=== PATIENT | female | born 1970 | race Caucasian/White ===

== ENCOUNTER → 2017-12-08 12:40 | Outpatient (REF) | payer OTHER, SELFPAY ==
[2017-12-08 14:11] LABS: Iron 64 ug/dL (50-175); Total Iron Binding Capacity 389 ug/dL (250-450); Transferrin Sat 16 % (15-50)
[2017-12-08 14:28] LABS: Ferritin 26 ng/mL (8-388)
[2017-12-08 14:49] LABS: Abs Immature Grans 0.03 k/cumm (0.0-0.09); Absolute Basophil Count 0.03 k/cumm (0.0-0.2); Absolute Eosinophil Count 0.04 k/cumm (0.0-0.7); Absolute Lymphocyte Count 1.48 k/cumm (1.2-3.4); Absolute Monocyte Count 0.62 k/cumm (0.11-0.7); Absolute Neutrophil Count 7.13 k/cumm (1.2-6.7); Basophils % 0.3; Eosinophils % 0.4; HCT 40.7 % (36.0-46.0); HGB 13.5 g/dL (12.0-15.5); Immature Grans % 0.3; Lymphocytes % 15.9; Mean Corp. HGB Concentration 33.2 g/dL (32.0-36.0); Mean Corpuscular Hemoglobin 30.3 pg (27.0-33.0); Mean Corpuscular Volume 91.5 fL (80-95); Mean Platelet Volume 10.5 fL (8.0-11.0); Monocytes % 6.6; Neutrophils % 76.5; Platelet Count 276 x1000/uL (130-400); RBC 4.45 m/cumm (4.00-5.20); RBC Distribution Width 14.9 % (11.7-14.6); Reticulocyte 1.6 % (0.5-2.4); White Blood Cell Count 9.33 k/cumm (4.4-10.8)
== END ==
LOC: NCHCN 12:40
PROVIDERS: Visit Provider Nurse Practitioner
DX: D64.9 Anemia, unspecified (principal)
CPT/HCPCS: 82728; 83540; 83550; 85025; 85045

== ENCOUNTER 2017-12-11 13:30 | Outpatient (RCR) | payer OTHER, SELFPAY ==
--- NOTE | 2017-11-28 08:30 | PTTR_ITS ---
DATE: 11/28/17 SUBJECTIVE: Iris states that her shoulder has been feeling pretty good. She was able to compete in her [employer] race last weekend and states that her shoulder didn't bother her at all. She has been good about doing her exercises and has also started a boxing class. Manual therapy: ([id number]). Patient demonstrates full AROM of the R shoulder. Her IR is comparable to the L side with both thumbs to T8. The patient denies pain. She received PROM of the R shoulder with impingement symptoms of 165 degrees of flexion and 160 degrees abduction. IR/ER are full. She received grade 2 AP and inferior GH joint mobilizations and cross friction massage to the greater tuberosity in sidelying. She received deep tissue mobilization techniques throughout the posterior cuff and friction massage to posterior capsule. Back in supine she tolerates full PROM without pain. Therapeutic procedures ([id number]). Patient was instructed in a progressed HEP consisting of 3 sets of 10 of the followin: Kneeling tricep kick backs with green theraband resistance. 2: Shoulder flexion at 90 degrees with 3-5# resistance 3: Overhead press with 3-5# resistance. The patient understands to stay within painfree ranges with this. I will plan to follow up with her in 2 weeks time for re-evaluation and progression. Direct treatment time: 30 mins Total treatment time: 30 mins SS/dl
--- NOTE | 2017-12-11 14:23 | PTTR_ITS ---
DATE: 12/11/17 SUBJECTIVE: Nina states that her shoulder had been feeling really good until yesterday. She did a barbell class yesterday and a dumbbell class today, and states that she struggled with each. She reports difficulty with overhead press with empty barbell (45#) and flies (20# dumbbells). Compliant with HEP: x Yes No OBJECTIVE: Manual therapy: ([id number]).Iris demonstrates full AROM, although with endrange pain into flexion and functional IR. She demonstrates full ER and IR, and does not demonstrate any compensatory scapular motions. She does demonstrate hypomobility of the right GH joint with both inferior and AP glides, and she received grade III joint mobs here. This was followed by lateral distraction techniques in cross body position, as well as CFM to the long head of the biceps tendon. Post-rx, she has improved comfort with functional IR and flexion. Therapeutic procedures ([id number]). * x HEP review: * x Provided skilled instruction in proper exercise performance: Patient demonstrated press ups and flies, both reproducing pain with her preferred weight. Dropped these to 15# resisted press up, which she completes without pain. and 15# resisted flies, with only minor end-range discomfort. She was instructed in towel stretch for IR and biceps stretching, both to be performed prior to resisted workouts. Direct treatment time: 25 minutes Total treatment time: 25 minutes A/P: Will have Nina continue her HEP, progressing her weight as she's able to tolerate. She'll contact me with any questions or concerns, and if I don't hear from her in 4 weeks, will consider formally discharged.
== END 2017-12-26 23:59 | disposition home or self-care (01) ==
LOC: PT 13:30
PROVIDERS: Visit Provider Nurse Practitioner
DX: M65.811 Other synovitis and tenosynovitis, right shoulder (principal)
CPT/HCPCS: 97110; 97140

== ENCOUNTER 2018-01-13 06:08 | Day surgery (SDC) | payer OTHER, SELFPAY ==
[2018-01-13 06:23] VITALS: BP 125/66; PULSE 56; RESP 16; TEMP 36.7; O2SAT 16
[2018-01-13] MEDS: Lactated Ringers 1,000 ML 30 ML IV (06:48)
[2018-01-13] MEDS: Bupivacaine 0.5% Pres-Free 30 ML VIAL (07:49)
--- NOTE | 2018-01-13 08:05 | ROE_ITS ---
Date of service: 01/13/18 Time of Service: 08:05 Operative Note DATE OF PROCEDURE: 01/13/18 PRE-OP DIAGNOSIS: 1. Rectal Pain 2. Constipation 3. Anal Fissure POST-OP DIAGNOSIS: same PROCEDURE: 1. Examination Under Anesthesia of Anus and Rectum 2. Lateral Sphincterotomy SURGEON: Quincy Mcdonald SECRET SERVICE AGENT: Lia Waters ANESTHESIA: MAC (Anesthestist: Davion Betancourt CRNA ASA II Mallampati 2) and local (Exparel 1.3 % mixed with 0.5% marcaine plain) ESTIMATED BLOOD LOSS: 1 COMPLICATIONS: None Patient was transported to: PACU Patient's condition: stable Indications: This is a 47-year-old woman, who has noticed over the last year worsening constipation associated with increasing discomfort. She was seen by her primary care provider recently, upon digital rectal exam it was felt to feel a mass in the rectoanal margin and was referred for evaluation. She denied any loss of weight, diaphoretic episodes, malaise or fatigue. She does say she has had increasing constipation. She has noticed difficulty having bowel movements and some discomfort occasionally with blood seen in the stool, but not often. It was recommended she undergo colonoscopy which she subsequently did. 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 It was further recommended that she have an Examination Under Anesthesia of the anus and rectum. The procedure was reviewed with her and the risks discussed. All her questions were answered to her satisfaction consent was obtained to proceed with examination under anesthesia with possible lateral sphincterotomy. Findings: Examination of the anus and rectum demonstrated a chronic anal fissure in the posterior midline with associated sentinel pile. Lateral sphincterotomy was subsequently performed. Procedure Description: The patient was brought to the preanesthesia staging area. Her identification was confirmed, and procedure reviewed. She was then brought to the operating room. She was positioned prone, all bony prominences were padded. Sedation was titrated for effect by the FLOWER STRIPPER. Monitoring for telemetry, end-tidal CO2, O2 saturation, blood pressure, were applied prior to induction of anesthesia. She had sequential compression devices placed also prior to anesthesia. An appropriate timeout was taken reviewing the patient's, identification, allergies medications, and procedure. The gluteal cleft was in the standard taping method. Perineum prepped with Betadine, and draped in the standard sterile fashion. I began by performing an digital rectal examination, in which I could feel tightened band of external sphincter muscle, measuring about 1 cm in width. I could also feel a lump in the posterior midline at about the level of the tightened band. I then dilated the anus using a bullet anoscope, inspecting the distal rectum and anus circumferentially. In doing this, I confirmed the presence of the posterior midline anal fissure with an associated sentinel pile that confirmed its chronicity. I then proceeded to treat this. I performed a lateral sphincterotomy in the following manner to treat the muscle picture. 90 degrees to the left of the posterior midline, I made a 2 cm radial incision, starting just above the anal verge and radiating out. I then used blunt dissection to dissect the palpable portion of the external sphincter muscle. Bluntly dissecting anterior and posterior to this muscle; I then used a right angle clamp to go under the tightened portion of the muscle and draw this up into the incision where it was visible. This segment was about a centimeter long and it was sharply divided using cautery. I obtained hemostasis with cautery. The wound was left open and a dry sterile dressing was applied. Prior to applying the dressing 1.3% Exparel mixed with half percent Marcaine plain was circumferentially injected around the anus. The patient was awakened in the operating room. She was brought to the day surgery recovery area in good condition. There were no complications during the case the patient tolerated very well.
[2018-01-13 08:15] VITALS: BP 148/89; PULSE 58; RESP 18; TEMP 36.5; O2SAT 100
--- NOTE | 2018-01-13 08:16 | W.PM.DSUDISC ---
Discharge Plan Disposition Patient Disposition: HOME Condition: Good Discharge Details Reason For Visit: ANAL FISSURE Attending Provider: Quincy Mcdonald Primary Care Provider: Meredith Rapp Home Meds and New Rx's Prescriptions: No Action cetirizine [Zyrtec] 10 MG tablet 10 mg PO DAILY PRNRF: 0 oxybutynin chloride 10 MG tablet extended release 24hr 10 mg PO DAILY RF: 0 methotrexate sodium 2.5 MG tablet 9 tab PO .WEEKLY RF: 0 lisinopril 10 MG tablet 10 mg PO DAILY RF: 0 folic acid 1 MG tablet 1 mg PO DAILY RF: 0 montelukast [Singulair] 10 MG tablet 10 mg PO DAILY RF: 0 fluticasone [Flonase Allergy Relief] 9.9 ML spray,suspension 9.9 ml NS DAILY RF: 0 naproxen 500 MG tablet 500 mg PO BID PRNRF: 0 adalimumab [Humira Pen Psoriasis-Uveitis] 40 MG/0.8 ML pen injector kit 40 mg SQ .QOWEEK RF: 0 multivitamin [Daily Multi-Vitamin] 1 EACH tablet 1 ea PO DAILY RF: 0 docusate sodium [Colace] 100 MG capsule 100 mg PO DAILY PRNRF: 0 Discharge Instructions Instructions: Sphincterotomy (DC) Additional Instructions: Dr. Quincy Mcdonald Post-Operative Discharge Instructions 1. Because there will be medication in your system for the next 24 hours, you may feel a little sleepy. Your coordination will be affected. Therefore: Do not drive or operate dangerous equipment for 24 hours. Do not drink alcohol beverages for 24 hours (not even beer). Plan to go home and rest for the day. Restrictions: Do not lift over 20lbs for 2 weeks. No strenuous bending or twisting for 2 weeks, if it hurts stop. No baths, you can shower. Let warm soapy water run over wound, then pat wound dry. Activity: The day of surgery spend most of the day resting in a comfortable bed or recliner. 2-3 times during the day get up and walk around the house. The day after surgery, or after your discharge, walk at least 3 times a day and spend increasing amounts of time walking and sitting up. If you are tired rest, but keep moving as able. Diet: Resume home diet as tolerated. Start with a light diet, your appetite will improve with time. Drink at least 4-6 glasses of water per day to keep hydrated. Wound Care: You may cover the wound with a dry sterile dressing to keep clothing from rubbing against the wound. Continue all your regular medications unless directed otherwise. Call the office or the Hospital Plan Consultant , If you have: Pain not controlled with pain medication. Nausea and vomiting. Temperature greater than 101 degrees Fahrenheit. Drainage from your wound that soaks through your dressing. *No more than 4000 milligrams of Tylenol in 24 hours. Narcotic pain medication can be constipating, if you have not had a bowel movement within 3 days use a laxative, I recommend Milk of Magnesia (MOM) 1oz. every 6 hrs until you have a bowel movement. I understand the above instructions and have no questions. Signature of Patient or Responsible Adult Escort Date/Time Name of Responsible Adult Escort Signature of Nurse Date/Time Revised 08/20/10 Referrals: Quincy Mcdonald DO [ [facility] STAFF PHYSICIAN] - 01/26/18 1:15 pm (Follow up after Lateral sphincterotomy for Anal Fissure) Activity:: see instructions Remove Dressings/Wound Care:: 48 hours Shower/Bathe:: 48 hours Diet:: resume regular diet DS: Diagnosis Discharge Diagnosis (1) Anal fissure: Start date: 01/13/18 Start time: 08:17 Status: Acute Asessment and Plan: EUA of anus and rectum with lateral sphincterotomy
[2018-01-13 08:20] VITALS: BP 151/85; PULSE 64; RESP 19; TEMP 36.4; O2SAT 100
--- NOTE | 2018-01-13 08:24 | PDOC.DSDIS_ITS ---
Discharge Plan Disposition Patient Disposition: HOME Condition: Good Discharge Details Reason For Visit: ANAL FISSURE Attending Provider: Quincy Mcdonald Primary Care Provider: Meredith Rapp Home Meds and New Rx's Prescriptions: No Action cetirizine [Zyrtec] 10 MG tablet 10 mg PO DAILY PRNRF: 0 oxybutynin chloride 10 MG tablet extended release 24hr 10 mg PO DAILY RF: 0 methotrexate sodium 2.5 MG tablet 9 tab PO .WEEKLY RF: 0 lisinopril 10 MG tablet 10 mg PO DAILY RF: 0 folic acid 1 MG tablet 1 mg PO DAILY RF: 0 montelukast [Singulair] 10 MG tablet 10 mg PO DAILY RF: 0 fluticasone [Flonase Allergy Relief] 9.9 ML spray,suspension 9.9 ml NS DAILY RF: 0 naproxen 500 MG tablet 500 mg PO BID PRNRF: 0 adalimumab [Humira Pen Psoriasis-Uveitis] 40 MG/0.8 ML pen injector kit 40 mg SQ .QOWEEK RF: 0 multivitamin [Daily Multi-Vitamin] 1 EACH tablet 1 ea PO DAILY RF: 0 docusate sodium [Colace] 100 MG capsule 100 mg PO DAILY PRNRF: 0 Discharge Instructions Instructions: Sphincterotomy (DC) Additional Instructions: Dr. Quincy Mcdonald Post-Operative Discharge Instructions 1. Because there will be medication in your system for the next 24 hours, you may feel a little sleepy. Your coordination will be affected. Therefore: * Do not drive or operate dangerous equipment for 24 hours. * Do not drink alcohol beverages for 24 hours (not even beer). * Plan to go home and rest for the day. Restrictions: * Do not lift over 20lbs for 2 weeks. * No strenuous bending or twisting for 2 weeks, if it hurts stop. * No baths, you can shower. Let warm soapy water run over wound, then pat wound dry. Activity: * The day of surgery spend most of the day resting in a comfortable bed or recliner. 2-3 times during the day get up and walk around the house. * The day after surgery, or after your discharge, walk at least 3 times a day and spend increasing amounts of time walking and sitting up. If you are tired rest, but keep moving as able. Diet: * Resume home diet as tolerated. * Start with a light diet, your appetite will improve with time. * Drink at least 4-6 glasses of water per day to keep hydrated. Wound Care: * You may cover the wound with a dry sterile dressing to keep clothing from rubbing against the wound. Continue all your regular medications unless directed otherwise. Call the office or the Hospital Groundskeeper Supervisor , If you have: * Pain not controlled with pain medication. * Nausea and vomiting. * Temperature greater than 101 degrees Fahrenheit. * Drainage from your wound that soaks through your dressing. *No more than 4000 milligrams of Tylenol in 24 hours. Narcotic pain medication can be constipating, if you have not had a bowel movement within 3 days use a laxative, I recommend Milk of Magnesia (MOM) 1oz. every 6 hrs until you have a bowel movement. I understand the above instructions and have no questions. _ Signature of Patient or Responsible Adult Escort Date/Time _ Name of Responsible Adult Escort _ Signature of Nurse Date/Time Revised 08/20/10 Referrals: Quincy Mcdonald DO [ [facility] STAFF PHYSICIAN] - 01/26/18 1:15 pm (Follow up after Lateral sphincterotomy for Anal Fissure) Activity:: see instructions Remove Dressings/Wound Care:: 48 hours Shower/Bathe:: 48 hours Diet:: resume regular diet DS: Diagnosis Discharge Diagnosis (1) Anal fissure: Start date: 01/13/18 Start time: 08:17 Status: Acute Asessment and Plan: EUA of anus and rectum with lateral sphincterotomy
[2018-01-13 08:25] VITALS: BP 142/107; PULSE 68; RESP 17; TEMP 36.4; O2SAT 100
[2018-01-13 09:04] VITALS: BP 139/95; PULSE 60; RESP 16; TEMP 36.4; O2SAT 95
[2018-01-13 10:05] VITALS: BP 117/77; PULSE 70; RESP 16; TEMP 37.1; O2SAT 99
== END 2018-01-13 12:44 | disposition home or self-care (01) ==
PROVIDERS: Visit Provider Surgery
PROC: (CPT 46200; principal; 2018-01-13 07:30)
PROC: (CPT 46080; 2018-01-13 07:30)
DX: K60.1 Chronic anal fissure (principal); K59.00 Constipation, unspecified; K62.89 Other specified diseases of anus and rectum; I10 Essential (primary) hypertension
CPT/HCPCS: 46200; J2250; J2405

== ENCOUNTER 2018-07-11 08:32 | Outpatient (CLI) | payer OTHER, SELFPAY ==
[2018-07-11 10:12] LABS: Abs Immature Grans 0.02 k/cumm (0.0-0.09); Absolute Basophil Count 0.03 k/cumm (0.0-0.2); Absolute Eosinophil Count 0.13 k/cumm (0.0-0.7); Absolute Lymphocyte Count 1.42 k/cumm (1.2-3.4); Absolute Monocyte Count 0.54 k/cumm (0.11-0.7); Absolute Neutrophil Count 4.55 k/cumm (1.2-6.7); Basophils % 0.4; Eosinophils % 1.9; HCT 38.6 % (36.0-46.0); HGB 13.4 g/dL (12.0-15.5); Immature Grans % 0.3; Lymphocytes % 21.2; Mean Corp. HGB Concentration 34.7 g/dL (32.0-36.0); Mean Corpuscular Hemoglobin 32.3 pg (27.0-33.0); Mean Platelet Volume 9.5 fL (8.0-11.0); Monocytes % 8.1; Neutrophils % 68.1; Platelet Count 267 x1000/uL (130-400); RBC 4.15 m/cumm (4.00-5.20); RBC Distribution Width 13.9 % (11.7-14.6); White Blood Cell Count 6.69 k/cumm (4.4-10.8)
[2018-07-11 11:19] LABS: ALT 19 U/L (12-78); AST 16 U/L (15-37); Albumin 3.7 g/dL (3.4-5.0); Alkaline Phosphatase 79 U/L (46-116); Anion Gap 8.5 mmol/L (3-11); BUN 13 mg/dL (7-18); Bilirubin, Total 0.5 mg/dL (0.2-1.0); CO2 27.5 mmol/L (21.0-32.0); CREATININE 1.06 mg/dL (0.55-1.02); Calcium 8.4 mg/dL (8.5-10.1); Chloride 104 mmol/L (98-107); Glucose 115 mg/dL (70-100); Potassium 4.2 mmol/L (3.5-5.1); Sodium 140 mmol/L (136-145); Total Protein 6.6 g/dL (6.4-8.2)
== END 2018-07-11 08:52 ==
PROVIDERS: PCP Nurse Practitioner Family; Visit Provider Internal Medicine Rheumatology
DX: L40.54 Psoriatic juvenile arthropathy (principal); Z79.899 Other long term (current) drug therapy
CPT/HCPCS: 80053; 85025

== ENCOUNTER 2018-11-28 09:48 | Outpatient (CLI) | payer BC, SELFPAY ==
[2018-11-28 10:22] LABS: Abs Immature Grans 0.01 k/cumm (0.0-0.09); Absolute Basophil Count 0.03 k/cumm (0.0-0.2); Absolute Eosinophil Count 0.13 k/cumm (0.0-0.7); Absolute Lymphocyte Count 1.73 k/cumm (1.2-3.4); Absolute Monocyte Count 0.51 k/cumm (0.11-0.7); Absolute Neutrophil Count 4.82 k/cumm (1.2-6.7); Basophils % 0.4; Eosinophils % 1.8; HCT 40.9 % (36.0-46.0); HGB 14.3 g/dL (12.0-15.5); Immature Grans % 0.1; Lymphocytes % 23.9; Mean Corpuscular Hemoglobin 32.6 pg (27.0-33.0); Mean Corpuscular Volume 93.2 fL (80-95); Mean Platelet Volume 9.6 fL (8.0-11.0); Monocytes % 7.1; Neutrophils % 66.7; Platelet Count 256 x1000/uL (130-400); RBC 4.39 m/cumm (4.00-5.20); RBC Distribution Width 12.3 % (11.7-14.6); White Blood Cell Count 7.23 k/cumm (4.4-10.8)
[2018-11-28 11:10] LABS: ALT 20 U/L (12-78); AST 20 U/L (15-37); Albumin 3.8 g/dL (3.4-5.0); Alkaline Phosphatase 71 U/L (46-116); Anion Gap 7.6 mmol/L (3-11); BUN 12 mg/dL (7-18); Bilirubin, Total 0.6 mg/dL (0.2-1.0); CO2 28.4 mmol/L (21.0-32.0); CREATININE 0.89 mg/dL (0.55-1.02); Calcium 8.3 mg/dL (8.5-10.1); Chloride 103 mmol/L (98-107); Glucose 83 mg/dL (70-100); Potassium 4.1 mmol/L (3.5-5.1); Sodium 139 mmol/L (136-145); Total Protein 6.9 g/dL (6.4-8.2)
== END 2018-11-28 10:08 ==
PROVIDERS: PCP Nurse Practitioner Family; Visit Provider Internal Medicine Rheumatology
DX: L40.54 Psoriatic juvenile arthropathy (principal); Z79.899 Other long term (current) drug therapy
CPT/HCPCS: 36415; 80053; 85025

== ENCOUNTER 2019-04-03 01:13 | Outpatient (CLI) | payer BC, SELFPAY ==
[2019-04-03 10:56] LABS: Abs Immature Grans 0.01 k/cumm (0.0-0.09); Absolute Basophil Count 0.04 k/cumm (0.0-0.2); Absolute Eosinophil Count 0.16 k/cumm (0.0-0.7); Absolute Lymphocyte Count 1.65 k/cumm (1.2-3.4); Absolute Monocyte Count 0.64 k/cumm (0.11-0.7); Absolute Neutrophil Count 3.69 k/cumm (1.2-6.7); Basophils % 0.6; Eosinophils % 2.6; HCT 40.9 % (36.0-46.0); HGB 14.3 g/dL (12.0-15.5); Immature Grans % 0.2; Lymphocytes % 26.7; Mean Corpuscular Hemoglobin 32.2 pg (27.0-33.0); Mean Corpuscular Volume 92.1 fL (80-95); Mean Platelet Volume 9.4 fL (8.0-11.0); Monocytes % 10.3; Neutrophils % 59.6; Platelet Count 265 x1000/uL (130-400); RBC 4.44 m/cumm (4.00-5.20); RBC Distribution Width 12.3 % (11.7-14.6); White Blood Cell Count 6.19 k/cumm (4.4-10.8)
[2019-04-03 11:58] LABS: ALT 24 U/L (14-59); AST 15 U/L (15-37); Albumin 3.9 g/dL (3.4-5.0); Alkaline Phosphatase 65 U/L (46-116); Anion Gap 9.4 mmol/L (3-11); BUN 14 mg/dL (7-18); Bilirubin, Total 0.7 mg/dL (0.2-1.0); CO2 29.6 mmol/L (21.0-32.0); Calcium 8.7 mg/dL (8.5-10.1); Chloride 104 mmol/L (98-107); Estimated GFR 58.69 (mL/min/1.73m2); Glucose 95 mg/dL (74-106); Potassium 4.2 mmol/L (3.5-5.1); Sodium 143 mmol/L (136-145); Total Protein 7.1 g/dL (6.4-8.2)
[2019-04-03 21:23] LABS: Calculated LDL 160 mg/dL; Cholesterol 241 mg/dL (<200); HDL Cholesterol 70 mg/dL (40-60); TSH (W/Ref FT4) 2.03 uIU/mL (0.36-3.74); Triglyceride 59 mg/dL (<150)
== END 2019-04-03 01:33 ==
PROVIDERS: PCP Nurse Practitioner Family; Referring Provider Nurse Practitioner Family; Visit Provider Internal Medicine Rheumatology
DX: L40.54 Psoriatic juvenile arthropathy (principal); Z79.899 Other long term (current) drug therapy; R53.83 Other fatigue; Z00.00 Encounter for general adult medical examination without abnormal findings; Z13.220 Encounter for screening for lipoid disorders
CPT/HCPCS: 36415; 80053; 80061; 84443; 85025

== ENCOUNTER 2019-05-03 01:11 | Outpatient (CLI) | payer BC, SELFPAY ==
--- NOTE | 2019-05-03 07:46 | DI.MAMMO_ITS ---
EXAM: MAMMO SCREENING CLINICAL HISTORY: SCREENING, Z12.39 TECHNIQUE: Mammograms were interpreted according to the usual protocol including computer analysis w [employer] CAD system, tomosynthesis and C-view imaging. COMPARISON: This is a baseline examination. FINDINGS: The breasts are composed of heterogeneously dense fibroglandular densities, Breast Density category C . No suspicious masses or suspicious microcalcifications are seen. Scattered benign calcifications are seen in both breasts. No skin thickening or abnormal axillary lymph nodes are seen. There has been no significant change from prior exams. IMPRESSION: BIRADS Category 2, negative mammogram with benign findings. Yearly screening mammography is recommen ded. BI-RADS Cat 2 - Benign Findings Breast Density - Category C - Heterogeneously dense BREAST DENSITY: The mammogram demonstrates the patient's breast tissue is dense. Dense breast tissue is very common and is not abnormal but dense breast tissue can make it harder to find cancer on a ma mmogram. Also, dense breast tissue may increase their breast cancer risk. This information about the result of the mammogram report was provided to the patient to raise their awareness. Use this report when you speak with the patient about their risks for breast cancer, which includes their family hist ory. At that time, you may recommend for more screening tests (Ultrasound or MRI) as they might be us eful based on their risk. A negative radiographic report should not delay biopsy if a dominant or clinically suspicious mass is present. Up to ten percent of cancers are not identified on mammography. A negative report may reinforce clinical impression. Adenosis and dense breasts may obscure an underlying neoplasm. False positive reports average 6 to 10%.
== END 2019-05-03 01:31 ==
PROVIDERS: PCP Nurse Practitioner Family; Visit Provider Nurse Practitioner Family
DX: Z12.31 Encounter for screening mammogram for malignant neoplasm of breast (principal)
CPT/HCPCS: 77063; 77067

== ENCOUNTER 2019-12-01 03:57 | Outpatient (CLI) | payer BC, SELFPAY ==
[2019-12-01 08:05] LABS: Abs Immature Grans 0.03 10^3/uL (0.0-0.06); Absolute Basophil Count 0.04 10^3/uL (0.0-0.2); Absolute Eosinophil Count 0.12 10^3/uL (0.0-0.7); Absolute Lymphocyte Count 1.75 10^3/uL (1.2-3.4); Absolute Monocyte Count 0.62 10^3/uL (0.1-0.8); Absolute Neutrophil Count 4.81 10^3/uL (1.2-6.7); Basophils % 0.5; Eosinophils % 1.6; HCT 42.9 % (36.0-46.0); HGB 14.7 g/dL (11.2-15.7); Immature Grans % 0.4; Lymphocytes % 23.7; MCH 32.3 pg (27.0-33.0); MCHC 34.3 % (32.0-36.0); MCV 94.3 fL (80-95); MPV 9.4 fL (8.0-11.0); Monocytes % 8.4; Neutrophils % 65.4; Nucleated RBC 0 %; Platelet Count 266 10^3/uL (130-400); RBC 4.55 10^6/uL (3.93-5.22); RDW 12.4 % (11.7-14.6); RDW-SD 42.6 fL; WBC 7.37 10^3/uL (4.4-10.8)
[2019-12-01 09:22] LABS: ALT 28 U/L (14-59); AST 23 U/L (15-37); Albumin 4.2 g/dL (3.4-5.0); Alkaline Phosphatase 59 U/L (46-116); Anion Gap 6.1 mmol/L (3-11); BUN 13 mg/dL (7-18); CO2 29.9 mmol/L (21.0-32.0); CREATININE 0.89 mg/dL (0.55-1.02); Calcium 9.2 mg/dL (8.5-10.1); Chloride 103 mmol/L (98-107); Glucose 99 mg/dL (74-106); Potassium 4.2 mmol/L (3.5-5.1); Sodium 139 mmol/L (136-145); Total Protein 7.3 g/dL (6.4-8.2)
== END 2019-12-01 04:17 ==
PROVIDERS: Nurse Practitioner Family; PCP Nurse Practitioner Family; Visit Provider Internal Medicine Rheumatology
DX: L40.50 Arthropathic psoriasis, unspecified (principal); Z79.899 Other long term (current) drug therapy
CPT/HCPCS: 36415; 80053; 85025

== ENCOUNTER 2020-04-05 09:57 | Outpatient (REF) | payer BC, SELFPAY ==
[2020-04-05 22:10] LABS: Abs Immature Grans 0.03 10^3/uL (0.0-0.06); Absolute Basophil Count 0.06 10^3/uL (0.0-0.2); Absolute Eosinophil Count 0.23 10^3/uL (0.0-0.7); Absolute Lymphocyte Count 1.65 10^3/uL (1.2-3.4); Absolute Monocyte Count 0.53 10^3/uL (0.1-0.8); Absolute Neutrophil Count 4.78 10^3/uL (1.2-6.7); Basophils % 0.8; Eosinophils % 3.2; HCT 39.3 % (36.0-46.0); HGB 13.6 g/dL (11.2-15.7); Immature Grans % 0.4; Lymphocytes % 22.7; MCH 32.2 pg (27.0-33.0); MCHC 34.6 % (32.0-36.0); MCV 92.9 fL (80-95); MPV 10.3 fL (8.0-11.0); Monocytes % 7.3; Neutrophils % 65.6; Nucleated RBC 0 %; Platelet Count 249 10^3/uL (130-400); RBC 4.23 10^6/uL (3.93-5.22); RDW 12.1 % (11.7-14.6); RDW-SD 40.7 fL; WBC 7.28 10^3/uL (4.4-10.8)
[2020-04-05 22:38] LABS: ALT 41 U/L (14-59); AST 33 U/L (15-37); Albumin 3.7 g/dL (3.4-5.0); Alkaline Phosphatase 57 U/L (46-116); Anion Gap 8.9 mmol/L (3-11); BUN 10 mg/dL (7-18); Bilirubin, Total 0.6 mg/dL (0.2-1.0); CO2 25.1 mmol/L (21.0-32.0); CREATININE 0.87 mg/dL (0.55-1.02); Calcium 8.2 mg/dL (8.5-10.1); Calculated LDL 103 mg/dL (<100); Chloride 104 mmol/L (98-107); Cholesterol 189 mg/dL (<200); Glucose 88 mg/dL (74-106); HDL Cholesterol 53 mg/dL (40-60); Potassium 3.8 mmol/L (3.5-5.1); Sodium 138 mmol/L (136-145); Total Protein 6.4 g/dL (6.4-8.2); Triglyceride 169 mg/dL (<150)
== END 2020-04-05 10:17 ==
LOC: NCHCN 09:57
PROVIDERS: PCP Nurse Practitioner Family; Visit Provider Nurse Practitioner Family
DX: L40.50 Arthropathic psoriasis, unspecified (principal); Z13.220 Encounter for screening for lipoid disorders
CPT/HCPCS: 80053; 80061; 85025

== ENCOUNTER 2020-08-10 03:07 | Outpatient (CLI) | payer BC, SELFPAY ==
[2020-08-10 07:51] LABS: Abs Immature Grans 0.02 10^3/uL (0.0-0.06); Absolute Basophil Count 0.05 10^3/uL (0.0-0.2); Absolute Lymphocyte Count 1.79 10^3/uL (1.2-3.4); Absolute Monocyte Count 0.53 10^3/uL (0.1-0.8); Absolute Neutrophil Count 3.89 10^3/uL (1.2-6.7); Basophils % 0.8; Eosinophils % 3.1; HCT 43.4 % (36.0-46.0); HGB 14.4 g/dL (11.2-15.7); Immature Grans % 0.3; Lymphocytes % 27.6; MCH 30.8 pg (27.0-33.0); MCHC 33.2 % (32.0-36.0); MCV 92.9 fL (80-95); MPV 9.8 fL (8.0-11.0); Monocytes % 8.2; Nucleated RBC 0 %; Platelet Count 337 10^3/uL (130-400); RBC 4.67 10^6/uL (3.93-5.22); RDW-SD 44.1 fL; WBC 6.48 10^3/uL (4.4-10.8)
[2020-08-10 08:47] LABS: ALT 36 U/L (14-59); AST 27 U/L (15-37); Albumin 4.1 g/dL (3.4-5.0); Alkaline Phosphatase 79 U/L (46-116); Anion Gap 10.7 mmol/L (3-11); BUN 13 mg/dL (7-18); Bilirubin, Total 0.7 mg/dL (0.2-1.0); CO2 27.3 mmol/L (21.0-32.0); CREATININE 1.1 mg/dL (0.55-1.02); Calcium 8.8 mg/dL (8.5-10.1); Chloride 103 mmol/L (98-107); Estimated GFR 52.16 (mL/min/1.73m2); Glucose 119 mg/dL (74-106); Sodium 141 mmol/L (136-145); Total Protein 7.6 g/dL (6.4-8.2)
== END 2020-08-10 03:08 | disposition home or self-care (01) ==
LOC: LBO 03:07
PROVIDERS: PCP Nurse Practitioner Family; Visit Provider Nurse Practitioner Family
DX: L40.50 Arthropathic psoriasis, unspecified (principal); Z79.899 Other long term (current) drug therapy
CPT/HCPCS: 36415; 80053; 85025

== ENCOUNTER 2020-12-19 04:58 | Outpatient (CLI) | payer BC, SELFPAY ==
[2020-12-19 07:23] LABS: Abs Immature Grans 0.01 10^3/uL (0.0-0.06); Absolute Basophil Count 0.03 10^3/uL (0.0-0.2); Absolute Eosinophil Count 0.15 10^3/uL (0.0-0.7); Absolute Lymphocyte Count 1.26 10^3/uL (1.2-3.4); Absolute Monocyte Count 0.57 10^3/uL (0.1-0.8); Absolute Neutrophil Count 3.36 10^3/uL (1.2-6.7); Basophils % 0.6; Eosinophils % 2.8; HCT 37.7 % (36.0-46.0); Immature Grans % 0.2; Lymphocytes % 23.4; MCH 29.1 pg (27.0-33.0); MCHC 31.8 % (32.0-36.0); MCV 91.3 fL (80-95); MPV 9.3 fL (8.0-11.0); Monocytes % 10.6; Neutrophils % 62.4; Nucleated RBC 0 %; Platelet Count 311 10^3/uL (130-400); RBC 4.13 10^6/uL (3.93-5.22); RDW-SD 46.5 fL; WBC 5.38 10^3/uL (4.4-10.8)
[2020-12-19 08:53] LABS: ALT 18 U/L (14-59); AST 17 U/L (15-37); Albumin 3.9 g/dL (3.4-5.0); Alkaline Phosphatase 65 U/L (46-116); Anion Gap 7.3 mmol/L (3-11); BUN 9 mg/dL (7-18); Bilirubin, Total 0.6 mg/dL (0.2-1.0); CO2 29.7 mmol/L (21.0-32.0); CREATININE 1.1 mg/dL (0.55-1.02); Calcium 8.9 mg/dL (8.5-10.1); Chloride 103 mmol/L (98-107); Estimated GFR 52.16 (mL/min/1.73m2); Glucose 96 mg/dL (74-106); Potassium 4.8 mmol/L (3.5-5.1); Sodium 140 mmol/L (136-145)
== END 2020-12-19 04:59 | disposition home or self-care (01) ==
PROVIDERS: PCP Nurse Practitioner Family; Visit Provider Nurse Practitioner Family
DX: L40.50 Arthropathic psoriasis, unspecified (principal); Z79.899 Other long term (current) drug therapy
CPT/HCPCS: 36415; 80053; 85025

== ENCOUNTER 2021-05-01 03:16 | Outpatient (CLI) | payer BC, SELFPAY | END 2021-05-01 03:17 | disposition home or self-care (01) | LOC: LBO 03:16 | PROVIDERS: PCP Nurse Practitioner Family; Visit Provider Internal Medicine Rheumatology ==

== ENCOUNTER 2021-05-08 02:01 | Outpatient (CLI) | payer BC, SELFPAY ==
[2021-05-08 08:10] LABS: Abs Immature Grans 0.03 10^3/uL (0.0-0.06); Absolute Basophil Count 0.02 10^3/uL (0.0-0.2); Absolute Eosinophil Count 0.09 10^3/uL (0.0-0.7); Absolute Lymphocyte Count 1.45 10^3/uL (1.2-3.4); Absolute Monocyte Count 0.63 10^3/uL (0.1-0.8); Absolute Neutrophil Count 5.14 10^3/uL (1.2-6.7); Basophils % 0.3; Eosinophils % 1.2; HCT 40.3 % (36.0-46.0); HGB 12.9 g/dL (11.2-15.7); Immature Grans % 0.4; Lymphocytes % 19.7; MCH 28.4 pg (27.0-33.0); MCV 88.8 fL (80-95); MPV 9.5 fL (8.0-11.0); Monocytes % 8.6; Neutrophils % 69.8; Nucleated RBC 0 %; Platelet Count 238 10^3/uL (130-400); RBC 4.54 10^6/uL (3.93-5.22); RDW-SD 54.6 fL; WBC 7.36 10^3/uL (4.4-10.8)
[2021-05-08 09:04] LABS: ALT 22 U/L (14-59); AST 18 U/L (15-37); Albumin 3.7 g/dL (3.4-5.0); Alkaline Phosphatase 91 U/L (46-116); BUN 18 mg/dL (7-18); Bilirubin, Total 0.4 mg/dL (0.2-1.0); CO2 29.1 mmol/L (21.0-32.0); Calcium 8.6 mg/dL (8.5-10.1); Estimated GFR 58.22 (mL/min/1.73m2); Glucose 72 mg/dL (74-106)
[2021-05-08 09:07] LABS: Anion Gap 7.9 mmol/L (3-11); Chloride 102 mmol/L (98-107); Potassium 4.2 mmol/L (3.5-5.1); Sodium 139 mmol/L (136-145)
== END 2021-05-08 02:02 | disposition home or self-care (01) ==
LOC: LBO 02:02
PROVIDERS: PCP Nurse Practitioner Family; Visit Provider Nurse Practitioner Family
DX: L40.50 Arthropathic psoriasis, unspecified (principal); Z79.899 Other long term (current) drug therapy
CPT/HCPCS: 36415; 80053; 85025

== ENCOUNTER 2021-05-17 01:10 | Outpatient (CLI) | payer BC, SELFPAY ==
--- NOTE | 2021-05-17 | DI.MAMMO_ITS ---
Exam(s) MAMMO SCREENING EXAM: MAMMO SCREENING CLINICAL HISTORY: SCREENING, Z12.31. TECHNIQUE: Bilateral full field digital CC and MLO mammographic images were obtained with 3D tomosyn thesis and utilizing computer aided detection (CAD). COMPARISON: Prior mammograms were reviewed, the most recent being April 2019. FINDINGS: There are no new spiculated masses nor malignant appearing microcalcification groups. Benign-appearing microcalcifications are again noted in both breast. There is no significant architectural distortion nor skin thickening-retraction. IMPRESSION: No radiographic evidence of malignancy. BI-RADS Category 1 - Negative Breast Density - Category C - Heterogeneously dense Breast density Category C or D implies that the patient has dense breast tissue. Dense breast tissue can make it harder to find cancer on a mammogram. Dense breast tissue is also associated with an incr eased risk of breast cancer. This information about the result of the mammogram report was provided to the patient to raise their awareness. Use this report when you speak with the patient about their risks for breast cancer, which includes their family history. At that time, you may recommend additional screening tests (Ultrasoun d or MRI) as these tests may add significant information. A negative radiographic report should not delay biopsy if a dominant or clinically suspicious mass is present. Up to ten percent of cancers are not identified on mammography. A negative report may reinforce clinical impression. Adenosis and dense breasts may obscure an underlying neoplasm. False positive reports average 6 to 10%. Patient will receive a letter notifying them of these results.
== END 2021-05-17 01:30 ==
PROVIDERS: PCP Nurse Practitioner Family; Visit Provider Nurse Practitioner Family
DX: Z12.31 Encounter for screening mammogram for malignant neoplasm of breast (principal); R92.8 Other abnormal and inconclusive findings on diagnostic imaging of breast
CPT/HCPCS: 77063; 77067

== ENCOUNTER 2022-02-08 01:44 | Outpatient (CLI) | payer BC, SELFPAY ==
--- OUTSIDE RECORDS SUMMARY | 2022-02-08 01:50 | XMS_ITS | Encounter Summary ---
:1970 Author Organization [facility] Address [address] [place] [address] Care Team Providers Name Role Phone Kayleigh Mallory ELECTRONICS RESEARCH ENGINEER Primary Care Provider Encounter Details Date Type Department Care Team Description 08/15/2021 Ambulatory Pharmacy [facility] Damaris Torrez [facility] Ambulatory [facility] - [facility] [address], [place] [phone] Social History Tobacco Use Types Packs/Day Years Used Date Never Smoker Smokeless Tobacco: Never Used Alcohol Use Standard Drinks/Week Comments Yes 0 (1 standard drink = 0.6 oz pure alcoho l) About 2 beers a month if that Sex Assigned at Date Recorded Female 06/29/2019 10:58 EST documented as of this encounter Functional Status Functional Status Response Date of Assessment Because of a physical, mental, or emotional condition, No 02/02/2018 does this person have difficulty doing errands alone such as visiting a doctor's office or shopping? Cognitive Status Response Date of Assessment Because of a physical, mental, or emotional condition, No 02/02/2018 does this person have serious difficulty concentrating, remembering, or making decisions? documented as of this encounter Plan of Treatment Upcoming Encounters Date Type Specialty Care Team Description 02/28/2022 Office Visit Rheumatology Harsh Malloy, ELBERT [address] [facility] ivan Ruiz, [address] [place], [place] [phone] (Wo rk) documented as of this encounter Visit Diagnoses Not on filedocumented in this encounter Care Teams Can Top Setter Relationship Specialty Start Date End Date Kayleigh Mallory FNP PCP - General 02/04/19 [address] [place], [place] [address] documented as of this encounter
--- OUTSIDE RECORDS SUMMARY | 2022-02-08 01:50 | XMS_ITS | Encounter Summary ---
:1970 Author Organization [facility] Address [address] [place] [address] Care Team Providers Name Role Phone Kayleigh Mallory WILFREDO Primary Care Provider Encounter Details Date Type Department Care Team Description 12/06/2021 Ambulatory Pharmacy [facility] Damaris Torrez [facility] Ambulatory Pharmacy - [place] [address], [place] [phone] Social History Tobacco Use Types Packs/Day Years [...] making decisions? documented as of this encounter Progress Notes Lois Li - 12/06/2021 1354 EDT [employer] Specialty Pharmacy Delivery Information Hours: Friday-Friday 8:30am - 5:00pm *Pharmacist available telecommunication systems designer 18/11 Delivery Service: [employer] Delivery Window: None Specified Date of Delivery: 12/12/21 Tracking # : [id number] Kamala stevens - 12/06/2021 1354 EDT Specialty Pharmacy Non-Outreach Documentation Medication: Humira Clinic: Rheum Reason for Encounter: Outreach Notes: PA required Follow up date: 12/07/21 or daily Follow up reason: Outreach documented in this encounter Plan of Treatment Upcoming Encounters Date Type Specialty Care Team Description 02/28/2022 Office Visit Rheumatology Harsh Malloy NP [address] [facility], [address] [place], [place] [phone] (Wo rk) documented as of this encounter Visit Diagnoses Not on filedocumented in this encounter Care Teams Water Proofer Relationship Specialty Start Date End Date Kayleigh Mallory FNP PCP - General 02/04/19 [address] [place] [address] documented as of this encounter
--- OUTSIDE RECORDS SUMMARY | 2022-02-08 01:50 | XMS_ITS | Encounter Summary ---
:1970 Author Organization [facility] Address [address] [place] [address] Care Team Providers Name Role Phone Kayleigh Mallory TALLOW REFINER Primary Care Provider Reason for Visit Reason Comments Other Encounter Details Date Type Department Care Team Description 08/18/2021 Refill [facility] Judson Malloy NP Other Rheumatology & Immunology - [address] [place] [address], [address], [address] [place], [place] [phone] [place] [phone] (Wo rk) Social History Tobacco Use Types Packs/Day Years [...] making decisions? documented as of this encounter Ordered Prescriptions Prescription Sig Dispensed Refills Start Date End Date methotrexate 2.5 mg TAKE 10 TABLETS BY 120 Tablet 0 08/21/19 22 08/28/2021 tablet MOUTH ONCE A WEEK documented in this encounter Plan of Treatment Upcoming Encounters Date Type Specialty Care Team Description 02/28/2022 Office Visit Rheumatology Harsh Malloy, WOOL PRESSER [address] [facility], [facility], [address] [place], [place] [phone] (Wo rk) documented as of this encounter Visit Diagnoses Not on filedocumented in this encounter Discontinued Medications Medication Sig Discontinue Reason Start Date End Date methotrexate 2.5 mg TAKE 10 TABLETS BY 03/01/2021 tablet MOUTH ONCE A WEEK documented as of this encounter Care Teams Conveyor Attendant Relationship Specialty Start Date End Date Kayleigh Mallory FNP PCP - General 02/04/19 [address] [place] [address] documented as of this encounter
--- OUTSIDE RECORDS SUMMARY | 2022-02-08 01:50 | XMS_ITS | Encounter Summary ---
:1970 Author Organization [facility] Address [address] [place] [address] Care Team Providers Name Role Phone Kayleigh Mallory WILFREDO Primary Care Provider Encounter Details Date Type Department Care Team Description 01/31/2022 Ambulatory Pharmacy [facility] Damaris Torrez [facility] Ambulatory Pharmacy - [facility] [address] [place], [place] [phone] Social History Tobacco Use Types Packs/Day Years [...] Office Visit Rheumatology Harsh Malloy, ELBERT 111 [facility], [address] [place], [place] [phone] (Wo rk) documented as of this encounter Visit Diagnoses Not on filedocumented in this encounter Care Teams Marketing Programs Specialist Relationship Specialty Start Date End Date Kayleigh Mallory FNP PCP - General 02/04/19 [address] [place], [place] [id number] documented as of this encounter
--- OUTSIDE RECORDS SUMMARY | 2022-02-08 01:50 | XMS_ITS | Encounter Summary ---
:1970 Author Organization [facility] Address [address] [place] [address] Care Team Providers Name Role Phone Aamir Malloryy WILFREDO Primary Care Provider Reason for Referral Laboratory Services (Routine/Next Available) - New Request Specialty Diagnoses / Procedures Referred By Contact Refer red To Contact Diagnoses Psoriatic arthritis (HCC) Long-term use of high-risk medication Harsh Malloy, ELBERT Procedures COMPLETE BLOOD COUNT AND DIFFERENTIAL [address] [phone] Referral ID Status Reason Start Date Expiration Date Visits V isits Requested Authorized [id number] New Request 05/08/2021 4 4 Laboratory Services (Routine/Next Available) - New Request Specialty Diagnoses / Procedures Referred By Contact Refer red To Contact Diagnoses Psoriatic arthritis (HCC) Long-term use of high-risk medication Harsh Malloy NP Procedures COMPREHENSIVE METABOLIC PANEL (CMP) [address] [phone] Referral ID Status Reason Start Date Expiration Date Visits V isits Requested Authorized [id number] New Request 05/08/2021 4 4 Encounter Details Date Type Department Care Team Description 05/08/2021 Orders Only [facility] Rafaela Penn tic arthritis ([facility]) ([facility]) (Primary Dx); Rheumatology & IMAN Atkinson Long-term use of high-risk medication Immunology - Main [place] mpus [address] [place] [address] Social History Tobacco Use Types Packs/Day Years [...] documented as of this encounter Progress Notes China Penn RN - 05/08/2021 1140 EST Pt arrived at lab In [facility] to do orders but they had . New orders faxed to [phone]. documented in this encounter Plan of Treatment Upcoming Encounters Date Type Specialty Care Team Description 02/28/2022 Office Visit Rheumatology Harsh Malloy, ELBERT 111 [facility], [facility], [address] [place], [place] [address] (Wo rk) Scheduled Orders Name Type Priority Associated Diagnoses Order S chedule COMPREHENSIVE METABOLIC Lab Routine Psoriatic arthrit is Every 3-4 months for 4 PANEL (CMP) ([facility]) (HCC) Occurrences starting Long-term use of 05/08/2021 until high-risk medication 023, 1 completed COMPLETE BLOOD COUNT AND Lab Routine Psoriatic arthri tis Every 3-4 months for 4 DIFFERENTIAL (HCC-CMS) (HCC) Occurrences starting Long-term use of 05/08/2021 until high-risk medication 023, 1 completed documented as of this encounter Results (ABNORMAL) COMPLETE BLOOD COUNT AND DIFFERENTIAL (08/28/2021 11:04 EDT) WBC 7.00 4.00 - 12.40 [facility] LABORATORY SERVICES RBC 4.48 3.86 - 5.04 [facility] LABORATORY SERVICES Hemoglobin 14.2 11.6 - 15.2 [facility] gm/dL LABORATORY SERVICES HCT 41.4 34.9 - 44.4 % [facility] LABORATORY SERVICES MCV 92 81 - 98 fl [facility] LABORATORY SERVICES MCH 31.7 26.7 - 33.3 pg [facility] LABORATORY SERVICES MCHC 34.3 32.1 - 35.9 [facility] gm/dL LABORATORY SERVICES RDW-CV 13.9 <14.7 % [facility] LABORATORY SERVICES RDW-SD 47.3 <50.4 fl [facility] LABORATORY SERVICES PLT 265 141 - 377 /[facility] LABORATORY SERVICES MPV 9.5 9.5 - 12.7 fl [facility] LABORATORY SERVICES Neutrophils 62.0 % [facility] LABORATORY SERVICES Lymphocytes 24.1 % [facility] LABORATORY SERVICES Monocytes 11.6 % [facility] LABORATORY SERVICES Eosinophils 1.3 % [facility] LABORATORY SERVICES Basophils 0.9 % [facility] LABORATORY SERVICES Immature Grans 0.1 % [facility] LABORATORY SERVICES Absolute Neutrophils 4.34 2.20 - 8.85 [facility] LABORATORY SERVICES Absolute Lymphocytes 1.69 1.09 - 3.30 [facility] LABORATORY SERVICES Absolute Monocytes 0.81 (H) 0.10 - 0.80 [facility] LABORATORY SERVICES Absolute Eosinophils 0.09 0.03 - 0.61 [facility] LABORATORY SERVICES Absolute Basophils 0.06 0.01 - 0.11 [facility] LABORATORY SERVICES Absolute Immature 0.01 0.00 - 0.06 [facility] LABORATORY SERVICES Type of Differential: Auto [facility] LABORATORY SERVICES Specimen Blood - Venous blood (substance) Performing Organization Address [facility] Phon e Number [facility] LABORATORY [address] [place] [address] SERVICES COMPREHENSIVE METABOLIC PANEL (CMP) (08/28/2021 11:04 EDT) Pathologist Sig nature Sodium 136 136 - 145 mmol/L [facility] LABORATORY SERVICES Potassium 4.1 3.5 - 5.0 mmol/L [facility] LABORATORY SERVICES Chloride 100 96 - 110 mmol/L [facility] LABORATORY SERVICES CO2 Total 28 22 - 32 mmol/L [facility] LABORATORY SERVICES Glucose 89 70 - 100 mg/dL [facility] LABORATORY SERVICES BUN 18 10 - 26 mg/dL [facility] LABORATORY SERVICES Creatinine 0.84 0.52 - 1.04 [facility] mg/dL LABORATORY SERVICES eGFR 83 >60 [facility] mL/min/1.73m2 LABORATORY SERVICES Total Protein 7.0 6.3 - 8.2 g/dL [facility] LABORATORY SERVICES Albumin 4.2 3.4 - 4.9 g/dL [facility] LABORATORY SERVICES Alkaline Phosphatase 65 38 - 126 U/L [facility] LABORATORY SERVICES AST 29 15 - 46 U/L [facility] LABORATORY SERVICES ALT 14 <35 U/L [facility] LABORATORY SERVICES Bilirubin, Total <0.5 <1.4 mg/dL [facility] LABORATORY SERVICES Calcium 8.9 8.5 - 10.5 mg/dL [facility] LABORATORY SERVICES Albumin/Globulin Ratio 1.5 1.0 - 2.5 [facility] LABORATORY SERVICES Anion Gap 8 5 - 14 [facility] LABORATORY SERVICES Specimen Blood - Venous blood (substance) Performing Organization Address City/[facility]/ZIP Code Phon e Number [facility] LABORATORY [address] [place] [address] SERVICES documented in this encounter Visit Diagnoses Diagnosis Psoriatic arthritis (HCC) - Primary Psoriatic arthropathy Long-term use of high-risk medication documented in this encounter Care Teams Mexican Food Maker Hand Relationship Specialty Start Date End Date Kayleigh Mallory FNP PCP - General 02/04/19 [address] [place], [place] [id number] documented as of this encounter
--- OUTSIDE RECORDS SUMMARY | 2022-02-08 01:50 | XMS_ITS | Encounter Summary ---
:1970 Author Organization [facility] Address [address] [place] [address] Care Team Providers Name Role Phone Kayleigh Mallory CRM MARKETING EXECUTIVE Primary Care Provider Encounter Details Date Type Department Care Team Description 12/06/2021 Hospital Encounter [facility] [address] [place] [address] Social History Tobacco Use Types Packs/Day Years [...] making decisions? documented as of this encounter Discharge Instructions Zo Pozo RN - 12/05/2021 What is EVUSHELD (tixagevimab co-packaged with cilgavimab)? EVUSHELD is an investigational medicine used in adults and adolescents (12 years of age and older who weigh at least 88 pounds [40 kg]) for preexposure prophylaxis for prevention of COVID-19 in persons who are: - not currently infected with SARS-CoV-2 and who have not had recent known close contact with someone who is infected with SARS-CoV-2 and - Who have moderate to severe immune compromise due to a medical condition or have received immunosuppressive medicines or treatments and may not mount an adequate immune response to COVID-19 vaccination or - For whom vaccination with any available COVID-19 vaccine, according to the approved or authorized schedule, is not recommended due to a history of severe adverse reaction (such as severe allergic reaction) to a COVID-19 vaccine(s) or COVID-19 vaccine ingredient(s). Please notify your health care provider or seek medical attention if you have any signs of an allergic reaction. These include: - Difficulty breathing, wheezing - Swelling of face, lips, tongue, or throat. - Chest tightness - Fever - Rash, Itching - Severe nausea or vomiting - Chest pain or pressure Also report any new adverse symptoms to your physician immediately. documented in this encounter Medications at Time of Discharge Medication Sig Dispensed Refills Start Date End Date acetaminophen (TYLENOL) Take 1,000 mg by 0 500 mg tablet mouth every 6 hours as needed. adalimumab (HUMIRA,CF, Inject 0.4 mL into 6 Kit 1 08/28 PEN) 40 mg/0.4 mL pen the skin every 14 days. Specialty. cetirizine (ZYRTEC) 10 mg Take 10 mg by mouth 0 tablet daily. DOCUSATE SODIUM (COLACE Take by mouth. 0 ORAL)Indications: Need for pneumococcal vaccination, Psoriatic arthropathy (HCC), Encounter for long-term (current) use of medications, Hammer toes of both feet, Psoriasis with arthropathy (HCC) fluocinonide (LIDEX) 0.05 Apply daily to rash 1 Tube 3 0 05/07/2017 % ointment if needed FLUTICASONE PROPIONATE Inhale as directed 0 (FLUTICASONE INHL) daily. folic acid (FOLVITE) 1 mg Take 1 Tablet by 90 Tablet 3 06/2021 tablet mouth daily. lisinopril (PRINIVIL, Take 10 mg by mouth 0 ZESTRIL) 10 mg tablet daily loratadine-pseudoephedrine Take 1 Tab by mouth 0 (CLARITIN-D 24 HOUR) daily as needed. 10-240 mg per tablet Reported on 04/17/2016 methotrexate 2.5 mg tablet Take 10 Tablets by 120 Tablet 0 0 08/28/2021 mouth once a week. montelukast (SINGULAIR) 10 Take 10 mg by mouth 0 mg tablet daily Multivitamins with Take 1 Tab by mouth 0 Minerals Tab daily. oxybutynin (DITROPAN) 5 mg Take 5 mg by mouth 2 0 tablet times daily. documented as of this encounter Discharge Disposition Disposition Code Departure Means Destination Home or Self Alf documented in this encounter Progress Notes Zo Everett RN - 12/06/2021 1000 EDT Nina Boothe arrived to [facility] for and Evusheld injection ordered by Dr Malloy to diagnosis code of L40.50, L40.9. Injection given in the right and left dorsal gluteal muscle Patient tolerated infusion well, no s/s of reaction. Patient educated to call doctor who ordered Evusheld if complications or any concerns any time. Reminded of over the counter medications (ie benadryl and tylenol) to use at home for side effects of sensitivity/ allergic reaction and to call clinic and/or 911 for difficulty breathing and/or chest pain. Patient discharged home. documented in this encounter Plan of Treatment Upcoming Encounters Date Type Specialty Care Team Description 02/28/2022 Office Visit Rheumatology Harsh Malloy NP 111 [facility], [address] [place], [place] [address] (Wo rk) documented as of this encounter Visit Diagnoses Not on filedocumented in this encounter Administered Medications Inactive Administered Medications - up to 3 most recent administrations Medication Order MAR Action Action Date Dose Rate Site tixagevimab 150 mg/1.5 ml-cilgavimab Given 12/06/2021 10:03 EDT 600 mg 150 mg/1.5 ml (EVUSHELD) EUA injections 600 mg 600 mg, intramuscular, NOW X1, 1 dose, On Roxanne 12/06/21 at 1000, Routine, Outpatient Infusion documented in this encounter Orders Medications Ordered That Might Not Have Count Last Ord ered Date First Ordered Date Been Administered diphenhydrAMINE (BENADRYL) injection 50 mg 1 12/06 EPINEPHrine (ADRENALIN) injection 0.3 mg 1 022 methylPREDNISolone sod suc(PF) 1 12/06/2021 (SOLU-MEDROL) injection 100 mg tixagevimab 150 mg/1.5 ml-cilgavimab 150 1 022 mg/1.5 ml (EVUSHELD) EUA injections 600 mg documented in this encounter Care Teams Furrier Shop Supervisor Relationship Specialty Start Date End Date Kayleigh Mallory FNP PCP - General 02/04/19 [address] [place] [address] documented as of this encounter
--- OUTSIDE RECORDS SUMMARY | 2022-02-08 01:50 | XMS_ITS | Encounter Summary ---
:1970 Author Organization [facility] Address [address] [place] [address] Care Team Providers Name Role Phone Kayleigh Mallory HYDROMETEOROLOGY TEACHER Primary Care Provider Encounter Details Date Type Department Care Team Description 01/11/2022 Ambulatory Pharmacy [facility] [address] [place] [address] Social History Tobacco Use Types Packs/Day Years [...] documented as of this encounter Progress Notes Migdalia Mejia - 01/11/2022 1526 EDT [facility] Specialty Pharmacy Delivery Information Hours: Friday-Friday 8:30am - 5:00pm *Pharmacist available national facilities manager 18/11 Delivery Service: [employer] Delivery Window: None Specified Date of Delivery: Fri (01/18) Tracking # : [id number] documented in this encounter Plan of Treatment Upcoming Encounters Date Type Specialty Care Team Description 02/28/2022 Office Visit Rheumatology Harsh Malloy, VENEER STOCK GRADER 111 [facility], [facility], [address] [place], [place] [address] (Wo rk) documented as of this encounter Visit Diagnoses Not on filedocumented in this encounter Care Teams Finance And Administration Manager Relationship Specialty Start Date End Date Kayleigh Mallory FNP PCP - General 02/04/19 [address] [place], [place] [address] documented as of this encounter
--- OUTSIDE RECORDS SUMMARY | 2022-02-08 01:50 | XMS_ITS | Encounter Summary ---
:[address] [facility] Address [address] [place] [address] Care Team Providers Name Role Phone Kayleigh Mallory TEACHER EMOTIONALLY IMPAIRED Primary Care Provider Encounter Details Date Type Department Care Team Description 12/20/2020 Ambulatory Pharmacy [facility] Eric Redmond RP H Ambulatory Pharmacy - [facility] [address] [place], [place] [phone] Social History Tobacco Use Types Packs/Day Years [...] Rheumatology Harsh Malloy, ELBERT 111 [facility], [address] [place], [place] [address] (Wo rk) documented as of this encounter Visit Diagnoses Not on filedocumented in this encounter Care Teams Bowling Alley Operator Relationship Specialty Start Date End Date Kayleigh Mallory FNP PCP - General 02/04/19 [address] [place], [place] [address] documented as of this encounter
--- OUTSIDE RECORDS SUMMARY | 2022-02-08 01:50 | XMS_ITS | Encounter Summary ---
:1970 Author Organization [facility] Address [address] [place] [address] Care Team Providers Name Role Phone Kayleigh Mallory BALANCING MACHINE SET UP WORKER Primary Care Provider Reason for Visit Reason Onset Date Comments Medications Refill 12/20/2020 Encounter Details Date Type Department Care Team Description 12/20/2020 Telephone [facility] Harsh Malloy Me dications Refill Rheumatology & CONSTRUCTION LABORER Immunology - [facility] mpus [phone] [place] [address] [place] [address] (Wo rk) Social History Tobacco Use [...] Sig Dispensed Refills Start Date End Date adalimumab (HUMIRA,CF, Inject 0.4 mL into 6 Pen 1 12/2003/01/2021 PEN) 40 mg/0.4 mL pen the skin every 14 days. Specialty. documented in this encounter Miscellaneous Notes Telephone Encounter - Rodrigue Saez - 12/20/2020 7529 EDT Medication Request Medication: humira Medication refill: yes Medication dose change: no Refill due: 12/20/20 Pharmacy: [facility] Renewal of Humira is required for continued use; order sent per refill protocol to [facility] for dispensing. Follow-up visit scheduled with Harsh Malloy on 03/01/21. Eric Redmond, Pharm.D., [facility] Pharmacist Clinician - Rheumatology 12/20/2020lectronically signed by Eric Redmond [facility] at 12/20/2020 15:32 EDT documented in this encounter Plan of Treatment Upcoming Encounters Date Type Specialty Care Team Description 02/28/2022 Office Visit Rheumatology Harsh Malloy, CONSTRUCTION LABORER 111 [facility], [address] [place] [address] (Wo rk) documented as of this encounter Visit Diagnoses Not on filedocumented in this encounter Discontinued Medications Medication Sig Discontinue Reason Start Date End Date adalimumab (HUMIRA,CF, Inject 0.4 mL into Reorder 05/18/2020 12/20/2020 PEN) 40 mg/0.4 mL pen the skin every 14 days. Specialty. documented as of this encounter Care Teams Engineer Fishing Vessel Relationship Specialty Start Date End Date Kayleigh Mallory FNP PCP - General 02/04/19 [address] [place] [address] documented as of this encounter
--- OUTSIDE RECORDS SUMMARY | 2022-02-08 01:50 | XMS_ITS | Encounter Summary ---
:1970 Author Organization [facility] Address [address] [place] [address] Care Team Providers Name Role Phone Kayleigh Mallory WILFREDO Primary Care Provider Encounter Details Date Type Department Care Team Description 10/05/2021 Ambulatory Pharmacy [facility] Damaris Torrez [facility] Ambulatory Pharmacy - [facility] [address] [place], [place] [phone] Social History Tobacco Use Types Packs/Day Years [...] Office Visit Rheumatology Harsh Malloy, ELBERT 111 [facility] ivan Ruiz, [address] [place], [place] [address] (Wo rk) documented as of this encounter Visit Diagnoses Not on filedocumented in this encounter Care Teams Avionics Engineer Relationship Specialty Start Date End Date Kayleigh Mallory FNP PCP - General 02/04/19 [address] [place], [place] [address] documented as of this encounter
--- OUTSIDE RECORDS SUMMARY | 2022-02-08 01:50 | XMS_ITS | Encounter Summary ---
:1970 Author Organization [facility] Address [address] [place] [address] Care Team Providers Name Role Phone Kayleigh Mallory WILFREDO Primary Care Provider Reason for Referral Consult (See Order Priority) - Authorized Specialty Diagnoses / Procedures Referred By Contact Refer red To Contact Pharmacy Diagnoses Psoriasis with arthropathy (HCC) Harsh Malloy, ELBERT Ambulatory Pharmacy [address] [place] [id number] [place] [address], [address] [place] [address] Referral ID Status Reason Start Expiration Visits Visits Date Date Requested Authorized [id number] Authorized Specialty 12/06/2021 1 1 Services Required Question Answer PA Type: Re-auth Medication to be Prior Authorized: Humira 40 mg pen vaughn bQ every 14 days Comments The purpose of this request is to inform precertification staff that the requested service needs to be reviewed for prior-a uthorization. Reason for Visit Reason Onset Date Comments Prior Auth, Medication 12/06/2021 Humira (re-auth) Encounter Details Date Type Department Care Team Description 12/06/2021 Telephone [facility] Harsh Malloy, Solomon ior Auth, Rheumatology & TANK TRUCK ENGINE MECHANIC Medication (Humira Immunology - [address] (re-auth )) [address] [place] [address] Sara, [place] [phone] (Wo rk) Social History Tobacco Use Types [...] making decisions? documented as of this encounter Miscellaneous Notes Telephone Encounter - Silke Jeong - 12/06/2021 1637 EDT Prior Authorization Approval Medication: Humira CF 40mg/0.4ml, inject every 14 days Insurance Name: [employer] Insurance Type: Commercial Approval Dates: 12/06/2021 to 12/06/2022 Authorization Number: [id number] Benefits Information: [facility] able to fill? : Yes Required Pharmacy: N/A Additional Info/Other Notes: Prior Authorization Submission Process - Routine Medication: Humira CF 40mg/0.4ml, inject every 14 days Insurance: [employer] Insurance Type: Commercial Date PA Request Received: 12/06/2021 PA Submission Date: 12/06/2021 [facility] [place]: [id number] Notes: Submitted by: Silke Phone: [phone] elephone Encounter - Kamala Hull - 12/06/2021 1358 EDT SPR[facility] Request for PA/Funding Drug Name: Humira Next Injection Date: Unknown--call out to PT RX Insurance: [facility] Qty Remaining: Unknown PA Required: Yes Funding Needed: No documented in this encounter Plan of Treatment Upcoming Encounters Date Type Specialty Care Team Description 02/28/2022 Office Visit Rheumatology Harsh Malloy, TANK TRUCK ENGINE MECHANIC [address] [facility] [facility], [facility], [address] [place], [place] [address] (Wo rk) Scheduled Referrals Name Type Priority Associated Order Schedule Diagnoses AMB CONS/FOLLOW UP Outpatient Routine/Next Psoriasis with Expecte d: SPECIALTY PHARMACY Referral Available arthropathy 2 MEDICATION PRIOR ([facility]) (HCC) (Approxi mate), AUTHORIZATION Expires: REQUEST 12/06/2022 documented as of this encounter Visit Diagnoses Diagnosis Psoriasis with arthropathy (HCC) - Prima ry Psoriatic arthropathy documented in this encounter Care Teams Agency Sales Representative Relationship Specialty Start Date End Date Kayleigh Mallory FNP PCP - General 02/04/19 [address] [place] [address] documented as of this encounter
--- OUTSIDE RECORDS SUMMARY | 2022-02-08 01:50 | XMS_ITS | Encounter Summary ---
:1970 Author Organization [facility] Address [address] [place] [address] Care Team Providers Name Role Phone Kayleigh Mallory DIAGRAM CLERK Primary Care Provider Encounter Details Date Type Department Care Team Description 02/26/2021 Ambulatory Pharmacy [facility] Eric Redmond RP H Ambulatory Pharmacy - [facility] [address] [place], [place] [phone] Social History Tobacco Use Types Packs/Day Years [...] Office Visit Rheumatology Harsh Malloy, ELBERT 111 [facility] venue [facility], Adair Ruiz, [address] [place], [place] [address] (Wo rk) documented as of this encounter Visit Diagnoses Not on filedocumented in this encounter Care Teams Range Manager Relationship Specialty Start Date End Date Kayleigh Mallory FNP PCP - General 02/04/19 [address] [place], [place] [address] documented as of this encounter
--- OUTSIDE RECORDS SUMMARY | 2022-02-08 01:50 | XMS_ITS | Encounter Summary ---
:1970 Author Organization [facility] Address [address] [place] [address] Care Team Providers Name Role Phone Kayleigh Mallory DIRECTOR OF PERSONNEL Primary Care Provider Encounter Details Date Type Department Care Team Description 05/08/2021 Abstract [facility] Judson Malloy NP Rheumatology & Immunology - [address] [place] [id number] [place] [phone] (Wo rk) Social History Tobacco Use [...] 02/28/2022 Office Visit Rheumatology Harsh Malloy NP [address] [place], [place] [address], [place] [phone] (Wo rk) documented as of this encounter Procedures Procedure Name Priority Date/Time Associated Diagnosis Comme nts COMPLETE BLOOD COUNT AND Routine 05/08/2021 Res ults for this DIFFERENTIAL procedure are i n the results section . COMPREHENSIVE METABOLIC Routine 05/08/2021 Resu lts for this PANEL (CMP) procedure are i n the results section . documented in this encounter Results COMPREHENSIVE METABOLIC PANEL (CMP) (05/08/2021) Pathologist Sig nature GFR, Calculated, 58.22 [facility]INT [facility] External Glucose, Serum, 72Comment: low [facility] External Albumin, External 3.7 [facility] Total Alkaline 91 [facility] Phosphatase, External ALT, External 22 [facility] AST, External 18 [facility] BUN, External 18 [facility] Calculated Calcium, [facility] External Calcium, External 8.6 [facility] Chloride, External 102 [facility] CO2, External 29.1 [facility] Creatinine, External 1.0 [facility] Fasting?, External [facility] Potassium, External 4.2 [facility] Sodium, External 139 [facility] Total Protein, 7.0 [facility] External Bilirubin, Total, 0.4 [facility] External Specimen Blood - Venous blood (substance) Performing Organization Address City/State/ZIP Code Phon e Number [facility] COMPLETE BLOOD COUNT AND DIFFERENTIAL (05/08/2021) Pathologist Sig nature WBC, External 7.36 [facility] RBC, External 4.54 [facility] Hemoglobin, External 12.9 [facility] HCT, External 40.3 [facility] MCV, External 88.8 [facility] MCH, External 28.4 [facility] MCHC, External 32.0 [facility] PLT, External 238 [facility] RDW-CV, External 17.0 [facility] Neutrophils, External 69.8 [facility] Lymphocytes, External 19.7 [facility] Monocytes, External 8.6 [facility] Eosinophils, External 1.2 [facility] Basophils, External 0.3 [facility] ABS Neutrophils, External 5.14 [facility] ABS Lymphs, External 1.45 [facility] ABS Monocytes, External 0.63 [facility]INT [facility] RE ABS Eosinophils, External 0.09 [facility] ABS Basophils, External 0.02 [facility] POINT [facility] RE Specimen Blood - Venous blood (substance) Performing Organization Address City/State/ZIP Code Phon e Number [facility] documented in this encounter Visit Diagnoses Not on filedocumented in this encounter Care Teams Phlebotomy Director Relationship Specialty Start Date End Date Kayleigh Mallory FNP PCP - General 02/04/19 [address] [place] [address] documented as of this encounter
--- OUTSIDE RECORDS SUMMARY | 2022-02-08 01:50 | XMS_ITS | Encounter Summary ---
:1970 Author Organization [facility] Address [address] [place] [address] Care Team Providers Name Role Phone Kayleihg Mallory LOGISTICS ASSOCIATE Primary Care Provider Encounter Details Date Type Department Care Team Description 03/23/2021 Ambulatory Pharmacy [facility] Eric Redmond RP H Ambulatory Pharmacy - [facility] [address] [place], [place] [phone] Social History Tobacco Use Types Packs/Day Years [...] Office Visit Rheumatology Harsh Malloy, ELBERT 111 [facility] venue [facility], Adair Ruiz, [address] [place], [place] [phone] (Wo rk) documented as of this encounter Visit Diagnoses Not on filedocumented in this encounter Care Teams Casing Runner Relationship Specialty Start Date End Date Kayleigh Mallory FNP PCP - General 02/04/19 [address] [place], [place] [address] documented as of this encounter
--- OUTSIDE RECORDS SUMMARY | 2022-02-08 01:50 | XMS_ITS | Encounter Summary ---
:1970 Author Organization [facility] Address [address] [place] [address] Care Team Providers Name Role Phone Kayleigh Mallory SCIENCE FACULTY MEMBER Primary Care Provider Encounter Details Date Type Department Care Team Description 06/21/2021 Ambulatory Pharmacy [facility] Eric Redmond RP H Ambulatory Pharmacy - [facility] [address] [place], [place] [phone] Social History Tobacco Use Types Packs/Day Years [...] Office Visit Rheumatology Harsh Malloy, ELBERT 111 [facility] venue [facility], [address], [address] [place], [place] [phone] (Wo rk) documented as of this encounter Visit Diagnoses Not on filedocumented in this encounter Care Teams Mail Delivery Supervisor Relationship Specialty Start Date End Date Kayleigh Mallory FNP PCP - General 02/04/19 [address] [place], [place] [address] documented as of this encounter
--- OUTSIDE RECORDS SUMMARY | 2022-02-08 01:50 | XMS_ITS | Encounter Summary ---
:1970 Author Organization [facility] Address [address] [place] [address] Care Team Providers Name Role Phone Kayleigh Mallory CHIEF PHARMACIST Primary Care Provider Reason for Visit Laboratory Services (Routine/Next Available) - New Request Specialty Diagnoses / Procedures Referred By Contact Refer red To Contact Diagnoses Psoriatic arthritis (HCC) Long-term use of high-risk medication Harsh Malloy, GREEN END MAN Procedures COMPREHENSIVE METABOLIC PANEL (CMP) [address] [facility], [address] [place] [phone] Referral ID Status Reason Start Date Expiration Date Visits V isits Requested Authorized [id number] New Request 05/08/2021 4 4 Encounter Details Date Type Department Care Team Description 08/28/2021 Phlebotomy Only [facility] 2 Senior Application Security Consultant, Acc Psoria tic arthritis ([facility]) (HCC); Phlebotomy Phlebotomy Long-term use of high-risk m edication [address] [place], [place] [phone] Social History Tobacco Use Types Packs/Day Years [...] Office Visit Rheumatology Harsh Malloy NP 111 [facility], [facility], [facility] 5 [place], [place] [phone] (Wo rk) documented as of this encounter Procedures Procedure Name Priority Date/Time Associated Comments Diagnosis COMPLETE BLOOD COUNT Routine 08/28/2021 11:04 Psoriatic arthri tis Results for this AND DIFFERENTIAL EDT ([facility] ([facility]) procedure are in Long-term use of the results high-risk section. medication COMPREHENSIVE Routine 08/28/2021 11:04 Psoriatic arthritis Res ults for this METABOLIC PANEL (CMP) EDT ([facility]) ([facility]) procedure are in Long-term use of the results high-risk section. medication documented in this encounter Results (ABNORMAL) COMPLETE BLOOD COUNT AND DIFFERENTIAL (08/28/2021 11:04 EDT) WBC 7.00 4.00 - 12.40 [facility] LABORATORY SERVICES RBC 4.48 3.86 - 5.04 [facility] M[facility] LABORATORY SERVICES Hemoglobin 14.2 11.6 - 15.2 [facility] gm/dL LABORATORY SERVICES HCT 41.4 34.9 - 44.4 % [facility] LABORATORY SERVICES MCV 92 81 - 98 fl [facility] LABORATORY SERVICES MCH 31.7 26.7 - 33.3 pg [facility] LABORATORY SERVICES MCHC 34.3 32.1 - 35.9 [facility] gm/dL LABORATORY SERVICES RDW-CV 13.9 <14.7 % [facility] LABORATORY SERVICES RDW-SD 47.3 <50.4 fl [facility] LABORATORY SERVICES PLT 265 141 - 377 K/[facility] LABORATORY SERVICES MPV 9.5 9.5 - 12.7 fl [facility] LABORATORY SERVICES Neutrophils 62.0 % [facility] LABORATORY SERVICES Lymphocytes 24.1 % [facility] LABORATORY SERVICES Monocytes 11.6 % [facility] LABORATORY SERVICES Eosinophils 1.3 % [facility] LABORATORY SERVICES Basophils 0.9 % [facility] LABORATORY SERVICES Immature Grans 0.1 % [facility] LABORATORY SERVICES Absolute Neutrophils 4.34 2.20 - 8.85 [facility] K[facility] LABORATORY SERVICES Absolute Lymphocytes 1.69 1.09 - 3.30 [facility] LABORATORY SERVICES Absolute Monocytes 0.81 (H) 0.10 - 0.80 [facility] LABORATORY SERVICES Absolute Eosinophils 0.09 0.03 - 0.61 [facility] LABORATORY SERVICES Absolute Basophils 0.06 0.01 - 0.11 [facility] LABORATORY SERVICES Absolute Immature 0.01 0.00 - 0.06 [facility] LABORATORY SERVICES Type of Differential: Auto [facility] LABORATORY SERVICES Specimen Blood - Venous blood (substance) Performing Organization Address City/State/ZIP Code Phon e Number [facility] LABORATORY [address] [place] [address] SERVICES COMPREHENSIVE METABOLIC PANEL (CMP) (08/28/2021 11:04 EDT) Pathologist Sig nature Sodium 136 136 - 145 mmol/L [facility] LABORATORY SERVICES Potassium 4.1 3.5 - 5.0 mmol/L [facility] LABORATORY SERVICES Chloride 100 96 - 110 mmol/L [facility] LABORATORY SERVICES CO2 Total 28 22 - 32 mmol/L [facility] LABORATORY SERVICES Glucose 89 70 - 100 mg/dL [facility] LABORATORY SERVICES BUN 18 10 - 26 mg/dL [facility] LABORATORY SERVICES Creatinine 0.84 0.52 - 1.04 [facility] mg/dL LABORATORY SERVICES eGFR 83 >60 [facility] mL/min/1.73m2 LABORATORY SERVICES Total Protein 7.0 6.3 - 8.2 g/dL [facility] LABORATORY SERVICES Albumin 4.2 3.4 - 4.9 g/dL [facility] LABORATORY SERVICES Alkaline Phosphatase 65 38 - 126 U/L [facility] LABORATORY SERVICES AST 29 15 - 46 U/L [facility] LABORATORY SERVICES ALT 14 <35 U/L [facility] LABORATORY SERVICES Bilirubin, Total <0.5 <1.4 mg/dL [facility] LABORATORY SERVICES Calcium 8.9 8.5 - 10.5 mg/dL [facility] LABORATORY SERVICES Albumin/Globulin Ratio 1.5 1.0 - 2.5 [facility] LABORATORY SERVICES Anion Gap 8 5 - 14 [facility] LABORATORY SERVICES Specimen Blood - Venous blood (substance) Performing Organization Address City/State/ZIP Code Phon e Number [facility] LABORATORY [address] [place] [address] SERVICES documented in this encounter Visit Diagnoses Diagnosis Psoriatic arthritis (HCC) Psoriatic arthropathy Long-term use of high-risk medication documented in this encounter Care Teams Supervisor Dyer Relationship Specialty Start Date End Date Kayleigh Mallory FNP PCP - General 02/04/19 [address] [place] [address] documented as of this encounter
--- OUTSIDE RECORDS SUMMARY | 2022-02-08 01:50 | XMS_ITS | Encounter Summary ---
:1970 Author Organization [facility] Address [address] [place] [address] Care Team Providers Name Role Phone Kayleigh Mallory RN CARDIOVASCULAR Primary Care Provider Encounter Details Date Type Department Care Team Description 05/21/2021 Ambulatory Pharmacy [facility] Eric Redmond RP H Ambulatory Pharmacy - [facility] [address] [place], [place] [phone] Social History Tobacco Use Types Packs/Day Years [...] Office Visit Rheumatology Harsh Malloy, ELBERT 111 [facility] venue [facility], [address], [address] [place], [place] [phone] (Wo rk) documented as of this encounter Visit Diagnoses Not on filedocumented in this encounter Care Teams Ball Points Inspector Relationship Specialty Start Date End Date Kayleigh Mallory FNP PCP - General 02/04/19 [address] [place], [place] [address] documented as of this encounter
--- OUTSIDE RECORDS SUMMARY | 2022-02-08 01:51 | XMS_ITS | Encounter Summary ---
:1970 Author Organization [facility] Address [address] [place] [address] Care Team Providers Name Role Phone Kayleigh Mallory GAS METER CHECKER Primary Care Provider Reason for Visit Reason Comments Other Encounter Details Date Type Department Care Team Description 10/23/2019 Refill [facility] Judson Malloy NP Other Rheumatology & Immunology - [address] [place] [address] [address] [place], [place] [phone] [place] [phone] (Wo rk) Social History Tobacco Use [...] Sig Dispensed Refills Start Date End Date folic acid (FOLVITE) 1 mg TAKE 1 TABLET BY 90 Tab 3 09/2708/24/2020 tablet MOUTH EVERY DAY documented in this encounter Plan of Treatment Upcoming Encounters Date Type Specialty Care Team Description 02/28/2022 Office Visit Rheumatology Harsh Malloy, CORRECTIONAL OFFICER LIEUTENANT 111 [facility], [facility], [address] [place], [place] [phone] (Wo rk) documented as of this encounter Visit Diagnoses Not on filedocumented in this encounter Discontinued Medications Medication Sig Discontinue Reason Start Date End Date folic acid (FOLVITE) 1 TAKE 1 TABLET BY 04/30/2019 0 10/23/2019 mg tablet MOUTH ONCE DAILY documented as of this encounter Care Teams Screener Operator Relationship Specialty Start Date End Date Kayleigh Mallory FNP PCP - General 02/04/19 [address] [place] [address] documented as of this encounter
--- OUTSIDE RECORDS SUMMARY | 2022-02-08 01:51 | XMS_ITS | Encounter Summary ---
:1970 Author Organization [facility] Address [address] [place] [address] Care Team Providers Name Role Phone Kayleigh Mallory WILFREDO Primary Care Provider Encounter Details Date Type Department Care Team Description 01/17/2020 Ambulatory Pharmacy [facility] Eric Redmond RP H Ambulatory Pharmacy - [facility] [address] [place], [place] [phone] Social History Tobacco Use Types Packs/Day Years [...] Office Visit Rheumatology Harsh Malloy, ELBERT 111 [facility], [address], [address] [place], [place] [phone] (Wo rk) documented as of this encounter Visit Diagnoses Not on filedocumented in this encounter Care Teams Manugrapher Relationship Specialty Start Date End Date Kayleigh Mallory FNP PCP - General 02/04/19 [address] [place], [place] [address] documented as of this encounter
--- OUTSIDE RECORDS SUMMARY | 2022-02-08 01:51 | XMS_ITS | Encounter Summary ---
:1970 Author Organization [facility] Address [address] [place] [address] Care Team Providers Name Role Phone Kayleigh Mallory RETIREMENT SALES CONSULTANT Primary Care Provider Encounter Details Date Type Department Care Team Description 10/26/2019 Orders Only [facility] Rafaela Penn tic arthritis ([facility]) (Primary Dx); Rheumatology & IMAN [place] Long-term use of high-risk medication Immunology - [facility] [place] [facility] [address] [place] [address] Social History Tobacco Use Types [...] as of this encounter Progress Notes China Penn, IMAN - 10/26/2019 1554 EDT New standing lab orders faxed to [facility]. documented in this encounter Plan of Treatment Upcoming Encounters Date Type Specialty Care Team Description 02/28/2022 Office Visit Rheumatology Harsh Malloy, RUG HOOKER HAND 111 [facility], [facility] 5 [place], [place] [phone] (Wo rk) documented as of this encounter Visit Diagnoses Diagnosis Psoriatic arthritis (HCC) - Primary Psoriatic arthropathy Long-term use of high-risk medication documented in this encounter Care Teams Elementary Science Teacher Relationship Specialty Start Date End Date Kayleigh Mallory FNP PCP - General 02/04/19 [address] [place], [place] [address] documented as of this encounter
--- OUTSIDE RECORDS SUMMARY | 2022-02-08 01:51 | XMS_ITS | Encounter Summary ---
:1970 Author Organization [facility] Address [address] [place] [address] Care Team Providers Name Role Phone Kayleigh Mallory WILFREDO Primary Care Provider Encounter Details Date Type Department Care Team Description 10/11/2019 Ambulatory Pharmacy [facility] Eric Redmond RP H Ambulatory Pharmacy - [facility] [address] [place], [place] [phone] Social History Tobacco Use Types Packs/Day Years [...] Office Visit Rheumatology Harsh Malloy, ELBERT 111 [facility], [facility] ivan Ruiz, Level [address] [place], [place] [phone] (Wo rk) documented as of this encounter Visit Diagnoses Not on filedocumented in this encounter Care Teams Senior Mobile Developer Relationship Specialty Start Date End Date Kayleigh Mallory FNP PCP - General 02/04/19 [address] [place], [place] [address] documented as of this encounter
--- OUTSIDE RECORDS SUMMARY | 2022-02-08 01:51 | XMS_ITS | Encounter Summary ---
:1970 Author Organization [facility] Address [address] [place] [address] Care Team Providers Name Role Phone Kayleigh Mallory CASE ASSISTANT Primary Care Provider Reason for Visit Reason Comments Other Encounter Details Date Type Department Care Team Description 04/30/2019 Refill [facility] Judson Malloy NP Other Rheumatology & Immunology - [address] [place] [address] [address] [place], [place] [phone] [place] [phone] (Wo rk) Social History Tobacco Use [...] mg TAKE 1 TABLET BY 90 Tab 1 06/201910/23/2019 tablet MOUTH ONCE DAILY documented in this encounter Miscellaneous Notes Telephone Encounter - Marisol Tejeda, IMAN - 04/30/2019 4597 EST Medication: folic acid 1 mg Last follow up:02/05/19 Next follow up:08/13/19 Last labs:04/03/19 [facility] [place] documented in this encounter Plan of Treatment Upcoming Encounters Date Type Specialty Care Team Description 02/28/2022 Office Visit Rheumatology Harsh Malloy NP 111 [facility], [facility], [address] [place], [place] [phone] (Wo rk) documented as of this encounter Visit Diagnoses Not on filedocumented in this encounter Discontinued Medications Medication Sig Discontinue Reason Start Date End Date folic acid (FOLVITE) 1 mg Take 1 Tab by mouth 11/13/19 19 04/30/2019 tablet daily. documented as of this encounter Care Teams Physician President Relationship Specialty Start Date End Date Kayleigh Mallory FNP PCP - General 02/04/19 [address] [place] [address] documented as of this encounter
--- OUTSIDE RECORDS SUMMARY | 2022-02-08 01:51 | XMS_ITS | Encounter Summary ---
:[address] [facility] Address [address] [place] [address] Care Team Providers Name Role Phone Kayleigh Mallory WILFREDO Primary Care Provider Encounter Details Date Type Department Care Team Description 12/20/2019 Ambulatory Pharmacy [facility] Eric Redmond RP H Ambulatory Pharmacy - [facility] [address] [place], [place] [phone] Social History Tobacco Use Types Packs/Day Years [...] Office Visit Rheumatology Harsh Malloy, ELBERT 111 [facility], [facility] ivan Ruiz, Level [address] [place], [place] [phone] (Wo rk) documented as of this encounter Visit Diagnoses Not on filedocumented in this encounter Care Teams Chemical Packager Relationship Specialty Start Date End Date Kayleigh Mallory FNP PCP - General 02/04/19 [address] [place], [place] [address] documented as of this encounter
--- OUTSIDE RECORDS SUMMARY | 2022-02-08 01:51 | XMS_ITS | Encounter Summary ---
:1970 Author Organization [facility] Address [address] [place] [address] Care Team Providers Name Role Phone Kayleigh Mallory DRUG CLERK Primary Care Provider Encounter Details Date Type Department Care Team Description 10/18/2020 Ambulatory Pharmacy [facility] Eric Redmond RP H Ambulatory Pharmacy - [facility] [address] [place], [place] [phone] Social History Tobacco Use Types Packs/Day Years [...] Office Visit Rheumatology Harsh Malloy, ELBERT 111 [facility] venue [facility], [address], [address] [place], [place] [phone] (Wo rk) documented as of this encounter Visit Diagnoses Not on filedocumented in this encounter Care Teams Games Dealer Relationship Specialty Start Date End Date Kayleigh Mallory FNP PCP - General 02/04/19 [address] [place], [place] [address] documented as of this encounter
--- OUTSIDE RECORDS SUMMARY | 2022-02-08 01:51 | XMS_ITS | Encounter Summary ---
:[address] [facility] Address [address] [place] [address] Care Team Providers Name Role Phone Unknown, Provider Primary Care Provider Reason for Visit Reason Onset Date Comments Medications Refill 10/20/2018 Encounter Details Date Type Department Care Team Description 10/20/[address] [facility] Harsh Malloy Me dications Refill Rheumatology & TECHNICAL SERVICE REPRESENTATIVE Immunology - [facility] [phone] [place] [address], [place] [phone] (Wo rk) Social History Tobacco [...] Dispensed Refills Start Date End Date adalimumab (NATANAELIRA,CF, Inject 40 mg into 3 Kit 1 201805/10/2019 PEN) 40 mg/0.4 mL pen the skin every 14 injector kit days. Specialty. adalimumab (HUMIRA PEN) 40 Inject 1 Pen into 6 Pen 1 10/22/2018 mg/0.8 mL pen kit the skin every 14 days. documented in this encounter Miscellaneous Notes Addendum Note - Eric Redmond RPH - 10/22/2018 1325 EDT Addended by: ERIC REDMOND on: 10/22/2018 13:25 Modules accepted: Orders elephone Encounter - Talisha Loja RN - 10/22/2018 0927 EDT From: Nina Boothe Sent: 10/20/2018 15:25 EDT Subject: Medication Renewal Request Nina Boothe would like a refill of the following medications: HUMIRA PEN 40 mg/0.8 mL pen kit [Harsh Malloy, LADIES' LOCKER ROOM ATTENDANT] Patient Comment: [facility] says that they are waiting for a refill authorization from my provider. I am not sure why as they were supposed to be processing an insurance coverage change....but they asked that I reach out to you. Preferred pharmacy: [facility] - [address] documented in this encounter Plan of Treatment Upcoming Encounters Date Type Specialty Care Team Description 02/28/2022 Office Visit Rheumatology Harsh Malloy, ELBERT 111 [facility], [facility], [address] [place], [place] [phone] (Wo rk) documented as of this encounter Visit Diagnoses Not on filedocumented in this encounter Discontinued Medications Medication Sig Discontinue Reason Start Date End Date HUMIRA PEN 40 mg/0.8 INJECT ONE PEN (40 MG) Reorder 06/29/2018 10/20/2018 mL pen kit SUBCUTANEOUSLY EVERY OTHER WEEK. REFRIGERATE. adalimumab (HUMIRA Inject 1 Pen into the Error 10/22/2018 10/22/2018 PEN) 40 mg/0.8 mL skin every 14 days. pen kit documented as of this encounter Care Teams Makeup Artist Relationship Specialty Start Date End Date Unknown, Provider, PCP - General 08/05/18 02/03/19 documented as of this encounter
--- OUTSIDE RECORDS SUMMARY | 2022-02-08 01:51 | XMS_ITS | Encounter Summary ---
:1970 Author Organization [facility] Address [address] [place] [address] Care Team Providers Name Role Phone Meredith Rapp MD Primary Care Provider Reason for Visit Reason Comments Other Encounter Details Date Type Department Care Team Description 06/25/2018 Refill [facility] Judson Malloy NP Other Rheumatology & Immunology - [address] [place] [address] 5 [place], [place] [address] [place] [phone] (Wo rk) Social History Tobacco Use Types [...] Sig Dispensed Refills Start Date End Date HUMIRA PEN 40 mg/0.8 INJECT ONE PEN (40 MG) 6 kit 1 07/201810/20/2018 mL pen kit SUBCUTANEOUSLY EVERY OTHER WEEK. REFRIGERATE. documented in this encounter Plan of Treatment Upcoming Encounters Date Type Specialty Care Team Description 02/28/2022 Office Visit Rheumatology Harsh Malloy, CATTLE DEALER 111 [facility], [facility], Level 5 [place], [place] [address] (Wo rk) documented as of this encounter Visit Diagnoses Not on filedocumented in this encounter Discontinued Medications Medication Sig Discontinue Reason Start Date End Date adalimumab (HUMIRA PEN) Inject 1 Pen into Reorder 12/25/2017 06/25/2018 40 mg/0.8 mL pen kit the skin every 14 days. documented as of this encounter Care Teams Monorail Car Operator Relationship Specialty Start Date End Date Meredith Rapp MD PCP - General 08/09/10 08/04/18 [address] [place] [address] documented as of this encounter
--- OUTSIDE RECORDS SUMMARY | 2022-02-08 01:51 | XMS_ITS | Encounter Summary ---
:1970 Author Organization [facility] Address [address] [place] [address] Care Team Providers Name Role Phone Kayleigh Mallory SYSTEMS PROTECTION TECHNICIAN Primary Care Provider Reason for Referral Medication Prior Authorization (Routine) - Closed Specialty Diagnoses / Procedures Referred By Contact Refer red To Contact Pharmacy Diagnoses Psoriatic arthritis ([facility]) Harsh Malloy, SAS ANALYST Ambulatory Pharmacy 111 [facility] [address] [place], [place] [phone] [place] [address], Level 5 [place] [address] Referral ID Status Reason Start Expiration Visits Visits Date Date Requested Authorized [id number] Closed Medication Prior 10/26/2020 1 1 Authorization Question Answer Medication to be Prior Authorized: Reauth Humira 40 mg / 0.4ml PEN subcutaneously every 14 days for psoriatic arthritis Comments The purpose of this consult request is t o inform the scheduling staff that a medication needs to be prior-authorized before it is prescribed and/or administered. Encounter Details Date Type Department Care Team Description 10/26/2020 Orders Only [facility] Rafaela Penn tic arthritis Rheumatology & IMAN At[place] ([facility]) (Pr imary Dx) Immunology - Main [place] mp[facility] [address] [place] [address] Social History Tobacco Use Types Packs/Day Years [...] Office Visit Rheumatology Harsh Malloy NP 111 [facility], [facility] 5 [place], [place] [address] (Wo rk) Scheduled Referrals Name Type Priority Associated Order Schedule Diagnoses AMB MEDICATION PRIOR Outpatient Referral Routine Psoriatic art hritis Ordered: AUTHORIZATION ([facility]) 10/26/2020 documented as of this encounter Visit Diagnoses Diagnosis Psoriatic arthritis (HCC) - Primary Psoriatic arthropathy documented in this encounter Care Teams Outside Sales Advertising Executive Relationship Specialty Start Date End Date Kayleigh Mallory FNP PCP - General 02/04/19 [address] [place] [address] documented as of this encounter
--- OUTSIDE RECORDS SUMMARY | 2022-02-08 01:51 | XMS_ITS | Encounter Summary ---
:1970 Author Organization [facility] Address [address] [place] [address] Care Team Providers Name Role Phone Meredith Rapp MD Primary Care Provider Encounter Details Date Type Department Care Team Description 12/02/2017 Results Only [facility] Jv Mcdonald DO [phone] [place] [address] [place], [place] [address] (Wo rk) Social History Tobacco Use Types [...] a physical, mental, or emotional condition, No 08/06/2017 does this person have difficulty doing errands alone such as visiting a doctor's office or shopping? Cognitive Status Response Date of Assessment Because of a physical, mental, or emotional condition, No 08/06/2017 does this person have serious difficulty concentrating, remembering, or making decisions? documented as of this encounter Plan of Treatment Upcoming Encounters Date Type Specialty Care Team Description 02/28/2022 Office Visit Rheumatology Harsh Malloy, ELBERT 111 [facility], [facility], Level 5 [place], [place] [address] (Wo rk) documented as of this encounter Procedures Procedure Name Priority Date/Time Associated Diagnosis Comme nts SURGICAL PATHOLOGY Routine 12/02/2017 16:51 Resul ts for this EDT procedure are i n the results section. documented in this encounter Results SURGICAL PATHOLOGY (12/02/2017 16:51 EDT) Pathology Report: SURGICAL PATHOLOGY REPORT [facility] Reports generated via electronic interface contain thomas ginal data; LABORATORY however they are lacking the format of the original re port. SERVICES Caution should be taken when reading/interpreting unfo rmatted reports. Name: ? REILLY HUI ? Accession #: ? [id number] ? : ? 1970 (Age: 47 ) ??F ? Collect Date: ? 12/02/2017 ? Location: ? [facility] ? Receive Date: ? 8 ? Provider: JV MCDONALD DO Copy to: MEREDITH RAPP MD ? Final Pathologic Diagnosis: RECTUM, MASS, BIOPSY: - ??Squamocolumnar anorectal mucosa with features of prolapse and hyperplastic/ regenerative change. - ??Findings are consistent with solitary rectal ulcer . - ??Deeper sections examined. Document reviewed and electronically signed by: JULIO ROJO MD Report ??Date: 12/05/2017 09:45 By the signature above, the attending physician certif ies that he/she has personally conducted a gross and/or microscopic examin ation of the described specimens and rendered or confirmed the above diagnosi s. Specimen(s) Received: Low rectal bxs Clinical History: Constipation, rectal mass Gross Description: ? Received in formalin labelled with proper patient identification (initials G, I) and low rectal biopsies are thre e pink-parnell tissues (0.3 x 0.2 x 0.1 cm to 0.4 x 0.2 x 0.2 cm). Entirely submitted in block 1. MICHAEL Low (ASCP) 12/03/2017 7:32 AM End of Report Specimen Performing Organization Address City/State/ZIP Code Phon e Number [facility] [address] [place] [address] SERVICES documented in this encounter Visit Diagnoses Not on filedocumented in this encounter Care Teams Gas Fitter Apprentice Relationship Specialty Start Date End Date Meredith Rapp MD PCP - General 08/09/10 08/04/18 [address] [place] [phone] documented as of this encounter
--- OUTSIDE RECORDS SUMMARY | 2022-02-08 01:51 | XMS_ITS | Encounter Summary ---
:1970 Author Organization [facility] Address [address] [place] [address] Care Team Providers Name Role Phone Unknown, Provider Primary Care Provider Encounter Details Date Type Department Care Team Description 11/25/2018 Ambulatory Pharmacy [facility] Eric Redmond RP H Ambulatory Pharmacy - [facility] [address] [place], [place] [phone] Social History Tobacco Use Types Packs/Day Years [...] Visit Rheumatology Harsh Malloy, ELBERT 111 [facility], Level [address] [place], [place] [address] (Wo rk) documented as of this encounter Visit Diagnoses Not on filedocumented in this encounter Care Teams Die Repairer Forging Relationship Specialty Start Date End Date Unknown, Provider, PCP - General 08/05/18 02/03/19 documented as of this encounter
--- OUTSIDE RECORDS SUMMARY | 2022-02-08 01:51 | XMS_ITS | Encounter Summary ---
:[address] [facility] Address [address] [place] [address] Care Team Providers Name Role Phone Kayleigh Mallory WILFREDO Primary Care Provider Encounter Details Date Type Department Care Team Description 04/14/2020 Ambulatory Pharmacy [facility] Eric Redmond RP H Ambulatory Pharmacy - [facility] [address] [place], [place] [phone] Social History Tobacco Use Types Packs/Day Years [...] Office Visit Rheumatology Harsh Malloy, ELBERT 111 [facility] ivan [facility], Level 5 [place], [place] [address] (Wo rk) documented as of this encounter Visit Diagnoses Not on filedocumented in this encounter Care Teams Water Treatment Plant Mechanic Relationship Specialty Start Date End Date Kayleigh Mallory FNP PCP - General 02/04/19 [address] [place], [place] [address] documented as of this encounter
--- OUTSIDE RECORDS SUMMARY | 2022-02-08 01:51 | XMS_ITS | Encounter Summary ---
:1970 Author Organization [facility] Address [address] [place] [address] Care Team Providers Name Role Phone Kayleigh Mallory WILFREDO Primary Care Provider Encounter Details Date Type Department Care Team Description 06/16/2019 Ambulatory Pharmacy [facility] Eric Redmond RP H Ambulatory Pharmacy - [facility] [address] [place], [place] [phone] Social History Tobacco Use Types Packs/Day Years [...] Office Visit Rheumatology Harsh Malloy, ELBERT 111 [facility], [facility] ivan Ruiz, Level [address] [place], [place] [address] (Wo rk) documented as of this encounter Visit Diagnoses Not on filedocumented in this encounter Care Teams Sugar Cane Planter Machine Operator Relationship Specialty Start Date End Date Kayleigh Mallory FNP PCP - General 02/04/19 [address] [place], [place] [address] documented as of this encounter
--- OUTSIDE RECORDS SUMMARY | 2022-02-08 01:51 | XMS_ITS | Encounter Summary ---
:1970 Author Organization [facility] Address [address] [place] [address] Care Team Providers Name Role Phone Kayleigh Mallory WILFREDO Primary Care Provider Reason for Visit Reason Onset Date Comments Medications Refill 12/11/2020 Encounter Details Date Type Department Care Team Description 12/11/2020 Refill [facility] Judson Malloy NP Medications Refill Rheumatology & Immunology [address], [address] [place], [place] [phone] [place] [address] [phone] (Wo rk) Social History Tobacco Use [...] TAKE 10 TABLETS BY 120 Tablet 0 08/19/20 21 03/01/2021 tablet MOUTH ONCE A WEEK * please get labs JOSIAH documented in this encounter Miscellaneous Notes Telephone Encounter - Talisha Loja RN - 12/14/2020 1031 EDT From: Nina Boothe To: Office of Harsh Malloy APRN Sent: 12/11/2020 16:46 EDT Subject: Medication Renewal Request Refills have been requested for the following medications: methotrexate 2.5 mg tablet [Harsh Malloy APRN] [id number] AT SEC [facility] documented in this encounter Plan of Treatment Upcoming Encounters Date Type Specialty Care Team Description 02/28/2022 Office Visit Rheumatology Harsh Malloy, FIELD ARTILLERY OFFICER 111 [facility], [facility], [facility] 5 [place], [place] [address] (Wo rk) documented as of this encounter Visit Diagnoses Not on filedocumented in this encounter Discontinued Medications Medication Sig Discontinue Reason Start Date End Date methotrexate 2.5 mg TAKE 10 TABLETS BY Reorder 06/19/2020 tablet MOUTH ONCE A WEEK documented as of this encounter Care Teams Intelligence Group Supervisor Relationship Specialty Start Date End Date Kayleigh Mallory FNP PCP - General 02/04/19 [address] [place] [address] documented as of this encounter
--- OUTSIDE RECORDS SUMMARY | 2022-02-08 01:51 | XMS_ITS | Encounter Summary ---
:1970 Author Organization [facility] Address [address] [place] [address] Care Team Providers Name Role Phone Kayleigh Mallory WILFREDO Primary Care Provider Encounter Details Date Type Department Care Team Description 03/29/2020 Ambulatory Pharmacy [facility] Johnathan Medina ie, Ambulatory Pharmacy - [facility] [address] [place] [address] Social History Tobacco Use Types [...] Office Visit Rheumatology Harsh Malloy, ELBERT 111 [facility], [facility] ivan Ruiz, Level [address] [place], [place] [phone] (Wo rk) documented as of this encounter Visit Diagnoses Not on filedocumented in this encounter Care Teams Airplane Patrol Pilot Relationship Specialty Start Date End Date Kayleigh Mallory FNP PCP - General 02/04/19 [address] [place], [place] [address] documented as of this encounter
--- OUTSIDE RECORDS SUMMARY | 2022-02-08 01:51 | XMS_ITS | Encounter Summary ---
:1970 Author Organization [facility] Address [address] [place] [address] Care Team Providers Name Role Phone Kayleigh Mallory STOCK PITCHER Primary Care Provider Encounter Details Date Type Department Care Team Description 06/19/2020 Ambulatory Pharmacy [facility] Eric Redmond RP H Ambulatory Pharmacy - [facility] [address] [place], [place] [phone] Social History Tobacco Use Types Packs/Day Years [...] Office Visit Rheumatology Harsh Malloy, ELBERT 111 [facility], Level [address] [place], [place] [phone] (Wo rk) documented as of this encounter Visit Diagnoses Not on filedocumented in this encounter Care Teams Pharmacy Service Associate Relationship Specialty Start Date End Date Kayleigh Mallory FNP PCP - General 02/04/19 [address] [place], [place] [address] documented as of this encounter
--- OUTSIDE RECORDS SUMMARY | 2022-02-08 01:51 | XMS_ITS | Encounter Summary ---
:1970 Author Organization [facility] Address [address] [place] [address] Care Team Providers Name Role Phone Kayleigh Mallory COLLECTION TELLER Primary Care Provider Encounter Details Date Type Department Care Team Description 11/15/2020 Ambulatory Pharmacy [facility] Eric Redmond RP H Ambulatory Pharmacy - [facility] [address] [place], [place] [phone] Social History Tobacco Use Types Packs/Day Years [...] Office Visit Rheumatology Harsh Malloy, ELBERT 111 [facility] venue [facility], Adair Ruiz, Level [address] [place], [place] [address] (Wo rk) documented as of this encounter Visit Diagnoses Not on filedocumented in this encounter Care Teams Local Owner Operator Truck Driver Relationship Specialty Start Date End Date Kayleigh Mallory FNP PCP - General 02/04/19 [address] [place], [place] [address] documented as of this encounter
--- OUTSIDE RECORDS SUMMARY | 2022-02-08 01:51 | XMS_ITS | Encounter Summary ---
:1970 Author Organization [facility] Address [address] [place] [address] Care Team Providers Name Role Phone Unknown, Provider Primary Care Provider Encounter Details Date Type Department Care Team Description 12/22/2018 Ambulatory Pharmacy [facility] Eric Redmond RP H Ambulatory Pharmacy - [facility] [address] [place], [place] [phone] Social History Tobacco Use Types Packs/Day Years [...] Rheumatology Harsh Malloy, ELBERT 111 [facility], Level [address] [place], [place] [phone] (Wo rk) documented as of this encounter Visit Diagnoses Not on filedocumented in this encounter Care Teams Workforce Manager Relationship Specialty Start Date End Date Unknown, Provider, PCP - General 08/05/18 02/03/19 documented as of this encounter
--- OUTSIDE RECORDS SUMMARY | 2022-02-08 01:51 | XMS_ITS | Encounter Summary ---
:1970 Author Organization [facility] Address [address] [place] [address] Care Team Providers Name Role Phone Kayleigh Mallory WILFREDO Primary Care Provider Encounter Details Date Type Department Care Team Description 02/14/2020 Ambulatory Pharmacy [facility] Eric Redmond RP H Ambulatory Pharmacy - [facility] [address] [place], [place] [phone] Social History Tobacco Use Types Packs/Day Years [...] Office Visit Rheumatology Harsh Malloy, ELBERT 111 [facility], [facility] ivan Ruiz, Level [address] [place], [place] [address] (Wo rk) documented as of this encounter Visit Diagnoses Not on filedocumented in this encounter Care Teams Air Liaison And Special Staff Relationship Specialty Start Date End Date Kayleigh Mallory FNP PCP - General 02/04/19 [address] [place], [place] [address] documented as of this encounter
--- OUTSIDE RECORDS SUMMARY | 2022-02-08 01:51 | XMS_ITS | Encounter Summary ---
:1970 Author Organization [facility] Address [address] [place] [address] Care Team Providers Name Role Phone Kayleigh Mallory WILFREDO Primary Care Provider Reason for Visit Reason Onset Date Comments Other Medications Refill 12/17/2020 Medications Refill 12/19/2020 Encounter Details Date Type Department Care Team Description 12/09/2020 Refill [facility] Harsh Malloy, Ot her; Medications Rheumatology & PARTS FABRICATOR Refill; Medications Immunology - Main Ca mpus 111 [facility] Refill 111 [place], [place] [phone] [place] [address], [place] [phone] (Wo rk) Social History Tobacco Use Types [...] documented as of this encounter Miscellaneous Notes Addendum Note - Kim Menjivar RN - 12/19/2020 1001 EDT Addended by: KIM MENJIVAR on: 12/19/2020 10:01 Modules accepted: Orders elephone Encounter - China Penn RN - 12/17/2020 2232 EDT From: Nina Boothe Sent: 12/14/2020 11:07 EDT To: Rheumatology Nurse Barber I am scheduled for Friday AM....that's the soonest that they can get me in. Last I spoke to Harsh,I was on a 3-4 month schedule so it would be just about 4 months now. If that has changed, please let me know and I will adjust my calendar. Thank you for your assistance. documented in this encounter Plan of Treatment Upcoming Encounters Date Type Specialty Care Team Description 02/28/2022 Office Visit Rheumatology Harsh Malloy, ELBERT 111 [facility], [facility], Level [address] [place], [place] [phone] (Wo rk) documented as of this encounter Visit Diagnoses Diagnosis Psoriatic arthritis (HCC) - Primary Psoriatic arthropathy Encounter for long-term (current) use of medications Encounter for long-term (current) use of other medications Long-term use of high-risk medication documented in this encounter Care Teams Field Contact Person Relationship Specialty Start Date End Date Kayleigh Mallory FNP PCP - General 02/04/19 [address] [place], [place] [address] documented as of this encounter
--- OUTSIDE RECORDS SUMMARY | 2022-02-08 01:51 | XMS_ITS | Encounter Summary ---
:[address] [facility] Address [address] [place] [address] Care Team Providers Name Role Phone Meredith Rapp MD Primary Care Provider Reason for Visit Reason Onset Date Comments Medication Questions 05/20/2017 Humira Encounter Details Date Type Department Care Team Description 05/20/2017 Telephone [facility] Harsh Malloy, dication Questions Rheumatology & ADVERTISING DISPLAY ROTATOR (Humira) Immunology - Main [address] [place] [address] [address] [place], [place] [phone] [place] [address], [facility] [place] [address] (Wo rk) Social History Tobacco [...] a physical, mental, or emotional condition, No 05/14/2017 does this person have difficulty doing errands alone such as visiting a doctor's office or shopping? Cognitive Status Response Date of Assessment Because of a physical, mental, or emotional condition, No 05/14/2017 does this person have serious difficulty concentrating, remembering, or making decisions? documented as of this encounter Miscellaneous Notes Telephone Encounter - Nasreen Rankin RN - 05/21/2017 0834 EST Clarified with Pharmacy, Humira 40 mg (1 Pen) every two weeks. elephone Encounter - Silke Toro V. - 05/20/2017 1559 EST Reason for Call: Medication Questions (Humira) Summary/Symptoms: RX is missing how many pens to inject for Humira. Please call to thelma Toro 05/20/2017 15:59 documented in this encounter Plan of Treatment Upcoming Encounters Date Type Specialty Care Team Description 02/28/2022 Office Visit Rheumatology Harsh Malloy, ADVERTISING DISPLAY ROTATOR 111 [facility], [facility], Level [address] [place], [place] [address] (Wo rk) documented as of this encounter Visit Diagnoses Not on filedocumented in this encounter Care Teams Street Railway Line Installer Relationship Specialty Start Date End Date Meredith Rapp MD PCP - General 08/09/10 08/04/18 [address] [place] [address] documented as of this encounter
--- OUTSIDE RECORDS SUMMARY | 2022-02-08 01:51 | XMS_ITS | Encounter Summary ---
:1970 Author Organization [facility] Address [address] [place] [address] Care Team Providers Name Role Phone Kayleigh Mallory SUPERVISOR BLASTING Primary Care Provider Reason for Visit Reason Comments Follow-up Encounter Details Date Type Department Care Team Description 08/12/2019 Telemedicine [facility] Harsh Malloy, Ps oriatic arthropathy ([facility]) (Primary Dx); Rheumatology & FINE GRADE BULLDOZER OPERATOR Encounter for long-term (current) use of medications Immunology - Main [address] [place] [address] [address] [place] [address] [place], [facility] [place] [address] (Wo rk) Social History Tobacco [...] making decisions? documented as of this encounter Patient Instructions Patient InstructionsMerHarsh milian APRN - 08/12/2019 13:00 EDT Please discuss FDA warning with PCP regarding singular Ok to skip 07/2019 labs d/t covid 19 and please try for September 2019 increase methotrexate to 10 tabs orally weekly, if having side effects, oral or nasal sores, GI upset, feeling unwell, Please call the clinic to increase folic acid. If still having 1-2 days of mild joint swelling after3 months on 10 tabs of methotrexate please call the office. F/u 6 months documented in this encounter Ordered Prescriptions Prescription Sig Dispensed Refills Start Date End Date methotrexate 2.5 mg tablet Take 10 Tabs by 120 Tab 1 07/2703/22/2020 mouth once a week. Labs every 3-4 months (last drawn 04/03/19) documented in this encounter Progress Notes Harsh Malloy APRN - 08/12/2019 1300 EDT Images from the original note were not included. Patient ID: Nina Boothe is a 49 y.o. y.o. female Subjective: Chief Complaint: No chief complaint on file. HPI: Here for follow up of psoriatic arthritis on enbrel and methotrexate. Last seen in clinic on 08/06/2017 and was MICHAEL lu for humira from enbrel. 02/02/2018 01/13/2018 Sphyncerotomy - - right hip started clicking intermittently after the procedure feels like its in the joint. Has just been cleared for activity. Flu vaccine 08/06/2018 Active URI x 2 weeks with cough, starting to get better- has been using theraflu, held 1 dose of humira since start of URI 02/05/2019 Did a spartan race last week Changes since last visit doing well The concept of ???Telemedicine?? has been described to the patient.? Patient has been informed of the anticipated benefits and possible risks.? Patient understands the information provided regarding telemedicine, has had the opportunity to ask questions about this information, and all questions have been answered to patient???s satisfaction. Patient consents for the use of telemedicine in his/her medical care and authorizes the transmission of any relevant medical information to providers and theirstaff involved in patient???s medical or mental health care. TELEMEDICINE VIDEO VISIT Today's visit was provided through telemedicine video conferencing: The location of the patient : Workplace The location of the provider: Office The following staff and their role did participate in today's encounter visit: Harsh Malloy, WEIGH MACHINE OPERATOR No psoriasis Intermittent joint flares - dependent on what she is doing, maybe 1 day per month with increased joint pain Denies??any other joint pains or swelling. ?? AM stiffness: ??2-3 Physical activity: ??not sedentary, getting 10,000 steps per day plus work outs before and after work including core exercises. REVIEW OF SYSTEMS: Yes No Yes No Fever X Joint pain x Weight gain or loss pounds (lbs) Duration of AM joint stiffness hours / min Eye pain or dryness X Numbness/tingling X Mouth or nose sores X Heart burn / Nausea X Chest pain X Diarrhea X Shortness of Breath X Blood in stool X Cough X Burning on urination X Skin rash X Hand/Foot color change in cold X Patient Active Problem List Diagnosis ??? Psoriasis with arthropathy (HCC-CMS) ??? Encounter for long-term (current) use of medications ??? Hypertensive disorder ??? Environmental allergies ??? Psoriasis ??? Psoriasis with arthropathy (HCC-CMS) Past Medical History: Diagnosis Date ??? Abnormal Pap smear in remote past ??? Allergy ??? Arthritis ??? Hypertension ??? Hyperthyroidism history of this, now resolved ??? Migraine ??? Psoriasis Past Surgical History: Procedure Laterality Date ??? KNEE ARTHROSCOPY bilateral knees ??? TUBAL LIGATION ??? TUBAL LIGATION Allergies Allergen Reactions ??? Asa [Aspirin] Hives Current Outpatient Medications: acetaminophen (TYLENOL) 500 mg tablet adalimumab (HUMIRA,CF, PEN) 40 mg/0.4 mL pen cetirizine (ZYRTEC) 10 mg tablet DOCUSATE SODIUM (COLACE ORAL) fluocinonide (LIDEX) 0.05 % ointment FLUTICASONE PROPIONATE (FLUTICASONE INHL) folic acid (FOLVITE) 1 mg tablet lisinopril (PRINIVIL, ZESTRIL) 10 mg tablet loratadine-pseudoephedrine (CLARITIN-D 24 HOUR) 10-240 mg per tablet methotrexate 2.5 mg tablet montelukast (SINGULAIR) 10 mg tablet Multivitamins with Minerals Tab oxybutynin (DITROPAN) 5 mg tablet No current facility-administered medications for this visit. ROS - SEE HPI I reviewed the 10 point ROS performed by the nurse which is as documented in Prism. Objective: There were no vitals taken for this visit. PHYSICAL EXAM: ?? Ax O x 3 No signs of respiratory distress No hand swelling Able to move from sitting to standing without difficulty LABS: 11/07/2017 CMP normal CBC normal except RBC 3.92 H/H 11.9/35.4 05/14/2017 CMP normal Cr. 0.89 CBC normal RAPID3 Summary Functional Status: Pain Tolerance: Global Estimate: Score: Interpretation: ASSESSMENT: 1. 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 States 1-2 days a month of mild joint swelling and increased joint pain either hands or knees. Will increase MTX To 10 tabs, continue humira. If not improved in 3 months would need to review medication management. Could add SSZ 2. No psoriasis 3. Patient is currently on biologic therapy. Patient should receive either the PPSV23 or PCV13 vaccine, if indicated based on the CDC recommendations, either at the rheumatology office or PCP office. Up to date on pneumonia, flu and shingrix 4.Ok to skip 07/2019 labs d/t covid 19 and please try for September 2019 5. New boxed warning on singular- recommend discussion with PCP Encounter Diagnoses Name Primary? Psoriatic arthropathy (HCC-CMS) Yes ??? Encounter for long-term (current) use of medications PLAN: Please discuss FDA warning with PCP regarding singular Ok to skip 07/2019 labs d/t covid 19 and please try for September 2019 increase methotrexate to 10 tabs orally weekly, if having side effects, oral or nasal sores, GI upset, feeling unwell, Please call the clinic to increase folic acid. If still having 1-2 days of mild joint swelling after3 months on 10 tabs of methotrexate please call the office. F/u 6 months 1. Psoriatic arthropathy (HCC-CMS) 2. Encounter for long-term (current) use of medications No orders of the defined types were placed in this encounter. Barriers to learning identified: No Patient verbalizes understanding and agrees with plan Yes I was directly supervised by: Dr. Gray . They were present in clinic and available for consult if needed. Harsh Malloy APRN 08/12/2019 8:27 I spent 30 minutes in [id number] via zoom with pt. documented in this encounter Plan of Treatment Upcoming Encounters Date Type Specialty Care Team Description 02/28/2022 Office Visit Rheumatology Harsh Malloy, FINE GRADE BULLDOZER OPERATOR [address] [facility], [facility], [address] [place], [place] [address] (Wo rk) documented as of this encounter Visit Diagnoses Diagnosis Psoriatic arthropathy (HCC) - Primary Psoriatic arthropathy Encounter for long-term (current) use of medications Encounter for long-term (current) use of other medications documented in this encounter Discontinued Medications Medication Sig Discontinue Reason Start Date End Date methotrexate 2.5 mg Take 9 Tabs by Reorder 04/26/20192019 tablet mouth once a week. Labs every 3-4 months (last drawn 04/03/19) documented as of this encounter Care Teams Motorcycle Assembler Relationship Specialty Start Date End Date Kayleigh Mallory FNP PCP - General 02/04/19 [address] [place], [place] [address] documented as of this encounter
--- OUTSIDE RECORDS SUMMARY | 2022-02-08 01:51 | XMS_ITS | Encounter Summary ---
:1970 Author Organization [facility] Address [address] [place] [address] Care Team Providers Name Role Phone Meredith Rapp MD Primary Care Provider Reason for Visit Reason Onset Date Comments Results 07/13/2018 Encounter Details Date Type Department Care Team Description 07/13/2018 Telephone [facility] Darrian Hernandez MD Results Rheumatology & Immunology - [address] [place] [address], [address], [address] [place], [place] [id number] [place] [phone] (Wo rk) Social History Tobacco Use [...] this encounter Miscellaneous Notes Telephone Encounter - Etelvina Hernandez MD, MD - 07/13/2018 0909 EDT New labs from July 11 normal except creat 1.06 (nl less than 1.02) and GFR 55.1. Left message to stay hydrated, recheck labs within a month to see if this is an erroneous or temporary result, and advised to make sure to avoid NSAIDs/aspirin. documented in this encounter Plan of Treatment Upcoming Encounters Date Type Specialty Care Team Description 02/28/2022 Office Visit Rheumatology Harsh Malloy, SOAPING DEPARTMENT SUPERVISOR [facility], [facility], [address] [place], [place] [address] (Wo rk) documented as of this encounter Visit Diagnoses Not on filedocumented in this encounter Care Teams Flume Ride Operator Relationship Specialty Start Date End Date Meredith Rapp MD PCP - General 08/09/10 08/04/18 [address] [place] [address] documented as of this encounter
--- OUTSIDE RECORDS SUMMARY | 2022-02-08 01:51 | XMS_ITS | Encounter Summary ---
:1970 Author Organization [facility] Address [address] [place] [address] Care Team Providers Name Role Phone Kayleigh Mallory WILFREDO Primary Care Provider Reason for Visit Reason Onset Date Comments Medications Refill 10/23/2020 Encounter Details Date Type Department Care Team Description 10/23/2020 Refill [facility] Judson Malloy NP Medications Refill Rheumatology & Immunology [address], [address] [place], [place] [address] [place] [address] [phone] (Wo rk) Social History Tobacco Use [...] Take 1 Tablet by 90 Tablet 3 09/2708/28/2021 tablet mouth daily. documented in this encounter Miscellaneous Notes Telephone Encounter - Kim Menjivar RN - 10/23/2020 1034 EDT Requested Prescriptions Pending Prescriptions Disp Refills ??? folic acid (FOLVITE) 1 mg tablet 90 Tablet 3 Sig: Take 1 Tablet by mouth daily. Pharmacy: [facility] Last Refill Date: 08/24/20 Last Visit Date: 08/24/20 Next Non-Acute Visit Date Scheduled with Care Team: 03/01/2021 KIM MENJIVAR RN 10/23/2020 10:34 documented in this encounter Plan of Treatment Upcoming Encounters Date Type Specialty Care Team Description 02/28/2022 Office Visit Rheumatology Harsh Malloy, GAS DISPATCHER [address] [facility], [address] [place], [place] [address] (Wo rk) documented as of this encounter Visit Diagnoses Not on filedocumented in this encounter Discontinued Medications Medication Sig Discontinue Reason Start Date End Date folic acid (FOLVITE) 1 mg Take 1 Tab by mouth Reorder 08/25/19 21 10/23/2020 tablet daily. documented as of this encounter Care Teams Flight Attendant Relationship Specialty Start Date End Date Kayleigh Mallory FNP PCP - General 02/04/19 [address] [place] [address] documented as of this encounter
--- OUTSIDE RECORDS SUMMARY | 2022-02-08 01:51 | XMS_ITS | Encounter Summary ---
:1970 Author Organization [facility] Address [address] [place] [address] Care Team Providers Name Role Phone Kayleigh Mallory GREEN LUMBER GRADER Primary Care Provider Encounter Details Date Type Department Care Team Description 05/15/2020 Ambulatory Pharmacy [facility] Eric Redmond RP H Ambulatory Pharmacy - [facility] [address] [place], [place] [id number] Social History Tobacco Use Types Packs/Day Years [...] Office Visit Rheumatology Harsh Malloy, ELBERT [address] [facility] venue [facility], [address], [address] [place], [place] [address] (Wo rk) documented as of this encounter Visit Diagnoses Not on filedocumented in this encounter Care Teams General Office Clerk Relationship Specialty Start Date End Date Kayleigh Mallory FNP PCP - General 02/04/19 [address] [place], [place] [phone] documented as of this encounter
--- OUTSIDE RECORDS SUMMARY | 2022-02-08 01:51 | XMS_ITS | Encounter Summary ---
:1970 Author Organization [facility] Address [address] [place] [address] Care Team Providers Name Role Phone Kayleigh Mallory DATA STEWARD Primary Care Provider Encounter Details Date Type Department Care Team Description 08/10/2020 Abstract [facility] Judson Malloy NP Rheumatology & Immunology - [address] [place] [id number] [place] [phone] (Wo rk) Social History Tobacco Use [...] 02/28/2022 Office Visit Rheumatology Harsh Malloy NP [address] [place], [place] [address], [place] [address] (Wo rk) documented as of this encounter Procedures Procedure Name Priority Date/Time Associated Comments Diagnosis COMPLETE BLOOD COUNT Routine 08/10/2020 7:32 Resu lts for this AND DIFFERENTIAL EDT procedure a re in the results section. COMPREHENSIVE Routine 08/10/2020 7:32 Results for this METABOLIC PANEL (CMP) EDT proced ure are in the results section. documented in this encounter Results COMPLETE BLOOD COUNT AND DIFFERENTIAL (08/10/2020 7:32 EDT) Pathologist Sig nature WBC, External 6.48 [facility] RBC, External 4.67 [facility] Hemoglobin, External 14.4 [facility] HCT, External 43.4 [facility] MCV, External 92.9 [facility] MCH, External 30.8 [facility] MCHC, External 33.2 [facility] PLT, External 337 [facility] RDW-CV, External 13.0 [facility] Neutrophils, External 60 [facility] Lymphocytes, External 27.6 [facility] Monocytes, External 8.2 [facility] Eosinophils, External 3.1 [facility] Basophils, External 0.8 [facility] ABS Neutrophils, 3.89 [facility] ABS Lymphs, External 1.79 [facility] ABS Monocytes, 0.53 [facility] ABS Eosinophils, 0.20 [facility] ABS Basophils, 0.05 [facility] Specimen Blood - Venous blood (substance) Performing Organization Address City/State/ZIP Code Phon e Number [facility] COMPREHENSIVE METABOLIC PANEL (CMP) (08/10/2020 7:32 EDT) GFR, Calculated, 52.16 [facility] Glucose, Serum, 119Comment: [facility] Albumin, External 4.1 [facility] Total Alkaline [facility] External ALT, External 36 [facility] AST, External 27 [facility] BUN, External 13 [facility] Calculated Calcium, [facility] Calcium, External 8.8 [facility] Chloride, External 103 [facility] CO2, External 27.3 [facility] Creatinine, External 1.1Comment: [facility] Fasting?, External [facility] Potassium, External 4.0 [facility] Sodium, External 141 [facility] Total Protein, 7.6 [facility] Bilirubin, Total, 0.7 [facility] Specimen Blood - Venous blood (substance) Performing Organization Address City/State/ZIP Code Phon e Number [facility] documented in this encounter Visit Diagnoses Not on filedocumented in this encounter Care Teams Disbursing Officer Relationship Specialty Start Date End Date Kayleigh Mallory FNP PCP - General 02/04/19 [address] [place], [place] [address] documented as of this encounter
--- OUTSIDE RECORDS SUMMARY | 2022-02-08 01:51 | XMS_ITS | Encounter Summary ---
:1970 Author Organization [facility] Address [address] [place] [address] Care Team Providers Name Role Phone Unknown, Provider Primary Care Provider Reason for Visit Reason Comments Joint Pain right knee has not taking me d due to a cold for 2 weeks Encounter Details Date Type Department Care Team Description 08/06/2018 Office Visit [facility] Harsh Malloy Ps oriasis with arthropathy ([facility]) (Primary Dx); Rheumatology & FIREBREAK CUTTER Encounter for long-term (current) use of medications; Immunology - [address] Viral up per respiratory tract infection [address] [place] [address] [address], [place] [address] (Wo rk) Social History Tobacco Use Types Packs/Day Years Used Date Never Smoker Smokeless Tobacco: Never Used Alcohol Use Standard Drinks/Week Comments Yes 0 (1 standard drink = 0.6 oz pure alcoho l) About 2 beers a month if that Sex Assigned at Date Recorded Female 06/29/2019 10:58 EST documented as of this encounter Last Filed Vital Signs Vital Sign Reading Time Taken Comments Blood Pressure 140/81 08/06/2018 1059 EDT Pulse 59 08/06/2018 1059 EDT Temperature - - Respiratory Rate - - Oxygen Saturation - - Inhaled Oxygen Concentration - - Weight 67.1 kg (148 lb) 08/06/2018 1059 EDT Height 164.5 cm (5' 4.76) 08/06/2018 1059 EDT Body Mass Index 24.81 08/06/2018 1059 EDT documented in this encounter Functional Status Functional Status Response [...] this encounter Patient Instructions Patient InstructionsMerHarsh milian Aprn, APRN - 08/06/2018 11:00 EDT 1. Please have PCP clinic see you next week as URI should continue to improve, you do have some finecrackles right lower lobe 2. Continue to hold humira until upper respiratory infection resolved, if need antibiotics can hold methotrexate if not improving 3. Continue labs every 3-4 months 4. Recommend shingix when well and when available 5. F/u 6 months Vaccine Information Statement: Shingrix Recombinant Zoster (Shingles) Vaccine, RZV: What you need to know Many Vaccine Information Statements are available in [place]ian and other languages. See www.immunize.org/vis Hojas de Informaci??n Sobre Vacunas est??n disponibles en Espa??ol y en muchos otros idiomas. Visitehttp://www.immunize.org/vis 1. Why get vaccinated? Shingles (also called herpes zoster, or just zoster) is a painful skin rash, often with blisters. Shingles is caused by the varicella zoster virus, the same virus that causes chickenpox. After you havechickenpox, the virus stays in your body and can cause shingles later in life. You can???t catch shingles from another person. However, a person who has never had chickenpox (or chickenpox vaccine) could get chickenpox from someone with shingles. A shingles rash usually appears on one side of the face or body and heals within 2 to 4 weeks. Its main symptom is pain, which can be severe. Other symptoms can include fever, headache, chills, and upset stomach. Very rarely, a shingles infection can lead to pneumonia, hearing problems, blindness, brain inflammation (encephalitis), or . For about 1 person in 5, severe pain can continue even long after the rash has cleared up. This long-lasting pain is called post-herpetic neuralgia (PHN). Shingles is far more common in people 50 years of age and older than in younger people, and the riskincreases with age. It is also more common in people whose immune system is weakened because of a disease such as cancer, or by drugs such as steroids or chemotherapy. At least 1 million people a year in the [place] get shingles. 2. Shingles vaccine (recombinant) Recombinant shingles vaccine was approved by FDA in 2017 for the prevention of shingles. In clinicaltrials, it was more than 90% effective in preventing shingles. It can also reduce the likelihood of PHN. Two doses, 2 to 6 months apart, are recommended for adults 50 and older. This vaccine is also recommended for people who have already gotten the live shingles vaccine (Zostavax). There is no live virus in this vaccine. 3. Some people should not get this vaccine Tell your vaccine provider if you: ??? Have any severe, life-threatening allergies. A person who has ever had a life-threatening allergic reaction after a dose of recombinant shingles vaccine, or has a severe allergy to any component ofthis vaccine, may be advised not to be vaccinated. Ask your health care provider if you want information about vaccine components. ??? Are or . There is not much information about use of recombinant shingles vaccine in or nursing women. Your healthcare provider might recommend delaying vaccination. ??? Are not feeling well. If you have a mild illness, such as a cold, you can probably get the vaccine today. If you are moderately or severely ill, you should probably wait until you recover. Your doctor can advise you. 4. Risks of a vaccine reaction With any medicine, including vaccines, there is a chance of reactions. After recombinant shingles vaccination, a person might experience: ??? Pain, redness, soreness, or swelling at the site of the injection ??? Headache, muscle aches, fever, shivering, fatigue In clinical trials, most people got a sore arm with mild or moderate pain after vaccination, and some also had redness and swelling where they got the shot. Some people felt tired, had muscle pain, a headache, shivering, fever, stomach pain, or nausea. About 1 out of 6 people who got recombinant zoster vaccine experienced side effects that prevented them from doing regular activities. Symptoms went away on their own in about 2 to 3 days. Side effects were more common in younger people. You should still get the second dose of recombinant zoster vaccine even if you had one of these reactions after the first dose. Other things that could happen after this vaccine: ??? People sometimes faint after medical procedures, including vaccination. Sitting or lying down for about 15 minutes can help prevent fainting and injuries caused by a fall. Tell your provider if youfeel dizzy or have vision changes or ringing in the ears. ??? Some people get shoulder pain that can be more severe and longer-lasting than routine soreness that can follow injections. This happens very rarely. ??? Any medication can cause a severe allergic reaction. Such reactions to a vaccine are estimated at about 1 in a million doses, and would happen within a few minutes to a few hours after the vaccination. As with any medicine, there is a very remote chance of a vaccine causing a serious injury or . The safety of vaccines is always being monitored. For more information, visit: www.cdc.gov/vaccinesafety/ 5. What if there is a serious problem? What should I look for? Look for anything that concerns you, such as signs of a severe allergic reaction, very high fever, or unusual behavior. Signs of a severe allergic reaction can include hives, swelling of the face and throat, difficulty breathing, a fast heartbeat, dizziness, and weakness. These would usually start a few minutes to a fewhours after the vaccination. What should I do? If you think it is a severe allergic reaction or other emergency that can???t wait, call or get to the nearest hospital. Otherwise, call your health care provider. Afterward, the reaction should be reported to the Vaccine Adverse Event Reporting System (VAERS). Your doctor should file this report, or you can do it yourself through the VAERS website at www.vaers.[facility].gov, or by calling . VAERS does not give medical advice. 6. How can I learn more? Ask your health care provider. He or she can give you the vaccine package insert or suggest other sources of information. ??? Call your local or state health department. ??? Contact the Centers for Disease Control and Prevention ([facility]): - Call (2-428-FUS-INFO) or - Visit [facility]???s website at www.cdc.gov/vaccines Vaccine Information Statement Recombinant Zoster Vaccine 06/09/2017 Department of Health and Human Services Centers for Disease Control and Prevention Office Use Only documented in this encounter Progress Notes Harsh Malloy Aprn, APRN - 08/06/2018 1100 EDT Images from the original note were not included. Patient ID: Nina Boothe is a 48 y.o. y.o. female Subjective: Chief Complaint: Joint Pain (right knee has not taking med due to a cold for 2 weeks) HPI: Here for follow up of psoriatic arthritis on enbrel and methotrexate. Last seen in clinic on 08/06/2017 and was MICHAEL lu for humira from enbrel. 02/02/2018 01/13/2018 Sphyncerotomy - - right hip started clicking intermittently after the procedure feels like its in the joint. Has just been cleared for activity. Flu vaccine Changes since last visit Active URI x 2 weeks with cough, starting to get better- has been using theraflu, held 1 dose of humira since start of URI Denies??any other joint pains or swelling. ?? AM stiffness: ??2-3 Physical activity: ??not sedentary, getting 10,000 steps per day plus work outs before and after work including core exercises. Patient Active Problem List Diagnosis ??? Psoriasis [...] Outpatient Medications: acetaminophen (TYLENOL) 500 mg tablet cetirizine (ZYRTEC) 10 mg tablet DOCUSATE SODIUM (COLACE ORAL) fluocinonide (LIDEX) 0.05 % ointment FLUTICASONE PROPIONATE (FLUTICASONE INHL) folic acid (FOLVITE) 1 mg tablet HUMIRA PEN 40 mg/0.8 mL pen kit lisinopril (PRINIVIL, ZESTRIL) 10 mg tablet loratadine-pseudoephedrine (CLARITIN-D 24 HOUR) 10-240 mg per tablet methotrexate 2.5 mg tablet montelukast (SINGULAIR) 10 mg tablet Multivitamins with Minerals Tab oxybutynin (DITROPAN) 5 mg tablet No current facility-administered medications for this visit. ROS - SEE HPI I reviewed the 10 point ROS performed by the nurse which is as documented in Prism. Objective: BP 140/81 Pulse 59 Ht 164.5 cm (64.76) Wt 67.1 kg (148 lb) BMI 24.81 kg/m?? PHYSICAL EXAM: ?? General: No acute distress. Alert, fully oriented, pleasant, conversant. HEENT: Conjunctivae/corneas clear. Pupils equal, Sclerae anicteric. Mucus membranes moist; oropharynx clear. Neck supple anterior lymphadenopathy , symmetrical, trachea midline Lungs: Clear to auscultation bilaterally. Heart: Regular rate and rhythm, S1, S2 present, no murmur Abdomen: Soft, non-tender, non-distended. Extremities: Extremities without cyanosis or edema. Skin: fine crackles RLL Musculoskeletal: Spine: No significant tenderness. Normal range of motion of the spine. Shoulder/Elbow: No significant tenderness, swelling, effusions, erythema or warmth is present. Appropriate range of motion present. Wrist/Hand: No significant tenderness, swelling, effusions, erythema or warmth is present. Appropriate range of motion present. Hips/Knee: right hip catch with flexion, abduction, adduction. No significant tenderness, or erythema or warmth is present. Appropriate range of motion present. Ankle/Foot: No significant tenderness, swelling, effusions, erythema or warmth is present. Appropriate range of motion present. ?? LABS: 11/07/2017 CMP normal CBC normal except RBC 3.92 H/H 11.9/35.4 05/14/2017 CMP normal Cr. 0.89 CBC normal RAPID3 Summary Functional Status: 0 Pain Tolerance: 1.5 Global Estimate: 2.5 Score: 4 Interpretation: Low ASSESSMENT: 1. 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 Right hip clicking started after 01/13/2018 Sphincterectomy. Clicks with flexion, abduction and adduction. Right hip doing well . Has URI x 2 weeks, thinks it is starting to improve has held humira for 1 dose. Fine crackles RLL- recommend be seen by PCP early next week. 2. No psoriasis 3. Patient is currently on biologic therapy. Patient should receive either the PPSV23 or PCV13 vaccine, if indicated based on the CDC recommendations, either at the rheumatology office or PCP office. Up to date on pneumonia 4. Continue labs every 3-4 months 5. Recommend shingrix when available Encounter Diagnoses Name Primary? Psoriasis with arthropathy ([facility]) Yes ??? Encounter for long-term (current) use of medications PLAN: 1. Please have PCP clinic see you next week as URI should continue to improve, you do have some finecrackles right lower lobe 2. Continue to hold humira until upper respiratory infection resolved, if need antibiotics can hold methotrexate if not improving 3. Continue labs every 3-4 months 4. Recommend shingix when well and when available 5. F/u 6 months 1. Psoriasis with arthropathy ([facility]) 2. Encounter for long-term (current) use of medications No orders of the defined types were placed in this encounter. Barriers to learning identified: No Patient verbalizes understanding and agrees with plan Yes I was directly supervised by: Dr. Hernandez . They were present in clinic and available for consult if needed. Harsh Malloy APRN 08/06/2018 17:33 Attestation statement: Supervising Physician Etelvina Hernandez MD China Gurrola - 08/06/2018 1100 EDT REVIEW OF SYSTEMS: Yes No Yes No Fever X Joint pain x Weight gain or loss pounds (lbs) Duration of AM joint stiffness varies Eye pain or dryness X Numbness/tingling X Mouth or nose sores X Heart burn / Nausea X Chest pain X Diarrhea X Shortness of Breath X Blood in stool X Cough x Burning on urination X Skin rash X Hand/Foot color change in cold X Are our immunization records accurate per patient report? (i.e. influenza, pneumococcal, shingles) Yes No If no, note change(s) below and update record yes documented in this encounter Plan of Treatment Upcoming Encounters Date Type Specialty Care Team Description 02/28/2022 Office Visit Rheumatology Harsh Malloy, ELBERT [address] [facility], [facility] [address] [place], [place] [phone] (Wo rk) documented as of this encounter Visit Diagnoses Diagnosis Psoriasis with arthropathy (HCC) - Prima ry Psoriatic arthropathy Encounter for long-term (current) use of medications Encounter for long-term (current) use of other medications Viral upper respiratory tract infection Acute upper respiratory infections of un specified site documented in this encounter Discontinued Medications Medication Sig Discontinue Reason Start Date End Date folic acid (FOLVITE) 1 TAKE 1 TABLET DAILY Duplicate Therapy 201808/06/2018 mg tablet documented as of this encounter Care Teams Ground Worker Relationship Specialty Start Date End Date Unknown, Provider, PCP - General 08/05/18 02/03/19 documented as of this encounter
--- OUTSIDE RECORDS SUMMARY | 2022-02-08 01:51 | XMS_ITS | Encounter Summary ---
:1970 Author Organization [facility] Address [address] [place] [address] Care Team Providers Name Role Phone Kayleigh Mallory PUBLISHING EDITOR Primary Care Provider Encounter Details Date Type Department Care Team Description 08/21/2020 Ambulatory Pharmacy [facility] Eric Redmond RP H Ambulatory Pharmacy - [facility] [address], [place] [id number] Social History Tobacco Use Types Packs/Day Years [...] Office Visit Rheumatology Harsh Malloy, ELBERT [address] [facility] venue [facility], [address], [address] [place], [place] [address] (Wo rk) documented as of this encounter Visit Diagnoses Not on filedocumented in this encounter Care Teams Harness Placer Relationship Specialty Start Date End Date Kayleigh Mallory FNP PCP - General 02/04/19 [address] [place], [place] [id number] documented as of this encounter
--- OUTSIDE RECORDS SUMMARY | 2022-02-08 01:51 | XMS_ITS | Encounter Summary ---
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 Encounter for long-term (current) use of medications Immunology - Main [address] [facility] [address] [place], [place] [id number] [place] [address], [place] [address] (Wo rk) Social History Tobacco [...] Sign Reading Time Taken Comments Blood Pressure 120/68 08/06/2017 1134 EDT Pulse 60 08/06/2017 1134 EDT Temperature - - Respiratory Rate - - Oxygen Saturation - - Inhaled Oxygen Concentration - - Weight - - Height - - Body Mass Index - - documented in this encounter Functional Status Functional [...] as of this encounter Patient Instructions Patient InstructionsHarsh Malloy NP - 08/06/2017 11:30 EDT 1. Continue current meds. 2. Given new external lab orders 3. Can use ice or topical hydrocortisone or benadryl for injection site reactions. 4. F/u 6 months documented in this encounter Progress Notes Harsh Malloy NP - 08/06/2017 1130 EDT Patient ID: Nina Boothe is a 47 y.o. y.o. female Subjective: Chief Complaint: Follow-up (has been doing well on the Humira ) HPI: Here for follow up of psoriatic arthritis on enebrel and methotrexate. Last seen in clinic on 05/14/2017 and was MICHAEL lu for humira from enbrel. Changes since last visit: Doing better since switching to Humira which was started 2017 - delayed due to insurance. Topical psoriasis doing well. Treated with topical steroids prn Denies injection site reactions, chest pain, SOB, fever, infection, oral or nasal sores, cough, changes to bowel or bladder, GI distress. Denies any other joint pains or swelling. AM stiffness: 2-3 Physical activity: not sedentary, getting 10,000 steps per day plus [...] Reactions ??? Asa [Aspirin] Hives Current Outpatient Prescriptions: acetaminophen (TYLENOL) 500 mg tablet adalimumab (HUMIRA PEN) 40 mg/0.8 mL pen kit cetirizine (ZYRTEC) 10 mg tablet DOCUSATE SODIUM [...] is as documented in Prism. Objective: BP 120/68 Pulse 60 PHYSICAL EXAM: General: No acute distress. Alert, fully oriented, pleasant, conversant. HEENT: Conjunctivae/corneas clear. Pupils equal, Sclerae anicteric. Mucus membranes moist; oropharynx clear. Neck supple, symmetrical, trachea midline Lungs: Clear to auscultation bilaterally. Heart: Regular rate and rhythm, S1, S2 present, no murmur Abdomen: Soft, non-tender, non-distended. Extremities: Extremities without cyanosis or edema. Skin: Clear Musculoskeletal: Spine: No significant tenderness. Normal range of motion of the spine. Shoulder/Elbow: No significant tenderness, swelling, effusions, erythema or warmth is present. Appropriate range of motion present. Wrist/Hand: Left 2nd PIP tenderness without bogginess. No significant tenderness, swelling, effusions, erythema or warmth is present. Appropriate range of motion present. Hips/Knee: No significant tenderness, or erythema or warmth is present. Appropriate range of motion present. Ankle/Foot: No significant tenderness, swelling, effusions, erythema or warmth is present. Appropriate range of motion present. LABS: 05/14/2017 CMP normal Cr. 0.89 CBC normal RAPID3 Summary Functional Status: 0.3 Pain Tolerance: 4 Global Estimate: 1 Score: 5.3 Interpretation: Low ASSESSMENT: 1. 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 No psoriasis. No infections. Joints have all improved on Humira. Continue MTX 9 tabs po weekly and folic acid 1mg po daily. 2. 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 Up to date on pneumonia vaccines Encounter Diagnoses Name Primary? Psoriasis with arthropathy ([facility]) Yes ??? Encounter for long-term (current) use of medications PLAN: 1. Continue current meds. 2. Given new external lab orders 3. Can use ice or topical hydrocortisone or benadryl for injection site reactions. 4. F/u 6 months 1. Psoriasis with arthropathy ([facility]) COMPREHENSIVE METABOLIC PANEL (CMP) HEMAGRAM AND DIFFERENTIAL 2. Encounter for long-term (current) use of medications COMPREHENSIVE METABOLIC PANEL (CMP) HEMAGRAM AND DIFFERENTIAL Orders Placed This Encounter Procedures ??? Comprehensive Metabolic Panel (CMP) Standing Status: Standing Number of Occurrences: 12 Standing Expiration Date: 08/06/2018 Scheduling Instructions: Blood Test and Fasting How long do I have to fast for before a blood test? - If a fasting blood test is ordered, you should not have anything to eat or drink (except water) for at least eight hours. This usually involves an overnight fast. - You should continue to take any prescription medications, unless your physician directed you not to take them. - Smoking and exercise may affect your results as well, so you should refrain from these activitiesas much as possible during this time. If you have any concerns about refraining from food for this period of time, talk to your physician. Order Specific Question: The lab recommends a fasting sample. Should phlebotomy collect the sample if the patient is NOT fasting? Answer: Yes ? ? Hemagram & Differential Standing Status: Standing Number of Occurrences: 12 Standing Expiration Date: 08/06/2018 Barriers to learning identified: No Patient verbalizes understanding and agrees with plan Yes I was directly supervised by: Dr. Gray. They were present in clinic and available for consult if needed. Harsh Malloy NP 08/06/2017 11:57 I was present in the clinic for consultation while the METHODS AND PROCEDURES ANALYST was seeing patients. Jl Gray MD. 08/06/2017 Marisol Quiñonez RN - 08/06/2017 1130 EDT REVIEW OF SYSTEMS: Yes No Yes [...] X Hand/Foot color change in cold X documented in this encounter Plan of Treatment Upcoming Encounters Date Type Specialty Care Team Description 02/28/2022 Office Visit Rheumatology Harsh Malloy, ELBERT [address] [facility] [address] [place], [place] [address] (Wo rk) documented as of this encounter Visit Diagnoses Diagnosis Psoriasis with arthropathy (HCC) - Prima ry Psoriatic arthropathy Encounter for long-term (current) use of medications Encounter for long-term (current) use of other medications documented in this encounter Discontinued Medications Medication Sig Discontinue Reason Start Date End Date betamethasone Apply topically 2 Patient Stopped 10/12/20122017 dipropionate 0.05 % times daily. Do not Taking lotion apply to face, armpit or groin. calcipotriene (DOVONEX) Apply topically Patient Stopped 10/12/2012 08/06/2017 0.005 % cream once to twice daily Taking to affected areas. clobetasol (TEMOVATE) Apply topically Patient Stopped 10/07/2011 08/06/2017 0.05 % external twice a day to Taking solution scalp. Do not apply to face, armpit or groin. clobetasol (TEMOVATE) Apply topically to Patient Stopped 10/12/2013 08/06/2017 0.05 % affected area at Taking ointmentIndications: bedtime Apply Dermatitis nightly to the rash on elbow. Do not apply to face, armpit or groin.. triamcinolone (KENALOG) Apply topically 2 Patient Stopped 08/06/2017 0.1 % creamIndications: times daily as Taking Psoriatic arthritis needed. ([facility]), Encounter for long-term (current) use of other medications Salicylic Acid 6-6 % Topically once Patient Stopped 10/07/2011 KtSG daily to affected Taking areas documented as of this encounter Care Teams Visiting Professor Relationship Specialty Start Date End Date Meredith Rapp MD PCP - General 08/09/10 08/04/18 [address] [place] [id number] documented as of this encounter
--- OUTSIDE RECORDS SUMMARY | 2022-02-08 01:51 | XMS_ITS | Encounter Summary ---
:1970 Author Organization [facility] Address [address] [place] [address] Care Team Providers Name Role Phone Meredith Rapp MD Primary Care Provider Reason for Referral PT/OT/ST (Routine) - New Request Specialty Diagnoses / Procedures Referred By Contact Refer red To Contact Diagnoses Right hip pain Harsh Malloy, GRIND OPERATOR [address] [facility] [address] [place] [address] Referral ID Status Reason Start Expiration Visits Visits Date Date Requested Authorized [id number] New Request Specialty 02/02/2018 1 1 Services Required Question Answer Reason for Request: right hip catching on flexi on and abduction, aduction Reason for Visit Reason Comments Joint Pain right hand right hip is a cl ipping sound Encounter Details Date Type Department Care Team Description 02/02/2018 Office Visit [facility] Harsh Malloy, Ps oriasis with arthropathy ([facility]) (Primary Dx); 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 Right hip pain; Immunology - [facility] [address] [place] Need for Streptococcus pneumoniae vaccination; [address] Encounter for long-term (current) use of medications [address] [place], [place] [phone] [place] [address] [place] [address] (Wo rk) Social History Tobacco [...] Sign Reading Time Taken Comments Blood Pressure 119/70 02/02/2018 1124 EDT Pulse 78 02/02/2018 1124 EDT Temperature - - Respiratory Rate - - Oxygen Saturation - - Inhaled Oxygen Concentration - - Weight 67.1 kg (148 lb) 02/02/2018 1124 EDT verbal Height 164.5 cm (5' 4.76) 02/02/2018 1124 EDT Body Mass Index 24.81 02/02/2018 1124 EDT documented in this encounter Functional Status [...] this encounter Patient Instructions Patient InstructionsHarsh Malloy APRN - 02/02/2018 11:30 EDT 1. Continue current meds. 2. Try a new mouse for right hand 3. For right hip can try hip flexor and abduction/adduction exercises and PT if not improved with time/stretches 4. Pneumonia 23 today and every 5 years until 65 5. Recommend shingrix at age 50 6. F/u 6 months Vaccine Information Statement: Shingrix Recombinant Zoster (Shingles) Vaccine, RZV: What you need to know Many Vaccine Information Statements are available in Chinese and other languages. See www.immunize.org/vis [place] de [...] it yourself through the VAERS website at www.vaers.[facility].gov, or by calling . path intelligence does not give medical advice. 6. How can I learn more? Ask your health care provider. He or she can give you the vaccine package insert or suggest other sources of information. ??? Call your local or state health department. ??? Contact the Centers for Disease Control and Prevention (CDC): - Call (8-381-GII-INFO) or - Visit [facility]???s website at www.cdc.gov/vaccines Vaccine Information Statement Recombinant Zoster Vaccine 06/09/2017 Department of Health and Human Services Centers for Disease Control and Prevention Office Use Only documented in this encounter Ordered Prescriptions Prescription Sig Dispensed Refills Start Date End Date methotrexate 2.5 mg tablet Take 9 Tabs by 108 Tab 3 02/0207/21/2018 mouth once a week. documented in this encounter Progress Notes Harsh Malloy APRN - 02/02/2018 1130 EDT Patient ID: iNna Boothe is a 47 y.o. y.o. female Subjective: Chief Complaint: Joint Pain (right hand right hip is a clipping sound) HPI: Here for follow up of psoriatic arthritis on enebrel and methotrexate. Last seen in clinic on 08/06/2017 and was MICHAEL lu for [facility]. Changes since last visit: 01/13/2018 Sphyncerotomy - - right hip started clicking intermittently after the procedure feels like its in the joint. Has just been cleared for activity. Flu vaccine Denies??any other joint pains or swelling. ?? [...] is as documented in Prism. Objective: BP 119/70 Pulse 78 Ht 164.5 cm (64.76) Wt 67.1 kg (148 lb) Comment: verbal BMI 24.81 kg/m2 PHYSICAL EXAM: ?? General: No acute distress. [...] RAPID3 Summary Functional Status: 0 Pain Tolerance: 2 Global Estimate: 2.5 Score: 4.5 Interpretation: Low ASSESSMENT: 1. Psoriasis with arthropathy- doing well except right hip and right hand. Right hip clicking started after 01/13/2018 Sphincterectomy. Clicks with flexion, abduction and adduction. Will try home exercises and PT if needed. Given referral to PT. Right hand pain- is her mouse wheel fingers- also some pain with pinching motion. No joint inflammation, will try a different mouse. 2. No psoriasis 3. Pneumonia 23 given today and every 5 years 4. Continue labs every 3-4 months Encounter Diagnoses Name Primary? Right hip pain ??? Need for Streptococcus pneumoniae vaccination ??? Psoriasis with arthropathy (HCC-CMS) Yes ??? Encounter for long-term (current) use of medications PLAN: 1. Continue current meds. 2. Try a new mouse for right hand 3. For right hip can try hip flexor and abduction/adduction exercises and PT if not improved with time/stretches 4. Pneumonia 23 today and every 5 years until 65 5. Recommend shingrix at age 48 6. F/u 6 months 1. Psoriasis with arthropathy (HCC-CMS) PNEUMOCOCCAL POLYSACCHARIDE (PPSV23) VACCINE (PNEUMOVAX-23) 23-VALENT =>2YO SQ/IM 2. Right hip pain AMB CONS/FOLLOW UP PHYSICAL THERAPY 3. Need for Streptococcus pneumoniae vaccination PNEUMOCOCCAL POLYSACCHARIDE (PPSV23) VACCINE (PNEUMOVAX-23) 23-VALENT =>2YO SQ/IM 4. Encounter for long-term (current) use of medications Orders Placed This Encounter Procedures ??? Pneumococcal polysaccharide (PPSV23) vaccine (PNEIUMOVAX-23) 23-valent greater than or equal to 2yo subcutaneous/IM Order Specific Question: Print Script? Answer: No ??? Amb Consult/Follow Up Physical Therapy Referral Priority: Routine Referral Type: PT/OT/ST Referral Reason: Specialty Services Required Number of Visits Requested: 1 Barriers to learning identified: No Patient verbalizes understanding and agrees with plan Yes I was directly supervised by: Dr. Acuña . They were present in clinic and available for consult if needed. Harsh Malloy, ILEANA 02/02/2018 12:15 Attestation statement: Supervising Physician Chuck Acuña MD China Gurrola - 02/02/2018 1130 EDT REVIEW OF SYSTEMS: Yes No [...] Office Visit Rheumatology Harsh Malloy NP [address] [facility], [facility], [address] [place] [address] (Wo rk) Scheduled Referrals Name Type Priority Associated Diagnoses Order S chedule AMB CONS/FOLLOW UP Outpatient Referral Routine Right hip pain Ordered: PHYSICAL THERAPY 02/02/2018 documented as of this encounter Visit Diagnoses Diagnosis Psoriasis with arthropathy (HCC) - Prima ry Psoriatic arthropathy Right hip pain Pain in joint, pelvic region and thigh Need for Streptococcus pneumoniae vaccin ation Need for prophylactic vaccination agains t streptococcus pneumoniae (pneumococcus) Encounter for long-term (current) use of medications Encounter for long-term (current) use of other medications documented in this encounter Discontinued Medications Medication Sig Discontinue Reason Start Date End Date methotrexate 2.5 mg tablet Take 9 Tabs by Reorder 05/07/2017 02/02/2018 mouth once a week. documented as of this encounter Orders Immunization/Injection Count Last Ordered Date First O rdered Date PNEUMOCOCCAL POLYSACCHARIDE (PPSV23) 1 02/02/2018 VACCINE (PNEUMOVAX-23) 23-VALENT =>2YO SQ/IM documented in this encounter Care Teams Pantry Cook Relationship Specialty Start Date End Date Meredith Rapp MD PCP - General 08/09/10 08/04/18 [address] [place] [address] documented as of this encounter
--- OUTSIDE RECORDS SUMMARY | 2022-02-08 01:51 | XMS_ITS | Encounter Summary ---
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 Encounter for long-term (current) use of medications; [facility] [address] Need for influenza vaccination [address] [place] [address] [address], [place] [phone] (Wo rk) Social History Tobacco Use Types [...] Sign Reading Time Taken Comments Blood Pressure 124/72 02/08/2020 0933 EDT Pulse 74 02/08/2020 0933 EDT Temperature - - Respiratory Rate 14 02/08/2020 0933 EDT Oxygen Saturation - - Inhaled Oxygen Concentration - - Weight 74.8 kg (165 lb) 02/08/2020 0933 EDT Height 162 cm (5' 3.78) 02/08/2020 0933 EDT Body Mass Index 28.52 02/08/2020 0933 EDT documented in this encounter Functional Status [...] Patient Instructions Patient InstructionsHarsh Malloy APRN - 02/08/2020 9:30 EDT 1. Continue current meds. 2 labs every 3-4 months 3. Flu vaccine 4. Recommend arch supports - danform or skiirack 5. F/u 6 months documented in this encounter Progress Notes Harsh Malloy APRN - 02/08/2020 0930 EDT Images from the original note were not included. Patient ID: Nina Boothe is a 49 y.o. y.o. female Subjective: Chief Complaint: Follow-up (6 months), Joint Pain (knees and hands), and Flu Vaccine HPI: Here for follow up of psoriatic [...] 02/05/2019 Did a spartan race last week 08/12/2019 doing well The concept of ???Telemedicine?? has [...] participate in today's encounter visit: Harsh Malloy, ILEANA No psoriasis Intermittent joint flares - dependent [...] X Hand/Foot color change in cold X Changes since last visit some increased pain to knees and right lateral hand sometimes- doing well today REVIEW OF SYSTEMS: Yes No Yes No [...] Reactions ??? Asa [Aspirin] Hives Current Outpatient Medications Medication ??? acetaminophen (TYLENOL) 500 mg tablet ??? adalimumab (HUMIRA,CF, PEN) 40 mg/0.4 mL pen ??? cetirizine (ZYRTEC) 10 mg tablet ??? DOCUSATE SODIUM (COLACE ORAL) ??? fluocinonide (LIDEX) 0.05 % ointment ??? FLUTICASONE PROPIONATE (FLUTICASONE INHL) ??? folic acid (FOLVITE) 1 mg tablet ??? lisinopril (PRINIVIL, ZESTRIL) 10 mg tablet ??? loratadine-pseudoephedrine (CLARITIN-D 24 HOUR) 10-240 mg per tablet ??? methotrexate 2.5 mg tablet ??? montelukast (SINGULAIR) 10 mg tablet ??? Multivitamins with Minerals Tab ??? oxybutynin (DITROPAN) 5 mg tablet No current facility-administered medications for this visit. ROS - SEE HPI I reviewed the 10 point ROS performed by the nurse which is as documented in Prism. Objective: BP 124/72 (BP Cuff Location: Left arm, BP Patient Position: Sitting, BP Cuff Sizes: Adult, large) Pulse 74 Resp 14 Ht 162 cm (63.78) Wt 74.8 kg (165 lb) LMP 02/08/2020 (Exact Date) BMI 28.52 kg/m?? PHYSICAL EXAM: ?? General: No acute distress. Alert, fully oriented, pleasant, conversant. HEENT: Conjunctivae/corneas clear. Pupils equal, Sclerae anicteric. Mucus membranes moist; oropharynx clear. Neck supple anterior lymphadenopathy , symmetrical, trachea midline Lungs: Clear to auscultation bilaterally. Heart: Regular rate and rhythm, S1, S2 present, no murmur Abdomen: Soft, non-tender, non-distended. Extremities: Extremities without cyanosis or edema. Skin: clear Musculoskeletal: Spine:??No significant tenderness. Normal range of motion of the spine. Shoulder/Elbow: No significant tenderness, swelling, effusions, erythema or warmth is present. Appropriate range of motion present. Wrist/Hand: No significant tenderness, swelling, effusions, erythema or warmth is present. Appropriate range of motion present. Hips/Knee: No significant tenderness, or erythema or warmth is present.?Appropriate range of motion present. Ankle/Foot:?? pes planus bilaterally, bony hypertrophy bilateral ankles, No significant tenderness, swelling, effusions, erythema or warmth is present. Appropriate range of motion present. ?? LABS: 11/07/2017 CMP normal CBC normal except RBC 3.92 H/H 11.9/35.4 05/14/2017 CMP normal Cr. 0.89 CBC normal RAPID3 Summary Functional Status: 0 Pain Tolerance: 3 Global Estimate: 0 - Very Well Score: 3 Interpretation: Near Remission ASSESSMENT: 1. 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 Doing well on MTX 10, no joint activity 2. No psoriasis 3. Patient is currently on biologic therapy. Patient should receive either the PPSV23 or PCV13 vaccine, if indicated based on the CDC recommendations, either at the rheumatology office or PCP office. Up to date on pneumonia, shingrix 4. Up to date on labs Labs every 3-4 months 5. Flu vaccine today 6 pes planus - recommend arch supports Encounter Diagnoses Name Primary? Psoriatic arthropathy (HCC-CMS) Yes ??? Encounter for long-term (current) use of medications PLAN: 1. Continue current meds. 2 labs every 3-4 months 3. Flu vaccine 4. Recommend arch supports - danform or skiirack 5. F/u 6 months 1. Psoriatic arthropathy (HCC-CMS) 2. Encounter for long-term (current) use of medications No orders of the defined types were placed in this encounter. Barriers to learning identified: No Patient verbalizes understanding and agrees with plan Yes I was directly supervised by: Dr. Gray . They were present in clinic and available for consult if needed. Harsh Malloy APRN 02/08/2020 9:44 documented in this encounter Plan of Treatment Upcoming Encounters Date Type Specialty Care Team Description 02/28/2022 Office Visit Rheumatology Harsh Malloy, ELBERT 111 [facility], [facility], [address] [place], [place] [address] (Wo rk) documented as of this encounter Visit Diagnoses Diagnosis Psoriatic arthropathy (HCC) - Primary Psoriatic arthropathy Encounter for long-term (current) use of medications Encounter for long-term (current) use of other medications Need for influenza vaccination Need for prophylactic vaccination and in oculation against influenza documented in this encounter Orders Immunization/Injection Count Last Ordered Date First O rdered Date INFLUENZA VACCINE QUAD PF 0.5 ML IM (6 1 0 MOS+) documented in this encounter Care Teams Over Short And Damage Clerk Relationship Specialty Start Date End Date Kayleigh Mallory FNP PCP - General 02/04/19 [address] [place] [address] documented as of this encounter
--- OUTSIDE RECORDS SUMMARY | 2022-02-08 01:51 | XMS_ITS | Encounter Summary ---
:1970 Author Organization [facility] Address [address] [place] [address] Care Team Providers Name Role Phone Kayleigh Mallory LAY OUT FORMER Primary Care Provider Reason for Visit Reason Comments Follow-up Encounter Details Date Type Department Care Team Description 08/24/2020 Office Visit [facility] Harsh Malloy Ps oriatic arthropathy ([facility]) (Primary Dx); Rheumatology & CUTTER GRIND TOOL TECHNICIAN Encounter for long-term (current) use of medications Immunology - Main [address] [place], [place] [phone] [place] [address], [place] [phone] (Wo rk) Social History Tobacco Use Types [...] Sign Reading Time Taken Comments Blood Pressure 130/78 08/24/2020 0948 EDT Pulse 86 08/24/2020 0948 EDT Temperature - - Respiratory Rate 18 08/24/2020 0948 EDT Oxygen Saturation - - Inhaled Oxygen Concentration - - Weight 77.1 kg (170 lb) 08/24/2020 0948 EDT Height 161.9 cm (5' 3.75) 08/24/2020 0948 EDT Body Mass Index 29.41 08/24/2020 0948 EDT documented in this encounter Functional Status [...] Patient Instructions Patient InstructionsHarsh Malloy APRN - 08/24/2020 10:00 EDT 1. Continue current meds. 2. Labs every 3-4 months 3. F.u 6 months documented in this encounter Ordered Prescriptions Prescription Sig Dispensed Refills Start Date End Date folic acid (FOLVITE) 1 mg Take 1 Tab by mouth 90 Tab 3 0 08/24/2020 10/23/2020 tablet daily. documented in this encounter Progress Notes Harsh Malloy APRN - 08/24/2020 1000 EDT Images from the original note were not included. Patient ID: Reilly Hui is a 50 y.o. y.o. female Subjective: Chief Complaint: Follow-up HPI: Here for follow up of psoriatic [...] did participate in today's encounter visit: Harsh Malloy APRN No psoriasis Intermittent joint flares - dependent [...] X Hand/Foot color change in cold X 02/08/2020 some increased pain to knees and right [...] in cold X Changes since last visit REVIEW OF SYSTEMS: Yes No Yes No [...] X Hand/Foot color change in cold X covid pfizer 06/28/20 States toes occasionally swell GI asked her to ask If we needed to check humira antibodies Will have hemorrhoids treatment- tie them off Has a rectocele - trying to avoid sx and needs to see ORACLE ETL DEVELOPER to check anterior pelvic tissue Patient Active Problem List Diagnosis ??? Psoriasis [...] is as documented in Prism. Objective: BP 130/78 Pulse 86 Resp 18 Ht 161.9 cm (63.75) Wt 77.1 kg (170 lb) BMI 29.41 kg/m?? PHYSICAL EXAM: ?? General: No acute [...] pes planus bilaterally, bony hypertrophy bilateral ankles, cock ups No significant tenderness, swelling, effusions, erythema or warmth is present. Appropriate range of motion present. ?? LABS: Results for REILLY HUI ( ) as of 08/23/2020 09:03 Ref. Range 12/02/2017 16:51 08/10/2020 07:32 Sodium, External Unknown 141 Potassium, External Unknown 4.0 Chloride, External Unknown 103 CO2, External Unknown 27.3 BUN, External Unknown 13 Creatinine, External Unknown 1.1 Glucose, Serum, External Unknown 119 Calcium, External Unknown 8.8 Total Protein, External Unknown 7.6 Albumin, External Unknown 4.1 AST, External Unknown 27 ALT, External Unknown 36 Bilirubin, Total, External Unknown 0.7 Alkaline Phosphatase, External Unknown 79 GFR, Calculated, External Unknown 52.16 WBC, External Unknown 6.48 RBC, External Unknown 4.67 Hemoglobin, External Unknown 14.4 HCT, External Unknown 43.4 MCH, External Unknown 30.8 MCV, External Unknown 92.9 MCHC, External Unknown 33.2 RDW-CV, External Unknown 13.0 PLT, External Unknown 337 ABS Neutrophils, External Unknown 3.89 Neutrophils, External Unknown 60 Lymphocytes, External Unknown 27.6 Eosinophils, External Unknown 3.1 Basophils, External Unknown 0.8 ABS Lymphs, External Unknown 1.79 ABS Monocytes, External Unknown 0.53 ABS Eosinophils, External Unknown 0.20 ABS Basophils, External Unknown 0.05 Monocytes, External Unknown 8.2 SURGICAL PATHOLOGY Unknown Rpt 11/07/2017 CMP normal CBC normal except RBC 3.92 H/H 11.9/35.4 05/14/2017 CMP normal Cr. 0.89 CBC normal RAPID3 Summary Functional Status: 0 Pain Tolerance: 5(right hand) Global Estimate: 1.5 Score: 6.5 Interpretation: Moderate ASSESSMENT: 1. 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 Doing well on MTX 25mg po weekly and humira, no jointactivity . States toes swell occasionally. No active on PE. 2. No psoriasis 3. Patient is currently on biologic therapy. Patient should receive either the PPSV23 or PCV13 vaccine, if indicated based on the CDC recommendations, either at the rheumatology office or PCP office. Up to date on pneumonia, shingrix 4. Up to date on labs Labs every 3-4 months 5. Completed covid vaccine - pfizer Pneumonia 13, pneumonia 23 and shingrix 6 pes planus - recommend arch supports Encounter Diagnoses Name Primary? Psoriatic arthropathy (HCC-CMS) Yes ??? Encounter for long-term (current) use of medications PLAN: 1. Continue current meds. 2. Labs every 3-4 months 3. F.u 6 months 1. Psoriatic arthropathy (HCC-CMS) 2. Encounter for long-term (current) use of medications No orders of the defined types were placed in this encounter. Barriers to learning identified: No Patient verbalizes understanding and agrees with plan Yes I was directly supervised by: Dr. Gray . They were present in clinic and available for consult if needed. Harsh Malloy APRN 08/24/2020 10:08 I spent a total of 30 minutes on the date of this encounter meeting with the patient and reviewing documentation/coordinating care as described in the above note. No procedures were performed at the time of the visit. documented in this encounter Plan of Treatment Upcoming Encounters Date Type Specialty Care Team Description 02/28/2022 Office Visit Rheumatology Harsh Malloy, ELBERT 111 [facility], [facility], [address] [place] [phone] (Wo rk) documented as of this encounter Visit Diagnoses Diagnosis Psoriatic arthropathy (HCC) - Primary Psoriatic arthropathy Encounter for long-term (current) use of medications Encounter for long-term (current) use of other medications documented in this encounter Discontinued Medications Medication Sig Discontinue Reason Start Date End Date folic acid (FOLVITE) 1 TAKE 1 TABLET BY Reorder 10/23/2019 0 08/24/2020 mg tablet MOUTH EVERY DAY documented as of this encounter Care Teams Shading Painter Relationship Specialty Start Date End Date Kayleigh Mallory FNP PCP - General 02/04/19 [address] [place], [place] [phone] documented as of this encounter
--- OUTSIDE RECORDS SUMMARY | 2022-02-08 01:51 | XMS_ITS | Encounter Summary ---
:1970 Author Organization [facility] Address [address] [place] [address] Care Team Providers Name Role Phone Kayleigh Mallory PANAMA HAT SMEARER Primary Care Provider Encounter Details Date Type Department Care Team Description 07/19/2020 Ambulatory Pharmacy [facility] Eric Redmond RP H Ambulatory Pharmacy - [facility] [address] [place], [place] [id number] Social History Tobacco Use Types Packs/Day Years [...] Visit Rheumatology Harsh Malloy, ELBERT 111 [facility] venue [facility], [address], [address] [place], [place] [phone] (Wo rk) documented as of this encounter Visit Diagnoses Not on filedocumented in this encounter Care Teams Fitness And Wellness Instructor Relationship Specialty Start Date End Date Kayleigh Mallory FNP PCP - General 02/04/19 [address] [place], [place] [address] documented as of this encounter
--- OUTSIDE RECORDS SUMMARY | 2022-02-08 01:51 | XMS_ITS | Encounter Summary ---
:1970 Author Organization [facility] Address [address] [place] [address] Care Team Providers Name Role Phone Unknown, Provider Primary Care Provider Encounter Details Date Type Department Care Team Description 10/22/2018 Ambulatory Pharmacy [facility] Eric Redmond RP H Ambulatory Pharmacy - [facility] [address] [place], [place] [id number] Social History Tobacco Use Types Packs/Day Years [...] Harsh Malloy, ELBERT 111 [facility] [address], [address] [place], [place] [phone] (Wo rk) documented as of this encounter Visit Diagnoses Not on filedocumented in this encounter Care Teams Chute Worker Relationship Specialty Start Date End Date Unknown, Provider, PCP - General 08/05/18 02/03/19 documented as of this encounter
--- OUTSIDE RECORDS SUMMARY | 2022-02-08 01:51 | XMS_ITS | Encounter Summary ---
:1970 Author Organization [facility] Address [address] [place] [address] Care Team Providers Name Role Phone Meredith Rapp MD Primary Care Provider Reason for Visit Reason Comments Other Encounter Details Date Type Department Care Team Description 06/17/2018 Refill [facility] Darrian Hernandez MD Other Rheumatology & Immunology - [address] [place] [address] [address] [place], [place] [phone] [place] [phone] (Wo rk) Social History Tobacco Use Types [...] acid (FOLVITE) 1 mg TAKE 1 TABLET DAILY 90 Tab 1 0 06/19/2018 08/06/2018 tablet documented in this encounter Plan of Treatment Upcoming Encounters Date Type Specialty Care Team Description 02/28/2022 Office Visit Rheumatology Harsh Malloy, WOOD HEEL BACK LINER 111 [facility], [facility], [address] [place], [place] [phone] (Wo rk) documented as of this encounter Visit Diagnoses Not on filedocumented in this encounter Care Teams Mushroom Grower Relationship Specialty Start Date End Date Meredith Rapp MD PCP - General 08/09/10 08/04/18 [address] [place] [address] documented as of this encounter
--- OUTSIDE RECORDS SUMMARY | 2022-02-08 01:51 | XMS_ITS | Encounter Summary ---
:1970 Author Organization [facility] Address [address] [place] [address] Care Team Providers Name Role Phone Kayleigh Mallory ESCROW ASSISTANT Primary Care Provider Reason for Visit Reason Onset Date Comments Medications Refill 05/10/2019 Encounter Details Date Type Department Care Team Description 05/10/[address] [facility] Judson Malloy NP Medications Refill Ambulatory Pharmacy - [address] [place] [address], [address] [place], [place] [id number] [place] [address] [phone] (Wo rk) Social History Tobacco Use [...] Dispensed Refills Start Date End Date adalimumab (ARTUROCF, Inject 0.4 mL into 6 Pen 1 05/1011/18/2019 PEN) 40 mg/0.4 mL pen the skin every 14 days. Specialty. documented in this encounter Miscellaneous Notes Telephone Encounter - Migdalia Quintanilla - 05/10/2019 1311 EST Refill Request Medication: Humira Refill due: Now Date of last fill: Pharmacy: [facility] Renewal of Humira (adalimumab) is required for continued use; order sent per refill protocol to [facility] for dispensing. Follow-up visit scheduled with Harsh Malloy NP on 08/13/19. Eric Redmond, Pharm.D., [facility] Pharmacist Clinician - Rheumatology 05/10/2019 documented in this encounter Plan of Treatment Upcoming Encounters Date Type Specialty Care Team Description 02/28/2022 Office Visit Rheumatology Harsh Mlaloy NP [address] [facility], [facility], [address] [place], [place] [address] (Wo rk) documented as of this encounter Visit Diagnoses Not on filedocumented in this encounter Discontinued Medications Medication Sig Discontinue Reason Start Date End Date adalimumab (HUMIRA,CF, Inject 40 mg into Reorder 10/22/2018 05/10/2019 PEN) 40 mg/0.4 mL pen the skin every 14 injector kit days. Specialty. documented as of this encounter Care Teams Production Controller Relationship Specialty Start Date End Date Kayleigh Mallory FNP PCP - General 02/04/19 [address] [place] [address] documented as of this encounter
--- OUTSIDE RECORDS SUMMARY | 2022-02-08 01:51 | XMS_ITS | Encounter Summary ---
:1970 Author Organization [facility] Address [address] [place] [address] Care Team Providers Name Role Phone Unknown, Provider Primary Care Provider Reason for Referral Medication Prior Authorization (Routine) - Closed Specialty Diagnoses / Procedures Referred By Contact Refer red To Contact Pharmacy Diagnoses Psoriatic arthropathy (HCC) Encounter for long-term (current) use of medications Hammer toes of both feet Harsh Malloy, CERTIFIED MASTER SAFECRACKER Ambulatory Pharmacy [address] [place] [address], [address] [place] [address] Referral ID Status Reason Start Expiration Visits Visits Date Date Requested Authorized [id number] Closed Medication Prior 10/16/2018 1 1 Authorization Question Answer Medication to be Prior Authorized: Reauthorize humira 40 mg/0.8 pen kit subcutaneously every 14 days for psoriatic arthropathy Comments The purpose of this consult request is t o inform the scheduling staff that a medication needs to be prior-authorized before it is prescribed and/or administered. Reason for Visit Reason Onset Date Comments Prior Auth, Medication 10/16/2018 Humira Encounter Details Date Type Department Care Team Description 10/16/2018 Telephone [facility] Harsh Malloy, Pr ior Auth, Rheumatology & CERTIFIED MASTER SAFECRACKER Medication (Humira) Immunology - Main [address] [place] [address] [place] [address], [place] [phone] (Wo rk) Social History Tobacco Use Types [...] this encounter Miscellaneous Notes Telephone Encounter - Eric Redmond, [facility] - 11/03/2018 1000 EDT Routine Tuberculosis Risk Assessment for Use of Biologic Medications This patient is using a biologic medication, Humira (adalimumab). Following the [employer] guidance, a risk assessment of tuberculosis (TB) exposure will be completed. Last negative TB: 06/2012 The following risk factors were discussed in alignment with CDC guidance and answers are outlined below: ??? Close contacts of persons known or suspected to have active TB ??? Visit to areas with a high prevalence of active TB ??? Residents and employees of congregate settings whose clients are at an increased risk for activeTB ??? 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 NO Have you traveled outside the [place] in the past 5 years, specifically to [place], [place], [place], or Eastern [place]*? NO Have you worked or lived in a correctional facility, long-term care facility, or homeless senior living inthe past 5 years? NO Are you a healthcare worker? NO A risk for tuberculosis was not identified and re-screening is not recommended at this time. Repeat TB risk assessment in 5 years (NOVEMBER/2023). *[place], [place], [place], [place], [place], [place], [place], [place], [place], Sloven[place], [place], [place], [place], [place], [place], [place], [place], [place], [place], [place], [place]. Erick JA, et al. Arthritis Care & Research. 2012. 64(5): 387-639. elephone Encounter - Jossy Fuchs - 10/20/2018 1551 EDT Prior Authorization Approval Medication: Humira 40mg/0.8mL pen Approval Dates: 09/21/2018 - 10/21/2019 Authorization Number: [id number] Pharmacy: [facility] (plan restriction) Notes: 10/22- Left msg to inform pt of approval & pharmacy restrictions. Prior Authorization Submission Process Medication: Humira 40mg/0.8mL pen Insurance: [facility] [place] (L4FA) Date PA Request Received: 10/16/2018 PA Submission Date: 10/21/2018 elephone Encounter - Marleny Rodriguez - 10/16/2018 1503 EDT Reason for Call: Prior Auth, Medication (Humira) Summary/Symptoms: [facility] calling to state a pt needs a PA done for Humira. They are requesting a call back with decision once received. Marleny Rodriguez 10/16/2018 15:04 documented in this encounter Plan of Treatment Upcoming Encounters Date Type Specialty Care Team Description 02/28/2022 Office Visit Rheumatology Harsh Malloy NP 111 [facility], [address] [place], [place] [address] (Wo rk) Scheduled Referrals Name Type Priority Associated Order Schedule Diagnoses AMB MEDICATION PRIOR Outpatient Referral Routine Psoriatic Ordered: AUTHORIZATION arthropathy 10/16/[address]) Encounter for long-term (current) use of medicatio ns Hammer toes of both feet documented as of this encounter Visit Diagnoses Diagnosis Psoriatic arthropathy (HCC) - Primary Psoriatic arthropathy Encounter for long-term (current) use of medications Encounter for long-term (current) use of other medications Hammer toes of both feet documented in this encounter Care Teams Process Server Relationship Specialty Start Date End Date Unknown, Provider, PCP - General 08/05/18 02/03/19 documented as of this encounter
--- OUTSIDE RECORDS SUMMARY | 2022-02-08 01:51 | XMS_ITS | Encounter Summary ---
:1970 Author Organization [facility] Address [address] [place] [address] Care Team Providers Name Role Phone Kayleigh Mallory WILFREDO Primary Care Provider Reason for Visit Reason Comments Other Encounter Details Date Type Department Care Team Description 10/09/2019 [facility] Judson Malloy NP Other Rheumatology & Immunology - [address] [place] [address] [address] [place], [place] [phone] [place] [phone] (Wo rk) Social History Tobacco Use [...] 02/28/2022 Office Visit Rheumatology Harsh Malloy NP [address] [place], [place] [address], [address] [place], [place] [phone] (Wo rk) documented as of this encounter Visit Diagnoses Not on filedocumented in this encounter Care Teams Obstetrics Gyn Relationship Specialty Start Date End Date Kayleigh Mallory FNP PCP - General 02/04/19 [address] [place] [address] documented as of this encounter
--- OUTSIDE RECORDS SUMMARY | 2022-02-08 01:51 | XMS_ITS | Encounter Summary ---
:1970 Author Organization [facility] Address [address] [place] [address] Care Team Providers Name Role Phone Meredith Rapp MD Primary Care Provider Reason for Visit Reason Comments Other Encounter Details Date Type Department Care Team Description 12/25/2017 Refill [facility] Judson Malloy NP Other Rheumatology & Immunology - [address] [place] [address] [address] [place], [place] [phone] [place] [phone] (Wo rk) Social History Tobacco Use Types [...] Dispensed Refills Start Date End Date adalimumab (HUMIRA PEN) 40 Inject 1 Pen into 6 Pen 1 06/25/2018 mg/0.8 mL pen kit the skin every 14 days. documented in this encounter Plan of Treatment Upcoming Encounters Date Type Specialty Care Team Description 02/28/2022 Office Visit Rheumatology Harsh Malloy, SOCIAL INSURANCE ADVISER 111 [facility], [facility], [address] [place], [place] [address] (Wo rk) documented as of this encounter Visit Diagnoses Not on filedocumented in this encounter Discontinued Medications Medication Sig Discontinue Reason Start Date End Date adalimumab (HUMIRA PEN) 40 Every two weeks. Reorder 05/14/2017 12/25/2017 mg/0.8 mL pen kit documented as of this encounter Care Teams Echocardiographer Relationship Specialty Start Date End Date Meredith Rapp MD PCP - General 08/09/10 08/04/18 [address] [place] [address] documented as of this encounter
--- OUTSIDE RECORDS SUMMARY | 2022-02-08 01:51 | XMS_ITS | Encounter Summary ---
:1970 Author Organization [facility] Address [address] [place] [address] Care Team Providers Name Role Phone Kayleigh Mallory WILFREDO Primary Care Provider Encounter Details Date Type Department Care Team Description 07/26/2019 Ambulatory Pharmacy [facility] Eric Redmond RP H Ambulatory Pharmacy - [facility] [address] [place], [place] [phone] Social History Tobacco Use Types Packs/Day Years [...] Office Visit Rheumatology Harsh Malloy, ELBERT 111 [facility], [facility] ivan Ruiz, [address] [place], [place] [phone] (Wo rk) documented as of this encounter Visit Diagnoses Not on filedocumented in this encounter Care Teams Band Head Saw Operator Relationship Specialty Start Date End Date Kayleigh Mallory FNP PCP - General 02/04/19 [address] [place], [place] [address] documented as of this encounter
--- OUTSIDE RECORDS SUMMARY | 2022-02-08 01:51 | XMS_ITS | Encounter Summary ---
:1970 Author Organization [facility] Address [address] [place] [address] Care Team Providers Name Role Phone Kayleigh Mallory FEDERAL AGENT Primary Care Provider Reason for Visit Reason Onset Date Comments Medications Refill 11/09/2019 Encounter Details Date Type Department Care Team Description 11/09/2019 Telephone [facility] Harsh Malloy Me dications Refill Rheumatology & LINE SUPPLY Immunology - [facility] [phone] [place] [address], [place] [address] (Wo rk) Social History Tobacco [...] Inject 0.4 mL into 6 Pen 1 11/1705/17/2020 PEN) 40 mg/0.4 mL pen the skin every 14 days. Specialty. documented in this encounter Miscellaneous Notes Telephone Encounter - Zoe Bautista - 11/09/2019 1344 EDT Medication Request Medication: Humira Refill due: November outreach Pharmacy: [facility] Renewal of Humira (adalimumab) is required for continued use; order sent per refill protocol to [facility] for dispensing. Follow-up visit scheduled with Harsh Malloy NP on 02/08/2020. Eric Redmond, Pharm.D., BCPS Pharmacist Clinician - Rheumatology 11/18/2019 documented in this encounter Plan of Treatment Upcoming Encounters Date Type Specialty Care Team Description 02/28/2022 Office Visit Rheumatology Harsh Malloy NP 111 [facility], [address] [place], [place] [phone] (Wo rk) documented as of this encounter Visit Diagnoses Not on filedocumented in this encounter Discontinued Medications Medication Sig Discontinue Reason Start Date End Date adalimumab (HUMIRA,CF, Inject 0.4 mL into Reorder 05/10/2019 11/18/2019 PEN) 40 mg/0.4 mL pen the skin every 14 days. Specialty. documented as of this encounter Care Teams Lead Pastor Relationship Specialty Start Date End Date Kayleigh Mallory FNP PCP - General 02/04/19 [address] [place] [address] documented as of this encounter
--- OUTSIDE RECORDS SUMMARY | 2022-02-08 01:51 | XMS_ITS | Encounter Summary ---
:1970 Author Organization [facility] Address [address] [place] [address] Care Team Providers Name Role Phone Unknown, Provider Primary Care Provider Encounter Details Date Type Department Care Team Description 01/26/2019 Ambulatory Pharmacy [facility] Eric Redmond RP H Ambulatory Pharmacy - [facility] [address] [place], [place] [phone] Social History Tobacco Use Types Packs/Day Years [...] Office Visit Rheumatology Harsh Malloy, ELBERT 111 [facility], [address] [place], [place] [address] (Wo rk) documented as of this encounter Visit Diagnoses Not on filedocumented in this encounter Care Teams Vendor Representatives Relationship Specialty Start Date End Date Unknown, Provider, PCP - General 08/05/18 02/03/19 documented as of this encounter
--- OUTSIDE RECORDS SUMMARY | 2022-02-08 01:51 | XMS_ITS | Encounter Summary ---
:1970 Author Organization [facility] Address [address] [place] [address] Care Team Providers Name Role Phone Kayleigh Mallory WILFREDO Primary Care Provider Encounter Details Date Type Department Care Team Description 02/22/2019 Ambulatory Pharmacy [facility] Eric Redmond RP H Ambulatory Pharmacy - [facility] [address] [place], [place] [phone] Social History Tobacco Use Types Packs/Day Years [...] Visit Rheumatology Harsh Malloy, ELBERT [address] [facility] ivan [facility], [address] [place], [place] [address] (Wo rk) documented as of this encounter Visit Diagnoses Not on filedocumented in this encounter Care Teams Aviation Tactical Readiness Officer Relationship Specialty Start Date End Date Kayleigh Mallory FNP PCP - General 02/04/19 [address] [place], [place] [address] documented as of this encounter
--- OUTSIDE RECORDS SUMMARY | 2022-02-08 01:51 | XMS_ITS | Encounter Summary ---
:1970 Author Organization [facility] Address [address] [place] [address] Care Team Providers Name Role Phone Meredith Rapp MD Primary Care Provider Encounter Details Date Type Department Care Team Description 12/02/2017 Hospital Encounter [facility]- Melissa Unknown, Provider, [facility] [address] [facility] [phone] [place] [address] (Work) [phone] Social History Tobacco Use Types Packs/Day Years [...] making decisions? documented as of this encounter Medications at Time of Discharge Medication Sig Dispensed Refills Start Date End Date acetaminophen (TYLENOL) Take 1,000 mg by 0 500 mg tablet mouth every 6 hours as needed. cetirizine (ZYRTEC) 10 mg Take 10 mg [...] Inhale as directed 0 (FLUTICASONE INHL) daily. lisinopril (PRINIVIL, Take 10 mg by mouth 0 ZESTRIL) 10 mg tablet daily loratadine-pseudoephedrin Take 1 Tab by mouth 0 e (CLARITIN-D 24 HOUR) daily as needed. 10-240 mg per tablet Reported on 04/17/2016 montelukast (SINGULAIR) Take 10 mg by mouth 0 10 mg tablet daily Multivitamins with Take 1 Tab by mouth 0 Minerals Tab daily. oxybutynin (DITROPAN) 5 Take 5 mg by mouth 2 0 mg tablet times daily. adalimumab (HUMIRA PEN) Every two weeks. 6 Pen 2 201712/25/2017 40 mg/0.8 mL pen kit folic acid (FOLVITE) 1 mg Take 1 Tab by mouth 90 Tab 1 0 05/07/2017 02/01/2018 tablet daily. methotrexate 2.5 mg Take 9 Tabs by mouth 108 Tab 3 201702/02/2018 tablet once a week. documented as of this encounter Discharge Disposition Disposition Code Departure Means Destination Home or Self Intermediate documented in this encounter Plan of Treatment Upcoming Encounters Date Type Specialty Care Team Description 02/28/2022 Office Visit Rheumatology Harsh Malloy, DIRECTOR OF MATERNITY SERVICES 111 [facility], [facility], [address] [place], [place] [address] (Wo rk) documented as of this encounter Visit Diagnoses Not on filedocumented in this encounter Care Teams Coil Strapper Relationship Specialty Start Date End Date Meredith Rapp MD PCP - General 08/09/10 08/04/18 [address] [place] [address] documented as of this encounter
--- OUTSIDE RECORDS SUMMARY | 2022-02-08 01:51 | XMS_ITS | Encounter Summary ---
:1970 Author Organization [facility] Address [address] [place] [address] Care Team Providers Name Role Phone Kayleigh Mallory WILFREDO Primary Care Provider Encounter Details Date Type Department Care Team Description 05/10/2019 Ambulatory Pharmacy [facility] Eric Redmond RP H Ambulatory Pharmacy - [facility] [address] [place], [place] [phone] Social History Tobacco Use Types Packs/Day Years [...] Office Visit Rheumatology Harsh Malloy, ELBERT 111 [facility] ivan [facility], [address] [place], [place] [address] (Wo rk) documented as of this encounter Visit Diagnoses Not on filedocumented in this encounter Care Teams Tram Operator Relationship Specialty Start Date End Date Kayleigh Mallory FNP PCP - General 02/04/19 [address] [place], [place] [address] documented as of this encounter
--- OUTSIDE RECORDS SUMMARY | 2022-02-08 01:52 | XMS_ITS | Encounter Summary ---
:1970 Author Organization [facility] Address [address] [place] [address] Care Team Providers Name Role Phone Meredith Rapp MD Primary Care Provider Reason for Visit Reason Comments Other Encounter Details Date Type Department Care Team Description 07/13/2013 Refill [facility] Darrian Hernandez MD Other Rheumatology & Immunology - [address] [place] [address] [place] [phone] (Wo rk) Social History Tobacco Use Types Packs/Day Years Used Date Never Smoker Smokeless Tobacco: Never Used Alcohol Use Standard Drinks/Week Comments No 0 (1 standard drink = 0.6 oz pure alcoho l) Sex Assigned at Date Recorded Female 06/29/2019 10:58 EST documented as of this encounter Ordered Prescriptions Prescription Sig Dispensed Refills Start Date End Date naproxen (NAPROSYN) 500 mg take 1 tablet by 180 Tab 1 01/05/2016 tablet mouth twice a day with food if needed for pain documented in this encounter Plan of Treatment Upcoming Encounters Date Type Specialty Care Team Description 02/28/2022 Office Visit Rheumatology Harsh Malloy NP [address] [phone] (Wo rk) documented as of this encounter Visit Diagnoses Not on filedocumented in this encounter Discontinued Medications Medication Sig Discontinue Reason Start Date End Date naproxen (NAPROSYN) 500 Take 1 Tab by mouth Reorder 02/19/2012 07/13/2013 mg tabletIndications: 2 times daily as Psoriatic arthritis needed for Pain. ([facility]), Encounter for Take with food long-term (current) use first of other medications documented as of this encounter Care Teams Final Block Press Operator Relationship Specialty Start Date End Date Meredith Rapp MD PCP - General 08/09/10 08/04/18 [address] [place] [address] documented as of this encounter
--- OUTSIDE RECORDS SUMMARY | 2022-02-08 01:52 | XMS_ITS | Encounter Summary ---
:1970 Author Organization [facility] Address [address] [place] [address] Care Team Providers Name Role Phone Meredith Rapp MD Primary Care Provider Encounter Details Date Type Department Care Team Description 02/09/2015 Documentation Visit [facility] Lilo Solis , Rheumatology & [facility] Immunology - Main [place] lubaus UMBERTO ROLAND [address] [place] [address] 1 [facility] [phone] [place] [address] Social History Tobacco Use Types Packs/Day Years [...] a physical, mental, or emotional condition, No 10/21/2014 does this person have difficulty doing errands alone such as visiting a doctor's office or shopping? Cognitive Status Response Date of Assessment Because of a physical, mental, or emotional condition, No 10/21/2014 does this person have serious difficulty concentrating, remembering, or making decisions? documented as of this encounter Progress Notes Lilo Solis [place] - 02/09/2015 1457 EDT Prior Authorization Approval for Rheumatology Medication: Enbrel SureClick 50mg/0.98mL Approved through: 02/09/2016 Authorization Number: [id number] Insurance: [employer]s ([place]) Pharmacy: [facility] Copay Assistance Program Information for Commercially Insured Patients only: Brand Generic Online (Encourage patients to enroll online) Phone Actemra Tocilizumab https://Game Trading technologies[employer] Inc./actemra_register 8-377-XAXYDGC ( ) Cimzia Certolizumab https://YEDInstitute/signup 1-982-776-CARE ( ) Enbrel Etanercept https://www.CatchSquare/support/financial-assistance/ 3-253-5OXRVXO ( ) Forteo Teriparatide http://www.Quest Resource Holding CorporationeoFinancial Transaction Services/wuglrw-pr-rwr-card.aspx Humira Adalimumab https://www.Zattoo.Lookinhotels/my-humira/sign-up 4HUMIRA ( ) Kineret Anakinra http://www.kineBroadcast.com.Lookinhotels/ *Kineret is only available through [facility] [phone] Orencia Abatacept https://www.Tuicool.Lookinhotels/orencia/# 1-077-TXBNLPA ( ) Otezla Apremilast http://www.otezla.Lookinhotels/pso/copay 1-642-9AGRRUT ( ) Remicade Infliximab http://www.remistart.Lookinhotels/ 7-869-XZMTYA-1 ( ) Rituxan Rituximab https://Game Trading technologies, Inc./rituxan_register 8-728-UM-COPAY ( ) Simponi Golimumab https://iTraff Technology/Coupon/SimponiPortal/ -MY SIMPONI ( ) Stelara Ustekinumab https://iTraff Technology/Coupon/HumbertoPortal/ 0-064-DWOXVIJ ( ) Xeljanz Tofacitinib http://www.xeljanz.Lookinhotels/co-pay-card 3-212-4-XELJANZ ( ) documented in this encounter Plan of Treatment Upcoming Encounters Date Type Specialty Care Team Description 02/28/2022 Office Visit Rheumatology Harsh Malloy NP 111 [facility], [facility], [address] [place], [place] [address] (Wo rk) documented as of this encounter Visit Diagnoses Not on filedocumented in this encounter Care Teams Linseed Cake Trimmer Relationship Specialty Start Date End Date Meredith Rapp MD PCP - General 08/09/10 08/04/18 [address] [place] [address] documented as of this encounter
--- OUTSIDE RECORDS SUMMARY | 2022-02-08 01:52 | XMS_ITS | Encounter Summary ---
:1970 Author Organization [facility] Address [address] [place] [address] Care Team Providers Name Role Phone Meredith Rapp MD Primary Care Provider Reason for Visit Reason Onset Date Comments Medications Refill 03/22/2015 Encounter Details Date Type Department Care Team Description 03/22/2015 Refill [facility] Nathen Penn Refill Rheumatology & Immunology - [facility] [address], [place] [id number] Social History Tobacco Use Types Packs/Day Years [...] Sig Dispensed Refills Start Date End Date Etanercept (ENBREL Inject 50 mg into 12 Pen 3 03/22/2015 02/19/2016 SURECLICK) 50 mg/mL (0.98 the skin once a mL) pen injector week documented in this encounter Plan of Treatment Upcoming Encounters Date Type Specialty Care Team Description 02/28/2022 Office Visit Rheumatology Harsh Malloy, BEAUTY SCHOOL INSTRUCTOR [address] [place] [address] [facility], [facility], Level [address] [place], [place] [address] (Wo rk) documented as of this encounter Visit Diagnoses Not on filedocumented in this encounter Discontinued Medications Medication Sig Discontinue Reason Start Date End Date Etanercept (ENBREL Inject 50 mg into Reorder 04/18/201402/27 SURECLICK) 50 mg/mL the skin once a (0.98 mL) pen injector week. documented as of this encounter Care Teams Production Sampler Relationship Specialty Start Date End Date Meredith Rapp MD PCP - General 08/09/10 08/04/18 [address] [place] [address] documented as of this encounter
--- OUTSIDE RECORDS SUMMARY | 2022-02-08 01:52 | XMS_ITS | Encounter Summary ---
:1970 Author Organization [facility] Address [address] [place] [address] Care Team Providers Name Role Phone Meredith Rapp MD Primary Care Provider Reason for Visit Reason Comments Joint Pain Off Enbrel x a weeks R/T josefina t surgery/infection. Hands are starting to hurt. Medication Management Wants to know if she can sta rt Enbrel. Has remained on methotrexate. Encounter Details Date Type Department Care Team Description 04/18/2014 Office Visit [facility] Etelvina Hernandez, Dawna iasis with arthropathy ([facility]) (Primary Dx); Rheumatology & MD Nail bed infection Immunology - [facility] [address] [facility] [facility] [address] [place], [place] [address] [place] [address], [place] [address] (Wo rk) Social History Tobacco [...] Sign Reading Time Taken Comments Blood Pressure 144/96 04/18/2014 1106 EST Pulse 76 04/18/2014 1106 EST Temperature - - Respiratory Rate 16 04/18/2014 1106 EST Oxygen Saturation - - Inhaled Oxygen Concentration - - Weight 65.3 kg (144 lb) 04/18/2014 1106 EST Height 166.4 cm (5' 5.5) 04/18/2014 1106 EST Body Mass Index 23.6 04/18/2014 1106 EST documented in this encounter Discharge Diagnoses Diagnosis 696.0 PSORIATIC ARTHROPATHY[ICD-9-CM] 681.9 CELLULITIS OF DIGIT NOS[ICD-9-CM] documented in this encounter Patient Instructions Patient InstructionsEtelvina Hernandez MD - 04/18/2014 11:33 EST Hold Enbrel until next week - restart if/when toes are better and off antibiotics Use naproxen up to twice a day as needed for pain (food first) Continue methotrexate and regular labs at least every 3 months documented in this encounter Ordered Prescriptions Prescription Sig Dispensed Refills Start Date End Date Etanercept (ENBREL Inject 50 mg into 12 Pen 3 04/18/2014 03/22/2015 SURECLICK) 50 mg/mL (0.98 the skin once a mL) pen injector week. methotrexate 2.5 mg tablet Take 5 Tabs by 60 Tab 3 04/1804/18/2015 mouth once a week. documented in this encounter Progress Notes Etelvina Hernandez MD - 04/18/2014 1125 EST Division of Rheumatology and Clinical Immunology Chief Complaint Patient presents with ??? Joint Pain Off Enbrel x a weeks R/T foot surgery/infection. Hands are starting to hurt. ??? Medication Management Wants to know if she can start Enbrel. Has remained on methotrexate. HPI: Patient here for followup of psoriatic arthritis. The patient tried weaning methotrexate from 5-4 tabs weekly but did have a flare up so went back to past with improvement. Overall she has been doing well until she had to skip Enbrel last week because of a toe infection and has noticed increased hand soreness. She would like to get the Enbrel restarted as soon as possible. The patient had chronic ingrown toenails of the great toes and had a procedure to burn the roots. Unfortunately she did develop a post procedure infection and was placed on Keflex last week. She saysher toe in traction is resolving but she has one more week of antibiotics to go before this is completed. She has not had any other infections. Current Outpatient Prescriptions Medication Sig Dispense Refill ??? acetaminophen (TYLENOL) 500 mg tablet Take 1,000 mg by mouth every 6 hours as needed. ??? betamethasone dipropionate 0.05 % lotion Apply topically 2 times daily. Do not apply to face, armpit or groin. 1 Bottle 3 ??? calcipotriene (DOVONEX) 0.005 % cream Apply topically once to twice daily to affected areas. 60 g 11 ??? cephALEXin (KEFLEX) 500 mg capsule Take 500 mg by mouth 4 times daily. ??? cetirizine (ZYRTEC) 10 mg tablet Take 10 mg by mouth daily. ??? clobetasol (TEMOVATE) 0.05 % external solution Apply topically twice a day to scalp. Do not apply to face, armpit or groin. 50 mL 1 ??? clobetasol (TEMOVATE) 0.05 % ointment Apply topically to affected area at bedtime Apply nightly to the rash on elbow. Do not apply to face, armpit or groin.. 30 g 2 ??? Etanercept (ENBREL SURECLICK) 50 mg/mL (0.98 mL) Pen Injector Inject 50 mg into the skin once a week. 12 Pen 3 ??? FLUTICASONE PROPIONATE (FLUTICASONE INHL) Inhale as directed daily. ??? folic acid (FOLVITE) 1 mg tablet take 1 tablet by mouth once daily 90 Tab 3 ??? loratadine-pseudoephedrine (CLARITIN-D 24 HOUR) 10-240 mg per tablet Take 1 Tab by mouth daily as needed. NOT CURRENTLY TAKING ??? methotrexate 2.5 mg tablet Take 5 Tabs by mouth once a week. 60 Tab 1 ??? Multivitamins with Minerals Tab Take 1 Tab by mouth daily. ??? naproxen (NAPROSYN) 500 mg tablet take 1 tablet by mouth twice a day with food if needed for pain 180 Tab 1 ??? Salicylic Acid 6-6 % KtSG Topically once daily to affected areas 1 Bottle 11 ??? triamcinolone (KENALOG) 0.1 % cream Apply topically 2 times daily as needed. No current facility-administered medications for this visit. Allergies include: Asa Past Medical History Diagnosis Date ??? Allergy ??? Psoriasis ??? Migraine ??? Abnormal Pap smear in remote past ??? Hyperthyroidism history of this, now resolved ??? Hypertension ??? Arthritis Past Surgical History Procedure Laterality Date ??? Tubal ligation ??? Tubal ligation ??? Knee arthroscopy bilateral knees Family History Problem Relation Age of Onset ??? Heart Disease Father ??? Arthritis Sister psoriatic arthritis on TNF alpha inhibitor ??? Arthritis Paternal Grandmother ??? Cancer Paternal Grandmother ??? Psoriasis Sister ??? Psoriasis Mother History Social History ??? Marital Status: Spouse Name: N/A Number of Children: N/A ??? Years of Education: N/A Occupational History ??? Not on file. Social History Main Topics ??? Smoking status: Never Smoker ??? Smokeless tobacco: Never Used ??? Alcohol Use: Yes Comment: About 2 beers a month if that ??? Drug Use: No ??? Sexual Activity: Not on file Other Topics Concern ??? Not on file Social History Narrative ??? No narrative on file REVIEW OF SYSTEMS: Yes No Yes No Fever x Joint pain X hands Fatigue x Muscle pain x Night sweats x Morning stiffness x Weight change x If yes, duration Gain or loss? Numbness/tingling x Eye discomfort x Headaches x Mouth/Nose sores x Muscle weakness x Chest pain x Burning on urination x Palpitations x Dark/bloody urine x Shortness of breath x Frequent urination x Cough x Trouble sleeping x Nausea/vomiting x Change in mood x Stomach pains/cramps x Nervous or anxious x Blood in stools x Sad or depressed x Diarrhea x Skin rash/changes x Constipation x Sun induced rash x Itching x Hand/Foot color change w/cold x Hair Loss x PHYSICAL EXAMINATION: BP 144/96 Pulse 76 Resp 16 Ht 166.4 cm (65.5) Wt 65.318 kg (144 lb) BMI 23.59 kg/m2 04/11/2014 MSK: Very mild swelling and tenderness bilateral index and middle PIPs. No synovitis noted over the remainder of the upper or lower extremities. Ext: Mild swelling, erythema, and tenderness at the beds of both great toenails. No discharge. LABS from outside hospital in December 2013: CMP negative except GFR 59.96 (nl >60), WBC 8.5, Hgb 14.6, HCT 41.3, platelets 221. Diagnosis / Assessment: Psoriatic arthritis, very mild activity since skipping Enbrel last week because of toenail bed infection. Toenail bed infection that is resolving but I still think it is not improved enough to restart Enbrel at this time. Recommendations/Evaluation: Wait 1 more week to restart Enbrel, as I suspect that once she is off Keflex the infection will haveresolved. Patient Instructions Hold Enbrel until next week - restart if/when toes are better and off antibiotics Use naproxen up to twice a day as needed for pain (food first) Continue methotrexate and regular labs at least every 3 months followup in 6 months with MICHAEL Mays and 6 months after that with me Barriers to learning identified: No Patient verbalizes understanding and agrees with plan Yes Etelvina Hernandez MD 04/18/2014 11:25 documented in this encounter Plan of Treatment Upcoming Encounters Date Type Specialty Care Team Description 02/28/2022 Office Visit Rheumatology Harsh Malloy, ELBERT [address] [facility], [facility], [address] [place], [place] [address] (Wo rk) documented as of this encounter Visit Diagnoses Diagnosis Psoriasis with arthropathy (HCC) - Prima ry Psoriatic arthropathy Nail bed infection Cellulitis and abscess of unspecified di git documented in this encounter Discontinued Medications Medication Sig Discontinue Reason Start Date End Date atenolol (TENORMIN) 50 Take 50 mg by Discontinued by another 04/18/2014 mg tabletIndications: mouth daily. clinician Psoriatic arthritis (HCC), Encounter for long-term (current) use of other medications methotrexate 2.5 mg Take 5 Tabs by Reorder 01/10/20142013 tablet mouth once a week. Etanercept (ENBREL Inject 50 mg into Reorder 06/18/201303/29 SURECLICK) 50 mg/mL the skin once a (0.98 mL) Pen Injector week. documented as of this encounter Historical Medications This list may reflect changes made after this encounter. Medication Sig Dispensed Refills Start Date End Date cephALEXin (KEFLEX) 500 Take 500 mg by mouth 0 10/21/2014 mg capsule 4 times daily. added in this encounter Care Teams Corporate Training Manager Relationship Specialty Start Date End Date Meredith Rapp MD PCP - General 08/09/10 08/04/18 [address] [place] [address] documented as of this encounter
--- OUTSIDE RECORDS SUMMARY | 2022-02-08 01:52 | XMS_ITS | Encounter Summary ---
:1970 Author Organization [facility] Address [address] [place] [address] Care Team Providers Name Role Phone Meredith Rapp MD Primary Care Provider Encounter Details Date Type Department Care Team Description 05/14/2017 Phlebotomy Only [facility] Casework Supervisor, Need for pneumococcal vaccination; - [facility] Outpatient Psoriatic arthropathy ([facility]) ([facility]); [address] [facility] Encounter for long-term (cur rent) use of medications; [place], [place] Hammer toes o f both feet; [id number] Psoriasis with arthropathy ( [facility]) ([facility]) [phone] Social History Tobacco Use Types Packs/Day Years [...] documented as of this encounter Progress Notes Harsh Malloy NP - 05/15/2017 0808 EST Cr. Back to normal CMP normal CBC normal documented in this encounter Plan of Treatment Upcoming Encounters Date Type Specialty Care Team Description 02/28/2022 Office Visit Rheumatology Harsh Malloy, ELBERT [address] [place] [facility], [facility], [address] [place], [place] [address] (Wo rk) documented as of this encounter Procedures Procedure Name Priority Date/Time Associated Diagnosis Comme nts COMPLETE BLOOD COUNT Routine 05/14/2017 11:56 Need for Res ults for this AND DIFFERENTIAL EST pneumococcal procedure a re in vaccination the results Psoriatic section. arthropathy ([facility] ([facility]) Encounter for long-term (current) use of medicatio ns Hammer toes of both feet Psoriasis with arthropathy ([facility]) ([facility]) COMPREHENSIVE Routine 05/14/2017 11:56 Need for Results fo r this METABOLIC PANEL (CMP) EST pneumococcal proced ure are in vaccination the results Psoriatic section. arthropathy ([facility]) ([facility]) Encounter for long-term (current) use of medicatio ns Hammer toes of both feet Psoriasis with arthropathy ([facility]) ([facility]) documented in this encounter Results COMPREHENSIVE METABOLIC PANEL (CMP) (05/14/2017 11:56 EST) Potassium 4.2 3.5 - 5.0 [facility] Sodium 141 136 - 145 [facility] Chloride 103 96 - 110 [facility] CO2 26 22 - 32 mEq/L [facility] Total Alkaline 61 38 - 126 U/L [facility] MEDICAL Phosphatase [facility] Bilirubin, Total 0.6 <1.4 mg/dl [facility] AST 26 15 - 46 U/L [facility] ALT 36 <53 U/L [facility] Albumin 4.5 3.4 - 4.9 [facility] g/dl [facility] Total Protein 7.6 6.3 - 8.2 [facility] g/dl [facility] Creatinine 0.89 0.52 - 1.04 [facility] mg/dl [facility] GFR, Calculated 77 >60 [facility] Comment: ml/min/1.73m2 [facility] eGFR calculated using CKD-EPI equation for SERVICES non Americans. Multiply eGFR by 1.16 for Americans. BUN 18 10 - 26 mg/dl [facility] Calcium 9.5 8.5 - 10.5 [facility] mg/dl [facility] Calculated Calcium 9.1 8.5 - 10.5 [facility] mg/dl [facility] Glucose, Serum 86 70 - 100 [facility] mg/dl [facility] Fasting? No [facility] Specimen Blood specimen (specimen) - Blood Performing Organization Address City/State/ZIP Code Phon e Number [facility] [address] [place] [address] SERVICES HEMAGRAM AND DIFFERENTIAL (05/14/2017 11:56 EST) Pathologist Sig nature WBC 7.79 4.0 - 12.4 [facility] LABORATORY SERVICES RBC 4.67 3.86 - 5.[address] [facility] LABORATORY SERVICES Hemoglobin 14.5 11.6 - 15.[address] [facility] gm/dl LABORATORY SERVICES HCT 41.7 34.9 - 44.4 % [facility] SERVICES MCV 89 81 - [address] [facility] SERVICES MCH 31.0 26.7 - 33.[address] [facility] SERVICES MCHC 34.8 32.1 - 35.[address] [facility] gm/dl LABORATORY SERVICES RDW-CV 14.5 <14.7 % [facility] SERVICES RDW-SD 46.6 <50.[address] [facility] SERVICES PLT 302 141 - 377 [facility] LABORATORY SERVICES MPV 9.7 9.5 - 12.[address] [facility] SERVICES Neutrophils 60.5 % [facility] SERVICES Lymphocytes 28.4 % [facility] Monocytes 8.6 % [facility] Eosinophils 1.4 % [facility] Basophils 0.6 % [facility] SERVICES Immature Grans 0.5 % [facility] SERVICES ABS Neutrophils 4.71 2.20 - 8.85 [facility] LABORATORY SERVICES ABS Lymphs 2.21 1.09 - 3.30 [facility] LABORATORY SERVICES ABS Monocytes 0.67 0.1 - 0.8 K/cmm [facility] LABOR[facility]ORY SERVICES ABS Eosinophils 0.11 0.03 - 0.[address] [facility] K/cm LABORATORY SERVICES ABS Basophils 0.05 0.01 - 0.[address] [facility] K/[facility] LABORATORY SERVICES ABS Immature Grans 0.04 0 - 0.06 /[facility] LABORATORY SERVICES Type of Diff: Automated [facility] SERVICES Specimen Blood specimen (specimen) - Blood Performing Organization Address City/State/ZIP Code Phon e Number [facility] [address] [place] [address] SERVICES documented in this encounter Visit Diagnoses Diagnosis Need for pneumococcal vaccination Need for prophylactic vaccination agains t streptococcus pneumoniae (pneumococcus) Psoriatic arthropathy (HCC) Psoriatic arthropathy Encounter for long-term (current) use of medications Encounter for long-term (current) use of other medications Hammer toes of both feet Psoriasis with arthropathy (HCC) Psoriatic arthropathy documented in this encounter Care Teams Engineer Specialist Relationship Specialty Start Date End Date Meredith Rapp MD PCP - General 08/09/10 08/04/18 [address] [place] [address] documented as of this encounter
--- OUTSIDE RECORDS SUMMARY | 2022-02-08 01:52 | XMS_ITS | Encounter Summary ---
:1970 Author Organization [facility] Address [address] [place] [address] Care Team Providers Name Role Phone Meredith aRpp MD Primary Care Provider Reason for Visit Reason Comments Other Encounter Details Date Type Department Care Team Description 04/04/2017 Refill [facility] Darrian Hernandez MD Other Rheumatology & Immunology - [address] [place] [address] [address] [place], [place] [phone] [place] [phone] (Wo rk) Social History Tobacco Use Types [...] a physical, mental, or emotional condition, No 11/12/2016 does this person have difficulty doing errands alone such as visiting a doctor's office or shopping? Cognitive Status Response Date of Assessment Because of a physical, mental, or emotional condition, No 11/12/2016 does this person have serious difficulty concentrating, remembering, or making decisions? documented as of this encounter Ordered Prescriptions Prescription Sig Dispensed Refills Start Date End Date folic acid (FOLVITE) 1 mg TAKE 1 TABLET DAILY 90 Tab 3 1 06/06/2016 05/06/2017 tablet documented in this encounter Plan of Treatment Upcoming Encounters Date Type Specialty Care Team Description 02/28/2022 Office Visit Rheumatology Harsh Malloy, ASSISTANT PROFESSOR OF PSYCHOLOGY [address] [facility], [facility], [address] [place], [place] [phone] (Wo rk) documented as of this encounter Visit Diagnoses Not on filedocumented in this encounter Discontinued Medications Medication Sig Discontinue Reason Start Date End Date folic acid (FOLVITE) 1 TAKE 1 TABLET DAILY Reorder 07/08/2016 04/04/2017 mg tablet documented as of this encounter Care Teams Retail District Manager Relationship Specialty Start Date End Date Meredith Rapp MD PCP - General 08/09/10 08/04/18 [address] [place] [address] documented as of this encounter
--- OUTSIDE RECORDS SUMMARY | 2022-02-08 01:52 | XMS_ITS | Encounter Summary ---
:1970 Author Organization [facility] Address [address] [place] [address] Care Team Providers Name Role Phone Meredith Rapp MD Primary Care Provider Reason for Visit Reason Onset Date Comments Prior Auth, Medication 01/31/2015 Encounter Details Date Type Department Care Team Description 01/31/2015 Telephone [facility] Darrian Hernandez MD Prior Auth, Rheumatology & [address] [place] [address] Medication [address], [address] [place], [place] [address] [place] [address] [phone] (Wo rk) Social History Tobacco Use [...] this encounter Miscellaneous Notes Telephone Encounter - China Penn RN - 01/31/2015 1617 EDT Left message for pt R/T prior auth and need to contact [facility] and update them prior to their re-authorizing Enbrel. elephone Encounter - Juani Meek - 01/31/2015 1226 EDT Rep from [facility] called today: Enbrel 50 MG will not be re- authorized until patient contacts them to update her information. documented in this encounter Plan of Treatment Upcoming Encounters Date Type Specialty Care Team Description 02/28/2022 Office Visit Rheumatology Harsh Malloy, ELBERT [address] [facility], [facility], [address] [place] [address] (Wo rk) documented as of this encounter Visit Diagnoses Not on filedocumented in this encounter Care Teams Electric Truck Driver Relationship Specialty Start Date End Date Meredith aRpp MD PCP - General 08/09/10 08/04/18 [address] [place] [address] documented as of this encounter
--- OUTSIDE RECORDS SUMMARY | 2022-02-08 01:52 | XMS_ITS | Encounter Summary ---
:1970 Author Organization [facility] Address [address] [place] [address] Care Team Providers Name Role Phone Meredith Rapp MD Primary Care Provider Reason for Visit Reason Comments Other Encounter Details Date Type Department Care Team Description 10/18/2016 Refill [facility] Darrian Hernandez MD Other Rheumatology & Immunology - [address] [place] [address] [address] [place], [place] [phone] [place] [phone] (Wo rk) Social History Tobacco Use Types [...] a physical, mental, or emotional condition, No 04/17/2016 does this person have difficulty doing errands alone such as visiting a doctor's office or shopping? Cognitive Status Response Date of Assessment Because of a physical, mental, or emotional condition, No 04/17/2016 does this person have serious difficulty concentrating, remembering, or making decisions? documented as of this encounter Ordered Prescriptions Prescription Sig Dispensed Refills Start Date End Date methotrexate 2.5 mg TAKE 7 TABLETS ONCE 91 Tab 1 017 11/12/2016 tablet A WEEK documented in this encounter Plan of Treatment Upcoming Encounters Date Type Specialty Care Team Description 02/28/2022 Office Visit Rheumatology Harsh Malloy, INFORMATION TECHNOLOGY SECURITY ANALYST [address] [place] [address] [facility], [facility], Level [address] [place], [place] [phone] (Wo rk) documented as of this encounter Visit Diagnoses Not on filedocumented in this encounter Discontinued Medications Medication Sig Discontinue Reason Start Date End Date methotrexate 2.5 mg tablet Take 7 Tabs by Reorder 04/17/2016 10/18/2016 mouth once a week. documented as of this encounter Care Teams Compliance Professional Relationship Specialty Start Date End Date Meredith Rapp MD PCP - General 08/09/10 08/04/18 [address] [place] [address] documented as of this encounter
--- OUTSIDE RECORDS SUMMARY | 2022-02-08 01:52 | XMS_ITS | Encounter Summary ---
:[address] [facility] Address [address] [place] [address] Care Team Providers Name Role Phone Meredith Rapp MD Primary Care Provider Reason for Visit Reason Comments Joint Pain minimal; stiffness in right hand Encounter Details Date Type Department Care Team Description 10/12/2012 Office Visit [facility] [place] [facility] Crispin Phillips Psor iasis with Rheumatology & MD arthropathy Immunology - [address] ([facility] ) (Primary [address]) [address] [place] [address] [address], [place] [address] (Wo rk) Social History Tobacco Use Types Packs/Day Years Used Date Never Smoker Smokeless Tobacco: Never Used Alcohol Use Standard Drinks/Week Comments No 0 (1 standard drink = 0.6 oz pure alcoho l) Sex Assigned at Date Recorded Female 06/29/2019 10:58 EST documented as of this encounter Last Filed Vital Signs Vital Sign Reading Time Taken Comments Blood Pressure 134/80 10/12/2012 1041 EDT Pulse 60 10/12/2012 1041 EDT Temperature - - Respiratory Rate - - Oxygen Saturation - - Inhaled Oxygen Concentration - - Weight 65.8 kg (145 lb) 10/12/2012 1041 EDT Height 165.7 cm (5' 5.25) 10/12/2012 1041 EDT Body Mass Index 23.94 10/12/2012 1041 EDT documented in this encounter Patient Instructions Patient InstructionsCrispin Phillips MD - 10/12/2012 10:59 EDT Continue same medications Get labs every 2-3 months documented in this encounter Progress Notes Crispin Phillips MD - 10/12/2012 1049 EDT Images from the original note were not included. Division of Rheumatology and Clinical Immunology Chief Complaint Patient presents with ??? Joint Pain minimal; stiffness in right hand HPI: Patient here for followup of psoriatic arthritis. We were limited with regard to maximizing methotrexate due to elevated liver enzymes. She was started on Enbrel at last visit. This helped quite abit. She is feeling much better. With the exception of her scalp her psoriasis rash is also improved. She has only minimal right hand stiffness. She denies any injection site reactions or infections onthe Enbrel. Current Outpatient Prescriptions Medication Sig Dispense Refill ??? methotrexate 2.5 mg tablet Take by mouth once a week. 6 Tabs once weekly ??? folic acid (FOLVITE) 1 mg tablet take 1 tablet by mouth once daily 90 Tab 3 ??? Etanercept (ENBREL SURECLICK) 50 mg/mL (0.98 mL) PnIj Inject 50 mg into the skin once a week. 12Pen 1 ??? loratadine-pseudoephedrine (CLARITIN-D 24 HOUR) 10-240 mg per tablet Take 1 Tab by mouth daily as needed. ??? Multivitamins with Minerals Tab Take 1 Tab by mouth daily. ??? naproxen (NAPROSYN) 500 mg tablet Take 1 Tab by mouth 2 times daily as needed for Pain. Take with food first 60 Tab 11 ??? clobetasol (TEMOVATE) 0.05 % external solution Apply topically twice a day to scalp. Do not apply to face, armpit or groin. 50 mL 1 ??? Salicylic Acid 6-6 % KtSG Topically once daily to affected areas 1 Bottle 11 ??? acetaminophen (TYLENOL) 500 mg tablet Take 1,000 mg by mouth every 6 hours as needed. ??? atenolol (TENORMIN) 50 mg tablet Take 50 mg by mouth daily. ??? triamcinolone (KENALOG) 0.1 % cream Apply topically 2 times daily as needed. Allergies include: Asa Past Medical History Diagnosis Date ??? Allergy ??? Psoriasis ??? Migraine ??? Abnormal Pap smear in remote past ??? Hyperthyroidism history of this, now resolved ??? Hypertension ??? Arthritis Past Surgical History Procedure Date ??? Tubal ligation ??? Tubal ligation [...] Smokeless tobacco: Never Used ??? Alcohol Use: No ??? Drug Use: No ??? Sexually Active: Not on file Other Topics Concern ??? Not on file Social History Narrative ??? No narrative on file REVIEW OF SYSTEMS: Yes No Yes No Fever x Joint pain x Fatigue x Muscle pain x Night sweats x Morning stiffness x Weight change x If yes, duration Mins. only Gain or loss? Loss~30 Numbness/tingling x Eye discomfort x Headaches x [...] x Hair Loss x PHYSICAL EXAMINATION: BP 134/80 Pulse 60 Ht 165.7 cm (65.25) Wt 65.772 kg (145 lb) BMI 23.94 kg/m2 Skin: Slight scaling right occiput. No rash on elbows. LABS From outside hospital October 01, 2012 showed normal CBC and normal comprehensive metabolic panel. No visits with results within 3 Month(s) from this visit. Latest known visit with results is: Phlebotomy Only on 07/08/2012 Component Date Value ??? Potassium 07/08/2012 4.4 ??? Sodium 07/08/2012 141 ??? Chloride 07/08/2012 102 ??? CO2 07/08/2012 26 ??? Total Alkaline Phosphata* 07/08/2012 63 ??? Bilirubin, Total 07/08/2012 0.9 ??? AST 07/08/2012 35 ??? ALT 07/08/2012 51 ??? Albumin 07/08/2012 4.4 ??? Total Protein 07/08/2012 6.9 ??? Creatinine 07/08/2012 0.77 ? ? GFR, Calculated 07/08/2012 >60 ??? BUN 07/08/2012 12 ??? Calcium 07/08/2012 9.3 ??? Calculated Calcium 07/08/2012 9.3 ??? Glucose, Serum 07/08/2012 84 ??? Fasting? 07/08/2012 Unknown ??? Hep B Core Ab 07/08/2012 Negative ??? Hepatitis B Surface Ab 07/08/2012 Negative ? ? HBs Antibody, Quant 07/08/2012 <5.0 ??? Hepatitis B Surface Ag 07/08/2012 Negative ??? Hepatitis C Ab 07/08/2012 Negative ??? Sed. Rate Westergren 07/08/2012 4 ??? WBC 07/08/2012 6.97 ??? RBC 07/08/2012 4.57 ??? Hemoglobin 07/08/2012 15.2 ??? HCT 07/08/2012 43.9 ??? MCV 07/08/2012 96 ??? MCH 07/08/2012 33.3 ??? MCHC 07/08/2012 34.7 ??? PLT 07/08/2012 249 ??? RDW-CV 07/08/2012 13.7 ??? Neutrophils 07/08/2012 66.9 ??? Lymphocytes 07/08/2012 21.7 ??? Monocytes 07/08/2012 8.8 ??? Eosinophils 07/08/2012 1.7 ??? Basophils 07/08/2012 0.9 ??? ABS Neutrophils 07/08/2012 4.67 ??? ABS Lymphs 07/08/2012 1.51 ??? ABS Monocytes 07/08/2012 0.61 ??? ABS Eosinophils 07/08/2012 0.12 ??? ABS Basophils 07/08/2012 0.06 ??? Type of Diff: 07/08/2012 Automated Diagnosis / Assessment: Psoriatic arthritis, much improved on Enbrel. She still however has 3 active joints and I am a little reluctant to reduce methotrexate because of that. Recommendations/Evaluation: Continue same therapy and regular labs every 2-3 months for now. If foot arthritis subsides consider weaning methotrexate to 5 tablets weekly. Followup in 3 months with MICHAEL Pinedo, and 3 months after that with me. Barriers to learning identified: No Patient verbalizes understanding and agrees with plan Yes . CRISPIN PHILLIPS MD 10/12/2012 10:52 documented in this encounter Plan of Treatment Upcoming Encounters Date Type Specialty Care Team Description 02/28/2022 Office Visit Rheumatology Harsh Malloy, CHIEF OF SAFETY AND PROTECTION [address] [facility], [facility], [address] [place], [place] [address] (Wo rk) documented as of this encounter Visit Diagnoses Diagnosis Psoriasis with arthropathy (HCC) - Prima ry Psoriatic arthropathy documented in this encounter Discontinued Medications Medication Sig Discontinue Reason Start Date End Date methotrexate 2.5 mg tablet Take 9 Tabs by Dose adjustment 2 10/12/2012 mouth once a week. documented as of this encounter Historical Medications This list may reflect changes made after this encounter. Medication Sig Dispensed Refills Start Date End Date methotrexate 2.5 mg tablet Take by mouth once 0 01/12/2013 a week. 6 Tabs once weekly added in this encounter Care Teams Skoog Machine Operator Relationship Specialty Start Date End Date Meredith Rapp MD PCP - General 08/09/10 08/04/18 [address] [place] [address] documented as of this encounter
--- OUTSIDE RECORDS SUMMARY | 2022-02-08 01:52 | XMS_ITS | Encounter Summary ---
:[address] [facility] Address [address] [place] [address] Care Team Providers Name Role Phone Meredith Rapp MD Primary Care Provider Reason for Visit Reason Comments Other Encounter Details Date Type Department Care Team Description 01/07/2014 Refill [facility] Gary Degroot, PA-C Other Rheumatology & Immunology - [address] [facility] [address] [place], [place] [address] [facility] [id number] [place] [address] [phone] Social History Tobacco Use Types Packs/Day Years Used Date Never Smoker Smokeless Tobacco: Never Used Alcohol Use Standard Drinks/Week Comments No 0 (1 standard drink = 0.6 oz pure alcoho l) Sex Assigned at Date Recorded Female 06/29/2019 10:58 EST documented as of this encounter Miscellaneous Notes Telephone Encounter - Sylvie Wynn RN - 01/10/2014 1252 EDT Pt called back to inform us she had labs completed this morning. Called [facility]; Galen will fax labs as soon as they result to [phone] signed by Sylvie Wynn RN at 01/10/2014 12:55 EDTTelephone Encounter - Sylvie Wynn RN - 01/10/2014 0932 EDT Pt has labs done at [facility]; last labs 09/16/13. Standing external orders available until 01/12/14. documented in this encounter Plan of Treatment Upcoming Encounters Date Type Specialty Care Team Description 02/28/2022 Office Visit Rheumatology Harsh Malloy, FINANCIAL PLANNING ADVISER [address] [facility], [facility], [address] [place] [address] (Wo rk) documented as of this encounter Visit Diagnoses Not on filedocumented in this encounter Care Teams Research Intern Relationship Specialty Start Date End Date Meredith Rapp MD PCP - General 08/09/10 08/04/18 [address] [place] [address] documented as of this encounter
--- OUTSIDE RECORDS SUMMARY | 2022-02-08 01:52 | XMS_ITS | Encounter Summary ---
:1970 Author Organization [facility] Address [address] [place] [address] Care Team Providers Name Role Phone Meredith Rapp MD Primary Care Provider Encounter Details Date Type Department Care Team Description 07/08/2012 Phlebotomy Only [facility] Quality Assurance Monitor, Neftali atic arthritis [facility] - [facility] Outpatient Psoriatic arthropathy ([facility]); [address] [facility] Encounter for long-term (cur rent) use of other medications; [place], [place] Elevated live r enzymes; [id number] Other psoriasis [phone] Social History Tobacco Use Types Packs/Day Years Used Date Never Smoker Smokeless Tobacco: Never Used Alcohol Use Standard Drinks/Week Comments No 0 (1 standard drink = 0.6 oz pure alcoho l) Sex Assigned at Date Recorded Female 06/29/2019 10:58 EST documented as of this encounter Plan of Treatment Upcoming Encounters Date Type Specialty Care Team Description 02/28/2022 Office Visit Rheumatology Harsh Malloy, INSTRUMENTATION ENGINEERING TECHNICIAN 111 [facility], [facility], [address] [place], [place] [address] (Wo rk) documented as of this encounter Procedures Procedure Name Priority Date/Time Associated Comments Diagnosis HEPATITIS C AB W Routine 07/08/2012 10:18 Encounter for Result s for this REFLEX TO HCV RNA BY EDT long-term (current) procedure are in PCR use of other the results medications section. Psoriatic arthritis ([facility] Other psoriasis HEPATITIS B CORE Routine 07/08/2012 10:18 Psoriatic arthritis Results for this ANTIBODY (TOTAL) EDT ([facility]) procedure are in Other psoriasis the results Encounter for section. long-term (current) use of other medications DIFFERENTIAL Routine 07/08/2012 10:18 Results for this EDT procedure are i n the results section. HEPATITIS B SURFACE Routine 07/08/2012 10:18 Psoriatic arthrit is Results for this ANTIBODY EDT ([facility]) procedure are in Other psoriasis the results Encounter for section. long-term (current) use of other medications HEPATITIS B SURFACE Routine 07/08/2012 10:18 Psoriatic arthrit is Results for this ANTIGEN EDT ([facility]) procedure are in Other psoriasis the results Encounter for section. long-term (current) use of other medications SED RATE Routine 07/08/2012 10:18 Psoriatic arthritis Resu lts for this EDT ([facility]) procedure are in Other psoriasis the results section. COMPLETE BLOOD COUNT Routine 07/08/2012 10:18 Res ults for this EDT procedure are i n the results section. COMPLETE BLOOD COUNT Routine 07/08/2012 10:18 Psoriatic arthri tis AND DIFFERENTIAL EDT ([facility]) COMPREHENSIVE Routine 07/08/2012 10:18 Psoriatic arthritis Res ults for this METABOLIC PANEL (CMP) EDT ([facility]) proced ure are in the results section. documented in this encounter Results DIFFERENTIAL (07/08/2012 10:18 EDT) Pathologist Sig nature Neutrophils 66.9 45.5 - 79.7 % [facility] Lymphocytes 21.7 15.0 - 46.8 % [facility] Monocytes 8.8 1.8 - 12.0 % [facility] Eosinophils 1.7 0.6 - 6.9 % [facility] Basophils 0.9 0.2 - 1.4 % [facility] ABS Neutrophils 4.67 2.20 - 8.85 K/cmm [facility] ABS Lymphs 1.51 1.09 - 3.30 K/cmm [facility] ABS Monocytes 0.61 0.1 - 0.8 K/cmm [facility] ABS Eosinophils 0.12 0.03 - 0.61 K/cmm [facility] ABS Basophils 0.06 0.01 - 0.11 K/cmm [facility] Type of Diff: Automated [facility] Specimen Performing Organization Address City/[facility]/ZIP Code Phon e Number [facility] [address] [place] [address] SERVICES [facility] [address] [place] [address] HEMAGRAM (07/08/2012 10:18 EDT) Pathologist Sig nature WBC 6.97 4.0 - 12.4 K/cmm [facility] RBC 4.57 3.86 - 5.04 M/cmm [facility] Hemoglobin 15.2 11.6 - 15.2 gm/dl [facility] HCT 43.9 34.9 - 44.4 % [facility] MCV 96 81 - 98 fl [facility] MCH 33.3 26.7 - 33.3 pg [facility] MCHC 34.7 32.1 - 35.9 gm/dl [facility] PLT 249 141 - 320 K/cmm [facility] RDW-CV 13.7 11.7 - 14.6 % [facility] Specimen Performing Organization Address [facility]/ZIP Code Phon e Number [facility] [address] [place] [address] SERVICES [facility] [address] [place] [address] SED. RATE:GARRYERGREN (07/08/2012 10:18 EDT) Pathologist Sig nature Sed. Rate Westergren 4 0 - 20 mm/hr [facility] Specimen Blood specimen (specimen) Performing Organization Address City/[facility]/ZIP Code Phon e Number [facility] [address] [place] [address] SERVICES [facility] [address] [place] [address] HEPATITIS C ANTIBODY (07/08/2012 10:18 EDT) Pathologist Sig nature Hepatitis C Ab NegativeComment: [facility] Reference Range: Negative Specimen Blood specimen (specimen) Performing Organization Address City/[facility]/ZIP Code Phon e Number [facility] [address] [place] [address] SERVICES [facility] [address] [place] [address] HEPATITIS B SURFACE ANTIGEN (07/08/2012 10:18 EDT) Hepatitis B Surface NegativeComment: [facility] Ag Reference Range: Negative Specimen Blood specimen (specimen) Performing Organization Address [facility] Phon e Number [facility] [address] [place] [address] SERVICES [facility] [address] [place] [address] HEPATITIS B SURFACE ANTIBODY (07/08/2012 10:18 EDT) Hepatitis B Surface Negative [facility] Ab Comment: Reference Range: Unvaccinated: ??Negative Vaccinated: ??Positive HBs Antibody, Quant <5.0 mIU/mL [facility] Comment: Patient is presumed to not be immune to infection with HBV. Reference Range: Positive: >=12.0 mIU/mL Indeterminate: >=5.0 to <12.0 mIU/mL Negative: <5.0 mIU/mL Specimen Blood specimen (specimen) Performing Organization Address [facility] Phon e Number [facility] [address] [place] [phone] SERVICES [facility] [address] [place] [phone] HEPATITIS B CORE ANTIBODY (07/08/2012 10:18 EDT) Hep B Core Ab Negative [facility] Comment: Reference Range: ??Negative Interpretation depends on clinical setting. Specimen Blood specimen (specimen) Performing Organization Address [facility] Phon e Number [facility] [address] [place] [address] SERVICES [facility] [address] [place], [place] [phone] COMPREHENSIVE METABOLIC PANEL (CMP) (07/08/2012 10:18 EDT) Pathologist [facility] Potassium 4.4 3.5 - 5.0 mEq/L [facility] Sodium 141 136 - 145 mEq/L [facility] Chloride 102 96 - 110 mEq/L [facility] CO2 26 24 - 32 mEq/L [facility] Total Alkaline 63 38 - 126 U/L [facility] Phosphatase Bilirubin, Total 0.9 0.2 - 1.3 mg/dl [facility] AST 35 15 - 46 U/L [facility] ALT 51 9 - 52 U/L [facility] Albumin 4.4 3.4 - 4.9 g/dl [facility] Total Protein 6.9 6.5 - 8.3 g/dl [facility] Creatinine 0.77 0.52 - 1.04 [facility] mg/dl GFR, Calculated >60 >60 [facility] ml/min/1.73m2 BUN 12 10 - 26 mg/dl [facility] Calcium 9.3 8.5 - 10.5 [facility] mg/dl Calculated Calcium 9.3 8.5 - 10.5 [facility] mg/dl Glucose, Serum 84 70 - 100 mg/dl [facility] Fasting? Unknown [facility] Specimen Blood specimen (specimen) Performing Organization Address City/State/ZIP Code Phon e Number [facility] [address] [place] [address] SERVICES [facility] [address] [place] [address] documented in this encounter Visit Diagnoses Diagnosis Psoriatic arthritis (HCC) Psoriatic arthropathy Psoriatic arthropathy (HCC) Psoriatic arthropathy Encounter for long-term (current) use of other medications Elevated liver enzymes Other nonspecific abnormal serum enzyme levels Other psoriasis documented in this encounter Orders Lab Orders Without Results Count Last Ordered Date Fir st Ordered Date COMPREHENSIVE METABOLIC PANEL (CMP) 1 07/08/2012 HEMAGRAM AND DIFFERENTIAL 1 07/08/2012 documented in this encounter Care Teams Leather Whitener Relationship Specialty Start Date End Date Meredith Rapp MD PCP - General 08/09/10 08/04/18 [address] [place] [address] documented as of this encounter
--- OUTSIDE RECORDS SUMMARY | 2022-02-08 01:52 | XMS_ITS | Encounter Summary ---
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[facility]) (Primary Dx); Rheumatology & M, GUNJAN Encounter for long-term (current) use of other medications Immunology - Main [address] REHANA PHILIP [facility] [address] [place], [place] [id number] Social History Tobacco Use Types Packs/Day Years Used Date Never Smoker Smokeless Tobacco: Never Used Alcohol Use Standard Drinks/Week Comments No 0 (1 standard drink = 0.6 oz pure alcoho l) Sex Assigned at Date Recorded Female 06/29/2019 10:58 EST documented as of this encounter Last Filed Vital Signs Vital Sign Reading Time Taken Comments Blood Pressure 132/80 01/12/2013 0941 EDT Pulse 58 01/12/2013 0941 EDT Temperature - - Respiratory Rate - - Oxygen Saturation - - Inhaled Oxygen Concentration - - Weight - - Height - - Body Mass Index - - documented in this encounter Patient Instructions Patient InstructionsStTabatha hendrickson PA - 01/12/2013 10:05 EDT Decrease Methotrexate to 5 tabs once weekly. Please give us a call if symptoms flare. Continue all other medications. Remember to have your labs checked every 2-3 months. Due again at the end of February. Follow up with Dr. Hernandez in 3 months (as previously scheduled). documented in this encounter Ordered Prescriptions Prescription Sig Dispensed Refills Start Date End Date methotrexate 2.5 mg tablet Take 5 Tabs by 20 Tab 5 01/1204/14/2013 mouth once a week. documented in this encounter Progress Notes Tabatha Pinedo PA - 01/12/2013 0943 EDT Images from the original note were not included. Division of Rheumatology and Clinical Immunology Chief Complaint Patient presents with ??? Follow-up has been doing well since last visit HPI: 42 year old female here for follow up of psoriatic arthritis. Generally followed by Dr. Hernandez or myself. Last seen in clinic ~3 months ago. Continues to do well on Enbrel (started earlier this year) and Methotrexate. No joint flares since last visit. Even her psoriasis is almost gone at this point. Has very little on her scalp - almost can't even tell it's there. Affected joints: Denies current joint pain or swelling. No significant AM stiffness. Pretty much everything is great. It's nice to be able to move again. 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 cetirizine (ZYRTEC) 10 mg tablet Take 10 mg by mouth daily. ??? FLUTICASONE PROPIONATE (FLUTICASONE INHL) Inhale as directed daily. ??? methotrexate 2.5 mg tablet Take by mouth once a week. 6 Tabs once weekly Tolerates ok without reported side effects. Denies oral ulcers or GI upset. ??? betamethasone dipropionate 0.05 % lotion Apply topically 2 times daily. Do not apply to face, armpit or groin. 1 Bottle 3 ??? calcipotriene (DOVONEX) 0.005 % cream Apply topically once to twice daily to affected areas. 60 g 11 ??? folic acid (FOLVITE) 1 mg tablet take 1 tablet by mouth once daily 90 Tab 3 ??? Etanercept (ENBREL SURECLICK) 50 mg/mL (0.98 mL) PnIj Inject 50 mg into the skin once a week. Tolerating ok without reported side effects. No recent infections. 12 Pen 1 ??? loratadine-pseudoephedrine (CLARITIN-D 24 HOUR) 10-240 mg per tablet Take 1 Tab by mouth daily as needed. ??? Multivitamins with Minerals Tab Take 1 Tab by mouth daily. ??? naproxen (NAPROSYN) 500 mg tablet Take 1 Tab by mouth 2 times daily as needed for Pain. Take with food first As needed. Rarely at this point. Sometimes after increased activity. 60 Tab 11 ??? clobetasol (TEMOVATE) 0.05 % external solution Apply topically twice a day to scalp. Do not apply to face, armpit or groin. 50 mL 1 ??? Salicylic Acid 6-6 % KtSG Topically once daily to affected areas 1 Bottle 11 ??? acetaminophen (TYLENOL) 500 mg tablet Take 1,000 mg by mouth every 6 hours as needed. Not very often at all. ??? atenolol (TENORMIN) 50 mg tablet Take [...] Mother History Social History ??? 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 Smoking status: Never Smoker ??? Smokeless tobacco: Never Used ??? Alcohol Use: No ??? Drug Use: No REVIEW OF SYSTEMS: Yes No Yes No [...] w/cold x Hair Loss x PHYSICAL EXAMINATION: Constitutional: Pleasant, well developed, well nourished female in no acute distress. BP 132/80 Pulse 58 HEENT: PERRL, EOM's intact, conjuctiva clear, no occular inflammation. Oropharynx clear, throat normal without erythema or exudate, no oral ulcers. No lymphadenopathy. RESPIRATORY: Clear to auscultation bilaterally; no adventitious sounds. CARDIOVASCULAR: Regular rate and rhythm, normal S1S2, no murmurs/gallops/rubs. No pedal edema. SKIN: Psoriasis limited to scalp - very minimal. NEUROLOGIC: Mental status normal. Gait normal without assistive device. Moves on/off exam table independently. Muscle strength intact and symmetric throughout. MUSCULOSKELETAL: A complete msk exam including bilateral upper and lower extremities was done and was normal except for abnormal findings shown on homonculus. LABS: Obtained externally 12/17/12 - CBC with diff and CMP normal Imaging: None recent Diagnosis / Assessment: Psoriatic arthritis. Improved on Enbrel. Plan to slowly taper Methotrexate to lowest effective dose. Psoriasis. Also improved on Enbrel. Continue same. Encounter for custodial use of medication. Labs up to date. CBC, creatinine, LFTs normal. Recommendations/Evaluation: 1. Decrease Methotrexate to 12.5 mg once weekly. Asked Iris to give us a call if symptoms flare. 2. Continue all other medications including Enbrel 50 mg SC once weekly. 3. Labs (CBCD/CMP) every 2-3 months to monitor for toxicity. Due again at the end of February. 4. Follow up with Dr. Hernandez in 3 months (as previously scheduled). Barriers to learning identified: No Patient verbalizes understanding and agrees with plan: Yes I was directly supervised by Dr. Child who was in the suite and immediately available for the entire time the service was provided. MICHAEL Sahni 01/12/2013 10:25 Attestation statement: Supervising Physician AMBROCIO CHILD MD 01/13/2013 18:24 documented in this encounter Plan of Treatment Upcoming Encounters Date Type Specialty Care Team Description 02/28/2022 Office Visit Rheumatology Harsh Malloy, SWATCH CLERK [address] [facility], [facility], [address] [place], [place] [address] (Wo rk) documented as of this encounter Visit Diagnoses Diagnosis Psoriasis with arthropathy (HCC) - Prima ry Psoriatic arthropathy Encounter for long-term (current) use of other medications documented in this encounter Discontinued Medications Medication Sig Discontinue Reason Start Date End Date methotrexate 2.5 mg Take by mouth once Reorder tablet a week. 6 Tabs once weekly documented as of this encounter Historical Medications This list may reflect changes made after this encounter. Medication Sig Dispensed Refills Start Date End Date FLUTICASONE PROPIONATE Inhale as directed 0 (FLUTICASONE INHL) daily. cetirizine (ZYRTEC) 10 mg Take 10 mg by mouth 0 tablet daily. added in this encounter Care Teams Senior Mobile Developer Relationship Specialty Start Date End Date Meredith Rapp MD PCP - General 08/09/10 08/04/18 [address] [place] [address] documented as of this encounter
--- OUTSIDE RECORDS SUMMARY | 2022-02-08 01:52 | XMS_ITS | Encounter Summary ---
:1970 Author Organization [facility] Address [address] [place] [address] Care Team Providers Name Role Phone Meredith Rapp MD Primary Care Provider Reason for Visit Reason Comments Skin Exam Skin Check Encounter Details Date Type Department Care Team Description 10/12/2012 Office Visit [facility] Derek Fernando Psoriasis (Primary Dermatology - [facility] MD Car Dx) [address] [place] [address] [place] [address] Social History Tobacco Use Types Packs/Day Years Used Date Never Smoker Smokeless Tobacco: Never Used Alcohol Use Standard Drinks/Week Comments No 0 (1 standard drink = 0.6 oz pure alcoho l) Sex Assigned at Date Recorded Female 06/29/2019 10:58 EST documented as of this encounter Patient Instructions Patient InstructionsKeira Manuel MD - 10/12/2012 14:18 EDT For your scalp - Apply the betamethasone lotion daily during the weekdays - Apply the dovonex cream once to twice daily during the weekends (can switch this routine if the plaques improvement - steroid on the weekend, dovonex during the weekdays) documented in this encounter Ordered Prescriptions Prescription Sig Dispensed Refills Start Date End Date calcipotriene (DOVONEX) Apply topically once 60 g 11 08/06/2017 0.005 % cream to twice daily to affected areas. betamethasone Apply topically 2 1 Bottle 3 10/12/201207/27 dipropionate 0.05 % times daily. Do not lotion apply to face, armpit or groin. documented in this encounter Progress Notes Franci Hull - 10/12/2012 1354 EDT Review of Systems Constitutional: Negative for fever, fatigue and unexpected weight change. HENT: Negative for mouth sores. Eyes: Negative for pain. Respiratory: Negative for cough and shortness of breath. Cardiovascular: Negative for chest pain and palpitations. Gastrointestinal: Negative for nausea, vomiting, abdominal pain, diarrhea, constipation and blood instool. Genitourinary: Negative for dysuria, frequency and hematuria. Musculoskeletal: Positive for joint swelling, arthralgias and muscle stiffness in the morning. Negative for myalgias. Skin: Positive for rash. Neurological: Negative for numbness and headaches. Endo/Heme/Allergies: Does not bruise/bleed easily. Psychiatric/Behavioral: Negative for disturbed wake/sleep cycle. The patient is not nervous/anxious. Franci Hull 10/12/2012 13:55 Derek Fernando MD Keira Javier MD - 10/12/2012 1351 EDT Dermatology Outpatient Visit Note SUBJECTIVE Chief Complaint Patient presents with ??? Skin Exam Skin Check Problem List 1. Psoriasis, plaque type with psoriatic arthritis - on Enbrel, methotrexate 15 mg per week (6 tablets), clobetasol solution History of Present Illness: Nina Boothe is a 42 y.o. female with psoriasis and psoriatic arthritis who presents to clinic today for yearly exam. Last seen in clinic 09/2011, at which time the patient was recommended to continue on methotrexate, as well as starting clobetasol solution for stubborn psoriatic plaques over the scalp. Since then her methotrexate has been decreased to 6 tablets weekly (down from 9), and she has started on Enbrel in the last three months. On this combination she reports that the cutaneouscomponent of her psoriasis has been mostly resolved, with the exception of her scalp. She has stopped using the clobetasol solution many months ago, because it did not seem to be helping. She does endorse frequently picking or scrubbing the scale of the plaques on her head, but denies scratching or other trauma to the scalp. She had intralesional triamcinolone injection injections for her scalp at her last visit, but did not see much improvement. Her joint pain is also well controlled on Enbrel. Shehas no other concerns today. Review of Systems: Pertinent positives as noted above in progress notes section and all others are negative. Pt's past medical, family, and social history have been reviewed as above. Meds: Pt has a current medication list which includes the following prescription(s): methotrexate, folic acid, etanercept, loratadine- pseudoephedrine, multivitamins with minerals, naproxen, clobetasol,salicylic acid, acetaminophen, atenolol, and triamcinolone. OBJECTIVE VS: There were no vitals taken for this visit. Physical Exam: This is a pleasant, alert and oriented, well-nourished, well-groomed female in no acute distress. She has Henry type III skin. Cutaneous examination was done of the scalp, eyelids, nose, cheeks, forehead, external ears, lips and chin, neck, back, chest, abdomen, and extremities. Along the inferior occipital scalp there are a few minimally scaly, well-demarcated pink plaques. There were no lesions worrisome for malignancy on this exam. The remainder of the exam of other sites examinedis normal. Labs: CBC: Lab Results Component Value Date WBC 6.97 07/08/2012 RBC 4.57 07/08/2012 HGB 15.2 07/08/2012 HCT 43.9 07/08/2012 MCV 96 07/08/2012 MCH 33.3 07/08/2012 MCHC 34.7 07/08/2012 PLT 249 07/08/2012 NEUTROABS 4.67 07/08/2012 SEDRATE 4 07/08/2012 BMP: Lab Results Component Value Date NA 141 07/08/2012 K 4.4 07/08/2012 CL 102 07/08/2012 CO2 26 07/08/2012 BUN 12 07/08/2012 CREATININE 0.77 07/08/2012 CALCIUM 9.3 07/08/2012 LABALBU 4.4 07/08/2012 LFT: Lab Results Component Value Date TBIL 0.9 07/08/2012 ALKPHOS 63 07/08/2012 AST 35 07/08/2012 ALT 51 07/08/2012 ASSESSMENT 1. Plaque-type psoriasis with psoriatic arthritis - 1% BSA involvement (scalp) on Enbrel and methotrexate 15 mg weekly PLAN 1. Patient education given on the above assessments. 2. Agree with treatment of psoriasis and arthritis on methotrexate and Enbrel, which are managed by her Bonus Clerk Dr. Hernandez. 3. For scalp psoriasis, discussed treatment options including topical steroids, intralesional triamcinolone injection, calcipotriene, derma-smoothe, or increased dose of methotrexate (may not be an option given history of elevated LFTs on higher doses in past). Will start with betamethasone lotion applied daily during the week (60 mL bottle with 3 refills given) and then Dovonex cream applied daily during the weekends (60 g container with 11 refills given). Can alternate this routine if plaques improve. 4. Return to clinic in 1 year, sooner as needed. Keira Manuel MD 10/12/2012 13:51 Attestation Statement: I saw and examined the patient with the resident/fellow. I agree with the findings and plan of care documented in the resident's/fellow's note. DEREK FERNANDO MD Dermatology [facility] documented in this encounter Miscellaneous Notes Scanned Note-Null - LARRIMAN HELPER, SCAN 2 - 10/16/2012 1717 EDT documented in this encounter Plan of Treatment Upcoming Encounters Date Type Specialty Care Team Description 02/28/2022 Office Visit Rheumatology Harsh Malloy, ELBERT [address] [facility], [facility], [address] [place] [phone] (Wo rk) documented as of this encounter Visit Diagnoses Diagnosis Psoriasis - Primary Other psoriasis documented in this encounter Care Teams Engraver Apprentice Decorative Relationship Specialty Start Date End Date Meredith Rapp MD PCP - General 08/09/10 08/04/18 [address] [place] [address] documented as of this encounter
--- OUTSIDE RECORDS SUMMARY | 2022-02-08 01:52 | XMS_ITS | Encounter Summary ---
:[address] [facility] Address [address] [place] [address] Care Team Providers Name Role Phone Meredith Rapp MD Primary Care Provider Reason for Visit Reason Onset Date Comments Medications Refill 04/02/2016 Encounter Details Date Type Department Care Team Description 04/02/2016 Refill [facility] Darrian Hernandez MD Medications Refill Rheumatology & Immunology [address], [address] [place], [place] [id number] [place] [address] [phone] (Wo rk) Social History Tobacco Use [...] a physical, mental, or emotional condition, No 11/06/2015 does this person have difficulty doing errands alone such as visiting a doctor's office or shopping? Cognitive Status Response Date of Assessment Because of a physical, mental, or emotional condition, No 11/06/2015 does this person have serious difficulty concentrating, remembering, or making decisions? documented as of this encounter Ordered Prescriptions Prescription Sig Dispensed Refills Start Date End Date naproxen (NAPROSYN) 500 Take 1 Tab by mouth 2 180 Tab 3 1 06/04/2015 05/14/2017 mg tablet times daily with breakfast and dinner. fluocinonide (LIDEX) Apply daily to rash 1 Tube 3 201505/06/2017 0.05 % ointment if needed documented in this encounter Miscellaneous Notes Telephone Encounter - Etelvina Hernandez MD - 04/03/2016 1429 EST Both Rx signed elephone Encounter - Maria Esther Aguilar RN - 04/02/2016 0828 EST From: Nina Boothe To: Etelvina Hernandez MD Sent: 04/02/2016 4:57 EST Subject: Medication Renewal Request Original authorizing provider: MD Nina Turner would like a refill of the following medications: naproxen (NAPROSYN) 500 mg tablet [Etelvina Hernandez MD] Preferred pharmacy: [facility] - [address] Comment: The rash is back on my elbows. None of my current prescriptions are working, but I found a tube of an older prescription that has been working. Floucinonide The tube is about empty....can this be re-prescribed? documented in this encounter Plan of Treatment Upcoming Encounters Date Type Specialty Care Team Description 02/28/2022 Office Visit Rheumatology Harsh Malloy NP [address] [facility], [facility], [address] [place], [place] [address] (Wo rk) documented as of this encounter Visit Diagnoses Not on filedocumented in this encounter Discontinued Medications Medication Sig Discontinue Reason Start Date End Date naproxen (NAPROSYN) 500 Take 1 Tab by mouth 2 Reorder 01/05/20 16 04/03/2016 mg tablet times daily with breakfast and dinner. documented as of this encounter Care Teams Apricot Washer Relationship Specialty Start Date End Date Meredith Rapp MD PCP - General 08/09/10 08/04/18 [address] [place] [address] documented as of this encounter
--- OUTSIDE RECORDS SUMMARY | 2022-02-08 01:52 | XMS_ITS | Encounter Summary ---
:1970 Author Organization [facility] Address [address] [place] [address] Care Team Providers Name Role Phone Meredith Rapp MD Primary Care Provider Encounter Details Date Type Department Care Team Description 07/12/2015 Orders Only [facility] Marisol Tejeda RN Rheumatology & Immunology - [address] [phone] Social History Tobacco Use Types Packs/Day Years [...] a physical, mental, or emotional condition, No 04/18/2015 does this person have difficulty doing errands alone such as visiting a doctor's office or shopping? Cognitive Status Response Date of Assessment Because of a physical, mental, or emotional condition, No 04/18/2015 does this person have serious difficulty concentrating, remembering, or making decisions? documented as of this encounter Ordered Prescriptions Prescription Sig Dispensed Refills Start Date End Date folic acid (FOLVITE) 1 mg Take 1 Tab by mouth 90 Tab 3 0 07/12/2015 07/08/2016 tablet daily. documented in this encounter Plan of Treatment Upcoming Encounters Date Type Specialty Care Team Description 02/28/2022 Office Visit Rheumatology Harsh Malloy, ELBERT [address] [facility], [address] [place], [place] [address] (Wo rk) documented as of this encounter Visit Diagnoses Not on filedocumented in this encounter Discontinued Medications Medication Sig Discontinue Reason Start Date End Date folic acid (FOLVITE) 1 mg Take 1 Tab by mouth Reorder 10/22/19 15 07/12/2015 tablet daily documented as of this encounter Care Teams [employer] Staff Officer Relationship Specialty Start Date End Date Meredith Rapp MD PCP - General 08/09/10 08/04/18 [address] [place] [address] documented as of this encounter
--- OUTSIDE RECORDS SUMMARY | 2022-02-08 01:52 | XMS_ITS | Encounter Summary ---
:1970 Author Organization [facility] Address [address] [place] [address] Care Team Providers Name Role Phone Meredith Rapp MD Primary Care Provider Reason for Visit Reason Comments Medication Management doing well Encounter Details Date Type Department Care Team Description 10/21/2014 Office Visit [facility] Tabatha Degroot sis with arthropathy ([facility]) (Primary Dx); Rheumatology & M, PA-C Encounter for long-term (current) use of other medications Immunology - Main [address] [facility] [address] [place], [place] [id number] Social History Tobacco Use Types Packs/Day Years [...] Sign Reading Time Taken Comments Blood Pressure 158/83 10/21/2014 1348 EDT Pulse 61 10/21/2014 1348 EDT Temperature - - Respiratory Rate 18 10/21/2014 1348 EDT Oxygen Saturation - - Inhaled Oxygen Concentration - - Weight 66.2 kg (146 lb) 10/21/2014 1348 EDT Height 166.4 cm (5' 5.5) 10/21/2014 1348 EDT Body Mass Index 23.93 10/21/2014 1348 EDT documented in this encounter Functional Status [...] decisions? documented as of this encounter Discharge Diagnoses Diagnosis 696.0 PSORIATIC ARTHROPATHY[ICD-9-CM] V58.69 [facility] USE MEDICATN[ ICD-9-CM] documented in this encounter Patient Instructions Patient InstructionsTabatha Degroot PA - 10/21/2014 14:22 EDT No changes today. Continue your same medications including Enbrel and Methotrexate. Remember to have your labs checked every 3-4 months to monitor your medications. Due again in November. Follow up with Dr. Hernandez in 6 months, sooner if needed. documented in this encounter Ordered Prescriptions Prescription Sig Dispensed Refills Start Date End Date folic acid (FOLVITE) 1 mg Take 1 Tab by mouth 90 Tab 3 0 10/21/2014 07/12/2015 tablet daily documented in this encounter Progress Notes Tabatha Degroot PA - 10/21/2014 1408 EDT Images from the original note were not included. Division of Rheumatology and Clinical Immunology Chief Complaint Patient presents with ??? Medication Management doing well HPI: Ms. Nina Boothe is a 44 y.o. female here for follow up of psoriatic arthritis. Changes since last visit: No medication changes. Remains on Enbrel and Methotrexate. Doing well. No major flares. Affected joints: Denies current joint or swelling. No significant AM stiffness. No active psoriasis (no flares in over a year). Physical activity: Classes at the gym 8 x per week (twice daily 3 days per week), also walks every day at lunch Functional Limitations: None identified Current Outpatient Prescriptions [...] to affected areas. 60 g 11 ??? cetirizine (ZYRTEC) 10 mg tablet Take [...] Etanercept (ENBREL SURECLICK) 50 mg/mL (0.98 mL) pen injector Inject 50 mg into the skin once a week. Tolerates ok without reported side effects. No recent infections. 12 Pen 3 ??? FLUTICASONE PROPIONATE (FLUTICASONE INHL) Inhale as directed daily. ??? folic acid (FOLVITE) 1 mg tablet take 1 tablet by mouth once daily 90 Tab 3 ??? loratadine-pseudoephedrine (CLARITIN-D 24 HOUR) 10-240 mg per tablet Take 1 Tab by mouth daily as needed. ??? methotrexate 2.5 mg tablet Take 5 Tabs by mouth once a week. Tolerates ok without reported side effects. 60 Tab 3 ??? montelukast (SINGULAIR) 10 mg tablet Take 10 mg by mouth daily ??? Multivitamins with Minerals Tab Take 1 Tab by mouth daily. ??? naproxen (NAPROSYN) 500 mg tablet take 1 tablet by mouth twice a day with food if needed for pain As needed. Infrequent. 180 Tab 1 ??? Salicylic Acid 6-6 [...] ??? Psoriasis Sister ??? Psoriasis Mother History Substance Use Topics ??? Smoking status: Never Smoker ??? Smokeless tobacco: Never Used ??? Alcohol Use: Yes Comment: About 2 beers a month if that REVIEW OF SYSTEMS: As documented by Nurses/MAs during this visit and reviewed by me (TAB). PHYSICAL EXAMINATION: Constitutional: Pleasant, well developed, well nourished female in no acute distress. BP 158/83 Pulse 61 Resp 18 Ht 166.4 cm (65.5) Wt 66.225 kg (146 lb) BMI 23.92 kg/m2 HEENT: PERRL, EOM's intact, no occular inflammation. Oropharynx clear, throat normal without erythema or exudate, no oral ulcers. No lymphadenopathy. RESPIRATORY: Clear to auscultation bilaterally; no adventitious sounds. CARDIOVASCULAR: Regular rate and rhythm, normal S1S2, no murmurs/gallops/rubs. SKIN: No rashes or active psoriatic lesions identified. NEUROLOGIC: Mental status normal. Gait normal without assistive device. Moves on/off exam table independently. Muscle strength not formally assessed but moving all extremities against gravity. MUSCULOSKELETAL: A complete msk exam including bilateral upper and lower extremities was done and was normal except for abnormal findings shown on homonculus. RAPID3 Score: As documented by Nurses/MAs during this visit and reviewed by me (TAB). LABS: Obtained externally 08/25/14 - CBC with diff: Essentially normal CMP: Mild hypocalcemia (8.1), otherwise normal Imaging: None recent Impression/Plan: Psoriatic arthritis. Doing well on Enbrel and Methotrexate (previous taper attempt unsuccessful). Continue same. Psoriasis. Good control on current regimen. Encounter for mcc use of medication. Labs up to date. CBC with diff unremarkable. Renal and hepatic function normal. Patient Instructions No changes today. Continue your same medications including Enbrel and Methotrexate. Remember to have your labs checked every 3-4 months to monitor your medications. Due again in November. Follow up with Dr. Hernandez in 6 months, sooner if needed. Barriers to learning identified: No Patient verbalizes understanding and agrees with plan: Yes I was supervised by Dr. Flores who was in the suite and immediately available for the entire time the service was provided. MICHAEL Riggs 10/21/2014 14:09 I was available in the office suite at the time of the visit for consultation if needed. Stuart Flores MD 10/21/2014 China Gurrola - 10/21/2014 1352 EDT REVIEW OF SYSTEMS: Yes No Yes No Fever X Joint pain X Weight gain or loss pounds (lbs) Duration of AM joint stiffness hours / min Eye pain or dryness X Numbness/tingling X Mouth or nose sores X Heart burn / Nausea X Chest pain X Diarrhea X Shortness of Breath X Blood in stool X Cough X Burning on urination X Skin rash X Hand/Foot color change in cold X RAPID3 SCORE Over the last week were you able to: a. Dress yourself including tying shoelaces / doing buttons? 0 0 = Without ANY difficulty 1 = With SOME difficulty 2 = With MUCH difficulty 3 = UNABLE to do Conversion scale: 1=0.3 2=0.7 3=1.0 4=1.3 5=1.7 6=2.0 7=2.3 8=2.7 9=3.0 10=3.3 11=3.7 12=4.0 13=4.3 14=4.7 15=5.0 16=5.3 17=5.7 18=6.0 19=6.3 20=6.7 21=7.0 22=7.3 23=7.7 24=8.0 25=8.3 26=8.7 27=9.0 28=9.3 29=9.7 30=10 b. Get in and out of bed? 0 c. Lift a full cup or glass to your mouth? 0 d. Walk outdoors on flat ground? 0 e. Wash and dry your entire body? 0 f. Bend down to chicken picker clothing from the floor? 0 g. Turn regular faucets on and off? 0 h. Get in and out of a car, bus, train or airplane? 0 i. Walk two miles or three kilometers, if you wish? 0 j. Participate in recreational activities/sports, if you wish? 0 TOTAL = 0 FUNCTION (FN) (Use conversion scale) = 0 (Use conversion scale above) Get a good night???s sleep? 0 0 = Without ANY difficulty (0.0) 1 = With SOME difficulty (1.1) 2 = With MUCH difficulty (2.2) 3 = UNABLE to do (3.3) Deal with feelings of anxiety or being nervous? 0 Deal with feelings of depression or feeling blue? 0 PAIN (PN) = 0 0-10 PATIENT GLOBAL (PTGE) = 0 0-10 RAPID3 SCORE (FN + PN + PTGE) = 0 0-30 documented in this encounter Plan of Treatment Upcoming Encounters Date Type Specialty Care Team Description 02/28/2022 Office Visit Rheumatology Harsh Malloy NP 111 [facility], [facility], [address] [place], [place] [address] (Wo rk) documented as of this encounter Visit Diagnoses Diagnosis Psoriasis with arthropathy (HCC) - Prima ry Psoriatic arthropathy Encounter for long-term (current) use of other medications documented in this encounter Discontinued Medications Medication Sig Discontinue Reason Start Date End Date cephALEXin (KEFLEX) 500 Take 500 mg by mouth Therapy completed 10/21/2014 mg capsule 4 times daily. folic acid (FOLVITE) 1 take 1 tablet by Reorder 10/25/2013 0 10/21/2014 mg tablet mouth once daily documented as of this encounter Historical Medications This list may reflect changes made after this encounter. Medication Sig Dispensed Refills Start Date End Date montelukast (SINGULAIR) 10 Take 10 mg by mouth 0 mg tablet daily added in this encounter Care Teams Strike Planning Applications Relationship Specialty Start Date End Date Meredith Rapp MD PCP - General 08/09/10 08/04/18 [address] [place] [address] documented as of this encounter
--- OUTSIDE RECORDS SUMMARY | 2022-02-08 01:52 | XMS_ITS | Encounter Summary ---
:1970 Author Organization [facility] Address [address] [place] [address] Care Team Providers Name Role Phone Meredith Rapp MD Primary Care Provider Reason for Visit Reason Comments Other Encounter Details Date Type Department Care Team Description 07/13/2013 Refill [facility] Gary Degroot, PAAltafC Other Rheumatology & Immunology - [address] 111 [facility] [id number] [place] [id number] [phone] Social History Tobacco Use Types Packs/Day Years Used Date Never Smoker Smokeless Tobacco: Never Used Alcohol Use Standard Drinks/Week Comments No 0 (1 standard drink = 0.6 oz pure alcoho l) Sex Assigned at Date Recorded Female 06/29/2019 10:58 EST documented as of this encounter Ordered Prescriptions Prescription Sig Dispensed Refills Start Date End Date methotrexate 2.5 mg take 5 tablets by 20 Tab 1 4 09/16/2013 tablet mouth every week documented in this encounter Plan of Treatment Upcoming Encounters Date Type Specialty Care Team Description 02/28/2022 Office Visit Rheumatology Harsh Malloy, ELBERT [address] [place] [facility], [facility], [address] [place], [place] [address] (Wo rk) documented as of this encounter Visit Diagnoses Not on filedocumented in this encounter Care Teams Clerk Rating Relationship Specialty Start Date End Date Meredith Rapp MD PCP - General 08/09/10 08/04/18 [address] [place] [phone] documented as of this encounter
--- OUTSIDE RECORDS SUMMARY | 2022-02-08 01:52 | XMS_ITS | Encounter Summary ---
:1970 Author Organization [facility] Address [address] [place] [address] Care Team Providers Name Role Phone Meredith Rapp MD Primary Care Provider Reason for Visit Reason Onset Date Comments Medications Refill 02/19/2016 Encounter Details Date Type Department Care Team Description 02/19/2016 Refill [facility] Libertad Shelley RN edications Refill Rheumatology & Immunology - [address] [phone] Social History Tobacco Use Types Packs/Day Years [...] Inject 50 mg into 12 Pen 3 02/19/2016 02/23/2016 SURECLICK) 50 mg/mL (0.98 the skin once a mL) pen injector week. documented in this encounter Plan of Treatment Upcoming Encounters Date Type Specialty Care Team Description 02/28/2022 Office Visit Rheumatology Harsh Malloy, SHIRT BANDER [address] [place] A [facility], [facility], [address] [place], [place] [address] (Wo rk) documented as of this encounter Visit Diagnoses Not on filedocumented in this encounter Discontinued Medications Medication Sig Discontinue Reason Start Date End Date Etanercept (ENBREL Inject 50 mg into Reorder 03/22/201501/27 SURECLICK) 50 mg/mL the skin once a week (0.98 mL) pen injector documented as of this encounter Care Teams Pi/Senior Research Associate Relationship Specialty Start Date End Date Meredith Rapp MD PCP - General 08/09/10 08/04/18 [address] [place] [address] documented as of this encounter
--- OUTSIDE RECORDS SUMMARY | 2022-02-08 01:52 | XMS_ITS | Encounter Summary ---
:1970 Author Organization [facility] Address [address] [place] [address] Care Team Providers Name Role Phone Meredith Rapp MD Primary Care Provider Reason for Visit Reason Onset Date Comments Prior Auth, Medication 02/20/2016 Encounter Details Date Type Department Care Team Description 02/20/2016 Telephone [facility] Tabatha Degroot Pri or Auth, Medication Rheumatology & PA-C Immunology - Main [place] [address] [facility] [phone] [place] [address], [place] [address] Social History Tobacco Use Types Packs/Day Years [...] this encounter Miscellaneous Notes Telephone Encounter - Jossy Fuchs - 02/20/2016 1510 EDT Prior Authorization Approval Medication: Enbrel 50mg/mL (0.98mL) SureClick pen Approved: 02/21/2016 - 02/20/2017 Authorization Number: [id number] Pharmacy: [facility] ([place]) Prior Authorization Submission Process Medication: Enbrel 50mg/mL (0.98mL) SureClick pen Insurance: [place] Date PA Request Received: 02/19/2016 PA Submission Date: 02/21/2016 Submitted by: Jossy Álvarez documented in this encounter Plan of Treatment Upcoming Encounters Date Type Specialty Care Team Description 02/28/2022 Office Visit Rheumatology Harsh Malloy, VOLUNTEER MANAGER 111 [facility], [address] [place], [place] [address] (Wo rk) documented as of this encounter Visit Diagnoses Not on filedocumented in this encounter Care Teams Corporate Real Estate Specialist Relationship Specialty Start Date End Date Meredith Rapp MD PCP - General 08/09/10 08/04/18 [address] [place] [phone] documented as of this encounter
--- OUTSIDE RECORDS SUMMARY | 2022-02-08 01:52 | XMS_ITS | Encounter Summary ---
:1970 Author Organization [facility] Address [address] [place] [address] Care Team Providers Name Role Phone Meredith Rapp MD Primary Care Provider Reason for Visit Reason Onset Date Comments Medications Refill 09/06/2016 Encounter Details Date Type Department Care Team Description 09/06/2016 Refill [facility] Darrian Hernandez MD Medications Refill Rheumatology & Immunology [address], [address] [place], [place] [phone] [place] [address] [phone] (Wo rk) Social History Tobacco Use [...] (ENBREL Inject 50 mg into 12 Pen 1 09/09/2016 02/12/2017 SURECLICK) 50 mg/mL (0.98 the skin once a mL) pen injector week. documented in this encounter Miscellaneous Notes Telephone Encounter - Talisha Loja RN - 09/09/2016 0818 EDT From: Nina Boothe To: Etelvina Hernandez MD Sent: 09/06/2016 16:26 EDT Subject: Medication Renewal Request Original authorizing provider: MD Nina Turner would like a refill of the following medications: Etanercept (ENBREL SURECLICK) 50 mg/mL (0.98 mL) pen injector [Etelvina Hernandez MD] Preferred pharmacy: [facility] - [address] Comment: [facility] let me know that they have been trying to contact the office with a question about my prescription but they have been unable to reach anyone. They are now requiring a brand new prescriptionand will not refill without one. At this time, I have used my last shot and am due again on Friday. documented in this encounter Plan of Treatment Upcoming Encounters Date Type Specialty Care Team Description 02/28/2022 Office Visit Rheumatology Harsh Malloy, COMBINATION SAW OPERATOR 111 [facility], [address] [place], [place] [address] (Wo rk) documented as of this encounter Visit Diagnoses Not on filedocumented in this encounter Discontinued Medications Medication Sig Discontinue Reason Start Date End Date Etanercept (ENBREL Inject 50 mg into Reorder 08/08/201608/26 SURECLICK) 50 mg/mL the skin once a (0.98 mL) pen injector week. documented as of this encounter Care Teams Middle School English Teacher Relationship Specialty Start Date End Date Meredith Rapp MD PCP - General 08/09/10 08/04/18 [address] [place] [address] documented as of this encounter
--- OUTSIDE RECORDS SUMMARY | 2022-02-08 01:52 | XMS_ITS | Encounter Summary ---
:1970 Author Organization [facility] Address [address] [place] [address] Care Team Providers Name Role Phone Meredith Rapp MD Primary Care Provider Reason for Visit Reason Comments Follow-up routine follow-up, doing wel l since last visit Encounter Details Date Type Department Care Team Description 11/06/2015 Office Visit [facility] Tabatha Degroot sis with arthropathy ([facility]) (Primary Dx); Rheumatology & M, PAAltafC Encounter for long-term (current) use of medications Immunology - Main [address] [facility] [address] [place], [place] [phone] Social History Tobacco Use Types Packs/Day Years [...] Sign Reading Time Taken Comments Blood Pressure 120/78 11/06/2015 1020 EDT Pulse 62 11/06/2015 1020 EDT Temperature - - Respiratory Rate - - Oxygen Saturation - - Inhaled Oxygen Concentration - - Weight 68 kg (150 lb) 11/06/2015 1020 EDT Height - - Body Mass Index 24.58 10/21/2014 1348 EDT documented in this encounter [...] as of this encounter Discharge Diagnoses Diagnosis L40.50 Arthropathic psoriasis, 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[ICD-10-CM] Z79.899 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 Continue your same medications including Enbrel and Methotrexate. Remember to have your labs checked every 3-4 months to monitor your medications.?? Due again by the end of this month. Follow up with Dr. Hernandez in 6 months, sooner if needed. documented in this encounter Ordered Prescriptions Prescription Sig Dispensed Refills Start Date End Date methotrexate 2.5 mg tablet Take 6 Tabs by 78 Tab 1 11/0503/26/2016 mouth once a week. documented in this encounter Progress Notes Tabatha Degroot PA - 11/06/2015 1106 EDT Images from the original note were not included. Division of Rheumatology and Clinical Immunology Chief Complaint Patient presents with ??? Follow-up routine follow-up, doing well since last visit HPI: Ms. Nina Boothe is a 45 y.o. female here for follow up of psoriatic arthritis. Changes since last visit: Increased Methotrexate from 5 to 6 tabs weekly. Helped. Remains on Enbrel once weekly. Affected joints: Still has a little bit of discomfort in right hand which is mouse hand but minimal. Not every day. Maybe a few times a week. Enough to notice but doesn't limit function. No significant AM stiffness. Psoriasis well controlled. No active lesions. Goes to gym twice per day most days Physical activity: Bootcamp 4 times per week, TRX, spinning once per week, hike on weekends, walks at lunch every day Functional Limitations: None identified Current Outpatient Prescriptions [...] 50 mg into the skin once a week Tolerates ok without reported side effects. No recent infections. 12 Pen 3 ??? FLUTICASONE PROPIONATE (FLUTICASONE INHL) Inhale as directed daily. ??? folic acid (FOLVITE) 1 mg tablet Take 1 Tab by mouth daily. 90 Tab 3 ??? lisinopril (PRINIVIL, ZESTRIL) 10 mg tablet Take 10 mg by mouth daily ??? loratadine-pseudoephedrine (CLARITIN-D 24 HOUR) 10-240 mg per tablet Take 1 Tab by mouth daily as needed. ??? methotrexate 2.5 mg tablet Take 6 Tabs by mouth once a week. Toleraets ok without reported side effects. 78 Tab 1 ??? montelukast (SINGULAIR) 10 mg tablet Take [...] times daily as needed. Allergies include: Asa [aspirin] Past Medical History Diagnosis Date ??? Abnormal Pap smear in remote past ??? Allergy ??? Arthritis ??? Hypertension ??? Hyperthyroidism history of this, now resolved ??? Migraine ??? Psoriasis Past Surgical History Procedure Laterality Date ??? Tubal ligation ??? Tubal ligation ??? Knee arthroscopy bilateral knees Family History Problem Relation Age of Onset ??? Heart Disease Father ??? Arthritis Sister psoriatic arthritis on TNF alpha inhibitor ??? Arthritis Paternal Grandmother ??? Cancer Paternal Grandmother ??? Psoriasis Sister ??? Psoriasis Mother Social History Substance Use Topics ??? Smoking status: Never Smoker ??? Smokeless tobacco: Never Used ??? Alcohol use Yes Comment: About 2 beers a month if that REVIEW OF SYSTEMS: As documented by Nurses/MAs during this visit and reviewed by me (TAB). PHYSICAL EXAMINATION: Constitutional: Pleasant, well developed, well nourished female in no acute distress. Visit Vitals ??? BP 120/78 ??? Pulse 62 ??? Wt 68 kg (150 lb) ??? BMI 24.58 kg/m2 HEENT: No occular inflammation. No oral ulcers. No lymphadenopathy. RESPIRATORY: Clear to auscultation bilaterally; no adventitious sounds. CARDIOVASCULAR: Regular rate and rhythm, normal S1S2, no murmurs/gallops/rubs. SKIN: No rashes. NEUROLOGIC: Mental status normal. Gait normal without assistive device. Moves on/off exam table independently. Muscle strength not formally assessed but moving all extremities against gravity. MUSCULOSKELETAL: A complete msk exam including bilateral upper and lower extremities was done and was normal except for abnormal findings shown on homonculus. RAPID3 Score: As documented by Nurses/MAs during this visit and reviewed by me (TAB). LABS: Reviewed external lab results Imaging: None recent/pertinent Impression/Plan: 1. Psoriasis with arthropathy Doing well on current regimen. - Hemagram & Differential; Standing - Comprehensive Metabolic Panel (CMP); Standing 2. Encounter for long-term (current) use of medications Due for labs. - Hemagram & Differential; Standing - Comprehensive Metabolic Panel (CMP); Standing Patient Instructions No changes today.?? Continue your same medications including Enbrel and Methotrexate. Remember to have your labs checked every 3-4 months to monitor your medications.?? Due again by the end of this month. Follow up with Dr. Hernandez in 6 months, sooner if needed. Barriers to learning identified: No Patient verbalizes understanding and agrees with plan: Yes I was supervised by Dr. Sutherland who was in the suite and immediately available for the entire time theservice was provided. MICHAEL Riggs 11/06/2015 11:06 Attestation statement: Supervising Physician Nat Sutherland MD Marisol Quiñonez RN - 11/06/2015 1023 EDT REVIEW OF SYSTEMS: Yes No Yes [...] Rheumatology Harsh Malloy, ELBERT 111 [facility], [address] [place], [place] [phone] (Wo rk) documented as of this encounter Visit Diagnoses Diagnosis Psoriasis with arthropathy (HCC) - Prima ry Psoriatic arthropathy Encounter for long-term (current) use of medications Encounter for long-term (current) use of other medications documented in this encounter Discontinued Medications Medication Sig Discontinue Reason Start Date End Date methotrexate 2.5 mg tablet Take 6 Tabs by Reorder 07/24/2015 11/06/2015 mouth once a week. documented as of this encounter Care Teams Heel Coverer Machine Operator Relationship Specialty Start Date End Date Meredith Rapp MD PCP - General 08/09/10 08/04/18 [address] [place] [phone] documented as of this encounter
--- OUTSIDE RECORDS SUMMARY | 2022-02-08 01:52 | XMS_ITS | Encounter Summary ---
:1970 Author Organization [facility] Address [address] [place] [address] Care Team Providers Name Role Phone Meredith Rapp MD Primary Care Provider Reason for Visit Reason Comments Psoriasis doing very well Rash Left elbow Encounter Details Date Type Department Care Team Description 10/12/2013 Office Visit [facility] Leta Hugo Psoriasis (Primary Dx); Dermatology - [facility] MD Car Dermatitis [address] [place], [place] [id number] [place] [address], [place] [address] Social History Tobacco Use Types Packs/Day Years Used Date Never Smoker Smokeless Tobacco: Never Used Alcohol Use Standard Drinks/Week Comments No 0 (1 standard drink = 0.6 oz pure alcoho l) Sex Assigned at Date Recorded Female 06/29/2019 10:58 EST documented as of this encounter Discharge Diagnoses Diagnosis 692.9 DERMATITIS NOS[ICD-9-CM] 696.1 OTHER PSORIASIS[ICD-9-CM] documented in this encounter Patient Instructions Patient [place] - 10/12/2013 9:50 EDT SUN PROTECTION AND SUN SCREENS Most of a person's lifetime sun exposure occurs before the age of 18!! Skin cancer can be prevented! Protect yourself and your child from the sun! Avoiding the sun is the best protection! IF YOUR CHILD IS GETTING A SUNTAN DESPITE USING SUNSCREEN, THEY ARE STILL GETTING TOO MUCH SUN! YOU WILL NEED TO USE COVER-UP CLOTHING AND KEEP THEM OUT OF THE SUN! Repeated and prolonged exposure to sunlight greatly increases your risk of all types of skin cancer.In addition, chronic sun exposure is the major cause of wrinkles, spotty, and unhealthy appearing skin. It???s important to have a healthy and active lifestyle and we encourage you to continue this. However, some common sense guidelines will help to keep your skin and eyes safe. ?? Avoid the hot mid-day sun. Try to schedule your outdoor activities for director consumer affairs or early evening. ?? Make clothing a regular part of protection. Keep your shirt on - wear long sleeves and a wide brimmed hat. ?? Be especially careful when on the water, snow or sand as sunlight is reflected upwards from thesesurfaces. ?? Don???t forget your eyes and lips! Wear sunglasses- Sun exposure increases your risk for cataracts. Wear lip balm with an SPF. ?? Make sure your children practice good sun protection. Early sun damage increases their risk of developing skin cancer. ?? Wear a sunscreen. We recommend using a sunscreen with both UVA and UVB protection and a SPF of atleast 30. If you sunburn more easily or are in more intense sun, you will need a higher SPF. A ???waterproof?? sunscreen is usually good for about 2 hours, even if you???re swimming. A sunscreen should be reapplied every 2 hours and after swimming. Remember to put sunscreen on your ears and lips. There are many lip balms available with sunscreen. For more information about sun protection, skin cancer, and all skin topics, visit: www.skincancer.org and www.aad.org Sunscreens: Sunlight is made up of different wavelengths, some of which we can see as the various colors of therainbow, or ???visible?? light. UVA and UVB are invisible wavelengths, which penetrate into the skin and in excess amounts, cause injury. When the injury is severe, skin cells and become inflamed and we see sunburn. UVB causes sunburn more quickly than UVA and most sunscreens are targeted towardsthis wavelength. Tanning while wearing sunscreen may mean that primarily UVA light is reaching the skin. This is the same UVA light that is used in tanning beds and is responsible for causing wrinkles,brown spots and possibly melanoma. For this reason, we recommend that you don???t use tanning beds and that you use sunscreen with both UVA and UVB protection. Most sunscreen ingredients are good at blocking UVB light. The only ingredients that also do a goodjob blocking UVA light are listed below. Make sure your sunscreen contains one of these ingredients.CAUTION: in some people Parasol may cause staining of white clothing. ?? Parasol (avobenzone) ?? Zinc Oxide ?? Titanium Oxide Some recommended brands: ?? Blue Lizard ?? Coppertone ?? Neutrogena ?? Bull Frog Good ???everyday?? moisturizer for the face: ?? Tizo daily moisturizer with SPF ?? Elta daily moisturizer with SPF ?? Oil of Olay Complete Sun Protection ?? Cetaphil daily facial moisturizer ?? Neutrogena daily facial moisturizer Recommended resources for sun protective clothing and hats: ?? www.Medical Depot ?? Www.ComAbility.Domain Media ?? For sensitive skin, look for sunscreens that contain: Zinc Oxide & Titanium Oxide. These are often labeled baby or sensitive. Use clobetasol ointment at night to the rash on the elbows and Lidex (fluocinonide) during the day. documented in this encounter Ordered Prescriptions Prescription Sig Dispensed Refills Start Date End Date clobetasol (TEMOVATE) Apply topically to 30 g 2 201308/06/2017 0.05 % affected area at ointmentIndications: bedtime Apply nightly Dermatitis to the rash on elbow. Do not apply to face, armpit or groin.. documented in this encounter Progress Notes Franci Hull - 10/12/2013 1004 EDT Review of Systems Constitutional: Negative for fever, fatigue and unexpected weight change. HENT: Negative for mouth sores. Eyes: Negative for pain. Respiratory: Negative for cough and shortness of breath. Cardiovascular: Negative for chest pain and palpitations. Gastrointestinal: Negative for nausea, vomiting, abdominal pain, diarrhea, constipation and blood instool. Genitourinary: Negative for dysuria, frequency and hematuria. Musculoskeletal: Negative for myalgias, joint swelling, arthralgias and muscle stiffness in the morning. Skin: Positive for rash. Neurological: Negative for numbness and headaches. Endo/Heme/Allergies: Does not bruise/bleed easily. Psychiatric/Behavioral: Negative for sleep disturbance. The patient is not nervous/anxious. Franci Hull 10/12/2013 10:04 [place] - 10/12/2013 0949 EDT Dermatology Outpatient Visit Note Chief Complaint Patient presents with ??? Psoriasis doing very well ??? Rash Left elbow Dermatologic History: 1. Psoriasis, plaque type with psoriatic arthritis - on Enbrel, methotrexate 12.5 mg per week Last Dermatology office visit: September 2012 SUBJECTIVE Ms. Boothe is a 43 y.o. female who presents for follow up for psoriasis treatment. She iscurrently on MTX 12.5 mg weekly and Enbrel weekly and at her last visit, for her scalp, betamethasone solution and Dovonex. Rheumatology is managing the systemic medications. She notes that she has no p soriasis including on her scalp. She does have a new rash on the elbows (mainly left) over the last 6 months which comes and goes, lasting a few days each episode. It is extremely itchy. She has tried OTC hydrocortisone and Lidex on it for a few days each, which don't seem to help. She has no new medications, although her Enbrel was started about 1 year ago. For full Medical, Surgical, Family, and Social histories, please see the History section of this encounter in the electronic chart which I have personally reviewed. For Review of Systems, Medications and Allergies, please see those sections of this encounter in theelectronic chart which I have also reviewed. She has a current medication list which includes the following prescription(s): acetaminophen, atenolol, betamethasone dipropionate, calcipotriene, cetirizine, clobetasol, clobetasol, etanercept, fluticasone propionate, folic acid, loratadine-pseudoephedrine, methotrexate, methotrexate, multivitamins with minerals, naproxen, salicylic acid, and triamcinolone. She is allergic to asa. OBJECTIVE VS: There were no vitals taken for this visit. Ms. Boothe is well developed, well-nourished and in no acute distress female sitting on the examination table with a normal affect. She is alert and oriented to person, place and time. She has Henry type III skin. Cutaneous head, neck and arms examined including the hair, scalp, face, eyelids, lips, neck, upper extremities, hands, digits and nails. was performed.The examination was normal withthe addition of the following comments: There were no lesions suspicious for malignancy. -On the left proximal dorsal forearm there are 1-2 dozen ~2 mm papules in a haphazard arrangement, some coalescing into cobblestoned plaques -There are two similar papules on the right elbow ASSESSMENT 1. Dermatitis, unclear etiology on the forearm/elbows. DDx includes interstitial granulomatous dermatitis/palisading neutrophilic granulomatous dermatitis or another type of drug-related eruption (?Enbrel), granuloma annulare, less likely eczematous, lichenoid or dermatitis herpetiformis PLAN 1. Discussed biopsying or treating with more potent topical steroids today. Patient would like to try topical treatment before biopsy. Prescribed clobetasol ointment to use at night and instructed to use Lidex during the day, about twice daily total application of topical steroids. She will call if itdoes not resolve for a possible biopsy. -She is seeing rheumatology today, who will manage her MTX and Enbrel. She may be due for a PPD soon; we have no result in our system regarding this. -Follow up in 1 year She will f/u as planned or in the interim should problems arise. Med Orders Placed This Visit and Additions to the Medication List Medications ??? clobetasol (TEMOVATE) 0.05 % ointment Sig: Apply topically to affected area at bedtime Apply nightly to the rash on elbow. Do not apply to face, armpit or groin.. Dispense: 30 g Refill: 2 aRncho Mayberry MD 10/12/2013 12:50 Attestation Statement: I saw and examined the patient with the resident/fellow. I agree with the findings and plan of care documented in the resident's/fellow's note. Leta Hugo MD Dermatology [facility] documented in this encounter Plan of Treatment Upcoming Encounters Date Type Specialty Care Team Description 02/28/2022 Office Visit Rheumatology Harsh Malloy, ACID RETORT OPERATOR [address] [facility], [facility], [address] [place], [place] [address] (Wo rk) documented as of this encounter Visit Diagnoses Diagnosis Psoriasis - Primary Other psoriasis Dermatitis Contact dermatitis and other eczema, due to unspecified cause documented in this encounter Care Teams Continuous Churn Buttermaker Relationship Specialty Start Date End Date Meredith Rapp MD PCP - General 08/09/10 08/04/18 [address] [place] [address] documented as of this encounter
--- OUTSIDE RECORDS SUMMARY | 2022-02-08 01:52 | XMS_ITS | Encounter Summary ---
:1970 Author Organization [facility] Address [address] [place] [address] Care Team Providers Name Role Phone Meredith Rapp MD Primary Care Provider Reason for Visit Reason Comments Joint Pain hands, more so right hand an d right knee Encounter Details Date Type Department Care Team Description 04/17/2016 Office Visit [facility] Etelvina Hernandez Psor iasis with Rheumatology & MD arthropathy Immunology - [address] ([facility] ) (Primary [address] Dx) [address] [place] [address] [address], [place] [address] (Wo rk) Social History Tobacco [...] Sign Reading Time Taken Comments Blood Pressure 129/73 04/17/2016 1046 EST Pulse 68 04/17/2016 1046 EST Temperature - - Respiratory Rate 18 04/17/2016 1046 EST Oxygen Saturation - - Inhaled Oxygen Concentration - - Weight 68.9 kg (152 lb) 04/17/2016 1046 EST Height 166.4 cm (5' 5.5) 04/17/2016 1046 EST Body Mass Index 24.91 04/17/2016 1046 EST documented in this encounter Functional Status Functional [...] Diagnoses Diagnosis L40.50 Arthropathic psoriasis, 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 After 8 tabs a week, if no improvement, consider changing Enbrel to a different TNF alpha inhibitor for example Humira Continue labs every 3-4 months documented in this encounter Ordered Prescriptions Prescription Sig Dispensed Refills Start Date End Date methotrexate 2.5 mg tablet Take 7 Tabs by 90 Tab 1 04/1710/18/2016 mouth once a week. documented in this encounter Progress Notes Etelvina Hernandez MD - 04/17/2016 1100 EST Division of Rheumatology and Clinical Immunology Chief Complaint Patient presents with ??? Joint Pain hands, more so right hand and right knee HPI: Here for follow up of psoriatic arthritis. The past 2 months the patient has been having increasing hand pain and occasionally some knee pain. She has been using naproxen but it is not sufficiently controlling her symptoms. She denies any infections and is status post flu vaccine. Current Outpatient Prescriptions Medication Sig Dispense Refill [...] armpit or groin.. 30 g 2 ??? ENBREL SURECLICK 50 mg/mL (0.98 mL) pen injector INJECT 50 MG UNDER THE SKIN ONCE A WEEK 11.76 mL 1 ??? fluocinonide (LIDEX) 0.05 % ointment Apply daily to rash if needed 1 Tube 3 ??? FLUTICASONE PROPIONATE (FLUTICASONE INHL) Inhale as directed daily. ??? folic acid (FOLVITE) 1 mg tablet Take 1 Tab by mouth daily. 90 Tab 3 ??? lisinopril (PRINIVIL, ZESTRIL) 10 mg tablet Take 10 mg by mouth daily ??? loratadine-pseudoephedrine (CLARITIN-D 24 HOUR) 10-240 mg per tablet Take 1 Tab by mouth daily as needed. Reported on 04/17/2016 ??? methotrexate 2.5 mg tablet Take 6 Tabs by mouth once a week. 78 Tab 1 ??? montelukast (SINGULAIR) 10 mg tablet Take 10 mg by mouth daily ??? Multivitamins with Minerals Tab Take 1 Tab by mouth daily. ??? naproxen (NAPROSYN) 500 mg tablet Take 1 Tab by mouth 2 times daily with breakfast and dinner. 180 Tab 3 ??? oxybutynin (DITROPAN) 5 mg tablet Take 5 mg by mouth 2 times daily. ??? Salicylic Acid 6-6 % KtSG Topically once daily to affected areas 1 Bottle 11 ??? triamcinolone (KENALOG) 0.1 % cream Apply topically 2 times daily as needed. No current facility-administered medications for this visit. Allergies include: Asa [aspirin] Past Medical History [...] Psoriasis Sister ??? Psoriasis Mother Social History Social History ??? Marital status: Spouse name: N/A ??? Number of children: N/A ??? Years of education: N/A Occupational History ??? Not on file. Social History Main Topics ??? Smoking status: Never Smoker ??? Smokeless tobacco: Never Used ??? Alcohol use Yes Comment: About 2 beers a month if that ??? Drug use: No ??? Sexual activity: Not on file Other Topics Concern ??? Not on file Social History Narrative REVIEW OF SYSTEMS: As documented by Nurses/MA???s during this visit and reviewed by me PHYSICAL EXAMINATION: Visit Vitals ??? BP 129/73 (BP Cuff Location: Left arm, Patient Position: Sitting) ??? Pulse 68 ??? Resp 18 ??? Ht 166.4 cm (65.5) ??? Wt 68.9 kg (152 lb) ??? BMI 24.91 kg/m2 Head and neck: no cervical nodes Chest: clear MSK: Warmth and swelling and tenderness inferior patellar bursa right knee. The knee itself has no effusion. Left knee normal. Right wrist tender without swelling. Right second and third MCPs tender without swelling. Right second and third finger PIPs mildly swollen. The rest of the upper and lower extremity joint exam showed no synovitis. LABS from April 16, 2016 outside hospital: WBC 7.44, Hgb 15, HCT 42.9, platelets 267, CMP normal with AST 21 and ALT 21. Diagnosis / Assessment: 1. Psoriasis with arthropathy This is flaring up. I think we could try increasing her methotrexate for better control but ultimately if that is not helpful need to consider changing Enbrel 20 alternate TNF alpha inhibitor, for example Humira. Patient declines a course of prednisone at this time. Recommendations/Evaluation: Patient Instructions Increase methotrexate to 7 tabs a week; after 8 weeks if you are not better, call and we can increase to 8 tabs a week. After 8 tabs a week, if no improvement, consider changing Enbrel to a different TNF alpha inhibitor for example Humira Continue labs every 3-4 months Return in about 6 months (around 10/16/2016). Barriers to learning identified: No Patient verbalizes understanding and agrees with plan Yes Etelvina Hernandez MD 04/17/2016 11:05 China Atkins - 04/17/2016 1100 EST REVIEW OF SYSTEMS: Yes No Yes No [...] X Burning on urination X Skin rash x Hand/Foot color change in cold X documented in this encounter Plan of Treatment Upcoming Encounters Date Type Specialty Care Team Description 02/28/2022 Office Visit Rheumatology Harsh Malloy, ELBERT [address] [facility], [address] [place] [address] (Wo rk) documented as of this encounter Visit Diagnoses Diagnosis Psoriasis with arthropathy (HCC) - Prima ry Psoriatic arthropathy documented in this encounter Discontinued Medications Medication Sig Discontinue Reason Start Date End Date methotrexate 2.5 mg tablet Take 6 Tabs by Reorder 03/26/2016 04/17/2016 mouth once a week. documented as of this encounter Historical Medications This list may reflect changes made after this encounter. Medication Sig Dispensed Refills Start Date End Date oxybutynin (DITROPAN) 5 mg Take 5 mg by mouth 2 0 tablet times daily. added in this encounter Care Teams Label Stitcher Relationship Specialty Start Date End Date Meredith Rapp MD PCP - General 08/09/10 08/04/18 [address] [place] [address] documented as of this encounter
--- OUTSIDE RECORDS SUMMARY | 2022-02-08 01:52 | XMS_ITS | Encounter Summary ---
:1970 Author Organization [facility] Address [address] [place] [address] Care Team Providers Name Role Phone Meredith Rapp MD Primary Care Provider Reason for Visit Reason Onset Date Comments Medications Refill 07/14/2015 Encounter Details Date Type Department Care Team Description 07/14/2015 Refill [facility] Marisol Tejeda RN M edications Refill Rheumatology & Immunology - [facility] [address] [place] [address] Social History Tobacco Use Types [...] Take 6 Tabs by 78 Tab 1 07/2311/06/2015 mouth once a week. documented in this encounter Plan of Treatment Upcoming Encounters Date Type Specialty Care Team Description 02/28/2022 Office Visit Rheumatology Harsh Malloy, CALENDER LET OFF OPERATOR [address] [facility], [facility] [address] [place], [place] [address] (Wo rk) documented as of this encounter Visit Diagnoses Not on filedocumented in this encounter Discontinued Medications Medication Sig Discontinue Reason Start Date End Date methotrexate 2.5 mg tablet Take 6 Tabs by Reorder 04/18/2015 07/14/2015 mouth once a week documented as of this encounter Care Teams Hogshead Cooper Relationship Specialty Start Date End Date Meredith Rapp MD PCP - General 08/09/10 08/04/18 [address] [place] [address] documented as of this encounter
--- OUTSIDE RECORDS SUMMARY | 2022-02-08 01:52 | XMS_ITS | Encounter Summary ---
:1970 Author Organization [facility] Address [address] [place] [address] Care Team Providers Name Role Phone Meredith Rapp MD Primary Care Provider Reason for Visit Reason Onset Date Comments Medications Refill 01/07/2014 Encounter Details Date Type Department Care Team Description 01/07/2014 Refill [facility] Darrian Hernandez MD Medications Refill Rheumatology & Immunology [address], [facility] [address] [place], [place] [address] [place] [address] [phone] [address] (Wo rk) Social History Tobacco Use [...] tablet Take 5 Tabs by 60 Tab 1 01/1004/18/2014 mouth once a week. documented in this encounter Miscellaneous Notes Telephone Encounter - Talisha Loja RN - 01/10/2014 0847 EDT From: Nina Krissy Gasparsarah To: Etelvina Hernandez MD Sent: 01/07/2014 18:20 EDT Subject: Medication Renewal Request Original authorizing provider: MD Nina Turner would like a refill of the following medications: methotrexate 2.5 mg tablet [Etevlina Hernandez MD] Preferred pharmacy: [address] Comment: documented in this encounter Plan of Treatment Upcoming Encounters Date Type Specialty Care Team Description 02/28/2022 Office Visit Rheumatology Harsh Malloy, DIMENSIONAL INTEGRATION ENGINEER [address] [facility], [facility], [address] [place], [place] [address] (Wo rk) documented as of this encounter Visit Diagnoses Not on filedocumented in this encounter Discontinued Medications Medication Sig Discontinue Reason Start Date End Date methotrexate 2.5 mg Take 4 Tabs by Reorder 04/14/20132013 tablet mouth once a week. methotrexate 2.5 mg take 5 tablets by Dose adjustment 09/17/2013 01/12/2014 tablet mouth every week. documented as of this encounter Care Teams Surfboard Designer Relationship Specialty Start Date End Date Meredith Rapp MD PCP - General 08/09/10 08/04/18 [address] [place] [address] documented as of this encounter
--- OUTSIDE RECORDS SUMMARY | 2022-02-08 01:52 | XMS_ITS | Encounter Summary ---
:[address] [facility] Address [address] [place] [address] Care Team Providers Name Role Phone Meredith Rapp MD Primary Care Provider Unknown, Provider Primary Care Provider Kayleigh Mallory Primary Care Provider Encounter Details Date Type Department Care Team Description 05/15/2017 Telephone [facility] Judson Malloy NP Rheumatology & Immunology - [address] [facility], [address], [address] [phone] (Wo rk) Social History Tobacco Use Types [...] this encounter Miscellaneous Notes Telephone Encounter - Harsh Malloy NP - 05/15/2017 0809 EST Informed Iris that her Cr is back to normal. She had no other questions or concerns. Previous mild increased Cr. Likely dehydrated on day of labs. documented in this encounter Plan of Treatment Upcoming Encounters Date Type Specialty Care Team Description 02/28/2022 Office Visit Rheumatology Harsh Malloy NP [address] [facility], [facility], [address] [place] [address] (Wo rk) documented as of this encounter Visit Diagnoses Not on filedocumented in this encounter Care Teams Environmental Services Assistant Relationship Specialty Start Date End Date Meredith Rapp MD PCP - General 08/09/10 08/04/18 [address] [place] [phone] Unknown, Provider, PCP - General 08/05/18 02/03/19 Kayleigh Mallory FNP PCP - General 02/04/19 [address] [place] [address] documented as of this encounter
--- OUTSIDE RECORDS SUMMARY | 2022-02-08 01:52 | XMS_ITS | Encounter Summary ---
:1970 Author Organization [facility] Address [address] [place] [address] Care Team Providers Name Role Phone Meredtih Rapp MD Primary Care Provider Reason for Visit Reason Onset Date Comments Medications Refill 01/25/2013 Encounter Details Date Type Department Care Team Description 01/25/2013 Refill [facility] Darrian Hernandez MD Medications Refill Rheumatology & Immunology [address], [address] [place], [place] [address] [place] [address] [phone] (Wo rk) Social History Tobacco Use [...] Inject 50 mg into 12 Pen 1 01/25/2013 06/18/2013 SURECLICK) 50 mg/mL (0.98 the skin once a mL) Pen Injector week. documented in this encounter Miscellaneous Notes Telephone Encounter - Katelin Loo - 01/25/2013 0879 EDT Medication(s) Requested: enbrel Pharmacy: [facility] Last Refill Date: 07.16.12 Last Visit Date: 01.12.13 Next Visit Date: 04/14/2013 Is patient out of medication?rosanna Loo 01/25/2013 14:28 documented in this encounter Plan of Treatment Upcoming Encounters Date Type Specialty Care Team Description 02/28/2022 Office Visit Rheumatology Harsh Malloy, ELBERT 111 [facility], [facility], Level 5 [place], [place] [address] (Wo rk) documented as of this encounter Visit Diagnoses Not on filedocumented in this encounter Discontinued Medications Medication Sig Discontinue Reason Start Date End Date Etanercept (ENBREL Inject 50 mg into Reorder 07/16/201212/29 SURECLICK) 50 mg/mL the skin once a (0.98 mL) PnIj week. documented as of this encounter Care Teams Amusement Park Ride Mechanic Relationship Specialty Start Date End Date Meredith Rapp MD PCP - General 08/09/10 08/04/18 [address] [place] [address] documented as of this encounter
--- OUTSIDE RECORDS SUMMARY | 2022-02-08 01:52 | XMS_ITS | Encounter Summary ---
:1970 Author Organization [facility] Address [address] [place] [address] Care Team Providers Name Role Phone Meredith Rapp MD Primary Care Provider Reason for Visit Reason Comments Other Encounter Details Date Type Department Care Team Description 02/12/2017 Refill [facility] Darrian Hernandez MD Other Rheumatology & Immunology - [address] [place] [address] [address] 5 [place], [place] [address] [place] [phone] (Wo rk) Social History Tobacco Use Types [...] Sig Dispensed Refills Start Date End Date ENBREL SURECLICK 50 mg/mL INJECT 50 MG UNDER 11.76 mL 1 05/29/2017 (0.98 mL) pen injector THE SKIN ONCE A WEEK documented in this encounter Plan of Treatment Upcoming Encounters Date Type Specialty Care Team Description 02/28/2022 Office Visit Rheumatology Harsh Malloy, ELBERT 111 [facility], [facility], Level 5 [place], [place] [address] (Wo rk) documented as of this encounter Visit Diagnoses Not on filedocumented in this encounter Discontinued Medications Medication Sig Discontinue Reason Start Date End Date Etanercept (ENBREL Inject 50 mg into Reorder 09/09/201601/26 SURECLICK) 50 mg/mL the skin once a (0.98 mL) pen injector week. documented as of this encounter Care Teams Sewer Inspector Relationship Specialty Start Date End Date Meredith Rapp MD PCP - General 08/09/10 08/04/18 [address] [place] [address] documented as of this encounter
--- OUTSIDE RECORDS SUMMARY | 2022-02-08 01:52 | XMS_ITS | Encounter Summary ---
:1970 Author Organization [facility] Address [address] [place] [address] Care Team Providers Name Role Phone Meredith Rapp MD Primary Care Provider Reason for Visit Reason Onset Date Comments Prior Auth, Medication 07/13/2012 Enbrel Prior Auth, Medication 07/13/2012 status Encounter Details Date Type Department Care Team Description 07/13/2012 Telephone [facility] [place], Prior Auth, Medication Rheumatology & Immunology IMAN Atkinsno (E nbrel); Prior Auth, - Main [place] Medication (status) [address] [place] [address] Social History Tobacco Use Types [...] Inject 50 mg into 12 Pen 1 07/16/2012 01/25/2013 SURECLICK) 50 mg/mL (0.98 the skin once a mL) PnIj week. documented in this encounter Miscellaneous Notes Telephone Encounter - April Awan RN - 07/16/2012 1004 EDT Spoke with patient. Advised patient of Tabatha Pinedo's response. Patient verbalized understanding. Discussed insurance coverage and the patient is all set. She wants the script sent to [facility]. This has been done. She prefers to have the Sureclick pen. She will call [facility] and be sure that she has an account set up. Also, once patient receives that med she will refrigerate it and call us to get set up for a teaching. Patient verbalized understanding of all the above. elephone Encounter - Leora Gibbons - 07/16/2012 0821 EDT Please call patient with the statu of her Enbrel. Thanks elephone Encounter - Tabatha Pinedo PA - 07/15/2012 1519 EDT Next time Iris calls, please let her know that all of her labs (including CBC, CMP, sed rate and hepatitis screening) were normal/negative. Her PPD was also negative. Once we figure out insurance coverage, ok to start Enbrel. elephone Encounter - April Awan RN - 07/15/2012 0839 EDT Spoke with patient. Patient states that a woman in her office has the same exact insurance and her Enbrel was covered in full. I advised patient that she should call her insurance and discuss this withthem. Advised her to call back with an update. elephone Encounter - Deanna Ash RN - 07/14/2012 1414 EDT Left message for pt to return call. Enbrel has been approved from today until 01/13/15. Please inform pt she has 50% co-pay which is expensive (see encounter note below). Pt has commercialinsurance filed with registration. Co-pay assistance through [employer] caps off at approx $4000, this may only help for about 3-4 months supply. Pt may apply for assistance through [employer] (a state program that covers Rx drugs for a low monthly premium, based on income eligibility). Pt may request assistance with application by calling [facility] Health Assistance Program [phone]. elephone Encounter - Ysabel Mario - 07/14/2012 1009 EDT Enbrel 50 mg PFS has been approved 07.14.12 through 01.13.2015. Auth # [id number]. However, patient has a50% co-pay which is about $1175.00 for 30 day supply. elephone Encounter - China Penn RN - 07/13/2012 1639 EDT PPD was read as negative at PCP office. Await prior auth on Enbrel. documented in this encounter Plan of Treatment Upcoming Encounters Date Type Specialty Care Team Description 02/28/2022 Office Visit Rheumatology Harsh Malloy, SURVEILLANCE DIRECTOR 111 [facility], [facility], [address] 5 [place], [place] [address] (Wo rk) documented as of this encounter Visit Diagnoses Not on filedocumented in this encounter Care Teams Automobile Painter Relationship Specialty Start Date End Date Meredith Rapp MD PCP - General 08/09/10 08/04/18 [address] [place] [address] documented as of this encounter
--- OUTSIDE RECORDS SUMMARY | 2022-02-08 01:52 | XMS_ITS | Encounter Summary ---
:1970 Author Organization [facility] Address [address] [place] [address] Care Team Providers Name Role Phone Meredith Rapp MD Primary Care Provider Reason for Referral Medication Prior Authorization (Routine) - Closed Specialty Diagnoses / Procedures Referred By Contact Refer red To Contact Diagnoses Psoriatic arthropathy (HCC) Etelvina Hernandez MD 111 [facility] [address] [place] [address] Referral ID Status Reason Start Expiration Visits Visits Date Date Requested Authorized [id number] Closed Medication Prior 05/13/2017 1 1 Authorization Question Answer Medication to be Prior Authorized: Enbrel 50 mg pen on ce weekly Comments The purpose of this consult request is t o inform the scheduling staff that a medication needs to be prior-authorized before it is prescribed and/or administered. Encounter Details Date Type Department Care Team Description 05/13/2017 Orders Only [facility] Nasreen Rankin Psori atic arthropathy Rheumatology & RN ([facility]) ([facility]) Immunology - Main [place] (Primary Dx) [address] [place] [address] Social History Tobacco Use Types [...] Office Visit Rheumatology Harsh Malloy NP 111 [facility], [facility], Level 5 [place], [place] [address] (Wo rk) Scheduled Referrals Name Type Priority Associated Order Schedule Diagnoses AMB MEDICATION PRIOR Outpatient Referral Routine Psoriatic Ordered: AUTHORIZATION arthropathy 05/13/2017 (CMS-HCC) ([facility]) documented as of this encounter Visit Diagnoses Diagnosis Psoriatic arthropathy (HCC) - Primary Psoriatic arthropathy documented in this encounter Care Teams Health Plan Advisor Relationship Specialty Start Date End Date Meredith Rapp MD PCP - General 08/09/10 08/04/18 [address] [place] [address] documented as of this encounter
--- OUTSIDE RECORDS SUMMARY | 2022-02-08 01:52 | XMS_ITS | Encounter Summary ---
:1970 Author Organization [facility] Address [address] [place] [address] Care Team Providers Name Role Phone Meredith Rapp MD Primary Care Provider Reason for Visit Reason Comments Medication Management doing well Encounter Details Date Type Department Care Team Description 10/12/2013 Office Visit [facility] Tabatha Degroot Psoria sis with arthropathy ([facility]) (Primary Dx); Rheumatology & M, PA-C Rash and other nonspecific skin eruption ; Immunology - Main [address] [place] for long-term (current) use of other medications [place] [address] [place] [address] [phone] Social History Tobacco Use Types Packs/Day Years Used Date Never Smoker Smokeless Tobacco: Never Used Alcohol Use Standard Drinks/Week Comments No 0 (1 standard drink = 0.6 oz pure alcoho l) Sex Assigned at Date Recorded Female 06/29/2019 10:58 EST documented as of this encounter Last Filed Vital Signs Vital Sign Reading Time Taken Comments Blood Pressure 115/80 10/12/2013 1052 EDT Pulse 68 10/12/2013 1052 EDT Temperature - - Respiratory Rate 18 10/12/2013 1052 EDT Oxygen Saturation - - Inhaled Oxygen Concentration - - Weight 61.7 kg (136 lb) 10/12/2013 1052 EDT Height - - Body Mass Index 22.63 04/14/2013 1026 EST documented in this encounter Discharge Diagnoses Diagnosis 696.0 PSORIATIC ARTHROPATHY[ICD-9-CM] V58.69 AFTERCARE PENITENTIARY USE MEDICATN[ ICD-9-CM] documented in this encounter Patient Instructions Patient InstructionsStTabatha hendrickson PA - 10/12/2013 11:07 EDT No changes today. Continue your current medications. Remember to have your labs checked every 2-3 months while on Methotrexate. Due again by the end of November. Follow up in 6 months, sooner as needed. documented in this encounter Progress Notes Tabatha Pinedo PA - 10/12/2013 1054 EDT Images from the original note were not included. Division of Rheumatology and Clinical Immunology Chief Complaint Patient presents with ??? Medication Management doing well HPI: 43 year old female here for follow up of psoriatic arthritis. Generally followed by Dr. Hernandez or myself. Last seen in clinic ~6 months ago. Continues to do well on Enbrel and Methotrexate. Tried tapering Methotrexate from 12.5 to 10 mg weekly after last visit but within a few weeks developed severe knee pain. Went back up to 12.5 mg weeklywith resolution of symptoms. Joints have been ok since. No further flares. Affected joints: Denies current joint pain or swelling. No significant AM stiffness. Psoriasis also well controlled on current regimen. Iris has a new rash on her left elbow but not related to psoriasis. She doesn't know what it is from? She saw dermatology about it earlier today - they gave her topical steroids. 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 acetaminophen (TYLENOL) 500 mg tablet Take 1,000 mg by mouth every 6 hours as needed. ??? atenolol (TENORMIN) 50 mg tablet Take 50 mg by mouth daily. ??? betamethasone dipropionate 0.05 % lotion Apply [...] not apply to face, armpit or groin. 30 g 2 ??? Etanercept (ENBREL SURECLICK) 50 mg/mL (0.98 mL) Pen Injector Inject 50 mg into the skin once a week. Tolerates ok without reported side effects. No recent infections. 12 Pen 3 ??? FLUTICASONE PROPIONATE (FLUTICASONE INHL) Inhale as directed daily. ??? folic acid (FOLVITE) 1 mg tablet Take 1 tablet by mouth once daily 90 Tab 3 ??? loratadine-pseudoephedrine (CLARITIN-D 24 HOUR) 10-240 mg per tablet Take 1 Tab by mouth daily as needed. ??? methotrexate 2.5 mg tablet Take 5 tablets by mouth every week. Tolerates ok without reported side effects. 20 Tab 3 ??? Multivitamins with Minerals Tab Take 1 Tab by mouth daily. ??? naproxen (NAPROSYN) 500 mg tablet Take 1 tablet by mouth twice a day with food if needed for pain. Not very often. Sometimes takes prophylactically before strenuous activity (such as hiking). 180 Tab1 ??? Salicylic Acid 6-6 % KtSG Topically [...] History ??? Marital Status: Occupational History ??? See above Social History Main Topics ??? Smoking status: [...] nourished female in no acute distress. BP 115/80 Pulse 68 Resp 18 Wt 61.689 kg (136 lb) BMI 22.63 kg/m2 HEENT: PERRL, EOM's intact, no occular inflammation. Oropharynx clear, throat normal without erythema or exudate, no oral ulcers. No lymphadenopathy. RESPIRATORY: Clear to auscultation bilaterally; no adventitious sounds. CARDIOVASCULAR: Regular rate and rhythm, normal S1S2, no murmurs/gallops/rubs. No pedal edema. SKIN: She has a papular rash on the dorsal surface of her left proximal forearm. No psoriatic plaques appreciated. NEUROLOGIC: Mental status normal. Gait normal without assistive device. Moves on/off exam table independently. Muscle strength not formally assessed but moving all extremities against gravity. MUSCULOSKELETAL: A complete msk exam including bilateral upper and lower extremities was done and was normal except for abnormal findings shown on homonculus. LABS: Obtained externally 09/16/13 - CBC with diff: Essentially normal CMP: Very mild renal insufficiency (creatinine 1.1, GFR 53.71) but stable, otherwise normal Imaging: None recent Diagnosis / Assessment: Psoriatic arthritis. Doing well on Enbrel and Methotrexate. Recent attempt to taper Methotrexate unsuccessful (resulted in increased joint pain). No changes today. Psoriasis. Seems to be well controlled on current regimen. She has a new rash on her left forearm but I agree that it does not look psoriatic in nature. Dermatology is addressing. Encounter for extermination inspector use of medication. Labs up to date. CBC ok. Very mild renal insufficiency but this has remained stable. Liver function normal. Recommendations/Evaluation: 1. Continue current medications including Enbrel 50 mg SC and Methotrexate 12.5 mg PO once weekly. 2. Labs (CBCD/CMP) every 2-3 months to monitor for toxicity. Due again at the end of November. 3. Follow up with Dr. Hernandez in 6 months. Barriers to learning identified: No Patient verbalizes understanding and agrees with plan: Yes I was supervised by Dr. Reyes who was in the suite and immediately available for the entire time the service was provided. MICHAEL Deras 10/12/2013 11:00 I was present and available during this encounter. Merrill Reyes MD 10/13/2013 16:29 documented in this encounter Plan of Treatment Upcoming Encounters Date Type Specialty Care Team Description 02/28/2022 Office Visit Rheumatology Harsh Malloy, SENIOR TECHNICAL SUPPORT ENGINEER 111 [facility], [facility], Level [address] [place], [place] [address] (Wo rk) documented as of this encounter Visit Diagnoses Diagnosis Psoriasis with arthropathy (HCC) - Prima ry Psoriatic arthropathy Rash and other nonspecific skin eruption Encounter for long-term (current) use of other medications documented in this encounter Care Teams Pecan Grower Relationship Specialty Start Date End Date Meredith Rapp MD PCP - General 08/09/10 08/04/18 [address] [place] [address] documented as of this encounter
--- OUTSIDE RECORDS SUMMARY | 2022-02-08 01:52 | XMS_ITS | Encounter Summary ---
:1970 Author Organization [facility] Address [address] [place] [address] Care Team Providers Name Role Phone Meredith Rapp MD Primary Care Provider Reason for Visit Reason Onset Date Comments Update 07/01/2016 Encounter Details Date Type Department Care Team Description 07/01/2016 Telephone [facility] Darrian Hernandez MD Update Rheumatology & Immunology - [address] [place] [address] [address] [place], [place] [address] [place] [phone] (Wo rk) Social History Tobacco Use [...] Telephone Encounter - Etelvina Hernandez MD - 07/01/2016 1422 EST Spoke with PCP - they did labs and CXR last week that were normal, patient was afebrile. I left message for patient that if she was better ok to use Enbrel, if not feeling better she should hold Enbreluntil infection resolved. elephone Encounter - Cheryl Escobedo - 07/01/2016 1052 EST PCP calling about patient. Patient was seen last week for cold sx. Had labs drawn. This is just an FYI, no call back necessary. documented in this encounter Plan of Treatment Upcoming Encounters Date Type Specialty Care Team Description 02/28/2022 Office Visit Rheumatology Harsh Malloy, TEST TECH 111 [facility], [facility], [address] [place], [place] [address] (Wo rk) documented as of this encounter Visit Diagnoses Not on filedocumented in this encounter Care Teams Nail Specialist Relationship Specialty Start Date End Date Meredith Rapp MD PCP - General 08/09/10 08/04/18 [address] [place] [address] documented as of this encounter
--- OUTSIDE RECORDS SUMMARY | 2022-02-08 01:52 | XMS_ITS | Encounter Summary ---
:1970 Author Organization [facility] Address [address] [place] [address] Care Team Providers Name Role Phone Meredith Rapp MD Primary Care Provider Reason for Visit Reason Comments Other Encounter Details Date Type Department Care Team Description 02/23/2016 Refill [facility] Gary Degroot, PAAltafC Other Rheumatology & Immunology - [address] [address] [phone] Social History Tobacco Use Types Packs/Day Years [...] INJECT 50 MG UNDER 11.76 mL 1 08/08/2016 (0.98 mL) pen injector THE SKIN ONCE A WEEK documented in this encounter Miscellaneous Notes Telephone Encounter - Maria Esther Aguilar RN - 02/23/2016 1110 EDT Sent to [facility] in error. New rx sent to [facility]. documented in this encounter Plan of Treatment Upcoming Encounters Date Type Specialty Care Team Description 02/28/2022 Office Visit Rheumatology Harsh Malloy, CYBER DEFENSE INCIDENT RESPONDER 111 [facility], [facility], Level [address] [place], [place] [address] (Wo rk) documented as of this encounter Visit Diagnoses Not on filedocumented in this encounter Discontinued Medications Medication Sig Discontinue Reason Start Date End Date Etanercept (ENBREL Inject 50 mg into 02/19/201601/27 SURECLICK) 50 mg/mL the skin once a (0.98 mL) pen injector week. documented as of this encounter Care Teams Machine Builder Relationship Specialty Start Date End Date Meredith Rapp MD PCP - General 08/09/10 08/04/18 [address] [place] [address] documented as of this encounter
--- OUTSIDE RECORDS SUMMARY | 2022-02-08 01:52 | XMS_ITS | Encounter Summary ---
:1970 Author Organization [facility] Address [address] [place] [address] Care Team Providers Name Role Phone Meredith Rapp MD Primary Care Provider Reason for Visit Reason Onset Date Comments Results 05/06/2017 Encounter Details Date Type Department Care Team Description 05/06/2017 Telephone [facility] Darrian Hernandez MD Results Rheumatology & Immunology - [address] [place] [address], [address], [address] [place], [place] [address] [place] [phone] (Wo rk) Social History Tobacco Use [...] Telephone Encounter - Etelvina Hernandez MD - 05/07/2017 1532 EST New labs show slightly abnormal creatinine 1.09 with GFR 53 - recommend rechecking when she comes to clinic next week. Message left on her answering machine. Could be from naproxen (if she is taking this). The rest of her labs were normal: WBC 8.08, Hgb 13.5, MCV 90.7, plt 299, AST 29, ALT 55 (nl <59) documented in this encounter Plan of Treatment Upcoming Encounters Date Type Specialty Care Team Description 02/28/2022 Office Visit Rheumatology Harsh Malloy, RAILROAD DESIGN CONSULTANT 111 [facility], [facility], [address] [place], [place] [address] (Wo rk) documented as of this encounter Visit Diagnoses Not on filedocumented in this encounter Care Teams Rubber Press Tender Relationship Specialty Start Date End Date Meredith Rapp MD PCP - General 08/09/10 08/04/18 [address] [place] [address] documented as of this encounter
--- OUTSIDE RECORDS SUMMARY | 2022-02-08 01:52 | XMS_ITS | Encounter Summary ---
:1970 Author Organization [facility] Address [address] [place] [address] Care Team Providers Name Role Phone Meredith Rapp MD Primary Care Provider Reason for Visit Reason Comments Other Encounter Details Date Type Department Care Team Description 10/07/2012 Refill [facility] Dorene Bustos PA Other Rheumatology & Immunology - [address] [facility] [address] [place] [address] [place], [place] [address] [phone] Social History Tobacco Use Types Packs/Day Years Used Date Never Smoker Smokeless Tobacco: Never Used Alcohol Use Standard Drinks/Week Comments No 0 (1 standard drink = 0.6 oz pure alcoho l) Sex Assigned at Date Recorded Female 06/29/2019 10:58 EST documented as of this encounter Ordered Prescriptions Prescription Sig Dispensed Refills Start Date End Date folic acid (FOLVITE) 1 mg take 1 tablet by 90 Tab 3 09/2610/25/2013 tablet mouth once daily documented in this encounter Plan of Treatment Upcoming Encounters Date Type Specialty Care Team Description 02/28/2022 Office Visit Rheumatology Harsh Malloy, ELBERT 111 [facility], [facility], Level [address] [place], [place] [address] (Wo rk) documented as of this encounter Visit Diagnoses Not on filedocumented in this encounter Discontinued Medications Medication Sig Discontinue Reason Start Date End Date folic acid (FOLVITE) 1 mg Take 1 Tab by mouth Reorder 10/07/19 12 10/07/2012 tablet daily. documented as of this encounter Care Teams Preventive Medicine Specialist Relationship Specialty Start Date End Date Meredith Rapp MD PCP - General 08/09/10 08/04/18 [address] [place] [address] documented as of this encounter
--- OUTSIDE RECORDS SUMMARY | 2022-02-08 01:52 | XMS_ITS | Encounter Summary ---
:1970 Author Organization [facility] Address [address] [place] [address] Care Team Providers Name Role Phone Meredith Rapp MD Primary Care Provider Reason for Visit Reason Onset Date Comments Medications Refill 06/18/2013 Encounter Details Date Type Department Care Team Description 06/18/2013 Telephone [facility] Nathen Penn Refill Rheumatology & Immunology - [place] [place] [address] [place] [address] Social History Tobacco Use Types Packs/Day [...] Inject 50 mg into 12 Pen 3 06/18/2013 04/18/2014 SURECLICK) 50 mg/mL (0.98 the skin once a mL) Pen Injector week. documented in this encounter Miscellaneous Notes Telephone Encounter - China Penn RN - 06/18/2013 1524 EST Faxed over prescription to [facility] for refill on Enbrel. FUR with PA in September. documented in this encounter Plan of Treatment Upcoming Encounters Date Type Specialty Care Team Description 02/28/2022 Office Visit Rheumatology Harsh Malloy, INCINERATOR PLANT SUPERVISOR [address] [facility], [facility], [address] [place], [place] [address] (Wo rk) documented as of this encounter Visit Diagnoses Not on filedocumented in this encounter Discontinued Medications Medication Sig Discontinue Reason Start Date End Date Etanercept (ENBREL Inject 50 mg into Reorder 01/25/201305/30 SURECLICK) 50 mg/mL the skin once a (0.98 mL) Pen Injector week. documented as of this encounter Care Teams Sports Doctor Relationship Specialty Start Date End Date Meredith Rapp MD PCP - General 08/09/10 08/04/18 [address] [place] [address] documented as of this encounter
--- OUTSIDE RECORDS SUMMARY | 2022-02-08 01:52 | XMS_ITS | Encounter Summary ---
:1970 Author Organization [facility] Address [address] [place] [address] Care Team Providers Name Role Phone Meredith Rapp MD Primary Care Provider Reason for Referral Medication Prior Authorization (Routine) - Closed Specialty Diagnoses / Procedures Referred By Contact Refer red To Contact Diagnoses Psoriasis with arthropathy (HCC) Nat Sutherland MD [address] [place] [address] Referral ID Status Reason Start Expiration Visits Visits Date Date Requested Authorized Closed Medication Prior 1 1 Authorization 6 Question Answer Medication to be Prior Authorized: ??Etanercept (ENBRE L SURECLICK) 50 mg/mL (0.98 mL) pen injector, Inject 50 mg i nto the skin once a week. Comments The purpose of this consult request is t o inform the scheduling staff that a medication needs to be prior-authorized before it is prescribed and/or administered. Encounter Details Date Type Department Care Team Description 02/19/[address] [facility] Karsten, Rocco with Rheumatology & MIAN Maurer arthropathy ( [facility]) Immunology - Main [place] (Primary Dx) [address] [place] [address] Social History Tobacco Use Types [...] Office Visit Rheumatology Harsh Malloy NP [address] [facility], [facility], [address] [place], [place] [address] (Wo rk) Scheduled Referrals Name Type Priority Associated Order Schedule Diagnoses AMB MEDICATION PRIOR Outpatient Referral Routine Psoriasis wit h Ordered: AUTHORIZATION arthropathy 02/19/2016 ([facility]) documented as of this encounter Visit Diagnoses Diagnosis Psoriasis with arthropathy (HCC) - Prima ry Psoriatic arthropathy documented in this encounter Care Teams Clinic Nurse Relationship Specialty Start Date End Date Meredith Rapp MD PCP - General 08/09/10 08/04/18 [address] [place] [address] documented as of this encounter
--- OUTSIDE RECORDS SUMMARY | 2022-02-08 01:52 | XMS_ITS | Encounter Summary ---
:1970 Author Organization [facility] Address [address] [place] [address] Care Team Providers Name Role Phone Meredith Rapp MD Primary Care Provider Reason for Visit Reason Onset Date Comments Medications Refill 01/05/2016 Encounter Details Date Type Department Care Team Description 01/05/2016 Refill [facility] Darrian Hernandez MD Medications Refill Rheumatology & Immunology [address], [address] [place], [place] [id number] [place] [address] [phone] (Wo rk) Social History Tobacco Use [...] 1 Tab by mouth 2 180 Tab 1 0 01/05/2016 04/03/2016 mg tablet times daily with breakfast and dinner. documented in this encounter Miscellaneous Notes Telephone Encounter - Talisha Loja RN - 01/05/2016 0753 EDT From: Nina Boothe To: Etelvina Hernandez MD Sent: 01/05/2016 5:18 EDT Subject: Medication Renewal Request Original authorizing provider: MD Nina Turner would like a refill of the following medications: naproxen (NAPROSYN) 500 mg tablet [Etelvina Hernandez MD] Preferred pharmacy: [facility] - [address] Comment: Please send to [facility] mail pharmacy. Thank you! documented in this encounter Plan of Treatment Upcoming Encounters Date Type Specialty Care Team Description 02/28/2022 Office Visit Rheumatology Harsh Malloy, SPECIALTY PLANT SUPERVISOR [address] [facility], [facility], [address] [place], [place] [address] (Wo rk) documented as of this encounter Visit Diagnoses Not on filedocumented in this encounter Discontinued Medications Medication Sig Discontinue Reason Start Date End Date naproxen (NAPROSYN) 500 take 1 tablet by Reorder 07/13/2013 01/05/2016 mg tablet mouth twice a day with food if needed for pain documented as of this encounter Care Teams Correctional Counselor Relationship Specialty Start Date End Date Meredith Rapp MD PCP - General 08/09/10 08/04/18 [address] [place] [address] documented as of this encounter
--- OUTSIDE RECORDS SUMMARY | 2022-02-08 01:52 | XMS_ITS | Encounter Summary ---
:1970 Author Organization [facility] Address [address] [place] [address] Care Team Providers Name Role Phone Meredith Rapp MD Primary Care Provider Reason for Referral Medication Prior Authorization (Routine) - Authorized Specialty Diagnoses / Procedures Referred By Contact Refer red To Contact Diagnoses Need for pneumococcal vaccination Psoriatic arthropathy (HCC) Encounter for long-term (current) use of medications Hammer toes of both feet Psoriasis with arthropathy (HCC) Harsh Malloy NP [address] [facility], [address] [place] [address] Referral ID Status Reason Start Expiration Visits Visits Date Date Requested Authorized [id number] Authorized Medication Prior 1 1 Authorization 8 Question Answer Medication to be Prior Authorized: Humira- failing enb rel Comments The purpose of this consult request is t o inform the scheduling staff that a medication needs to be prior-authorized before it is prescribed and/or administered. 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 Need for pneumococcal vaccination; Immunology - Main 111 [facility] r for long-term (current) use of medications; [address] Hammer toes of both feet; [address] [facility], [facility] Psoriasis with arthropathy ( [facility]) ([facility]) [place] [address] [facility], [place] [address] (Wo rk) Social History Tobacco [...] Reading Time Taken Comments Blood Pressure 119/70 05/14/2017 1056 EST Pulse 78 05/14/2017 1056 EST Temperature - - Respiratory Rate - - Oxygen Saturation - - Inhaled Oxygen Concentration - - Weight 67.1 kg (148 lb) 05/14/2017 1056 EST Height 164.5 cm (5' 4.76) 05/14/2017 1056 EST Body Mass Index 24.81 05/14/2017 1056 EST documented in this encounter Functional Status [...] Diagnoses Diagnosis L40.50 Arthropathic psoriasis, 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[ICD-10-CM] Z23 Encounter for immunization-Z23[ICD-1 0-CM] documented in this encounter Patient Instructions Patient InstructionsHarsh Malloy NP - 05/14/2017 11:00 EST 1. We will prior authorization for Humira which may take up to two weeks, if you don't hear from theclinic please call. Continue Enbrel until you received the Humira. 2. Pneumonia 13 given today. Previous pneumonia 23 which you have had 2 vaccine of. 3. Please get labs today 4. F/U 3 months documented in this encounter Ordered Prescriptions Prescription Sig Dispensed Refills Start Date End Date adalimumab (HUMIRA PEN) 40 Every two weeks. 6 Pen 2 12/25/2017 mg/0.8 mL pen kit documented in this encounter Discharge Disposition Disposition Code Departure Means Destination Auto Discharge documented in this encounter Progress Notes China Haro - 05/14/2017 1100 EST REVIEW OF SYSTEMS: Yes No Yes No Fever X Joint pain x Weight gain or loss pounds (lbs) Duration of AM joint stiffness All day Eye pain or dryness X Numbness/tingling X Mouth or nose sores X Heart burn / Nausea X Chest pain X Diarrhea X Shortness of Breath X Blood in stool X Cough X Burning on urination X Skin rash x Hand/Foot color change in cold X Harsh Haynes NP - 05/14/2017 1100 EST Patient ID: Nina Boothe is a 46 y.o. y.o. female Subjective: Chief Complaint: Joint Pain (knees, elbows, hands) and Back Pain (lower back) HPI: Here for follow up of psoriatic arthritis on enebrel and methotrexate. Last seen in clinic by Dr. Hernandez on 11/12/2016. MTX was increased to 8 tabs po weekly at last visit and recommended to switch to Humira if worsening. Changes since last visit: Nina received voice mail regarding increased Cr. and will recheck labs today. She is not using any NSAIDs. Increased discomfort to joint for past 2 month which is affecting her activities especially her knees and hands, elbows and new onset Low back pain x 2-3 months- has not tried any tylenol for it, does not corrilate with exercising, denies any neuropathy or radiculopathy. Psoriasis- mostly doing well, using topical intermittnetly with relief. Denies injection site reactions, chest pain, SOB, fever, infection, oral or nasal sores, cough, changes to bowel or bladder, GI distress. Denies any other joint pains or swelling. AM stiffness: 2-3 Physical activity: not sedentary, getting 10,000 steps per day plus work outs before and after work including core exercises. Patient Active Problem List Diagnosis ??? Psoriasis with arthropathy ([facility]) ??? Encounter for long-term (current) use of medications ??? Hypertensive disorder ??? Environmental allergies ??? Psoriasis ??? Psoriasis with arthropathy ([facility]) Past Medical History: Diagnosis Date ??? Abnormal Pap smear in remote past ??? Allergy ??? Arthritis ??? Hypertension ??? Hyperthyroidism history of this, now resolved ??? Migraine ??? Psoriasis Past Surgical History: Procedure Laterality Date ??? KNEE ARTHROSCOPY bilateral knees ??? TUBAL LIGATION ??? TUBAL LIGATION Allergies Allergen Reactions ??? Asa [Aspirin] Hives Current Outpatient Prescriptions: acetaminophen (TYLENOL) 500 mg tablet betamethasone dipropionate 0.05 % lotion calcipotriene (DOVONEX) 0.005 % cream cetirizine (ZYRTEC) 10 mg tablet clobetasol (TEMOVATE) 0.05 % external solution clobetasol (TEMOVATE) 0.05 % ointment DOCUSATE SODIUM (COLACE ORAL) ENBREL SURECLICK 50 mg/mL (0.98 mL) pen injector fluocinonide (LIDEX) 0.05 % ointment FLUTICASONE PROPIONATE (FLUTICASONE INHL) folic acid (FOLVITE) 1 mg tablet lisinopril (PRINIVIL, ZESTRIL) 10 mg tablet loratadine-pseudoephedrine (CLARITIN-D 24 HOUR) 10-240 mg per tablet methotrexate 2.5 mg tablet montelukast (SINGULAIR) 10 mg tablet Multivitamins with Minerals Tab naproxen (NAPROSYN) 500 mg tablet oxybutynin (DITROPAN) 5 mg tablet Salicylic Acid 6-6 % KtSG triamcinolone (KENALOG) 0.1 % cream No current facility-administered medications for this visit. ROS - SEE HPI REVIEW OF SYSTEMS: Yes No Yes No [...] X Hand/Foot color change in cold X I reviewed the 10 point ROS performed by the nurse which is as documented in Prism. Objective: BP 119/70 Pulse 78 Ht 164.5 cm (64.76) Wt 67.1 kg (148 lb) BMI 24.81 kg/m2 PHYSICAL EXAM: General: No acute distress. Alert, fully oriented, pleasant, conversant. HEENT: Conjunctivae/corneas clear. Pupils equal, Sclerae anicteric. Mucus membranes moist; oropharynx clear. Neck supple, symmetrical, trachea midline Lungs: Clear to auscultation bilaterally. Heart: Regular rate and rhythm, S1, S2 present, no murmur Abdomen: Soft, non-tender, non-distended. Extremities: Extremities without cyanosis or edema. Skin: Mild erythremic smooth patch to left lateral forearm- healing psoriasis patch Musculoskeletal: Spine: Right sided low back pain with extension only. No significant tenderness to palaption. Normal range of motion of the spine. Shoulder/Elbow: No significant tenderness, swelling, effusions, erythema or warmth is present. Appropriate range of motion present. Wrist/Hand: Mild hyperextention of 2-3 DIPs. Tenderness to left 5th PIP. Bony hypertrophy to bilateral 3rd PIP's. No significant tenderness, swelling, effusions, erythema or warmth is present. Appropriate range of motion present. Hips/Knee: Bilateral crepitous to knee, left knee with discomfort on full flexion. No significant tenderness, or erythema or warmth is present. Appropriate range of motion present. Ankle/Foot: No significant tenderness, swelling, effusions, erythema or warmth is present. Appropriate range of motion present. LABS: 05/06/2017: CMP normal except: Cr 1.09 GFR 53 WBC 8.08, Hgb 13.5, MCV 90.7, plt 299, AST 29, ALT 55 (nl <59) RAPID3 Summary Functional Status: 1 Pain Tolerance: 8 Global Estimate: 5 Score: 14 Interpretation: High ASSESSMENT: 1. Psoriatic arthritis- reporting having joint pain to elbows, knees hand and now low back which didnot improve with increase of MTX from 7 to 8 tabs 11/12/2016. No synovitis to hands or feet. No tenderness on palpation of low back. Low back pain to right side only with extension. Denies any infections or injection site reactions. Will try switching to Humira. PA for Humira and RX placed today. Iris decline nursing visit today for Humira and does not think she will have any trouble with it. She willcall if necessary. Plan: continue Enbrel until she receives Humira. Patient is currently on biologic therapy. Patient should receive either the PPSV23 or PCV13 vaccine,if indicated based on the CDC recommendations, either at the rheumatology office or PCP office. 2. Psoriasis- mild erythremic healing patch to left lateral forearm treating with clobetasol topically with resolution 3. Abnormal lab-Creatinine Mildly elevated at 1.09 with GFR 53 on 05/06/2017 labs. Will recheck today. She is not using any NSAIDS. She is also on lisinopril and oxybutynin. 4. Need for pneumonia vaccine - pneumonia 13 given today. Patient is currently on biologic therapy. Patient should receive either the PPSV23 or PCV13 vaccine, if indicated based on the CDC recommendations, either at the rheumatology office or PCP office. 5. 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 Need for pneumococcal vaccination Yes PLAN: 1. We will prior authorization for Humira which may take up to two weeks, if you don't hear from theclinic please call. Continue Enbrel until you received the Humira. 2. Pneumonia 13 given today. Previous pneumonia 23 which you have had 2 vaccine of. 3. Please get labs today 4. F/U 3 months 1. Need for pneumococcal vaccination PNEUMOCOCCAL CONJ VACC PCV13 IM No orders of the defined types were placed in this encounter. Barriers to learning identified: No Patient verbalizes understanding and agrees with plan Yes I was directly supervised by: Dr. Acuña. They were present in clinic and available for consult if needed. Harsh Malloy NP 05/14/2017 11:03 Attestation statement: Supervising Physician Chuck Acuña MD documented in this encounter Plan of Treatment Upcoming Encounters Date Type Specialty Care Team Description 02/28/2022 Office Visit Rheumatology Harsh Malloy, ELB[place] 111 [facility], [facility], [address] [place], [place] [address] (Wo rk) Scheduled Referrals Name Type Priority Associated Diagnoses Order S chedule AMB MEDICATION PRIOR Outpatient Routine Need for Ordered : AUTHORIZATION Referral pneumococcal 05/14/2017 vaccination Psoriatic arthropathy ([facility]) ([facility]) Encounter for long-term (current) use of medicatio ns Hammer toes of both feet Psoriasis with arthropathy ([facility]) ([facility]) documented as of this encounter Results COMPREHENSIVE METABOLIC PANEL (CMP) (05/14/2017 11:56 EST) Potassium 4.2 3.5 - 5.0 [facility] mEq/L [facility] Sodium 141 136 - 145 [facility] mEq/L [facility] Chloride 103 96 - 110 [facility] mEq/L [facility] CO2 26 22 - 32 mEq/L [facility] Total Alkaline 61 38 - 126 U/L [facility] Phosphatase [facility] Bilirubin, Total 0.6 <1.4 mg/dl [facility] AST 26 15 - 46 U/L [facility] ALT 36 <53 U/L [facility] Albumin 4.5 3.4 - 4.9 [facility] g/dl [facility] Total Protein 7.6 6.3 - 8.2 [facility] g/dl [facility] Creatinine 0.89 0.52 - 1.04 [facility] mg/dl [facility] GFR, Calculated 77 >60 [facility] Comment: ml/min/1.73m2 [facility] eGFR calculated using CKD-EPI equation for SERVICES non Americans. Multiply eGFR by 1.16 for Americans. BUN 18 10 - 26 mg/dl [facility] Calcium 9.5 8.5 - 10.5 [facility] mg/dl [facility] Calculated Calcium 9.1 8.5 - 10.5 [facility] mg/dl [facility] Glucose, Serum 86 70 - 100 [facility] mg/dl [facility] Fasting? No [facility] Specimen Blood specimen (specimen) - Blood Performing Organization Address City/State/ZIP Code Phon e Number [facility] [address] [place] [address] SERVICES HEMAGRAM AND DIFFERENTIAL (05/14/2017 11:56 EST) Pathologist Sig nature WBC 7.79 4.0 - 12.4 [facility] RBC 4.67 3.86 - 5.04 [facility] Hemoglobin 14.5 11.6 - 15.2 [facility] gm/dl LAB[facility] HCT 41.7 34.9 - 44.4 % [facility] MCV 89 81 - 98 fl [facility] MCH 31.0 26.7 - 33.3 pg [facility] MCHC 34.8 32.1 - 35.9 [facility] gm/dl LABORATORY SERVICES RDW-CV 14.5 <14.7 % [facility] RDW-SD 46.6 <50.4 fl [facility] PLT 302 141 - 377 K/[facility] LABORATORY SERVICES MPV 9.7 9.5 - 12.7 fl [facility] Neutrophils 60.5 % [facility] Lymphocytes 28.4 % [facility] Monocytes 8.6 % [facility] Eosinophils 1.4 % [facility] Basophils 0.6 % [facility] Immature Grans 0.5 % [facility] ABS Neutrophils 4.71 2.20 - 8.85 [facility] SERVICES ABS Lymphs 2.21 1.09 - 3.30 [facility]ORATORY SERVICES ABS Monocytes 0.67 0.1 - 0.8 /[facility] LABORATORY SERVICES ABS Eosinophils 0.11 0.03 - 0.61 [facility]ORATORY SERVICES ABS Basophils 0.05 0.01 - 0.11 [facility]OR[facility]ORY SERVICES ABS Immature Grans 0.04 0 - 0.06 /[facility]OR[facility]ORY SERVICES Type of Diff: Automated [facility] Specimen Blood specimen (specimen) - Blood Performing Organization Address City/State/ZIP Code Phon e Number [facility] [address] [place] [address] SERVICES documented in this encounter Visit Diagnoses Diagnosis Psoriatic arthropathy (HCC) - Primary Psoriatic arthropathy Need for pneumococcal vaccination Need for prophylactic vaccination agains t streptococcus pneumoniae (pneumococcus) Encounter for long-term (current) use of medications Encounter for long-term (current) use of other medications Hammer toes of both feet Psoriasis with arthropathy (HCC) Psoriatic arthropathy documented in this encounter Discontinued Medications Medication Sig Discontinue Reason Start Date End Date naproxen (NAPROSYN) 500 Take 1 Tab by mouth 2 Side effects 04/03/20 16 05/14/2017 mg tablet times daily with breakfast and dinner. documented as of this encounter Historical Medications This list may reflect changes made after this encounter. Medication Sig Dispensed Refills Start Date End Date DOCUSATE SODIUM (COLACE Take by mouth. 0 ORAL)Indications: Need for pneumococcal vaccination, Psoriatic arthropathy (HCC), Encounter for long-term (current) use of medications, Hammer toes of both feet, Psoriasis with arthropathy (HCC) added in this encounter Orders Immunization/Injection Count Last Ordered Date First O rdered Date PNEUMOCOCCAL CONJ VACC PCV13 IM 1 05/14/2017 documented in this encounter Care Teams Dehydrogenation Supervisor Relationship Specialty Start Date End Date Meredith Rapp MD PCP - General 08/09/10 08/04/18 [address] [place] [address] documented as of this encounter
--- OUTSIDE RECORDS SUMMARY | 2022-02-08 01:52 | XMS_ITS | Encounter Summary ---
:1970 Author Organization [facility] Address [address] [place] [address] Care Team Providers Name Role Phone Meredith Rapp MD Primary Care Provider Reason for Referral Other Type (Routine/Next Available) - Closed Specialty Diagnoses / Procedures Referred By Contact Refer red To Contact Diagnoses Psoriatic arthritis (HCC) Other psoriasis Tabatha Degroot PA-C [address] [place] [address] Referral ID Status Reason Start Date Expiration Date Visits Requ ested Visits Authorized [id number] Closed Other 07/08/2012 1 1 Question Answer Medication to be Prior Authorized: Enbrel 50 mg SC onc e weekly Comments The purpose of this consult request is t o inform the scheduling staff that a medication needs to be prior-authorized before it is prescribed and/or administered. Reason for Visit Reason Comments Joint Pain all over Encounter Details Date Type Department Care Team Description 07/08/2012 Office Visit [facility] Tabatha Degroot Psoria tic arthritis ([facility]) (Primary Dx); Rheumatology & MGUNJAN Other psoriasis; Immunology - Main [address] Loweer for long-term (current) use of other medications [employer] [address] [place] [address] [place] [address] Social History Tobacco Use Types Packs/Day Years Used Date Never Smoker Smokeless Tobacco: Never Used Alcohol Use Standard Drinks/Week Comments No 0 (1 standard drink = 0.6 oz pure alcoho l) Sex Assigned at Date Recorded Female 06/29/2019 10:58 EST documented as of this encounter Last Filed Vital Signs Vital Sign Reading Time Taken Comments Blood Pressure 130/71 07/08/2012 0851 EDT Pulse 51 07/08/2012 0851 EDT Temperature - - Respiratory Rate 18 07/08/2012 0851 EDT Oxygen Saturation - - Inhaled Oxygen Concentration - - Weight 76.7 kg (169 lb) 07/08/2012 0851 EDT Height 165.4 cm (5' 5.1) 07/08/2012 0851 EDT Body Mass Index 28.04 07/08/2012 0851 EDT documented in this encounter Patient Instructions Patient InstructionsStTabatha hendrickson PA - 07/08/2012 9:59 EDT We have requested prior authorization for Enbrel. This is an injection you will give yourself once weekly. It may take up to 2 weeks to receive approval. In the meantime, please go to the lab to have your blood drawn. Also have a PPD (tuberculin skin test) placed and read through your primary care office. Continue your current medications. As long as the above tests are normal, we will contact you once we receive approval for Enbrel. We will give you a prescription and schedule an appointment for you to come back in so that we can teach you how to administer it. Please give us a call if you have any questions throughout this process. Follow up with Dr. Hernandez as previously scheduled. documented in this encounter Progress Notes UNION STEWARD, MERISSA 2 - 07/14/2012 0843 EDT TSTabatha bruno PA - 07/08/2012 0853 EDT Images from the original note were not included. Division of Rheumatology and Clinical Immunology Chief Complaint Patient presents with ??? Joint Pain all over HPI: 41 year old female with a history of psoriatic arthritis here for an urgent visit for increasing joint pain. Generally followed by Dr. Hernandez. Last seen in clinic ~4 1/2 months ago. Arthralgias and psoriasis previously well controlled on Methotrexate 22.5 mg weekly. However, labs obtained in mid-May revealed elevated LFTs (2-3 x the upper limit of normal). Methotrexate was subsequently held for 1 week and LFTs normalized. Restarted Methotrexate 15 mg weekly at the end of May. Now having a lot of joint pain on the lower dose. Affected joints: Neck - Ok (pretty much the only area that is ok) Shoulders - Right shoulder sore, feels it more when exercising Elbows - Right elbow swollen and tender Wrists/hands/fingers - Stiff, fingers a little swollen, not as bad as they've been before, right hand is worse, is right-handed, uses her hands a lot at work - on a computer all day Lower back - New complaint, sore, has never bothered her before Hips - Right hip sore, hurts when exercising Knees - Both knees painful Ankles/feet/toes - Toes definitely swell, feet sore AM stiffness: Lasts all morning Psoriasis also recently worsening, as pointed out by her hairdresser. Currently limited to scalp. Itchy. Sometimes breaks out on elbows and abdomen as well but not recently. Has Clobetasol solution forscalp but doesn't use it much as she doesn't think it helps. 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 loratadine-pseudoephedrine (CLARITIN-D 24 HOUR) 10-240 mg per tablet Take 1 Tab by mouth daily as needed. ??? Multivitamins with Minerals Tab Take 1 Tab by mouth daily. ??? naproxen (NAPROSYN) 500 mg tablet Take 1 Tab by mouth 2 times daily as needed for Pain. Take with food first Takes twice daily. Tolerates ok, denies GI upset. 60 Tab 11 ??? methotrexate 2.5 mg tablet Take 9 Tabs by mouth once a week. Currently takes 6 tabs weekly. Tolerates ok without reported side effects. Denies oral ulcers or GI upset. No recent infections. 36 Tab 11 ??? folic acid (FOLVITE) 1 mg tablet Take 1 Tab by mouth daily. 90 Tab 3 ??? clobetasol (TEMOVATE) 0.05 % external solution Apply topically twice a day to scalp. Do not apply to face, armpit or groin. 50 mL 1 ??? Salicylic Acid 6-6 % KtSG Topically once daily to affected areas 1 Bottle 11 ??? acetaminophen (TYLENOL) 500 mg tablet Take 1,000 mg by mouth every 6 hours as needed. Only takes if Naproxen not working, on average a couple of times per week. ??? atenolol (TENORMIN) 50 mg tablet Take [...] Mother History Social History ??? Marital Status: Social History Main Topics ??? Smoking status: Never Smoker ??? Smokeless tobacco: Never Used ??? Alcohol Use: No ??? Drug Use: No REVIEW OF SYSTEMS: Yes No Yes No Fever x Joint pain x Fatigue x Muscle pain x Night sweats x Morning stiffness x Weight change x If yes, duration All morning Gain or loss? Loss Numbness/tingling x Eye discomfort x Headaches x [...] well nourished female in no acute distress. Appears younger than stated age. BP 130/71 Pulse 51 Resp 18 Ht 165.4 cm (65.1) Wt 76.658 kg (169 lb) BMI 28.04 kg/m2 HEENT: PERRL, EOM's intact, conjuctiva clear, no occular inflammation. Oropharynx clear, throat normal without erythema or exudate, no oral ulcers. No lymphadenopathy. RESPIRATORY: Clear to auscultation bilaterally; no adventitious sounds. CARDIOVASCULAR: Regular rate and rhythm, normal S1S2, no murmurs/gallops/rubs. No pedal edema. SKIN: Large psoriatic plaques with silvery scale starting behind ears and extending towards occiput. NEUROLOGIC: Mental status normal. Gait normal without assistive device. Moves on/off exam table independently. Muscle strength 5/5 throughout. MUSCULOSKELETAL: A complete msk exam including bilateral upper and lower extremities was done and was normal except for abnormal findings shown on homonculus. LABS: Obtained externally 06/18/12 - AST 17, ALT 32 Obtained externally 06/10/12 - CMP: Creatinine slightly elevated (1.1), BUN normal (9), electrolytes normal, AST elevated (110), ALT elevated (146) CBC: Normal Diagnosis / Assessment: Psoriatic arthritis. Flaring on lower dose of Methotrexate. Unfortunately we don't have much room toadjust Methotrexate due to recent elevation in liver enzymes. All ready on an NSAID. Next logical step is to start a TNF-alpha inhibitor. Patient is all ready familiar with Enbrel as her sister is on it (for psoriatic arthritis as well) - is ready to proceed with the same for herself. Will need PPD and hepatitis screening first. Psoriasis. Also flaring on lower dose of Methotrexate. Should benefit from starting TNF-alpha inhibitor as discussed above. Continue topical corticosteroids as needed. Encounter for long-term use of medication. Will recheck labs today now that she is back on Methotrexate. Plan to follow closely. Recommendations/Evaluation: 1. Prior authorization for Enbrel (50 mg SC once weekly) requested. Dosing guidelines and common side effects reviewed. Written handout issued. 2. Continue current medications including Methotrexate 15 mg weekly for now. May be able to titrate to a lower dose once on Enbrel. 3. Labs (CBC/CMP/ESR/hepatitis screening) today. Repeat CBC and CMP every 2 months to monitor for toxicity. 4. PPD ordered - at patient's preference, will be placed and read through primary care office. 5. As long as labs and PPD are negative, will have nursing contact Iris to set up an appointment formedication training once prior authorization for Enbrel approved. 6. Follow up with Dr. Hernandez as previously scheduled (next appointment in September), sooner as needed. Barriers to learning identified: No Patient verbalizes understanding and agrees with plan: Yes I was directly supervised by Dr. Rollins who was in the suite and immediately available for the entiretime the service was provided. MICHAEL Sahni 07/08/2012 9:27 Electronically signed by Katelin Rollins MD documented in this encounter Plan of Treatment Upcoming Encounters Date Type Specialty Care Team Description 02/28/2022 Office Visit Rheumatology aHrsh Malloy NP [address] [facility], [address] [place], [place] [address] (Wo rk) Scheduled Orders Name Type Priority Associated Diagnoses Order S chedule HEMAGRAM AND DIFFERENTIAL Lab Routine Psoriatic arthr itis Expected: 07/08/2012 ([facility]) (Approximate), Other psoriasis Expires: 07/08/2013 Encounter for long-term (current) use of other medications COMPREHENSIVE METABOLIC Lab Routine Psoriatic arthrit is Expected: 07/08/2012 PANEL (CMP) ([facility]) (Approximate), Other psoriasis Expires: 07/08/2013 Encounter for long-term (current) use of other medications Scheduled Referrals Name Type Priority Associated Order Schedule Diagnoses AMB MEDICATION PRIOR Outpatient Referral Routine Psoriatic art hritis Ordered: AUTHORIZATION ([facility]) 07/08/2012 Other psoriasis documented as of this encounter Results SED. RATE:KENAN (07/08/2012 10:18 EDT) Pathologist Sig nature Sed. Rate Kenan 4 0 - 20 mm/hr [facility] Specimen Blood specimen (specimen) Performing Organization Address [facility]/ZIP Code Phon e Number [facility] [address] [place] [address] SERVICES [facility] [address] [place] [address] HEPATITIS C ANTIBODY (07/08/2012 10:18 EDT) Pathologist Sig nature Hepatitis C Ab NegativeComment: [facility] Reference Range: Negative Specimen Blood specimen (specimen) Performing Organization Address [facility] Phon e Number [facility] [address] [place] [address] SERVICES [facility] [address] [place] [address] HEPATITIS B SURFACE ANTIGEN (07/08/2012 10:18 EDT) Hepatitis B Surface NegativeComment: [facility] Ag Reference Range: Negative Specimen Blood specimen (specimen) Performing Organization Address [facility] Phon e Number [facility] [address] [place] [address] SERVICES [facility] [address] [place] [address] HEPATITIS B SURFACE ANTIBODY (07/08/2012 10:18 EDT) Hepatitis B Surface Negative [facility] Comment: Reference Range: Unvaccinated: ??Negative Vaccinated: ??Positive HBs Antibody, Quant <5.0 mIU/mL [facility] Comment: Patient is presumed to not be immune to infection with HBV. Reference Range: Positive: >=12.0 mIU/mL Indeterminate: >=5.0 to <12.0 mIU/mL Negative: <5.0 mIU/mL Specimen Blood specimen (specimen) Performing Organization Address [facility] Phon e Number [facility] [address] [place] [address] SERVICES [facility] [address] [place] [address] HEPATITIS B CORE ANTIBODY (07/08/2012 10:18 EDT) Hep B Core Ab Negative [facility] Comment: Reference Range: ??Negative Interpretation depends on clinical setting. Specimen Blood specimen (specimen) Performing Organization Address [facility] Phon e Number [facility] [address] [place] [address] SERVICES [facility] [address] [place] [address] documented in this encounter Visit Diagnoses Diagnosis Psoriatic arthritis (HCC) - Primary Psoriatic arthropathy Other psoriasis Encounter for long-term (current) use of other medications documented in this encounter Care Teams Front Office Spec Relationship Specialty Start Date End Date Meredith Rapp MD PCP - General 08/09/10 08/04/18 [address] [place] [phone] documented as of this encounter
--- OUTSIDE RECORDS SUMMARY | 2022-02-08 01:52 | XMS_ITS | Encounter Summary ---
:1970 Author Organization [facility] Address [address] [place] [address] Care Team Providers Name Role Phone Meredith Rapp MD Primary Care Provider Encounter Details Date Type Department Care Team Description 12/04/2012 Results Only [facility] Meredith Rapp MD Laboratory Services - [facility] [id number] [facility] [address] [place] [address] [phone] Social History Tobacco Use Types Packs/Day Years Used Date Never Smoker Smokeless Tobacco: Never Used Alcohol Use Standard Drinks/Week Comments No 0 (1 standard drink = 0.6 oz pure alcoho l) Sex Assigned at Date Recorded Female 06/29/2019 10:58 EST documented as of this encounter Plan of Treatment Upcoming Encounters Date Type Specialty Care Team Description 02/28/2022 Office Visit Rheumatology Harsh Malloy, RN BUILDING [address] [facility], [address] [place], [place] [address] (Wo rk) documented as of this encounter Procedures Procedure Name Priority Date/Time Associated Diagnosis Comme nts PAP TEST- RESULT Routine 12/04/2012 0:00 EDT Resu lts for this ONLY procedure are i n the results section. documented in this encounter Results PAP TEST- RESULT ONLY (12/04/2012 0:00 EDT) Pathology Report: CYTOPATHOLOGY REPORT [facility] Reports generated via electronic interface contain thomas ginal data; however they are lacking the format of the original re port. Caution should be taken when reading/interpreting unfo rmatted reports. Name: ? REILLY HUI ? Accession #: ? [id number] ? : ? 1970 (Age: 42) ??F ?Collect Da te: ? 12/04/2012 ? Location: ? [facility] ? Receive Date: ? 013 ? Provider: MEREDITH RAPP MD Copy to: ? Final Report SPECIMEN ADEQUACY ? Satisfactory for Evaluation - transformation zone component present GENERAL CATEGORIZATION ? Negative for Intraepithelial Lesion or Malignan cy INTERPRETATION ? Reactive cellular bryant nges associated with inflammation present (includes repair). Last Menstrual Period: 11/13/12 Specimen/Source: ??Pap Test, Endocervix, ThinPrep Imag ing System with manual evaluation Document reviewed and electronically signed by: ? GRACIELA CARCAMO MD [facility] ? Report ??Date: 12/15/2012 17:48 HPV with Pap Test ? Date Ordered: ? 12/15/2012 ? Status: ?? Signed Out ?Date Complete: ? 12/17/2012 ? By: ??S ystem Interface ? Date Reported: ? 12/17/2012 ? Interpretation RESULT: Negative for HPV. No E6 or E7 mRNA is detected from HPV types 16,18,31,3 3,35, 39,45,51,52,56,58,59,66, and 68 by acetylene cylinder packing mixer media bacilio amplification. Comments Document reviewed and electronically signed by: ? System Interface ? Report date: 12/17/2012 By the signature above, the attending physician certif ies that he/she has personally conducted a gross and/or microscopic examin ation of the described specimens and rendered or confirmed the above diagnosi s. End of Report Specimen Performing Organization Address City/State/ZIP Code Phon e Number [facility] [address] [place] [address] SERVICES [facility] [address] [place] [address] documented in this encounter Visit Diagnoses Not on filedocumented in this encounter Care Teams Duct Cleaner Relationship Specialty Start Date End Date Meredith Rapp MD PCP - General 08/09/10 08/04/18 [address] [place] [address] documented as of this encounter
--- OUTSIDE RECORDS SUMMARY | 2022-02-08 01:52 | XMS_ITS | Encounter Summary ---
:1970 Author Organization [facility] Address [address] [place] [address] Care Team Providers Name Role Phone Meredith Rapp MD Primary Care Provider Reason for Visit Reason Onset Date Comments Labs Only 01/20/2014 standing order [facility] [id number] Encounter Details Date Type Department Care Team Description 01/20/2014 Orders Only [facility] Darrian Hernandez MD Psoriasis with Rheumatology & [address] [place] [address] arthropathy Immunology [facility] ([facility] (Primary [facility], [facility]) [id number] [place] [phone] (Wo rk) Social History Tobacco Use Types [...] Office Visit Rheumatology Harsh Malloy NP [address] [phone] (Wo rk) documented as of this encounter Visit Diagnoses Diagnosis Psoriasis with arthropathy (HCC) - Prima ry Psoriatic arthropathy documented in this encounter Care Teams Media Production Operator Relationship Specialty Start Date End Date Meredith Rapp MD PCP - General 08/09/10 08/04/18 [address] [place] [phone] documented as of this encounter
--- OUTSIDE RECORDS SUMMARY | 2022-02-08 01:52 | XMS_ITS | Encounter Summary ---
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); Rheumatology & [address] [place] [address] Encounter f or long-term (current) use of medications Immunology - [address] [place], [place] [phone] [place] [phone] (Wo rk) Social History Tobacco Use Types [...] documented as of this encounter Progress Notes Jacki Watt - 11/25/2016 0954 EDT Standing orders [facility] [id number] signed by Jacki Watt at 11/25/2016 10:14 EDTdocumented in this encounter Plan of Treatment Upcoming Encounters Date Type Specialty Care Team Description 02/28/2022 Office Visit Rheumatology Harsh Malloy NP [address] [facility], [address] [place], [place] [phone] (Wo rk) documented as of this encounter Visit Diagnoses Diagnosis Juvenile psoriatic arthritis (HCC-CMS) ( HCC) - Primary Psoriatic arthropathy Encounter for long-term (current) use of medications Encounter for long-term (current) use of other medications documented in this encounter Care Teams Sports Media Relationship Specialty Start Date End Date Meredith Rapp MD PCP - General 08/09/10 08/04/18 [address] [place] [address] documented as of this encounter
--- OUTSIDE RECORDS SUMMARY | 2022-02-08 01:52 | XMS_ITS | Encounter Summary ---
:1970 Author Organization [facility] Address [address] [place] [address] Care Team Providers Name Role Phone Meredith Rapp MD Primary Care Provider Reason for Visit Reason Comments Hand Pain has been off Enbrel x two we eks due to cold virus Encounter Details Date Type Department Care Team Description 04/18/2015 Office Visit [facility] Etelvina Hernandez S, Rhin itis medicamentosa (Primary Dx); Rheumatology & Psoriasis with arthropathy ([facility]) Immunology - Main [address] [place], [place] [id number] [place] [address], [place] [phone] (Wo rk) Social History Tobacco Use Types [...] Sign Reading Time Taken Comments Blood Pressure 130/84 04/18/2015 1003 EST Pulse 62 04/18/2015 1003 EST Temperature 36.9 ??C (98.4 ??F) 04/18/2015 1003 EST Respiratory Rate - - Oxygen Saturation - - Inhaled Oxygen Concentration - - Weight 68.9 kg (152 lb) 04/18/2015 1003 EST Height - - Body Mass Index 24.91 10/21/2014 1348 EDT documented in this encounter [...] as of this encounter Discharge Diagnoses Diagnosis J31.0 Chronic rhinitis-J31.0[ICD-10-CM] T48.5X1A Poisoning by other anti-common- cold drugs, accidental (unintentional), initial encounter-T48.5X1A[ICD-10-CM] L40.50 Arthropathic psoriasis, 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[ICD-10-CM] documented in this encounter Patient Instructions Patient InstructionsEtelvina Hernandez MD - 04/18/2015 10:44 EST Stop Afrin and all other decongestants Use nasal saline rinses, steam, Vicks or Mentholatum, keep hydrated in order to relieve congestion Increase methotrexate to 6 tabs a week Ok to restart Enbrel now Continue labs every 3-4 months documented in this encounter Ordered Prescriptions Prescription Sig Dispensed Refills Start Date End Date methotrexate 2.5 mg tablet Take 6 Tabs by 72 Tab 3 04/1807/14/2015 mouth once a week documented in this encounter Progress Notes Etelvina Hernandez MD - 04/18/2015 1013 EST Division of Rheumatology and Clinical Immunology Chief Complaint Patient presents with ??? Hand Pain has been off Enbrel x two weeks due to cold virus HPI: Patient here for follow-up of psoriatic arthritis. In the last few months, she has noted some mild increased hand pain, especially with using pen or a mouse. There may be slight swelling. The restof her joints are okay. She has been off her Enbrel for the past 2 weeks because of an upper respiratory infection. She began with fever and sore throat which lasted 2 days, but is now gone. She does not feel any sinus pressure and says it does not feel like when she has had sinusitis in the past. Shejust has congestion in her nose with clear secretions. Some fatigue and aches and pains. Nonproductive cough. No ear pain. Coworkers have had a similar respiratory infection. She has been using Afrin na huber spray fairly regularly for the past couple of weeks. This does contain a decongestant (oxymetazoline). Current Outpatient Prescriptions Medication Sig Dispense Refill ??? acetaminophen (TYLENOL) 500 mg tablet Take 1,000 mg by mouth every 6 hours as needed. ??? betamethasone dipropionate 0.05 % lotion Apply topically 2 times daily. Do not apply to face, armpit or groin.NOT TAKING 1 Bottle 3 ??? calcipotriene (DOVONEX) 0.005 % cream Apply topically once to twice daily to affected areas.NOT TAKING 60 g 11 ??? cetirizine (ZYRTEC) 10 mg tablet Take 10 mg by mouth daily. ??? clobetasol (TEMOVATE) 0.05 % external solution Apply topically twice a day to scalp. Do not apply to face, armpit or groin.NOT TAKING 50 mL 1 ??? clobetasol (TEMOVATE) 0.05 % ointment Apply topically to affected area at bedtime Apply nightly to the rash on elbow. Do not apply to face, armpit or groin..NOT TAKING 30 g 2 ??? Etanercept (ENBREL SURECLICK) 50 mg/mL (0.98 mL) pen injector Inject 50 mg into the skin once a week NOT TAKING 12 Pen 3 ??? FLUTICASONE PROPIONATE (FLUTICASONE INHL) Inhale as directed daily. ??? folic acid (FOLVITE) 1 mg tablet Take 1 Tab by mouth daily 90 Tab 3 ??? lisinopril (PRINIVIL, ZESTRIL) 10 mg tablet Take 10 mg by mouth daily ??? loratadine-pseudoephedrine (CLARITIN-D 24 HOUR) 10-240 mg per tablet Take 1 Tab by mouth daily as needed. NOT TAKING ??? methotrexate 2.5 mg tablet Take 5 Tabs by mouth once a week. 60 Tab 3 ??? montelukast (SINGULAIR) 10 mg tablet Take 10 mg by mouth daily ??? Multivitamins with Minerals Tab Take 1 Tab by mouth daily. ??? naproxen (NAPROSYN) 500 mg tablet take 1 tablet by mouth twice a day with food if needed for pain 180 Tab 1 ??? Salicylic Acid 6-6 % KtSG Topically once daily to affected areas NOT TAKING 1 Bottle 11 ??? triamcinolone (KENALOG) 0.1 % cream Apply topically 2 times daily as needed.NOT TAKING No current facility-administered medications for this visit. [...] No narrative on file REVIEW OF SYSTEMS: As documented by Nurses/MA???s during this visit and reviewed by me PHYSICAL EXAMINATION: BP 130/84 mmHg Pulse 62 Temp(Src) 36.9 ??C (98.4 ??F) Wt 68.947 kg (152 lb) Head and neck: Nasal mucosa appears red. There is no sinus tenderness. No exudate in the throat. No cervical nodes. Chest: Clear MSK: Tenderness over some of the hand joints although no obvious swelling. LABS from outside hospital January 2015: CMP normal, CBC normal. Diagnosis / Assessment: 1. Psoriasis with arthropathy She has some mild increased hand pain in the last few months. I think she would benefit from a slightly higher dose of methotrexate. 2. Rhinitis medicamentosa I think the use of the nasal spray decongestant has led to chronic nasal congestion. I do not think she has an active infection. Recommendations/Evaluation: Patient Instructions Stop Afrin and all other decongestants Use nasal saline rinses, steam, Vicks or Mentholatum, keep hydrated in order to relieve congestion Increase methotrexate to 6 tabs a week Ok to restart Enbrel now Continue labs every 3-4 months Follow up in 6 months with MICHAEL Mays and 6 months after with me Barriers to learning identified: No Patient verbalizes understanding and agrees with plan Yes Etelvina Hernandez MD 04/18/2015 10:41 Marisol Mcgraw RN - 04/18/2015 1006 EST REVIEW OF SYSTEMS: Yes No Yes No Fever X Joint pain x Weight gain or loss pounds (lbs) Duration of AM joint stiffness hours / min Eye pain or dryness x Numbness/tingling X Mouth or nose sores X [...] entire body? 0 f. Bend down to lease picker clothing from the floor? 0 g. [...] or feeling blue? 0 PAIN (PN) = 3 0-10 PATIENT GLOBAL (PTGE) = 3 0-10 RAPID3 SCORE (FN + PN + PTGE) = 6 0-30 HS: > 12 MS: 6.1 - 12 LS: 3.1 - 6 NR: ? 3 documented in this encounter Plan of Treatment Upcoming Encounters Date Type Specialty Care Team Description 02/28/2022 Office Visit Rheumatology Harsh Malloy NP [address] [facility] [place], [place] [address] (Wo rk) documented as of this encounter Visit Diagnoses Diagnosis Rhinitis medicamentosa - Primary Chronic rhinitis Psoriasis with arthropathy (HCC) Psoriatic arthropathy documented in this encounter Discontinued Medications Medication Sig Discontinue Reason Start Date End Date methotrexate 2.5 mg tablet Take 5 Tabs by Reorder 04/18/2014 04/18/2015 mouth once a week. documented as of this encounter Historical Medications This list may reflect changes made after this encounter. Medication Sig Dispensed Refills Start Date End Date lisinopril (PRINIVIL, Take 10 mg by mouth 0 ZESTRIL) 10 mg tablet daily added in this encounter Care Teams Medical Observer Relationship Specialty Start Date End Date Meredith Rapp MD PCP - General 08/09/10 08/04/18 [address] [place] [phone] documented as of this encounter
--- OUTSIDE RECORDS SUMMARY | 2022-02-08 01:52 | XMS_ITS | Encounter Summary ---
:1970 Author Organization [facility] Address [address] [place] [address] Care Team Providers Name Role Phone Meredith Rapp MD Primary Care Provider Reason for Visit Reason Comments Other Encounter Details Date Type Department Care Team Description 10/25/2013 Refill [facility] Gary Degroot, PAAltafC Other Rheumatology & Immunology - 55 F AYSURI PHILIP [address] [facility] [id number] [place] [id number] [phone] Social History Tobacco Use Types Packs/Day Years [...] take 1 tablet by 90 Tab 3 09/2810/21/2014 tablet mouth once daily documented in this encounter Plan of Treatment Upcoming Encounters Date Type Specialty Care Team Description 02/28/2022 Office Visit Rheumatology Harsh Malloy, ELBERT [address] [facility], [address] [place], [place] [address] (Wo rk) documented as of this encounter Visit Diagnoses Not on filedocumented in this encounter Discontinued Medications Medication Sig Discontinue Reason Start Date End Date folic acid (FOLVITE) 1 take 1 tablet by Reorder 10/07/2012 0 10/25/2013 mg tablet mouth once daily documented as of this encounter Care Teams Histology Tech Relationship Specialty Start Date End Date Meredith Rapp MD PCP - General 08/09/10 08/04/18 [address] [place] [address] documented as of this encounter
--- OUTSIDE RECORDS SUMMARY | 2022-02-08 01:53 | XMS_ITS | Encounter Summary ---
:1970 Author Organization [facility] Address [address] [place] [address] Care Team Providers Name Role Phone Meredith Rapp MD Primary Care Provider Reason for Visit Reason Comments Medications Refill pending Labs Only standing orders pended Follow-up psoriatic arthritis/ Encounter Details Date Type Department Care Team Description 10/07/2011 Office Visit [facility] Cecilia Bustos [place] ([facility] (Primary Dx); Rheumatology & D, PA Encounter for long-term (current) use of other medications Immunology - Main [address] [facility] [address] [place] [phone] Social History Tobacco Use Types Packs/Day Years Used Date Never Smoker Smokeless Tobacco: Never Used Alcohol Use Standard Drinks/Week Comments No 0 (1 standard drink = 0.6 oz pure alcoho l) Sex Assigned at Date Recorded Female 06/29/2019 10:58 EST documented as of this encounter Last Filed Vital Signs Vital Sign Reading Time Taken Comments Blood Pressure 100/66 10/07/2011 1404 EDT Pulse 68 10/07/2011 1404 EDT Temperature - - Respiratory Rate 14 10/07/2011 1404 EDT Oxygen Saturation - - Inhaled Oxygen Concentration - - Weight 78.9 kg (174 lb) 10/07/2011 1404 EDT Height - - Body Mass Index 28.08 07/30/2011 1455 EDT documented in this encounter Ordered Prescriptions Prescription Sig Dispensed Refills Start Date End Date folic acid (FOLVITE) 1 mg Take 1 Tab by mouth 90 Tab 3 0 10/07/2011 10/07/2012 tablet daily. methotrexate 2.5 mg tablet Take 9 Tabs by 108 Tab 3 10/0610/09/2011 mouth once a week. documented in this encounter Progress Notes Cecilia Bustos PA - 10/07/2011 1410 EDT Division of Rheumatology and Clinical Immunology Chief Complaint Patient presents with ??? Medications Refill pending ??? Labs Only standing orders pended ??? Follow-up psoriatic arthritis/ HPI: Ms. Nina Boothe is a 41 y.o. year old patient with psoriatic arthritis here for follow up. She is tolerating her higher dose methotrexate and is remembering to split dose her weekly mtx by using her Blackberry Alarm. Her joints feel much better on the 22.5 mg weekly, however her psoriasis isnot improving. She has tried many over the counter shampoos including T-gel and Head and Shoulders. She did not fill her Dovonex prescriptions because her co-pays exceeded $600. She is scheduled for a Dermatology appointment today. She has been more active lately and feels that even on days she over-exerts she is not nearly as sore or stiff as she used to be prior to methotrexate. She used to feel stiff and sore for days after a day of hard exercise, now she feels pain in the evening but recovers inthe morning. Outpatient Prescriptions Prior to Visit Medication Sig Dispense Refill ??? acetaminophen (TYLENOL) 500 mg tablet Take 1,000 mg by mouth every 6 hours as needed. ??? methotrexate 2.5 mg tablet Take 9 Tabs by mouth once a week. 108 Tab 3 ??? Calcipotriene 0.005 % Soln Apply to scalp daily. 1 Bottle 1 ??? calcipotriene (DOVONOX) 0.005 % cream Apply to rash on elbows and abdomen daily 1 Tube 1 ??? folic acid (FOLVITE) 1 mg tablet Take 1 Tab by mouth daily. 90 Tab 3 ??? atenolol (TENORMIN) 50 mg tablet Take 50 mg by mouth daily. ??? diphenhydrAMINE (BENADRYL) 25 mg capsule Take 25 mg by mouth every 4 hours as needed. ??? triamcinolone (KENALOG) 0.1 % cream Apply topically 2 times daily. ??? naproxen (NAPROSYN) 500 mg tablet Take 500 mg by mouth as needed. Allergies include: Asa REVIEW OF SYSTEMS: Yes No Yes No [...] w/cold x Hair Loss x PHYSICAL EXAMINATION: VITALS: BP 100/66 Pulse 68 Resp 14 Wt 78.926 kg (174 lb) LMP 09/24/2011 HEENT: NCAT, no evidence of uveitis Neck: Supple, with no thyroid enlargement. Full painless ROM. Heart: RR no murmurs Lungs: Clear to ascultation bilaterally Shoulders:Full ROM without pain Elbows:Full ROM without pain or swelling Wrists:Full ROM without pain or swelling Hands: Right MCP #2 synovitis. Complete fists with strong symmetric concrete hopper operator strength Hips: Full ROM without pain or swelling Knees:Full ROM without pain or swelling Ankles: Full ROM without pain or swelling Feet: R #3, #4 mtp tenderness without swelling Neuro: Gait is normal. Upper and lower extremity strength are symmetric and equal. Skin: psoriasis scalp and faint elbows Labs 07/2011 WBC 6.70 RBC 4.57 Hg 13.5 Hct 39.8 Plt 327 Alb 4.3 Creat 0.75 AST 23 ALT 28 Assessment: Psoriatic arthritis: Improving with methotrexate 22.5 mg split dosed weekly and naprosyn. Still mildactivity in her right hand and right foot. Would expect continued improvement from methotrexate dosechange less than 2 months ago, however, if no improvement at follow up she may need an additional agent. Briefly discussed anti-tnf agents and their side effects which could include increased risk of severe or life threatening infection, demyelinating neurologic disease, cytopenia, elevated liver enzymes, increased risk of cancer especially skin cancer. She expresses that she would like to try to avoid these biologics if possible. Psoriasis: Scalp involvement with mild peripheral joint psoriasis. Moderate improvement with methotrexate monotherapy. Suspect mtx will not be enough to control her psoriasis. She may need topicals or even anti-tnf therapy. Will defer to dermatology Encounter for long-term medication management: While on methotrexate we will continue to monitor labs every 2-3 months for liver toxicity. Michelle labs, as above, show no abnormalities. Recommendation: 1. Continue methotrexate 22.5 mg weekly with labs every 2-3 months 2. Naproxen as needed for pain 3. Monitor symptoms 4. Follow up in 2-[address] Hernandez No barriers to learning identified Patient verbalizes understanding and agrees with plan. MICHAEL Carr 10/07/2011 14:11 I was directly supervised by Dr. Gray and she was in the suite and immediately available for the entire time the service was provided. I was present in the clinic for consultation while the PA was seeing patients. Jl Gray MD. 10/08/2011 Jacki Shahid - 10/07/2011 7505 EDT Subjective: Patient ID: Nina Boothe is an 41 y.o. female. No chief complaint on file. HPI Patient Active Problem List Diagnoses ??? Psoriatic arthritis ??? Encounter for long-term (current) use of other medications ??? HTN (hypertension) ??? Environmental allergies Past Medical History Diagnosis Date ??? Allergy ??? Psoriasis ??? Migraine ??? Abnormal Pap smear in remote past ??? Hyperthyroidism history of this, now resolved ??? Hypertension Past Surgical History Procedure Date ??? Tubal [...] tobacco: Never Used ??? Alcohol Use: No Current Outpatient Prescriptions on File Prior to Visit Medication Sig Dispense Refill ??? acetaminophen (TYLENOL) 500 mg tablet Take 1,000 mg by mouth every 6 hours as needed. ??? methotrexate 2.5 mg tablet Take 9 Tabs by mouth once a week. 108 Tab 3 ??? folic acid (FOLVITE) 1 mg tablet Take 1 Tab by mouth daily. 90 Tab 3 ??? atenolol (TENORMIN) 50 mg tablet Take 50 mg by mouth daily. ??? diphenhydrAMINE (BENADRYL) 25 mg capsule Take 25 mg by mouth every 4 hours as needed. ??? triamcinolone (KENALOG) 0.1 % cream Apply topically 2 times daily. ??? naproxen (NAPROSYN) 500 mg tablet Take 500 mg by mouth as needed. Allergies Allergen Reactions ??? Asa (Aspirin) Review of Systems Constitutional: Negative for fever, weight loss and diaphoresis. HENT: Oral ulcers- no Eyes: Negative for pain. Dry eyes- no Respiratory: Negative for cough and shortness of breath. Cardiovascular: Negative for chest pain and palpitations. Fingers or toes turn white, blue in cold- no Gastrointestinal: Negative for heartburn, nausea, abdominal pain, diarrhea, constipation and blood in stool. Genitourinary: Negative for dysuria, frequency and hematuria. Musculoskeletal: Negative for myalgias and joint pain. Am stiffness- no Skin: Negative for itching and rash. sun sensitive rash- no Psoriasis- no Neurological: Negative for tingling, focal weakness and headaches. Psychiatric/Behavioral: Negative for depression. The patient is not nervous/anxious and does not have insomnia. All other systems reviewed and are negative. - See HPI Objective: BP 100/66 Pulse 68 Resp 14 Wt 78.926 kg (174 lb) LMP 09/24/2011 Physical Exam Assessment: Plan: Iris was seen today for no specified reason. Diagnoses and associated orders for this visit: Psoriatic arthritis Encounter for long-term (current) use of other medications Jacki Watt documented in this encounter Plan of Treatment Upcoming Encounters Date Type Specialty Care Team Description 02/28/2022 Office Visit Rheumatology Harsh Malloy, GEOTECHNICIAN [address] [facility], [address] [place], [place] [phone] (Wo rk) documented as of this encounter Visit Diagnoses Diagnosis Psoriatic arthritis (HCC) - Primary Psoriatic arthropathy Encounter for long-term (current) use of other medications documented in this encounter Discontinued Medications Medication Sig Discontinue Reason Start Date End Date calcipotriene (DOVONOX) Apply to rash on Insurance does not 012 10/07/2011 0.005 % cream elbows and abdomen cover daily Calcipotriene 0.005 % Apply to scalp Insurance does not 07/30/2011 10/07/2011 Soln daily. cover methotrexate 2.5 mg Take 9 Tabs by Reorder 07/30/20112011 tablet mouth once a week. folic acid (FOLVITE) 1 Take 1 Tab by Reorder 12/28/201009/26 mg tablet mouth daily. documented as of this encounter Care Teams Strength And Conditioning Coach Relationship Specialty Start Date End Date Meredith Rapp MD PCP - General 08/09/10 08/04/18 [address] [place] [address] documented as of this encounter
--- OUTSIDE RECORDS SUMMARY | 2022-02-08 01:53 | XMS_ITS | Encounter Summary ---
:1970 Author Organization [facility] Address [address] [place] [address] Care Team Providers Name Role Phone Meredith Rapp MD Primary Care Provider Encounter Details Date Type Department Care Team Description 10/24/2010 Phlebotomy Only [facility] Robotic Machine Operator, Neftali milleric arthritis ([facility]); - [facility] Encounter for long-term (cur rent) use of other medications [address] [place], [place] [address] Social History Tobacco Use Types Packs/Day Years Used Date Never Smoker Alcohol Use Standard Drinks/Week Comments No 0 (1 standard drink = 0.6 oz pure alcoho l) Sex Assigned at Date Recorded Female 06/29/2019 10:58 EST documented as of this encounter Plan of Treatment Upcoming Encounters Date Type Specialty Care Team Description 02/28/2022 Office Visit Rheumatology Harsh Malloy, GUEST RELATIONS AGENT 111 [facility], [facility], [address] [place], [place] [address] (Wo rk) documented as of this encounter Procedures Procedure Name Priority Date/Time Associated Comments Diagnosis CCP ANTIBODIES Routine 10/24/2010 14:20 Psoriatic arthritis Re sults for this EDT ([facility]) procedure are in Encounter for the results long-term (current) section. use of other medications SED RATE Routine 10/24/2010 14:20 Psoriatic arthritis Resu lts for this EDT ([facility]) procedure are in Encounter for the results long-term (current) section. use of other medications COMPLETE BLOOD COUNT Routine 10/24/2010 14:20 Psoriatic arthri tis Results for this AND DIFFERENTIAL EDT ([facility]) procedure are in Encounter for the results long-term (current) section. use of other medications COMPREHENSIVE Routine 10/24/2010 14:20 Psoriatic arthritis Res ults for this METABOLIC PANEL (CMP) EDT ([facility]) procedure are in Encounter for the results long-term (current) section. use of other medications documented in this encounter Results CCP ANTIBODIES (10/24/2010 14:20 EDT) Pathologist Sig nature CCP Antibodies 0.42 <5.01 U/ml [facility] Specimen Performing Organization Address City/[facility] Phon e Number [facility] [address] [place] [address] SERVICES [facility] [address] [place] [address] SED. RATE:KENAN (10/24/2010 14:20 EDT) Pathologist Sig [facility] Sed. Rate Anibalergren 14 0 - 20 mm/hr [facility] Specimen Blood specimen (specimen) Performing Organization Address [facility] Phon e Number [facility] [address] [place] [address] SERVICES [facility] [address] [place] [address] HEMAGRAM AND DIFFERENTIAL (10/24/2010 14:20 EDT) Pathologist Sig nature WBC 9.02 4.0 - 12.4 K/cmm [facility] RBC 4.87 3.86 - 5.04 M/cmm [facility] Hemoglobin 14.7 11.6 - 15.2 gm/dl [facility] HCT 43.2 34.9 - 44.4 % [facility] MCV 89 81 - 98 fl [facility] MCH 30.2 26.7 - 33.3 pg [facility] MCHC 34.1 32.1 - 35.9 gm/dl [facility] PLT 317 141 - 320 K/cmm [facility] RDW-CV 13.6 11.7 - 14.6 % [facility] Neutrophils 69.1 45.5 - 79.7 % [facility] Lymphocytes 19.9 15.0 - 46.8 % [facility] Monocytes 8.0 1.8 - 12.0 % [facility] Eosinophils 2.0 0.6 - 6.9 % [facility] Basophils 1.0 0.2 - 1.4 % [facility] ABS Neutrophils 6.23 2.20 - 8.85 K/cmm [facility] ABS Lymphs 1.79 1.09 - 3.30 K/cmm [facility] ABS Monocytes 0.72 0.1 - 0.8 K/cmm [facility] ABS Eosinophils 0.18 0.03 - 0.61 K/cmm [facility] ABS Basophils 0.09 0.01 - 0.11 K/cmm [facility] Type of Diff: Automated [facility] Specimen Blood specimen (specimen) Performing Organization Address City/State/ZIP Code Phon e Number [facility] [address] [place] [address] SERVICES [facility] [address] [place] [address] COMPREHENSIVE METABOLIC PANEL (CMP) (10/24/2010 14:20 EDT) Pathologist [facility] nature Potassium 4.0 3.5 - 5.0 mEq/L [facility] Sodium 143 136 - 145 mEq/L [facility] Chloride 104 96 - 110 mEq/L [facility] CO2 28 24 - 32 mEq/L [facility] Total Alkaline 96 38 - 126 U/L [facility] Phosphatase Bilirubin, Total 0.7 0.2 - 1.3 mg/dl [facility] AST 18 15 - 46 U/L [facility] ALT 14 9 - 52 U/L [facility] Albumin 4.5 3.4 - 4.9 g/dl [facility] Total Protein 7.7 6.5 - 8.3 g/dl [facility] Creatinine 0.80 0.7 - 1.5 mg/dl [facility] GFR, Calculated >60 ml/min/1.73m2 [facility] BUN 16 10 - 26 mg/dl [facility] Calcium 9.2 8.5 - 10.5 mg/dl [facility] Calculated Calcium 9.1 8.5 - 10.5 mg/dl [facility] Glucose, Serum 99 70 - 100 mg/dl [facility] Fasting? No [facility] Specimen Blood specimen (specimen) Performing Organization Address City/State/ZIP Code Phon e Number [facility] [address] [place] [address] SERVICES [facility] [address] [place] [address] documented in this encounter Visit Diagnoses Diagnosis Psoriatic arthritis (HCC) Psoriatic arthropathy Encounter for long-term (current) use of other medications documented in this encounter Care Teams Big Data Hadoop Developer Relationship Specialty Start Date End Date Meredith Rapp MD PCP - General 08/09/10 08/04/18 [address] [place] [address] documented as of this encounter
--- OUTSIDE RECORDS SUMMARY | 2022-02-08 01:53 | XMS_ITS | Encounter Summary ---
:1970 Author Organization [facility] Address [address] [place] [address] Care Team Providers Name Role Phone Meredith Rapp MD Primary Care Provider Reason for Visit Reason Comments New Patient Visit Psoriasis Encounter Details Date Type Department Care Team Description 10/07/2011 Office Visit [facility] Derek Fernando Psoriatic arthritis ([facility]); Dermatology - Edwin Yoon MD Psoriasis [address] 111 [facility] [address] [place], [place] [id number] [place] [address], [place] [address] Social History Tobacco Use Types Packs/Day Years Used Date Never Smoker Smokeless Tobacco: Never Used Alcohol Use Standard Drinks/Week Comments No 0 (1 standard drink = 0.6 oz pure alcoho l) Sex Assigned at Date Recorded Female 06/29/2019 10:58 EST documented as of this encounter Last Filed Vital Signs Vital Sign Reading Time Taken Comments Blood Pressure 130/90 10/07/2011 1456 EDT Pulse 60 10/07/2011 1456 EDT Temperature 36.7 ??C (98.1 ??F) 10/07/2011 1456 EDT Respiratory Rate - - Oxygen Saturation - - Inhaled Oxygen Concentration - - Weight - - Height - - Body Mass Index - - documented in this encounter Patient Instructions Patient InstructionsClarissa Glass MD - 10/07/2011 15:38 EDT Use the shampoo daily to every few days. Use the clobetasol solution nightly. documented in this encounter Ordered Prescriptions Prescription Sig Dispensed Refills Start Date End Date Salicylic Acid 6-6 % Topically once daily 1 Bottle 11 10/0608/06/2017 KtSG to affected areas clobetasol (TEMOVATE) Apply topically twice 50 mL 1 02/201208/06/2017 0.05 % external solution a day to scalp. Do not apply to face, armpit or groin. documented in this encounter Progress Notes Clarissa Glass MD - 10/07/2011 6575 EDT Dermatology Outpatient Visit Note Problem List: 1. Psoriasis and psoriatic arthritis SUBJECTIVE Chief Complaint Patient presents with ??? New Patient Visit Psoriasis Ms. Boothe is a 41 y.o. female who presents for new evaluation and treatment for the above stated complaint. Last Dermatology office visit: n/a History of Present Illness: This is a 41 yo woman who comes in to establish care. She comes in with concerns about her psoriasis. She notes that she has actually had it for several years now, along with psoriatic arthritis, and for this she is on 9 tablets of Methotrexate weekly, along with folic acid. She notes that this has worked considerably well for her joints, and has actually kept her skin in good control as well. She isfollowed by Rheumatology for this, and she does not drink alcohol. However, in the last year she hasbecome increasingly troubled by a stubborn plaque on the posterior scalp. She has tried mostly yarb-yot-iykaaih medications for this which have not helped. She recalls having used the steroid shampoo in the past which she did not enjoy. She thinks that this degree of psoriasis is tolerable, but she wonders whether anything can be done to albert her symptoms of itch and scale. Her sister is on Enbrel and she has questions about that. For full Medical, Surgical, Family, and Social histories, please see the History section of this encounter in the electronic chart which I have personally reviewed. For Review of Systems, Medications and Allergies, please see those sections of this encounter in theelectronic chart which I have also reviewed. OBJECTIVE VS: BP 130/90 Pulse 60 Temp 36.7 ??C (98.1 ??F) LMP 09/24/2011 Physical Exam: On physical examination, Ms. Boothe is a female who presents well-groomed, well-nourished and appears stated age and is in no apparent distress. She is alert and interactive. She has a fair skin phenotype. Cutaneous examination of the head (including scalp and face), neck, back, chest, abdomen, upper extremities, lower extremities, hands and feet was performed.The examination was normal with the addition of the following comments: On the occiput there is a broad 10 cm thin red plaque with white micaceous scale. She has a similar, albeit much smaller plaque on each elbow, each about 2 cm. ASSESSMENT 1. Plaque type psoriasis, limited 2% BSA PLAN 1. The above impression was discussed at length with the patient. 2. We explained the different options available at this point to treat psoriasis. Therapy can be relatively straightforward and limited to topicals, with a steroid (as she has been doing) and the use of calcipotriene, or we can pursue more aggressive options. The options discussed were light therapy (he is not ideal for this given distance), vs treatment with agents such as acitretin. We explained that this is not for use in women or women who may become , and is not ideal for psoriatic arthritis. Methotrexate is immunomodulatory with risks being severe anemia and liver disease, but this is often in select patient populations or with limited circumstances. is contraindicated on this drug. Finally, we discussed the biologic drugs and their immunomodulatory properties with risks being severe infection, illness or even lymphoma. Given the limited nature of her skin disease, would suggest continuing with the Methotrexate and treating the scalp topically. 3. For the scalp, will use clobetasol scalp solution, 50 mL bottle with one refill. Will try to reduce scale also with Keralyt salicylic acid shampoo. Dispense one bottle with 11 refills. She has triedtopical salicylic acid products in the past. The patient is comfortable with this plan and will ezekiel nue Methotrexate at this point. However, to calm down the inflammation immediately and get the process started, will start with intralesional kenalog to plaque on scalp. 4. Return in about 1 year (around 10/06/2012) for psoriasis . Intralesional Kenalog After verbal consent, 0.5 cc 2.5 mg/ml of intralesional triamcinolone injection was injected into a total of 1 lesion(s). Risks and benefits were discussed including atrophy, and dyspigmentation are a small possibility. Pt acknowledged these risks. Patient tolerated this well and there were no immediate complications. CLARISSA GLASS MD 10/07/2011 15:35 Attestation Statement: I saw and examined the patient with the resident/fellow. I agree with the findings and plan of care documented in the resident's/fellow's note. I was present for the entire procedure. DEREK FERNANDO MD Dermatology [facility] Franci stevens - 10/07/2011 1459 EDT A complete 12 point review of systems was obtained and reviewed. All systems are negative except for: Rash, itching Franci Hull MA 14:57 10/07/2011 documented in this encounter Plan of Treatment Upcoming Encounters Date Type Specialty Care Team Description 02/28/2022 Office Visit Rheumatology Harsh Malloy, SHIPPING WEIGHER 111 [facility], [address] [place], [place] [address] (Wo rk) documented as of this encounter Visit Diagnoses Diagnosis Psoriatic arthritis (HCC) Psoriatic arthropathy Psoriasis Other psoriasis documented in this encounter Care Teams Flux Plant Operator Relationship Specialty Start Date End Date Meredith Rapp MD PCP - General 08/09/10 08/04/18 [address] [place] [address] documented as of this encounter
--- OUTSIDE RECORDS SUMMARY | 2022-02-08 01:53 | XMS_ITS | Encounter Summary ---
:1970 Author Organization [facility] Address [address] [place] [address] Care Team Providers Name Role Phone Meredith Rapp MD Primary Care Provider Reason for Referral (Routine/Next Available) - Closed Specialty Diagnoses / Procedures Referred By Contact Refer red To Contact Diagnoses Elevated liver enzymes Etelvina Hernandez MD Procedures AST [address] [phone] Referral ID Status Reason Start Date Expiration Date Visits Requ ested Visits Authorized [id number] Closed 06/10/2012 1 1 (Routine/Next Available) - Closed Specialty Diagnoses / Procedures Referred By Contact Refer red To Contact Diagnoses Elevated liver enzymes Etelvina Hernandez MD Procedures ALT [address] [phone] Referral ID Status Reason Start Date Expiration Date Visits Requ ested Visits Authorized [id number] Closed 06/10/2012 1 1 Reason for Visit Reason Onset Date Comments Results 06/10/2012 Encounter Details Date Type Department Care Team Description 06/10/2012 Telephone [facility] Darrian Hernandez MD Results Rheumatology & Immunology - [address] [facility], [address] [place] [address] [place] [phone] (Wo rk) Social History Tobacco Use Types Packs/Day Years Used Date Never Smoker Smokeless Tobacco: Never Used Alcohol Use Standard Drinks/Week Comments No 0 (1 standard drink = 0.6 oz pure alcoho l) Sex Assigned at Date Recorded Female 06/29/2019 10:58 EST documented as of this encounter Miscellaneous Notes Telephone Encounter - Etelvina Hernandez MD - 06/10/2012 1712 EST Labs done today show AST 110 and ALT 146. Recommended holding methotrexate and rechecking labs in a week. Then depending on result decide whether to restart methotrexate. Message left on phone machine. documented in this encounter Plan of Treatment Upcoming Encounters Date Type Specialty Care Team Description 02/28/2022 Office Visit Rheumatology Harsh Malloy, ELBERT 111 [facility], [facility], [facility] 5 [place], [place] [address] (Wo rk) documented as of this encounter Visit Diagnoses Diagnosis Elevated liver enzymes - Primary Other nonspecific abnormal serum enzyme levels documented in this encounter Orders Lab Orders Without Results Count Last Ordered Date st Ordered Date ALT 1 06/10/2012 AST 1 06/10/2012 documented in this encounter Care Teams Ribbon Hanking Machine Operator Relationship Specialty Start Date End Date Meredith Rapp MD PCP - General 08/09/10 08/04/18 [address] [place] [address] documented as of this encounter
--- OUTSIDE RECORDS SUMMARY | 2022-02-08 01:53 | XMS_ITS | Encounter Summary ---
:1970 Author Organization [facility] Address [address] [place] [address] Care Team Providers Name Role Phone Unknown, Provider Primary Care Provider Encounter Details Date Type Department Care Team Description 05/24/1999 Results Only [facility] - Kendal Cerna MD conversion [address] [place], [place] [phone] Social History Tobacco Use Types Packs/Day Years Used Date Never Assessed Sex Assigned at Date Recorded Female 06/29/2019 10:58 EST documented as of this encounter Plan of Treatment Upcoming Encounters Date Type Specialty Care Team Description 02/28/2022 Office Visit Rheumatology Harsh Malloy, INSTRUCTIONAL CONSULTANT 111 [facility], [facility], [address] [place], [place] [address] (Wo rk) documented as of this encounter Procedures Procedure Name Priority Date/Time Associated Diagnosis Comme nts CYTOPATHOLOGY Routine 05/24/1999 7:29 EST Results for this procedure are i n the results section . documented in this encounter Results CYTOPATHOLOGY (05/24/1999 7:29 EST) Pathology Report: CYTOPATHOLOGY REPORT [facility] Reports generated via electronic interface contain thomas ginal data; however they are lacking the format of the original re port. Caution should be taken when reading/interpreting unfo rmatted reports. Name: ? REILLY HUI ? Accession #: ? [id number] : ? 1970 (Age: 28) ??F ?Collect Date: ? 04/29 Location: ?Receive Date: ? 05/24/1999 Provider: ?KENDAL WU MD Copy to: ?KENDAL WU MD ? Specimen/Source: ?Pap Smear (One Slide) Last Menstrual Period: ? GYNECOLOGIC ??CYTOPATHOLOG Y ??REPORT Name: REILLY HUI ? [facility] : 1970 ?? 28Y F ?Client ID: [id number] SS#: [id number] ? Ac cession #: [email or web address] Clinician: KENDAL WU MD ?? Location: [facility] ??Copy to: ?? Specimen: ?Pap Smear (One Slide) ? Source: Cervix/Endocervix ?Collected: 05/22/99 ? Received: 05/24/1999 ?LMP: 05/07/99 ? Hormone Therapy: Yes ? : No ? Radiation Therapy: No ?? Post : No ?Chemotherapy: No ?IUD: No ? Prev Abnormal Pap: No ?? Clinical Hx: Norplant. Spotting. ?(Blank rosenberg indicate information not provided on requisition) SPECIMEN ADEQUACY: ? Satisfactory For Evaluation ?? GENERAL CATEGORIZATION: ? WITHIN NORMAL LIMITS ? Reviewed And Electronically Signed By: ? HAYDEE Khanna(ASCP) ? Report Date : ?? 05/24/1999 Strikingly Archived Tests - Final Diagnosis Text Field: Clinical History : ;Norplant. Spotting. ? Document reviewed and electronically signed by: ? Conversion ? Report Date: ??05/24/1999 00:00 End of Report Specimen Performing Organization Address City/State/ZIP Code Phon e Number [facility] [address] [place] [address] SERVICES [facility] [address] [place] [address] documented in this encounter Visit Diagnoses Not on filedocumented in this encounter Care Teams Cad Designer Drafter Relationship Specialty Start Date End Date Unknown, Provider, PCP - General 08/08/09 08/08/10 documented as of this encounter
--- OUTSIDE RECORDS SUMMARY | 2022-02-08 01:53 | XMS_ITS | Encounter Summary ---
:1970 Author Organization [facility] Address [address] [place] [address] Care Team Providers Name Role Phone Unknown, Provider Primary Care Provider Encounter Details Date Type Department Care Team Description 06/15/2004 Results Only [facility] - Emily Salcido, ELBERT [address] [place] [address] [place] [address] [phone] Social History Tobacco Use Types Packs/Day Years Used Date Never Assessed Sex Assigned at Date Recorded Female 06/29/2019 10:58 EST documented as of this encounter Plan of Treatment Upcoming Encounters Date Type Specialty Care Team Description 02/28/2022 Office Visit Rheumatology Harsh Malloy NP 111 [facility], [facility], [address] [place], [place] [address] (Wo rk) documented as of this encounter Procedures Procedure Name Priority Date/Time Associated Diagnosis Comme nts CYTOPATHOLOGY Routine 06/15/2004 0:00 EST Results for this procedure are i n the results section . documented in this encounter Results CYTOPATHOLOGY (06/15/2004 0:00 EST) Pathology Report: CYTOPATHOLOGY REPORT [facility] Reports generated via electronic interface contain thomas ginal data; however they are lacking the format of the original re port. Caution should be taken when reading/interpreting unfo rmatted reports. Name: ? REILLY HUI ? Accession #: ? [id number] : ? 1970 (Age: 33) ??F ?Collect Date: ? 05/29 Location: ? [facility] ? Receive Date : ? 06/19/2004 Provider: ?EMILY CURRY GRADUATE NURSE Copy to: ? Specimen/Source: ?ThinPrep Pap Test, Cervix/ Endocervix Last Menstrual Period: ? 05/30/04 Hormonal/Contraceptive Status: ? Tubal ligation Other: ? HPVA - HPV testing requested if ASC-US on the current ThinPrep Pap test. ? SPECIMEN ADEQUACY ? Satisfactory for Evaluation - transformation zone component present GENERAL CATEGORIZATION ? Negative for Intraepithelial Lesion or Malignan cy ? Document reviewed and electronically signed by: ? HAYDEE Grande(ASCP) ? Report Date: ??06/21/2004 11:37 End of Report Specimen Performing Organization Address City/State/ZIP Code Phon e Number [facility] [address] [place] [address] SERVICES [facility] [address] [place] [address] documented in this encounter Visit Diagnoses Not on filedocumented in this encounter Care Teams Otolaryngology Nurse Relationship Specialty Start Date End Date Unknown, Provider, PCP - General 08/08/09 08/08/10 documented as of this encounter
--- OUTSIDE RECORDS SUMMARY | 2022-02-08 01:53 | XMS_ITS | Encounter Summary ---
:1970 Author Organization [facility] Address [address] [place] [address] Care Team Providers Name Role Phone Unavailable Primary Care Provider Unavailable Encounter Details Date Type Department Care Team Description 08/01/2009 Results Only [facility] Meredith Patel MD [facility] [address] [place] [phone] (Wo rk) Social History Tobacco Use Types Packs/Day Years Used Date Never Assessed Sex Assigned at Date Recorded Female 06/29/2019 10:58 EST documented as of this encounter Plan of Treatment Upcoming Encounters Date Type Specialty Care Team Description 02/28/2022 Office Visit Rheumatology Harsh Malloy, RECREATIONAL SPECIALIST 111 [facility], [facility], [address] [place] [address] (Wo rk) documented as of this encounter Procedures Procedure Name Priority Date/Time Associated Diagnosis Comme nts CYTOPATHOLOGY Routine 08/01/2009 0:00 EDT Results for this procedure are i n the results section . documented in this encounter Results CYTOPATHOLOGY (08/01/2009 0:00 EDT) Pathology Report: CYTOPATHOLOGY REPORT ? [facility] Reports generated via electr onic interface contain original data; ? however they are lacking the format of the original report. ? Caution should be taken when reading/interpreting unformatted reports. ? Name: ? REILLY HUI ? Accession #: ? [id number] ? : ? 1970 (Age: 38) ??F ?Collect Date: ? 08/01/2009 ? Location: ? [facility] ? Receive Date: ? 08/02/2009 ? Provider: ?MEREDITH FIN E MD ? Copy to: ? Specimen/Source: ? Pap Test, Endocervix, ThinPrep Imaging System with ? manual evaluation ? Last Menstrual Period: ? 03.15.10 ? Other: ? HPVA - HPV testing requested if ASC-US on the current ThinPrep Pap test. ? SPECIMEN ADEQUACY ? Satisfactory for Eval uation ? - transformation zone compon ent present ? GENERAL CATEGORIZATION ? Negative for Intraepi thelial Lesion or Malignancy ? Document reviewed and electr onically signed by: ? Ngoc Colemanlogg, CT(ASCP) ? Report Date: ??04/13/ 2010 10:17 ? End of Report ? Specimen Performing Organization Address City/State/ZIP Code Phon e Number [facility] [address] [place] [address] SERVICES [facility] [address] [place] [address] documented in this encounter Visit Diagnoses Not on filedocumented in this encounter
--- OUTSIDE RECORDS SUMMARY | 2022-02-08 01:53 | XMS_ITS | Encounter Summary ---
:1970 Author Organization [facility] Address [address] [place] [address] Care Team Providers Name Role Phone Meredith Rapp MD Primary Care Provider Reason for Visit Reason Onset Date Comments Medications Refill 10/09/2011 Encounter Details Date Type Department Care Team Description 10/09/2011 Refill [facility] Talisha Loja RN Me dications Refill Rheumatology & Immunology - [address] [address] Social History Tobacco Use Types Packs/Day [...] 2.5 mg tablet Take 9 Tabs by 36 Tab 5 10/0802/19/2012 mouth once a week. documented in this encounter Plan of Treatment Upcoming Encounters Date Type Specialty Care Team Description 02/28/2022 Office Visit Rheumatology Harsh Malloy NP [address] [facility], [address], [address] [place], [place] [address] (Wo rk) documented as of this encounter Visit Diagnoses Not on filedocumented in this encounter Discontinued Medications Medication Sig Discontinue Reason Start Date End Date methotrexate 2.5 mg tablet Take 9 Tabs by Reorder 10/07/2011 10/09/2011 mouth once a week. documented as of this encounter Care Teams Collection Systems Consultant Relationship Specialty Start Date End Date Meredith Rapp MD PCP - General 08/09/10 08/04/18 [address] [place] [address] documented as of this encounter
--- OUTSIDE RECORDS SUMMARY | 2022-02-08 01:53 | XMS_ITS | Encounter Summary ---
:1970 Author Organization [facility] Address [address] [place] [address] Care Team Providers Name Role Phone Meredith Rapp MD Primary Care Provider Reason for Visit Reason Onset Date Comments Results 06/22/2012 Encounter Details Date Type Department Care Team Description 06/22/2012 Telephone [facility] Darrian Hernandez MD Results Rheumatology & Immunology - [address] [place] [address], [address], [address] [place], [place] [id number] [place] [phone] (Wo rk) Social History Tobacco Use Types Packs/Day Years Used Date Never Smoker Smokeless Tobacco: Never Used Alcohol Use Standard Drinks/Week Comments No 0 (1 standard drink = 0.6 oz pure alcoho l) Sex Assigned at Date Recorded Female 06/29/2019 10:58 EST documented as of this encounter Miscellaneous Notes Telephone Encounter - Etelvina Hernandez MD - 06/22/2012 1450 EST Repeat LFTs now normal. Would restart methotrexate at 15 mg weekly, recheck labs as previous every 2months. Message left on home machine. documented in this encounter Plan of Treatment Upcoming Encounters Date Type Specialty Care Team Description 02/28/2022 [facility] WELDER OXYHYDROGEN [address] [facility], [facility], [address] [place], [place] [address] (Wo rk) documented as of this encounter Visit Diagnoses Not on filedocumented in this encounter Care Teams Keyboard Action Assembler Relationship Specialty Start Date End Date Meredith Rapp MD PCP - General 08/09/10 08/04/18 [address] [place] [phone] documented as of this encounter
--- OUTSIDE RECORDS SUMMARY | 2022-02-08 01:53 | XMS_ITS | Encounter Summary ---
:[address] [facility] Address [address] [place] [address] Care Team Providers Name Role Phone Meredith Rapp MD Primary Care Provider Reason for Visit Reason Comments Joint Pain feet, elbows, hands, knees f ills with fluid Encounter Details Date Type Department Care Team Description 10/24/2010 Office Visit [facility] Etelvina Hernandez, Dawna iatic arthritis ([facility]); Rheumatology & MD Encounter for long-term (current) use of other medications Immunology - Main [address] [place], [place] [address] [place], [place] [address], [place] [address] (Wo rk) Social History Tobacco Use Types Packs/Day Years Used Date Never Smoker Alcohol Use Standard Drinks/Week Comments No 0 (1 standard drink = 0.6 oz pure alcoho l) Sex Assigned at Date Recorded Female 06/29/2019 10:58 EST documented as of this encounter Last Filed Vital Signs Vital Sign Reading Time Taken Comments Blood Pressure 132/76 10/24/2010 1248 EDT Pulse 68 10/24/2010 1248 EDT Temperature - - Respiratory Rate 14 10/24/2010 1248 EDT Oxygen Saturation - - Inhaled Oxygen Concentration - - Weight 77.6 kg (171 lb) 10/24/2010 1248 EDT Height 165.7 cm (5' 5.25) 10/24/2010 1248 EDT Body Mass Index 28.24 10/24/2010 1248 EDT documented in this encounter Patient Instructions Patient InstructionsEtelvina Hernandez MD - 10/24/2010 13:52 EDT Start folic acid one tab a day Start methotrexate 3 pills the first week, then 5 pills a week (all on same day) Get labs and chest x-ray on 2nd and 3rd floor respectively today Get standing order labs in 3 weeks after starting methotrexate, then every 2 months documented in this encounter Ordered Prescriptions Prescription Sig Dispensed Refills Start Date End Date folic acid (FOLVITE) 1 mg Take 1 Tab by mouth 90 Tab 3 0 10/24/2010 12/28/2010 tablet daily. methotrexate 2.5 mg tablet Take 5 Tabs by 60 Tab 3 10/2412/28/2010 mouth once a week. documented in this encounter Progress Notes Etelvina Hernandez MD - 10/24/2010 1433 EDT Images from the original note were not included. This office note has been dictated. documented in this encounter Consult Notes Etelvina Hernandez MD - 10/26/2010 0757 EDT DIVISION OF RHEUMATOLOGY CONSULTATION - 10/24/2010 CHIEF COMPLAINT: This is a 40-year-old lady who is seen in consultation at the request of Dr Rapp with chief complaint of joint pain and swelling. 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 She had aspirations and injections of her knees with improvement and eventually went on to bilateral knee arthroscopies with some improvement. Over the years, the knees have been swollen but not painful. She was nottreated with any other special medications for arthritis at that time. In the last 2 years she has developed pain and swelling in her hands, predominantly the right more than left hand; bilateral toe and foot swelling with sausage toes; mild bilateral elbow swelling. Her whole feet hurt. She has no pain in her shoulders, hips or back. In the morning, pain is much worseand it is hard for her to walk. She has morning stiffness lasting 3 hours. The patient does have a history of psoriasis for many years since her early teens, treated only withtopical medications. She has rash on her elbows, scalp, ears abdomen and inguinal area. She has been taking Tylenol as needed and Naprosyn as needed with some improvement, but it tends to wear off quickly. MEDICATIONS: Tylenol as needed. Atenolol 50 mg daily. Benadryl 25 mg as needed. Naproxen 500 mg twice a day. Triamcinolone 0.1% cream twice a day as needed. ALLERGIES: ASPIRIN causes hives. 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 She lives with her and son, aged 18. Son is going to be leaving soon to join the [employer]. She does not smoke and rarely drinks alcohol. PAST MEDICAL HISTORY: Psoriasis, migraine headaches, 4, para 3, ab 1, abnormal Pap remote past, hyperthyroidism but which now does not require any treatment (she is now off treatment), hypertension, bilateral knee arthroscopies and tubal ligation. FAMILY HISTORY: Sister with psoriasis and arthritis that is severe, requiring injections of TNF alpha inhibitor. Mother had psoriasis but when the patient was 4 years old. No family history of lupus or RA. REVIEW OF SYSTEMS: A 12-point review of systems is done and negative with the following exceptions: Hypertension, psoriasis, and the musculoskeletal symptoms as mentioned above. OBJECTIVE: No acute distress. Blood pressure 132/76, pulse 68, respiration 14. Weight 171 pounds, height 65-1/4 inches. Pain rating scale 3/10, no acute distress. Head and neck: Pupils equal and reactive, extraocular movements intact, sclerae clear, conjunctivae pink, mucous membranes moist, no oral ul cers, no cervical nodes. Lungs are clear. Heart sounds regular, no rubs. Abdomen: Soft, nontender, no organomegaly or masses. Skin: She has psoriatic patches on the elbows, scalp and umbilical areas. Her spine and SI joints are nontender. She has full range of motion in all directions of C-spine. Shoulders are normal with good range of motion, no swelling, tenderness, or warmth. There is tenderness left elbow and mild swelling and tenderness right elbow. There is a marked swelling at the right fourth PIP with tenderness and to a lesser degree swelling with tenderness right fourth and fifth MCPs andright fifth PIP. Range of motion at the fingers of the right hand is reduced. Otherwise, the fingersand wrists were normal. The hips ranged well without pain. The right knee had painful range of motion with mild swelling and warmth. Left knee unremarkable. Both ankles were swollen. There was no Achilles tenderness. She had swelling and tenderness over all of the MTPs except for the great toes bilaterally and sausage toes left second and fourth and right second, as well as some tenderness without obvious swelling right third and fourth toe IP joints. DIAGNOSTIC DATA: Per the note from her primary care doctor, the patient had negative PARKER and rheumatoid factor. An x-ray of her hands done in July was read out as normal. Also in July, she had a TSH of 7.68 and a free T4 of 1.12. Her white count was 9.45, hemoglobin 14.6 and platelets 299,000. IMPRESSION: I think this patient has psoriatic arthritis. I do not think she has juvenile idiopathicarthritis, but she may well have had juvenile psoriatic arthritis. PLAN: Check a CCP to complete her workup, also a sed rate and a baseline CBC and comprehensive metabolic panel as well as a baseline chest x-ray today. Will start methotrexate initially 7.5 mg the first week, then 12.5 mg a week after that. Will also start folic acid 1 mg a day. Possible side effects of methotrexate were reviewed including allergic rash, GI upset, stomatitis, bone marrow suppression,liver toxicity and pulmonary toxicity. The need to avoid excessive alcohol and to avoid sulfa antibiotics was reviewed. It is also teratogenic, but the patient has had a tubal ligation. The patient understands and is willing to try the medicine and knows it takes 8 weeks or more to take effect. A standing order for CBC, LFTs and creatinine to be done in 3 weeks, then on an [id number] basis was given to the patient to do at home. I will let her know if there are any problems on her tests. Pamphlets on psoriatic arthritis, biological drugs, sulfasalazine and methotrexate were given to thepatient to read. I went over the diagnosis of psoriatic arthritis and explained what it was to the patient and answered her questions. In addition, I went over various options for therapy including sulf asalazine, methotrexate, and biological drugs. She elected to try the methotrexate as it would help her rash as well as her joints. I also reviewed the possibility of surveillance liver biopsies with the patient. I told her it was somewhat controversial, and that after she has been on methotrexate fora time we can discuss it again, although we may ultimately choose not to order those. She will follow up with me in 2 months. Medication reconciliation performed. No barriers to learning. The patient verbalized understanding and agrees with the plan. Electronically Signed by Etelvina Hernandez MD 10/26/2010 07:57 Etelvina Hernandez MD - Etelvina Hernandez MD - [facility] Job ID: SM Doc ID: [id number] Ext Doc ID: [id number] cc: Meredith Rapp MD documented in this encounter Plan of Treatment Upcoming Encounters Date Type Specialty Care Team Description 02/28/2022 Office Visit Rheumatology Harsh Malloy, ELBERT [address], [facility], [address] [place], [place] [address] (Wo rk) documented as of this encounter Procedures Procedure Name Priority Date/Time Associated Diagnosis Comme nts CHEST PA AND Routine 10/24/2010 14:10 Encounter for Results fo r this LATERAL EDT long-term (current) procedur e are in use of other the results medications section. Psoriatic arthritis ([facility]) documented in this encounter Results CCP ANTIBODIES (10/24/2010 14:20 EDT) Pathologist Sig nature CCP Antibodies 0.42 <5.01 U/ml [facility] Specimen Performing Organization Address City/State/ZIP Code Phon e Number [facility] [address] [place] [address] SERVICES [facility] [address] [place] [address] SED. RATE:WESTERGREN (10/24/2010 14:20 EDT) Pathologist Sig nature Sed. Rate Westergren 14 0 - 20 mm/hr [facility] Specimen Blood specimen (specimen) Performing Organization Address City/[facility] [address]/RUST Code Phon e Number [facility] [address] [place] [address] SERVICES [facility] [address] [place] [address] HEMAGRAM AND DIFFERENTIAL (10/24/2010 14:20 EDT) Pathologist [...] City/State/ZIP Code Phon e Number [facility] [address] [place] [phone] SERVICES [facility] [address] [place] [address] COMPREHENSIVE METABOLIC PANEL (CMP) (10/24/2010 14:20 EDT) Pathologist Sig nature Potassium 4.0 3.5 - 5.0 mEq/L [...] Glucose, Serum 99 70 - 100 mg/dl [facility] Fasting? No [facility] Specimen Blood specimen (specimen) Performing Organization Address City/State/ZIP Code Phon e Number [facility] [address] [place] [address] SERVICES [facility] [address] [place] [address] CHEST PA AND LATERAL (10/24/2010 14:10 EDT) Anatomical Region Laterality Modality Other Specimen Narrative [facility] - 10/24/2010 16:50 EDT CHEST PA AND LAT ?? Oct 24, 2010 02:10:00 PM History: ??V58.69-ENCOUNTER FOR LONG-TER M (CURRENT) USE OF OTHER MEDICATIONS-I9 696.0-PSORIATIC ARTHRITIS -I9 baseline starting methotrexate Comparisons: none Findings: Two views of the chest were performed. ? ?Dual-energy technique with reconstructions in normal, soft tissue a nd bone windows was used. The lungs are clear and there is no evid ence of pleural disease. The cardiac silhouette and pulmonary vascula rity are normal. The skeleton is unremarkable for age. Impression: Normal chest I have personally reviewed the images an d the above interpretation and agree with the findings. Procedure Note Yair Fitch MD - 10/24/2010 CHEST PA AND LAT Oct 24, 2010 02:10:00 P M History: V58.69-ENCOUNTER FOR LONG-TERM (CURRENT) USE OF OTHER MEDICATIONS-I9 696.0-PSORIATIC ARTHRITIS -I9 baseline starting methotrexate Comparisons: none Findings: Two views of the chest were performed. D ual-energy technique with reconstructions in normal, soft tissue a nd bone windows was used. The lungs are clear and there is no evid ence of pleural disease. The cardiac silhouette and pulmonary vascula rity are normal. The skeleton is unremarkable for age. Impression: Normal chest I have personally reviewed the images an d the above interpretation and agree with the findings. Performing Organization Address City/State/ZIP Code Phon e Number [facility]/[place] [facility] documented in this encounter Visit Diagnoses Diagnosis Psoriatic arthritis (HCC) Psoriatic arthropathy Encounter for long-term (current) use of other medications documented in this encounter Discontinued Medications Medication Sig Discontinue Reason Start Date End Date Naproxen Sodium (NAPRELAN Take 500 mg by Error 10/24/2010 10/24/2010 CR) 500 mg TM24 mouth 2 times daily. documented as of this encounter Historical Medications This list may reflect changes made after this encounter. Medication Sig Dispensed Refills Start Date End Date naproxen (NAPROSYN) 500 mg Take 500 mg by 0 12/2802/19/2012 tabletIndications: mouth as needed. Psoriatic arthritis (HCC), Encounter for long-term (current) use of other medications triamcinolone (KENALOG) Apply topically 2 0 08/06/2017 0.1 % creamIndications: times daily as Psoriatic arthritis (HCC), needed. Encounter for long-term (current) use of other medications diphenhydrAMINE (BENADRYL) Take 25 mg by mouth 0 10/24/2010 02/19/2012 25 mg capsuleIndications: every 4 hours as Psoriatic arthritis (HCC), needed. Encounter for long-term (current) use of other medications acetaminophen (TYLENOL) Take 1,000 mg by 0 07/30/2011 500 mg tabletIndications: mouth every 6 Psoriatic arthritis (HCC), hours. Encounter for long-term (current) use of other medications Naproxen Sodium (NAPRELAN Take 500 mg by 0 201010/24/2010 CR) 500 mg TM24 mouth 2 times daily. atenolol (TENORMIN) 50 mg Take 50 mg by mouth 0 04/18/2014 tabletIndications: daily. Psoriatic arthritis (HCC), Encounter for long-term (current) use of other medications added in this encounter Care Teams Resident Care Associate Relationship Specialty Start Date End Date Meredith Rapp MD PCP - General 08/09/10 08/04/18 [address] [place] [address] documented as of this encounter
--- OUTSIDE RECORDS SUMMARY | 2022-02-08 01:53 | XMS_ITS | Encounter Summary ---
:1970 Author Organization Health system Address [address] [place] [address] Care Team Providers Name Role Phone Meredith Rapp MD Primary Care Provider Reason for Visit Reason Onset Date Comments Labs Only 06/17/2012 Encounter Details Date Type Department Care Team Description 06/17/2012 Telephone [facility] Darrian Hernandez MD Labs Only Rheumatology & Immunology - [address] [place] [address], [address] [address] (Wo rk) Social History Tobacco Use Types Packs/Day Years Used Date Never Smoker Smokeless Tobacco: Never Used Alcohol Use Standard Drinks/Week Comments No 0 (1 standard drink = 0.6 oz pure alcoho l) Sex Assigned at Date Recorded Female 06/29/2019 10:58 EST documented as of this encounter Miscellaneous Notes Telephone Encounter - China Penn RN - 06/17/2012 1305 EST New orders faxed to [facility] at [phone]. Message left for pt. Instructed her to dolabs one week after stopping her methotrexate as ordered by Dr. Hernandez. elephone Encounter - Jacki Watt - 06/17/2012 1303 EST Sent pt a copy of labs and faxed copy to [facility] elephone Encounter - Gabriela Tsai - 06/17/2012 1244 EST Pt calling in follow up to 06/10 call as her understanding was that dr. Hernandez was re-ordering these labs for re-drawn in 1 wk, but hasn't received this, [facility]s contact pt on her cell# documented in this encounter Plan of Treatment Upcoming Encounters Date Type Specialty Care Team Description 02/28/2022 Office Visit Rheumatology Harsh Malloy, RUG DRYING MACHINE OPERATOR [address] [facility], [facility], [address] [place], [place] [address] (Wo rk) documented as of this encounter Visit Diagnoses Not on filedocumented in this encounter Care Teams Speech Coach Relationship Specialty Start Date End Date Meredith Rapp MD PCP - General 08/09/10 08/04/18 [address] [place] [address] documented as of this encounter
--- OUTSIDE RECORDS SUMMARY | 2022-02-08 01:53 | XMS_ITS | Encounter Summary ---
:1970 Author Organization [facility] Address [address] [place] [address] Care Team Providers Name Role Phone Meredith Rapp MD Primary Care Provider Reason for Visit Reason Onset Date Comments Medication Management 10/07/2011 BEBETO FROM [facility] CALLED AND HAD A QUESTION ABOUT A THE PRESCRIPTION JENNIFER ICYLIC ACID PRESCRIBED. PLEASE C ALL. Encounter Details Date Type Department Care Team Description 10/07/2011 Telephone [facility] Cat Dodson, [facility] cation Management Dermatology - Edwin RODRIGUEZ (BEBETO FROM [address] CALLED AND HAD A [address] [facility], [place] [address] [place] [address] PRESCRIPTION SALICYLIC [phone] ACID (Work) PRESCRIBED. PLEASE CALL.) Social History Tobacco Use Types Packs/Day Years Used Date Never Smoker Smokeless Tobacco: Never Used Alcohol Use Standard Drinks/Week Comments No 0 (1 standard drink = 0.6 oz pure alcoho l) Sex Assigned at Date Recorded Female 06/29/2019 10:58 EST documented as of this encounter Miscellaneous Notes Telephone Encounter - Verónica Rincon - 10/08/2011 1047 EDT Salicylic Acid comes as 6% lotion or 6% cream. Please advise. documented in this encounter Plan of Treatment Upcoming Encounters Date Type Specialty Care Team Description 02/28/2022 Office Visit Rheumatology Harsh Malloy, PASSPORT SUPPORT MANAGER [address] [facility], [facility], [address] [place] [address] (Wo rk) documented as of this encounter Visit Diagnoses Not on filedocumented in this encounter Care Teams Ferry Operator Relationship Specialty Start Date End Date Meredith Rapp MD PCP - General 08/09/10 08/04/18 [address] [place] [address] documented as of this encounter
--- OUTSIDE RECORDS SUMMARY | 2022-02-08 01:53 | XMS_ITS | Encounter Summary ---
:1970 Author Organization [facility] Address [address] [place] [address] Care Team Providers Name Role Phone Meredith Rapp MD Primary Care Provider Reason for Visit Reason Comments Follow-up Psoriatic Arthritis, Doing w ell, very minor hand pain Encounter Details Date Type Department Care Team Description 03/29/2011 Office Visit [facility] Cecilia Bustos arthritis ([facility]); Rheumatology & D, PA Encounter for long-term (current) use of other medications Immunology - Main [address] [facility] [place], [facility] [address] [place] [phone] Social History Tobacco Use Types Packs/Day Years Used Date Never Smoker Smokeless Tobacco: Never Used Alcohol Use Standard Drinks/Week Comments No 0 (1 standard drink = 0.6 oz pure alcoho l) Sex Assigned at Date Recorded Female 06/29/2019 10:58 EST documented as of this encounter Last Filed Vital Signs Vital Sign Reading Time Taken Comments Blood Pressure 128/72 03/29/2011 0946 EST Pulse 76 03/29/2011 0946 EST Temperature - - Respiratory Rate - - Oxygen Saturation - - Inhaled Oxygen Concentration - - Weight 77.6 kg (171 lb) 03/29/2011 0946 EST Height 165.7 cm (5' 5.25) 03/29/2011 0946 EST Body Mass Index 28.24 03/29/2011 0946 EST documented in this encounter Patient Instructions Patient InstructionsMcGill, Cecilia, PA - 03/29/2011 10:21 EST 1. Increase methotrexate to #8 pills weekly (20 mg--can try split dosing ie #4 pills AM and #4 pills PM) 2. Continue folic acid 1 mg daily 3. Use tylenol or aleve or ibuprofen as needed for breakthrough pain 4. Continue labs as needed every 2-3 months 5. Call in one month with status 6. Follow up in [address] Phillips or sooner as needed with Tonia Bustos PA-C documented in this encounter Ordered Prescriptions Prescription Sig Dispensed Refills Start Date End Date methotrexate 2.5 mg tablet Take 8 Tabs by 96 Tab 3 03/2907/30/2011 mouth once a week. documented in this encounter Progress Notes Cecilia Bustos PA - 03/29/2011 0944 EST Division of Rheumatology and Clinical Immunology Chief Complaint Patient presents with ??? Follow-up Psoriatic Arthritis, Doing well, very minor hand pain HPI: This is a pleasant 40 y.o. year old female with psoriatic arthritis who was last seen in December. Her recent increase to methotrexate 17.5 mg weekly has been helpful. She denies any mouth sores,cough, shortness of breath or chest pain. She and her whole family are getting over a upper respiratory infection. Her lingering symptom is a non-productive cough. She notes that her biggest improvement on methotrexate has been in morning stiffness and day-to-day hand/foot pain. She gauges this by herability to shop longer without pain. Her right hand does have breakthrough pain with increased keyboard/mouse work activity, however it does not make her stop or miss work. Her psoriasis however has not improved it continues to be most bothersome and embarrassing on her scalp-especially right parietal/posterior auricular, as well as elbows. Morning stiffness is 0 minutes. Daily exercise is: walk Last appointment was: 12/2010 Outpatient Prescriptions Prior to Visit Medication Sig Dispense Refill ??? methotrexate 2.5 mg tablet Take 7 Tabs by mouth once a week. 84 Tab 3 ??? folic acid (FOLVITE) 1 mg tablet Take 1 Tab by mouth daily. 90 Tab 3 ??? atenolol (TENORMIN) 50 mg tablet Take 50 mg by mouth daily. ??? acetaminophen (TYLENOL) 500 mg tablet Take 1,000 mg by mouth every 6 hours. ??? diphenhydrAMINE (BENADRYL) 25 mg capsule Take 25 mg by mouth every 4 hours as needed. ??? triamcinolone (KENALOG) 0.1 % cream Apply topically 2 times daily. ??? naproxen (NAPROSYN) 500 mg tablet Take 500 mg by mouth as needed. Allergies include: Asa REVIEW OF SYSTEMS: Yes No Yes No Fever x Joint pain x hands Fatigue x Muscle pain x Night [...] depressed x Diarrhea x Skin rash/changes x scalp Constipation x Sun induced rash x Itching x Hand/Foot color change w/cold x Hair Loss x PHYSICAL EXAMINATION: BP 128/72 Pulse 76 Ht 165.7 cm (65.25) Wt 77.565 kg (171 lb) BMI 28.24 kg/m2 LMP 03/06/2011 GENERAL: Pleasant, well nourished patient, in no acute distress. Alert and oriented to person, placeand time. HEENT: NCAT, erythematous o/p erythematous dry cough- no swelling/exudates/or abscess. NECK: Supple, no thyroid enlargement--no cervical nodes HEART: Regular rate and rhythm, no murmurs. LUNGS: Clear to auscultation bilaterally MUSCULOSKELETAL: Neck: full ROM without pain Shoulders: No swelling, crepitus, or pain with full ROM Elbows: Full extension, no swelling, no nodules Wrists: No synovitis, no pain. Hands: Tender swollen R 2nd mcp and 4th PIP Complete fists with strong symmetric telephone ad taker strength. Knees: No effusion, no crepitus, no pain Ankles: No swelling or tenderness Feet: Right foot MTP #1,#2 tenderness NEURO: Gait is normal. Strength and sensation symmetric and intact throughout. LYMPH: no node enlargement SKIN: Psoriasis bilateral elbows,R>L parietal scalp/R ear --R neck PSYCH: Appropriate to situation LABS- 02/2011 RBC 4.54 WBC 8.11 Hg 13.9 Hct 39.4 PLT 351 AST 12 ALT 28 Creatinine 1.0 Albumin 4.1 Imaging: Diagnosis / Assessment: Psoriatic Arthritis-continued improvement with methotrexate with a joint count of 4 today. Her righthand and foot seem to be her areas of breakthrough pain. Her day to day joint pain is much better with almost no morning stiffness. Will continue to monitor and re-evaluate in 4 months. Psoriasis-moderate control with methotrexate. Suspect she will benefit with increasing methotrexate to 20 mg weekly-higher if needed. Discussed the possibility of not being able to control the psoriasis with methotrexate alone, however we do still have room to increase. Suggested that she try to maximixe the mtx by split dosing, decreased caffeine. (She is a non-smoker/non drinker.) For now she is interested in split dosing, increasing mtx to 20 mg weekly, but declines dermatology referral. Encounter for long-term medication management- While on methotrexate we will need to continue to monitor labs every 2-3 months for liver toxicity. February labs, as above, shown no abnormalities. Recommendations/Evaluation: 1. Increase methotrexate to #8 pills weekly (20 mg--can try split dosing ie #4 pills AM and #4 pills PM) 2. Continue folic acid 1 mg daily 3. Use tylenol or aleve or ibuprofen as needed for breakthrough pain 4. Continue labs as needed every 2-3 months 5. Call in one month with status 6. Follow up in [address] Phillips or sooner as needed with Tonia Bustos PA-C Barriers to learning identified: no Patient verbalizes understanding and agrees with plan: yes My supervising physician was Dr. Phillips who was immediately available for consult in the Rheumatology Suite. MICHAEL Carr 03/29/2011 10:08 Attestation statement: Supervising Physician CRISPIN PHILLIPS MD documented in this encounter Plan of Treatment Upcoming Encounters Date Type Specialty Care Team Description 02/28/2022 Office Visit Rheumatology Harsh Malloy, SURGICAL CORSETIER [address] [facility], [address], [address] [place], [place] [phone] (Wo rk) documented as of this encounter Visit Diagnoses Diagnosis Psoriatic arthritis (HCC) Psoriatic arthropathy Encounter for long-term (current) use of other medications documented in this encounter Discontinued Medications Medication Sig Discontinue Reason Start Date End Date methotrexate 2.5 mg tablet Take 7 Tabs by Reorder 12/28/2010 03/29/2011 mouth once a week. documented as of this encounter Care Teams Director Of Religious Activities Relationship Specialty Start Date End Date Meredith Rapp MD PCP - General 08/09/10 08/04/18 [address] [place] [phone] documented as of this encounter
--- OUTSIDE RECORDS SUMMARY | 2022-02-08 01:53 | XMS_ITS | Encounter Summary ---
:1970 Author Organization [facility] Address [address] [place] [address] Care Team Providers Name Role Phone Meredith Rapp MD Primary Care Provider Reason for Visit Reason Onset Date Comments Results 10/30/2010 Encounter Details Date Type Department Care Team Description 10/30/2010 Telephone [facility] Darrian Hernandez MD Results Rheumatology & Immunology - [address] [place] [address], [address] [address] [place] [phone] (Wo rk) Social History Tobacco Use Types Packs/Day Years Used Date Never Smoker Alcohol Use Standard Drinks/Week Comments No 0 (1 standard drink = 0.6 oz pure alcoho l) Sex Assigned at Date Recorded Female 06/29/2019 10:58 EST documented as of this encounter Miscellaneous Notes Telephone Encounter - Etelvina Hernandez MD - 10/30/2010 5828 EDT Recent labs and CXR are normal. Message left on patient's home machine. documented in this encounter Plan of Treatment Upcoming Encounters Date Type Specialty Care Team Description 02/28/2022 Office Visit Rheumatology Harsh Malloy, ELBERT [address] [phone] (Wo rk) documented as of this encounter Visit Diagnoses Not on filedocumented in this encounter Care Teams Switch Cleaner Relationship Specialty Start Date End Date Meredith Rapp MD PCP - General 08/09/10 08/04/18 [address] [place] [address] documented as of this encounter
--- OUTSIDE RECORDS SUMMARY | 2022-02-08 01:53 | XMS_ITS | Encounter Summary ---
:1970 Author Organization [facility] Address [address] [place] [address] Care Team Providers Name Role Phone Unknown, Provider Primary Care Provider Encounter Details Date Type Department Care Team Description 03/17/2003 Results Only [facility] - Emily Salcido, ELB[place] [address] [place] [address] [place] [address] [phone] Social History Tobacco Use Types Packs/Day Years Used Date Never Assessed Sex Assigned at Date Recorded Female 06/29/2019 10:58 EST documented as of this encounter Plan of Treatment Upcoming Encounters Date Type Specialty Care Team Description 02/28/2022 Office Visit Rheumatology Harsh Malloy NP [address] [facility], [facility], [address] [place] [phone] (Wo rk) documented as of this encounter Procedures Procedure Name Priority Date/Time Associated Diagnosis Comme nts CYTOPATHOLOGY Routine 03/17/2003 0:00 EST Results for this procedure are i n the results section . documented in this encounter Results CYTOPATHOLOGY (03/17/2003 0:00 EST) Pathology Report: CYTOPATHOLOGY REPORT [facility] Reports generated via electronic interface contain thomas ginal data; however they are lacking the format of the original re port. Caution should be taken when reading/interpreting unfo rmatted reports. Name: ? REILLY HUI ? Accession #: ? [id number] : ? 1970 (Age: 32) ??F ?Collect Date: ? 02/27 Location: ? [facility] ? Receive Date : ? 03/21/2003 Provider: ?EMILY CURRY SALES DEVELOPER Copy to: ? Specimen/Source: ?ThinPrep Pap Test, Cervix/ Endocervix Last Menstrual Period: ? 03/10/03 Other: ? HPVA - HPV testing requested if ASC-US on the current ThinPrep Pap test. ? SPECIMEN ADEQUACY ? Satisfactory for Evaluation - transformation zone component present - scant squamous epithelial component GENERAL CATEGORIZATION ? Negative for Intraepithelial Lesion or Malignan cy ? Document reviewed and electronically signed by: ? SAMUEL Pepe(ASCP) ? Report Date: ??03/25/2003 12:45 End of Report Specimen Performing Organization Address City/State/ZIP Code Phon e Number [facility] [address] [place] [address] SERVICES [facility] [address] [place] [address] documented in this encounter Visit Diagnoses Not on filedocumented in this encounter Care Teams Quarry Supervisor Relationship Specialty Start Date End Date Unknown, Provider, PCP - General 08/08/09 08/08/10 documented as of this encounter
--- OUTSIDE RECORDS SUMMARY | 2022-02-08 01:53 | XMS_ITS | Encounter Summary ---
:1970 Author Organization [facility] Address [address] [place] [address] Care Team Providers Name Role Phone Meredith Rapp MD Primary Care Provider Reason for Visit Reason Comments Joint Pain elbow, fingers,feet Encounter Details Date Type Department Care Team Description 12/28/2010 Office Visit [facility] Crispin Phillips Psor iatic arthritis ([facility]); Rheumatology & MD Encounter for long-term (current) use of other medications Immunology - Main [address] [facility] [address] [place] [address] [place], [place] [phone] (Wo rk) Social History Tobacco Use Types Packs/Day Years Used Date Never Smoker Alcohol Use Standard Drinks/Week Comments No 0 (1 standard drink = 0.6 oz pure alcoho l) Sex Assigned at Date Recorded Female 06/29/2019 10:58 EST documented as of this encounter Last Filed Vital Signs Vital Sign Reading Time Taken Comments Blood Pressure 122/78 12/28/2010 1047 EDT Pulse 68 12/28/2010 1047 EDT Temperature - - Respiratory Rate 14 12/28/2010 1047 EDT Oxygen Saturation - - Inhaled Oxygen Concentration - - Weight 80.7 kg (178 lb) 12/28/2010 1047 EDT Height 165.7 cm (5' 5.25) 12/28/2010 1047 EDT Body Mass Index 29.39 12/28/2010 1047 EDT documented in this encounter Patient Instructions Patient InstructionsCecilia Bustos PA - 12/28/2010 11:29 EDT 1. Increase methotrexate to #7 pills by mouth on 2. Continue folic acid daily 3. Labs every 2-3 months CBC with diff and DMARD profile 4. Follow-up in 3 months or prior as needed documented in this encounter Ordered Prescriptions Prescription Sig Dispensed Refills Start Date End Date folic acid (FOLVITE) 1 mg Take 1 Tab by mouth 90 Tab 3 0 12/28/2010 10/07/2011 tablet daily. methotrexate 2.5 mg tablet Take 7 Tabs by 84 Tab 3 12/2803/29/2011 mouth once a week. documented in this encounter Progress Notes Cecilia Bustos PA - 12/28/2010 1119 EDT Division of Rheumatology and Clinical Immunology Chief Complaint Patient presents with ??? Joint Pain elbow, fingers,feet HPI: This is a pleasant 40 year old female with psoriatic arthritis. Since being started on the methotrexate 12.5 mg weekly in September, she is feeling better, but not great. Morning stiffness is down to 1hour in the morning. One flare since September occuring today in her right 2nd PIP. She's had no problemswith methotrexate--no mouth sores, no rash, no fatigue or shortness of breath. Current outpatient prescriptions Medication Sig Dispense Refill ??? atenolol (TENORMIN) 50 mg tablet Take [...] Take 500 mg by mouth as needed. ??? methotrexate 2.5 mg tablet Take 5 Tabs by mouth once a week. 60 Tab 3 ??? folic acid (FOLVITE) 1 mg tablet Take 1 Tab by mouth daily. 90 Tab 3 Allergies include: Asa Past Medical History Diagnosis [...] Smoking status: Never Smoker ??? Smokeless tobacco: Not on file ??? Alcohol Use: No ??? Drug Use: ??? Sexually Active: Other Topics Concern ??? Not on file Social History Narrative ??? No narrative on file REVIEW OF SYSTEMS: Yes No Yes No Fever x Joint pain x Fatigue x Muscle pain x Night sweats x Morning stiffness x Weight change x If yes, duration 1 hr Gain or loss? Numbness/tingling x Eye discomfort [...] x Hair Loss x PHYSICAL EXAMINATION: BP 122/78 Pulse 68 Resp 14 Ht 165.7 cm (65.25) Wt 80.74 kg (178 lb) BMI 29.39 kg/m2 GENERAL: Pleasant, well nourished patient, in no acute distress. Alert and oriented to person, placeand time. HEENT: NCAT, PERRLA, NECK: Supple, no thyroid enlargement HEART: Regular rate and rhythm, no murmurs. LUNGS: Clear to auscultation ABDOMEN: Soft, non-tender, + bs x 4 MUSCULOSKELETAL: Bilateral elbow tenderness Swollen and tender R wrist, R MCPs #2-#4, PIPs #2-#5, R MTPs #2,#3 & L MTPs #2,#3, #4 Decreased contact center analyst strength (R>L) with incomplete fist Right hand-R #2 finger cannot touch palm Right knee red, tender Joint count = 16 No evidence of enthesitis NEURO: Strength and sensation symmetric and intact throughout. Reflexes 2+ throughout. LYMPH: no node enlargement SKIN: Psoriasis with significant scalp, bilateral ear and elbow involvement PSYCH: Appropriate to situation LABS Phlebotomy Only on 10/24/2010 Component Date Value ??? Potassium 10/24/2010 4.0 ??? Sodium 10/24/2010 143 ??? Chloride 10/24/2010 104 ??? CO2 10/24/2010 28 ??? Total Alkaline Phosphata* 10/24/2010 96 ??? Bilirubin, Total 10/24/2010 0.7 ??? AST 10/24/2010 18 ??? ALT 10/24/2010 14 ??? Albumin 10/24/2010 4.5 ??? Total Protein 10/24/2010 7.7 ??? Creatinine 10/24/2010 0.80 ? ? GFR, Calculated 10/24/2010 >60 ??? BUN 10/24/2010 16 ??? Calcium 10/24/2010 9.2 ??? Calculated Calcium 10/24/2010 9.1 ??? Glucose, Serum 10/24/2010 99 ??? Fasting? 10/24/2010 No ??? WBC 10/24/2010 9.02 ??? RBC 10/24/2010 4.87 ??? Hemoglobin 10/24/2010 14.7 ??? HCT 10/24/2010 43.2 ??? MCV 10/24/2010 89 ??? MCH 10/24/2010 30.2 ??? MCHC 10/24/2010 34.1 ??? PLT 10/24/2010 317 ??? RDW-CV 10/24/2010 13.6 ??? Neutrophils 10/24/2010 69.1 ??? Lymphocytes 10/24/2010 19.9 ??? Monocytes 10/24/2010 8.0 ??? Eosinophils 10/24/2010 2.0 ??? Basophils 10/24/2010 1.0 ??? ABS Neutrophils 10/24/2010 6.23 ??? ABS Lymphs 10/24/2010 1.79 ??? ABS Monocytes 10/24/2010 0.72 ??? ABS Eosinophils 10/24/2010 0.18 ??? ABS Basophils 10/24/2010 0.09 ??? Type of Diff: 10/24/2010 Automated ??? Sed. Rate Westergren 10/24/2010 14 ??? CCP Antibodies 10/24/2010 0.42 Imaging: A normal baseline chest x-ray was obtained 09/2010 prior to initiating methotrexate therapy Diagnosis / Assessment: 1. Psoriatic Arthritis-moderate control with methotrexate 12.5mg weekly x 2 months. Joint count is 16 today with active psoriasis. Although still early in her course of methotrexate therapy, the patient would clearly benefit from maximizing her methotrexate dosage. We expect to see increasing joint imp rovement as well as psoriatic clearing over the next few months. If the psoriasis does not improve, we will need a dermatology consult for input on topical prescriptions. Recommendations/Evaluation: 1. Increase methotrexate to #7 pills by mouth on 2. Continue folic acid 2 g daily 3. Labs every 2-3 months CBC with diff and DMARD profile 4. Follow-up in 3 months or prior as needed Barriers to learning identified: No Patient verbalizes understanding and agrees with plan Yes I spent a total of 25 minutes in face to face time with this patient and 15 minutes of that time wasspent in counseling and coordination of care as described in the progress note. MICHAEL Carr 12/28/2010 11:01 This patient was seen by the PA her supervising physician, Dr. Phillips. Attestation statement: I saw and examined the patient with the PA. I agree with the findings and plan of care documented in the PA's note. CRISPIN PHILLIPS MD documented in this encounter Plan of Treatment Upcoming Encounters Date Type Specialty Care Team Description 02/28/2022 Office Visit Rheumatology Harsh Malloy, ELB[place] [address] [facility], [facility], [address] [place], [place] [phone] (Wo rk) documented as of this encounter Visit Diagnoses Diagnosis Psoriatic arthritis (HCC) Psoriatic arthropathy Encounter for long-term (current) use of other medications documented in this encounter Discontinued Medications Medication Sig Discontinue Reason Start Date End Date methotrexate 2.5 mg tablet Take 5 Tabs by 10/24/2010 12/28/2010 mouth once a week. folic acid (FOLVITE) 1 mg Take 1 Tab by Reorder 10/24/2010 0 12/28/2010 tablet mouth daily. documented as of this encounter Care Teams Wax Ball Molder Relationship Specialty Start Date End Date Meredith Rapp MD PCP - General 08/09/10 08/04/18 [address] [place] [address] documented as of this encounter
--- OUTSIDE RECORDS SUMMARY | 2022-02-08 01:53 | XMS_ITS | Encounter Summary ---
:1970 Author Organization [facility] Address [address] [place] [address] Care Team Providers Name Role Phone Meredith Rapp MD Primary Care Provider Encounter Details Date Type Department Care Team Description 07/30/[address] [facility] Outlet Manager, Neftali milleric arthritis [place] - [facility] Encounter for long-term (cur rent) use of other medications [address], [place] [address] Social History Tobacco Use Types Packs/Day Years Used Date Never Smoker Smokeless Tobacco: Never Used Alcohol Use Standard Drinks/Week Comments No 0 (1 standard drink = 0.6 oz pure alcoho l) Sex Assigned at Date Recorded Female 06/29/2019 10:58 EST documented as of this encounter Plan of Treatment Upcoming Encounters Date Type Specialty Care Team Description 02/28/2022 Office Visit Rheumatology Harsh Malloy, MANAGER EXCHANGE [address] [facility], [facility] ivan Ruiz, [address] [place], [place] [address] (Wo rk) documented as of this encounter Procedures Procedure Name Priority Date/Time Associated Diagnosis Comme nts COMPLETE BLOOD COUNT Routine 07/30/2011 16:29 Psoriatic arthri tis Results for this AND DIFFERENTIAL EDT ([facility] procedure are in Encounter for the results long-term (current) section. use of other medications ALT Routine 07/30/2011 16:29 Psoriatic arthritis Resu lts for this EDT ([facility] procedure are in Encounter for the results long-term (current) section. use of other medications AST Routine 07/30/2011 16:29 Psoriatic arthritis Resu lts for this EDT ([facility] procedure are in Encounter for the results long-term (current) section. use of other medications ALKALINE PHOSPHATASE Routine 07/30/2011 16:29 Psoriatic arthri tis Results for this EDT ([facility] procedure are in Encounter for the results long-term (current) section. use of other medications CREATININE Routine 07/30/2011 16:29 Psoriatic arthritis Resu lts for this EDT ([facility] procedure are in Encounter for the results long-term (current) section. use of other medications ALBUMIN Routine 07/30/2011 16:29 Psoriatic arthritis Resu lts for this EDT ([facility] procedure are in Encounter for the results long-term (current) section. use of other medications documented in this encounter Results (ABNORMAL) HEMAGRAM AND DIFFERENTIAL (07/30/2011 16:29 EDT) Pathologist Sig nature WBC 6.70 4.0 - 12.4 K/cmm [facility] RBC 4.57 3.86 - 5.04 M/cmm [facility] Hemoglobin 13.5 11.6 - 15.2 gm/dl [facility] HCT 39.8 34.9 - 44.4 % [facility] MCV 87 81 - 98 fl [facility] MCH 29.6 26.7 - 33.3 pg [facility] MCHC 34.0 32.1 - 35.9 gm/dl [facility] PLT 327 (H) 141 - 320 K/cmm [facility] RDW-CV 16.1 (H) 11.7 - 14.6 % [facility] Neutrophils 64.5 45.5 - 79.7 % [facility] Lymphocytes 22.2 15.0 - 46.8 % [facility] Monocytes 10.6 1.8 - 12.0 % [facility] Eosinophils 2.2 0.6 - 6.9 % [facility] Basophils 0.5 0.2 - 1.4 % [facility] ABS Neutrophils 4.32 2.20 - 8.85 K/cmm [facility] ABS Lymphs 1.49 1.09 - 3.30 K/cmm [facility] ABS Monocytes 0.71 0.1 - 0.8 K/cmm [facility] ABS Eosinophils 0.15 0.03 - 0.61 K/cmm [facility] ABS Basophils 0.03 0.01 - 0.11 K/cmm [facility] Type of Diff: Automated [facility] Specimen Blood specimen (specimen) Performing Organization Address [facility]/ZIP Code Phon e Number [facility] [address] [place] [address] SERVICES [facility] [address] [place] [address] CREATININE (07/30/2011 16:29 EDT) Pathologist Sig nature Creatinine 0.75 0.52 - 1.04 mg/dl [facility] GFR, Calculated >60 >60 ml/min/1.73m2 [facility] Specimen Blood specimen (specimen) Performing Organization Address [facility]/ZIP [facility] Phon e Number [facility] [address] [place] [address] SERVICES [facility] [address] [place] [address] AST (07/30/2011 16:29 EDT) Pathologist Sig nature AST 23 15 - 46 U/L [facility] Specimen Blood specimen (specimen) Performing Organization Address [facility] Phon e Number [facility] [address] [place] [address] SERVICES [facility] [address] [place] [address] ALT (07/30/2011 16:29 EDT) Pathologist Sig nature ALT 28 9 - 52 U/L [facility] Specimen Blood specimen (specimen) Performing Organization Address City/[facility]/ZIP [facility] Phon e Number [facility] [address] [place] [address] SERVICES [facility] [address] [place] [address] ALKALINE PHOSPHATASE (07/30/2011 16:29 EDT) Pathologist Sig nature Total Alkaline 78 38 - 126 U/L [facility] Phosphatase Specimen Blood specimen (specimen) Performing Organization Address [facility]/ZIP [facility] Phon e Number [facility] [address] [place] [address] SERVICES [facility] [address] [place] [address] ALBUMIN (07/30/2011 16:29 EDT) Pathologist Sig nature Albumin 4.3 3.4 - 4.9 g/dl [facility] Specimen Blood specimen (specimen) Performing Organization Address City/State/ZIP Code Phon e Number [facility] [address] [place] [address] SERVICES [facility] [address] [place] [address] documented in this encounter Visit Diagnoses Diagnosis Psoriatic arthritis (HCC) Psoriatic arthropathy Encounter for long-term (current) use of other medications documented in this encounter Care Teams Finishing Supervisor Relationship Specialty Start Date End Date Meredith Rapp MD PCP - General 08/09/10 08/04/18 [address] [place] [address] documented as of this encounter
[2022-02-08 08:19] LABS: Abs Immature Grans 0.02 10^3/uL (0.0-0.06); Absolute Basophil Count 0.04 10^3/uL (0.0-0.2); Absolute Eosinophil Count 0.18 10^3/uL (0.0-0.7); Absolute Lymphocyte Count 1.71 10^3/uL (1.2-3.4); Absolute Monocyte Count 0.55 10^3/uL (0.1-0.8); Absolute Neutrophil Count 3.28 10^3/uL (1.2-6.7); Basophils % 0.7; Eosinophils % 3.1; HCT 39.7 % (36.0-46.0); HGB 13.4 g/dL (11.2-15.7); Immature Grans % 0.3; Lymphocytes % 29.6; MCHC 33.8 % (32.0-36.0); MCV 95 fL (80-95); MPV 9.7 fL (8.0-11.0); Monocytes % 9.5; Neutrophils % 56.8; Platelet Count 215 10^3/uL (130-400); RBC 4.19 10^6/uL (3.93-5.22); RDW-SD 44.9 fL; WBC 5.78 10^3/uL (4.4-10.8)
[2022-02-08 08:41] LABS: ALT 22 U/L (14-59); AST 23 U/L (15-37); Albumin 3.7 g/dL (3.4-5.0); Alkaline Phosphatase 83 U/L (46-116); Anion Gap 3.4 mmol/L (3-11); BUN 18 mg/dL (7-18); Bilirubin, Total 0.3 mg/dL (0.2-1.0); CO2 31.6 mmol/L (21.0-32.0); Calcium 8.6 mg/dL (8.5-10.1); Chloride 104 mmol/L (98-107); Estimated GFR 67.36 (mL/min/1.73m2); Glucose 116 mg/dL (74-106); Potassium 4.8 mmol/L (3.5-5.1); Sodium 139 mmol/L (136-145); Total Protein 7.1 g/dL (6.4-8.2)
== END 2022-02-08 01:45 | disposition home or self-care (01) ==
LOC: LBO 01:45
PROVIDERS: PCP Nurse Practitioner Family; Visit Provider Nurse Practitioner Family
DX: L40.50 Arthropathic psoriasis, unspecified (principal); Z79.899 Other long term (current) drug therapy
CPT/HCPCS: 36415; 80053; 85025

== ENCOUNTER 2022-03-16 12:42 | Outpatient (REF) | payer BC, SELFPAY ==
[2022-03-18 13:01] LABS: COVID-19 RT-PCR UVMMC Result Negative (Negative)
== END 2022-03-16 12:43 | disposition home or self-care (01) ==
LOC: NCHCN 12:42
PROVIDERS: PCP Nurse Practitioner Family; Visit Provider Physician Assistant Medical
DX: U07.1 COVID-19 (principal)
CPT/HCPCS: U0003

== ENCOUNTER 2022-06-17 02:52 | Outpatient (CLI) | payer BC, SELFPAY ==
[2022-06-17 14:16] LABS: Abs Immature Grans 0.04 10^3/uL (0.0-0.06); Absolute Basophil Count 0.05 10^3/uL (0.0-0.2); Absolute Eosinophil Count 0.15 10^3/uL (0.0-0.7); Absolute Lymphocyte Count 2.72 10^3/uL (1.2-3.4); Absolute Monocyte Count 0.62 10^3/uL (0.1-0.8); Basophils % 0.6; Eosinophils % 1.8; HCT 42.6 % (36.0-46.0); HGB 14.6 g/dL (11.2-15.7); Immature Grans % 0.5; Lymphocytes % 32.5; MCH 31.7 pg (27.0-33.0); MCHC 34.3 % (32.0-36.0); MCV 93 fL (80-95); MPV 9.4 fL (8.0-11.0); Monocytes % 7.4; Neutrophils % 57.2; Platelet Count 256 10^3/uL (130-400); RDW 13.2 % (11.7-14.6); RDW-SD 44.5 fL; WBC 8.38 10^3/uL (4.4-10.8)
[2022-06-17 14:53] LABS: ALT 22 U/L (14-59); AST 24 U/L (15-37); Alkaline Phosphatase 83 U/L (46-116); BUN 7 mg/dL (7-18); Bilirubin, Total 0.5 mg/dL (0.2-1.0); Calcium 8.9 mg/dL (8.5-10.1); Chloride 106 mmol/L (98-107); Estimated GFR 67.36 (mL/min/1.73m2); Glucose 85 mg/dL (74-106); Potassium 3.6 mmol/L (3.5-5.1); Sodium 144 mmol/L (136-145); Total Protein 7.5 g/dL (6.4-8.2)
== END 2022-06-17 02:53 | disposition home or self-care (01) ==
PROVIDERS: PCP Nurse Practitioner Family; Visit Provider Nurse Practitioner Family
DX: L40.50 Arthropathic psoriasis, unspecified (principal); Z79.899 Other long term (current) drug therapy
CPT/HCPCS: 36415; 80053; 85025

== ENCOUNTER 2022-10-16 02:49 | Outpatient (CLI) | payer BC, SELFPAY ==
[2022-10-16 07:18] LABS: Abs Immature Grans 0.01 10^3/uL (0.0-0.06); Absolute Basophil Count 0.05 10^3/uL (0.0-0.2); Absolute Eosinophil Count 0.13 10^3/uL (0.0-0.7); Absolute Lymphocyte Count 1.87 10^3/uL (1.2-3.4); Absolute Monocyte Count 0.37 10^3/uL (0.1-0.8); Absolute Neutrophil Count 2.64 10^3/uL (1.2-6.7); Eosinophils % 2.6; HCT 40.3 % (36.0-46.0); HGB 13.9 g/dL (11.2-15.7); Immature Grans % 0.2; Lymphocytes % 36.9; MCH 32.3 pg (27.0-33.0); MCHC 34.5 % (32.0-36.0); MCV 94 fL (80-95); MPV 9.2 fL (8.0-11.0); Monocytes % 7.3; Platelet Count 254 10^3/uL (130-400); RBC 4.31 10^6/uL (3.93-5.22); RDW 13.1 % (11.7-14.6); RDW-SD 44.5 fL; WBC 5.07 10^3/uL (4.4-10.8)
[2022-10-16 08:20] LABS: ALT 22 U/L (14-59); AST 25 U/L (15-37); Albumin 3.9 g/dL (3.4-5.0); Alkaline Phosphatase 77 U/L (46-116); Anion Gap 7.4 mmol/L (3-11); BUN 13 mg/dL (7-18); Bilirubin, Total 0.8 mg/dL (0.2-1.0); CO2 30.6 mmol/L (21.0-32.0); Calcium 9.1 mg/dL (8.5-10.1); Chloride 101 mmol/L (98-107); Estimated GFR 66.95 (mL/min/1.73m2); Glucose 130 mg/dL (74-106); Potassium 3.7 mmol/L (3.5-5.1); Sodium 139 mmol/L (136-145); Total Protein 7.6 g/dL (6.4-8.2)
== END 2022-10-16 02:50 | disposition home or self-care (01) ==
PROVIDERS: PCP Nurse Practitioner Family; Visit Provider Nurse Practitioner Family
DX: L40.50 Arthropathic psoriasis, unspecified (principal); Z79.899 Other long term (current) drug therapy
CPT/HCPCS: 36415; 80053; 85025

== ENCOUNTER 2022-11-13 14:50 | Outpatient (REF) | payer BC, SELFPAY ==
--- NOTE | 2022-11-13 09:15 | PAPFT_PTH ---
PATIENT: Nina Boothe [facility] U[id number] AGE/SX: 52/F ROOM: RE11/13/[address]: Kayleigh Mallory : 1970 BED: DIS: 11/13/2022 SPEC #: [id number] RECD: 11/13/22 15:13 STATUS: FATOUMATA RELesa #: [id number] MJ: 11/13/22 09:[address]: Kayleigh Mallory DEPT: [facility] Cytology RECD BY: Linda Stanton Tissues: 1 - CX/ENDOCX FOR PAP SMEARS Procedures: PAP THIN PREP/UVM Screening HPV DNA PROBE Comments: [id number]
== END 2022-11-13 14:51 | disposition home or self-care (01) ==
LOC: NCHCN 14:50
PROVIDERS: PCP Nurse Practitioner Family; Visit Provider Nurse Practitioner Family
DX: Z00.00 Encounter for general adult medical examination without abnormal findings (principal); Z12.4 Encounter for screening for malignant neoplasm of cervix; Z11.51 Encounter for screening for human papillomavirus (HPV)
CPT/HCPCS: 88142; 87624

== ENCOUNTER 2022-11-21 03:34 | Outpatient (CLI) | payer BC, SELFPAY ==
--- NOTE | 2022-11-21 | DI.MAMMO_ITS ---
Exam(s) MAMMO SCREENING EXAM: MAMMO SCREENING CLINICAL HISTORY: SCREENING, Z12.39. TECHNIQUE: Bilateral full field digital CC and MLO mammographic images were obtained with 3D tomosyn thesis and utilizing computer aided detection (CAD). COMPARISON: Prior mammograms were reviewed. FINDINGS: No new significant findings in the right breast. Left breast there is an area of asymmetric density seen on CC view measuring approximately 10 x 11 mm and located approximately 7 cm in from the nipple. More evident than on previous studies. Compress ion view recommended There are no malignant-appearing microcalcification groups in this region or elsewhere in either [address]. Scattered benign-appearing microcalcifications are again noted bilaterally. Additional small be nign-appearing nodule posteriorly in left breast is unchanged and probably a benign lymph node. There is no significant architectural distortion nor skin thickening-retraction. IMPRESSION: 1. No radiographic evidence of malignancy in right breast. 2. Asymmetric density-possible nodule in the left breast. Spot compression CC view and breast ultras ound recommended. BI-RADS Category 0 - Assessment Incomplete: Need additional imaging evaluation Breast Density - Category B - Scattered areas of fibroglandular density Breast density Category C or D implies that the patient has dense breast tissue. Dense breast tissue can make it harder to find cancer on a mammogram. Dense breast tissue is also associated with an incr eased risk of breast cancer. This information about the result of the mammogram report was provided to the patient to raise their awareness. Use this report when you speak with the patient about their risks for breast cancer, which includes their family history. At that time, you may recommend additional screening tests (Ultrasoun d or MRI) as these tests may add significant information. A negative radiographic report should not delay biopsy if a dominant or clinically suspicious mass is present. Up to ten percent of cancers are not identified on mammography. A negative report may reinforce clinical impression. Adenosis and dense breasts may obscure an underlying neoplasm. False positive reports average 6 to 10%. Patient will receive a letter notifying them of these results.
== END 2022-11-21 03:54 ==
LOC: DI 03:34
PROVIDERS: PCP Nurse Practitioner Family; Visit Provider Nurse Practitioner Family
DX: Z12.31 Encounter for screening mammogram for malignant neoplasm of breast (principal)
CPT/HCPCS: 77063; 77067

== ENCOUNTER 2022-11-26 01:54 | Outpatient (CLI) | payer BC, SELFPAY ==
--- NOTE | 2022-11-26 | DI.MAMMO_ITS ---
Exam(s) MG MAMMO SCREEN CALL BACK UNI US BREAST LT LIMITED EXAM: MG MAMMO SCREEN CALL BACK UNI CLINICAL HISTORY: F/U MAMMO, ASYMMETRIC DENSITY POSSIBLE NODULE LT BREAST. TECHNIQUE: Craniocaudal and mediolateral oblique spot compression digital Mammography views of the left breast with Tomosynthesis and left breast ultrasound. COMPARISON: MG MG MAMMO SCREENING from 05/03/2019 MG MG MAMMO SCREENING from 05/17/2021 MG MG MAMMO SCREENING from 11/21/2022 FINDINGS: Mammography/Tomosynthesis: Cc and MLO spot compression views show no persistent mass. There is dense tissue in the superior por tion of the breast. Left breast US: Echotexture: Normal appearance of the glandular tissue. Shadowing: No suspicious foci. Cyst: None. Solid lesions: None seen. Ductal dilation: None. IMPRESSION: 1. No evidence of malignancy is noted. 2. The findings were discussed with the patient on the date of the examination. BI-RADS Category 3 - 6 month - Probably Benign Finding: Recommend follow-up mammography in 6 months Breast Density - Category B - Scattered areas of fibroglandular density A negative radiographic report should not delay biopsy if a dominant or clinically suspicious mass is present. Up to ten percent of cancers are not identified on mammography. A negative report may reinforce clinical impression. Adenosis and dense breasts may obscure an underlying neoplasm. False positive reports average 6 to 10%. Patient will receive a letter notifying them of these results.
== END 2022-11-26 02:14 ==
LOC: DI 01:56
PROVIDERS: PCP Nurse Practitioner Family; Visit Provider Nurse Practitioner Family
DX: Z12.31 Encounter for screening mammogram for malignant neoplasm of breast (principal); R92.8 Other abnormal and inconclusive findings on diagnostic imaging of breast
CPT/HCPCS: 76642; 77063; 77067

== ENCOUNTER 2023-02-11 09:21 | Outpatient (REF) | payer BC, SELFPAY ==
[2023-02-11 16:04] LABS: HCT 42.1 % (36.0-46.0); HGB 14.6 g/dL (11.2-15.7); MCH 32.7 pg (27.0-33.0); MCHC 34.7 % (32.0-36.0); MCV 94 fL (80-95); MPV 10.4 fL (8.0-11.0); Platelet Count 260 10^3/uL (130-400); RBC 4.47 10^6/uL (3.93-5.22); RDW 12.4 % (11.7-14.6); RDW-SD 42.8 fL; WBC 5.78 10^3/uL (4.4-10.8)
[2023-02-11 16:27] LABS: ALT 20 U/L (14-59); AST 17 U/L (15-37); Alkaline Phosphatase 80 U/L (46-116); Anion Gap 7.1 mmol/L (3-11); BUN 15 mg/dL (7-18); Bilirubin, Total 0.5 mg/dL (0.2-1.0); CO2 28.9 mmol/L (21.0-32.0); CREATININE 0.8 mg/dL (0.55-1.02); Calcium 9.4 mg/dL (8.5-10.1); Calculated LDL 122 mg/dL (<100); Chloride 105 mmol/L (98-107); Cholesterol 198 mg/dL (<200); Glucose 94 mg/dL (74-106); HDL Cholesterol 64 mg/dL (40-60); Potassium 4.8 mmol/L (3.5-5.1); Sodium 141 mmol/L (136-145); Total Protein 7.3 g/dL (6.4-8.2); Triglyceride 62 mg/dL (<150)
== END 2023-02-11 09:22 | disposition home or self-care (01) ==
LOC: NCHCN 09:21
PROVIDERS: PCP Nurse Practitioner Family; Visit Provider Nurse Practitioner Family
DX: I10 Essential (primary) hypertension (principal); Z79.899 Other long term (current) drug therapy
CPT/HCPCS: 80053; 80061; 85027

== ENCOUNTER 2023-05-20 10:29 | Outpatient (REF) | payer BC, SELFPAY ==
--- OUTSIDE RECORDS SUMMARY | 2023-05-20 10:31 | XMS_ITS | Continuity of Care Document ---
Author Name Unknown Organization [facility] Address [address] [place] [address] Care Team Providers Care Clay Grinder Name Role Phone MAYKEL RODRÍGUEZ Primary Care Physician [phone] Encounter [facility] NBR [id number] Date(s): 10/21/22 - 10/21/22 [facility] [address] [place], [place] [address] Encounter Diagnosis Chronic vulvitis(Discharge Diagnosis) - 10/21/22 Menopausal symptom(Discharge Diagnosis) - 10/21/22 Overactive bladder(Discharge Diagnosis) - 10/21/22 Discharge Disposition: Home or Self Care Attending Physician: Xander Alvarez MD Allergies, Adverse Reactions, Alerts Substance Reaction Severity Status aspirin itchy throat Hives Moderate Active Assessment and Plan Future Appointments Functional Status 10/21/22 Living Environment Home Environment No qualifying data available Other exposure to Infectious Disease Non e Immunizations Given and Recorded Vaccine Date Status Refusal Reason SARS-CoV-2 (COVID-19) mRNA BNT-162b2 vax 01/30/21 Recorded SARS-CoV-2 (COVID-19) mRNA BNT-162b2 vax 06/28/20 Recorded SARS-CoV-2 (COVID-19) mRNA BNT-162b2 vax 06/07/20 Recorded Medications cetirizine 10 mg oral tablet 10 mg = 1 tab, Oral, Daily, # 90 tab, 0 Refill(s) Start Date: 10/18/22 Status: Ordered estradiol 0.1 mg/g vaginal cream 1 g, VAG, Mon/Fri/Fri, # 42.5 g, 4 Refill(s), Pharmacy: [facility] ([facility] ) Start Date: 10/21/22 Stop Date: 01/14/24 Status: Ordered fluticasone 50 mcg/inh nasal spray 1 sprays, Nasal, every morning, 0 Refill(s) Start Date: 10/18/22 Status: Ordered folic acid 1 mg oral tablet 90 EA, TAKE 1 TABLET BY MOUTH DAILY, 0 Refill(s) Start Date: 10/18/22 Status: Ordered halobetasol 0.05% topical ointment 15 g, APPLY TOPICALLY TO THE AFFECTED AREA EVERY DAY, 0 Refill(s) Start Date: 10/18/22 Status: Ordered Humira Pen 40 mg/0.4 mL subcutaneous kit 40 mg = 0.4 mL, Subcutaneous, every 2 wk, # 2 EA, 0 Refill(s) Start Date: 10/18/22 Status: Ordered lisinopril 10 mg oral tablet 10 mg = 1 tab, Oral, Daily, # 90 tab, 0 Refill(s) Start Date: 10/18/22 Status: Ordered methotrexate 2.5 mg oral tablet 40 EA, TAKE 10 TABLETS BY MOUTH ONCE A WEEK, 0 Refill(s) Start Date: 10/18/22 Status: Ordered multivitamin adult, oral tablet 1 tab, Oral, Daily, # 90 tab, 0 Refill(s) Start Date: 10/18/22 Status: Ordered oxybutynin 5 mg oral tablet 5 mg = 1 tab, Oral, Daily, 0 Refill(s) Start Date: 10/18/22 Stop Date: 11/17/22 Status: Ordered Problem List Condition Confirmation Course Effective Dates Status Health St atus Informant Chronic vulvitis Confirmed Active Exercise-induced asthma Confirmed Active History of anal fissures Confirmed Active Hypertension Confirmed Active Psoriasis Confirmed Active Psoriatic arthritis Confirmed Active Procedures Procedure Date Related Diagnosis Body Site Status Anterior and posterior repair 06/07/21 Completed Colonoscopy 03/25/21 Completed Anal sphincterotomy 2019 Compl eted Arthroscopic knee procedure Completed Bilateral tubal ligation Completed Vital Signs Most recent to oldest [Reference Range]: 1 Blood Pressure [90-140/60-90 mmHg] 132/8 0mmHg (10/21/22 7:54 AM) Weight 70.3 kg (10/21/22 7:54 AM) Weight Measured (lbs) 154.985 lb (10/21/22 7:54 AM) [place] Body Weight Calculated 57 kg (10/21/22 7:54 AM) Height 165.10 cm (10/21/22 7:54 AM) Height/Length Measured (inches) 65 inch (10/21/22 7:54 AM) BSA Measured 1.8 m2 (10/21/22 7:54 AM) Body Mass Index 25.79 kg/m2 (10/21/22 7:54 AM) Social History Social History Type Response Tobacco Never tobacco user T obacco Use:. Sex Female Physician Outpatient Note * Xander Alvarez MD: PERFORM Event Display: Office Clinic Note Physician Authored Date: [id number] REILLY HUI :1970 Age:52 years Sex:Female Visit Date:10/21/2022 Primary Care Physician: MAYKEL RODRÍGUEZ Chief Complaint LODGE OFFICER established: Follow-up vulvitis History of Present Illness The patient presents in distant follow-up well-known to me.?? She is status post anterior and posterior repairs of the vagina in May 2021.?? At the same time she was noted to have chronic vulvitis.?? She has been treating it with halobetasol.?? More recently she using the medication on a weekly basis.?? She has never had an abnormal Pap smear and thinks her last was done in 2019.?? The couple use tubal ligation for contraception.?? She just did a tough motor and had??incontinence with the event.?? 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 ?? She states that she has??noted??some flares with her??vulvitis.?? She leaks enough urine now that she??needs to wear a larger pad. ??Occasionally the pad gets??saturated with urine??which seems toset off the vulvitis symptoms.?? Minimal cough/strain related incontinence but she does leak when she is running.?? She uses oxybutynin to help with overactive bladder symptoms. Physical Exam Vitals & Measurements BP:??132/80?? HT:??165.10??cm?? WT:??70.3??kg?? BMI:??25.79?? BSA:??1.8?? LODGE OFFICER:??A focused exam on the vulva notes??evidence of??lichen simplex chronicus??with??skin color changes involving the periclitoral, labia minora, and perineal body mucosa.?? Again she has??melanosis??globally on the vulva but no worrisome lesions.?? The tissues are atrophic.?? The prolapse??repairis holding nicely. ??The tissues in the vagina are atrophic as well. Clinic Assessment/Plan 1.??Chronic vulvitis??N76.3 In regards to the vulvitis, I recommended she use her halobetasol twice daily for couple weeks and then??titrate the dosing strategy to??2 nights per week again.?? If the symptoms are not improving Iasked that she call. 2.??Menopausal symptom??N95.1 3.??Overactive bladder??N32.81 The dramatic??escalation of her??overactive bladder symptoms??deserves some attention. ??I recommended??using a medication to estrogenized??the vagina and bladder neck.?? We will get back together in6 months to see how this plan is working for her as well as to follow-up??the??apparent??allergic vulvitis??she is suffering from.?? This was a 40-minute appointment with the majority of this time spent reviewing her??history of??vulvitis but also??the plans to help treat her overactive bladder symptoms. Additional Actions: ORDERED - estradiol topical, 1 g, VAG, Mon/Wed/Fri, # 42.5 g, 4 Refill(s), Pharmacy: [facility] ([facility] ) Problem List/Past Medical History Ongoing Chronic vulvitis Exercise-induced asthma History of anal fissures Hypertension Psoriasis Psoriatic arthritis Historical Procedure/Surgical History ???Anterior and posterior repair (06/08/2021)???Colonoscopy (03/26/2021)???Anal sphincterotomy (2019)???Arthroscopic knee procedure???Bilateral tubal ligation Medications What How Much When Instructions New estradiol topical (estradiol 0.1 mg/ g vaginal cream) 1 Gram Vaginal (in the vagina) Mon/Wed/Fri Duration: 90 Days Refills: 4 Pickup at [facility] ([facility] ) Unchanged adalimumab (Humira Pen 40 mg/ 0.4 mL subcutaneous kit) 0.4 Milliliters Subcutaneous (under the skin) Every other week Contact prescribing physician if questions or concerns ?? Unchanged cetirizine (cetirizine 10 mg oral tablet) 1 tab Oral (given by mouth) Every day Contact prescribing physician if questions or concerns ?? Unchanged fluticasone nasal (fluticasone 50 mcg/ inh nasal spray) 1 Sprays Nasal (into the nose) Every morning Contact prescribing physician if questions or concerns ?? Unchanged folic acid (folic acid 1 mg oral tablet) 90 EA, TAKE 1 TABLET BY MOUTH DAILY Contact prescribing physician if questions or concerns ?? Unchanged halobetasol topical (halobetasol 0.05% topical ointment) 15 g, APPLY TOPICALLY TO THE AFFECTED AREA EVERY DAY Contact prescribing physician if questions or concerns ?? Unchanged lisinopril (lisinopril 10 mg oral tablet) 1 tab Oral (given by mouth) Every day Contact prescribing physician if questions or concerns ?? Unchanged methotrexate (methotrexate 2.5 mg oral tablet) 40 EA, TAKE 10 TABLETS BY MOUTH ONCE A WEEK Contact prescribing physician if questions or concerns ?? Unchanged multivitamin (multivitamin adult, oral tablet) 1 tab Oral (given by mouth) Every day Contact prescribing physician if questions or concerns ?? Unchanged oxybutynin (oxybutynin 5 mg oral tablet) 1 tab Oral (given by mouth) Every day Duration: 30 Days Contact prescribing physician if questions or concerns ?? Pharmacy Information [facility] ([facility] ): [address] [place] [phone] Allergies aspirin??(itchy throat, Hives) Social History Alcohol Current, Wine, 1-2 times per week Electronic Cigarette/Vaping Electronic Cigarette Use: Never. Employment/School Employed, Work/School description: [employer]. Highest education level: Some college. Home/Environment Lives with Children, Spouse. Living situation: Home/Independent. Sexual Sexually active: Yes. Substance Use Never Tobacco Never tobacco user Tobacco Use:. Family History Cancer: Grandmother (P). Diabetes mellitus: Brother. Heart attack: Father. Hypertension: Father and Sister. Family Member(s): ?? BROTHER, at age: Unknown. Cause of : Family Member(s): ?? MOTHER, at age: 22 Years. Cause of : Immunizations Vaccine Date Status SARS-CoV-2 (COVID-19) mRNA BNT-162b2 vax 01/30/2021 Recorded SARS-CoV-2 (COVID-19) mRNA BNT-162b2 vax 06/28/2020 Recorded SARS-CoV-2 (COVID-19) mRNA BNT-162b2 vax 06/07/2020 Recorded Electronically Signed on 10/21/22 09:52 AM Xander Alvarez MD Patient Care team information Care Team Personnel Name: MAYKEL RODRÍGUEZ Position: No Access Member Role: Primary Care Physician Address: Address: [place] [address]- Care Team Related Persons Name: RODY HUI JR Address: Home [address] Name: SYLVESTER GARG
[2023-05-20 14:21] LABS: Abs Immature Grans 0.03 10^3/uL (0.0-0.06); Absolute Basophil Count 0.08 10^3/uL (0.0-0.2); Absolute Eosinophil Count 0.25 10^3/uL (0.0-0.7); Absolute Lymphocyte Count 1.64 10^3/uL (1.2-3.4); Absolute Monocyte Count 0.66 10^3/uL (0.1-0.8); Eosinophils % 3.1; HCT 44.7 % (36.0-46.0); HGB 15.8 g/dL (11.2-15.7); Immature Grans % 0.4; Lymphocytes % 20.3; MCH 32.9 pg (27.0-33.0); MCHC 35.3 % (32.0-36.0); MCV 93 fL (80-95); MPV 9.6 fL (8.0-11.0); Monocytes % 8.2; Platelet Count 290 10^3/uL (130-400); RDW 12.8 % (11.7-14.6); RDW-SD 43.7 fL; WBC 8.06 10^3/uL (4.4-10.8)
[2023-05-20 15:00] LABS: ALT 34 U/L (14-59); AST 32 U/L (15-37); Alkaline Phosphatase 74 U/L (46-116); Anion Gap 6.8 mmol/L (3-11); BUN 12 mg/dL (7-18); Bilirubin, Total 0.7 mg/dL (0.2-1.0); CO2 29.2 mmol/L (21.0-32.0); CREATININE 1.1 mg/dL (0.55-1.02); Chloride 102 mmol/L (98-107); Estimated GFR 59.71 (mL/min/1.73m2); Glucose 105 mg/dL (74-106); Potassium 3.9 mmol/L (3.5-5.1); Sodium 138 mmol/L (136-145); Total Protein 7.9 g/dL (6.4-8.2)
== END 2023-05-20 10:30 | disposition home or self-care (01) ==
LOC: NCHCN 10:29
PROVIDERS: PCP Nurse Practitioner Family; Visit Provider Nurse Practitioner Family
DX: L40.50 Arthropathic psoriasis, unspecified (principal)
CPT/HCPCS: 80053; 85025

== ENCOUNTER → 2023-06-03 02:35 | Outpatient (CLI) | payer BC, SELFPAY ==
--- OUTSIDE RECORDS SUMMARY | 2023-06-03 02:37 | XMS_ITS | Continuity of Care Document ---
Author Name Unknown Organization [facility] Amb[facility] Address [address] [place] [address] Care Team Providers Care Structural Architect Name Role Phone MAYKEL RODRÍGUEZ Primary Care Physician Encounter [facility] NBR [id number] Date(s): 05/26/23 - 05/26/23 [facility] [address] [place], [place] [address] Encounter Diagnosis Chronic vulvitis(Discharge Diagnosis) - 04/24/23 Discharge Disposition: Home or Self Care Attending Physician: Xander Alvarez MD Allergies, Adverse Reactions, Alerts Substance Reaction Severity Status aspirin itchy throat Hives Moderate Active Assessment and Plan Future Appointments Immunizations Given and Recorded Vaccine Date Status [...] g, 4 Refill(s), [facility] Start Date: 10/21/22 Stop [...] Refill(s) Start Date: 10/18/22 Status: Ordered oxybutynin 15 mg/24 hr oral tablet, extended release 15 mg = 1 tab, Oral, Daily, # 90 tab, 0 Refill(s) Start Date: 05/26/23 Status: Ordered oxybutynin 5 mg oral tablet [...] [Reference Range]: 1 Blood Pressure [90-140/60-90 mmHg] 136/8 2mmHg (05/26/23 3:13 PM) Mean Arterial Pressure, Cuff [70-110 mmH g] 100 mmHg (05/26/23 3:13 PM) Weight 74.0 kg (05/26/23 3:13 PM) Weight Measured (lbs) 163.142 lb (05/26/23 3:13 PM) Weight Dosing 74.000 kg (05/26/23 3:13 PM) [place] Body Weight Calculated 55.85 kg (05/26/23 3:13 PM) Height 163.83 cm (05/26/23 3:13 PM) Height/Length Measured (inches) 64.5 inc h (05/26/23 3:13 PM) BSA Measured 1.84 m2 (05/26/23 3:13 PM) Body Mass Index 27.57 kg/m2 (05/26/23 3:13 PM) Social History Social History Type Response Tobacco Never tobacco user T obacco Use:. Sex Female Patient Care team information Care Team Personnel Name: MAYKEL RODRÍGUEZ Position: No Access Member Role: Primary Care Physician Address: Address: [place] [address]- Care Team Related Persons Name: RODY HUI JR Address: Home [address] Name: SYLVESTER GARG
--- NOTE | 2023-06-03 10:17 | DI.MAMMO_ITS ---
Exam(s) MG MAMMO DIAGNOSTIC UNI EXAM: MAMMO DIAGNOSTIC UNI CLINICAL HISTORY: 6 MO F/U TO ABN MAMMO LT, R92.8 TECHNIQUE: Left cc and MLO mammogram images were performed according to the usual protocol [facility] computer analysis with CAD system, tomosynthesis and C-view imaging. COMPARISON: 2019 through 21 November 2022 FINDINGS: The breast is composed of scattered fibroglandular densities, Breast Density category B. No suspicious masses or suspicious microcalcifications are seen. No skin thickening or abnormal axillary lymph nodes are seen. IMPRESSION: BI-RADS Category 1, Negative mammogram Yearly screening mammography is recommended, due in 6 months. Breast Density - Category B, scattered fibroglandular densities. A negative radiographic report should not delay biopsy if a dominant or clinically suspicious mass is present. Up to ten percent of cancers are not identified on mammography. A negative report may reinforce clinical impression. Adenosis and dense breasts may obscure an underlying neoplasm. False positive reports average 6 to 10%. Patient will receive a letter notifying them of these results.
== END ==
PROVIDERS: PCP Nurse Practitioner Family; Visit Provider Nurse Practitioner Family
DX: Z12.31 Encounter for screening mammogram for malignant neoplasm of breast (principal); R92.0 Mammographic microcalcification found on diagnostic imaging of breast
CPT/HCPCS: 77061; 77065; G0279

== ENCOUNTER 2023-08-20 15:26 | Outpatient (REF) | payer BC, SELFPAY ==
[2023-08-20 20:57] LABS: HCT 45.2 % (36.0-46.0); HGB 15.5 g/dL (11.2-15.7); MCH 32.9 pg (27.0-33.0); MCHC 34.3 % (32.0-36.0); MCV 96 fL (80-95); Platelet Count 259 10^3/uL (130-400); RBC 4.71 10^6/uL (3.93-5.22); RDW 11.9 % (11.7-14.6); WBC 6.94 10^3/uL (4.4-10.8)
[2023-08-20 21:17] LABS: ALT 38 U/L (14-59); AST 31 U/L (15-37); Albumin 4.3 g/dL (3.4-5.0); Alkaline Phosphatase 97 U/L (46-116); Anion Gap 9.3 mmol/L (3-11); BUN 22 mg/dL (7-18); Bilirubin, Total 0.9 mg/dL (0.2-1.0); CO2 29.7 mmol/L (21.0-32.0); CREATININE 0.9 mg/dL (0.55-1.02); Calcium 9.1 mg/dL (8.5-10.1); Chloride 102 mmol/L (98-107); Glucose 95 mg/dL (74-106); Potassium 4.3 mmol/L (3.5-5.1); Sodium 141 mmol/L (136-145); Total Protein 7.6 g/dL (6.4-8.2)
== END 2023-08-20 15:27 | disposition home or self-care (01) ==
LOC: NCHCN 15:26
PROVIDERS: PCP Nurse Practitioner Family; Visit Provider Nurse Practitioner Family
DX: I10 Essential (primary) hypertension (principal)
CPT/HCPCS: 80053; 85027

== ENCOUNTER 2023-11-13 16:57 | Outpatient (REF) | payer BC, SELFPAY ==
--- OUTSIDE RECORDS SUMMARY | 2023-11-13 17:00 | XMS_ITS | Encounter Summary ---
Author Organization [facility] Address [address] [place] [address] Care Team Providers Care Airport Operations Manager Name Role Phone Kayleigh Mallory WILFREDO Primary Care Provider Encounter Details Date Type Department Care Team (Latest Contact Info) Description 09/15/2023 Specialty Pharmacy [facility] [address] [place] [address] [phone] Matthew Kapadia [facility] Refill Coordination Outreach for Rheumatology Social History Tobacco Use Types Packs/Day Years Used Date Smoking Tobacco: Never Passive Smoke Exposure: Never Smokeless Tobacco: Never Alcohol Use Standard Drinks/Week Comments Yes 0 (1 standard drink = 0.6 oz pur e alcohol) About 2 beers a month if that Interpersonal Safety Answer Date Record ed Physically Hurt Never 11/28/2019 Verbally Threaten Not on file 11/28/2019 Sex and Gender Information Value Date Recorded Sex Assigned at Female 06/29/2019 10:58 EST Gender Identity Female 06/29/2019 10:58 EST Sexual Orientation Straight 06/29/2019 10 :58 EST documented as of this encounter Functional Status Functional Status Response Date of Assess ment Because of a physical, menta l, or emotional condition, does this person have difficulty doing errands alone such as visiting a doctor's office or shopping? No 02/02/2018 Cognitive Status Response Date of Assessm ent Because of a physical, menta l, or emotional condition, does this person have serious difficulty concentrating, remembering, or making decisions? No 02/02/2018 documented as of this encounter Plan of Treatment Upcoming Encounters Date Type Department Care Team (Late st Contact Info) Description 11/24/2023 10:00 EDT Telemedicine [facility] Rheumatology & Immunology - [facility] [address] [place], [place] [address] Harsh Malloy, ELBERT 111 [facility], [address] [place] [phone] documented as of this encounter Visit Diagnoses Not on filedocumented in this encounter Care Teams Airport Operations Manager Relationship Specialty Start Date End Date Kayleigh Mallory FNP 26 [facility] [address] [place] [phone] PCP - General 02/04/19 documented as of this encounter
--- OUTSIDE RECORDS SUMMARY | 2023-11-13 17:00 | XMS_ITS | Encounter Summary ---
Author Organization [facility] Address [address] [place] [address] Care Team Providers Care Advertising Rep Name Role Phone Kayleigh Mallory WILFREDO Primary Care Provider [phone] Encounter Details Date Type Department Care Team (Latest Contact Info) Description 10/14/2023 Specialty Pharmacy [facility] [address] [place] [address] [phone] Matthew Kapadia [facility] Refill Coordination Outreach for Rheumatology Social History [...] Contact Info) Description 11/24/2023 10:00 EDT Telemedicine [facility] Rheumatology & Immunology - [facility] [address] [place], [place] [address] Harsh Malloy, ELBERT 111 [facility], [address] [place] [phone] documented as of this encounter Visit Diagnoses Not on filedocumented in this encounter Care Teams Advertising Rep Relationship Specialty Start Date End Date Kayleigh Mallory FNP 26 [facility] [address] [place] [phone] PCP - General 02/04/19 documented as of this encounter
--- OUTSIDE RECORDS SUMMARY | 2023-11-13 17:00 | XMS_ITS | Encounter Summary ---
Author Organization [facility] Address [address] [place] [address] Care Team Providers Care Program Medical Director Name Role Phone Kayleigh Mallory WILFREDO Primary Care Provider [phone] Encounter Details Date Type Department Care Team (Latest Contact Info) Description 08/18/2023 Specialty Pharmacy [facility] [address] [place] [address] [phone] Matthew [address] [facility] Refill Coordination Outreach for Rheumatology Social [...] No 02/02/2018 documented as of this encounter Progress Notes * Joanne Lilly - 08/18/2023 1028 EDT Specialty Pharmacy Documentation Medication: Humira Clinic: Rheum Reason for Encounter: outreach Notes: Refill requested Follow up date: 08/18 Follow up reason: outreach documented in this encounter Plan of Treatment Upcoming Encounters Date Type Department Care Team (Late st Contact Info) Description 11/24/2023 10:00 EDT Telemedicine [facility] Rheumatology & Immunology - [facility] [address] [place], [place] [address] Harsh Malloy, WARD SERVICE SUPERVISOR 111 [facility], [address] [place] [phone] documented as of this encounter Visit Diagnoses Not on filedocumented in this encounter Care Teams Program Medical Director Relationship Specialty Start Date End Date Kayleigh Mallory FNP 26 [facility] [address] [place] [address] PCP - General 02/04/19 documented as of this encounter
--- OUTSIDE RECORDS SUMMARY | 2023-11-13 17:00 | XMS_ITS | Encounter Summary ---
Author Organization [facility] Address [address] [place] [address] Care Team Providers Care Steamer Gum Candy Name Role Phone Kayleigh Mallory WILFREDO Primary Care Provider [phone] Encounter Details Date Type Department Care Team (Latest Contact Info) Description 04/29/2023 Specialty Pharmacy [facility] [address] [place], [place] [phone] Matthew Kapadia [facility] Refill Coordination Outreach for Rheumatology Social History Tobacco Use Types Packs/Day Years Used Date Smoking Tobacco: Never Smokeless Tobacco: Never Alcohol Use Standard [...] Contact Info) Description 11/24/2023 10:00 EDT Telemedicine [facility] Rheumatology & Immunology - [address] [address]56[address] Harsh Malloy, RAILROAD WORKER 111 [facility], [address] [place] [phone] documented as of this encounter Visit Diagnoses Not on filedocumented in this encounter Care Teams Steamer Gum Candy Relationship Specialty Start Date End Date Kayleigh Mallory FNP 26 [facility] [address] [place] [address] PCP - General 02/04/19 documented as of this encounter
--- OUTSIDE RECORDS SUMMARY | 2023-11-13 17:00 | XMS_ITS | Encounter Summary ---
Author Organization [facility] Address [address] [place] [address] Care Team Providers Care Cardiology Teacher Name Role Phone Kayleigh Mallory WILFREDO Primary Care Provider [phone] Encounter Details Date Type Department Care Team (Latest Contact Info) Description 07/17/2023 Specialty Pharmacy [facility] [address] [place] [phone] Dexter Byers [facility] Refill Coordination Outreach for Rheumatology Social History [...] Contact Info) Description 11/24/2023 10:00 EDT Telemedicine [facility] Rheumatology & Immunology - [facility] [address] [place], [place] [address] Harsh Malloy, ELBERT 111 [facility], [address] [place] [phone] documented as of this encounter Visit Diagnoses Not on filedocumented in this encounter Care Teams Cardiology Teacher Relationship Specialty Start Date End Date Kayleigh Mallory FNP 26 [facility] [address] [place] [phone] PCP - General 02/04/19 documented as of this encounter
--- OUTSIDE RECORDS SUMMARY | 2023-11-13 17:00 | XMS_ITS | Encounter Summary ---
Author Organization [facility] Address [address] [place] [address] Care Team Providers Care Online Retailer Name Role Phone Kayleigh Mallory WILFREDO Primary Care Provider [phone] Reason for Visit * Reason Onset Date Comments Medications Refill 08/18/2023 Encounter Details Date Type Department Care Team (Late st Contact Info) Description 08/18/2023 Telephone [facility] Rheumatology & Immunology - [facility] [address] [place], [place] [phone] Harsh Malloy, RETAIL STOCKER 111 [facility] [address] [place] [address] Medications Refill Social History Tobacco Use Types Packs/Day Years [...] No 02/02/2018 documented as of this encounter Ordered Prescriptions Prescription Sig Dispensed Refills Start Date End Da te adalimumab (HUMIRA,CF, PEN) 40 mg/0.4 mL penIndications:Psoriatic arthropathy ([facility]) Inject 0.4 mL into the skin every 14 days. Specialty. 6 Kit 1 08/18/2023 documented in this encounter Progress Notes * Dexter Byers [facility] - 08/18/2023 1327 EDT Specialty Medication Refill Request Requested Medication: Humira 40 mg/0.4 ml pen into the skin every 14 days Indication: PsA A chart review of last visit, labs, and medication list has been reviewed and it has been identified this therapy should be continued. New refills have been sent in to [facility] per protocol. Dexter Byers PharmD (he/him) Ambulatory Pharmacist Clinician Rheumatology 08/18/2023 documented in this encounter Miscellaneous Notes * Telephone Encounter - Lilly Rubio - 08/18/2023 1028 EDT Medication Refill Request Medication: Humira Patient needs medication by: 08/24 Scheduled outreach date: 08/14 Pharmacy: [facility] ([facility]) [address] Next appt: 11/24/2023 documented in this encounter Plan of Treatment Upcoming Encounters Date Type Department Care Team (Late st Contact Info) Description 11/24/2023 10:00 EDT Telemedicine [facility] Rheumatology & Immunology - [address] [address] Harsh Malloy, RETAIL STOCKER 111 [facility], [address] [place] [phone] documented as of this encounter Visit Diagnoses Diagnosis Psoriatic arthropathy ([facility]) Psoriatic arthropathy documented in this encounter Discontinued Medications Medication Sig Discontinue Reason Start Date End Da te adalimumab (HUMIRA,CF, PEN) 40 mg/0.4 mL penIndications:Psoriatic arthropathy ([facility]) Inject 0.4 mL into the skin every 14 days. Specialty. Reorder 02/24/2023 08/18/2023 documented as of this encounter Care Teams Online Retailer Relationship Specialty Start Date End Date Kayleigh Mallory FNP [address] [place] [phone] PCP - General 02/04/19 documented as of this encounter
--- OUTSIDE RECORDS SUMMARY | 2023-11-13 17:00 | XMS_ITS | Continuity of Care Document ---
Author Organization [facility] Address [address] [place] [address] Care Team Providers Care Senior Health Physics Technician Name Role Phone MAYKEL RODRÍGUEZ Primary Care Physician [phone] [facility] NBR [id number] Date(s): 09/15/23 - 09/15/23 [facility] [address] [place] [address]- Discharge Disposition: Home Allergies, Adverse Reactions, Alerts Substance Reaction Severity [...] 0.1 mg/g vaginal cream 1 g, VAG, Fri/Fri/Fri, # 42.5 g, 4 Refill(s), Pharmacy: [facility] ([facility] ) Start Date: 10/21/22 Stop [...] 0 Refill(s) Start Date: 10/18/22 Status: Ordered mirabegron 50 mg oral tablet, extended release 50 mg = 1 tab, Oral, Daily, do not crush or chew, # 90 tab, 4 Refill(s), Pharmacy: [facility], 163.83, cm, 05/26/23 15:13:00 EST, Height, 74, kg, 05/26/23 15:21:00 EST, Weight Dosing Start Date: 09/15/23 Stop Date: 12/08/24 Status: Ordered multivitamin adult, oral tablet 1 [...] anal fissures Confirmed Active Hypertension Confirmed Active Mixed incontinence Confirmed Active Psoriasis Confirmed Active Psoriatic arthritis Confirmed Active Procedures Procedure Date Related Diagnosis Body Site Status Anterior and posterior repair 06/07/21 Completed Colonoscopy 03/25/21 Completed Anal sphincterotomy 2019 Compl eted Arthroscopic knee procedure Completed Bilateral tubal ligation Completed Social History Social History Type Response Tobacco Never tobacco user T obacco Use:. Sex Female Patient Care team information Care Team Personnel Name: MAYKEL RODRÍGUEZ Position: No Access Member Role: Primary Care Physician Address: Address: [address] [address]- Care Team Related Persons Name: RODY HUI JR Address: Home [address] [place], [place] [address] Name: SYLVESTER GARG
--- OUTSIDE RECORDS SUMMARY | 2023-11-13 17:00 | XMS_ITS | Encounter Summary ---
Author Organization [facility] Address [address] [place] [address] Care Team Providers Care Drill Press Set Up Operator Radial Name Role Phone Kayleigh Mallory WILFREDO Primary Care Provider [phone] Reason for Visit * Reason Comments Medications Refill Encounter Details Date Type Department Care Team (Late st Contact Info) Description 05/26/2023 Refill [facility] Rheumatology & Immunology - [facility] [address] [place], [place] [address] Harsh Malloy, SOFTWARE CONFIGURATION SPECIALIST 111 [facility], [address] [place] [address] Medications Refill Social History Tobacco [...] Dispensed Refills Start Date End Da te methotrexate 2.5 mg tablet Take 10 Tablets by mouth once a week. Get labs every 3-4 months. 130 Tablet 1 05/27/2023 documented in this encounter Miscellaneous Notes * Telephone Encounter - Nicole Montero RN - 05/27/2023 1713 EST MTX refill was [facility] to [facility] on 03/21/23 for 12 weeks and 1 RF. Spoke with [facility]. They dispensed 130 tabs, rather than 120 tabs to maximize member benefit. They said this is for 90 days, but it it is actually 91 days. The pharmacist said that after they verify the prescription as written, it get processed exactly how it was prescribed, then the system automatically adjusts the quantity according to what insurance will allow, and it does this by taking from the refill, leaving the refill at a partial quantity. Sending new MTX script for 13 weeks and 1 RF. Labs 05/20/23: Creatinine 1.1, up from 0.8 AST 32, up from 17 ALT 34, up from 20 documented in this encounter Plan of Treatment Upcoming Encounters Date Type Department Care Team (Late st Contact Info) Description 11/24/2023 10:00 EDT Telemedicine [facility] Rheumatology & Immunology - [facility] [address] [place], [place] [address] Harsh Malloy NP 111 [facility], [address] [place] [address] documented as of this encounter Visit Diagnoses Not on filedocumented in this encounter Discontinued Medications Medication Sig Discontinue Reason Start Date End Da te methotrexate 2.5 mg tablet TAKE 10 TABLETS BY MOUTH WEEKLY LABS ARE NEEDED EVERY 3 MONTHS 03/21/2023 05/27/2023 documented as of this encounter Care Teams Drill Press Set Up Operator Radial Relationship Specialty Start Date End Date Kayleigh Mallory FNP 26 [facility] [address] [place] [phone] PCP - General 02/04/19 documented as of this encounter
--- OUTSIDE RECORDS SUMMARY | 2023-11-13 17:00 | XMS_ITS | Encounter Summary ---
Author Organization [facility] Address [address] [place] [address] Care Team Providers Care Field Coil Winder Name Role Phone Kayleigh Mallory WILFREDO Primary Care Provider [phone] Reason for Visit * Reason Comments Medications Refill Encounter Details Date Type Department Care Team (Late st Contact Info) Description 05/25/2023 Refill [facility] Rheumatology & Immunology - [address] [phone] Price Flores MD [address] [place] [address], [address] [place] [address] Medications Refill Social History Tobacco [...] Dispensed Refills Start Date End Da te folic acid (FOLVITE) 1 mg tablet TAKE 1 TABLET BY MOUTH DAILY 90 Tablet 3 05/26/2023 documented in this encounter Plan of Treatment Upcoming Encounters Date Type Department Care Team (Late st Contact Info) Description 11/24/2023 10:00 EDT Telemedicine [facility] Rheumatology & Immunology - [address] [address] Harsh Malloy, AIR ANALYSIS ENGINEERING TECHNICIAN 111 [facility], [address] [place] [address] documented as of this encounter Visit Diagnoses Not on filedocumented in this encounter Discontinued Medications Medication Sig Discontinue Reason Start Date End Da te folic acid (FOLVITE) 1 mg tablet TAKE 1 TABLET BY MOUTH DAILY 09/09/2022 05/26/2023 documented as of this encounter Care Teams Field Coil Winder Relationship Specialty Start Date End Date Kayleigh Mallory FNP 26 [facility] [address] [place] [address] PCP - General 02/04/19 documented as of this encounter
--- OUTSIDE RECORDS SUMMARY | 2023-11-13 17:00 | XMS_ITS | Encounter Summary ---
Author Organization [facility] Address [address] [place] [address] Care Team Providers Care Resistor Testing Machine Operator Name Role Phone Kayleigh Mallory WILFREDO Primary Care Provider [phone] Encounter Details Date Type Department Care Team (Latest Contact Info) Description 11/11/2023 Specialty Pharmacy [facility] [address] [place] [phone] Matthew Kapadia [facility] Refill Coordination Outreach for Rheumatology [...] Contact Info) Description 11/24/2023 10:00 EDT Telemedicine [facility] Rheumatology & Immunology - [facility] [address] [place], [place] [address] Harsh Malloy, ELBERT 111 [facility], [address] [place] [phone] documented as of this encounter Visit Diagnoses Not on filedocumented in this encounter Care Teams Resistor Testing Machine Operator Relationship Specialty Start Date End Date Kayleigh Mallory FNP 26 [facility] [address] [place] [phone] PCP - General 02/04/19 documented as of this encounter
--- OUTSIDE RECORDS SUMMARY | 2023-11-13 17:00 | XMS_ITS | Encounter Summary ---
Author Organization [facility] Address [address] [place] [address] Care Team Providers Care Hr Generalist Name Role Phone Kayleigh Mallory WILFREDO Primary Care Provider [phone] Encounter Details Date Type Department Care Team (Latest Contact Info) Description 05/23/2023 Specialty Pharmacy [facility] [address] [place] [phone] Matthew Kapadia [facility] Refill Coordination Outreach for Rheumatology, Clinical Follow-up (2x annually) for Rheumatology Social History Tobacco Use Types [...] Contact Info) Description 11/24/2023 10:00 EDT Telemedicine [facility] Rheumatology & Immunology - [address] [address] Harsh Malloy, R&D ENGINEER 111 [facility], [address] [place] [phone] documented as of this encounter Visit Diagnoses Not on filedocumented in this encounter Care Teams Hr Generalist Relationship Specialty Start Date End Date Kayleigh Mallory FNP 26 [facility] [address] [place] [address] PCP - General 02/04/19 documented as of this encounter
--- OUTSIDE RECORDS SUMMARY | 2023-11-13 17:00 | XMS_ITS | Referral Summary ---
Author Organization Health system Address [address] [place] [address] Care Team Providers Care Nursing Care Attendant Name Role Phone Kayleigh Mallory WILFREDO Primary Care Provider [phone] Encounters Date Type Department Care Team Description 11/11/2023 Specialty Pharmacy [facility] [address] [place] [address] [phone] Matthew Kapadia [facility] Refill Coordination Outreach for Rheumatology 10/14/2023 Specialty Pharmacy [facility] [address] [place] [address] [phone] Matthew Kapadia [facility] Refill Coordination Outreach for Rheumatology 09/15/2023 Specialty Pharmacy [facility] [address] [place] [address] [phone] Matthew Kapadia [facility] Refill Coordination Outreach for Rheumatology 08/18/2023 Telephone [facility] Rheumatology & Immunology - [facility] [address] [place], [place] [address] Harsh Malloy NP Medications Refill 08/18/2023 Specialty Pharmacy [facility] [address] [place] [address] [phone] Matthew Kapadia [facility] Refill Coordination Outreach for Rheumatology from Last 3 Months Allergies Active Allergy Reactions Criticality Noted Date Comments Aspirin Hives 10/24/2010 Medications Medication Sig Dispensed Refills Start Date End Date Status acetaminophen (TYLENOL) 500 mg tablet Take 2 Tablets by mouth every 6 hours as needed. Active loratadine-pseudoep hedrine (CLARITIN-D 24-HOUR) 10-240 mg per tablet Take 1 Tablet by mouth daily as needed. Reported on 04/17/2016 Active Multivitamins with Minerals Tab Take 1 Tablet by mouth daily. Active cetirizine (ZYRTEC) 10 mg tablet Take 1 Tablet by mouth daily. Active FLUTICASONE PROPIONATE (FLUTICASONE INHL) Inhale as directed daily. Active montelukast (SINGULAIR) 10 mg tablet Take 1 Tablet by mouth daily. Active lisinopril (PRINIVIL, ZESTRIL) 10 mg tablet Take 1 Tablet by mouth daily. Active oxybutynin (DITROPAN) 5 mg tablet Take 1 Tablet by mouth daily. Active fluocinonide (LIDEX) 0.05 % ointment Apply daily to rash if needed 1 Tube 3 05/07/2017 Active Additional Information Patient not taking.Reported on 03/11/2023 DOCUSATE SODIUM (COLACE ORAL)Indications:Ne ed for pneumococcal vaccination,Psoriat ic arthropathy ([facility]),Encounter for long-term (current) use of medications,Hammer toes of both feet,Psoriasis with arthropathy ([facility]) Take by mouth. Active psyllium husk, with sugar, (METAMUCIL, WITH SUGAR,) 3.4 gram packetIndications:c onstipation Take 2 Packets by mouth daily. Active estradioL (ESTRACE) 0.01 % (0.1 mg/gram) vaginal cream Place 1 g vaginally three times a week. Mon, Wed, Fri 01/02/2023 Active halobetasol (ULTRAVATE) 0.05 % ointment Apply topically daily. As needed for vaginal skin irritation per OBGYN 04/23/2022 Active folic acid (FOLVITE) 1 mg tablet TAKE 1 TABLET BY MOUTH DAILY 90 Tablet 3 05/26/2023 Active methotrexate 2.5 mg tablet Take 10 Tablets by mouth once a week. Get labs every 3-4 months. 130 Tablet 1 05/27/2023 Active adalimumab (HUMIRA,CF, PEN) 40 mg/0.4 mL penIndications:Psor iatic arthropathy ([facility]) Inject 0.4 mL into the skin every 14 days. Specialty. 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 5 ml IM (6 mos+) 02/08/2020,02/05/2019 PPD Skin Test Placement 07/08/2012 Pneumococcal Conjugate Vacci ne 13-Valent (PCV13) (PREVNAR-13) 0.5 mL IM (6 wks+) 05/14/2017 Pneumococcal Conjugate Vacci ne 20-Valent (PCV20) (PREVNAR-20) 0.5 mL IM (6 wks+) 02/28/2022 Pneumococcal Polysaccharide (PPSV23) Vaccine (PNEUMOVAX-23) =>2YO SQ/IM 02/02/2018 Shingrix (Zoster Vaccine, Recombinant) IM 06/01/2019,02/11/2019 Td 11/13/2022 Social History Tobacco Use Types Packs/Day Years [...] Sexual Orientation Straight 06/29/2019 10 :58 EST Last Filed Vital Signs Vital Sign Reading Time Taken Comments Blood Pressure 144/86 05/22/2023 1354 EST Pulse 72 05/22/2023 1354 EST Temperature 36.6 ??C (97.9 ??F) 05/22/2023 1354 EST Respiratory Rate 16 03/01/2021 1000 EDT Oxygen Saturation - - Inhaled Oxygen Concentration - - Weight 74.4 kg (164 lb) 05/22/2023 1354 EST Height 164 cm (5' 4.57) 05/22/2023 1354 EST Body Mass Index 27.66 05/22/2023 1354 EST Functional Status Functional Status Response Date of [...] concentrating, remembering, or making decisions? No 02/02/2018 Plan of Treatment Upcoming Encounters Date Type Department Care Team (Late st Contact Info) Description 11/24/2023 10:00 EDT Telemedicine [facility] Rheumatology & Immunology - [address] [phone] Harsh Malloy NP [address] [place] [address], [address] [place] [address] Procedures Procedure Name Priority Date/Time Associated Diagnosis Comments HEPATITIS C AB W REFLEX TO HCV RNA BY PCR Routine 02/28/2022 11:36 EDT Psoriasis with arthropathy (HCC-CMS) Long-term use of high-risk medication from Last 3 Months or Most Recently Relevant to Health Maintenance Results * HEPATITIS C AB W REFLEX TO HCV RNA BY PCR (02/28/2022 11:36 EDT) Hep C Antibody Negative Negative 02/28/2022 16:05 EDT [facility] Blood VENOUS BLOOD / Unknown Venipuncture / Unknown 02/28/2022 11:36 EDT 02/28/2022 12:17 EDT Harsh Malloy NP CHEMISTRY & BLOOD G ORDERABLES [facility] [address] [place] [address] from Last 3 Months or Most Recently Relevant to Health Maintenance Care Teams Nursing Care Attendant Relationship Specialty Start Date End Date Kayleigh Mallory FNP [address] [phone] [facility] - General 02/04/19
--- OUTSIDE RECORDS SUMMARY | 2023-11-13 17:00 | XMS_ITS | Encounter Summary ---
Author Organization [facility] Address [address] [place] [address] Care Team Providers Care Competency Evaluated Nurse Aide Name Role Phone Kayleigh Mallory WILFREDO Primary Care Provider [phone] Reason for Referral * Laboratory Services (Routine/Next Available) - New Request Specialty Diagnoses / Procedures Referred By Twyla love Referred To Contact Diagnoses Psoriatic arthropathy ([facility]) Encounter for long-term (current) use of medications Procedures COMPREHENSIVE METABOLIC PANEL (CMP) Harsh Malloy NP [address] [address] Referral ID Status Reason Start Date Expiration Date V isits Requested Visits Authorized [id number] New Request 05/22/2023 1 1 * Laboratory Services (Routine/Next Available) - New Request Specialty Diagnoses / Procedures Referred By Twyla love Referred To Contact Diagnoses Psoriatic arthropathy ([facility]) Encounter for long-term (current) use of medications Procedures COMPLETE BLOOD COUNT AND DIFFERENTIAL Harsh Malloy NP [address] [address] Referral ID Status Reason Start Date Expiration Date V isits Requested Visits Authorized [id number] New Request 05/22/2023 1 1 Reason for Visit * Reason Comments Follow-up Encounter Details Date Type Department Care Team (Late st Contact Info) Description 05/22/2023 14:00 EST Office Visit [facility] Rheumatology & Immunology - [address] [phone] Harsh Malloy, STRIPPER CUTTER MACHINE [address] [facility], [address] [place] [address] Psoriatic arthropathy (HCC-CMS) (Primary Dx); Encounter for long-term (current) use of medications Social History Tobacco Use Types Packs/Day Years [...] :58 EST documented as of this encounter Last Filed Vital Signs Vital Sign Reading Time Taken Comments Blood Pressure 144/86 05/22/2023 1354 EST Pulse 72 05/22/2023 1354 EST Temperature 36.6 ??C (97.9 ??F) 05/22/2023 1354 EST Respiratory Rate - - Oxygen Saturation - - Inhaled Oxygen Concentration - - Weight 74.4 kg (164 lb) 05/22/2023 1354 EST Height 164 cm (5' 4.57) 05/22/2023 1354 EST Body Mass Index 27.66 05/22/2023 1354 EST documented in this encounter Functional Status [...] No 02/02/2018 documented as of this encounter Patient Instructions * Patient Instructions* Harsh Malloy NP - 05/22/2023 14:00 EST Continue current meds. Labs every 3-4 months Check with pharmacy if you have monovariant covid - if you need one, hold methotrexate 1 week afterand restart documented in this encounter Progress Notes * Harsh Malloy NP - 05/22/2023 1400 EST Images from the original note were not included. Patient ID: Nina Boothe is a 52 y.o. y.o. female Subjective: Chief Complaint: Follow-up HPI: Here for follow up of psoriatic arthritis on humira and methotrexate. 01/13/2018 Sphyncerotomy No specialty comments available. REVIEW OF SYSTEMS: Yes No Yes No Fever X Joint pain X Weight gain or loss pounds (lbs) Duration of AM joint stiffness hours / min Eye pain or dryness X Numbness/tingling X Mouth or nose sores X Heart burn / Nausea X Chest pain X Diarrhea X Shortness of Breath X Blood in stool X Cough X X Burning on urination X Skin rash X Hand/Foot color change in cold X Cough since - saw PCP who did not hear any issues with her lungs, said it is improvingand if not resolved in next 2 weeks. 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[facility]) History of COVID-19 Allergies Allergen Reactions Asa [Aspirin] Hives Current Outpatient Medications Medication acetaminophen (TYLENOL) 500 mg tablet adalimumab (HUMIRA,CF, PEN) 40 mg/0.4 mL pen cetirizine (ZYRTEC) 10 mg tablet DOCUSATE SODIUM (COLACE ORAL) estradioL (ESTRACE) 0.01 % (0.1 mg/gram) vaginal cream fluocinonide (LIDEX) 0.05 % ointment FLUTICASONE PROPIONATE (FLUTICASONE INHL) folic acid (FOLVITE) 1 mg tablet halobetasol (ULTRAVATE) 0.05 % ointment lisinopril (PRINIVIL, ZESTRIL) 10 mg tablet loratadine-pseudoephedrine (CLARITIN-D 24-HOUR) 10-240 mg per tablet methotrexate 2.5 mg tablet montelukast (SINGULAIR) 10 mg tablet Multivitamins with Minerals Tab oxybutynin (DITROPAN) 5 mg tablet psyllium husk, with sugar, (METAMUCIL, WITH SUGAR,) 3.4 gram packet No current facility-administered medications for this visit. Objective: BP (!) 144/86 (BP Cuff Location: Right arm, BP Patient Position: Sitting, BP Cuff Sizes: Adult, regular) Pulse 72 Temp 36.6 ??C (97.9 ??F) Ht 164 cm (64.57) Wt 74.4 kg (164 lb) BMI 27.66 kg/m?? PHYSICAL EXAM: General: No acute distress. Alert, fully oriented, pleasant, conversant. HEENT: Conjunctivae/corneas clear. Pupils equal, Sclerae anicteric. Mucus membranes moist; oropharynx clear. Neck supple anterior lymphadenopathy , symmetrical, trachea midline Lungs: Clear to auscultation bilaterally. Heart: Regular rate and rhythm, S1, S2 present, no murmur Abdomen: Soft, non-tender, non-distended. Extremities: Extremities without cyanosis or edema. Skin: clear Musculoskeletal: Spine: No significant tenderness. Normal range of motion of the spine. Shoulder/Elbow: No significant tenderness, swelling, effusions, erythema or warmth is present. Appropriate range of motion present. Wrist/Hand: No significant tenderness, swelling, effusions, erythema or warmth is present. Appropriate range of motion present. Hips/Knee: No significant tenderness, or erythema or warmth is present. Appropriate range of motionpresent. Ankle/Foot: pes planus bilaterally, bony hypertrophy bilateral anklDrsions, erythema or warmth is present. Appropriate range of motion present. LABS: Lab Results Component Value Date WBC 7.00 08/28/2021 HGB 14.2 08/28/2021 HCT 41.4 08/28/2021 MCV 92 08/28/2021 PLT 265 08/28/2021 Lab Results Component Value Date BUN 18 08/28/2021 CREATININE 0.84 08/28/2021 AST 29 08/28/2021 ALT 14 08/28/2021 Lab Results Component Value Date SEDRATE 4 07/08/2012 No results found for: RF, PARKER, DSDNA, SM, C3, C4, FACILITY MAINTENANCE MECHANIC No components found for: UPROT U/A: No results found for: CLARITYU, LABSPEC, PHUR, GLUCOSEU, BILIRUBINUR, KETONES, BLOODU, PROTEINUA Lipid Profile: No results found for: CHOL, TRIG, HDL, LDLBASE, CHOLHDL RAPID3 Summary Functional Status: 0 Pain Tolerance: 1 Global Estimate: 1 Score: 2 Interpretation: Near Remission ASSESSMENT/PLAN: Encounter Diagnoses Name Primary? Psoriatic arthropathy ([facility]) Yes Encounter for long-term (current) use of medications 1. 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 Doing well on MTX 25mg po weekly and humira, no joint activity . 2. No psoriasis 3. Up to date on pneumonia, shingrix 4. Up to date on labs Labs every 3-4 months 5. Completed covid vaccine - pfizer 1-4 Pneumonia 13, pneumonia 23 and shingrix 6 pes planus - recommend arch supports Patient Instructions Continue current meds. Labs every 3-4 months Check with pharmacy if you have monovariant covid - if you need one, hold methotrexate 1 week afterand restart No follow-ups on file. Patient verbalizes understanding and agrees with plan Yes I was directly supervised by: Dr. Gray. They were present in clinic and available for consult if needed. I spent a total of 30 minutes on the date of this encounter meeting with the patient and reviewing documentation/coordinating care as described in the above note. No procedures were performed at the time of the visit. Harsh Malloy NP 05/22/2023 documented in this encounter Plan of Treatment Upcoming Encounters Date Type Department Care Team (Late st Contact Info) Description 11/24/2023 10:00 EDT Telemedicine [facility] Rheumatology & Immunology - [address] [address] Harsh Malloy NP [address] [place] [address], [address] [place] [address] Scheduled Orders Name Type Priority Associated Diagnoses Orde r Schedule COMPLETE BLOOD COUNT AND DIFFERENTIAL Lab Routine Psoriatic arthropathy ([facility]) Encounter for long-term (current) use of medications Every 12-Weeks for 4 Occurrences starting 05/22/2023 until 05/21/2024 COMPREHENSIVE METABOLIC PANEL (CMP) Lab Routine Psoriatic arthropathy ([facility]) Encounter for long-term (current) use of medications Every 12-Weeks for 4 Occurrences starting 05/22/2023 until 05/21/2024 documented as of this encounter Visit Diagnoses Diagnosis Psoriatic arthropathy ([facility] Primary Psoriatic arthropathy Encounter for long-term (current) use of medications Encounter for long-term (current) use of other medications documented in this encounter Care Teams Competency Evaluated Nurse Aide Relationship Specialty Start Date End Date Kayleigh Mallory FNP [address] [facility] [address] [place] [phone] PCP - General 02/04/19 documented as of this encounter
--- OUTSIDE RECORDS SUMMARY | 2023-11-13 17:00 | XMS_ITS | Encounter Summary ---
Author Organization [facility] Address [address] [place] [address] Care Team Providers Care Cage Unloader Name Role Phone Kayleigh Mallory WILFREDO Primary Care Provider [phone] Encounter Details Date Type Department Care Team (Latest Contact Info) Description 06/20/2023 Specialty Pharmacy [facility] [address] [place] [phone] Matthew Kapadia [facility] Refill Coordination Outreach for Rheumatology Social History [...] Contact Info) Description 11/24/2023 10:00 EDT Telemedicine [facility] Rheumatology & Immunology - [facility] [address] [place], [place] [phone] Harsh Malloy, ELBERT 111 [facility], [address] [place] [phone] documented as of this encounter Visit Diagnoses Not on filedocumented in this encounter Care Teams Cage Unloader Relationship Specialty Start Date End Date Kayleigh Mallory FNP [address] [facility] [address] [place] [phone] PCP - General 02/04/19 documented as of this encounter
--- OUTSIDE RECORDS SUMMARY | 2023-11-13 17:00 | XMS_ITS | Clinical Summary ---
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 Active psyllium husk, with [...] PEN) 40 mg/0.4 mL penIndications:Psor iatic arthropathy ([facility]) Inject 0.4 mL into the skin every 14 days. Specialty. 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) 10/24/2010 Encounters Date Type Department Care Team Description 11/11/2023 Specialty Pharmacy [facility] [address] [place] [address] Matthew Kapdaia RPH Refill Coordination Outreach for Rheumatology 10/14/2023 Specialty Pharmacy [facility] [address] [place] [address] Matthew Kapadia RPH Refill Coordination Outreach for Rheumatology 09/15/2023 Specialty Pharmacy [facility] [address] [place] [address] Matthew Kapadia RPH Refill Coordination Outreach for Rheumatology 08/18/[address] [facility] Rheumatology & Immunology - [address] [phone] Harsh Malloy NP Medications Refill 08/18/2023 Specialty Pharmacy [facility] [address] [place], [place] [phone] Matthew Kapadia, [facility] Refill Coordination Outreach for Rheumatology from Last 3 Months Immunizations Name Administration Dates Next Due Covid-19 mRNA Vaccine (PFIZE R COVID-19) PF 0.3 ml IM (12 yrs+) 02/11/2022,08/25/2021,01/30/2021,0306/2020,06/07/2020 07/27/2020 Covid-19 mRNA-LNP Bivalent V accine (Pathbrite BIVALENT VACCINE) PF 0.3 mL IM (12 [...] (Zoster Vaccine, Recombinant) IM 06/01/2019,02/11/2019 Td 11/13/2022 Surgical History Surgery Date Site/Laterality Comments TUBAL LIGATION TUBAL LIGATION KNEE ARTHROSCOPY bilateral knees Medical History Medical History Date Comments Allergy Psoriasis Migraine Abnormal Pap smear in remote pas t Hyperthyroidism history of this, now resolved Hypertension Arthritis Family History Medical History Relation Comments Heart Disease Father Psoriasis Mother Arthritis Paternal Grandmother Cancer Paternal Grandmother Arthritis Sister 1 psoriatic arthri tis on TNF alpha inhibitor Psoriasis Sister 2 Relation Status Comments Brother Alive Father Alive Maternal Aunt Alive Maternal Grandfather Maternal Grandmother Alive Maternal Uncle Mother Paternal Aunt Alive Paternal Grandfather Paternal Grandmother Paternal Uncle Sister 1 Alive Sister 2 Social History Tobacco Use Types Packs/Day Years [...] Sexual Orientation Straight 06/29/2019 10 :58 EST Obstetrics History Last Filed Vital Signs Vital Sign Reading [...] Body Mass Index 27.66 05/22/2023 1354 EST Plan of Treatment Upcoming Encounters Date Type Department Care Team (Late st Contact Info) Description 11/24/2023 10:[address] [facility] Rheumatology & Immunology - [address] [address] Harsh Malloy NP [address] [place] [address], [address] [place] [phone] Health Maintenance Due Date Last Done Comments Hepatitis B Vaccine (1 of 3 - 19+ 3-dose series) 08/04/1987 COVID-19 Vaccine (2022-2 4 season) 2022 10/11/2022, 02/11/2022, 08/25/2021, Additional history exists Hepatitis C Screen Completed 02/28/2022, 07/08/2012 Procedures Procedure Name Priority Date/Time Associated Diagnosis [...] C Antibody Negative Negative 02/28/2022 16:05 EDT [facility] Blood VENOUS BLOOD / Unknown Venipuncture / Unknown 02/28/2022 11:36 EDT 02/28/2022 12:17 EDT Harsh Malloy NP CHEMISTRY & BLOOD G ORDERABLES [facility] [address] [place] [phone] from Last 3 Months or Most Recently Relevant to Health Maintenance Care Teams Commercial Airplane Pilot Relationship Specialty Start Date End Date Kayleigh Mallory FNP [address] [facility] [address] [place] [phone] PCP - General 02/04/19
--- OUTSIDE RECORDS SUMMARY | 2023-11-13 17:01 | XMS_ITS | Encounter Summary ---
Author Organization [facility] Address [address] [place] [address] Care Team Providers Care Desk Attendant Name Role Phone Kayleigh Mallory WILFREDO Primary Care Provider [phone] Reason for Visit * Reason Onset Date Comments Prior Auth, Medication 02/03/2023 humira Encounter Details Date Type Department Care Team (Late st Contact Info) Description 02/03/2023 Telephone [facility] Rheumatology & Immunology - [address] [phone] Harsh Malloy, ELBERT [address] [facility], [address] [place] [address] Prior Auth, Medication (humira) Social History Tobacco Use Types Packs/Day Years [...] No 02/02/2018 Cognitive Status Response Date of Assess ent Because of a physical, menta l, or emotional condition, does this person have serious difficulty concentrating, remembering, or making decisions? No 02/02/2018 documented as of this encounter Miscellaneous Notes * Telephone Encounter - Kelsi Garrido - 02/03/2023 1608 EDT Prior Authorization Approval Medication: Humira 40mg/0.4ml q14d Insurance Name:[employer] Insurance Type: Commercial Approval Dates: 02/03/2023 - 02/04/2024 Authorization Number: [id number] Required Pharmacy: [facility] able to fill?: YES Additional Info/Other Notes: approval letter uploaded to scans Prior Authorization Submission Process - Routine Re-Auth Medication: Humira 40mg/0.4ml q14d Insurance: [employer] Insurance Type: Commercial Date PA Request Received: 02/03/2023 PA Submission Date: 02/03/2023 CMM: [id number] Notes: re-auth Submitted by: costa Phone: [phone] documented in this encounter Plan of Treatment Upcoming Encounters Date Type Department Care Team (Late st Contact Info) Description 11/24/2023 10:00 EDT Telemedicine [facility] Rheumatology & Immunology - [address] [phone] Harsh Malloy, BRAIDER OPERATOR [address] [facility], [address] [place] [phone] documented as of this encounter Visit Diagnoses Not on filedocumented in this encounter Care Teams Desk Attendant Relationship Specialty Start Date End Date Kayleigh Mallory FNP [address] [place] [address] [address] [place] [phone] PCP - General 02/04/19 documented as of this encounter
--- OUTSIDE RECORDS SUMMARY | 2023-11-13 17:01 | XMS_ITS | Encounter Summary ---
Author Organization [facility] Address [address] [place] [address] Care Team Providers Care Hematologist Name Role Phone Kayleigh Mallory WILFREDO Primary Care Provider [phone] Reason for Visit * Reason Comments Medications Refill Encounter Details Date Type Department Care Team (Late st Contact Info) Description 09/07/2022 Refill [facility] Rheumatology & Immunology - [facility] [address] [place], [place] [id number] Harsh Malloy, CARD PLACER [address] [facility], [address] [place] [address] Medications Refill Social History Tobacco [...] TABLET BY MOUTH DAILY 90 Tablet 3 09/09/2022 05/26/2023 documented in this encounter Plan of Treatment Upcoming Encounters Date Type Department Care Team (Late st Contact Info) Description 11/24/2023 10:00 EDT Telemedicine [facility] Rheumatology & Immunology - [address] [id number] Harsh Malloy, CARD PLACER [address] [facility], [address] [place] [phone] documented as of this encounter Visit Diagnoses Not on filedocumented in this encounter Discontinued Medications Medication Sig Discontinue Reason Start Date End Da te folic acid (FOLVITE) 1 mg tablet Take 1 Tablet by mouth daily. 06/14/2022 09/09/2022 documented as of this encounter Care Teams Hematologist Relationship Specialty Start Date End Date Kayleigh Mallory FNP [address] [facility] [address] [place] [address] PCP - General 02/04/19 documented as of this encounter
--- OUTSIDE RECORDS SUMMARY | 2023-11-13 17:01 | XMS_ITS | Encounter Summary ---
Author Organization [facility] Address [address] [place] [address] Care Team Providers Care Product Marketing Specialist Name Role Phone Kayleigh Mallory WILFREDO Primary Care Provider [phone] Reason for Visit * Reason Comments Medications Refill Encounter Details Date Type Department Care Team (Late st Contact Info) Description 08/22/2022 Refill [facility] Rheumatology & Immunology - [facility] [address] [place], [place] [address] Harsh Malloy, SIFTER AND MILLER 111 [facility], [address] [place] [address] Medications Refill Social History Tobacco [...] WEEKLY LABS ARE NEEDED EVERY 3 MONTHS 120 Tablet 1 08/22/2022 11/04/2022 documented in this encounter Plan of Treatment Upcoming Encounters Date Type Department Care Team (Late st Contact Info) Description 11/24/2023 10:00 EDT Telemedicine [facility] Rheumatology & Immunology - [address] [id number] Harsh Malloy, ELBERT [address] [facility], [address] [place] [phone] documented as of this encounter Visit Diagnoses Not on filedocumented in this encounter Discontinued Medications Medication Sig Discontinue Reason Start Date End Da te methotrexate 2.5 mg tablet Take 10 Tablets by mouth once a week. Labs are needed every 3 months 06/20/2022 08/22/2022 documented as of this encounter Care Teams Product Marketing Specialist Relationship Specialty Start Date End Date Kayleigh Mallory FNP [address] [place] [address] [address] [place] [address] PCP - General 02/04/19 documented as of this encounter
--- OUTSIDE RECORDS SUMMARY | 2023-11-13 17:01 | XMS_ITS | Encounter Summary ---
Author Organization [facility] Address [address] [place] [address] Care Team Providers Care Mathematics Academic Chair Name Role Phone Kayleigh Mallory WILFREDO Primary Care Provider [phone] Encounter Details Date Type Department Care Team (Late st Contact Info) Description 01/11/2022 Specialty Pharmacy [facility] Ambulatory [facility] - [facility] [address] [place], [place] [address] Yamile Plaza RPH Social History Tobacco Use Types Packs/Day Years [...] as of this encounter Progress Notes * Migdalia Mejia - 01/11/2022 1526 EDT [facility] Specialty Pharmacy Delivery Information Hours: Friday-Friday 8:30am - 5:00pm *Pharmacist available non profit financial controller 18/11 Delivery Service: FedEx Delivery Window: None Specified Date of Delivery: Fri (01/18) Tracking # : [id number] documented in this encounter Plan of Treatment Upcoming Encounters Date Type Department Care Team (Late st Contact Info) Description 11/24/2023 10:00 EDT Telemedicine [facility] Rheumatology & Immunology - [address] [id number] Harsh Malloy NP 111 [facility], [address] [place] [phone] documented as of this encounter Visit Diagnoses Not on filedocumented in this encounter Care Teams Mathematics Academic Chair Relationship Specialty Start Date End Date Kayleigh Mallory FNP [address] [facility] [address] [place] [phone] PCP - General 02/04/19 documented as of this encounter
--- OUTSIDE RECORDS SUMMARY | 2023-11-13 17:01 | XMS_ITS | Encounter Summary ---
Author Organization [facility] Address [address] [place] [address] Care Team Providers Care Landscape Architect And Planner Name Role Phone Kayleigh Mallory WILFREDO Primary Care Provider [phone] Encounter Details Date Type Department Care Team ([facility] Contact Info) Description 05/21/2021 Specialty Pharmacy [facility] Ambulatory Pharmacy - [facility] [address] [place] [address] Eric Redmond RPH Social History Tobacco Use Types Packs/Day [...] Encounters Date Type Department Care Team (Late Contact Info) Description 11/24/2023 10:00 EDT Telemedicine [facility] Rheumatology & Immunology - [address] [phone] Harsh Malloy, CONSTRUCTION ADMINISTRATOR 111 [facility], [address] [place] [phone] documented as of this encounter Visit Diagnoses Not on filedocumented in this encounter Care Teams Landscape Architect And Planner Relationship Specialty Start Date End Date Kayleigh Mallory FNP [address] [facility] [address] [place] [phone] PCP - General 02/04/19 documented as of this encounter
--- OUTSIDE RECORDS SUMMARY | 2023-11-13 17:01 | XMS_ITS | Encounter Summary ---
Author Organization [facility] Address [address] [place] [address] Care Team Providers Care Non Destructive Evaluation Specialist Name Role Phone Kayleigh Mallory Primary Care Provider Encounter Details Date Type Department Care Team (Latest Contact Info) Description 11/14/2022 Lab Requisition [facility] Pathology & Laboratory Medicine - [facility] [address] [place] [address] Kayleigh Mallory FNP [address] [place] [address] Encounter for gynecological examination (general) (routine) without abnormal findings; Encounter for screening for malignant neoplasm of cervix; Encounter for general adult medical examination without abnormal findings Social History Tobacco Use Types Packs/Day Years [...] [facility] - [facility] [address] [place] [address] Harsh Malloy NP [address] [facility], [address] [place] [address] documented as of this encounter Procedures Procedure Name Priority Date/Time Associated Diagnosis Comments PAP TEST Today 11/13/2022 9:15 EDT Encounter for gynecological examination (general) (routine) without abnormal findings Encounter for screening for malignant neoplasm of cervix Encounter for general adult medical examination without abnormal findings HPV DNA DETECTION WITH GENOTYPING, PCR Today 11/13/2022 9:15 EDT Encounter for gynecological examination (general) (routine) without abnormal findings Encounter for screening for malignant neoplasm of cervix Encounter for general adult medical examination without abnormal findings documented in this encounter Results * HUMAN PAPILLOMAVIRUS (HPV) DETECTION-HIGH RISK TYPES (11/13/2022 9:15 EDT) HPV other High Risk types, PCR Negative Negative 11/22/2022 14:12 EDT [facility] Comment:No E6 or E7 mRNA is detected from HPV types 16,18,31,33,35,39,45,51,52,56,58,59,66, and 68 by printing plate setter mediated amplification. Papanicolaou smear specimen (specimen) CERVIX UTERI STRUCTURE / Unknown 11/13/2022 9:15 EDT 11/21/2022 9:43 EDT Kayleigh GARCIAP MICROBIOLOGY - GENER AL ORDERABLES [facility] [address] [place] [address] * PAP TEST (11/13/2022 9:15 EDT) Specimens A. Cervix and/or Endocervix , ThinPrep Imaging System with Manual Evaluation 11/22/2022 14:12 EDT [facility] Specimen Adequacy Satisfactory for Evaluation - transformation zone component present 11/22/2022 14:12 EDT [facility] General Categorization Negative for intraepithelial lesion or malignancy 11/22/2022 14:12 EDT [facility] Attestation . 11/22/2022 14:12 T [facility] at 1412 Clinical History SEE BELOW 11/23/19 14:12 EDT [facility] HPV The result for the Human Papillomavirus (HPV) Detection-High Risk Types is Negative. No E6 or E7 mRNA is detected from HPV types 16,18,31,33,35,39 ,45,51,52,56,58,5 9,66, and 68 by printing plate setter mediated amplification.Cinthya ting was performed on specimen [id number] and was resulted on 11/22/2022 1412 EDT by ALF, LAB INSTRUMENT RESULTS IN 11/22/2022 14:12 EDT [facility] Performing Lab [facility] 11/22/2022 14:12 EDT [facility] Scanned Images 11/22/2022 14:12 EDT [facility] Papanicolaou smear specimen (specimen) CERVIX UTERI STRUCTURE / Unknown 11/13/2022 9:15 EDT 11/14/2022 14:55 EDT Kayleigh VILLALOBOS PATHOLOGY ORDERABLES [facility] [address] [place] [address] documented in this encounter Visit Diagnoses Diagnosis Encounter for gynecological examination (general) (routine) without abnormal findings Encounter for screening for malignant neoplasm of cervix Screening for malignant neoplasm of the cervix Encounter for general adult medical examination without abnormal findings Unspecified general medical examination documented in this encounter Care Teams Non Destructive Evaluation Specialist Relationship Specialty Start Date End Date Kayleigh Mallory FNP [address] [facility] [address] [place] [phone] PCP - General 02/04/19 documented as of this encounter
--- OUTSIDE RECORDS SUMMARY | 2023-11-13 17:01 | XMS_ITS | Encounter Summary ---
Author Organization [facility] Address [address] [place] [address] Care Team Providers Care Mainframe Architect Name Role Phone Kayleigh Mallory WILFREDO Primary Care Provider [phone] Encounter Details Date Type Department Care Team (Late st Contact Info) Description 12/06/2021 Specialty Pharmacy [facility] Ambulatory Pharmacy - [facility] [address] [place], [place] [address] Damaris Torrez RPH Social History Tobacco Use Types Packs/Day [...] as of this encounter Progress Notes * Kamala Hull - 12/06/2021 1354 EDT Specialty Pharmacy Non-Outreach Documentation Medication: Humira Clinic: Rheum Reason for Encounter: Outreach Notes: PA required Follow up date: 12/07/21 or daily Follow up reason: Outreach * Lois Li - 12/06/2021 1354 EDT [facility] Specialty Pharmacy Delivery Information Hours: Friday-Friday 8:30am - 5:00pm *Pharmacist available administrative operations coordinator 18/11 Delivery Service: [employer] Delivery Window: None Specified Date of Delivery: 12/12/21 Tracking # : [id number] documented in this encounter Plan of Treatment Upcoming Encounters Date Type Department Care Team (Late st Contact Info) Description 11/24/2023 10:00 EDT Telemedicine [facility] Rheumatology & Immunology - [facility] [address] [place] [address] Harsh Malloy NP 111 [facility], [address] [place] [phone] documented as of this encounter Visit Diagnoses Not on filedocumented in this encounter Care Teams Mainframe Architect Relationship Specialty Start Date End Date Kayleigh Mallory FNP [address] [place] [address] [address] [place] [address] PCP - General 02/04/19 documented as of this encounter
--- OUTSIDE RECORDS SUMMARY | 2023-11-13 17:01 | XMS_ITS | Encounter Summary ---
Author Organization [facility] Address [address] [place] [address] Care Team Providers Care At Home Independent Call Center Agent Name Role Phone Kayleigh Mallory WILFREDO Primary Care Provider [phone] Reason for Visit * Reason Comments Other Encounter Details Date Type Department Care Team (Late st Contact Info) Description 08/18/2021 [facility] Rheumatology & Immunology - [facility] [address] [place], [place] [phone] Harsh Malloy, COMPLIANCE ASSOCIATE [address] [facility], [address] [place] [address] Other Social History Tobacco Use Types Packs/Day Years [...] mg tablet TAKE 10 TABLETS BY MOUTH ONCE A WEEK 120 Tablet 08/20/2021 08/28/2021 documented in this encounter Plan of Treatment Upcoming Encounters Date Type Department Care Team (Late st Contact Info) Description 11/24/2023 10:00 EDT Telemedicine [facility] Rheumatology & Immunology - [address] [phone] Harsh Malloy, COMPLIANCE ASSOCIATE [address] [facility], [address] [place] [phone] documented as of this encounter Visit Diagnoses Not on filedocumented in this encounter Discontinued Medications Medication Sig Discontinue Reason Start Date End Da te methotrexate 2.5 mg tablet TAKE 10 TABLETS BY MOUTH ONCE A WEEK 03/01/2021 08/20/2021 documented as of this encounter Care Teams At Home Independent Call Center Agent Relationship Specialty Start Date End Date Kayleigh Mallory FNP [address] [facility] [address] [place] [address] PCP - General 02/04/19 documented as of this encounter
--- OUTSIDE RECORDS SUMMARY | 2023-11-13 17:01 | XMS_ITS | Encounter Summary ---
Author Organization [facility] Address [address] [place] [address] Care Team Providers Care Dynamite Packing Machine Feeder Name Role Phone Kayleigh Mallory WILFREDO Primary Care Provider [phone] Reason for Referral * Consult (See Order Priority) - Authorized Specialty Diagnoses / Procedures Referred By Twyla love Referred To Contact Pharmacy Diagnoses Psoriasis with arthropathy ([facility]-CMS) Long-term use of high-risk medication Harsh Malloy NP [address] [place] [phone] [facility] [address] [place] [id number] Referral ID Status Reason Start Date Expiration Date Visits Requested Visits Authorized [id number] Authorized Specialty Services Required 02/28/2022 1 1 Question Answer PA Type: Re-auth Medication to be Prior Authorized: humira 40 mg sc every 14 days Comments The purpose of this request is to inform precertification staff that the requested service needs to be reviewed for prior-authorization. * Episode Based Medications (See Order Priority) - Closed Specialty Diagnoses / Procedures Referred By Twyla love Referred To Contact Infusion Therapy Diagnoses Psoriasis with arthropathy (HCC-CMS) Long-term use of high-risk medication Harsh Malloy NP [address] [place] [address] [address] [facility] [address] [place] [address] Referral ID Status Reason Start Date Expiration Date V isits Requested Visits Authorized [id number] Closed Specialty Services Required 02/28/2022 02/28/2023 2 2 Question Answer Is this appt for transfusion, medication, test or injection? Injection Injection Dose eveusheld 600mg IM What is the injection frequency? every 6 months Are labs to be obtained during the appt? N/A Does this have a lab dependency? This patient is not lab dependent Are preliminary tests complete (like MRI)? N/A Have orders been place for this appt? (i.e.: Blood Transfusion Order Set, Therapy Plan, Lab Orders, Supportive Plan, Etc) Yes Reason for Visit * Reason Comments Follow-up 6 mo f/u, PSA Encounter Details Date Type Department Care Team (Late st Contact Info) Description 02/28/2022 10:30 EDT Office Visit [facility] Rheumatology & Immunology - [address] [address] Harsh Malloy, ELBERT [address] [address] Psoriasis with arthropathy (HCC-CMS) (Primary Dx); Long-term use of high-risk medication; Need for pneumococcal vaccination Social History Tobacco Use Types Packs/Day Years [...] Reading Time Taken Comments Blood Pressure 120/78 02/28/2022 1020 EDT Pulse 72 02/28/2022 1020 EDT Temperature - - Respiratory Rate - - Oxygen Saturation - - Inhaled Oxygen Concentration - - Weight 67.1 kg (148 lb) 02/28/2022 1020 EDT Height 165.1 cm (5' 5) 02/28/2022 1020 EDT Body Mass Index 24.63 02/28/2022 1020 EDT documented in this encounter Functional Status [...] * Patient Instructions* Harsh Malloy NP - 02/28/2022 10:30 EDT 1. Continue current meds. 2. Please get updated TB, hep B/C These are repeated every 10 yrs 3. Evusheld is prophylaxis against covid 19 after vaccination. It is still under EAU. It is two injections into the glutes. Possible side effects include: OSEGUERA, cough, injection site reaction, allergic reaction, fatigue, bruising at injection site. Recommend this at least 14 days after last covid vaccine if possible. 4. evusheld orders placed for 05/2022 Recommend pneumonia 20 hold methotrexate 1 week after vaccine then restart 5. F/u 6 months in person documented in this encounter Ordered Prescriptions Prescription Sig Dispensed Refills Start Date End Da te adalimumab (HUMIRA,CF, PEN) 40 mg/0.4 mL pen Inject 0.4 mL into the skin every 14 days. Specialty. 6 Kit 1 02/28/2022 09/13/2022 documented in this encounter Progress Notes * Harsh Malloy NP - 02/28/2022 1030 EDT Images from the original note were not included. Patient ID: Nina Boothe is a 51 y.o. y.o. female Subjective: Chief Complaint: Follow-up (6 mo f/u, PSA) HPI: Here for follow up of psoriatic arthritis on humira and methotrexate. 01/13/2018 Sphyncerotomy Last seen 08/28/21 by myself doing well. Changes since last visit REVIEW OF SYSTEMS: Yes No Yes No Fever X Joint pain Weight gain or loss pounds (lbs) Duration of AM joint stiffness none hours / min Eye pain or dryness X Numbness/tingling X Mouth or nose sores X Heart burn / Nausea X Chest pain X Diarrhea X Shortness of Breath X Blood in stool X Cough X Burning on urination X Skin rash X Hand/Foot color change in cold X evusheld 12/06/21 Patient Active Problem List Diagnosis ??? Psoriasis with arthropathy (HCC) ??? Encounter for long-term (current) use of medications ??? Hypertensive disorder ??? Environmental allergies ??? Psoriasis ??? Psoriasis with arthropathy (HCC) ??? History of COVID-19 Past Medical History: Diagnosis Date ??? Abnormal [...] is as documented in Prism. Objective: BP 120/78 (BP Cuff Location: Left arm, BP Patient Position: Sitting, BP Cuff Sizes: Adult, regular) Pulse 72 Ht 165.1 cm (65) Wt 67.1 kg (148 lb) BMI 24.63 kg/m?? PHYSICAL EXAM: ?? General: No acute [...] present. Appropriate range of motion present. Wrist/Hand: mild right 5th MCP tenderness No significant tenderness, swelling, effusions, erythema or warmth is present. Appropriate range of motion present. Hips/Knee: No significant tenderness, or erythema or warmth is present.?Appropriate range of motion present. Ankle/Foot:?? pes planus bilaterally, bony hypertrophy bilateral ankles, cock ups No significant tenderness, swelling, effusions, erythema or warmth is present. Appropriate range of motion present. ?? LABS: [id number] Summary Functional Status: 0 Pain Tolerance: 2.5 Global Estimate: 1.5 Score: 4 Interpretation: Low ASSESSMENT: 1. 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 Doing well on MTX 25mg po weekly and humira, no joint activity . 2. No psoriasis 3. Patient is currently [...] 6 pes planus - recommend arch supports Pfizer 1-4 evusheld 12/06/21 [id number] and therapy plan placed Encounter Diagnoses Name Primary? Psoriasis with arthropathy (HCC) Yes ??? Long-term use of high-risk medication PLAN: 1. Continue current meds. 2. Labs every 3-4 months Per CDC guidelines recommend covid #4, 3 months after #3 Hold humira and methotrexate 1-2 weeks , after each vaccine, then restart. Optional 5th covid vaccine per CDC, 4 months after #4 3. Will submit you for evusheld lottery, recommend this 3 months after your last covid vaccine 4. F/u 6 months in person 1. Psoriasis with arthropathy (HCC) 2. Long-term use of high-risk medication No orders of the defined types were placed in this encounter. Barriers to learning identified: No Patient verbalizes understanding and agrees with plan Yes I was directly supervised by: Dr. Farrell . They were present in clinic and available for consult ifneeded. Harsh Malloy NP 02/28/2022 10:27 I spent a total of 30 minutes on the date of this encounter meeting with the patient and reviewing documentation/coordinating care as described in the above note. No procedures were performed at the time of the visit. documented in this encounter Plan of Treatment Upcoming Encounters Date Type Department Care Team (Late st Contact Info) Description 11/24/2023 10:00 EDT Telemedicine [facility] Rheumatology & Immunology - [address] [address] Harsh Malloy NP [address] [place] [address], [address] [place] [phone] Scheduled Referrals Name Type Priority Associated Diagnoses Order Schedule AMB CONS/FOLLOW UP [facility] Outpatient Referral Routine/Next Available Psoriasis with arthropathy (HCC-CMS) (HCC) (HCC-CMS) Long-term use of high-risk medication Expected: 06/08/2022 (Approximate), Expires: 02/28/2023 AMB CONS/FOLLOW UP SPECIALTY PHARMACY MEDICATION PRIOR AUTHORIZATION REQUEST Outpatient Referral Routine/Next Available Psoriasis with arthropathy (HCC-CMS) (HCC) (HCC-CMS) Long-term use of high-risk medication Expected: 03/07/2022 (Approximate), Expires: 02/28/2023 documented as of this encounter Procedures Procedure Name Priority Date/Time Associated Diagnosis Comments HEPATITIS C AB W REFLEX TO HCV RNA BY PCR Routine 02/28/2022 11:36 EDT Psoriasis with arthropathy (HCC-CMS) Long-term use of high-risk medication HEPATITIS B CORE ANTIBODY (TOTAL) Routine 02/28/2022 11:36 EDT Psoriasis with arthropathy (HCC-CMS) Long-term use of high-risk medication HEPATITIS B SURFACE ANTIBODY Routine 02/28/2022 11:36 EDT Psoriasis with arthropathy (HCC-CMS) Long-term use of high-risk medication HEPATITIS B SURFACE ANTIGEN Routine 02/28/2022 11:36 EDT Psoriasis with arthropathy (HCC-CMS) Long-term use of high-risk medication QUANTIFERON MITOGEN (PERFORMABLE) Routine 02/28/2022 11:35 EDT Psoriasis with arthropathy (HCC-CMS) Long-term use of high-risk medication QUANTIFERON TB2 (PERFORMABLE) Routine 02/28/2022 11:35 EDT Psoriasis with arthropathy (HCC-CMS) Long-term use of high-risk medication QUANTIFERON TB1 (PERFORMABLE) Routine 02/28/2022 11:35 EDT Psoriasis with arthropathy (HCC-CMS) Long-term use of high-risk medication QUANTIFERON NIL (PERFORMABLE) Routine 02/28/2022 11:35 EDT Psoriasis with arthropathy (HCC-CMS) Long-term use of high-risk medication QUANTIFERON INTERPRETATION (PERFORMABLE) Today 02/28/2022 11:35 EDT Psoriasis with arthropathy (HCC-CMS) Long-term use of high-risk medication QUANTIFERON TB GOLD PLUS Routine 02/28/2022 11:35 EDT Psoriasis with arthropathy (HCC-CMS) Long-term use of high-risk medication documented in this encounter Results * HEPATITIS C AB W REFLEX TO HCV RNA BY PCR (02/28/2022 11:36 EDT) Hep C Antibody Negative Negative 02/28/2022 16:05 EDT [facility] Blood VENOUS BLOOD / Unknown Venipuncture / Unknown 02/28/2022 11:36 EDT 02/28/2022 12:17 EDT Harsh Malloy BLUEPRINT PROCESSOR CHEMISTRY & BLOOD G ORDERABLES Performing Organization Address [facility] Co de Phone Number [facility] [address] [place] [address] * HEPATITIS B SURFACE ANTIGEN (02/28/2022 11:36 EDT) Hep B Surface Ag Negative Negative 02/28/2022 15:38 EDT [facility] Blood VENOUS BLOOD / Unknown Venipuncture / Unknown 02/28/2022 11:36 EDT 02/28/2022 12:17 EDT Harsh Malloy BLUEPRINT PROCESSOR CHEMISTRY & BLOOD G ORDERABLES Performing Organization Address [facility] Co de Phone Number [facility] [address] [place] [address] * HEPATITIS B SURFACE ANTIBODY (02/28/2022 11:36 EDT) Hep B Surface Ab, Quantitative <3.1 See Note mIU/mL 03/01/2022 8:42 EDT [facility] Comment: Reference Range for Hep B Surface Ab, Quant: Positive: >= 10.0 mIU/mL Negative: ??< 10.0 mIU/mL Patient is presumed to not be immune to infection with Hepatitis B Virus. Hep B Surface Ab, Qualitative Negative See Note 03/01/2022 8:42 EDT [facility] Comment: Reference Range for Hep B Surface Ab, Qual: Unvaccinated: ??Negative Vaccinated: ??Positive Blood VENOUS BLOOD / Unknown Venipuncture / Unknown 02/28/2022 11:36 EDT 02/28/2022 12:17 EDT Harsh Johnsonjody BLUEPRINT PROCESSOR CHEMISTRY & BLOOD G ORDERABLES Performing Organization Address [facility] de Phone Number [facility] [address] [place] [address] * HEPATITIS B CORE ANTIBODY (TOTAL) (02/28/2022 11:36 EDT) Hepatitis B Core Ab, Total Negative Negative 02/28/2022 16:08 EDT [facility] Blood VENOUS BLOOD / Unknown Venipuncture / Unknown 02/28/2022 11:36 EDT 02/28/2022 12:17 EDT Harsh Nancy Mellissa BLUEPRINT PROCESSOR CHEMISTRY & BLOOD G ORDERABLES Performing Organization Address [facility] de Phone Number [facility] [address] [place] [address] * QUANTIFERON INTERPRETATION (PERFORMABLE) (02/28/2022 11:35 EDT) Pathologist [facility] Quantiferon Interpretation Negative Negative 03/01/2022 13:27 EDT [facility] Comment:No interferon-gamma response to M. tuberculosis antigens was detected. ??Infection with M. tuberculosis is unlikely. A single negative result does not exclude infection with M. tuberculosis. ??In patients at high risk for M. tuberculosis infection, a second test should be considered. TB1 Ag minus Nil 0.00 IU/ml 03/01/20 13:27 EDT [facility] TB2 Ag minus Nil 0.00 IU/mL 03/01/20 13:27 EDT [facility] Blood VENOUS BLOOD / Unknown Venipuncture / Unknown 02/28/2022 11:35 EDT 03/01/2022 13:16 EDT Narrative [facility] - 03/01/2022 13:27 EDT Results were obtained with the [employer] QuantiFERON-TB Gold Plus CLIA. New platform in use 01/03/2021 Harsh Malloy BLUEPRINT PROCESSOR IMMUNOLOGY AND SERO LOGY ORDERABLES Performing Organization Address [facility] Co de Phone Number [facility] [address] [place] [address] * QUANTIFERON MITOGEN (PERFORMABLE) (02/28/2022 11:35 EDT) Blood VENOUS BLOOD / Unknown Venipuncture / Unknown 02/28/2022 11:35 EDT 02/28/2022 11:51 EDT Harsh Malloy BLUEPRINT PROCESSOR IMMUNOLOGY AND SERO LOGY ORDERABLES Performing Organization Address [facility] Co de Phone Number [facility] [address] [place] [address] * QUANTIFERON TB2 (PERFORMABLE) (02/28/2022 11:35 EDT) Blood VENOUS BLOOD / Unknown Venipuncture / Unknown 02/28/2022 11:35 EDT 02/28/2022 11:51 EDT Harsh Malloy BLUEPRINT PROCESSOR IMMUNOLOGY AND SERO LOGY ORDERABLES Performing Organization Address [facility] Co de Phone Number [facility] [address] [place] [address] * QUANTIFERON TB1 (PERFORMABLE) (02/28/2022 11:35 EDT) Blood VENOUS BLOOD / Unknown Venipuncture / Unknown 02/28/2022 11:35 EDT 02/28/2022 11:51 EDT Harsh Malloy BLUEPRINT PROCESSOR IMMUNOLOGY AND SERO LOGY ORDERABLES Performing Organization Address [facility] Co de Phone Number [facility] [address] [place] [address] * QUANTIFERON NIL (PERFORMABLE) (02/28/2022 11:35 EDT) Blood VENOUS BLOOD / Unknown Venipuncture / Unknown 02/28/2022 11:35 EDT 03/01/2022 11:35 EDT Harsh Malloy NP IMMUNOLOGY AND SERO LOGY ORDERABLES [facility] [address] [place] [address] documented in this encounter Visit Diagnoses Diagnosis Psoriasis with arthropathy (HCC-CMS)- Primary Psoriatic arthropathy Long-term use of high-risk medication Need for pneumococcal vaccination Need for prophylactic vaccination against streptococcus pneumoniae (pneumococcus) documented in this encounter Discontinued Medications Medication Sig Discontinue Reason Start Date End Da te adalimumab (HUMIRA,CF, PEN) 40 mg/0.4 mL pen Inject 0.4 mL into the skin every 14 days. Specialty. Reorder 08/28/2021 02/28/2022 documented as of this encounter Orders Immunization/Injection Count Last Ordered Date First Ordered Date PNEUMOCOCCAL CONJUGATE VACCI NE 20-VALENT (PCV20) (PREVNAR-20) IM (18 YRS+) 1 02/28/2022 documented in this encounter Care Teams Dynamite Packing Machine Feeder Relationship Specialty Start Date End Date Kayleigh Mallory FNP [address] [place] [address] [address] [place] [phone] PCP - General 02/04/19 documented as of this encounter
--- OUTSIDE RECORDS SUMMARY | 2023-11-13 17:01 | XMS_ITS | Encounter Summary ---
Author Organization [facility] Address [address] [place] [address] Care Team Providers Care Atomic Fuel Assembler Name Role Phone Kayleigh Mallory WILFREDO Primary Care Provider [phone] Encounter Details Date Type Department Care Team ([facility] Contact Info) Description 09/16/2022 Specialty Pharmacy [facility] Ambulatory [facility] - [facility] [address] [place], [place] [address] Damaris Torrez RPH Social History Tobacco Use [...] Upcoming Encounters Date Type Department Care Team ([facility] Contact Info) Description 11/24/2023 10:00 EDT Telemedicine [facility] Rheumatology & Immunology - [address] [phone] Harsh Malloy, PERSONAL CAREGIVER [address] [facility], [address] [place] [phone] documented as of this encounter Visit Diagnoses Not on filedocumented in this encounter Care Teams Atomic Fuel Assembler Relationship Specialty Start Date End Date Kayleigh Mallory FNP [address] [facility] [address] [place] [phone] PCP - General 02/04/19 documented as of this encounter
--- OUTSIDE RECORDS SUMMARY | 2023-11-13 17:01 | XMS_ITS | Encounter Summary ---
Author Organization [facility] Address [address] [place] [address] Care Team Providers Care Broke Handler Name Role Phone Kayleigh Mallory WILFREDO Primary Care Provider [phone] Encounter Details Date Type Department Care Team (Late st Contact Info) Description 03/08/2022 Specialty Pharmacy [facility] - [facility] [address] [place], [place] [phone] Damaris Torrez RPH Social History Tobacco Use [...] as of this encounter Progress Notes * Mirtha Holbrook - 03/08/2022 1032 EST [facility] Specialty Pharmacy Delivery Information Hours: Friday-Friday 8:30am - 5:00pm *Pharmacist available cardiology clinical consultant 18/11 Delivery Service: [employer] Delivery Window: None Specified Date of Delivery: 03/19/22 Tracking # : [id number] documented in this encounter Plan of Treatment Upcoming Encounters Date Type Department Care Team (Late st Contact Info) Description 11/24/2023 10:00 EDT Telemedicine [facility] Rheumatology & Immunology - [address] [phone] Harsh Malloy, ELBERT [address] [facility], [address] [place] [address] documented as of this encounter Visit Diagnoses Not on filedocumented in this encounter Care Teams Broke Handler Relationship Specialty Start Date End Date Kayleigh Mallory FNP [address] [facility] [address] [place] [phone] PCP - General 02/04/19 documented as of this encounter
--- OUTSIDE RECORDS SUMMARY | 2023-11-13 17:01 | XMS_ITS | Encounter Summary ---
Author Organization [facility] Address [address] [place] [address] Care Team Providers Care Ticket Collector Name Role Phone Kayleigh Mallory WILFREDO Primary Care Provider [phone] Reason for Visit * Reason Comments Medications Refill Encounter Details Date Type Department Care Team (Late st Contact Info) Description 05/20/2022 Refill [facility] Rheumatology & Immunology - [facility] [address] [place], [place] [address] Harsh Malloy, PIZZA CHEF 111 [facility], [address] [place] [address] Medications Refill Social History Tobacco [...] Description 11/24/2023 10:00 EDT Telemedicine [facility] Rheumatology & Immunology - [address] [phone] Harsh Malloy PIZZA CHEF [address] [facility], [address] [place] [phone] documented as of this encounter Visit Diagnoses Not on filedocumented in this encounter Care Teams Ticket Collector Relationship Specialty Start Date End Date Kayleigh Mallory FNP [address] [facility] [address] [place] [phone] PCP - General 02/04/19 documented as of this encounter
--- OUTSIDE RECORDS SUMMARY | 2023-11-13 17:01 | XMS_ITS | Encounter Summary ---
Author Organization [facility] Address [address] [place] [address] Care Team Providers Care Photoradio Operator Name Role Phone Kayleigh Mallory WILFREDO Primary Care Provider [phone] Reason for Visit * Laboratory Services (Routine/Next Available) - Order Cancelled Specialty Diagnoses / Procedures Referred By Twyla love Referred To Contact Diagnoses Psoriatic arthritis ([facility]) Long-term use of high-risk medication Procedures COMPREHENSIVE METABOLIC PANEL (CMP) Harsh Malloy, ELBERT 111 [facility], [address] [place] [address] Referral ID Status Reason Start Date Expiration Date V isits Requested Visits Authorized [id number] Order Cancelled 05/08/2021 4 4 Encounter Details Date Type Department Care Team (Late st Contact Info) Description 08/28/2021 11:00 EDT Phlebotomy Only [facility] ED Center 2 Phlebotomy [address] [place], [place] [address] Surgery Scheduler, Acc Phlebotomy Psoriatic arthritis (HCC-CMS) (HCC) ([facility]); Long-term use of high-risk medication Social History Tobacco Use Types Packs/Day Years [...] Contact Info) Description 11/24/2023 10:00 EDT Telemedicine [facility] Rheumatology & Immunology - [address] [address] Harsh Malloy NP [address] [place] [address], [address] 5 [place] [phone] documented as of this encounter Procedures Procedure Name Priority Date/Time Associated Diagnosis Comments COMPLETE BLOOD COUNT AND DIFFERENTIAL Routine 08/28/2021 11:04 EDT Psoriatic arthritis ([facility]) ([facility]) ([facility]) Long-term use of high-risk medication COMPREHENSIVE METABOLIC PANEL (CMP) Routine 08/28/2021 11:04 EDT Psoriatic arthritis ([facility]) ([facility]) ([facility]) Long-term use of high-risk medication documented in this encounter Results * (ABNORMAL) COMPLETE BLOOD COUNT AND DIFFERENTIAL (08/28/2021 11:04 EDT) WBC 7.00 4.00 - 12.40 K/cmm 08/28/2021 11:[address] [facility] RBC 4.48 3.86 - 5.04 M/cmm 08/28/2021 11:[address] [facility] Hemoglobin 14.2 11.6 - 15.2 gm/dL 08/28/2021 11:19 [facility] HCT 41.4 34.9 - 44.4 % 08/28/2021 11:19 [facility] MCV 92 81 - 98 fl 08/28/2021 11:19 [facility] MCH 31.7 26.7 - 33.3 pg 08/28/2021 11:19 [facility] MCHC 34.3 32.1 - 35.9 gm/dL 08/28/2021 11:19 [facility] RDW-CV 13.9 <14.7 % 08/28/2021 11:19 [facility] RDW-SD 47.3 <50.4 fl 08/28/2021 11:19 [facility] PLT 265 141 - 377 K/cmm 08/28/2021 11:19 [facility] MPV 9.5 9.5 - 12.7 fl 08/28/2021 11:19 [facility] % Neutrophils 62.0 % 08/28/2021 11:19 [facility] % Lymphocytes 24.1 % 08/28/2021 11:19 [facility] % Monocytes 11.6 % 08/28/2021 11:19 [facility] % Eosinophils 1.3 % 08/28/2021 11:19 [facility] % Basophils 0.9 % 08/28/2021 11:19 [facility] % Immature Grans 0.1 % 08/29/19 11:19 [facility] Absolute Neutrophils 4.34 2.20 - 8.85 K/cmm 08/28/2021 11:19 [facility] Absolute Lymphocytes 1.69 1.09 - 3.30 K/cmm 08/28/2021 11:19 [facility] Absolute Monocytes 0.81(H) 0.10 - 0.80 K/cmm 08/28/2021 11:19 [facility] Absolute Eosinophils 0.09 0.03 - 0.61 /[facility] 08/28/2021 11:[address] [facility] ABS Basophils 0.06 0.01 - 0.11 [facility] 08/28/2021 11:19 [facility] Absolute Immature Grans 0.01 0.00 - 0.06 [facility] 08/28/2021 11:19 [facility] Type of Differential: Auto 08/28/2021 11:19 [facility] Blood VENOUS BLOOD / Unknown Venipuncture / Unknown 08/28/2021 11:04 EDT 08/28/2021 11:08 EDT Harsh Malloy MEASUREMENT ADVISOR PACKAGES & DNA PROB E ORDERABLES [facility] [address] [place] [address] * COMPREHENSIVE METABOLIC PANEL (CMP) (08/28/2021 11:04 EDT) Sodium 136 136 - 145 mmol/L 08/28/2021 11:54 [facility] Potassium 4.1 3.5 - 5.0 mmol/L 08/28/2021 11:54 [facility] Chloride 100 96 - 110 mmol/L 08/28/2021 11:54 [facility] CO2 Total 28 22 - 32 mmol/L 08/28/2021 11:54 [facility] Glucose 89 70 - 100 mg/dL 08/28/2021 11:54 [facility] BUN 18 10 - 26 mg/dL 08/28/2021 11:54 [facility] Creatinine 0.84 0.52 - 1.04 mg/dL 08/28/2021 11:54 [facility] eGFR 83 >60 mL/min/1.7 3m2 08/28/2021 11:54 [facility] Total Protein 7.0 6.3 - 8.2 g/dL 08/28/2021 11:54 [facility] Albumin 4.2 3.4 - 4.9 g/dL 08/28/2021 11:[address] [facility] Alkaline Phosphatase 65 38 - 126 U/L 08/28/2021 11:[address] [facility] AST 29 15 - 46 U/L 08/28/2021 11:[address] [facility] ALT 14 <35 U/L 08/28/2021 11:54 [facility] Bilirubin, Total <0.5 <1.4 mg/dL 08/29/19 11:[address] [facility] Calcium 8.9 8.5 - 10.5 mg/dL 08/28/2021 11:54 [facility] Albumin/Globulin Ratio 1.5 1.0 - 2.5 08/28/2021 11:54 [facility] Anion Gap 8 5 - 14 08/28/2021 11:[address] [facility] Blood VENOUS BLOOD / Unknown Venipuncture / Unknown 08/28/2021 11:04 EDT 08/28/2021 11:22 EDT Harsh Malloy NP CHEMISTRY & BLOOD G ORDERABLES Performing Organization Address City/State/[facility] Co de Phone Number [facility] [address] [place] [address] documented in this encounter Visit Diagnoses Diagnosis Psoriatic arthritis ([facility]) Psoriatic arthropathy Long-term use of high-risk medication documented in this encounter Care Teams Photoradio Operator Relationship Specialty Start Date End Date Kayleigh Mallory FNP [address] [place] [address] [address] [place] [address] PCP - General 02/04/19 documented as of this encounter
--- OUTSIDE RECORDS SUMMARY | 2023-11-13 17:01 | XMS_ITS | Encounter Summary ---
Author Organization [facility] Address [address] [place] [address] Care Team Providers Care Caustic Purification Operator Name Role Phone Kayleigh Mallory WILFREDO Primary Care Provider [phone] Encounter Details Date Type Department Care Team ([facility] Contact Info) Description 06/21/2021 Specialty Pharmacy [facility] Ambulatory Pharmacy - [facility] [address] [place] [address] Eric Redmond RPH Social History Tobacco Use [...] Contact Info) Description 11/24/2023 10:00 EDT Telemedicine [facility] Rheumatology & Immunology - [address] [phone] Harsh Malloy, CLOD PULLER 111 [facility], [address] [place] [phone] documented as of this encounter Visit Diagnoses Not on filedocumented in this encounter Care Teams Caustic Purification Operator Relationship Specialty Start Date End Date Kayleigh Mallory FNP 26 [facility] [address] [place] [phone] PCP - General 02/04/19 documented as of this encounter
--- OUTSIDE RECORDS SUMMARY | 2023-11-13 17:01 | XMS_ITS | Encounter Summary ---
Author Organization [facility] Address [address] [place] [address] Care Team Providers Care Surgical Aide Name Role Phone Kayleigh Mallory WILFREDO Primary Care Provider [phone] Encounter Details Date Type Department Care Team (Latest Contact Info) Description 02/24/2023 Specialty Pharmacy [facility] Ambulatory Pharmacy - [facility] [address] [place], [place] [address] Yamile Plaza RPH Clinical Follow-up (2x annually) for Rheumatology, Refill Coordination Outreach (1 time occurrence) for Rheumatology Social History Tobacco Use Types [...] as of this encounter Progress Notes * Xnader Betancur - 02/24/2023 1407 EDT Specialty Pharmacy Documentation Medication: Humira Clinic: [facility] Rheum Reason for Encounter: Outreach Notes: Refill requested. Follow up date: 02/24/2023 Follow up reason: Outreach * Galo Elias RPH - 02/24/2023 1407 EDT Joint pain slightly worse in cold, but not inflammatory No changes to skin, still clear. Have not had to use topical steroids - last used >2 years. Is using halobetasol ointment around vaginal area per OBGYN for irritation/rash attributed to panty liners. Med and allergy list updated. No other changes to medications. Galo Elias PharmD (he/him) Ambulatory Pharmacist Clinician Rheumatology 03/11/2023 documented in this encounter Miscellaneous Notes * Addendum Note - Galo Elias RPH - 02/24/2023 140 EDTAddended by: GALO ELIAS on: 03/11/2023 13:50 Modules accepted: Orders documented in this encounter Plan of Treatment Upcoming Encounters Date Type Department Care Team (Late st Contact Info) Description 11/24/2023 10:00 EDT Telemedicine [facility] Rheumatology & Immunology - [address] [phone] Harsh Malloy NP 111 [facility], [address] [place] [address] documented as of this encounter Visit Diagnoses Not on filedocumented in this encounter Historical Medications * This list may reflect changes made after this encounter. Medication Sig Dispensed Refills Start Date End Date halobetasol (ULTRAVATE) 0.05 % ointment Apply topically daily. As needed for vaginal skin irritation per OBGYN 04/23/2022 estradioL (ESTRACE) 0.01 % (0.1 mg/gram) vaginal cream Place 1 g vaginally three times a week. Mon, Wed, Fri 01/02/2023 psyllium husk, with sugar, (METAMUCIL, WITH SUGAR,) 3.4 gram packetIndications:alma deliai pation Take 2 Packets by mouth daily. added in this encounter Care Teams Surgical Aide Relationship Specialty Start Date End Date Kayleigh Mallory FNP [address] [place] [phone] PCP - General 02/04/19 documented as of this encounter
--- OUTSIDE RECORDS SUMMARY | 2023-11-13 17:01 | XMS_ITS | Encounter Summary ---
Author Organization [facility] Address [address] [place] [address] Care Team Providers Care Clean Rice Grader And Reel Tender Name Role Phone Kayleigh Mallory WILFREDO Primary Care Provider [phone] Encounter Details Date Type Department Care Team ([facility] Contact Info) Description 07/02/2022 Specialty Pharmacy [facility] Ambulatory Pharmacy - [facility] [address] [place], [place] [address] Damaris Torrez RPH Social History Tobacco Use [...] Upcoming Encounters Date Type Department Care Team ([facility] Contact Info) Description 11/24/2023 10:00 EDT Telemedicine [facility] Rheumatology & Immunology - [address] [address] Harsh Malloy, MEDIA RELATIONS ASSOCIATE 111 [facility], [address] [place] [phone] documented as of this encounter Visit Diagnoses Not on filedocumented in this encounter Care Teams Clean Rice Grader And Reel Tender Relationship Specialty Start Date End Date Kayleigh Mallory FNP 26 [facility] [address] [place] [phone] PCP - General 02/04/19 documented as of this encounter
--- OUTSIDE RECORDS SUMMARY | 2023-11-13 17:01 | XMS_ITS | Encounter Summary ---
Author Organization [facility] Address [address] [place] [address] Care Team Providers Care Stone Unloader Name Role Phone Kayleigh Mallory WILFREDO Primary Care Provider [phone] Encounter Details Date Type Department Care Team (Late st Contact Info) Description 11/27/2022 Orders [address] [facility] [address] [place] [address] Augustina Rivera, RN [address] [place] [address] Social History Tobacco Use Types Packs/Day Years [...] [facility] Rheumatology & Immunology - [facility] [address] [place], [place] [address] Harsh Malloy, MANAGER PACKAGE 111 [facility], [address] [place] [phone] documented as of this encounter Visit Diagnoses Not on filedocumented in this encounter Care Teams Stone Unloader Relationship Specialty Start Date End Date Kayleigh Mallory FNP 26 [facility] [address] [place] [phone] PCP - General 02/04/19 documented as of this encounter
--- OUTSIDE RECORDS SUMMARY | 2023-11-13 17:01 | XMS_ITS | Encounter Summary ---
Author Organization [facility] Address [address] [place] [address] Care Team Providers Care Facing Slitter Name Role Phone Kayleigh Mallory WILFREDO Primary Care Provider [phone] Encounter Details Date Type Department Care Team (Late st Contact Info) Description 10/14/2022 Specialty Pharmacy [facility] Amb[facility] - [facility] [address] [place], [place] [address] Yamile Plaza RPH Social History Tobacco Use [...] Contact Info) Description 11/24/2023 10:00 EDT Telemedicine [facility] Rheumatology & Immunology - [address] [phone] Harsh Malloy, LEAD SUSTAINABILITY SPECIALIST 111 [facility], [address] [place] [phone] documented as of this encounter Visit Diagnoses Not on filedocumented in this encounter Care Teams Facing Slitter Relationship Specialty Start Date End Date Kayleigh Mallory FNP 26 [facility] [address] [place] [phone] PCP - General 02/04/19 documented as of this encounter
--- OUTSIDE RECORDS SUMMARY | 2023-11-13 17:01 | XMS_ITS | Encounter Summary ---
Author Organization [facility] Address [address] [place] [address] Care Team Providers Care Prepress Manager Name Role Phone Kayleigh Mallory WILFREDO Primary Care Provider [phone] Encounter Details Date Type Department Care Team (Late st Contact Info) Description 04/15/2022 Specialty Pharmacy [facility] Ambulatory Pharmacy - [facility] [address] [place], [place] [address] Damaris Torrez RPH Social History Tobacco Use [...] encounter Progress Notes * Migdalia Mejia - 04/15/2022 0940 EST [facility] Specialty Pharmacy Delivery Information Hours: Friday-Friday 8:30am - 5:00pm *Pharmacist available library information technician 18/11 Delivery Service: [employer]Ex Delivery Window: None Specified Date of Delivery: Fri (04/24) Tracking # : [id number] documented in this encounter Plan of Treatment Upcoming Encounters Date Type Department Care Team (Late st Contact Info) Description 11/24/2023 10:00 EDT Telemedicine [facility] Rheumatology & Immunology - [address] [address] Harsh Malloy, ELBERT 111 [facility], [address] [place] [address] documented as of this encounter Visit Diagnoses Not on filedocumented in this encounter Care Teams Prepress Manager Relationship Specialty Start Date End Date Kayleigh Mallory FNP 26 [facility] [address] [place] [phone] PCP - General 02/04/19 documented as of this encounter
--- OUTSIDE RECORDS SUMMARY | 2023-11-13 17:01 | XMS_ITS | Encounter Summary ---
Author Organization [facility] Address [address] [place] [address] Care Team Providers Care Archivist Military History Name Role Phone Kayleigh Mallory WILFREDO Primary Care Provider [phone] Encounter Details Date Type Department Care Team ([facility] Contact Info) Description 05/20/2022 Specialty Pharmacy [facility] Ambulatory Pharmacy - [facility] [address] [place], [place] [address] Damaris Torrez RPH Social History Tobacco Use [...] Upcoming Encounters Date Type Department Care Team ([facility] Contact Info) Description 11/24/2023 10:00 EDT Telemedicine [facility] Rheumatology & Immunology - [address] [address] Harsh Malloy, MAINFRAME SYSTEMS ADMINISTRATOR 111 [facility], [address] [place] [phone] documented as of this encounter Visit Diagnoses Not on filedocumented in this encounter Care Teams Archivist Military History Relationship Specialty Start Date End Date Kayleigh Mallory FNP 26 [facility] [address] [place] [phone] PCP - General 02/04/19 documented as of this encounter
--- OUTSIDE RECORDS SUMMARY | 2023-11-13 17:01 | XMS_ITS | Encounter Summary ---
Author Organization [facility] Address [address] [place] [address] Care Team Providers Care Hand I Blocker Name Role Phone Kayleigh Mallory WILFREDO Primary Care Provider [phone] Encounter Details Date Type Department Care Team ([facility] Contact Info) Description 11/02/2021 Specialty Pharmacy [facility] - [facility] [address] [place] [address] Damaris Torrez RPH Social History Tobacco Use [...] EDT Telemedicine [facility] Rheumatology & Immunology - [address] [phone] Harsh Malloy, UNDERWRITING DIRECTOR 111 [facility], [address] [place] [phone] documented as of this encounter Visit Diagnoses Not on filedocumented in this encounter Care Teams Hand I Blocker Relationship Specialty Start Date End Date Kayleigh Mallory FNP 26 [facility] [address] [place] [phone] PCP - General 02/04/19 documented as of this encounter
--- OUTSIDE RECORDS SUMMARY | 2023-11-13 17:01 | XMS_ITS | Encounter Summary ---
Author Organization [facility] Address [address] [place] [address] Care Team Providers Care Etl Informatica Architect Name Role Phone Kayleigh Mallory WILFREDO Primary Care Provider [phone] Encounter Details Date Type Department Care Team ([facility] Contact Info) Description 08/15/2021 Specialty Pharmacy [facility] Ambulatory Pharmacy - [facility] [address] [place] [address] Damaris Torrez RPH Social History Tobacco Use [...] Description 11/24/2023 10:00 EDT Telemedicine [facility] Rheumatology & Immunology - [address] [phone] Harsh Malloy, GLASSWARE SELECTOR 111 [facility], [address] [place] [phone] documented as of this encounter Visit Diagnoses Not on filedocumented in this encounter Care Teams Etl Informatica Architect Relationship Specialty Start Date End Date Kayleigh Mallory FNP 26 [facility] [address] [place] [phone] PCP - General 02/04/19 documented as of this encounter
--- OUTSIDE RECORDS SUMMARY | 2023-11-13 17:01 | XMS_ITS | Encounter Summary ---
Author Organization [facility] Address [address] [place] [address] Care Team Providers Care Sand Wheeler Name Role Phone Kayleigh Mallory WILFREDO Primary Care Provider [phone] Reason for Visit * Reason Comments Medications Refill Encounter Details Date Type Department Care Team (Late st Contact Info) Description 11/03/2022 Refill [facility] Rheumatology & Immunology - [facility] [address] [place], [place] [address] Harsh Malloy, RAIL SIGNAL MECHANIC 111 [facility], [address] [place] [address] Medications Refill Social History Tobacco [...] NEEDED EVERY 3 MONTHS 120 Tablet 1 11/04/2022 03/21/2023 documented in this encounter Plan of Treatment Upcoming Encounters Date Type Department Care Team (Late st Contact Info) Description 11/24/2023 10:00 EDT Telemedicine [facility] Rheumatology & Immunology - [address] [phone] Harsh Malloy NP 111 [facility], [address] [place] [phone] documented as of this encounter Visit Diagnoses Not on filedocumented in this encounter Discontinued Medications Medication Sig Discontinue Reason Start Date End Da te methotrexate 2.5 mg tablet TAKE 10 TABLETS BY MOUTH WEEKLY LABS ARE NEEDED EVERY 3 MONTHS 08/22/2022 11/04/2022 documented as of this encounter Care Teams Sand Wheeler Relationship Specialty Start Date End Date Kayleigh Mallory FNP [address] [place] [address] [address] [place] [address] PCP - General 02/04/19 documented as of this encounter
--- OUTSIDE RECORDS SUMMARY | 2023-11-13 17:01 | XMS_ITS | Encounter Summary ---
Author Organization [facility] Address [address] [place] [address] Care Team Providers Care Plant Floor Automation Manager Name Role Phone Kayleigh Mallory WILFREDO Primary Care Provider Encounter Details Date Type Department Care Team (Late st Contact Info) Description 01/31/2022 Specialty Pharmacy [facility] Amb[facility] Pharmacy - [facility] [address] [place], [place] [address] Damaris Torrez RPH Social History Tobacco Use [...] encounter Progress Notes * Mirtha Holbrook - 01/31/2022 112 EDT Specialty Pharmacy Documentation Medication: Humira Clinic: Rheum Reason for Encounter: Outreach Notes: Refill Payable on or after 02/03/22 Follow up date: 02/03 Follow up reason: Outreach * Iram Gates - 01/31/2022 112 EDT [facility] Specialty Pharmacy Delivery Information Hours: Friday-Friday 8:30am - 5:00pm *Pharmacist available invisible braces orthodontist 18/11 Delivery Service: [employer]Ex Delivery Window: None Specified Date of Delivery: 02/13/22 Tracking # : [id number] documented in this encounter Plan of Treatment Upcoming Encounters Date Type Department Care Team (Late st Contact Info) Description 11/24/2023 10:00 EDT Telemedicine [facility] Rheumatology & Immunology - [address] [address] Harsh Malloy, ELBERT 111 [facility], [address] [place] [phone] documented as of this encounter Visit Diagnoses Not on filedocumented in this encounter Care Teams Plant Floor Automation Manager Relationship Specialty Start Date End Date Kayleigh Mallory FNP 26 [facility] [address] [place] [address] PCP - General 02/04/19 documented as of this encounter
--- OUTSIDE RECORDS SUMMARY | 2023-11-13 17:01 | XMS_ITS | Encounter Summary ---
Author Organization [facility] Address [address] [place] [address] Care Team Providers Care It Business Process Architect Name Role Phone Kayleigh Mallory WILFREDO Primary Care Provider [phone] Encounter Details Date Type Department Care Team (Late st Contact Info) Description 07/22/[address] [facility] - [facility] [address] [place], [place] [address] Damaris Torrez RPH Social History Tobacco Use [...] as of this encounter Progress Notes * Gurpreet Espitia - 07/22/2022 1350 EDT Specialty Pharmacy Documentation Medication: Humira Clinic: [facility] Reason for Encounter: Refill Notes: RTS until 07/25 Follow up date: 07/25 Follow up reason: Refill documented in this encounter Plan of Treatment Upcoming Encounters Date Type Department Care Team (Late st Contact Info) Description 11/24/2023 10:[address] [facility] Rheumatology & Immunology - [facility] [address] [place], [place] [address] Harsh Malloy NP 111 [facility], [address] [place] [phone] documented as of this encounter Visit Diagnoses Not on filedocumented in this encounter Care Teams It Business Process Architect Relationship Specialty Start Date End Date Kayleigh Mallory FNP [address] [place] [address] [address] [place] [address] PCP - General 02/04/19 documented as of this encounter
--- OUTSIDE RECORDS SUMMARY | 2023-11-13 17:01 | XMS_ITS | Encounter Summary ---
Author Organization [facility] Address [address] [place] [address] Care Team Providers Care Telephoto Installer Name Role Phone Kayleigh Mallory WILFREDO Primary Care Provider [phone] Encounter Details Date Type Department Care Team (Late st Contact Info) Description 03/17/2022 Lab Requisition [facility] Pathology & Laboratory Medicine - [address] [address] Outr Resulting Lab, Provider Social History Tobacco Use Types Packs/Day Years [...] [facility] Rheumatology & Immunology - [facility] [address] [place], [place] [address] Harsh Malloy NP 111 [facility], [facility], [address] [place] [address] documented as of this encounter Procedures Procedure Name Priority Date/Time Associated Diagnosis Comments ZZCOVID-19 TEST [facility] PCR Today 03/16/2022 12:15 EST COVID-19 TESTING Routine 03/16/2022 12:1 5 EST documented in this encounter Results * COVID-19 TEST [facility] PCR (03/16/2022 12:15 EST) Swab 03/16/2022 12:1 5 EST 03/17/2022 17:28 EST Provider Outr Resulting Lab MICROBIOLOGY - GENERAL ORDERABLES [facility] [address] [place] [address] * COVID-19 TESTING (03/16/2022 12:15 EST) COVID-19 rt-PCR Result Negative Negative 03/18/2022 12:57 EST [facility] Comment: This test has not been FDA cleared or approved. This test has been authorized by FDA under an EUA for use by authorized laboratories. This test has been authorized only for detection of nucleic acid from 2019-nCoV, not for any other viruses or pathogens. This test is only authorized for the duration of the declaration that circumstances exist justifying the authorization of emergency use of in vitro diagnostic tests for detection and/or diagnosis of 2019-nCoV under section 564(b)(1) of Act, 21 U.S.C ?? 360bbb-3(b) (1), unless the authorization is terminated or revoked sooner. Negative results do not preclude 2019-nCoV infection and should not be used as the sole basis for treatment or other patient management decisions. Negative results must be combined with clinical observations, patient history, and epidemiological information. Performed on the [employer] [place] Fusion instrument Performing Lab [place] [facility] 03/18/2022 12:57 EST [facility] Swab 03/16/2022 12:1 5 EST 03/17/2022 17:28 EST Provider Outr Resulting Lab MICROBIOLOGY - GENERAL ORDERABLES [facility] [address] [place] [address] documented in this encounter Visit Diagnoses Not on filedocumented in this encounter Care Teams Telephoto Installer Relationship Specialty Start Date End Date Kayleigh Mallory FNP [address] [place] [phone] PCP - General 02/04/19 documented as of this encounter
--- OUTSIDE RECORDS SUMMARY | 2023-11-13 17:01 | XMS_ITS | Encounter Summary ---
Author Organization [facility] Address [address] [place] [address] Care Team Providers Care Poultry Picking Machine Tender Name Role Phone Kayleigh Mallory WILFREDO Primary Care Provider [phone] Reason for Visit * Reason Onset Date Comments COVID-19 05/21/2021 Encounter Details Date Type Department Care Team (Late st Contact Info) Description 05/21/2021 Telephone [facility] Rheumatology & Immunology - [facility] [address] [place], [place] [phone] Harsh Malloy, MICROFILMING DOCUMENT PREPARER 111 [facility], [address] [place] [address] COVID-19 Social History Tobacco Use Types Packs/Day Years [...] encounter Miscellaneous Notes * Telephone Encounter - Damaris Torrez RPH - 05/22/2021 1521 EST Called to return Iris' call, had to leave a voicemail. Left voicemail stating that following up An Mellissa TEJEDA was able to touch base with her, so all set but if she needed anything else tocall the specialty pharmacy. 05/22/21 * Telephone Encounter - Harsh Malloy APRN - 05/22/2021 1426 EST Spoke to pt, covid positive Apr 30, 2021, Now mostly resolved but still has an intermittent cough worse in the afternoon. Pt is back on humira. Reviewed CDC recommendation for 4th covid vaccine 5months after #3 Hold humira 1-2 weeks, then restart. There maybe new recommendations by the time she is due. She will f/u with specialty pharmacy. * Telephone Encounter - Damaris Torrez RPH - 05/21/2021 1247 EST Patient reported to [facility], today 05/21/21, that she contracted Covid and held 1 dose of Humira. Left voicemail for Iris, requesting call back at specialty pharmacy line. Calling to obtain more information regarding Covid positivity. Damaris Torrez, PharmD Ambulatory Pharmacist - Specialty Pharmacy [phone] 05/21/2021 Adden//: 2nd phonecall attempt, had to leave voicemail. 05/21/21 documented in this encounter Plan of Treatment Upcoming Encounters Date Type Department Care Team (Late st Contact Info) Description 11/24/2023 10:00 EDT Telemedicine [facility] Rheumatology & Immunology - [facility] [address] [place] [address] Harsh Malloy, MICROFILMING DOCUMENT PREPARER 111 [facility], [address] [place] [phone] documented as of this encounter Visit Diagnoses Not on filedocumented in this encounter Care Teams Poultry Picking Machine Tender Relationship Specialty Start Date End Date Kayleigh Mallory FNP 26 [facility] [address] [place] [phone] PCP - General 02/04/19 documented as of this encounter
--- OUTSIDE RECORDS SUMMARY | 2023-11-13 17:01 | XMS_ITS | Encounter Summary ---
Author Organization [facility] Address [address] [place] [address] Care Team Providers Care Director Of Accreditation Name Role Phone Kayleigh Mallory WILFREDO Primary Care Provider [phone] Reason for Visit * Reason Onset Date Comments Medications Refill 02/24/2023 Encounter Details Date Type Department Care Team (Late st Contact Info) Description 02/24/2023 Telephone [facility] Rheumatology & Immunology - [facility] [address] [place], [place] [phone] Harsh Malloy, FRANCHISE FIELD CONSULTANT 111 [facility], [facility] [address] [place] [address] Medications Refill Social History Tobacco [...] every 14 days. Specialty. 6 Kit 1 02/24/2023 08/18/2023 documented in this encounter Miscellaneous Notes * Telephone Encounter - Xander Betancur - 02/24/2023 1415 EDT Medication Refill Request Medication: Moira Patient needs medication by: 02/24/2023 Scheduled outreach date: 02/24/2023 Pharmacy: [facility] [address] Next appt: 03/03/2023 documented in this encounter Plan of Treatment Upcoming Encounters Date Type Department Care Team (Late st Contact Info) Description 11/24/2023 10:00 EDT Telemedicine [facility] Rheumatology & Immunology - [address] [address] Harsh Malloy NP 111 [facility], [address] [place] [phone] documented as of this encounter Visit Diagnoses Diagnosis Psoriatic arthropathy (HCC-CMS)- Primary Psoriatic arthropathy documented in this encounter Discontinued Medications Medication Sig Discontinue Reason Start Date End Da te adalimumab (HUMIRA,CF, PEN) 40 mg/0.4 mL pen Inject 0.4 mL into the skin every 14 days. Specialty. Reorder 09/13/2022 02/24/2023 documented as of this encounter Care Teams Director Of Accreditation Relationship Specialty Start Date End Date Kayleigh Mallory FNP [address] [place] [address] [address] [place] [phone] PCP - General 02/04/19 documented as of this encounter
--- OUTSIDE RECORDS SUMMARY | 2023-11-13 17:01 | XMS_ITS | Encounter Summary ---
Author Organization [facility] Address [address] [place] [address] Care Team Providers Care Milk House Worker Name Role Phone Kayleigh Mallory WILFREDO Primary Care Provider [phone] Reason for Visit * Reason Onset Date Comments COVID-19 03/11/2022 Encounter Details Date Type Department Care Team (Late st Contact Info) Description 03/11/2022 Telephone [facility] Rheumatology & Immunology - [facility] [address] [place], [place] [phone] Harsh Malloy, MANAGER HUMAN RESOURCES 111 [facility], [address] [place] [address] COVID-19 Social History Tobacco Use [...] encounter Miscellaneous Notes * Telephone Encounter - China Penn RN - 03/11/2022 1645 EST Spoke with pt R/T MD and pharmacist response. Her cough first started on 03/02/22, ten days ago. Not a candidate for Paxlovid. She will lay low for a couple more days and then [facility] ret[facility] her. She agreed to go to ER if symptoms worsen or if develops fever or SOB. * Telephone Encounter - Price Flores MD - 03/11/2022 1548 EST Tried calling patient x4 times to clarify exactly how many days she has had the symptoms and if shehas other symptoms like shortness or breath, low pulse oximetry etc. I couldn't reach patient on phone. If symptoms have been exactly the same and if the duration of symptoms has been >5 days, then I wouldn't prescribe paxlovid, however if the duration is 5 or less days, she may qualify. If she has symptoms appearing to be severe COVID like significant shortness of breath, low oxygen saturation then she should go to ER and wouldn't qualify for Paxlovid. Price Flores MD * Telephone Encounter - China Penn RN - 03/11/2022 1217 EST Pt has had a nasty cough x about one week. She tested for COVID three times last week as she was going away but her tests were always negative. Home today with persistent productive cough. Had a COVID test at PCP office and it was positive. PCP advised pt call us to discuss Paxlovid.She was wondering if it's too late based on when her symptoms started. Fully vaccinated and got Evusheld in mid November. Please advise. If you want her to start Paxlovid, she would like to get at [facility] in [facility], I advised pt to hold her Humira and her methotrexate temporarily pending two weeks with no symptoms. * Telephone Encounter - Ingrid Lozada - 03/11/2022 1127 EST Patient tested positive today for covid at doctors office. Patient is wondering if she should take Plaxovid. Please advise documented in this encounter Plan of Treatment Upcoming Encounters Date Type Department Care Team (Late st Contact Info) Description 11/24/2023 10:00 EDT Telemedicine [facility] Rheumatology & Immunology - [facility] [address] [place], [place] [address] Harsh Malloy NP 111 [facility], [address] [place] [phone] documented as of this encounter Visit Diagnoses Not on filedocumented in this encounter Care Teams Milk House Worker Relationship Specialty Start Date End Date Kayleigh Mallory FNP [address] [place] [address] [address] [place] [phone] PCP - General 02/04/19 documented as of this encounter
--- OUTSIDE RECORDS SUMMARY | 2023-11-13 17:01 | XMS_ITS | Encounter Summary ---
Author Organization [facility] Address [address] [place] [address] Care Team Providers Care Rf Microwave Engineer Name Role Phone Kayleigh Mallory WILFREDO Primary Care Provider [phone] Encounter Details Date Type Department Care Team (Late st Contact Info) Description 01/31/2023 Specialty Pharmacy [facility] Ambulatory Pharmacy - [facility] [address] [place], [place] [address] Yamile Plaza RPH Social History Tobacco Use [...] as of this encounter Progress Notes * Kim Huang 01/31/2023 1328 EDT Chris RTS until 02/01, pushing outreach documented in this encounter Plan of Treatment Upcoming Encounters Date Type Department Care Team (Late st Contact Info) Description 11/24/2023 10:00 EDT Telemedicine [facility] Rheumatology & Immunology - [facility] [address] [place], [place] [address] Harsh Malloy, ELBERT 111 [facility], [address] [place] [address] documented as of this encounter Visit Diagnoses Not on filedocumented in this encounter Care Teams Rf Microwave Engineer Relationship Specialty Start Date End Date Kayleigh Mallory FNP 26 [facility] [address] [place] [phone] PCP - General 02/04/19 documented as of this encounter
--- OUTSIDE RECORDS SUMMARY | 2023-11-13 17:01 | XMS_ITS | Encounter Summary ---
Author Organization [facility] Address [address] [place] [address] Care Team Providers Care Bench Mover Name Role Phone Kayleigh Mallory WILFREDO Primary Care Provider [phone] Encounter Details Date Type Department Care Team (Late st Contact Info) Description 02/26/2022 Telephone [facility] Rheumatology & Immunology - [facility] [address] [place], [place] [phone] Harsh Malloy, ELBERT 111 [facility], [address] [place] [address] Social History Tobacco Use Types Packs/Day Years [...] Contact Info) Description 11/24/2023 10:00 EDT Telemedicine [facility] Rheumatology & Immunology - [address] [address] Harsh Malloy, RADIOLOGIC TECHNOLOGIST MAMMOGRAM 111 [facility], [address] [place] [phone] documented as of this encounter Visit Diagnoses Not on filedocumented in this encounter Care Teams Bench Mover Relationship Specialty Start Date End Date Kayleigh Mallory FNP 26 [facility] [address] [place] [phone] PCP - General 02/04/19 documented as of this encounter
--- OUTSIDE RECORDS SUMMARY | 2023-11-13 17:01 | XMS_ITS | Encounter Summary ---
Author Organization [facility] Address [address] [place] [address] Care Team Providers Care Mobile Ui Designer Name Role Phone Kayleigh Mallory WILFREDO Primary Care Provider [phone] Reason for Referral * Consult (See Order Priority) - Authorized Specialty Diagnoses / Procedures Referred By Twyla love Referred To Contact Pharmacy Diagnoses Psoriasis with arthropathy (HCC-CMS) Harsh Malloy, ELBERT 111 [facility], [address] [place] [address] [facility] [address] [place] [address] Referral ID Status Reason Start Date Expiration Date Visits Requested Visits Authorized [id number] Authorized Specialty Services Required 12/06/2021 1 1 Question Answer PA Type: Re-auth Medication to be Prior Authorized: Humira 40 mg pen subQ every 14 days Comments The purpose of this request is to inform precertification staff that the requested service needs to be reviewed for prior-authorization. Reason for Visit * Reason Onset Date Comments Prior Auth, Medication 12/06/2021 Humira (r e-auth) Encounter Details Date Type Department Care Team ([facility] Contact Info) Description 12/06/2021 Telephone [facility] Rheumatology & Immunology - [facility] [address] [place] [address] Harsh Malloy NP 111 [facility], [address] [place] [phone] Prior Auth, Medication (Humira (re-auth)) Social History Tobacco Use Types Packs/Day Years [...] encounter Miscellaneous Notes * Telephone Encounter - Silke Jeong - 12/06/2021 1637 EDT Prior Authorization Approval Medication: Humira CF 40mg/0.4ml, inject every 14 days Insurance Name: [employer] Insurance Type: Commercial Approval Dates: 12/06/2021 to 12/06/2022 Authorization Number: [id number] Benefits Information: [facility] able to fill? : Yes Required Pharmacy: N/A Additional Info/Other Notes: Prior Authorization Submission Process - Routine Medication: Humira CF 40mg/0.4ml, inject every 14 days Insurance: [employer] Insurance Type: Commercial Date PA Request Received: 12/06/2021 PA Submission Date: 12/06/2021 CMM Trammell: [id number] Notes: Submitted by: Silke Phone: [phone] * Telephone Encounter - Kamala Hull - 12/06/2021 2139 EDT SPRX Request for PA/Funding Drug Name: Humira Next Injection Date: Unknown--call out to PT RX Insurance: [facility] Qty Remaining: Unknown PA Required: Yes Funding Needed: No documented in this encounter Plan of Treatment Upcoming Encounters Date Type Department Care Team (Late st Contact Info) Description 11/24/2023 10:00 EDT Telemedicine [facility] Rheumatology & Immunology - [address] [address] Harsh Malloy NP 111 [facility], [address] [place] [phone] Scheduled Referrals Name Type Priority Associated Diagnoses Order Schedule AMB CONS/FOLLOW UP SPECIALTY PHARMACY MEDICATION PRIOR AUTHORIZATION REQUEST Outpatient Referral Routine/Next Available Psoriasis with arthropathy (HCC-CMS) (HCC) (HCC-CMS) Expected: 12/13/2021 (Approximate), Expires: 12/06/2022 documented as of this encounter Visit Diagnoses Diagnosis Psoriasis with arthropathy (HCC-CMS)- Primary Psoriatic arthropathy documented in this encounter Care Teams Mobile Ui Designer Relationship Specialty Start Date End Date Kayleigh Mallory FNP [address] [place] [address] [address] [place] [phone] PCP - General 02/04/19 documented as of this encounter
--- OUTSIDE RECORDS SUMMARY | 2023-11-13 17:01 | XMS_ITS | Encounter Summary ---
Author Organization [facility] Address [address] [place] [address] Care Team Providers Care County Supervisor Name Role Phone Kayleigh Mallory WILFREDO Primary Care Provider [phone] Encounter Details Date Type Department Care Team (Late st Contact Info) Description 11/07/2022 Specialty Pharmacy [facility] Ambulatory Pharmacy - [facility] [address] [place], [place] [address] Damaris Torrez RPH Social History Tobacco Use [...] this encounter Progress Notes * Kim Huang - 11/07/2022 1155 EDT RTS until 11/09 documented in this encounter Plan of Treatment Upcoming Encounters Date Type Department Care Team (Late st Contact Info) Description 11/24/2023 10:00 EDT Telemedicine [facility] Rheumatology & Immunology - [facility] [address] [place], [place] [address] Harsh Malloy, SIGN SHOP SUPERVISOR 111 [facility], [address] [place] [phone] documented as of this encounter Visit Diagnoses Not on filedocumented in this encounter Care Teams County Supervisor Relationship Specialty Start Date End Date Kayleigh Mallory FNP 26 [facility] [address] [place] [phone] PCP - General 02/04/19 documented as of this encounter
--- OUTSIDE RECORDS SUMMARY | 2023-11-13 17:01 | XMS_ITS | Encounter Summary ---
Author Organization [facility] Address [address] [place] [address] Care Team Providers Care Pilot Plant Operator Name Role Phone Kayleigh Mallory WILFREDO Primary Care Provider [phone] Reason for Visit * Reason Comments Follow-up Encounter Details Date Type Department Care Team (Late st Contact Info) Description 08/28/2022 15:00 EDT Office Visit [facility] Rheumatology & Immunology - [address] [phone] Harsh Malloy, ELECTRICAL ENGINEERING INTERN [address] [facility], [facility] [address] [place] [address] Psoriatic arthropathy ([facility]) (Primary Dx); Encounter for long-term (current) use of medications Social History Tobacco Use Types Packs/Day Years Used Date Smoking Tobacco: Never Smokeless Tobacco: Never Tobacco Cessation:Counseling Given: Not Answered Alcohol Use Standard Drinks/Week Comments Yes 0 [...] Sign Reading Time Taken Comments Blood Pressure 108/74 08/28/2022 1443 EDT Pulse - - Temperature - - Respiratory Rate - - Oxygen Saturation - - Inhaled Oxygen Concentration - - Weight 68.5 kg (151 lb) 08/28/2022 1443 EDT Height 167.6 cm (5' 6) 08/28/2022 1443 EDT Body Mass Index 24.37 08/28/2022 1443 EDT documented in this encounter Functional Status [...] * Patient Instructions* Harsh Malloy NP - 08/28/2022 15:00 EDT 1 Continue current meds. 2. Labs every 3-4 months 3. Recommend covid bivariant #2 2 months after #1, hold methotrexate 1-2 weeks after then restart Then again fall and with flu vaccine 4. F/ u 6 months in person Can try plantar pads Aetrex documented in this encounter Progress Notes * Harsh Malloy NP - 08/28/2022 1500 EDT Images from the original note were [...] ??? Psoriasis ??? Psoriasis with arthropathy (HCC-CMS) ??? History of COVID-19 Past Medical History: [...] ZESTRIL) 10 mg tablet ??? loratadine-pseudoephedrine (CLARITIN-D 24-HOUR) 10-240 mg per tablet ??? methotrexate 2.5 mg tablet ??? montelukast (SINGULAIR) 10 mg tablet ??? Multivitamins with Minerals Tab ??? oxybutynin (DITROPAN) 5 mg tablet No current facility-administered medications for this visit. ROS - SEE HPI I reviewed the 10 point ROS performed by the nurse which is as documented in Prism. Objective: BP 108/74 (BP Cuff Location: Right arm, BP Patient Position: Sitting, BP Cuff Sizes: Adult, regular) Ht 167.6 cm (66) Wt 68.5 kg (151 lb) BMI 24.37 kg/m?? PHYSICAL EXAM: ?? General: No acute [...] Appropriate range of motion present. ?? LABS: RAPI 3 Summary Functional S tatus: Pain Tolerance: Global Estimate: Score: Interpretation: ASSESSMENT: 1. 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 Doing well on MTX 25mg po weekly and humira, no joint activity . Some MTP tenderness maybe from wearing sandals, she will try plantar pads 2. No psoriasis 3. Up to date on pneumonia, shingrix 4. Up to date on labs Labs every 3-4 months 5. Completed covid vaccine - pfizer 1-4 Pneumonia 13, pneumonia 23 and shingrix 6 pes planus - recommend arch supports No diagnosis found. PLAN: 1 Continue current meds. 2. Labs every 3-4 months 3. Recommend covid bivariant #2 2 months after #1, hold methotrexate 1-2 weeks after then restart Then again fall and with flu vaccine 4. F/ u 6 months in person Can try plantar pads Aetrex No diagnosis found. No orders of the defined types were placed in this encounter. Barriers to learning identified: No Patient verbalizes understanding and agrees with plan Yes I was directly supervised by: Dr. Gray. They were present in clinic and available for consult if needed. Harsh Malloy NP 08/28/2022 15:15 I spent a total of 30 minutes on the date of this encounter meeting with the patient and reviewing documentation/coordinating care as described in the above note.No procedures were performed at the time of the visit. documented in this encounter Plan of Treatment Upcoming Encounters Date Type Department Care Team (Late st Contact Info) Description 11/24/2023 10:00 EDT Telemedicine [facility] Rheumatology & Immunology - [facility] [address] [place] [address] Harsh Malloy NP [address] [facility], [address] [place] [phone] documented as of this encounter Visit Diagnoses Diagnosis Psoriatic arthropathy ([facility])- Primary Psoriatic arthropathy Encounter for long-term (current) use of medications Encounter for long-term (current) use of other medications documented in this encounter Care Teams Pilot Plant Operator Relationship Specialty Start Date End Date Kayleigh Mallory FNP [address] [facility] [address] [place] [phone] PCP - General 02/04/19 documented as of this encounter
--- OUTSIDE RECORDS SUMMARY | 2023-11-13 17:01 | XMS_ITS | Encounter Summary ---
Author Organization [facility] Address [address] [place] [address] Care Team Providers Care Mobile Architect Name Role Phone Kayleigh Mallory WILFREDO Primary Care Provider [phone] Reason for Visit * Reason Comments Medications Refill Encounter Details Date Type Department Care Team (Late st Contact Info) Description 05/20/2022 Refill [facility] Rheumatology & Immunology - [facility] [address] [place], [place] [phone] Harsh Malloy, PHARMACEUTICAL ASSISTANT 111 [facility], [address] [place] [address] Medications Refill Social History Tobacco [...] mouth once a week. Labs are needed lorena 40 Tablet 05/20/2022 06/20/2022 documented in this encounter Plan of Treatment Upcoming Encounters Date Type Department Care Team (Late st Contact Info) Description 11/24/2023 10:00 EDT Telemedicine [facility] Rheumatology & Immunology - [address] [phone] Harsh Malloy NP 111 [facility], [address] [place] [phone] documented as of this encounter Visit Diagnoses Diagnosis Psoriatic arthropathy ([facility])- Primary Psoriatic arthropathy Encounter for long-term (current) use of medications Encounter for long-term (current) use of other medications documented in this encounter Discontinued Medications Medication Sig Discontinue Reason Start Date End Da te methotrexate 2.5 mg tablet Take 10 Tablets by mouth once a week. 02/18/2022 05/20/2022 documented as of this encounter Care Teams Mobile Architect Relationship Specialty Start Date End Date Kayleigh Mallory FNP [address] [facility] [address] [place] [phone] PCP - General 02/04/19 documented as of this encounter
--- OUTSIDE RECORDS SUMMARY | 2023-11-13 17:01 | XMS_ITS | Encounter Summary ---
Author Organization [facility] Address [address] [place] [address] Care Team Providers Care Fur Blower Name Role Phone Kayleigh Mallory WILFREDO Primary Care Provider [phone] Reason for Visit * Reason Comments Medications Refill Encounter Details Date Type Department Care Team (Late st Contact Info) Description 02/19/2022 Refill [facility] Rheumatology & Immunology - [facility] [address] [place], [place] [phone] Harsh Malloy, SANITATION TRUCK CLEANER 111 [facility], [address] [place] [address] Medications Refill Social History Tobacco [...] Contact Info) Description 11/24/2023 10:00 EDT Telemedicine [facility] Rheumatology & Immunology - [address] [address] Harsh Malloy SANITATION TRUCK CLEANER 111 [facility], [address] [place] [phone] documented as of this encounter Visit Diagnoses Not on filedocumented in this encounter Care Teams Fur Blower Relationship Specialty Start Date End Date Kayleigh Mallory FNP 26 [facility] [address] [place] [phone] PCP - General 02/04/19 documented as of this encounter
--- OUTSIDE RECORDS SUMMARY | 2023-11-13 17:01 | XMS_ITS | Encounter Summary ---
Author Organization [facility] Address [address] [place] [address] Care Team Providers Care Steam Table Attendant Name Role Phone Kayleigh Mallory WILFREDO Primary Care Provider [phone] Reason for Visit * Reason Onset Date Comments Prior Auth, Medication 03/01/2022 Humira CF 40mg/0.4ml, inject every 14 days Encounter Details Date Type Department Care Team (Late st Contact Info) Description 03/01/2022 Telephone [facility] Rheumatology & Immunology - [address] [address] Harsh Malloy, JOB ANALYST 111 [facility], [address] [place] [address] Prior Auth, Medication (Humira CF 40mg/0.4ml, inject every 14 days) Social History Tobacco Use Types Packs/Day Years [...] * Telephone Encounter - Kelsi Garrido - 03/01/2022 1302 EDT Prior Authorization Approval Medication: Humira CF 40mg/0.4ml, inject every 14 days Insurance Name:[employer] Insurance Type: Commercial Approval Dates: 03/01/2022 Authorization Number: [id number] Benefits Information: [facility] able to fill? : Yes Required Pharmacy: [facility] Additional Info/Other Notes: Prior Authorization Submission Process - Routine Medication: Humira CF 40mg/0.4ml, inject every 14 days Insurance: [employer] Insurance Type: Commercial Date PA Request Received: 03/01/2022 PA Submission Date: 03/01/2022 CM Trammell: [id number] Notes none Submitted by: susan Phone: [phone] documented in this encounter Plan of Treatment Upcoming Encounters Date Type Department Care Team (Late st Contact Info) Description 11/24/2023 10:00 EDT Telemedicine [facility] Rheumatology & Immunology - [facility] [address] [place], [place] [address] Harsh Malloy NP 111 [facility], [address] [place] [phone] documented as of this encounter Visit Diagnoses Not on filedocumented in this encounter Care Teams Steam Table Attendant Relationship Specialty Start Date End Date Kayleigh Mallory FNP [address] [place] [phone] PCP - General 02/04/19 documented as of this encounter
--- OUTSIDE RECORDS SUMMARY | 2023-11-13 17:01 | XMS_ITS | Encounter Summary ---
Author Organization [facility] Address [address] [place] [address] Care Team Providers Care Executive Chairman Of The Board Name Role Phone Kayleigh Mallory WILFREDO Primary Care Provider [phone] Encounter Details Date Type Department Care Team ([facility] Contact Info) Description 03/12/2022 Specialty Pharmacy [facility] - [facility] [address] [place] [address] Damaris Torrez RPH Social History Tobacco Use [...] Upcoming Encounters Date Type Department Care Team ([facility] Contact Info) Description 11/24/2023 10:00 EDT Telemedicine [facility] Rheumatology & Immunology - [address] [address] Harsh Malloy, CARTON MACHINE OPERATOR 111 [facility], [address] [place] [phone] documented as of this encounter Visit Diagnoses Not on filedocumented in this encounter Care Teams Executive Chairman Of The Board Relationship Specialty Start Date End Date Kayleigh Mallory FNP 26 [facility] [address] [place] [phone] PCP - General 02/04/19 documented as of this encounter
--- OUTSIDE RECORDS SUMMARY | 2023-11-13 17:01 | XMS_ITS | Encounter Summary ---
Author Organization [facility] Address [address] [place] [address] Care Team Providers Care Statistics Tutor Name Role Phone Kayleigh Mallory WILFREDO Primary Care Provider [phone] Reason for Visit * Reason Comments Joint Pain pt has nothing new t o report Follow-up 6 months Encounter Details Date Type Department Care Team (Late st Contact Info) Description 08/28/2021 10:00 EDT Office Visit [facility] Rheumatology & Immunology - [facility] [address] [place], [place] [phone] Harsh Malloy, SENIOR BUSINESS INTELLIGENCE ANALYST 111 [facility], [address] [place] [address] Psoriatic arthritis (HCC-CMS) (HCC) (HCC-CMS) (Primary Dx); Long-term use of high-risk medication; Encounter for long-term (current) use of medications [...] Sign Reading Time Taken Comments Blood Pressure 110/72 08/28/2021 1020 EDT Pulse 68 08/28/2021 1020 EDT Temperature - - Respiratory Rate - - Oxygen Saturation - - Inhaled Oxygen Concentration - - Weight 67.6 kg (149 lb) 08/28/2021 1020 EDT Height 165.1 cm (5' 5) 08/28/2021 1020 EDT Body Mass Index 24.79 08/28/2021 1020 EDT documented in this encounter Functional [...] * Patient Instructions* Harsh Malloy NP - 08/28/2021 10:00 EDT 1. Continue current meds. 2. Labs every 3-4 months Per CDC guidelines recommend covid #4, 3 months after #3 Hold humira and methotrexate 1-2 weeks , after each vaccine, then restart. Optional 5th covid vaccine per CDC, 4 months after #4 3. Will submit you for QR Artist lottery, recommend this 3 months after your last covid vaccine 4. F/u 6 months in person documented in this encounter Ordered Prescriptions Prescription Sig Dispensed Refills Start Date End Da te methotrexate 2.5 mg tablet Take 10 Tablets by mouth once a week. 120 Tablet 08/28/2021 02/18/2022 folic acid (FOLVITE) 1 mg tablet Take 1 Tablet by mouth daily. 90 Tablet 3 08/28/2021 06/12/2022 adalimumab (HUMIRA,CF, PEN) 40 mg/0.4 mL pen Inject 0.4 mL into the skin every 14 days. Specialty. 6 Kit 1 08/28/2021 02/28/2022 documented in this encounter Progress Notes * Harsh Malloy NP - 08/28/2021 1000 EDT Patient ID: Reilly Hui is a 51 y.o. y.o. female Subjective: Chief Complaint: Joint Pain (pt has nothing new to report ) and Follow-up (6 months ) HPI: Here for follow up of psoriatic arthritis on humira and methotrexate. 01/13/2018 Sphyncerotomy Changes since last visit REVIEW OF SYSTEMS: [...] X Hand/Foot color change in cold X Poptent #1, -4 Holding MTX and humira post covid vaccine Had 2020 flu 01/18/21 Trying to loose wt eating better, working out at home and walking at lunch States toes have been swelling Patient Active Problem List Diagnosis ??? Psoriasis with arthropathy (HCC-CMS) ([facility]) ??? Encounter for long-term (current) use of medications ??? Hypertensive disorder ??? Environmental allergies ??? Psoriasis ??? Psoriasis with arthropathy (HCC-CMS) ([facility]) ??? History of COVID-19 Past Medical History: [...] which is as documented in Prism. Objective: Ht 165.1 cm (65) Wt 67.6 kg (149 lb) BMI 24.79 kg/m?? PHYSICAL EXAM: ?? General: No acute [...] for REILLY HUI ( ) as of 08/27/2021 10:46 Ref. Range 05/08/2021 00:00 Sodium, External Unknown 139 Potassium, External Unknown 4.2 Chloride, External Unknown 102 CO2, External Unknown 29.1 BUN, External Unknown 18 Creatinine, External Unknown 1.0 GFR, Calculated, External Unknown 58.22 Glucose, Serum, External Unknown 72 Total Protein, External Unknown 7.0 Albumin, External Unknown 3.7 ALT, External Unknown 22 AST, External Unknown 18 Bilirubin, Total, External Unknown 0.4 Alkaline Phosphatase, External Unknown 91 Calcium, External Unknown 8.6 WBC, External Unknown 7.36 RBC, External Unknown 4.54 Hemoglobin, External Unknown 12.9 HCT, External Unknown 40.3 MCH, External Unknown 28.4 MCV, External Unknown 88.8 MCHC, External Unknown 32.0 RDW-CV, External Unknown 17.0 PLT, External Unknown 238 ABS Neutrophils, External Unknown 5.14 Neutrophils, External Unknown 69.8 Lymphocytes, External Unknown 19.7 Eosinophils, External Unknown 1.2 Basophils, External Unknown 0.3 ABS Lymphs, External Unknown 1.45 ABS Monocytes, External Unknown 0.63 ABS Eosinophils, External Unknown 0.09 ABS Basophils, External Unknown 0.02 Monocytes, External Unknown 8.6 RAPID3 Summary Functional Status: Pain Tolerance: Global [...] planus - recommend arch supports Pfizer 1-4 Pt holding MTX and humira for 1-2 weeks post covid vaccine ( do this after each vaccine) Optional 5th covid vaccine per CDC, 4 months after #4 Pt placed in QR Artist lottery, reviewed EAU, Recommend 3 months after her 4th covid dose if possible Reviewed possible SE, injection site reaction, pain at injection site, bruising, OSEGUERA,fatigue, cough Encounter Diagnoses Name Primary? Psoriatic arthritis (HCC-CMS) (HCC) Yes ??? Long-term use of high-risk medication ??? Encounter for long-term (current) use of medications PLAN: 1. Continue current meds. 2. Labs every 3-4 months Per CDC guidelines recommend covid #4, 3 months after #3 Hold humira and methotrexate 1-2 weeks , after each vaccine, then restart. Optional 5th covid vaccine per CDC, 4 months after #4 3. Will submit you for QR Artist lottery, recommend this 3 months after your last covid vaccine 4. F/u 6 months in person 1. Psoriatic arthritis ([facility]) ([facility]) 2. Long-term use of high-risk medication 3. Encounter for long-term (current) use of medications No orders of the defined types were placed in this encounter. Barriers to learning identified: No Patient verbalizes understanding and agrees with plan Yes I was directly supervised by: Dr. Gray . They were present in clinic and available for consult if needed. Harsh Malloy NP 08/28/2021 10:21 I spent a total of 30 minutes on the date of this encounter meeting with the patient and reviewing documentation/coordinating care as described in the above note.No procedures were performed at the time of the visit. documented in this encounter Plan of Treatment Upcoming Encounters Date Type Department Care Team (Late st Contact Info) Description 11/24/2023 10:00 EDT Telemedicine [facility] Rheumatology & Immunology - [address] [phone] Harsh Malloy NP [address] [place] [address], [address] [place] [phone] documented as of this encounter Visit Diagnoses Diagnosis Psoriatic arthritis ([facility])- Primary Psoriatic arthropathy Long-term use of high-risk medication Encounter for long-term (current) use of medications Encounter for long-term (current) use of other medications documented in this encounter Discontinued Medications Medication Sig Discontinue Reason Start Date End Da te folic acid (FOLVITE) 1 mg tablet Take 1 Tablet by mouth daily. Reorder 10/23/2020 08/28/2021 adalimumab (HUMIRA,CF, PEN) 40 mg/0.4 mL pen Inject 0.4 mL into the skin every 14 days. Specialty. Reorder 03/01/2021 08/28/2021 methotrexate 2.5 mg tablet TAKE 10 TABLETS BY MOUTH ONCE A WEEK Reorder 08/20/2021 08/28/2021 documented as of this encounter Care Teams Statistics Tutor Relationship Specialty Start Date End Date Kayleigh Mallory FNP 26 [facility] [address] [place] [phone] PCP - General 02/04/19 documented as of this encounter
--- OUTSIDE RECORDS SUMMARY | 2023-11-13 17:01 | XMS_ITS | Encounter Summary ---
Author Organization [facility] Address [address] [place] [address] Care Team Providers Care Lacquer Machine Feeder Name Role Phone Kayleigh Mallory WILFREDO Primary Care Provider [phone] Encounter Details Date Type Department Care Team (Latest Contact Info) Description 12/06/2021 7:11 EDT - 12/06/2021 23:59 EDT Hospital Encounter [facility] [address] [place] [address] Discharge Disposition: Home or Self Care Social History Tobacco Use Types Packs/Day Years [...] No 02/02/2018 documented as of this encounter Discharge Instructions * Discharge Instructions* Zo Everett RN - 12/05/2021 17:04 EDT What is EVUSHELD (tixagevimab co-packaged with cilgavimab)? [...] Refills Start Date End Date acetaminophen (TYLENOL) 500 mg tablet Take 2 Tablets by mouth every 6 hours as needed. cetirizine (ZYRTEC) 10 mg tablet Take 1 Tablet by mouth daily. DOCUSATE SODIUM (COLACE ORAL)Indications:Need for pneumococcal vaccination,Psoriatic arthropathy (HCC-CMS),Encounter for long-term (current) use of medications,Hammer toes of both feet,Psoriasis with arthropathy (HCC-CMS) Take by mouth. fluocinonide (LIDEX) 0.05 % ointment Apply daily to rash if needed 1 Tube 3 05/07/2017 FLUTICASONE PROPIONATE (FLUTICASONE INHL) Inhale as directed daily. lisinopril (PRINIVIL, ZESTRIL) 10 mg tablet Take 1 Tablet by mouth daily. loratadine-pseudoephedr ine (CLARITIN-D 24-HOUR) 10-240 mg per tablet Take 1 Tablet by mouth daily as needed. Reported on 04/17/2016 montelukast (SINGULAIR) 10 mg tablet Take 1 Tablet by mouth daily. Multivitamins with Minerals Tab Take 1 Tablet by mouth daily. oxybutynin (DITROPAN) 5 mg tablet Take 1 Tablet by mouth daily. adalimumab (HUMIRA,CF, PEN) 40 mg/0.4 mL pen Inject 0.4 mL into the skin every 14 days. Specialty. 6 Kit 1 08/28/2021 02/28/2022 folic acid (FOLVITE) 1 mg tablet Take 1 Tablet by mouth daily. 90 Tablet 3 08/28/2021 06/12/2022 methotrexate 2.5 mg tablet Take 10 Tablets by mouth once a week. 120 Tablet 08/28/2021 02/18/2022 documented as of this encounter Discharge Disposition Disposition Code Departure Means Destination Home or Self Intermediate documented in this encounter Progress Notes * Zo Everett, IMAN - 12/06/2021 1000 EDT Nina Boothe arrived to [facility] for and Evusheld injection [...] Contact Info) Description 11/24/2023 10:00 EDT Telemedicine [facility] Rheumatology & Immunology - [address] [address] Harsh Malloy NP 111 [facility], [address] [place] [phone] documented as of this encounter Visit Diagnoses Not on filedocumented in this encounter Administered Medications Inactive Administered Medications - up to 3 most recent administrations Medication Order MAR Action Action Date Dose Rate Site tixagevimab 150 mg/1.5 ml-cilgavimab 150 mg/1.5 ml (EVUSHELD) EUA injections 600 mg 600 mg, intramuscular, NOW X1, 1 dose, On Roxanne 12/06/21 at 1000, Routine, Outpatient Infusion Given 12/06/2021 10:03 EDT 600 mg documented in this encounter Orders Medications Ordered That Josh ht Not Have Been Administered Count Last Ordered Date First Ordered Date diphenhydrAMINE (BENADRYL) injection 50 mg 1 12/06/2021 EPINEPHrine (ADRENALIN) injection 0.3 mg 1 12/06/2021 methylPREDNISolone sod suc(P F) (SOLU-MEDROL) injection 100 mg 1 12/06/2021 tixagevimab 150 mg/1.5 ml-ci lgavimab 150 mg/1.5 ml (EVUSHELD) EUA injections 600 mg 1 12/06/2021 documented in this encounter Care Teams Lacquer Machine Feeder Relationship Specialty Start Date End Date Kayleigh Mallory FNP [address] [facility] [address] [place] [phone] PCP - General 02/04/19 documented as of this encounter
--- OUTSIDE RECORDS SUMMARY | 2023-11-13 17:01 | XMS_ITS | Encounter Summary ---
Author Organization [facility] Address [address] [place] [address] Care Team Providers Care Metal Ceiling Builder Name Role Phone Kayleigh Mallory WILFREDO Primary Care Provider [phone] Encounter Details Date Type Department Care Team ([facility] Contact Info) Description 08/19/2022 Specialty Pharmacy [facility] Amb[facility] - [facility] [address] [place], [place] [phone] Damaris Torrez RPH Social History Tobacco Use [...] Contact Info) Description 11/24/2023 10:00 EDT Telemedicine [facility] Rheumatology & Immunology - [address] [phone] Harsh Malloy, HAIRSPRING VIBRATOR 111 [facility], [address] [place] [phone] documented as of this encounter Visit Diagnoses Not on filedocumented in this encounter Care Teams Metal Ceiling Builder Relationship Specialty Start Date End Date Kayleigh Mallory FNP 26 [facility] [address] [place] [phone] PCP - General 02/04/19 documented as of this encounter
--- OUTSIDE RECORDS SUMMARY | 2023-11-13 17:01 | XMS_ITS | Encounter Summary ---
Author Organization [facility] Address [address] [place] [address] Care Team Providers Care Cloth Bale Header Name Role Phone Kayleigh Mallory WILFREDO Primary Care Provider [phone] Reason for Visit * Reason Comments Medications Refill Encounter Details Date Type Department Care Team (Late st Contact Info) Description 03/21/2023 Refill [facility] Rheumatology & Immunology - [facility] [address] [place], [place] [phone] Harsh Malloy, FISHING WORKER 111 [facility], [address] [place] [address] Medications Refill Social History Tobacco [...] NEEDED EVERY 3 MONTHS 120 Tablet 1 03/21/2023 05/27/2023 documented in this encounter Plan of Treatment Upcoming Encounters Date Type Department Care Team (Late st Contact Info) Description 11/24/2023 10:00 EDT Telemedicine [facility] Rheumatology & Immunology - [address] [phone] Harsh Malloy NP 111 [facility], [address] [place] [phone] documented as of this encounter Visit Diagnoses Not on filedocumented in this encounter Discontinued Medications Medication Sig Discontinue Reason Start Date End Da te methotrexate 2.5 mg tablet TAKE 10 TABLETS BY MOUTH WEEKLY LABS ARE NEEDED EVERY 3 MONTHS 11/04/2022 03/21/2023 documented as of this encounter Care Teams Cloth Bale Header Relationship Specialty Start Date End Date Kayleigh Mallory FNP [address] [place] [address] [address] [place] [address] PCP - General 02/04/19 documented as of this encounter
--- OUTSIDE RECORDS SUMMARY | 2023-11-13 17:01 | XMS_ITS | Encounter Summary ---
Author Organization [facility] Address [address] [place] [address] Care Team Providers Care Inspector Tester Sorter Name Role Phone Kayleigh Mallory WILFREDO Primary Care Provider [phone] Reason for Visit * Reason Onset Date Comments Medications Refill 06/12/2022 Encounter Details Date Type Department Care Team (Late st Contact Info) Description 06/12/2022 Refill [facility] Rheumatology & Immunology - [address] [phone] China Penn RN Medications Refill Social History Tobacco Use Types [...] Tablet by mouth daily. 90 Tablet 3 06/14/2022 09/09/2022 documented in this encounter Miscellaneous Notes * Telephone Encounter - China Penn, RN - 06/12/2022 1012 EST Left message for pt to call back. Some confusion as to where she wants her methotrexate and folic acid refilled. Overdue for labs. Another nurse recently sent over a month's worth of MTX to [facility] in [place] where she has filled before. [facility] sent a request for a refill on MTX and folic acid. documented in this encounter Plan of Treatment Upcoming Encounters Date Type Department Care Team (Late st Contact Info) Description 11/24/2023 10:00 EDT Telemedicine [facility] Rheumatology & Immunology - [address] [address] Harsh Malloy, ELBERT 111 [facility], [address] [place] [phone] documented as of this encounter Visit Diagnoses Not on filedocumented in this encounter Discontinued Medications Medication Sig Discontinue Reason Start Date End Da te folic acid (FOLVITE) 1 mg tablet Take 1 Tablet by mouth daily. Reorder 08/28/2021 06/12/2022 documented as of this encounter Care Teams Inspector Tester Sorter Relationship Specialty Start Date End Date Kayleigh Mallory FNP 26 [facility] [address] [place] [address] PCP - General 02/04/19 documented as of this encounter
--- OUTSIDE RECORDS SUMMARY | 2023-11-13 17:01 | XMS_ITS | Encounter Summary ---
Author Organization [facility] Address [address] [place] [address] Care Team Providers Care Men'S Locker Room Attendant Name Role Phone Kayleigh Mallory WILFREDO Primary Care Provider [phone] Encounter Details Date Type Department Care Team ([facility] Contact Info) Description 10/05/2021 Specialty Pharmacy [facility] [address] [place], [place] [address] Damaris Torrez RPH Social History Tobacco Use [...] Upcoming Encounters Date Type Department Care Team ([facility] Contact Info) Description 11/24/2023 10:00 EDT Telemedicine [facility] Rheumatology & Immunology - [address] [address] Harsh Malloy, SKIFF OPERATOR 111 [facility], [address] [place] [phone] documented as of this encounter Visit Diagnoses Not on filedocumented in this encounter Care Teams Men'S Locker Room Attendant Relationship Specialty Start Date End Date Kayleigh Mallory FNP 26 [facility] [address] [place] [phone] PCP - General 02/04/19 documented as of this encounter
--- OUTSIDE RECORDS SUMMARY | 2023-11-13 17:01 | XMS_ITS | Encounter Summary ---
Author Organization [facility] Address [address] [place] [address] Care Team Providers Care Game Artist Name Role Phone Kayleigh Mallory WILFREDO Primary Care Provider [phone] Reason for Visit * Reason Onset Date Comments Medications Refill 09/13/2022 Humira needs refills Encounter Details Date Type Department Care Team (Late st Contact Info) Description 09/13/2022 Telephone [facility] Rheumatology & Immunology - [facility] [address] [place], [place] [phone] Harsh Malloy, ELBERT 111 [facility], [address] [place] [address] Medications Refill (Humira needs refills) Social History Tobacco Use Types Packs/Day Years [...] every 14 days. Specialty. 6 Kit 1 09/13/2022 02/24/2023 documented in this encounter Miscellaneous Notes * Telephone Encounter - Kim Huang - 09/13/2022 1158 EDT Medication Request Medication: Humira pen 40 mg subcutaneous every 14 days Medication refill: yes Medication dose change: no Refill due: now Date of last fill: 08/19 Pharmacy: [facility] Next appt: 03/03/2023 Renewal of Humira is required for continued use; order sent per refill protocol to [facility] for dispensing. Follow-up visit scheduled with Harsh Malloy on 03/03/23. Yamile Plaza, StevenD, BCPS Pharmacist Ambulatory Clinician - Rheumatology documented in this encounter Plan of Treatment Upcoming Encounters Date Type Department Care Team (Late st Contact Info) Description 11/24/2023 10:00 EDT Telemedicine [facility] Rheumatology & Immunology - [address] [phone] Harsh Malloy NP 111 [facility], [address] [place] [address] documented as of this encounter Visit Diagnoses Not on filedocumented in this encounter Discontinued Medications Medication Sig Discontinue Reason Start Date End Da te adalimumab (HUMIRA,CF, PEN) 40 mg/0.4 mL pen Inject 0.4 mL into the skin every 14 days. Specialty. Reorder 02/28/2022 09/13/2022 documented as of this encounter Care Teams Game Artist Relationship Specialty Start Date End Date Kayleigh Mallory FNP 26 [facility] [address] [place] [phone] PCP - General 02/04/19 documented as of this encounter
--- OUTSIDE RECORDS SUMMARY | 2023-11-13 17:01 | XMS_ITS | Encounter Summary ---
Author Organization [facility] Address [address] [place] [address] Care Team Providers Care Agriscience Instructor Name Role Phone Kayleigh Mallory WILFREDO Primary Care Provider [phone] Encounter Details Date Type Department Care Team (Late st Contact Info) Description 12/09/2022 Specialty Pharmacy [facility] - [facility] [address] [place], [place] [phone] Yamile Plaza RPH Social History Tobacco Use [...] Contact Info) Description 11/24/2023 10:00 EDT Telemedicine [facility] Rheumatology & Immunology - [address] [phone] Harsh Malloy, LOBSTERMAN 111 [facility], [address] [place] [phone] documented as of this encounter Visit Diagnoses Not on filedocumented in this encounter Care Teams Agriscience Instructor Relationship Specialty Start Date End Date Kayleigh Mallory FNP 26 [facility] [address] [place] [phone] PCP - General 02/04/19 documented as of this encounter
--- OUTSIDE RECORDS SUMMARY | 2023-11-13 17:01 | XMS_ITS | Encounter Summary ---
Author Organization [facility] Address [address] [place] [address] Care Team Providers Care Flex O Writer Operator Name Role Phone Kayleigh Mallory WILFREDO Primary Care Provider [phone] Encounter Details Date Type Department Care Team (Late st Contact Info) Description 01/06/2023 Specialty Pharmacy [facility] - [facility] [address] [place], [place] [address] Yamile Plaza RPH Social History Tobacco Use [...] Info) Description 11/24/2023 10:00 EDT Telemedicine [facility] Rheumatology & Immunology - [address] [address] Harsh Malloy, LOG ROLLER 111 [facility], [address] [place] [phone] documented as of this encounter Visit Diagnoses Not on filedocumented in this encounter Care Teams Flex O Writer Operator Relationship Specialty Start Date End Date Kayleigh Mallory FNP 26 [facility] [address] [place] [phone] PCP - General 02/04/19 documented as of this encounter
--- OUTSIDE RECORDS SUMMARY | 2023-11-13 17:01 | XMS_ITS | Encounter Summary ---
Author Organization [facility] Address [address] [place] [address] Care Team Providers Care Claims Adjuster Crop Name Role Phone Kayleigh Mallory WILFREDO Primary Care Provider Encounter Details Date Type Department Care Team (Latest Contact Info) Description 04/01/2023 Specialty Pharmacy [facility] [address] [place], [place] [address] Matthew Kapadia [facility] Refill Coordination Outreach for Rheumatology Social [...] as of this encounter Progress Notes * Lois Li - 04/01/2023 1133 EST 04/01/2023 Medication Name:Humira RTS until: 04/02/23 Initials:BL documented in this encounter Plan of Treatment Upcoming Encounters Date Type Department Care Team (Late st Contact Info) Description 11/24/2023 10:00 EDT Telemedicine [facility] Rheumatology [facility] - [facility] [address] [place], [place] [address] Harsh Malloy NP 111 [facility], [address] [place] [phone] documented as of this encounter Visit Diagnoses Not on filedocumented in this encounter Care Teams Claims Adjuster Crop Relationship Specialty Start Date End Date Kayleigh Mallory FNP [address] [place] [address] [address] [place] [phone] PCP - General 02/04/19 documented as of this encounter
--- OUTSIDE RECORDS SUMMARY | 2023-11-13 17:02 | XMS_ITS | Encounter Summary ---
Author Organization [facility] Address [address] [place] [address] Care Team Providers Care Environmental Designer Name Role Phone Kayleigh Mallory WILFREDO Primary Care Provider Reason for Visit * Reason Comments Follow-up 6 month Joint Pain Toes - Sore,Consiten tly bothersome. Right hand issues - increasing Encounter Details Date Type Department Care Team (Late st Contact Info) Description 03/01/2021 10:00 EDT Office Visit [facility] Rheumatology & Immunology - [address] [phone] Harsh Malloy, ELBERT 111 [facility], [address] [place] [address] Psoriatic arthritis (HCC-CMS) (HCC) (HCC-CMS) (Primary Dx); Encounter for long-term (current) [...] Sign Reading Time Taken Comments Blood Pressure 139/73 03/01/2021 1000 EDT Pulse 91 03/01/2021 1000 EDT Temperature - - Respiratory Rate 16 03/01/2021 1000 EDT Oxygen Saturation - - Inhaled Oxygen Concentration - - Weight 67.1 kg (148 lb) 03/01/2021 1000 EDT Height 161.3 cm (5' 3.5) 03/01/2021 1000 EDT Body Mass Index 25.81 03/01/2021 1000 EDT documented in this encounter Functional Status [...] Patient Instructions * Patient Instructions* Harsh Malloy APRN - 03/01/2021 10:00 EDT 1. Continue current meds. 2. Labs every 3-4 months 3. Try padding out or stretching your shoes 4. F/u 6 months in person documented in this encounter Ordered Prescriptions Prescription Sig Dispensed Refills Start Date End Da te methotrexate 2.5 mg tablet TAKE 10 TABLETS BY MOUTH ONCE A WEEK 120 Tablet 1 03/01/2021 08/20/2021 adalimumab (HUMIRA,CF, PEN) 40 mg/0.4 mL pen Inject 0.4 mL into the skin every 14 days. Specialty. 6 Kit 1 03/01/2021 08/28/2021 documented in this encounter Progress Notes * Harsh Malloy APRN - 03/01/2021 1000 EDT Patient ID: Reilly Hui is a 50 y.o. y.o. female Subjective: Chief Complaint: Follow-up (6 month) and Joint Pain (Toes - Sore,Consitently bothersome. Right handissues - increasing ) HPI: Here for follow up of psoriatic arthritis on humira and methotrexate. 01/13/2018 Sphyncerotomy Changes since last visit REVIEW OF SYSTEMS: Yes No Yes No Fever X Joint pain x Weight gain or loss pounds (lbs) Duration of AM joint stiffness Few min hours / min Eye pain or dryness X Numbness/tingling X Mouth or nose sores X Heart burn / Nausea X Chest pain X Diarrhea X Shortness of Breath X Blood in stool X Cough X Burning on urination X Skin rash X Hand/Foot color change in cold X Pfizer #1, #2, #3 Had 2020 flu 01/18/21 Trying to loose wt eating better, working out at home and walking at lunch States toes have been swelling q1 Patient Active Problem List Diagnosis ??? Psoriasis with arthropathy (HCC-CMS) ([facility]) ??? Encounter for long-term (current) use of medications ??? Hypertensive disorder ??? Environmental allergies ??? Psoriasis ??? Psoriasis with arthropathy (HCC-CMS) ([facility]) Past Medical History: Diagnosis Date ??? Abnormal [...] is as documented in Prism. Objective: BP 139/73 (BP Cuff Location: Left arm, BP Patient Position: Sitting, BP Cuff Sizes: Adult, regular) Pulse 91 Resp 16 Ht 161.3 cm (63.5) Wt 67.1 kg (148 lb) BMI 25.81 kg/m?? PHYSICAL EXAM: ?? General: No acute [...] for REILLY HUI ( ) as of 02/28/2021 09:22 Ref. Range 12/19/2020 07:09 Sodium, External Unknown 140 Potassium, External Unknown 4.8 Chloride, External Unknown 103 CO2, External Unknown 29.7 BUN, External Unknown 9 Creatinine, External Latest Ref Range: 0.55 - 1.02 mg/dL 1.1 (A) Glucose, Serum, External Unknown 96 Calcium, External Unknown 8.9 Total Protein, External Unknown 7.0 Albumin, External Unknown 3.9 AST, External Unknown 17 ALT, External Unknown 18 Bilirubin, Total, External Unknown 0.6 Alkaline Phosphatase, External Unknown 65 GFR, Calculated, External Unknown 52.16 WBC, External Unknown 5.38 RBC, External Unknown 4.13 Hemoglobin, External Unknown 12.0 HCT, External Unknown 37.7 MCH, External Unknown 29.1 MCV, External Unknown 91.3 MCHC, External Latest Ref Range: 32.0 - 36.0 % 31.8 (A) RDW-CV, External Unknown 14.0 PLT, External Unknown 311 ABS Neutrophils, External Unknown 3.36 Neutrophils, External Unknown 62.4 Lymphocytes, External Unknown 23.4 Eosinophils, External Unknown 2.8 Basophils, External Unknown 0.6 ABS Lymphs, External Unknown 1.36 ABS Monocytes, External Unknown 0.57 ABS Eosinophils, External Unknown 0.15 ABS Basophils, External Unknown 0.03 Monocytes, External Unknown 10.6 RAPID3 Summary Functional Status: 0 Pain Tolerance: 7 Global Estimate: 6 Score: 13 Interpretation: High ASSESSMENT: 1. 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 Doing well on MTX 25mg po weekly and humira, no joint activity . States toes swell occasionally. No active on PE. Does have cock ups bilateral feet discussed this is not joint swelling and could pad out her shoes. 2. No psoriasis 3. Patient is currently on biologic therapy. Patient should receive either the PPSV23 or PCV13 vaccine, if indicated based on the CDC recommendations, either at the rheumatology office or PCP office. Up to date on pneumonia, shingrix 4. Up to date on labs Labs every 3-4 months 5. Completed covid vaccine - Synesis 1-3 Pneumonia 13, pneumonia 23 and shingrix 6 pes planus - recommend arch supports Encounter Diagnoses Name Primary? Psoriatic arthritis ([facility]) ([facility]) Yes ??? Encounter for long-term (current) use of medications PLAN: 1. Continue current meds. 2. Labs every 3-4 months 3. Try padding out or stretching your shoes 4. F/u 6 months in person 1. Psoriatic arthritis ([facility]) ([facility]) 2. Encounter for long-term (current) use of medications No orders of the defined types were placed in this encounter. Barriers to learning identified: No Patient verbalizes understanding and agrees with plan Yes I was directly supervised by: Dr. Gray . They were present in clinic and available for consult if needed. Harsh Malloy, SUPERVISOR RIVETING 03/01/2021 10:07 I spent a total of 30 minutes on the date of this encountermeeting with the patient and reviewing documentation/coordinating care as described in the above note. No procedures were performed at the time of the visit. documented in this encounter Plan of Treatment Upcoming Encounters Date Type Department Care Team (Late st Contact Info) Description 11/24/2023 10:00 EDT Telemedicine [facility] Rheumatology & Immunology - [facility] [address] [place], [place] [phone] Harsh Malloy, REVIVAL CLERK 111 [facility], [address] [place] [phone] documented as of this encounter Visit Diagnoses Diagnosis Psoriatic arthritis ([facility])- Primary Psoriatic arthropathy Encounter for long-term (current) use of medications Encounter for long-term (current) use of other medications documented in this encounter Discontinued Medications Medication Sig Discontinue Reason Start Date End Da te methotrexate 2.5 mg tablet TAKE 10 TABLETS BY MOUTH ONCE A WEEK * please get labs JOSIAH Reorder 12/14/2020 03/01/2021 adalimumab (HUMIRA,CF, PEN) 40 mg/0.4 mL pen Inject 0.4 mL into the skin every 14 days. Specialty. Reorder 12/20/2020 03/01/2021 documented as of this encounter Care Teams Environmental Designer Relationship Specialty Start Date End Date Kayleigh Mallory FNP [address] [place] [address] [address] [place] [phone] PCP - General 02/04/19 documented as of this encounter
--- OUTSIDE RECORDS SUMMARY | 2023-11-13 17:02 | XMS_ITS | Encounter Summary ---
Author Organization [facility] Address [address] [place] [address] Care Team Providers Care Soap Press Feeder Name Role Phone Kayleigh Mallory WILFREDO Primary Care Provider Encounter Details Date Type Department Care Team (Late st Contact Info) Description 09/13/2019 Specialty Pharmacy [facility] [address] [address] Eric Redmond [place] Social History Tobacco Use Types Packs/Day Years Used Date Smoking Tobacco: Never Smokeless Tobacco: Never Alcohol Use Standard Drinks/Week Comments Yes 0 (1 standard drink = 0.6 oz pur e alcohol) About 2 beers a month if that Sex and Gender Information Value Date Recorded [...] Contact Info) Description 11/24/2023 10:00 EDT Telemedicine [facility] Rheumatology & Immunology - [facility] [address] [place] [address] Harsh Malloy, FUNCTIONAL DIRECTOR 111 [facility], [address] [place] [address] documented as of this encounter Visit Diagnoses Not on filedocumented in this encounter Care Teams Soap Press Feeder Relationship Specialty Start Date End Date Kayleigh Mallory FNP [address] [place] [address] [address] [place] [phone] PCP - General 02/04/19 documented as of this encounter
--- OUTSIDE RECORDS SUMMARY | 2023-11-13 17:02 | XMS_ITS | Encounter Summary ---
Author Organization [facility] Address [address] [place] [address] Care Team Providers Care Sponge Press Operator Name Role Phone Kayleigh Mallory WILFREDO Primary Care Provider Reason for Visit * Reason Onset Date Comments Medications Refill 03/27/2020 Encounter Details Date Type Department Care Team (Late st Contact Info) Description 03/27/2020 Refill [facility] Rheumatology & Immunology - [address] [phone] Harsh Malloy, AD TAKER 111 [facility] [address] [place] [address] Medications Refill Social History Tobacco [...] te methotrexate 2.5 mg tablet Take 10 Tabs by mouth once a week. 40 Tab 1 03/31/2020 06/19/2020 documented in this encounter Miscellaneous Notes * Telephone Encounter - Talisha Loja RN - 03/29/2020 1321 ESTFrom: Nina Boothe To: Office of Harsh Malloy APRN Sent: 03/27/2020 6:19 EST Subject: Medication Renewal Request Refills have been requested for the following medications: methotrexate 2.5 mg tablet [Harsh Malloy APRN] Preferred pharmacy: [id number] [address] [facility] documented in this encounter Plan of Treatment Upcoming Encounters Date Type Department Care Team (Late st Contact Info) Description 11/24/2023 10:00 EDT Telemedicine [facility] Rheumatology & Immunology - [address] [address] Harsh Malloy NP 111 [facility], [address] [place] [address] documented as of this encounter Visit Diagnoses Not on filedocumented in this encounter Discontinued Medications Medication Sig Discontinue Reason Start Date End Da te methotrexate 2.5 mg tablet TAKE 10 TABLETS BY MOUTH ONCE A WEEK WITH LABS EVERY 3 TO 4 MONTHS Reorder 03/22/2020 03/27/2020 documented as of this encounter Care Teams Sponge Press Operator Relationship Specialty Start Date End Date Kayleigh Mallory FNP 26 [facility] [address] [place] [phone] PCP - General 02/04/19 documented as of this encounter
--- OUTSIDE RECORDS SUMMARY | 2023-11-13 17:02 | XMS_ITS | Encounter Summary ---
Author Organization [facility] Address [address] [place] [address] Care Team Providers Care Flux Plant Operator Name Role Phone Kayleigh Mallory WILFREDO Primary Care Provider [phone] Encounter Details Date Type Department Care Team (Late st Contact Info) Description 02/14/2020 Specialty Pharmacy [facility] - [facility] [address] [place] [address] Eric Redmond RPH Social History Tobacco Use [...] Contact Info) Description 11/24/2023 10:00 EDT Telemedicine [facility] Rheumatology & Immunology - [address] [phone] Harsh Malloy, INDUCTION HEAT TREATER 111 [facility], [address] [place] [phone] documented as of this encounter Visit Diagnoses Not on filedocumented in this encounter Care Teams Flux Plant Operator Relationship Specialty Start Date End Date Kayleigh Mallory FNP 26 [facility] [address] [place] [phone] PCP - General 02/04/19 documented as of this encounter
--- OUTSIDE RECORDS SUMMARY | 2023-11-13 17:02 | XMS_ITS | Encounter Summary ---
Author Organization [facility] Address [address] [place] [address] Care Team Providers Care Installation Technician Name Role Phone Kayleigh Mallory WILFREDO Primary Care Provider [phone] Reason for Visit * Reason Comments Other Encounter Details Date Type Department Care Team (Late st Contact Info) Description 10/23/2019 [facility] Rheumatology & Immunology - [facility] [address] [place], [place] [phone] Harsh Malloy, ELBERT 111 [facility], [address] 5 [place] [address] Other Social History Tobacco Use [...] mg tablet TAKE 1 TABLET BY MOUTH EVERY DAY 90 Tab 3 10/23/2019 08/24/2020 documented in this encounter Plan of Treatment Upcoming Encounters Date Type Department Care Team (Late st Contact Info) Description 11/24/2023 10:00 EDT Telemedicine [facility] Rheumatology & Immunology - [address] [phone] Harsh Malloy NP 111 [facility], [address] [place] [phone] documented as of this encounter Visit Diagnoses Not on filedocumented in this encounter Discontinued Medications Medication Sig Discontinue Reason Start Date End Da te folic acid (FOLVITE) 1 mg tablet TAKE 1 TABLET BY MOUTH ONCE DAILY 04/30/2019 10/23/2019 documented as of this encounter Care Teams Installation Technician Relationship Specialty Start Date End Date Kayleigh Mallory FNP 26 [facility] [address] [place] [address] PCP - General 02/04/19 documented as of this encounter
--- OUTSIDE RECORDS SUMMARY | 2023-11-13 17:02 | XMS_ITS | Encounter Summary ---
Author Organization [facility] Address [address] [place] [address] Care Team Providers Care Operations Label Clerk Name Role Phone Kayleigh Mallory WILFREDO Primary Care Provider [phone] Reason for Referral * Medication Prior Authorization (Routine) - Authorized Specialty Diagnoses / Procedures Referred By Twyla love Referred To Contact Pharmacy Diagnoses Psoriatic arthropathy ([facility]) Harsh Malloy, ELECTRICAL PLUMBING SUPERVISOR 111 [facility], [address] [place] [address] [facility] [address] [place] [id number] Referral ID Status Reason Start Date Expiration Date Visits Requested Visits Authorized [id number] Authorized Medication Prior Authorization 0 1 1 Question Answer Medication to be Prior Authorized: Chris tate Comments The purpose of this consult request is to inform the scheduling staff that a medication needs to be prior-authorized before it is prescribed and/or administered. Needs medication for dose on 11/14 Reason for Visit * Reason Onset Date Comments Prior Auth, Medication 11/08/2019 Chris willams Encounter Details Date Type Department Care Team ([facility] Contact Info) Description 11/08/2019 Telephone [facility] Rheumatology & Immunology - [facility] [address] [place], [place] [address] Harsh Malloy NP [address] [place] [address] Prior Auth, Medication (Humira reauth) Social History Tobacco Use Types Packs/Day Years [...] encounter Miscellaneous Notes * Telephone Encounter - Ann Marie Reza - 11/09/2019 0907 EDT Prior Authorization Approval Medication: Humira CF pen q14d renewal Approved: through 11/08/20 Authorization Number: [id number] Benefits Information or Other Notes: Pharmacy: [facility] Prior Authorization Submission Process Medication: Humira CF pen q14d renewal Insurance: JAMES Date PA Request Received: 11/08/19 PA Submission Date: 11/09/19 Submitted by: Ann Marie Phone: [phone] documented in this encounter Plan of Treatment Upcoming Encounters Date Type Department Care Team (Late st Contact Info) Description 11/24/2023 10:00 EDT Telemedicine [facility] Rheumatology & Immunology - [address] [address] Harsh Malloy NP [address] [place] [phone] Scheduled Referrals Name Type Priority Associated Diagnoses Order Schedule AMB MEDICATION PRIOR AUTHORIZATION Outpatient Referral Routine Psoriatic arthropathy ([facility]) Ordered: 11/08/2019 documented as of this encounter Visit Diagnoses Diagnosis Psoriatic arthropathy ([facility])- Primary Psoriatic arthropathy documented in this encounter Care Teams Operations Label Clerk Relationship Specialty Start Date End Date Kayleigh Mallory FNP [address] [place] [address] [address] [place] [address] PCP - General 02/04/19 documented as of this encounter
--- OUTSIDE RECORDS SUMMARY | 2023-11-13 17:02 | XMS_ITS | Encounter Summary ---
Author Organization [facility] Address [address] [place] [address] Care Team Providers Care Theatre Professor Name Role Phone Kayleigh Mallory WILFREDO Primary Care Provider [phone] Encounter Details Date Type Department Care Team (Late st Contact Info) Description 02/22/2019 Specialty Pharmacy [facility] [address] [address] Eric Redmond RPH Social History Tobacco Use [...] Contact Info) Description 11/24/2023 10:00 EDT Telemedicine [facility] Rheumatology & Immunology - [facility] [address] [place] [address] Harsh Malloy, POWER PLANT OPERATIONS MANAGER 111 [facility], [address] [place] [address] documented as of this encounter Visit Diagnoses Not on filedocumented in this encounter Care Teams Theatre Professor Relationship Specialty Start Date End Date Kayleigh Mallory FNP [address] [place] [address] [address] [place] [phone] PCP - General 02/04/19 documented as of this encounter
--- OUTSIDE RECORDS SUMMARY | 2023-11-13 17:02 | XMS_ITS | Encounter Summary ---
Author Organization [facility] Address [address] [place] [address] Care Team Providers Care Hvac/R Instructor Name Role Phone Kayleigh Mallory WILFREDO Primary Care Provider [phone] Encounter Details Date Type Department Care Team (Late st Contact Info) Description 04/05/2019 Specialty Pharmacy [facility] [address] [address] Eric Redmond [place] Social History Tobacco Use [...] Contact Info) Description 11/24/2023 10:00 EDT Telemedicine [facility] Rheumatology & Immunology - [facility] [address] [place] [address] Harsh Malloy, GARMENT SUPERVISOR 111 [facility], [address] [place] [address] documented as of this encounter Visit Diagnoses Not on filedocumented in this encounter Care Teams Hvac/R Instructor Relationship Specialty Start Date End Date Kayleigh Mallory FNP [address] [place] [address] [address] [place] [phone] PCP - General 02/04/19 documented as of this encounter
--- OUTSIDE RECORDS SUMMARY | 2023-11-13 17:02 | XMS_ITS | Encounter Summary ---
Author Organization [facility] Address [address] [place] [address] Care Team Providers Care Tank Furnace Operator Name Role Phone Kayleigh Mallory WILFREDO Primary Care Provider [phone] Reason for Visit * Reason Comments Follow-up Encounter Details Date Type Department Care Team (Late st Contact Info) Description 08/12/2019 13:00 EDT Telemedicine [facility] Rheumatology & Immunology - [address] [phone] Harsh Malloy, BANKRUPTCY ASSISTANT [address] [place] [address], [address] [place] [address] Psoriatic arthropathy (HCC-CMS) (Primary Dx); [...] * Patient Instructions* Harsh Malloy APRN - 08/12/2019 13:00 EDT Please discuss FDA warning with PCP regarding singular Ok to skip 07/2019 labs d/t covid 19 and please try for September 2019 increase methotrexate to 10 tabs orally weekly, if having side effects, oral or nasal sores, GI upset, feeling unwell, Please call the clinic to increase folic acid. If still having 1-2 days of mild joint swelling after 3 months on 10 tabs of methotrexate please call the office. F/u 6 months documented in this encounter Ordered Prescriptions Prescription Sig Dispensed Refills Start Date End Da te methotrexate 2.5 mg tablet Take 10 Tabs by mouth once a week. Labs every 3-4 months (last drawn 04/03/19) 120 Tab 1 08/12/2019 03/22/2020 documented in this encounter Progress Notes * Harsh Malloy APRN - 08/12/2019 1300 EDT [...] possible risks.? Patient understands the information provided regardingtelemedicine, has had the opportunity to ask questions about this information, and all questions have been answered to patient???s satisfaction. Patient consents for the use of telemedicine in his/her medical care and authorizes the transmission of any relevant medical information to providers and their staff involved in patient???s medical or mental health care. TELEMEDICINE VIDEO VISIT Today's visit was provided through telemedicine video conferencing: The location of the patient : Workplace The location of the provider: Office The following staff and their role did participate in today's encounter visit: Hasrh Malloy, ILEANA No psoriasis Intermittent joint flares [...] having 1-2 days of mild joint swelling after 3 months on 10 tabs of methotrexate please call the office. F/u 6 months 1. Psoriatic arthropathy ([facility]) 2. Encounter for long-term (current) use of medications No orders of the defined types were placed in this encounter. Barriers to learning identified: No Patient verbalizes understanding and agrees with plan Yes I was directly supervised by: Dr. Gray . They were present in clinic and available for consult if needed. Harsh Malloy APRN 08/12/2019 8:27 I spent 30 minutes in [id number] via zoom with pt. documented in this encounter Plan of Treatment Upcoming Encounters Date Type Department Care Team (Late st Contact Info) Description 11/24/2023 10:00 EDT Telemedicine [facility] Rheumatology & Immunology - [address] [phone] Harsh Malloy, BANKRUPTCY ASSISTANT 111 [facility], [address] [place] [phone] documented as of this encounter Visit Diagnoses Diagnosis Psoriatic arthropathy ([facility])- Primary Psoriatic arthropathy Encounter for long-term (current) use of medications Encounter for long-term (current) use of other medications documented in this encounter Discontinued Medications Medication Sig Discontinue Reason Start Date End Da te methotrexate 2.5 mg tablet Take 9 Tabs by mouth once a week. Labs every 3-4 months (last drawn 04/03/19) Reorder 04/26/2019 08/12/2019 documented as of this encounter Care Teams Tank Furnace Operator Relationship Specialty Start Date End Date Kayleigh Mallory FNP 26 [facility] [address] [place] [address] PCP - General 02/04/19 documented as of this encounter
--- OUTSIDE RECORDS SUMMARY | 2023-11-13 17:02 | XMS_ITS | Encounter Summary ---
Author Organization [facility] Address [address] [place] [address] Care Team Providers Care Cold Work Operator Name Role Phone Kayleigh Mallory WILFREDO Primary Care Provider [phone] Reason for Visit * Reason Onset Date Comments Medications Refill 12/20/2020 Encounter Details Date Type Department Care Team (Late st Contact Info) Description 12/20/2020 Telephone [facility] Rheumatology & Immunology - [facility] [place] [facility] [address] [place], [place] [phone] Harsh Malloy, PARKING ENFORCEMENT TECHNICIAN 111 [facility] 5 [place] [address] Medications Refill Social History Tobacco [...] the skin every 14 days. Specialty. 6 Pen 1 12/20/2020 03/01/2021 documented in this encounter Miscellaneous Notes * Telephone Encounter - Rodrigue Saez - 12/20/2020 9785 EDT Medication Request Medication: humira Medication refill: yes Medication dose change: no Refill due: 12/20/20 Pharmacy: [facility] Renewal of Humira is required for continued use; order sent per refill protocol to [facility] for dispensing. Follow-up visit scheduled with Harsh Malloy on 03/01/21. Eric Redmond, Pharm.D., [facility] Pharmacist Clinician - Rheumatology 12/20/2020 documented in this encounter Plan of Treatment Upcoming Encounters Date Type Department Care Team (Late st Contact Info) Description 11/24/2023 10:00 EDT Telemedicine [facility] Rheumatology & Immunology - [address] [address] Harsh Malloy, PARKING ENFORCEMENT TECHNICIAN 111 [facility], [address] [place] [address] documented as of this encounter Visit Diagnoses Not on filedocumented in this encounter Discontinued Medications Medication Sig Discontinue Reason Start Date End Da te adalimumab (HUMIRA,CF, PEN) 40 mg/0.4 mL pen Inject 0.4 mL into the skin every 14 days. Specialty. Reorder 05/18/2020 12/20/2020 documented as of this encounter Care Teams Cold Work Operator Relationship Specialty Start Date End Date Kayleigh Mallory FNP [address] [place] [address] [address] [place] [address] PCP - General 02/04/19 documented as of this encounter
--- OUTSIDE RECORDS SUMMARY | 2023-11-13 17:02 | XMS_ITS | Encounter Summary ---
Author Organization [facility] Address [address] [place] [address] Care Team Providers Care Shoe Repair Supervisor Name Role Phone Kayleigh Mallory WILFREDO Primary Care Provider [phone] Encounter Details Date Type Department Care Team (Late st Contact Info) Description 12/19/2020 Orders Only [facility] Rheumatology & Immunology - [facility] [address] [place], [place] [phone] Harsh Malloy, ELBERT 111 [facility], [address] [place] [address] Social History Tobacco Use Types [...] Description 11/24/2023 10:00 EDT Telemedicine [facility] Rheumatology & Immunology - [address] [phone] Harsh Malloy NP 111 [facility], [address] [place] [address] documented as of this encounter Procedures Procedure Name Priority Date/Time Associated Diagnosis Comments COMPLETE BLOOD COUNT AND DIFFERENTIAL Routine 12/19/2020 7:09 EDT COMPREHENSIVE METABOLIC PANEL (CMP) Routine 12/19/2020 7:09 EDT documented in this encounter Results * (ABNORMAL) COMPLETE BLOOD COUNT AND DIFFERENTIAL (12/19/2020 7:09 EDT) WBC, External 5.38 [facility] RBC, External 4.13 [facility] Hemoglobin, External 12.0 [facility] HCT, External 37.7 [facility] MCV, External 91.3 [facility] MCH, External 29.1 [facility] MCHC, External 31.8(A) 32.0 - 36.0 % [facility] Comment:Low PLT, External 311 [facility] RDW-CV, External 14.0 [facility] Neutrophils, External 62.4 [facility] Lymphocytes, External 23.4 [facility] Monocytes, External 10.6 [facility] Eosinophils, External 2.8 [facility] Basophils, External 0.6 [facility] ABS Neutrophils, External 3.36 [facility] ABS Lymphs, External 1.36 [facility] ABS Monocytes, External 0.57 [facility] ABS Eosinophils, External 0.15 [facility] ABS Basophils, External 0.03 [facility] Blood VENOUS BLOOD / Unknown 12/19/2020 7:09 EDT Harsh Malloy DUMPING MACHINE OPERATOR PACKAGES & DNA PROB E ORDERABLES Performing Organization Address City/[facility]/ZIP Co de Phone Number [facility] * (ABNORMAL) COMPREHENSIVE METABOLIC PANEL (CMP) (12/19/2020 7:09 EDT) GFR, Calculated, External 52.16 [facility] Glucose, Serum, External 96 [facility] Albumin, External 3.9 [facility] Total Alkaline Phosphatase, External 65 [facility] ALT, External 18 [facility] AST, External 17 [facility] BUN, External 9 [facility] Calculated Calcium, External [facility] Calcium, External 8.9 [facility] Chloride, External 103 [facility] CO2, External 29.7 [facility] Creatinine, External 1.1(A) 0.55 - 1.02 mg/dL [facility] Comment:High Fasting?, External [facility] Potassium, External 4.8 [facility] Sodium, External 140 [facility] Total Protein, External 7.0 [facility] Bilirubin, Total, External 0.6 [facility] Blood VENOUS BLOOD / Unknown 12/19/2020 7:09 EDT Harsh Malloy DUMPING MACHINE OPERATOR CHEMISTRY & BLOOD G ORDERABLES Performing Organization Address City/[facility]/ZIP Co de Phone Number [facility] documented in this encounter Visit Diagnoses Not on filedocumented in this encounter Care Teams Shoe Repair Supervisor Relationship Specialty Start Date End Date Kayleigh Mallory FNP [address] [place] [address] [place] [phone] PCP - General 02/04/19 documented as of this encounter
--- OUTSIDE RECORDS SUMMARY | 2023-11-13 17:02 | XMS_ITS | Encounter Summary ---
Author Organization [facility] Address [address] [place] [address] Care Team Providers Care Turner Splitter Machine Operator Name Role Phone Kayleigh Mallory WILFREDO Primary Care Provider [phone] Reason for Visit * Reason Onset Date Comments Medications Refill 10/23/2020 Encounter Details Date Type Department Care Team (Late st Contact Info) Description 10/23/2020 Refill [facility] Rheumatology & Immunology - [facility] [address] [place] [address] Harsh Malloy, CEMETERY WORKER 111 [facility], [address] [place] [address] Medications Refill Social History Tobacco [...] Tablet by mouth daily. 90 Tablet 3 10/23/2020 08/28/2021 documented in this encounter Miscellaneous Notes * Telephone Encounter - Kim Menjivar - 10/23/2020 1034 EDT Requested Prescriptions Pending Prescriptions Disp Refills ??? folic acid (FOLVITE) 1 mg tablet 90 Tablet 3 Sig: Take 1 Tablet by mouth daily. Pharmacy: [facility] Last Refill Date: 08/24/20 Last Visit Date: 08/24/20 Next Non-Acute Visit Date Scheduled with Care Team: 03/01/2021 KIM MENJIVAR RN 10/23/2020 10:34 documented in this encounter Plan of Treatment Upcoming Encounters Date Type Department Care Team (Late st Contact Info) Description 11/24/2023 10:00 EDT Telemedicine [facility] Rheumatology & Immunology - [facility] [address] [place], [place] [address] Harsh Malloy NP 111 [facility], [address] [place] [address] documented as of this encounter Visit Diagnoses Not on filedocumented in this encounter Discontinued Medications Medication Sig Discontinue Reason Start Date End Da te folic acid (FOLVITE) 1 mg tablet Take 1 Tab by mouth daily. Reorder 08/24/2020 10/23/2020 documented as of this encounter Care Teams Turner Splitter Machine Operator Relationship Specialty Start Date End Date Kayleigh Mallory FNP [address] [place] [address] [address] [place] [phone] PCP - General 02/04/19 documented as of this encounter
--- OUTSIDE RECORDS SUMMARY | 2023-11-13 17:02 | XMS_ITS | Encounter Summary ---
Author Organization [facility] Address [address] [place] [address] Care Team Providers Care Hemmer Lockstitch Name Role Phone Kayleigh Mallory WILFREDO Primary Care Provider [phone] Encounter Details Date Type Department Care Team ([facility] Contact Info) Description 05/15/2020 Specialty Pharmacy [facility] - [facility] [address] [place] [address] Eric Redmond RPH Social History Tobacco Use [...] Description 11/24/2023 10:00 EDT Telemedicine [facility] Rheumatology & Immunology - [address] [address] Harsh Malloy, FIELD ASSEMBLY SUPERVISOR 111 [facility], [address] [place] [phone] documented as of this encounter Visit Diagnoses Not on filedocumented in this encounter Care Teams Hemmer Lockstitch Relationship Specialty Start Date End Date Kayleigh Mallory FNP 26 [facility] [address] [place] [phone] PCP - General 02/04/19 documented as of this encounter
--- OUTSIDE RECORDS SUMMARY | 2023-11-13 17:02 | XMS_ITS | Encounter Summary ---
Author Organization [facility] Address [address] [place] [address] Care Team Providers Care Sack Keeper Name Role Phone Kayleigh Mallory WILFREDO Primary Care Provider [phone] Encounter Details Date Type Department Care Team ([facility] Contact Info) Description 07/19/2020 Specialty Pharmacy [facility] Ambulatory Pharmacy - [facility] [address] [place] [address] Eric Redmond RPH Social History Tobacco Use [...] Info) Description 11/24/2023 10:00 EDT Telemedicine [facility] Rheumatology & Immunology - [address] [address] Harsh Malloy, INSULATION BATTING MACHINE OPERATOR 111 [facility], [address] [place] [phone] documented as of this encounter Visit Diagnoses Not on filedocumented in this encounter Care Teams Sack Keeper Relationship Specialty Start Date End Date Kayleigh Mallory FNP 26 [facility] [address] [place] [phone] PCP - General 02/04/19 documented as of this encounter
--- OUTSIDE RECORDS SUMMARY | 2023-11-13 17:02 | XMS_ITS | Encounter Summary ---
Author Organization [facility] Address [address] [place] [address] Care Team Providers Care Foreign Correspondent Name Role Phone Kayleigh Mallory WILFREDO Primary Care Provider [phone] Encounter Details Date Type Department Care Team (Late st Contact Info) Description 12/20/[address] [facility] - [facility] [address] [place] [address] Eric Redmond RPH Social History Tobacco Use [...] [facility]ology - [address] [phone] Harsh Malloy, METER TECHNICIAN 111 [facility], [address] [place] [address] documented as of this encounter Visit Diagnoses Not on filedocumented in this encounter Care Teams Foreign Correspondent Relationship Specialty Start Date End Date Kayleigh Mallory FNP 26 [facility] [address] [place] [phone] PCP - General 02/04/19 documented as of this encounter
--- OUTSIDE RECORDS SUMMARY | 2023-11-13 17:02 | XMS_ITS | Encounter Summary ---
Author Organization [facility] Address [address] [place] [address] Care Team Providers Care Public Health Registrar Name Role Phone Kayleigh Mallory WILFREDO Primary Care Provider [phone] Encounter Details Date Type Department Care Team (Late st Contact Info) Description 01/17/2020 Specialty Pharmacy [facility] Ambulatory Pharmacy - [facility] [place] [facility] [address] [place] [address] Eric Redmond RPH Social History Tobacco Use [...] Contact Info) Description 11/24/2023 10:00 EDT Telemedicine [facility] Rheumatology & Immunology - [address] [address] Harsh Malloy, FACULTY DEAN 111 [facility], [address] [place] [address] documented as of this encounter Visit Diagnoses Not on filedocumented in this encounter Care Teams Public Health Registrar Relationship Specialty Start Date End Date Kayleigh Mallory FNP 26 [facility] [address] [place] [phone] PCP - General 02/04/19 documented as of this encounter
--- OUTSIDE RECORDS SUMMARY | 2023-11-13 17:02 | XMS_ITS | Encounter Summary ---
Author Organization [facility] Address [address] [place] [address] Care Team Providers Care Production Broacher Name Role Phone Kayleigh Mallory WILFREDO Primary Care Provider [phone] Reason for Visit * Reason Comments Follow-up Encounter Details Date Type Department Care Team (Late st Contact Info) Description 08/24/2020 10:00 EDT Office Visit [facility] Rheumatology & Immunology - [address] [phone] Harsh Malloy, ELBERT [address] [place] [address], [facility] 5 [place] [address] Psoriatic arthropathy ([facility]) (Primary Dx); Encounter for long-term (current) use [...] * Patient Instructions* Harsh Malloy APRN - 08/24/2020 10:00 EDT 1. Continue current meds. 2. Labs every 3-4 months 3. F.u 6 months documented in this encounter Ordered Prescriptions Prescription Sig Dispensed Refills Start Date End Da te folic acid (FOLVITE) 1 mg tablet Take 1 Tab by mouth daily. 90 Tab 3 08/24/2020 10/23/2020 documented in this encounter Progress Notes * Harsh Malloy APRN - 08/24/2020 1000 EDT [...] participate in today's encounter visit: Harsh Malloy, BURLAP SPREADER No psoriasis Intermittent joint flares - dependent [...] to avoid sx and needs to see PROJECT ANALYST to check anterior pelvic tissue Patient Active [...] [facility] Rheumatology & Immunology - [place] [address] [place] [address] Harsh Malloy, COMPUTER ARCHITECT 111 [facility], [address] [place] [address] documented as of this encounter Visit Diagnoses Diagnosis Psoriatic arthropathy ([facility])- Primary Psoriatic arthropathy Encounter for long-term (current) use of medications Encounter for long-term (current) use of other medications documented in this encounter Discontinued Medications Medication Sig Discontinue Reason Start Date End Da te folic acid (FOLVITE) 1 mg tablet TAKE 1 TABLET BY MOUTH EVERY DAY Reorder 10/23/2019 08/24/2020 documented as of this encounter Care Teams Production Broacher Relationship Specialty Start Date End Date Kayleigh Mallory FNP 26 [facility] [address] [place] [address] PCP - General 02/04/19 documented as of this encounter
--- OUTSIDE RECORDS SUMMARY | 2023-11-13 17:02 | XMS_ITS | Encounter Summary ---
Author Organization [facility] Address [address] [place] [address] Care Team Providers Care Electrical Unit Rebuilder Name Role Phone Kayleigh Mallory WILFREDO Primary Care Provider [phone] Reason for Visit * Reason Comments Other Encounter Details Date Type Department Care Team (Late st Contact Info) Description 06/13/2020 [facility] Rheumatology & Immunology - [facility] [address] [place], [place] [phone] Harsh Malloy, SHOE SEWING MACHINE OPERATOR AND TENDER 111 [facility], [address] [place] [address] Other Social History Tobacco Use [...] TABLETS BY MOUTH ONCE A WEEK 120 Tab 1 06/19/2020 12/11/2020 documented in this encounter Miscellaneous Notes * Telephone Encounter - China Penn RN - 06/19/2020 1010 EST Received lab results from 04/05/21 from [facility]. Pt isn't due again for another month or so. Refilled her methotrexate. * Telephone Encounter - China Penn RN - 06/17/2020 1841 EST E mailed pt requesting that she do labs. documented in this encounter Plan of Treatment Upcoming Encounters Date Type Department Care Team (Late st Contact Info) Description 11/24/2023 10:00 EDT Telemedicine [facility] Rheumatology & Immunology - [address] [address] Harsh Malloy, ELBERT 111 [facility], [address] [place] [address] documented as of this encounter Visit Diagnoses Not on filedocumented in this encounter Discontinued Medications Medication Sig Discontinue Reason Start Date End Da te methotrexate 2.5 mg tablet Take 10 Tabs by mouth once a week. 03/31/2020 06/19/2020 documented as of this encounter Care Teams Electrical Unit Rebuilder Relationship Specialty Start Date End Date Kayleigh Mallory FNP [address] [place] [address] [address] [place] [phone] PCP - General 02/04/19 documented as of this encounter
--- OUTSIDE RECORDS SUMMARY | 2023-11-13 17:02 | XMS_ITS | Encounter Summary ---
Author Organization [facility] Address [address] [place] [address] Care Team Providers Care Computer Systems Hardware Analyst Name Role Phone Kayleigh Mallory WILFREDO Primary Care Provider [phone] Encounter Details Date Type Department Care Team (Late st Contact Info) Description 10/26/2019 Orders Only [facility] Rheumatology & Immunology - [facility] [address] [place] [address] China Penn RN Psoriatic arthritis ([facility]) (Primary Dx); Long-term use of high-risk medication Social History [...] as of this encounter Progress Notes * China Penn, RN - 10/26/2019 1554 EDT New standing lab orders faxed to [facility]. documented in this encounter Plan of Treatment Upcoming Encounters Date Type Department Care Team (Late st Contact Info) Description 11/24/2023 10:00 EDT Telemedicine [facility] Rheumatology & Immunology - [facility] [address] [place], [place] [address] Harsh Malloy NP 111 [facility], [address] [place] [phone] documented as of this encounter Visit Diagnoses Diagnosis Psoriatic arthritis ([facility])- Primary Psoriatic arthropathy Long-term use of high-risk medication documented in this encounter Care Teams Computer Systems Hardware Analyst Relationship Specialty Start Date End Date Kayleigh Mallory FNP 26 [facility] 185 [place] [address] PCP - General 02/04/19 documented as of this encounter
--- OUTSIDE RECORDS SUMMARY | 2023-11-13 17:02 | XMS_ITS | Encounter Summary ---
Author Organization [facility] Address [address] [place] [address] Care Team Providers Care Ballet Company Member Name Role Phone Kayleigh Mallory WILFREDO Primary Care Provider [phone] Encounter Details Date Type Department Care Team ([facility] Contact Info) Description 08/21/2020 Specialty Pharmacy [facility] - [facility] [address] [place] [address] Eric Redmond RPH Social History Tobacco Use [...] Contact Info) Description 11/24/2023 10:00 EDT Telemedicine [facility] Rheumatology & Immunology - [address] [address] Harsh Malloy, ROVING CAN TENDER 111 [facility], [address] [place] [phone] documented as of this encounter Visit Diagnoses Not on filedocumented in this encounter Care Teams Ballet Company Member Relationship Specialty Start Date End Date Kayleigh Mallory FNP 26 [facility] [address] [place] [phone] PCP - General 02/04/19 documented as of this encounter
--- OUTSIDE RECORDS SUMMARY | 2023-11-13 17:02 | XMS_ITS | Encounter Summary ---
Author Organization [facility] Address [address] [place] [address] Care Team Providers Care Handicraft Or Hobby Shop Manager Name Role Phone Kayleigh Mallory WILFREDO Primary Care Provider [phone] Encounter Details Date Type Department Care Team (Late st Contact Info) Description 11/08/2019 Specialty Pharmacy [facility] [address] [address] Eric Redmond [place] Social History Tobacco Use [...] Info) Description 11/24/2023 10:00 EDT Telemedicine [facility] Rheumatology & Immunology - [facility] [address] [place] [address] Harsh Malloy, DIAL SCREW ASSEMBLER 111 [facility], [address] [place] [address] documented as of this encounter Visit Diagnoses Not on filedocumented in this encounter Care Teams Handicraft Or Hobby Shop Manager Relationship Specialty Start Date End Date Kayleigh Mallory FNP [address] [place] [address] [address] [place] [phone] PCP - General 02/04/19 documented as of this encounter
--- OUTSIDE RECORDS SUMMARY | 2023-11-13 17:02 | XMS_ITS | Encounter Summary ---
Author Organization [facility] Address [address] [place] [address] Care Team Providers Care Motor Equipment Commanding Officer Name Role Phone Kayleigh Mallory WILFREDO Primary Care Provider [phone] Reason for Visit * Reason Comments Other Encounter Details Date Type Department Care Team (Late st Contact Info) Description 10/09/2019 [facility] Rheumatology & Immunology - [facility] [place] [facility] [address] [place], [place] [phone] Harsh Malloy, ELBERT 111 [facility], [address] [place] [address] Other Social History Tobacco Use [...] 10:00 EDT Telemedicine [facility] Rheumatology & Immunology - [facility] [place] [facility] [address] [place], [place] [address] Harsh Malloy, DEAN OF WOMEN 111 [facility], [address] [place] [phone] documented as of this encounter Visit Diagnoses Not on filedocumented in this encounter Care Teams Motor Equipment Commanding Officer Relationship Specialty Start Date End Date Kayleigh Mallory FNP 26 [facility] [address] [place] [address] PCP - General 02/04/19 documented as of this encounter
--- OUTSIDE RECORDS SUMMARY | 2023-11-13 17:02 | XMS_ITS | Encounter Summary ---
Author Organization [facility] Address [address] [place] [address] Care Team Providers Care Mechanical Engineering Lecturer Name Role Phone Kayleigh Mallory WILFREDO Primary Care Provider [phone] Encounter Details Date Type Department Care Team ([facility] Contact Info) Description 09/26/2020 Specialty Pharmacy [facility] Ambulatory Pharmacy - [facility] [address] [place] [address] Eric Redmond RPH Social History Tobacco Use [...] Contact Info) Description 11/24/2023 10:00 EDT Telemedicine [facility] Rheumatology & Immunology - [address] [phone] Harsh Malloy, EDUCATIONAL INSTITUTION PRESIDENT 111 [facility], [address] [place] [address] documented as of this encounter Visit Diagnoses Not on filedocumented in this encounter Care Teams Mechanical Engineering Lecturer Relationship Specialty Start Date End Date Kayleigh Mallory FNP 26 [facility] [address] [place] [phone] PCP - General 02/04/19 documented as of this encounter
--- OUTSIDE RECORDS SUMMARY | 2023-11-13 17:02 | XMS_ITS | Encounter Summary ---
Author Organization [facility] Address [address] [place] [address] Care Team Providers Care Construction Helper Name Role Phone Kayleigh Mallory WILFREDO Primary Care Provider [phone] Encounter Details Date Type Department Care Team (Late st Contact Info) Description 05/08/2021 [facility] Rheumatology & Immunology - [facility] [address] [place], [place] [phone] Harsh Malloy, ELBERT 111 [facility], [address] [place] [address] Social History Tobacco Use Types [...] Description 11/24/2023 10:00 EDT Telemedicine [facility] Rheumatology & Immunology - [address] [phone] Harsh Malloy NP 111 [facility], [address] [place] [address] documented as of this encounter Procedures Procedure Name Priority Date/Time Associated Diagnosis Comments COMPLETE BLOOD COUNT AND DIFFERENTIAL Routine 05/08/2021 COMPREHENSIVE METABOLIC PANEL (CMP) Routine 05/08/2021 documented in this encounter Results * COMPREHENSIVE METABOLIC PANEL (CMP) (05/08/2021) GFR, Calculated, External 58.22 [facility] POINT [facility] C[facility] Glucose, Serum, External 72 [facility]INT [facility] Comment:low Albumin, External 3.7 [facility]INT [facility] Total Alkaline Phosphatase, External 91 [facility] ALT, External 22 [facility] AST, External 18 [facility] BUN, External 18 [facility] Calculated Calcium, External [facility]INT [facility] Calcium, External 8.6 [facility] Chloride, External 102 [facility] CO2, External 29.1 [facility] Creatinine, External 1.0 [facility]INT [facility] Fasting?, External [facility] Potassium, External 4.2 [facility]INT [facility] Sodium, External 139 [facility]INT [facility] Total Protein, External 7.0 [facility]INT [facility] Bilirubin, Total, External 0.4 [facility]INT [facility] Blood VENOUS BLOOD / Unknown 05/08/2021 Harsh Malloy NP CHEMISTRY & BLOOD G ORDERABLES [facility] * COMPLETE BLOOD COUNT AND DIFFERENTIAL (05/08/2021) WBC, External 7.36 [facility] POINT OF CARE [...] ABS Monocytes, External 0.63 [facility] POINT [facility] CARE ABS Eosinophils, External 0.09 [facility] POINT OF CARE ABS Basophils, External 0.02 [facility] POINT OF CARE Blood VENOUS BLOOD / Unknown 05/08/2021 Harsh Malloy MINISTER PACKAGES & DNA PROB E ORDERABLES [facility] POINT OF CARE documented in this encounter Visit Diagnoses Not on filedocumented in this encounter Care Teams Construction Helper Relationship Specialty Start Date End Date Kayleigh Mallory FNP [address] [place] [address] [address] [place] [address] PCP - General 02/04/19 documented as of this encounter
--- OUTSIDE RECORDS SUMMARY | 2023-11-13 17:02 | XMS_ITS | Encounter Summary ---
Author Organization [facility] Address [address] [place] [address] Care Team Providers Care Lining Ironer Name Role Phone Kayleigh Mallory WILFREDO Primary Care Provider [phone] Encounter Details Date Type Department Care Team (Late st Contact Info) Description 04/14/2020 Specialty Pharmacy [facility] Ambulatory Pharmacy - [facility] [address] [place] [address] Eric Redmond RPH Social History Tobacco Use [...] Contact Info) Description 11/24/2023 10:00 EDT Telemedicine [facility] Rheumatology & Immunology - [address] [phone] Harsh Malloy, APPRAISER AUDITOR 111 [facility], [address] [place] [address] documented as of this encounter Visit Diagnoses Not on filedocumented in this encounter Care Teams Lining Ironer Relationship Specialty Start Date End Date Kayleigh Mallory FNP 26 [facility] [address] [place] [address] PCP - General 02/04/19 documented as of this encounter
--- OUTSIDE RECORDS SUMMARY | 2023-11-13 17:02 | XMS_ITS | Encounter Summary ---
Author Organization [facility] Address [address] [place] [address] Care Team Providers Care Preschool Aide Name Role Phone Kayleigh Mallory WILFREDO Primary Care Provider [phone] Reason for Visit * Reason Comments Follow-up 6 months Joint Pain knees and hands Flu Vaccine Encounter Details Date Type Department Care Team (Late st Contact Info) Description 02/08/2020 9:30 EDT Office Visit [facility] Rheumatology & Immunology - [address] [phone] Harsh Malloy, ELBERT 111 [facility], [address] [place] [address] Psoriatic arthropathy ([facility]) (Primary Dx); Encounter for long-term (current) use of medications; Need for influenza vaccination Social History Tobacco Use Types Packs/Day [...] Reading Time Taken Comments Blood Pressure 124/72 02/08/2020932 EDT Pulse 74 02/08/2020932 EDT Temperature - - Respiratory Rate 14 02/08/2020932 EDT Oxygen Saturation - - Inhaled Oxygen Concentration - - Weight 74.8 kg (165 lb) 02/08/2020932 EDT Height 162 cm (5' 3.78) 02/08/2020932 EDT Body Mass Index 28.52 02/08/2020932 EDT documented in this encounter Functional Status [...] * Patient Instructions* Harsh Malloy APRN - 02/08/2020 9:30 EDT 1. Continue current meds. 2 labs every 3-4 months 3. Flu vaccine 4. Recommend arch supports - danform or skiirack 5. F/u 6 months documented in this encounter Progress Notes * Harsh Malloy APRN - 02/08/2020929 EDT Images from the original note were [...] allergies ??? Psoriasis ??? 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 Abnormal [...] bilaterally, bony hypertrophy bilateral ankles, No significant tenderness,swelling, effusions, erythema or warmth is present. Appropriate range of motion present. ?? LABS: 11/07/2017 CMP normal CBC normal except RBC 3.92 H/H 11.9/35.4 05/14/2017 CMP normal Cr. 0.89 CBC normal RAPID3 Summary Functional Status: 0 Pain Tolerance: 3 Global Estimate: 0 - Very Well Score: 3 Interpretation: NearRemission ASSESSMENT: 1. Psoriasis with arthropathy- , no [...] Contact Info) Description 11/24/2023 10:00 EDT Telemedicine [facility] Rheumatology & Immunology - [facility] [address] [place] [address] Harsh Malloy, REFRACTORY MANAGER 111 [facility], [address] [place] [phone] documented as of this encounter Visit Diagnoses Diagnosis Psoriatic arthropathy ([facility])- Primary Psoriatic arthropathy Encounter for long-term (current) use of medications Encounter for long-term (current) use of other medications Need for influenza vaccination Need for prophylactic vaccination and inoculation against influenza documented in this encounter Orders Immunization/Injection Count Last Ordered Date First Ordered Date INFLUENZA VACCINE QUAD PF 0. 5 ML IM (6 MOS+) 1 02/08/2020 documented in this encounter Care Teams Preschool Aide Relationship Specialty Start Date End Date Kayleigh Mallory FNP 26 [facility] [address] [place] [address] PCP - General 02/04/19 documented as of this encounter
--- OUTSIDE RECORDS SUMMARY | 2023-11-13 17:02 | XMS_ITS | Encounter Summary ---
Author Organization [facility] Address [address] [place] [address] Care Team Providers Care Cia Agent Name Role Phone Kayleigh Mallory WILFREDO Primary Care Provider [phone] Encounter Details Date Type Department Care Team ([facility] Contact Info) Description 10/18/2020 Specialty Pharmacy [facility] Ambulatory Pharmacy - [facility] [address] [place] [address] Eric Redmond RPH Social History Tobacco Use [...] Contact Info) Description 11/24/2023 10:00 EDT Telemedicine [facility] Rheumatology & Immunology - [address] [address] Harsh Malloy, LEGAL TRANSCRIPTIONIST 111 [facility], [address] [place] [phone] documented as of this encounter Visit Diagnoses Not on filedocumented in this encounter Care Teams Cia Agent Relationship Specialty Start Date End Date Kayleigh Mallory FNP 26 [facility] [address] [place] [address] PCP - General 02/04/19 documented as of this encounter
--- OUTSIDE RECORDS SUMMARY | 2023-11-13 17:02 | XMS_ITS | Encounter Summary ---
Author Organization [facility] Address [address] [place] [address] Care Team Providers Care Retail Tire Sales Manager Name Role Phone Kayleigh Mallory WILFREDO Primary Care Provider [phone] Encounter Details Date Type Department Care Team ([facility] Contact Info) Description 06/19/2020 Specialty Pharmacy [facility] Ambulatory Pharmacy - [facility] [address] [place] [address] Eric Redmond RPH Social History Tobacco Use [...] Description 11/24/2023 10:00 EDT Telemedicine [facility] Rheumatology & Immunology - [address] [address] Harsh Malloy, DISTRIBUTION ESTIMATOR 111 [facility], [address] [place] [address] documented as of this encounter Visit Diagnoses Not on filedocumented in this encounter Care Teams Retail Tire Sales Manager Relationship Specialty Start Date End Date Kayleigh Mallory FNP 26 [facility] [address] [place] [phone] PCP - General 02/04/19 documented as of this encounter
--- OUTSIDE RECORDS SUMMARY | 2023-11-13 17:02 | XMS_ITS | Encounter Summary ---
Author Organization [facility] Address [address] [place] [address] Care Team Providers Care Export Packer Name Role Phone Kayleigh Mallory WILFREDO Primary Care Provider [phone] Reason for Visit * Reason Onset Date Comments Other Medications Refill 12/17/2020 Medications Refill 12/19/2020 Encounter Details Date Type Department Care Team (Late st Contact Info) Description 12/09/2020 Refill [facility] Rheumatology & Immunology - [facility] [address] [place], [place] [phone] Harsh Malloy NP 111 [facility], [address] [place] [address] Other; Medications Refill; Medications Refill Social History Tobacco Use Types [...] as of this encounter Miscellaneous Notes * Addendum Note - Kim Menjivar - 12/19/2020 1001 EDTAddended by: KIM MENJIVAR on: 12/19/2020 10:01 Modules accepted: Orders * Telephone Encounter - China Penn RN - 12/17/20202231 EDTFrom: Nina Boothe Sent: 12/14/2020 11:07 EDT To: Rheumatology Nurse Barber I am scheduled for Friday....that's the soonest that they can get me in. Last I spoke to Harsh, I was on a 3-4 month schedule so it would be just about 4 months now. If that has changed, please let me know and I will adjust my calendar. Thank you for your assistance. documented in this encounter Plan of Treatment Upcoming Encounters Date Type Department Care Team (Late st Contact Info) Description 11/24/2023 10:00 EDT Telemedicine [facility] Rheumatology & Immunology - [address] [address] Harsh Malloy NP 111 [facility], [address] [place] [address] documented as of this encounter Visit Diagnoses Diagnosis Psoriatic arthritis ([facility])- Primary Psoriatic arthropathy Encounter for long-term (current) use of medications Encounter for long-term (current) use of other medications Long-term use of high-risk medication documented in this encounter Care Teams Export Packer Relationship Specialty Start Date End Date Kayleigh Mallory FNP [address] [address] PCP - General 02/04/19 documented as of this encounter
--- OUTSIDE RECORDS SUMMARY | 2023-11-13 17:02 | XMS_ITS | Encounter Summary ---
Author Organization [facility] Address [address] [place] [address] Care Team Providers Care Digital X Ray Service Engineer Name Role Phone Kayleigh Mallory WILFREDO Primary Care Provider [phone] Encounter Details Date Type Department Care Team (Late st Contact Info) Description 08/12/2019 Telephone [facility] Rheumatology & Immunology - [facility] [address] [place], [place] [phone] Harsh Malloy NP 111 [facility], [facility] [address] [place] [address] Social History Tobacco Use Types [...] encounter Miscellaneous Notes * Telephone Encounter - Harsh Malloy APRN - 08/12/2019 9835 EDT Left g- her informed consent form is an imbeded hyperlink in her zoom invitation, it is not an attachment. documented in this encounter Plan of Treatment Upcoming Encounters Date Type Department Care Team (Late st Contact Info) Description 11/24/2023 10:00 EDT Telemedicine [facility] Rheumatology & Immunology - [address] [address] Harsh Mallyo, PROMOTION OFFICER 111 [facility], [address] [place] [address] documented as of this encounter Visit Diagnoses Not on filedocumented in this encounter Care Teams Digital X Ray Service Engineer Relationship Specialty Start Date End Date Kayleigh Mallory FNP 26 [facility] [address] [place] [address] PCP - General 02/04/19 documented as of this encounter
--- OUTSIDE RECORDS SUMMARY | 2023-11-13 17:02 | XMS_ITS | Encounter Summary ---
Author Organization [facility] Address [address] [place] [address] Care Team Providers Care Integration Solution Architect Name Role Phone Kayleigh Mallory WILFREDO Primary Care Provider [phone] Encounter Details Date Type Department Care Team (Late st Contact Info) Description 06/16/2019 Specialty Pharmacy [facility] [address] [address] Eric Redmond [place] Social History Tobacco Use [...] Contact Info) Description 11/24/2023 10:00 EDT Telemedicine [facility] Rheumatology & Immunology - [facility] [address] [place] [address] Harsh Malloy, FOURDRINIER MACHINE TENDER 111 [facility], [address] [place] [address] documented as of this encounter Visit Diagnoses Not on filedocumented in this encounter Care Teams Integration Solution Architect Relationship Specialty Start Date End Date Kayleigh Mallory FNP [address] [place] [address] [address] [place] [phone] PCP - General 02/04/19 documented as of this encounter
--- OUTSIDE RECORDS SUMMARY | 2023-11-13 17:02 | XMS_ITS | Encounter Summary ---
Author Organization [facility] Address [address] [place] [address] Care Team Providers Care Ehr Trainer Name Role Phone Kayleigh Mallory WILFREDO Primary Care Provider [phone] Reason for Visit * Reason Onset Date Comments Medications Refill 05/17/2020 Encounter Details Date Type Department Care Team (Late st Contact Info) Description 05/17/2020 Refill [facility] Rheumatology & Immunology - [address] [address] Harsh Malloy, PRODUCT ADVISOR 111 [facility], [address] [place] [address] Medications Refill Social History Tobacco [...] every 14 days. Specialty. 6 Pen 1 05/18/2020 12/20/2020 documented in this encounter Miscellaneous Notes * Telephone Encounter - Jeanne Franklin - 05/17/2020 1323 EST Medication Request Medication: Humira Medication refill: yes Medication dose change: no Refill due: May outreach Pharmacy: [facility] Renewal of Humira (adalimumab) is required for continued use; order sent per refill protocol to [facility] for dispensing. Follow-up visit scheduled with Harsh Malloy NP on 08/10/20. Eric Redmond, Pharm.D., [facility] Pharmacist Clinician - Rheumatology 05/18/2020 documented in this encounter Plan of Treatment Upcoming Encounters Date Type Department Care Team (Late st Contact Info) Description 11/24/2023 10:00 EDT Telemedicine [facility] Rheumatology & Immunology - [address] [address] Harsh Malloy NP [address] [place] [address], [address] [place] [address] documented as of this encounter Visit Diagnoses Not on filedocumented in this encounter Discontinued Medications Medication Sig Discontinue Reason Start Date End Da te adalimumab (HUMIRA,CF, PEN) 40 mg/0.4 mL pen Inject 0.4 mL into the skin every 14 days. Specialty. Reorder 11/18/2019 05/17/2020 documented as of this encounter Care Teams Ehr Trainer Relationship Specialty Start Date End Date Kayleigh Mallory FNP [address] [place] [address] [place] [phone] PCP - General 02/04/19 documented as of this encounter
--- OUTSIDE RECORDS SUMMARY | 2023-11-13 17:02 | XMS_ITS | Encounter Summary ---
Author Organization [facility] Address [address] [place] [address] Care Team Providers Care Base Draw Operator Name Role Phone Kayleigh Mallory WILFREDO Primary Care Provider [phone] Encounter Details Date Type Department Care Team (Late st Contact Info) Description 03/29/2020 Specialty Pharmacy [facility] - [facility] [address] [place] [address] Leta Medina, [facility] Social History Tobacco Use Types Packs/Day Years [...] [facility] Rheumatology & Immunology - [address] [phone] Harsh Malloy, DIRECTOR CAMP 111 [facility], [address] [place] [phone] documented as of this encounter Visit Diagnoses Not on filedocumented in this encounter Care Teams Base Draw Operator Relationship Specialty Start Date End Date Kayleigh Mallory FNP 26 [facility] [address] [place] [address] PCP - General 02/04/19 documented as of this encounter
--- OUTSIDE RECORDS SUMMARY | 2023-11-13 17:02 | XMS_ITS | Encounter Summary ---
Author Organization [facility] Address [address] [place] [address] Care Team Providers Care Applications Engineering Manager Name Role Phone Kayleigh Mallory WILFREDO Primary Care Provider [phone] Reason for Visit * Reason Comments Other Encounter Details Date Type Department Care Team (Late st Contact Info) Description 03/20/2020 Refill [facility] Rheumatology & Immunology - [facility] [address] [place], [place] [phone] Harsh Malloy, ELBERT 111 [facility], [address] [place] [address] Other Social History Tobacco Use [...] WITH LABS EVERY 3 TO 4 MONTHS 40 Tab 03/22/2020 03/27/2020 documented in this encounter Plan of Treatment Upcoming Encounters Date Type Department Care Team (Late st Contact Info) Description 11/24/2023 10:00 EDT Telemedicine [facility] Rheumatology & Immunology - [address] [address] Harsh Malloy, YOUTH NUTRITIONAL MONITOR 111 [facility], [address] [place] [phone] documented as of this encounter Visit Diagnoses Not on filedocumented in this encounter Discontinued Medications Medication Sig Discontinue Reason Start Date End Da te methotrexate 2.5 mg tablet Take 10 Tabs by mouth once a week. Labs every 3-4 months (last drawn 04/03/19) 08/12/2019 03/22/2020 documented as of this encounter Care Teams Applications Engineering Manager Relationship Specialty Start Date End Date Kayleigh Mallory FNP 26 [facility] [address] [place] [address] PCP - General 02/04/19 documented as of this encounter
--- OUTSIDE RECORDS SUMMARY | 2023-11-13 17:02 | XMS_ITS | Encounter Summary ---
Author Organization [facility] Address [address] [place] [address] Care Team Providers Care Silver Recovery Operator Name Role Phone Kayleigh Mallory WILFREDO Primary Care Provider [phone] Encounter Details Date Type Department Care Team ([facility] Contact Info) Description 04/23/2021 Specialty Pharmacy [facility] - [facility] [address] [place] [address] Eric Redmond RPH Social History Tobacco Use [...] Contact Info) Description 11/24/2023 10:00 EDT Telemedicine [facility] Rheumatology & Immunology - [address] [address] Harsh Malloy, SQUEEGEER AND FORMER 111 [facility], [address] [place] [phone] documented as of this encounter Visit Diagnoses Not on filedocumented in this encounter Care Teams Silver Recovery Operator Relationship Specialty Start Date End Date Kayleigh Mallory FNP 26 [facility] [address] [place] [phone] PCP - General 02/04/19 documented as of this encounter
--- OUTSIDE RECORDS SUMMARY | 2023-11-13 17:02 | XMS_ITS | Encounter Summary ---
Author Organization [facility] Address [address] [place] [address] Care Team Providers Care Senior Loan Processor Name Role Phone Kayleigh Mallory WILFREDO Primary Care Provider [phone] Encounter Details Date Type Department Care Team (Late st Contact Info) Description 08/10/2020 Abstract [facility] Rheumatology & Immunology - [facility] [address] [place], [place] [phone] Harsh Malloy, ELBERT 111 [facility], [address] [place] [address] Social History Tobacco Use Types [...] Contact Info) Description 11/24/2023 10:00 EDT Telemedicine [facility] Rheumatology & Immunology - [facility] [address] [place], [place] [phone] Harsh Malloy NP 111 [facility], [address] [place] [address] documented as of this encounter Procedures Procedure Name Priority Date/Time Associated Diagnosis Comments COMPLETE BLOOD COUNT AND DIFFERENTIAL Routine 08/10/2020 7:32 EDT COMPREHENSIVE METABOLIC PANEL (CMP) Routine 08/10/2020 7:32 EDT documented in this encounter Results * COMPLETE BLOOD COUNT AND DIFFERENTIAL (08/10/2020 7:32 EDT) WBC, External 6.48 [facility] RBC, External 4.67 [facility] Hemoglobin, External 14.4 [facility] HCT, External 43.4 [facility] MCV, External 92.9 [facility] MCH, External 30.8 [facility] MCHC, External 33.2 [facility] PLT, External 337 [facility] RDW-CV, External 13.0 [facility] Neutrophils, External 60 [facility] Lymphocytes, External 27.6 [facility] Monocytes, External 8.2 [facility] Eosinophils, External 3.1 [facility] Basophils, External 0.8 [facility] ABS Neutrophils, External 3.89 [facility] ABS Lymphs, External 1.79 [facility] ABS Monocytes, External 0.53 [facility] ABS Eosinophils, External 0.20 [facility] ABS Basophils, External 0.05 [facility] Blood VENOUS BLOOD / Unknown 08/10/2020 7:32 EDT Harsh Malloy ARMATURE WINDER PACKAGES & DNA PROB E ORDERABLES Performing Organization Address [facility] Co de Phone Number [facility] * COMPREHENSIVE METABOLIC PANEL (CMP) (08/10/2020 7:32 EDT) GFR, Calculated, External 52.16 [facility] Glucose, Serum, External 119 [facility] Comment:high Albumin, External 4.1 [facility] Total Alkaline Phosphatase, External 79 [facility] ALT, External 36 [facility] AST, External 27 [facility] BUN, External 13 [facility] Calculated Calcium, External [facility] Calcium, External 8.8 [facility] Chloride, External 103 [facility] CO2, External 27.3 [facility] Creatinine, External 1.1 [facility] Comment:high Fasting?, External [facility] Potassium, External 4.0 [facility] Sodium, External 141 [facility] Total Protein, External 7.6 [facility] Bilirubin, Total, External 0.7 [facility] Blood VENOUS BLOOD / Unknown 08/10/2020 7:32 EDT Harsh Malloy ARMATURE WINDER CHEMISTRY & BLOOD G ORDERABLES Performing Organization Address City[facility]/ZIP Co de Phone Number [facility] documented in this encounter Visit Diagnoses Not on filedocumented in this encounter Care Teams Senior Loan Processor Relationship Specialty Start Date End Date Kayleigh Mallory FNP 26 [facility] [address] [place] [phone] PCP - General 02/04/19 documented as of this encounter
--- OUTSIDE RECORDS SUMMARY | 2023-11-13 17:02 | XMS_ITS | Encounter Summary ---
Author Organization [facility] Address [address] [place] [address] Care Team Providers Care Provider Network Analyst Name Role Phone Kayleigh Mallory WILFREDO Primary Care Provider [phone] Encounter Details Date Type Department Care Team (Late st Contact Info) Description 05/08/2021 Orders Only [facility] Rheumatology & Immunology - [address] [phone] China Penn RN Psoriatic arthritis (HCC-CMS) (HCC) (HCC-CMS) (Primary Dx); Long-term use of high-risk medication [...] this encounter Progress Notes * China Penn, IMAN - 05/08/2021 1140 EST Pt arrived at lab [facility] to do orders but they had . New orders faxed to [phone]. documented in this encounter Plan of Treatment Upcoming Encounters Date Type Department Care Team (Late st Contact Info) Description 11/24/2023 10:00 EDT Telemedicine [facility] Rheumatology & Immunology - [facility] [address] [place], [place] [address] Harsh Malloy NP 111 [facility], [address] [place] [phone] documented as of this encounter Visit Diagnoses Diagnosis Psoriatic arthritis ([facility])- Primary Psoriatic arthropathy Long-term use of high-risk medication documented in this encounter Care Teams Provider Network Analyst Relationship Specialty Start Date End Date Kayleigh Mallory FNP [address] [place] [address] [address] [place] [phone] PCP - General 02/04/19 documented as of this encounter
--- OUTSIDE RECORDS SUMMARY | 2023-11-13 17:02 | XMS_ITS | Encounter Summary ---
Author Organization [facility] Address [address] [place] [address] Care Team Providers Care Liquid Hydrogen Plant Operator Name Role Phone Kayleigh Mallory WILFREDO Primary Care Provider [phone] Reason for Visit * Reason Onset Date Comments Prior Auth, Medication 11/15/2020 Humira Pe n 40mg/0.4mL (Q 14 days) Encounter Details Date Type Department Care Team (Late st Contact Info) Description 11/15/2020 Telephone [facility] Rheumatology & Immunology - [facility] [address] [place] [address] Harsh Malloy, GEOTHERMAL OPERATIONS MANAGER 111 [facility], [address] [place] [address] Prior Auth, Medication (Humira Pen 40mg/0.4mL (Q 14 days)) Social History Tobacco Use Types Packs/Day Years [...] encounter Miscellaneous Notes * Telephone Encounter - Abigail Castillo - 11/15/2020 1612 EDT Prior Authorization Approval Medication: Humira 40mg/0.4mL Approved: 11/15/2020 to 11/15/2021 Authorization Number: [id number] Benefits Information: [employer] Required Pharmacy: [facility] Preferred Pharmacy: [facility] Prior Authorization Submission Process Medication: Humira 40mg/0.4mL Insurance: [employer] Date PA Request Received: 11/15/2020 PA Submission Date: 11/15/2020 CMM Trammell: [id number] Submitted by: Abigail Phone: [phone] * Telephone Encounter - Iram Gates - 11/15/2020 1536 EDT SPRX Request for PA/Funding Drug Name: Humira Next Injection Date: now Insurance Rejection Reason: PA Funding Needed: No documented in this encounter Plan of Treatment Upcoming Encounters Date Type Department Care Team (Late st Contact Info) Description 11/24/2023 10:00 EDT Telemedicine [facility] Rheumatology & Immunology - [address] [address] Harsh Malloy NP [address] [place] [address], [address] [place] [address] documented as of this encounter Visit Diagnoses Not on filedocumented in this encounter Care Teams Liquid Hydrogen Plant Operator Relationship Specialty Start Date End Date Kayleigh Mallory FNP [address] [phone] PCP - General 02/04/19 documented as of this encounter
--- OUTSIDE RECORDS SUMMARY | 2023-11-13 17:02 | XMS_ITS | Encounter Summary ---
Author Organization [facility] Address [address] [place] [address] Care Team Providers Care Real Estate Professional Name Role Phone Kayleigh Mallory WILFREDO Primary Care Provider [phone] Reason for Visit * Reason Onset Date Comments Medications Refill 12/11/2020 Encounter Details Date Type Department Care Team (Late st Contact Info) Description 12/11/2020 Refill [facility] Rheumatology & Immunology - [facility] [address] [place] [address] Harsh Malloy, COOK SYRUP MAKER 111 [facility], [address] [place] [address] Medications Refill Social History Tobacco [...] A WEEK * please get labs JOSIAH 120 Tablet 12/14/2020 03/01/2021 documented in this encounter Miscellaneous Notes * Telephone Encounter - Talisha Loja RN - 12/14/2020 1031 EDTFrom: Nina Boothe To: Office of Harsh Malloy APRN Sent: 12/11/2020 16:46 EDT Subject: Medication Renewal Request Refills have been requested for the following medications: methotrexate 2.5 mg tablet [Harsh Malloy APRN] [id number] [address] [facility] documented in this encounter Plan of Treatment Upcoming Encounters Date Type Department Care Team (Late st Contact Info) Description 11/24/2023 10:00 EDT Telemedicine [facility] Rheumatology & Immunology - [address] [phone] Harsh Malloy NP 111 [facility], [facility] 5 [place] [phone] documented as of this encounter Visit Diagnoses Not on filedocumented in this encounter Discontinued Medications Medication Sig Discontinue Reason Start Date End Da te methotrexate 2.5 mg tablet TAKE 10 TABLETS BY MOUTH ONCE A WEEK Reorder 06/19/2020 12/11/2020 documented as of this encounter Care Teams Real Estate Professional Relationship Specialty Start Date End Date Kayleigh Mallory FNP [address] [place] [phone] PCP - General 02/04/19 documented as of this encounter
--- OUTSIDE RECORDS SUMMARY | 2023-11-13 17:02 | XMS_ITS | Encounter Summary ---
Author Organization [facility] Address [address] [place] [address] Care Team Providers Care Assistant Dean Name Role Phone Kayleigh Mallory WILFREDO Primary Care Provider [phone] Reason for Visit * Reason Onset Date Comments Medications Refill 05/10/2019 Encounter Details Date Type Department Care Team (Late st Contact Info) Description 05/10/2019 Telephone [facility] Ambulatory Pharmacy - [address] [phone] Harsh Malloy, LEARNING SUPPORT SPECIALIST [address] [place] [address], [address] [place] [address] Medications Refill Social History Tobacco [...] every 14 days. Specialty. 6 Pen 1 05/10/2019 11/18/2019 documented in this encounter Miscellaneous Notes * Telephone Encounter - Migdalia Quintanilla - 05/10/2019 1311 EST Refill Request Medication: Humira Refill due: Now Date of last fill: Pharmacy: [facility] Renewal of Humira (adalimumab) is required for continued use; order sent per refill protocol to [facility] Special[facility] for dispensing. Follow-up visit scheduled with Harsh Malloy NP on 08/13/19. Eric Redmond, Pharm.D., [facility] Pharmacist Clinician - Rheumatology 05/10/2019 documented in this encounter Plan of Treatment Upcoming Encounters Date Type Department Care Team (Late st Contact Info) Description 11/24/2023 10:00 EDT Telemedicine [facility] Rheumatology & Immunology - [address] [address] Harsh Malloy NP 111 [facility], [address] [place] [address] documented as of this encounter Visit Diagnoses Not on filedocumented in this encounter Discontinued Medications Medication Sig Discontinue Reason Start Date End Da te adalimumab (HUMIRA,CF, PEN) 40 mg/0.4 mL pen injector kit Inject 40 mg into the skin every 14 days. Specialty. Reorder 10/22/2018 05/10/2019 documented as of this encounter Care Teams Assistant Dean Relationship Specialty Start Date End Date Kayleigh Mallory FNP 26 [facility] [address] [place] [address] PCP - General 02/04/19 documented as of this encounter
--- OUTSIDE RECORDS SUMMARY | 2023-11-13 17:02 | XMS_ITS | Encounter Summary ---
Author Organization [facility] Address [address] [place] [address] Care Team Providers Care Employee Benefits Manager Name Role Phone Kayleigh Mallory WILFREDO Primary Care Provider [phone] Encounter Details Date Type Department Care Team (Late st Contact Info) Description 07/26/2019 Specialty Pharmacy [facility] Amb[facility] Pharm[facility] [address] [address] Eric Redmond [place] Social History Tobacco Use [...] [facility] Rheumatology & Immunology - [facility] [address] [place] [address] Harsh Malloy, RIPRAP MAN 111 [facility], [address] [place] [address] documented as of this encounter Visit Diagnoses Not on filedocumented in this encounter Care Teams Employee Benefits Manager Relationship Specialty Start Date End Date Kayleigh Mallory FNP [address] [place] [address] [address] [place] [phone] PCP - General 02/04/19 documented as of this encounter
--- OUTSIDE RECORDS SUMMARY | 2023-11-13 17:02 | XMS_ITS | Encounter Summary ---
Author Organization [facility] Address [address] [place] [address] Care Team Providers Care Dry Charge Process Attendant Name Role Phone Kayleigh Mallory WILFREDO Primary Care Provider [phone] Reason for Visit * Reason Onset Date Comments Medications Refill 11/09/2019 Encounter Details Date Type Department Care Team (Late st Contact Info) Description 11/09/2019 Telephone [facility] Rheumatology & Immunology - [facility] [address] [place], [place] [phone] Harsh Malloy, BAG TESTER [address] [place] [address], [facility] 5 [place] [address] Medications Refill Social History Tobacco [...] every 14 days. Specialty. 6 Pen 1 11/18/2019 05/17/2020 documented in this encounter Miscellaneous Notes * Telephone Encounter - Zoe Bautista - 11/09/2019 1344 EDT Medication Request Medication: Humira Refill due: November outreach Pharmacy: [facility] Renewal of Humira (adalimumab) is required for continued use; order sent per refill protocol to [facility] Specialty Pharmacy for dispensing. Follow-up visit scheduled with Harsh Malloy NP on 02/08/2020. Eric Redmond, Pharm.D., [facility] Pharmacist Clinician - Rheumatology 11/18/2019 documented in this encounter Plan of Treatment Upcoming Encounters Date Type Department Care Team (Late st Contact Info) Description 11/24/2023 10:00 EDT Telemedicine [facility] Rheumatology & Immunology - [address] [address] Harsh Malloy NP 111 [facility], [address] [place] [address] documented as of this encounter Visit Diagnoses Not on filedocumented in this encounter Discontinued Medications Medication Sig Discontinue Reason Start Date End Da te adalimumab (HUMIRA,CF, PEN) 40 mg/0.4 mL pen Inject 0.4 mL into the skin every 14 days. Specialty. Reorder 05/10/2019 11/18/2019 documented as of this encounter Care Teams Dry Charge Process Attendant Relationship Specialty Start Date End Date Kayleigh Mallory FNP 26 [facility] [address] [place] [phone] PCP - General 02/04/19 documented as of this encounter
--- OUTSIDE RECORDS SUMMARY | 2023-11-13 17:02 | XMS_ITS | Encounter Summary ---
Author Organization [facility] Address [address] [place] [address] Care Team Providers Care Train Driver Name Role Phone Kayleigh Mallory WILFREDO Primary Care Provider [phone] Encounter Details Date Type Department Care Team ([facility] Contact Info) Description 02/26/2021 Specialty Pharmacy [facility] [address] [place] [address] Eric Redmond RPH Social History Tobacco Use [...] Info) Description 11/24/2023 10:00 EDT Telemedicine [facility] Rheumatology & Immunology - [address] [phone] Harsh Malloy, ENTRY LEVEL RECRUITER 111 [facility], [address] [place] [phone] documented as of this encounter Visit Diagnoses Not on filedocumented in this encounter Care Teams Train Driver Relationship Specialty Start Date End Date Kayleigh Mallory FNP 26 [facility] [address] [place] [phone] PCP - General 02/04/19 documented as of this encounter
--- OUTSIDE RECORDS SUMMARY | 2023-11-13 17:02 | XMS_ITS | Encounter Summary ---
Author Organization [facility] Address [address] [place] [address] Care Team Providers Care Die Casting Machine Maintainer Name Role Phone Kayleigh Mallory WILFREDO Primary Care Provider [phone] Encounter Details Date Type Department Care Team ([facility] Contact Info) Description 12/20/2020 Specialty Pharmacy [facility] - [facility] [address] [place] [address] Eric Redmond RPH Social History Tobacco Use [...] [facility] [place] [facility] - [address] [address] Harsh Malloy, ESTHETICIAN/SPA COORDINATOR 111 [facility], [address] [place] [phone] documented as of this encounter Visit Diagnoses Not on filedocumented in this encounter Care Teams Die Casting Machine Maintainer Relationship Specialty Start Date End Date Kayleigh Mallory FNP 26 [facility] [address] [place] [phone] PCP - General 02/04/19 documented as of this encounter
--- OUTSIDE RECORDS SUMMARY | 2023-11-13 17:02 | XMS_ITS | Encounter Summary ---
Author Organization [facility] Address [address] [place] [address] Care Team Providers Care Electrician Apprentice Name Role Phone Kayleigh Mallory WILFREDO Primary Care Provider [phone] Encounter Details Date Type Department Care Team ([facility] Contact Info) Description 03/23/2021 Specialty Pharmacy [facility] Amb[facility] - [facility] [address] [place] [address] Eric Redmond RPH Social History Tobacco Use [...] Info) Description 11/24/2023 10:00 EDT Telemedicine [facility] Rheumatology & Immunology - [address] [id number] Harsh Malloy, SENIOR LABEL SPECIALIST 111 [facility], [address] [place] [phone] documented as of this encounter Visit Diagnoses Not on filedocumented in this encounter Care Teams Electrician Apprentice Relationship Specialty Start Date End Date Kayleigh Mallory FNP 26 [facility] [address] [place] [phone] PCP - General 02/04/19 documented as of this encounter
--- OUTSIDE RECORDS SUMMARY | 2023-11-13 17:02 | XMS_ITS | Encounter Summary ---
Author Organization [facility] Address [address] [place] [address] Care Team Providers Care Shipmaster Name Role Phone Kayleigh Mallory WILFREDO Primary Care Provider Reason for Referral * Medication Prior Authorization (Routine) - Closed Specialty Diagnoses / Procedures Referred By Twyla love Referred To Contact Pharmacy Diagnoses Psoriatic arthritis ([facility]) Harsh Malloy, ELBERT 111 [facility], [address] [place] [address] [facility] [address] [place] [address] Referral ID Status Reason Start Date Expiration Date Visits Requested Visits Authorized [id number] Closed Medication Prior Authorization 10/26/2020 1 1 Question Answer Medication to be Prior Authorized: Reauth Humira 40 mg/ 0.4ml PEN subcutaneously every 14 days for psoriatic arthritis Comments The purpose of this consult request is to inform the scheduling staff that a medication needs to be prior-authorized before it is prescribed and/or administered. Encounter Details Date Type Department Care Team ([facility] Contact Info) Description 10/26/2020 Orders Only [facility] Rheumatology & Immunology - [facility] [address] [place] [address] WilliamsChina Perez RN Psoriatic arthritis ([facility]) (Primary Dx) Social History Tobacco Use Types Packs/Day Years [...] Description 11/24/2023 10:00 EDT Telemedicine [facility] Rheumatology & Immunology - [address] [address] Harsh Malloy NP [address] [facility], [address] [place] [address] Scheduled Referrals Name Type Priority Associated Diagnoses Order Schedule AMB MEDICATION PRIOR AUTHORIZATION Outpatient Referral Routine Psoriatic arthritis ([facility]) Ordered: 10/26/2020 documented as of this encounter Visit Diagnoses Diagnosis Psoriatic arthritis ([facility])- Primary Psoriatic arthropathy documented in this encounter Care Teams Shipmaster Relationship Specialty Start Date End Date Kayleigh Mallory FNP [address] [place] [address] [address] [place] [address] PCP - General 02/04/19 documented as of this encounter
--- OUTSIDE RECORDS SUMMARY | 2023-11-13 17:02 | XMS_ITS | Encounter Summary ---
Author Organization [facility] Address [address] [place] [address] Care Team Providers Care Farmworker Bulbs Name Role Phone Kayleigh Mallory WILFREDO Primary Care Provider [phone] Encounter Details Date Type Department Care Team ([facility] Contact Info) Description 01/24/2021 Specialty Pharmacy [facility] Amb[facility] - [facility] [address] [place] [address] Eric Redmond RPH Social History Tobacco Use [...] [facility] Rheumatology & Immunology - [address] [phone] Harsh Malloy, ELECTRONICS SYSTEM MECHANIC 111 [facility], [address] [place] [phone] documented as of this encounter Visit Diagnoses Not on filedocumented in this encounter Care Teams Farmworker Bulbs Relationship Specialty Start Date End Date Kayleigh Mallory FNP 26 [facility] [address] [place] [phone] PCP - General 02/04/19 documented as of this encounter
--- OUTSIDE RECORDS SUMMARY | 2023-11-13 17:02 | XMS_ITS | Encounter Summary ---
Author Organization [facility] Address [address] [place] [address] Care Team Providers Care Stock Saw Operator Name Role Phone Kayleigh Mallory WILFREDO Primary Care Provider [phone] Encounter Details Date Type Department Care Team (Late st Contact Info) Description 10/11/2019 Specialty Pharmacy [facility] [address] [address] Eric Redmond [place] Social History Tobacco Use [...] [facility] Rheumatology & Immunology - [facility] [address] [place] [address] Harsh Malloy, STATION DETECTIVE 111 [facility], [address] [place] [address] documented as of this encounter Visit Diagnoses Not on filedocumented in this encounter Care Teams Stock Saw Operator Relationship Specialty Start Date End Date Kayleigh Mallory FNP [address] [place] [address] [address] [place] [phone] PCP - General 02/04/19 documented as of this encounter
--- OUTSIDE RECORDS SUMMARY | 2023-11-13 17:02 | XMS_ITS | Encounter Summary ---
Author Organization [facility] Address [address] [place] [address] Care Team Providers Care Galvanizer Zinc Name Role Phone Kayleigh Mallory WILFREDO Primary Care Provider [phone] Reason for Visit * Reason Comments Other Encounter Details Date Type Department Care Team (Late st Contact Info) Description 04/24/2019 [facility] Rheumatology & Immunology - [facility] [address] [place], [place] [phone] Harsh Malloy, ELBERT 111 [facility], [address] [place] [address] Other Social History Tobacco Use [...] Labs every 3-4 months (last drawn 04/03/19) 108 Tab 1 04/26/2019 08/12/2019 documented in this encounter Plan of Treatment Upcoming Encounters Date Type Department Care Team (Late st Contact Info) Description 11/24/2023 10:00 EDT Telemedicine [facility] Rheumatology & Immunology - [facility] [address] [place], [place] [address] Harsh Malloy NP 111 [facility], [address] [place] [address] documented as of this encounter Visit Diagnoses Not on filedocumented in this encounter Discontinued Medications Medication Sig Discontinue Reason Start Date End Da te methotrexate 2.5 mg tablet Take 9 Tabs by mouth once a week. Reorder 11/06/2018 04/24/2019 documented as of this encounter Care Teams Galvanizer Zinc Relationship Specialty Start Date End Date Kayleigh Mallory FNP 26 [facility] [address] [place] [phone] PCP - General 02/04/19 documented as of this encounter
--- OUTSIDE RECORDS SUMMARY | 2023-11-13 17:02 | XMS_ITS | Encounter Summary ---
Author Organization [facility] Address [address] [place] [address] Care Team Providers Care Cable Strander Name Role Phone Kayleigh Mallory WILFREDO Primary Care Provider [phone] Encounter Details Date Type Department Care Team ([facility] Contact Info) Description 11/15/2020 Specialty Pharmacy [facility] Ambulatory Pharmacy - [facility] [address] [place] [address] Eric Redmond RPH Social History Tobacco Use [facility] - [address] [phone] Harsh Malloy, YOUTH PROGRAM DIRECTOR 111 [facility], [address] [place] [phone] documented as of this encounter Visit Diagnoses Not on filedocumented in this encounter Care Teams Cable Strander Relationship Specialty Start Date End Date Kayleigh Mallory FNP 26 [facility] [address] [place] [phone] PCP - General 02/04/19 documented as of this encounter
--- OUTSIDE RECORDS SUMMARY | 2023-11-13 17:02 | XMS_ITS | Encounter Summary ---
Author Organization [facility] Address [address] [place] [address] Care Team Providers Care Nylon Hot Wire Cutter Name Role Phone Kayleigh Mallory WILFREDO Primary Care Provider [phone] Encounter Details Date Type Department Care Team (Late st Contact Info) Description 05/10/2019 Specialty Pharmacy [facility] Amb[facility] [address] [address] Eric Redomnd [place] Social History Tobacco Use Types Packs/Day [...] Info) Description 11/24/2023 10:00 EDT Telemedicine [facility] Rheumatology & Immunology - [facility] [address] [place] [address] Harsh Malloy, TICKET MARKER 111 [facility], [address] [place] [address] documented as of this encounter Visit Diagnoses Not on filedocumented in this encounter Care Teams Nylon Hot Wire Cutter Relationship Specialty Start Date End Date Kayleigh Mallory FNP [address] [place] [address] [address] [place] [phone] PCP - General 02/04/19 documented as of this encounter
--- OUTSIDE RECORDS SUMMARY | 2023-11-13 17:02 | XMS_ITS | Encounter Summary ---
Author Organization [facility] Address [address] [place] [address] Care Team Providers Care Machine Steak Tenderizer Name Role Phone Kayleigh Mallory WILFRDEO Primary Care Provider [phone] Reason for Visit * Reason Comments Other Encounter Details Date Type Department Care Team (Late st Contact Info) Description 04/30/2019 [facility] Rheumatology & Immunology - [facility] [address] [place], [place] [phone] Harsh Malloy, ELBERT 111 [facility], [address] [place] [address] Other Social History Tobacco Use [...] TAKE 1 TABLET BY MOUTH ONCE DAILY 90 Tab 1 04/30/2019 10/23/2019 documented in this encounter Miscellaneous Notes * Telephone Encounter - Marisol Tejeda RN - 04/30/2019 1452 EST Medication: folic acid 1 mg Last follow up:02/05/19 Next follow up:08/13/19 Last labs:04/03/19 [facility] documented in this encounter Plan of Treatment Upcoming Encounters Date Type Department Care Team (Late st Contact Info) Description 11/24/2023 10:00 EDT Telemedicine [facility] Rheumatology & Immunology - [address] [address] Harsh Malloy NP 111 [facility], [address] [place] [address] documented as of this encounter Visit Diagnoses Not on filedocumented in this encounter Discontinued Medications Medication Sig Discontinue Reason Start Date End Da te folic acid (FOLVITE) 1 mg tablet Take 1 Tab by mouth daily. 11/12/2018 04/30/2019 documented as of this encounter Care Teams Machine Steak Tenderizer Relationship Specialty Start Date End Date Kayleigh Mallory FNP 26 [facility] [address] [place] [address] PCP - General 02/04/19 documented as of this encounter
--- OUTSIDE RECORDS SUMMARY | 2023-11-13 17:03 | XMS_ITS | Encounter Summary ---
Author Organization [facility] Address [address] [place] [address] Care Team Providers Care Tailor Helper Name Role Phone Meredith Rapp MD Primary Care Provider [phone] Reason for Referral * PT/OT/ST (Routine) - New Request Specialty Diagnoses / Procedures Referred By Twyla love Referred To Contact Diagnoses Right hip pain Harsh Malloy NP [address] [address] Referral ID Status Reason Start Date Expiration Date Visits Requested Visits Authorized [id number] New Request Specialty Services Required 02/02/2018 1 1 Question Answer Reason for Request: right hip catching on flexion and abduction, aduction Reason for Visit * Reason Comments Joint Pain right hand right hip is a clipping sound Encounter Details Date Type Department Care Team (Late st Contact Info) Description 02/02/2018 11:30 EDT Office Visit [facility] Rheumatology & Immunology - [address] [phone] Harsh Malloy NP [address] [place] [address] Psoriasis with arthropathy (HCC-CMS) (Primary Dx); Right hip pain; Need for Streptococcus pneumoniae vaccination; Encounter for long-term (current) use of medications [...] 67.1 kg (148 lb) 02/02/2018 1124 EDT verb al Height 164.5 cm (5' 4.76) 02/02/2018 1124 [...] * Patient Instructions* Harsh Malloy APRN - 02/02/2018 11:30 EDT 1. [...] Many Vaccine Information Statements are available in Palestinian and other languages. See www.immunize.org/vis Hojas de Informaci??n Sobre Vacunas est??n disponibles en Espa??ol y en muchos otros idiomas. Visite http://www.immunize.org/vis 1. Why get vaccinated? Shingles (also called herpes zoster, or just zoster) is a painful skin rash, often with blisters. Shingles is caused by the varicella zoster virus, the same virus that causes chickenpox. After you have chickenpox, the virus stays in your body and [...] older than in younger people, and the risk increases with age. It is also more common in people whose immune system is weakened because of a disease such as cancer, or by drugs such as steroids or chemotherapy. At least 1 million people a year in the [place] get shingles. 2. Shingles vaccine (recombinant) Recombinant shingles vaccine was approved by FDA in 2017 for the prevention of shingles. In clinical trials, it was more than 90% effective in [...] has a severe allergy to any component of this vaccine, may be advised not to be [...] Some people felt tired, had muscle pain, aheadache, shivering, fever, stomach pain, or nausea. About [...] by a fall. Tell your provider if you feel dizzy or have vision changes or ringing [...] usually start a few minutes to a few hours after the vaccination. What should I do? [...] it yourself through the VAERS website at www.Box[employer].[facility].gov, or by calling . [employer] does not give medical advice. 6. How can I learn more? Ask your health care provider. He or she can give you the vaccine package insert or suggest other sources of information. ??? Call your local or state health department. ??? Contact the Centers for Disease Control and Prevention (CDC): - Call (2-037-YST-INFO) or - Visit CDC???s website at www.cdc.gov/vaccines Vaccine Information Statement Recombinant Zoster Vaccine 06/09/2017 Department of Health and Human Services Centers for Disease Control and Prevention Office Use Only documented in this encounter Ordered Prescriptions Prescription Sig Dispensed Refills Start Date End Da te methotrexate 2.5 mg tablet Take 9 Tabs by mouth once a week. 108 Tab 3 02/02/2018 07/21/2018 documented in this encounter Progress Notes * China Haro - 02/02/2018 1130 EDT REVIEW OF SYSTEMS: [...] note change(s) below and update record yes * Harsh Malloy, STRATEGIES ANALYST - 02/02/2018 1130 EDT Patient ID: Nina Boothe is a 47 y.o. y.o. female Subjective: Chief Complaint: Joint Pain (right hand right hip is a clipping sound) HPI: Here for follow up of psoriatic arthritis on enebrel and methotrexate. Last seen in clinic on 08/06/2017 and was MICHAEL lu for humira from enbrel. Changes since last visit: 01/13/2018 Sphyncerotomy - [...] with arthropathy (HCC-CMS) PNEUMOCOCCAL POLYSACCHARIDE (PPSV23) VACCINE (PNEUMOVAX-23)23-VALENT =>2YO SQ/IM 2. Right hip pain AMB CONS/FOLLOW UP PHYSICAL THERAPY 3. Need for Streptococcus pneumoniae vaccination PNEUMOCOCCAL POLYSACCHARIDE (PPSV23) VACCINE (PNEUMOVAX-23) 23-VALENT =>2YO SQ/IM 4. Encounter for long-term (current) use of medications Orders Placed This Encounter Procedures ??? Pneumococcal polysaccharide (PPSV23) vaccine (PNEIUMOVAX-23) 23-valent greater than or equal to2yo subcutaneous/IM Order Specific Question: Print Script? Answer: No ??? Amb Consult/Follow Up Physical Therapy Referral Priority: Routine Referral Type: PT/OT/ST Referral Reason: Specialty Services Required Number of Visits Requested: 1 Barriers to learning identified: No Patient verbalizes understanding and agrees with plan Yes I was directly supervised by: Dr. Acuña . They were present in clinic and available for consult ifneeded. Harsh Malloy APRN 02/02/2018 12:15 Attestation statement: Supervising Physician Chuck Acuña MD documented in this encounter Plan of Treatment Upcoming Encounters Date Type Department Care Team (Late st Contact Info) Description 11/24/2023 10:00 EDT Telemedicine [facility] Rheumatology [place] [address] Harsh Malloy NP [address] [place] [address], [address] [place] [address] Scheduled Referrals Name Type Priority Associated Diagnoses Orde r Schedule AMB CONS/FOLLOW UP PHYSICAL THERAPY Outpatient Referral Routine Right hip pain Ordered: 02/02/2018 documented as of this encounter Visit Diagnoses Diagnosis Psoriasis with arthropathy (HCC-CMS)- Primary Psoriatic arthropathy Right hip pain Pain in joint, pelvic region and thigh Need for Streptococcus pneumoniae vaccination Need for prophylactic vaccination against streptococcus pneumoniae (pneumococcus) Encounter for long-term (current) use of medications Encounter for long-term (current) use of other medications documented in this encounter Discontinued Medications Medication Sig Discontinue Reason Start Date End Da te methotrexate 2.5 mg tablet Take 9 Tabs by mouth once a week. Reorder 05/07/2017 02/02/2018 documented as of this encounter Orders Immunization/Injection Count Last Ordered Date First Ordered Date PNEUMOCOCCAL POLYSACCHARIDE (PPSV23) VACCINE (PNEUMOVAX-23) 23-VALENT =>2YO SQ/IM 1 02/02/2018 documented in this encounter Care Teams Tailor Helper Relationship Specialty Start Date End Date Meredith Rapp MD [address] [place] [address] PCP - General 08/09/10 08/04/18 documented as of this encounter
--- OUTSIDE RECORDS SUMMARY | 2023-11-13 17:03 | XMS_ITS | Encounter Summary ---
Author Organization [facility] Address [address] [place] [address] Care Team Providers Care Sheet Rock Taper Name Role Phone Meredith Rapp MD Primary Care Provider [phone] Encounter Details Date Type Department Care Team (Late st Contact Info) Description 05/14/2017 Phlebotomy Only [facility] [address] [place] [address] Superintendent Menagerie, Outpatient Need for pneumococcal vaccination; Psoriatic arthropathy ([facility]); Encounter for long-term (current) use of medications; Hammer toes of both feet; Psoriasis with arthropathy ([facility]) ([facility]) Social History Tobacco Use Types Packs/Day Years [...] visiting a doctor's office or shopping? No 05/14/2017 Cognitive Status Response Date of Assessm ent Because of a physical, menta l, or emotional condition, does this person have serious difficulty concentrating, remembering, or making decisions? No 05/14/2017 documented as of this encounter Progress Notes * Harsh Malloy NP - 05/15/2017 0808 EST Cr. Back to normal CMP normal CBC normal documented in this encounter Plan of Treatment Upcoming Encounters Date Type Department Care Team (Late st Contact Info) Description 11/24/2023 10:00 EDT Telemedicine [facility] Rheumatology & Immunology - [address] [id number] Harsh Malloy NP 111 [facility], [address] [place] [address] documented as of this encounter Procedures Procedure Name Priority Date/Time Associated Diagnosis Comments COMPLETE BLOOD COUNT AND DIFFERENTIAL Routine 05/14/2017 11:56 EST Need for pneumococcal vaccination Psoriatic arthropathy ([facility]) Encounter for long-term (current) use of medications Hammer toes of both feet Psoriasis with arthropathy ([facility]) ([facility]) COMPREHENSIVE METABOLIC PANEL (CMP) Routine 05/14/2017 11:56 EST Need for pneumococcal vaccination Psoriatic arthropathy ([facility]) Encounter for long-term (current) use of medications Hammer toes of both feet Psoriasis with arthropathy ([facility]) ([facility]) documented in this encounter Results * COMPREHENSIVE METABOLIC PANEL (CMP) (05/14/2017 11:56 EST) Potassium 4.2 3.5 - 5.0 mEq/L 05/14/2017 13:06 [facility] Sodium 141 136 - 145 mEq/L 05/14/2017 13:06 [facility] Chloride 103 96 - 110 mEq/L 05/14/2017 13:06 [facility] CO2 26 22 - 32 mEq/L 05/14/2017 13:06 [facility] Total Alkaline Phosphatase 61 38 - 126 U/L 05/14/2017 13:06 [facility] Bilirubin, Total 0.6 <1.4 mg/dl 05/14/19 18 13:06 [facility] AST 26 15 - 46 U/L 05/14/2017 13:06 [facility] ALT 36 <53 U/L 05/14/2017 13:06 [facility] Albumin 4.5 3.4 - 4.9 g/dl 05/14/2017 13:06 [facility] Total Protein 7.6 6.3 - 8.2 g/dl 05/14/2017 13:06 [facility] Creatinine 0.89 0.52 - 1.04 mg/dl 05/14/2017 13:06 [facility] GFR, Calculated 77 >60 ml/min/1.7 3m2 05/14/2017 13:06 [facility] Comment: eGFR calculated using CKD-EPI equation for non Americans. Multiply eGFR by 1.16 for Americans. BUN 18 10 - 26 mg/dl 05/14/2017 13:06 [facility] Calcium 9.5 8.5 - 10.5 mg/dl 05/14/2017 13:06 [facility] Calculated Calcium 9.1 8.5 - 10.5 mg/dl 05/14/2017 13:06 [facility] Glucose, Serum 86 70 - 100 mg/dl 05/14/2017 13:06 [facility] Fasting? No 05/14/2017 11:56 [facility] Blood specimen (specimen) BLOOD SPECIMEN / Unknown 05/14/2017 11:56 EST 05/14/2017 12:18 EST Harsh Malloy NP CHEMISTRY & BLOOD G ORDERABLES [facility] [address] [place] [address] * HEMAGRAM AND DIFFERENTIAL (05/14/2017 11:56 EST) WBC 7.79 4.0 - 12.4 K/cmm 05/14/2017 12:28 [facility] RBC 4.67 3.86 - 5.04 M/cmm 05/14/2017 12:28 [facility] Hemoglobin 14.5 11.6 - 15.2 gm/dl 05/14/2017 12:28 [facility] HCT 41.7 34.9 - 44.4 % 05/14/2017 12:28 [facility] MCV 89 81 - 98 fl 05/14/2017 12:28 [facility] MCH 31.0 26.7 - 33.3 pg 05/14/2017 12:28 [facility] MCHC 34.8 32.1 - 35.9 gm/dl 05/14/2017 12:28 [facility] RDW-CV 14.5 <14.7 % 05/14/2017 12:28 [facility] RDW-SD 46.6 <50.4 fl 05/14/2017 12:28 [facility] PLT 302 141 - 377 K/cmm 05/14/2017 12:28 [facility] MPV 9.7 9.5 - 12.7 fl 05/14/2017 12:28 [facility] % Neutrophils 60.5 % 05/14/2017 12:28 [facility] % Lymphocytes 28.4 % 05/14/2017 12:28 [facility] % Monocytes 8.6 % 05/14/2017 12:28 [facility] % Eosinophils 1.4 % 05/14/2017 12:28 [facility] % Basophils 0.6 % 05/14/2017 12:28 [facility] % Immature Grans 0.5 % 05/14/2017 12:28 [facility] ABS Neutrophils 4.71 2.20 - 8.85 K/cmm 05/14/2017 12:28 [facility] ABS Lymphs 2.21 1.09 - 3.30 K/cmm 05/14/2017 12:28 [facility] ABS Monocytes 0.67 0.1 - 0.8 K/cmm 05/14/2017 12:28 [facility] ABS Eosinophils 0.11 0.03 - 0.61 K/cmm 05/14/2017 12:28 EST [facility] ABS Basophils 0.05 0.01 - 0.11 K/[facility] 05/14/2017 12:28 EST [facility] ABS Immature Grans 0.04 0 - 0.06 K/[facility] 05/14/2017 12:28 EST [facility] Type of Diff: Automated 05/14/2017 12:28 EST [facility] Blood specimen (specimen) BLOOD SPECIMEN / Unknown 05/14/2017 11:56 EST 05/14/2017 12:18 EST Harsh Malloy NATIONAL INVESTIGATIVE PRODUCER PACKAGES & DNA PROB E ORDERABLES [facility] [address] [place] [address] documented in this encounter Visit Diagnoses Diagnosis Need for pneumococcal vaccination Need for prophylactic vaccination against streptococcus pneumoniae (pneumococcus) Psoriatic arthropathy (HCC-CMS) Psoriatic arthropathy Encounter for long-term (current) use of medications Encounter for long-term (current) use of other medications Hammer toes of both feet Psoriasis with arthropathy (HCC-CMS) Psoriatic arthropathy documented in this encounter Care Teams Sheet Rock Taper Relationship Specialty Start Date End Date Meredith Rapp MD [address] [place] [address] PCP - General 08/09/10 08/04/18 documented as of this encounter
--- OUTSIDE RECORDS SUMMARY | 2023-11-13 17:03 | XMS_ITS | Encounter Summary ---
Author Organization [facility] Address [address] [place] [address] Care Team Providers Care Professor Of Oceanography Name Role Phone Meredith Rapp MD Primary Care Provider [phone] Reason for Visit * Reason Onset Date Comments Medications Refill 01/05/2016 Encounter Details Date Type Department Care Team (Late st Contact Info) Description 01/05/2016 Refill [facility] Rheumatology & Immunology - [address] [id number] Etelvina Hernandez MD [address] [place] [address], [address] [place] [address] Medications Refill Social History Tobacco [...] visiting a doctor's office or shopping? No 11/06/2015 Cognitive Status Response Date of Assessm ent Because of a physical, menta l, or emotional condition, does this person have serious difficulty concentrating, remembering, or making decisions? No 11/06/2015 documented as of this encounter Ordered Prescriptions Prescription Sig Dispensed Refills Start Date End Da te naproxen (NAPROSYN) 500 mg tablet Take 1 Tab by mouth 2 times daily with breakfast and dinner. 180 Tab 1 01/05/2016 04/03/2016 documented in this encounter Miscellaneous Notes * Telephone Encounter - Talisha Loja RN - 01/05/2016 0753 EDTFrom: Nina Boothe To: Etelvina Hernandez MD Sent: 01/05/2016 5:18 EDT Subject: Medication Renewal Request Original authorizing provider: MD Nina Turner would like a refill of the following medications: naproxen (NAPROSYN) 500 mg tablet [Etelvina Hernandez MD] Preferred pharmacy: [facility] - [address] Comment: Please send to [facility]. Thank you! documented in this encounter Plan of Treatment Upcoming Encounters Date Type Department Care Team (Late st Contact Info) Description 11/24/2023 10:00 EDT Telemedicine [facility] Rheumatology & Immunology - [address] [address] Harsh Malloy NP 111 [facility], [address] [place] [id number] documented as of this encounter Visit Diagnoses Not on filedocumented in this encounter Discontinued Medications Medication Sig Discontinue Reason Start Date End Da te naproxen (NAPROSYN) 500 mg tablet take 1 tablet by mouth twice a day with food if needed for pain Reorder 07/13/2013 01/05/2016 documented as of this encounter Care Teams Professor Of Oceanography Relationship Specialty Start Date End Date Meredith Rapp MD [address] [place] [address] PCP - General 08/09/10 08/04/18 documented as of this encounter
--- OUTSIDE RECORDS SUMMARY | 2023-11-13 17:03 | XMS_ITS | Encounter Summary ---
Author Organization [facility] Address [address] [place] [address] Care Team Providers Care Car Hiker Name Role Phone Meredith Rapp MD Primary Care Provider [phone] Encounter Details Date Type Department Care Team (Late st Contact Info) Description 11/22/2015 Orders Only [facility] Rheumatology & Immunology - [facility] [address] [place] [address] Maria Esther Aguilar, RN [address] [place] [address] Encounter for long-term (current) use of medications (Primary Dx) Social History Tobacco Use Types [...] No 11/06/2015 documented as of this encounter Progress Notes * Maria Esther AguilarIMAN - 11/22/2015 1706 EDT Labs faxed. * Maria Esther Aguilar RN - 11/22/2015 1659 EDT Please fax orders to [phone]. documented in this encounter Plan of Treatment Upcoming Encounters Date Type Department Care Team (Late st Contact Info) Description 11/24/2023 10:00 EDT Telemedicine [facility] Rheumatology & Immunology - [facility] [address] [place], [place] [phone] Harsh Malloy NP [address] [facility], [address] [place] [address] documented as of this encounter Visit Diagnoses Diagnosis Encounter for long-term (current) use of medications- Primary Encounter for long-term (current) use of other medications documented in this encounter Care Teams Car Hiker Relationship Specialty Start Date End Date Meredith Rapp MD [address] [place] [address] PCP - General 08/09/10 08/04/18 documented as of this encounter
--- OUTSIDE RECORDS SUMMARY | 2023-11-13 17:03 | XMS_ITS | Encounter Summary ---
Author Organization [facility] Address [address] [place] [address] Care Team Providers Care Dance Entertainer Name Role Phone Meredith Rapp MD Primary Care Provider [phone] Reason for Visit * Reason Comments Other Encounter Details Date Type Department Care Team (Late st Contact Info) Description 03/26/2016 [facility] Rheumatology & Immunology - [address] [address] Tabatha Degroot PA-C [address] [place] [address] Other Social History Tobacco Use Types Packs/Day [...] Da te methotrexate 2.5 mg tablet Take 6 Tabs by mouth once a week. 78 Tab 1 03/26/2016 04/17/2016 documented in this encounter Plan of Treatment Upcoming Encounters Date Type Department Care Team (Late st Contact Info) Description 11/24/2023 10:00 EDT Telemedicine [facility] Rheumatology & Immunology - [address] [address] Harsh Malloy NP 111 [facility], [address] [place] [phone] documented as of this encounter Visit Diagnoses Not on filedocumented in this encounter Discontinued Medications Medication Sig Discontinue Reason Start Date End Da te methotrexate 2.5 mg tablet Take 6 Tabs by mouth once a week. Reorder 11/06/2015 03/26/2016 documented as of this encounter Care Teams Dance Entertainer Relationship Specialty Start Date End Date Meredith Rapp MD [address] [place] [address] PCP - General 08/09/10 08/04/18 documented as of this encounter
--- OUTSIDE RECORDS SUMMARY | 2023-11-13 17:03 | XMS_ITS | Encounter Summary ---
Author Organization [facility] Address [address] [place] [address] Care Team Providers Care Photography Intern Name Role Phone Meredith Rapp MD Primary Care Provider [phone] Reason for Visit * Reason Onset Date Comments Medications Refill 05/06/2017 Encounter Details Date Type Department Care Team (Late st Contact Info) Description 05/06/2017 Refill [facility] Dermatology 5th [address] [address] Cat Dodson MD [address] [place] [id number] Medications Refill Social History Tobacco Use Types [...] visiting a doctor's office or shopping? No 11/12/2016 Cognitive Status Response Date of Assessm ent Because of a physical, menta l, or emotional condition, does this person have serious difficulty concentrating, remembering, or making decisions? No 11/12/2016 documented as of this encounter Miscellaneous Notes * Telephone Encounter - Amparo Haas - 05/07/2017 1552 EST Left a message for the patient stating that she is considered a new patient in our office now and would need to schedule a NPV before refilling any medications. Amparo Haas 05/07/2017 15:58 * Telephone Encounter - Nat Gutierres RN - 05/07/2017 0822 ESTFrom: Nina Boothe To: Cat Dodson MD Sent: 05/06/2017 19:53 EST Subject: Medication Renewal Request Original authorizing provider: MD Nina Diez would like a refill of the following medications: clobetasol (TEMOVATE) 0.05 % external solution [Cat Dodson MD] Preferred pharmacy: Other - [facility] Comment: Due to my recent insurance change, I am now required to use [facility] online. Medication renewals requested in this message routed to other providers: fluocinonide (LIDEX) 0.05 % ointment [Etelvina Hernandez MD] methotrexate 2.5 mg tablet [Etelvina Hernandez MD] folic acid (FOLVITE) 1 mg tablet [Etelvina Hernandez MD] documented in this encounter Plan of Treatment Upcoming Encounters Date Type Department Care Team (Late st Contact Info) Description 11/24/2023 10:00 EDT Telemedicine [facility] Rheumatology & Immunology - [facility] [address] [place], [place] [phone] Harsh Malloy NP 111 [facility] 5 [place] [phone] documented as of this encounter Visit Diagnoses Not on filedocumented in this encounter Care Teams Photography Intern Relationship Specialty Start Date End Date Meredith Rapp MD [address] [place] [address] PCP - General 08/09/10 08/04/18 documented as of this encounter
--- OUTSIDE RECORDS SUMMARY | 2023-11-13 17:03 | XMS_ITS | Encounter Summary ---
Author Organization [facility] Address [address] [place] [address] Care Team Providers Care Kitchen Hand Name Role Phone Meredith Rapp MD Primary Care Provider [phone] Reason for Visit * Reason Comments Joint Pain hands, more so right hand and right knee Encounter Details Date Type Department Care Team (Late st Contact Info) Description 04/17/2016 11:00 EST Office Visit [facility] Rheumatology & Immunology - [address] [address] Etelvina Hernandez MD 111 [facility], [address] [place] [address] Psoriasis with arthropathy (CMS-HCC) (HCC-CMS) (Primary Dx) Social History Tobacco Use Types [...] visiting a doctor's office or shopping? No 04/17/2016 Cognitive Status Response Date of Assessm ent Because of a physical, menta l, or emotional condition, does this person have serious difficulty concentrating, remembering, or making decisions? No 04/17/2016 documented as of this encounter Discharge Diagnoses Diagnosis L40.50 Arthropathic psoriasis, unspecified-L40.50[ICD-10-CM] documented in this encounter Patient Instructions * Patient Instructions* Etelvina Hernandez MD - 04/17/2016 11:00 EST Increase methotrexate to 7 tabs a week; after 8 weeks if you are not better, call and we can increase to 8 tabs a week. After 8 tabs a week, if no improvement, consider changing Enbrel to a different TNF alpha inhibitorfor example Humira Continue labs every 3-4 months documented in this encounter Ordered Prescriptions Prescription Sig Dispensed Refills Start Date End Da te methotrexate 2.5 mg tablet Take 7 Tabs by mouth once a week. 90 Tab 1 04/17/2016 10/18/2016 documented in this encounter Progress Notes * China Haro - 04/17/2016 1100 EST REVIEW OF SYSTEMS: [...] x Hand/Foot color change in cold X * Etelvina Hernandez MD - 04/17/2016 1100 EST Division of Rheumatology and Clinical Immunology Chief Complaint Patient presents with ??? Joint Pain hands, more so right hand and right knee HPI: Here for follow up of psoriatic arthritis. The past 2 months the patient has been having increasing hand pain and occasionally some knee pain.She has been using naproxen but it is [...] once to twice daily to affected areas. 60g 11 ??? cetirizine (ZYRTEC) 10 mg tablet Take 10 mg by mouth daily. ??? clobetasol (TEMOVATE) 0.05 % external solution Apply topically twice a day to scalp. Do not apply to face, armpit or groin. 50 mL 1 ??? clobetasol (TEMOVATE) 0.05 % ointment Apply topically to affected area at bedtime Apply nightlyto the rash on elbow. Do not apply [...] swollen. The rest of the upper and lowerextremity joint exam showed no synovitis. LABS from April 16, 2016 outside hospital: WBC 7.44, Hgb 15, HCT 42.9, platelets 267, CMP normalwith AST 21 and ALT 21. Diagnosis / [...] changing Enbrel to a different TNF alpha inhibitorfor example Humira Continue labs every 3-4 months Return in about 6 months (around 10/16/2016). Barriers to learning identified: No Patient verbalizes understanding and agrees with plan Yes Etelvina Hernandez MD 04/17/2016 11:05 documented in this encounter Plan of Treatment Upcoming Encounters Date Type Department Care Team (Late st Contact Info) Description 11/24/2023 10:00 EDT Telemedicine [facility] Rheumatology & Immunology - [facility] [address] [place], [place] [address] Harsh Malloy NP 111 [facility], [address] [place] [address] documented as of this encounter Visit Diagnoses Diagnosis Psoriasis with arthropathy (HCC-CMS)- Primary Psoriatic arthropathy documented in this encounter Discontinued Medications Medication Sig Discontinue Reason Start Date End Da te methotrexate 2.5 mg tablet Take 6 Tabs by mouth once a week. Reorder 03/26/2016 04/17/2016 documented as of this encounter Historical Medications * This list may reflect changes made after this encounter. Medication Sig Dispensed Refills Start Date End Date oxybutynin (DITROPAN) 5 mg tablet Take 1 Tablet by mouth daily. added in this encounter Care Teams Kitchen Hand Relationship Specialty Start Date End Date Meredith Rapp MD [address] [place] [address] PCP - General 08/09/10 08/04/18 documented as of this encounter
--- OUTSIDE RECORDS SUMMARY | 2023-11-13 17:03 | XMS_ITS | Encounter Summary ---
Author Organization [facility] Address [address] [place] [address] Care Team Providers Care Offset Assistant Press Operator Name Role Phone Unknown, Provider Primary Care Provider Encounter Details Date Type Department Care Team (Late st Contact Info) Description 11/25/2018 Specialty Pharmacy [facility] [address] [address] Eric Redmond [place] Social History Tobacco Use [...] [facility] Rheumatology & Immunology [address] [place] [address] Harsh Malloy, ELBERT 111 [facility], [address] [place] [address] documented as of this encounter Visit Diagnoses Not on filedocumented in this encounter Care Teams Offset Assistant Press Operator Relationship Specialty Start Date End Date Unknown, Provider, PCP - General 08/05/18 02/03/19 documented as of this encounter
--- OUTSIDE RECORDS SUMMARY | 2023-11-13 17:03 | XMS_ITS | Encounter Summary ---
Author Organization [facility] Address [address] [place] [address] Care Team Providers Care Chemical Test Engineer Name Role Phone Meredith Rapp MD Primary Care Provider [phone] Reason for Visit * Reason Onset Date Comments Prior Auth, Medication 05/13/2017 Humira Encounter Details Date Type Department Care Team (Late st Contact Info) Description 05/13/2017 Telephone [facility] Rheumatology & Immunology - [address] [address] Harsh Malloy, CHIEF ACCOUNTING OFFICER [address] [place] [address], [facility] 5 [place] [address] Prior Auth, Medication (Humira) Social History Tobacco Use Types Packs/Day Years [...] No 11/12/2016 documented as of this encounter Progress Notes * Eric Meza RPH - 05/29/2017 1048 EST Left message to inform patient of Humira (adalimumab) approval. Prescription for Humira was previously sent to [facility], although she was receiving her Enbrel (etanercept) from [facility]. I requested that she call me back to discuss medication specifics along with clarificationon pharmacy preference, also instructed her to start Humira 7 days following last Enbrel injection- direct line left. Eric Meza, Pharm.D., [facility] Pharmacist Clinician - Rheumatology 05/29/2017 documented in this encounter Miscellaneous Notes * Addendum Note - Eric Meza RPH - 05/29/2017 1051 ESTAddended by: ERIC MEZA on: 05/29/2017 10:51 Modules accepted: Orders * Telephone Encounter - Jossy Fuchs - 05/16/2017 1447 EST Prior Authorization Approval Medication: Humira 40mg/0.8mL pen Approved: 05/19/2017 - 05/19/2018 Authorization Number: [id number] Pharmacy: [facility] Prior Authorization Submission Process Medication: Humira 40mg/0.8mL pen Insurance: [facility] Date PA Request Received: 05/13/2017 PA Submission Date: 05/19/2017 Submitted by: Jossy Álvarez documented in this encounter Plan of Treatment Upcoming Encounters Date Type Department Care Team (Late st Contact Info) Description 11/24/2023 10:00 EDT Telemedicine [facility] Rheumatology & Immunology - [address] [address] Harsh Malloy NP [address] [place] [address], [address] [place] [address] documented as of this encounter Visit Diagnoses Not on filedocumented in this encounter Discontinued Medications Medication Sig Discontinue Reason Start Date End Da te ENBREL SURECLICK 50 mg/mL (0.98 mL) pen injector INJECT 50 MG UNDER THE SKIN ONCE A WEEK Alternate therapy 02/13/2017 05/29/2017 documented as of this encounter Care Teams Chemical Test Engineer Relationship Specialty Start Date End Date Meredith Rapp MD [address] [place] [address] PCP - General 08/09/10 08/04/18 documented as of this encounter
--- OUTSIDE RECORDS SUMMARY | 2023-11-13 17:03 | XMS_ITS | Encounter Summary ---
Author Organization [facility] Address [address] [place] [address] Care Team Providers Care Lead Pourer Name Role Phone Unknown, Provider Primary Care Provider Encounter Details Date Type Department Care Team (Late st Contact Info) Description 01/26/2019 Specialty Pharmacy [facility] [address] [address] Eric Redmond [place] Social History Tobacco Use [...] Contact Info) Description 11/24/2023 10:00 EDT Telemedicine [facility] Rheumatology & Immunology [address] [place] [address] Harsh Malloy, ELBERT 111 [facility], Level 5 [place] [address] documented as of this encounter Visit Diagnoses Not on filedocumented in this encounter Care Teams Lead Pourer Relationship Specialty Start Date End Date Unknown, Provider, PCP - General 08/05/18 02/03/19 documented as of this encounter
--- OUTSIDE RECORDS SUMMARY | 2023-11-13 17:03 | XMS_ITS | Encounter Summary ---
Author Organization [facility] Address [address] [place] [address] Care Team Providers Care Intelligence Officer Name Role Phone Meredith Rapp MD Primary Care Provider [phone] Encounter Details Date Type Department Care Team (Late st Contact Info) Description 12/02/2017 Results Only [facility] [phone] Jv Mcdonald, DO [address] [place] [address] Social History Tobacco Use Types Packs/Day Years [...] visiting a doctor's office or shopping? No 08/06/2017 Cognitive Status Response Date of Assessm ent Because of a physical, menta l, or emotional condition, does this person have serious difficulty concentrating, remembering, or making decisions? No 08/06/2017 documented as of this encounter Plan of Treatment Upcoming Encounters Date Type Department Care Team (Late st Contact Info) Description 11/24/2023 10:00 EDT Telemedicine [facility] Rheumatology & Immunology - [facility] [address] [place], [place] [address] Harsh Malloy NP 111 [facility], Level 5 [place] [address] documented as of this encounter Procedures Procedure Name Priority Date/Time Associated Diagnosis Comments SURGICAL PATHOLOGY Routine 12/02/2017 16 :51 EDT documented in this encounter Results * SURGICAL PATHOLOGY (12/02/2017 16:51 EDT) Pathology Report: SURGICAL PATHOLOGY REPORT Reports generated via electronic interface contain original data; however they are lacking the format of the original report. Caution should be taken when reading/interpret ing unformatted reports. Name: ? REILLY HUI ? Accession #: ? [id number] ? : ? 1970 (Age: 47) ??F ? Collect Date: ? 12/02/2017 ? Location: ? [facility] ? Receive Date: ? 12/02/2017 ? Provider: JV MCDONALD DO Copy to: MEREDITH RAPP MD ? Final Pathologic Diagnosis: RECTUM, MASS, BIOPSY: - ??Squamocolumnar anorectal mucosa with features of prolapse and hyperplastic/ regenerative change. - ??Findings are consistent with solitary rectal ulcer. - ??Deeper sections examined. Document reviewed and electronically signed by: JULIO ROJO MD Report ??Date: 12/05/2017 09:45 By the signature above, the attending physician certifies that he/she has personally conducted a gross and/or microscopic examination of the described specimens and rendered or confirmed the above diagnosis. Specimen(s) Received: Low rectal bxs Clinical History: Constipation, rectal mass Gross Description: ? Received in formalin labelled with proper patient identification (initials G, I) and low rectal biopsies are three pink-parnell tissues (0.3 x 0.2 x 0.1 cm to 0.4 x 0.2 x 0.2 cm). Entirely submitted in block 1. MICHAEL Low (ASCP) 12/03/2017 7:32 AM End of Report [facility] 12/02/2017 16:5 1 EDT 12/02/2017 16:51 EDT Jv Mcdonald DO PATHOLOGY ORDERABLES [facility] [address] [place] [address] documented in this encounter Visit Diagnoses Not on filedocumented in this encounter Care Teams Intelligence Officer Relationship Specialty Start Date End Date Meredith Rapp MD [address] [place] [address] PCP - General 08/09/10 08/04/18 documented as of this encounter
--- OUTSIDE RECORDS SUMMARY | 2023-11-13 17:03 | XMS_ITS | Encounter Summary ---
Author Organization [facility] Address [address] [place] [address] Care Team Providers Care Tin Whiz Machine Operator Name Role Phone Unknown, Provider Primary Care Provider Encounter Details Date Type Department Care Team (Late st Contact Info) Description 12/22/[address] [facility] [address] [address] Eric Redmond [place] Social History Tobacco Use [...] Contact Info) Description 11/24/2023 10:[address] [facility] Rheumatology & Immunology [address] [place] [address] Harsh Malloy, ELBERT 111 [facility], Level 5 [place] [address] documented as of this encounter Visit Diagnoses Not on filedocumented in this encounter Care Teams Tin Whiz Machine Operator Relationship Specialty Start Date End Date Unknown, Provider, PCP - General 08/05/18 02/03/19 documented as of this encounter
--- OUTSIDE RECORDS SUMMARY | 2023-11-13 17:03 | XMS_ITS | Encounter Summary ---
Author Organization [facility] Address [address] [place] [address] Care Team Providers Care Subassemblies Wirer Name Role Phone Meredith Rapp MD Primary Care Provider [phone] Reason for Visit * Reason Onset Date Comments Medications Refill 07/21/2018 Encounter Details Date Type Department Care Team (Late st Contact Info) Description 07/21/2018 Refill [facility] Rheumatology & Immunology - [address] [address] Harsh Malloy, TIMBER WATCHMAN [address] [place] [address], [facility] [address] [place] [address] Medications Refill Social History Tobacco [...] te methotrexate 2.5 mg tablet Take 9 tablets by mouth once a week. 108 tablet 1 07/22/2018 11/05/2018 documented in this encounter Miscellaneous Notes * Telephone Encounter - Marisol Tejeda RN - 07/22/2018 1341 EDTFrom: Nina Boothe Sent: 07/21/2018 6:03 EDT Subject: Medication Renewal Request Nina Krissy Tl would like a refill of the following medications: methotrexate 2.5 mg tablet [Harsh Malloy, URGENT CARE TECHNICIAN] Preferred pharmacy: [facility] - [place], [place] - [facility] documented in this encounter Plan of Treatment Upcoming Encounters Date Type Department Care Team (Late st Contact Info) Description 11/24/2023 10:00 EDT Telemedicine [facility] Rheumatology & Immunology - [facility] [address] [place], [place] [address] Harsh Malloy, TIMBER WATCHMAN 111 [facility], Level [address] [place] [phone] documented as of this encounter Visit Diagnoses Not on filedocumented in this encounter Discontinued Medications Medication Sig Discontinue Reason Start Date End Da te methotrexate 2.5 mg tablet Take 9 Tabs by mouth once a week. Reorder 02/02/2018 07/21/2018 documented as of this encounter Care Teams Subassemblies Wirer Relationship Specialty Start Date End Date Meredith Rapp MD [address] [place] [address] PCP - General 08/09/10 08/04/18 documented as of this encounter
--- OUTSIDE RECORDS SUMMARY | 2023-11-13 17:03 | XMS_ITS | Encounter Summary ---
Author Organization [facility] Address [address] [place] [address] Care Team Providers Care Chief Port Director Name Role Phone Meredith Rapp MD Primary Care Provider [phone] Reason for Visit * Reason Onset Date Comments Prior Auth, Medication 02/20/2016 Encounter Details Date Type Department Care Team (Late st Contact Info) Description 02/20/2016 Telephone [facility] Rheumatology & Immunology - [facility] [address] [place], [place] [address] Tabatha Degroot PAAltafC [address] [place], [place] [phone] Prior Auth, Medication Social History Tobacco Use Types Packs/Day Years [...] No 11/06/2015 documented as of this encounter Miscellaneous Notes * Telephone Encounter - Jossy Fuchs - 02/20/2016 1510 EDT Prior Authorization Approval Medication: Enbrel 50mg/mL (0.98mL) SureClick pen Approved: 02/21/2016 - 02/20/2017 Authorization Number: [id number] Pharmacy: [facility]) Prior Authorization Submission Process Medication: Enbrel 50mg/mL (0.98mL) SureClick pen Insurance: [employer] [place] Date PA Request Received: 02/19/2016 PA Submission Date: 02/21/2016 Submitted by: Jossy Álvarez documented in this encounter Plan of Treatment Upcoming Encounters Date Type Department Care Team (Late st Contact Info) Description 11/24/2023 10:00 EDT Telemedicine [facility] Rheumatology & Immunology - [facility] [address] [place], [place] [address] Harsh Malloy NP 111 [facility] 5 [place] [phone] documented as of this encounter Visit Diagnoses Not on filedocumented in this encounter Care Teams Chief Port Director Relationship Specialty Start Date End Date Meredith Rapp MD [address] [place] [address] PCP - General 08/09/10 08/04/18 documented as of this encounter
--- OUTSIDE RECORDS SUMMARY | 2023-11-13 17:03 | XMS_ITS | Encounter Summary ---
Author Organization [facility] Address [address] [place] [address] Care Team Providers Care Guyline Operator Name Role Phone Meredith Rapp MD Primary Care Provider [phone] Reason for Visit * Reason Onset Date Comments Results 05/06/2017 Encounter Details Date Type Department Care Team (Late st Contact Info) Description 05/06/2017 Telephone [facility] Rheumatology & Immunology - [address] [phone] Etelvina Hernandez MD [address] [place] [address], [address] [place] [address] Results Social History Tobacco Use Types Packs/Day Years [...] encounter Miscellaneous Notes * Telephone Encounter - Etelvina Hernandez MD - [...] Info) Description 11/24/2023 10:00 EDT Telemedicine [facility] Rheumatology & Immunology - [address] [address] Harsh Malloy, STERILE PROCESSING MANAGER 111 [facility], [address] [place] [phone] documented as of this encounter Visit Diagnoses Not on filedocumented in this encounter Care Teams Guyline Operator Relationship Specialty Start Date End Date Meredith Rapp MD [address] [place] [address] PCP - General 08/09/10 08/04/18 documented as of this encounter
--- OUTSIDE RECORDS SUMMARY | 2023-11-13 17:03 | XMS_ITS | Encounter Summary ---
Author Organization [facility] Address [address] [place] [address] Care Team Providers Care Shop Estimator Name Role Phone Meredith Rapp MD Primary Care Provider [phone] Reason for Visit * Reason Onset Date Comments Medications Refill 02/19/2016 Encounter Details Date Type Department Care Team (Late st Contact Info) Description 02/19/2016 Refill [facility] Rheumatology & Immunology - [address] [phone] Libertad Shelley RN Medications Refill Social History Tobacco Use [...] Dispensed Refills Start Date End Da te Etanercept (ENBREL SURECLICK) 50 mg/mL (0.98 mL) pen injector Inject 50 mg into the skin once a week. 12 Pen 3 02/19/2016 02/23/2016 documented in this encounter Plan of Treatment Upcoming Encounters Date Type Department Care Team (Late st Contact Info) Description 11/24/2023 10:00 EDT Telemedicine [facility] Rheumatology & Immunology - [address] [phone] Harsh Malloy, ELBERT 111 [facility], [address] [place] [phone] documented as of this encounter Visit Diagnoses Not on filedocumented in this encounter Discontinued Medications Medication Sig Discontinue Reason Start Date End Da te Etanercept (ENBREL SURECLICK) 50 mg/mL (0.98 mL) pen injector Inject 50 mg into the skin once a week Reorder 03/22/2015 02/19/2016 documented as of this encounter Care Teams Shop Estimator Relationship Specialty Start Date End Date Meredith Rapp MD [address] [place] [address] PCP - General 08/09/10 08/04/18 documented as of this encounter
--- OUTSIDE RECORDS SUMMARY | 2023-11-13 17:03 | XMS_ITS | Encounter Summary ---
Author Organization [facility] Address [address] [place] [address] Care Team Providers Care Survey Manager Name Role Phone Meredith Rapp MD Primary Care Provider [phone] Reason for Referral * Medication Prior Authorization (Routine) - Authorized Specialty Diagnoses / Procedures Referred By Twyla love Referred To Contact Diagnoses Need for pneumococcal vaccination Psoriatic arthropathy ([facility]) Encounter for long-term (current) use of medications Hammer toes of both feet Psoriasis with arthropathy ([facility]) Harsh Malloy NP [address] [place] [address] [address] [place] [address] Referral ID Status Reason Start Date Expiration Date Visits Requested Visits Authorized [id number] Authorized Medication Prior Authorization 8 1 1 Question Answer Medication to be Prior Authorized: Humira- failing enbrel Comments The purpose of this consult request is to inform the scheduling staff that a medication needs to be prior-authorized before it is prescribed and/or administered. Reason for Visit * Reason Comments Joint Pain knees, elbows, hands Back Pain lower back Encounter Details Date Type Department Care Team (Late st Contact Info) Description 05/14/2017 11:00 EST Office Visit [facility] Rheumatology & Immunology - [address] [phone] Harsh Malloy NP 111 [facility], [address] [place] [phone] Psoriatic arthropathy ([facility]) (Primary Dx); Need for pneumococcal vaccination; Encounter for long-term (current) use of medications; Hammer toes of both feet; Psoriasis with arthropathy (CMS-HCC) ([facility]) Discharge Disposition: Auto Discharge Social History Tobacco Use Types Packs/Day Years [...] No 05/14/2017 documented as of this encounter Discharge Diagnoses Diagnosis L40.50 Arthropathic psoriasis, unspecified-L40.50[ICD-10-CM] Z23 Encounter for immunization-Z23[ICD-10-CM] documented in this encounter Patient Instructions * Patient Instructions* Harsh Malloy NP - 05/14/2017 11:00 EST 1. We will prior authorization for Chris which may take up to two weeks, if you don't hear from the clinic please call. Continue Enbrel until you received the Humira. 2. Pneumonia 13 given today. Previous pneumonia 23 which you have had 2 vaccine of. 3. Please get labs today 4. F/U 3 months documented in this encounter Ordered Prescriptions Prescription Sig Dispensed Refills Start Date End Da te adalimumab (HUMIRA PEN) 40 mg/0.8 mL pen kit Every two weeks. 6 Pen 2 05/14/2017 12/25/2017 documented in this encounter Discharge Disposition Disposition Code Departure Means Destination Auto Discharge documented in this encounter Progress Notes * Harsh Malloy NP - 05/14/2017 1100 EST Patient ID: [...] at last visit and recommended to switch toHumira if worsening. Changes since last visit: Nina [...] day plus work outs before and after workincluding core exercises. Patient Active Problem List Diagnosis ??? Psoriasis with arthropathy (CMS-HCC) ??? Encounter for long-term (current) use of medications ??? Hypertensive disorder ??? Environmental allergies ??? Psoriasis ??? Psoriasis with arthropathy (CMS-HCC) Past Medical History: Diagnosis Date ??? Abnormal [...] pain with extension only. No significant tenderness topalaption. Normal range of motion of the spine. [...] knees hand and now low back which did not improve with increase of MTX from 7 [...] she will have any trouble with it. Shewill call if necessary. Plan: continue Enbrel until she [...] given today. Patient is currently on biologic therapy.Patient should receive either the PPSV23 or PCV13 vaccine, if indicated based on the CDC recommendations, either at the rheumatology office or PCP office. 5. Encounter usp meds- continue labs every 3-4 months CBC and CMP Encounter Diagnosis Name Primary? Need for pneumococcal vaccination Yes PLAN: 1. We will prior authorization for Humira which may take up to two weeks, if you don't hear from the clinic please call. Continue Enbrel until you received [...] Attestation statement: Supervising Physician Chuck Acuña MD * China Haro - 05/14/2017 1100 EST REVIEW [...] Info) Description 11/24/2023 10:00 EDT Telemedicine [facility] Rheumatology & Immunology - [address] [address] Harsh Malloy, GLUTEN SETTLING TENDER 111 [facility], [address] [place] [address] Scheduled Referrals Name Type Priority Associated Diagnoses Orde r Schedule AMB MEDICATION PRIOR AUTHORIZATION Outpatient Referral Routine Need for pneumococcal vaccination Psoriatic arthropathy ([facility]) Encounter for long-term (current) use of medications Hammer toes of both feet Psoriasis with arthropathy ([facility]) ([facility]) Ordered: 05/14/2017 documented as of this encounter Results * COMPREHENSIVE METABOLIC PANEL (CMP) (05/14/2017 11:56 EST) Potassium 4.2 3.5 - 5.0 mEq/L 05/14/2017 13:06 [facility] Sodium 141 136 - 145 mEq/L 05/14/2017 13:06 [facility] Chloride 103 96 - 110 mEq/L 05/14/2017 13:06 [facility] CO2 26 22 - 32 mEq/L 05/14/2017 13:06 [facility] Total Alkaline Phosphatase 61 38 - 126 U/L 05/14/2017 13:06 [facility] Bilirubin, Total 0.6 <1.4 mg/dl 05/14/19 18 13:06 [facility] AST 26 15 - 46 U/L 05/14/2017 13:06 [facility] ALT 36 <53 U/L 05/14/2017 13:06 [facility] Albumin 4.5 3.4 - 4.9 g/dl 05/14/2017 13:06 [facility] Total Protein 7.6 6.3 - 8.2 g/dl 05/14/2017 13:06 [facility] Creatinine 0.89 0.52 - 1.04 mg/dl 05/14/2017 13:06 [facility] GFR, Calculated 77 >60 ml/min/1.7 3m2 05/14/2017 13:06 [facility] Comment: eGFR calculated using CKD-EPI equation for non Americans. Multiply eGFR by 1.16 for Americans. BUN 18 10 - 26 mg/dl 05/14/2017 13:06 [facility] Calcium 9.5 8.5 - 10.5 mg/dl 05/14/2017 13:06 [facility] Calculated Calcium 9.1 8.5 - 10.5 mg/dl 05/14/2017 13:06 [facility] Glucose, Serum 86 70 - 100 mg/dl 05/14/2017 13:06 [facility] Fasting? No 05/14/2017 11:56 [facility] Blood specimen (specimen) BLOOD SPECIMEN / Unknown 05/14/2017 11:56 EST 05/14/2017 12:18 EST Harsh Malloy NP CHEMISTRY & BLOOD G ORDERABLES Performing Organization Address City/State/[facility] Co de Phone Number [facility] [address] [place] [address] * HEMAGRAM AND DIFFERENTIAL (05/14/2017 11:56 EST) WBC 7.79 4.0 - 12.4 K/cmm 05/14/2017 12:28 [facility] RBC 4.67 3.86 - 5.04 M/cmm 05/14/2017 12:28 [facility] Hemoglobin 14.5 11.6 - 15.2 gm/dl 05/14/2017 12:28 [facility] HCT 41.7 34.9 - 44.4 % 05/14/2017 12:28 [facility] MCV 89 81 - 98 fl 05/14/2017 12:28 [facility] MCH 31.0 26.7 - 33.3 pg 05/14/2017 12:28 [facility] MCHC 34.8 32.1 - 35.9 gm/dl 05/14/2017 12:28 [facility] RDW-CV 14.5 <14.7 % 05/14/2017 12:28 [facility] RDW-SD 46.6 <50.4 fl 05/14/2017 12:28 [facility] PLT 302 141 - 377 K/cmm 05/14/2017 12:28 [facility] MPV 9.7 9.5 - 12.7 fl 05/14/2017 12:28 [facility] % Neutrophils 60.5 % 05/14/2017 12:28 [facility] % Lymphocytes 28.4 % 05/14/2017 12:28 [facility] % Monocytes 8.6 % 05/14/2017 12:28 [facility] % Eosinophils 1.4 % 05/14/2017 12:28 [facility] % Basophils 0.6 % 05/14/2017 12:28 [facility] % Immature Grans 0.5 % 05/14/2017 12:28 [facility] ABS Neutrophils 4.71 2.20 - 8.85 K/cmm 05/14/2017 12:28 [facility] ABS Lymphs 2.21 1.09 - 3.30 K/cmm 05/14/2017 12:28 [facility] ABS Monocytes 0.67 0.1 - 0.8 K/cmm 05/14/2017 12:28 [facility] ABS Eosinophils 0.11 0.03 - 0.61 K/cmm 05/14/2017 12:28 [facility] ABS Basophils 0.05 0.01 - 0.11 K/cmm 05/14/2017 12:28 [facility] ABS Immature Grans 0.04 0 - 0.06 K/cmm 05/14/2017 12:28 [facility] Type of Diff: Automated 05/14/2017 12:28 [facility] Blood specimen (specimen) BLOOD SPECIMEN / Unknown 05/14/2017 11:56 EST 05/14/2017 12:18 EST Harsh Malloy GLUTEN SETTLING TENDER PACKAGES & DNA PROB E ORDERABLES [facility] [address] [place] [address] documented in this encounter Visit Diagnoses Diagnosis Psoriatic arthropathy (HCC-CMS)- Primary Psoriatic arthropathy Need for pneumococcal vaccination Need for prophylactic vaccination against streptococcus pneumoniae (pneumococcus) Encounter for long-term (current) use of medications Encounter for long-term (current) use of other medications Hammer toes of both feet Psoriasis with arthropathy (HCC-CMS) Psoriatic arthropathy documented in this encounter Discontinued Medications Medication Sig Discontinue Reason Start Date End Da te naproxen (NAPROSYN) 500 mg tablet Take 1 Tab by mouth 2 times daily with breakfast and dinner. Side effects 04/03/2016 05/14/2017 documented as of this encounter Historical Medications * This list may reflect changes made after this encounter. Medication Sig Dispensed Refills Start Date End Date DOCUSATE SODIUM (COLACE ORAL)Indications:Need for pneumococcal vaccination,Psoriatic arthropathy (HCC-CMS),Encounter for long-term (current) use of medications,Hammer toes of both feet,Psoriasis with arthropathy (HCC-CMS) Take by mouth. added in this encounter Orders Immunization/Injection Count Last Ordered Date First Ordered Date PNEUMOCOCCAL CONJ VACC PCV13 IM 1 8 documented in this encounter Care Teams Survey Manager Relationship Specialty Start Date End Date Meredith Rapp MD [address] [place] [address] PCP - General 08/09/10 08/04/18 documented as of this encounter
--- OUTSIDE RECORDS SUMMARY | 2023-11-13 17:03 | XMS_ITS | Encounter Summary ---
Author Organization [facility] Address [address] [place] [address] Care Team Providers Care Manager Applied Name Role Phone Unknown, Provider Primary Care Provider [phone] Reason for Visit * Reason Comments Joint Pain right knee has not t aking med due to a cold for 2 weeks Encounter Details Date Type Department Care Team (Late st Contact Info) Description 08/06/2018 11:00 EDT Office Visit [facility] Rheumatology & Immunology - [facility] [address] [place], [place] [phone] Harsh Malloy, BACK FACER [address] [facility], [address] [place] [address] Psoriasis with arthropathy (HCC-CMS) (Primary Dx); Encounter for long-term (current) use of medications; Viral upper respiratory tract infection Social History Tobacco Use Types Packs/Day Years [...] Patient Instructions * Patient Instructions* Harsh Malloy Aprn, APRN - 08/06/2018 11:00 EDT 1. Please have PCP clinic see you next week as URI should continue to improve, you do have some fine crackles right lower lobe 2. Continue to hold humira until upper respiratory infection resolved, if need antibiotics can holdmethotrexate if not improving 3. Continue labs every 3-4 months 4. Recommend shingix when well and when available 5. F/u 6 months Vaccine Information Statement: Shingrix Recombinant Zoster (Shingles) Vaccine, RZV: What you need to know Many Vaccine Information Statements are available in Nepalese and other languages. See www.immunize.org/vis Hojas de [...] it yourself through the VAERS website at www.vaers.[facility].gov, or by calling . VAERS does not give medical advice. 6. How can I learn more? Ask your health care provider. He or she can give you the vaccine package insert or suggest other sources of information. ??? Call your local or state health department. ??? Contact the Centers for Disease Control and Prevention (CDC): - Call (6-020-LWQ-INFO) or - Visit CDC???s website at www.cdc.gov/vaccines Vaccine Information Statement Recombinant Zoster Vaccine 06/09/2017 Department of Health and Human Services Centers for Disease Control and Prevention Office Use Only documented in this encounter Progress Notes * China Haro - 08/06/2018 1100 EDT REVIEW OF SYSTEMS: [...] below and update record yes * Harsh Malloy Aprn, APRN - 08/06/2018 1100 [...] dose. Fine crackles RLL- recommend be seen byPCP early next week. 2. No psoriasis 3. Patient is currently on biologic therapy. Patient should receive either the PPSV23 or PCV13 vaccine, if indicated based on the CDC recommendations, either at the rheumatology office or PCP office. Up to date on pneumonia 4. Continue labs every 3-4 months 5. Recommend shingrix when available Encounter Diagnoses Name Primary? Psoriasis with arthropathy (HCC-CMS) Yes ??? Encounter for long-term (current) use of medications PLAN: 1. Please have PCP clinic see you next week as URI should continue to improve, you do have some fine crackles right lower lobe 2. Continue to hold humira until upper respiratory infection resolved, if need antibiotics can holdmethotrexate if not improving 3. Continue labs every 3-4 months 4. Recommend shingix when well and when available 5. F/u 6 months 1. Psoriasis with arthropathy ([facility]) 2. Encounter for long-term (current) use of medications No orders of the defined types were placed in this encounter. Barriers to learning identified: No Patient verbalizes understanding and agrees with plan Yes I was directly supervised by: Dr. Hernandez . They were present in clinic and available for consult ifneeded. Harsh Malloy, ILEANA 08/06/2018 17:33 Attestation statement: Supervising Physician Etelvina Hernandez MD documented in this encounter Plan of Treatment Upcoming Encounters Date Type Department Care Team (Late st Contact Info) Description 11/24/2023 10:00 EDT Telemedicine [facility] Rheumatology & Immunology - [address] [phone] Harsh Malloy, ELBERT [address] [facility], [address] [place] [phone] documented as of this encounter Visit Diagnoses Diagnosis Psoriasis with arthropathy ([facility])- Primary Psoriatic arthropathy Encounter for long-term (current) use of medications Encounter for long-term (current) use of other medications Viral upper respiratory tract infection Acute upper respiratory infections of unspecified site documented in this encounter Discontinued Medications Medication Sig Discontinue Reason Start Date End Da te folic acid (FOLVITE) 1 mg tablet TAKE 1 TABLET DAILY Duplicate Therapy 06/19/2018 08/06/2018 documented as of this encounter Care Teams Manager Applied Relationship Specialty Start Date End Date Unknown, Provider, PCP - General 08/05/18 02/03/19 documented as of this encounter
--- OUTSIDE RECORDS SUMMARY | 2023-11-13 17:03 | XMS_ITS | Encounter Summary ---
Author Organization [facility] Address [address] [place] [address] Care Team Providers Care Shipfitter Apprentice Name Role Phone Meredith Rapp MD Primary Care Provider [phone] Reason for Visit * Reason Onset Date Comments Medications Refill 04/01/2016 Encounter Details Date Type Department Care Team (Late st Contact Info) Description 04/01/2016 Refill [facility] Dermatology [address] [id number] Rancho Mayberry MD [address] [place] [address] Medications Refill Social History Tobacco Use Types [...] No 11/06/2015 documented as of this encounter Plan of Treatment Upcoming Encounters Date Type Department Care Team (Late st Contact Info) Description 11/24/2023 10:00 EDT Telemedicine [facility] Rheumatology & Immunology - [address] [address] Harsh Malloy, INSURANCE POLICY ISSUE CLERK [address] [facility], [address] [place] [phone] documented as of this encounter Visit Diagnoses Diagnosis Dermatitis- Primary Contact dermatitis and other eczema, due to unspecified cause documented in this encounter Care Teams Shipfitter Apprentice Relationship Specialty Start Date End Date Meredith Rapp MD [address] [place] [address] PCP - General 08/09/10 08/04/18 documented as of this encounter
--- OUTSIDE RECORDS SUMMARY | 2023-11-13 17:03 | XMS_ITS | Encounter Summary ---
Author Organization [facility] Address [address] [place] [address] Care Team Providers Care Aviation Support Equipment Repairer Name Role Phone Meredith Rapp MD Primary Care Provider [phone] Reason for Referral * Medication Prior Authorization (Routine) - Closed Specialty Diagnoses / Procedures Referred By Twyla love Referred To Contact Diagnoses Psoriatic arthropathy ([facility]) Etelvina eHrnandez MD [address] [place] [address], [address] [place] [address] Referral ID Status Reason Start Date Expiration Date Visits Requested Visits Authorized [id number] Closed Medication Prior Authorization 05/13/2017 1 1 Question Answer Medication to be Prior Authorized: Enbrel 50 mg pen once weekly Comments The purpose of this consult request is to inform the scheduling staff that a medication needs to be prior-authorized before it is prescribed and/or administered. Encounter Details Date Type Department Care Team (Late st Contact Info) Description 05/13/2017 Orders Only [facility] Rheumatology & Immunology - [address] [address] Nasreen Rankin RN Psoriatic arthropathy ([facility]) (Primary Dx) Social History Tobacco Use Types [...] No 11/12/2016 documented as of this encounter Plan of Treatment Upcoming Encounters Date Type Department Care Team (Late st Contact Info) Description 11/24/2023 10:00 EDT Telemedicine [facility] Rheumatology & Immunology - [address] [address] Harsh Malloy, AIRBRUSH ARTIST [address] [place] [address], [address] [place] [address] Scheduled Referrals Name Type Priority Associated Diagnoses Order Schedule AMB MEDICATION PRIOR AUTHORIZATION Outpatient Referral Routine Psoriatic arthropathy ([facility]) Ordered: 05/13/2017 documented as of this encounter Visit Diagnoses Diagnosis Psoriatic arthropathy ([facility])- Primary Psoriatic arthropathy documented in this encounter Care Teams Aviation Support Equipment Repairer Relationship Specialty Start Date End Date Meredith Rapp MD [address] [place] [address] PCP - General 08/09/10 08/04/18 documented as of this encounter
--- OUTSIDE RECORDS SUMMARY | 2023-11-13 17:03 | XMS_ITS | Encounter Summary ---
Author Organization [facility] Address [address] [place] [address] Care Team Providers Care Building Mover Name Role Phone Unknown, Provider Primary Care Provider [phone] Reason for Visit * Reason Onset Date Comments Medications Refill 11/12/2018 Encounter Details Date Type Department Care Team (Late st Contact Info) Description 11/12/2018 Refill [facility] Rheumatology & Immunology - [address] [phone] Etelvina Hernandez MD [address] [place] [address], [address] [place] [address] Medications Refill Social History Tobacco [...] 1 Tab by mouth daily. 90 Tab 1 11/12/2018 04/30/2019 documented in this encounter Miscellaneous Notes * Telephone Encounter - Talisha Loja RN - 11/12/2018 0826 EDTFrom: Nina Boothe Sent: 11/12/2018 8:04 EDT Subject: Medication Renewal Request Nina Boothe would like a refill of the following medications: folic acid (FOLVITE) 1 mg tablet [Etelvina Hernandez MD] Preferred pharmacy: [address] documented in this encounter Plan of Treatment Upcoming Encounters Date Type Department Care Team (Late st Contact Info) Description 11/24/2023 10:00 EDT Telemedicine [facility] Rheumatology & Immunology - [facility] [address] [place] [address] Harsh Malloy, ELBERT 111 [facility], [address] [place] [phone] documented as of this encounter Visit Diagnoses Not on filedocumented in this encounter Discontinued Medications Medication Sig Discontinue Reason Start Date End Da te folic acid (FOLVITE) 1 mg tablet Take 1 Tab by mouth daily. Reorder 02/02/2018 11/12/2018 documented as of this encounter Care Teams Building Mover Relationship Specialty Start Date End Date Unknown, Provider, PCP - General 08/05/18 02/03/19 documented as of this encounter
--- OUTSIDE RECORDS SUMMARY | 2023-11-13 17:03 | XMS_ITS | Encounter Summary ---
Author Organization [facility] Address [address] [place] [address] Care Team Providers Care Service Center Assistant Name Role Phone Meredith Rapp MD Primary Care Provider [phone] Encounter Details Date Type Department Care Team (Latest Contact Info) Description 12/02/2017 14:45 EDT - 12/02/2017 23:59 EDT Hospital Encounter [address] [address] Unknown, Provider, Discharge Disposition: Home or Self Care Social [...] No 08/06/2017 documented as of this encounter Medications at Time of Discharge Medication Sig Dispensed Refills Start Date End Date acetaminophen (TYLENOL) 500 mg tablet Take 2 Tablets by mouth every 6 hours as needed. cetirizine (ZYRTEC) 10 mg tablet Take 1 Tablet by mouth daily. DOCUSATE SODIUM (COLACE ORAL)Indications:Need for pneumococcal vaccination,Psoriatic arthropathy ([facility]),Encounter for long-term (current) use of medications,Hammer toes of both feet,Psoriasis with arthropathy ([facility]) Take by mouth. fluocinonide (LIDEX) 0.05 % ointment Apply daily to rash if needed 1 Tube 3 05/07/2017 FLUTICASONE PROPIONATE (FLUTICASONE INHL) Inhale as directed daily. lisinopril (PRINIVIL, ZESTRIL) 10 mg tablet Take 1 Tablet by mouth daily. loratadine-pseudoephedrin e (CLARITIN-D 24-HOUR) 10-240 mg per tablet Take 1 Tablet by mouth daily as needed. Reported on 04/17/2016 montelukast (SINGULAIR) 10 mg tablet Take 1 Tablet by mouth daily. Multivitamins with Minerals Tab Take 1 Tablet by mouth daily. oxybutynin (DITROPAN) 5 mg tablet Take 1 Tablet by mouth daily. adalimumab (HUMIRA PEN) 40 mg/0.8 mL pen kit Every two weeks. 6 Pen 2 05/14/2017 12/25/2017 folic acid (FOLVITE) 1 mg tablet Take 1 Tab by mouth daily. 90 Tab 1 05/07/2017 02/01/2018 methotrexate 2.5 mg tablet Take 9 Tabs by mouth once a week. 108 Tab 3 05/07/2017 02/02/2018 documented as of this encounter Discharge Disposition Disposition Code Departure Means Destination Home or Self Assisted documented in this encounter Plan of Treatment Upcoming Encounters Date Type Department Care Team (Late st Contact Info) Description 11/24/2023 10:00 EDT Telemedicine [facility] Rheumatology & Immunology - [address] [phone] Harsh Malloy NP [address] [facility], [address] [place] [address] documented as of this encounter Visit Diagnoses Not on filedocumented in this encounter Care Teams Service Center Assistant Relationship Specialty Start Date End Date Meredith Rapp MD [address] [place] [address] PCP - General 08/09/10 08/04/18 documented as of this encounter
--- OUTSIDE RECORDS SUMMARY | 2023-11-13 17:03 | XMS_ITS | Encounter Summary ---
Author Organization [facility] Address [address] [place] [address] Care Team Providers Care Testing Lead Name Role Phone Meredith Rapp MD Primary Care Provider [phone] Reason for Visit * Reason Comments Other Encounter Details Date Type Department Care Team (Late st Contact Info) Description 06/25/2018 [facility] Rheumatology & Immunology - [facility] [address] [place], [place] [address] Harsh Malloy, ELBERT [address] [facility], [address] [place] [address] Other Social History Tobacco Use [...] Dispensed Refills Start Date End Da te HUMIRA PEN 40 mg/0.8 mL pen kit INJECT ONE PEN (40 MG) SUBCUTANEOUSLY EVERY OTHER WEEK. REFRIGERATE. 6 kit 1 06/29/2018 10/20/2018 documented in this encounter Plan of Treatment Upcoming Encounters Date Type Department Care Team (Late st Contact Info) Description 11/24/2023 10:00 EDT Telemedicine [facility] Rheumatology & Immunology - [facility] [address] [place], [place] [phone] Harsh Malloy DROP WIRER [address] [facility], [address] [place] [phone] documented as of this encounter Visit Diagnoses Not on filedocumented in this encounter Discontinued Medications Medication Sig Discontinue Reason Start Date End Da te adalimumab (HUMIRA PEN) 40 mg/0.8 mL pen kit Inject 1 Pen into the skin every 14 days. Reorder 12/25/2017 06/25/2018 documented as of this encounter Care Teams Testing Lead Relationship Specialty Start Date End Date Meredith Rapp MD [address] [place] [address] PCP - General 08/09/10 08/04/18 documented as of this encounter
--- OUTSIDE RECORDS SUMMARY | 2023-11-13 17:03 | XMS_ITS | Encounter Summary ---
Author Organization [facility] Address [address] [place] [address] Care Team Providers Care Belting Inspector Name Role Phone Meredith Rapp MD Primary Care Provider [phone] Reason for Visit * Reason Comments Other Encounter Details Date Type Department Care Team (Late st Contact Info) Description 02/01/2018 [facility] Rheumatology & Immunology - [address] [phone] Etelvina Hernandez MD [address] [place] [address], [address] [place] [address] Other Social History Tobacco Use [...] No 08/06/2017 documented as of this encounter Ordered Prescriptions Prescription Sig Dispensed Refills Start Date End Da te folic acid (FOLVITE) 1 mg tablet Take 1 Tab by mouth daily. 90 Tab 1 02/02/2018 11/12/2018 documented in this encounter Plan of Treatment Upcoming Encounters Date Type Department Care Team (Late st Contact Info) Description 11/24/2023 10:00 EDT Telemedicine [facility] Rheumatology & Immunology - [address] [address] Harsh Malloy GUEST SERVICE AGENT [address] [facility], [address] [place] [phone] documented as of this encounter Visit Diagnoses Not on filedocumented in this encounter Discontinued Medications Medication Sig Discontinue Reason Start Date End Da te folic acid (FOLVITE) 1 mg tablet Take 1 Tab by mouth daily. Reorder 05/07/2017 02/01/2018 documented as of this encounter Care Teams Belting Inspector Relationship Specialty Start Date End Date Meredith Rapp MD [address] [place] [address] PCP - General 08/09/10 08/04/18 documented as of this encounter
--- OUTSIDE RECORDS SUMMARY | 2023-11-13 17:03 | XMS_ITS | Encounter Summary ---
Author Organization [facility] Address [address] [place] [address] Care Team Providers Care Form Setter/Driver Name Role Phone Meredith Rapp MD Primary Care Provider Reason for Referral * Medication Prior Authorization (Routine) - Closed Specialty Diagnoses / Procedures Referred By Twyla love Referred To Contact Diagnoses Psoriasis with arthropathy ([facility]) Nat Sutherland MD [address] [place] [phone] Referral ID Status Reason Start Date Expiration Date Visits Requested Visits Authorized [id number] Closed Medication Prior Authorization 6 1 1 Question Answer Medication to be Prior Authorized: ??Etanercept (ENBREL SURECLICK) 50 mg/mL (0.98 mL) pen injector, Inject 50 mg into the skin once a week. Comments The purpose of this consult request is to inform the scheduling staff that a medication needs to be prior-authorized before it is prescribed and/or administered. Encounter Details Date Type Department Care Team (Late st Contact Info) Description 02/19/2016 Orders Only [facility] Rheumatology & Immunology - [facility] [address] [place] [address] Libertad Shelley, IMAN Psoriasis with arthropathy ([facility]) ([facility]) (Primary Dx) Social History Tobacco Use Types [...] Telemedicine [facility] Rheumatology & Immunology - [address] [address] Harsh Malloy NP [address] [facility], [address] [place] [phone] Scheduled Referrals Name Type Priority Associated Diagnoses Order Schedule AMB MEDICATION PRIOR AUTHORIZATION Outpatient Referral Routine Psoriasis with arthropathy ([facility]) ([facility]) Ordered: 02/19/2016 documented as of this encounter Visit Diagnoses Diagnosis Psoriasis with arthropathy ([facility])- Primary Psoriatic arthropathy documented in this encounter Care Teams Form Setter/Driver Relationship Specialty Start Date End Date Meredith Rapp MD [address] [place] [address] PCP - General 08/09/10 08/04/18 documented as of this encounter
--- OUTSIDE RECORDS SUMMARY | 2023-11-13 17:03 | XMS_ITS | Encounter Summary ---
Author Organization [facility] Address [address] [place] [address] Care Team Providers Care Publications Distribution Clerk Name Role Phone Meredith Rapp MD Primary Care Provider [phone] Reason for Visit * Reason Comments Other Encounter Details Date Type Department Care Team (Late st Contact Info) Description 02/12/2017 [facility] Rheumatology & Immunology - [address] [address] Etelvina Hernandez MD [address] [place] [address], [address] [place] [address] Other Social History Tobacco Use [...] No 11/12/2016 documented as of this encounter Ordered Prescriptions Prescription Sig Dispensed Refills Start Date End Da te ENBREL SURECLICK 50 mg/mL (0.98 mL) pen injector INJECT 50 MG UNDER THE SKIN ONCE A WEEK 11.76 mL 1 02/13/2017 05/29/2017 documented in this encounter Plan of Treatment Upcoming Encounters Date Type Department Care Team (Late st Contact Info) Description 11/24/2023 10:00 EDT Telemedicine [facility] Rheumatology & Immunology - [facility] [address] [place] [address] Harsh Malloy NP [address] [facility], [address] [place] [phone] documented as of this encounter Visit Diagnoses Not on filedocumented in this encounter Discontinued Medications Medication Sig Discontinue Reason Start Date End Da te Etanercept (ENBREL SURECLICK) 50 mg/mL (0.98 mL) pen injector Inject 50 mg into the skin once a week. Reorder 09/09/2016 02/12/2017 documented as of this encounter Care Teams Publications Distribution Clerk Relationship Specialty Start Date End Date Meredith Rapp MD [address] [place] [address] PCP - General 08/09/10 08/04/18 documented as of this encounter
--- OUTSIDE RECORDS SUMMARY | 2023-11-13 17:03 | XMS_ITS | Encounter Summary ---
Author Organization [facility] Address [address] [place] [address] Care Team Providers Care Shelf Drier Operator Name Role Phone Meredith Rapp MD Primary Care Provider [phone] Reason for Visit * Reason Onset Date Comments Medications Refill 05/06/2017 Encounter Details Date Type Department Care Team (Late st Contact Info) Description 05/06/2017 Refill [facility] Rheumatology & Immunology - [address] [phone] Etelvina Hernandez MD [address] [place] [address], [address] [place] [address] Medications Refill Social History Tobacco [...] Dispensed Refills Start Date End Da te fluocinonide (LIDEX) 0.05 % ointment Apply daily to rash if needed 1 Tube 3 05/07/2017 folic acid (FOLVITE) 1 mg tablet Take 1 Tab by mouth daily. 90 Tab 1 05/07/2017 02/01/2018 methotrexate 2.5 mg tablet Take 9 Tabs by mouth once a week. 108 Tab 3 05/07/2017 02/02/2018 documented in this encounter Miscellaneous Notes * Telephone Encounter - Marisol Tejeda RN - 05/07/2017 1054 ESTFrom: Nina Boothe To: Etelvina Hernandez MD Sent: 05/06/2017 19:53 EST Subject: Medication Renewal Request Original authorizing provider: MD Nina Turner would like a refill of the following medications: fluocinonide (LIDEX) 0.05 % ointment [Etelvina Hernandez MD] methotrexate 2.5 mg tablet [Etelvina Hernandez MD] folic acid (FOLVITE) 1 mg tablet [Etelvina Hernandez MD] Preferred pharmacy: Other - [facility] Comment: Due to my recent insurance change, I am now required to use [facility] online. Medication renewals requested in this message routed to other providers: clobetasol (TEMOVATE) 0.05 % external solution [Cat Dodson MD] documented in this encounter Plan of Treatment Upcoming Encounters Date Type Department Care Team (Late st Contact Info) Description 11/24/2023 10:00 EDT Telemedicine [facility] Rheumatology & Immunology - [address] [address] Harsh Malloy NP [address] [place] [address], [address] [place] [phone] documented as of this encounter Visit Diagnoses Not on filedocumented in this encounter Discontinued Medications Medication Sig Discontinue Reason Start Date End Da te fluocinonide (LIDEX) 0.05 % ointment Apply daily to rash if needed Reorder 04/03/2016 05/06/2017 methotrexate 2.5 mg tablet Take 9 Tabs by mouth once a week. Reorder 11/12/2016 05/06/2017 folic acid (FOLVITE) 1 mg tablet TAKE 1 TABLET DAILY Reorder 04/05/2017 05/06/2017 documented as of this encounter Care Teams Shelf Drier Operator Relationship Specialty Start Date End Date Meredith Rapp MD [address] [place] [address] PCP - General 08/09/10 08/04/18 documented as of this encounter
--- OUTSIDE RECORDS SUMMARY | 2023-11-13 17:03 | XMS_ITS | Encounter Summary ---
Author Organization [facility] Address [address] [place] [address] Care Team Providers Care Button Attaching Machine Operator Name Role Phone Unknown, Provider Primary Care Provider Reason for Visit * Reason Onset Date Comments Medications Refill 10/20/2018 Encounter Details Date Type Department Care Team (Late st Contact Info) Description 10/20/2018 Telephone [facility] Rheumatology & Immunology - [address] [address] Harsh Malloy, IT SERVICE CONTINUITY SUPERVISOR 111 [facility], [address] [place] [address] Medications Refill Social History Tobacco [...] into the skin every 14 days. Specialty. 3 Kit 1 10/22/2018 05/10/2019 adalimumab (HUMIRA PEN) 40 mg/0.8 mL pen kit Inject 1 Pen into the skin every 14 days. 6 Pen 1 10/22/2018 10/22/2018 documented in this encounter Miscellaneous Notes * Addendum Note - Eric Redmond RPH - 10/22/2018 1325 EDTAddended by: ERIC REDMOND on: 10/22/2018 13:25 Modules accepted: Orders * Telephone Encounter - Talisha Loja RN - 10/22/2018 0942 EDTFrom: Nina Boothe Sent: 10/20/2018 15:25 EDT Subject: Medication Renewal Request Nina Boothe would like a refill of the following medications: HUMIRA PEN 40 mg/0.8 mL pen kit [Harsh Malloy, PRIMARY MILL ROLLER] Patient Comment: [facility] says that they are waiting for a refill authorization from my provider. I am not sure why as they were supposed to be processing an insurance coverage change....but they asked that I reach out to you. Preferred pharmacy: [facility] - [address] documented in this encounter Plan of Treatment Upcoming Encounters Date Type Department Care Team (Late st Contact Info) Description 11/24/2023 10:00 EDT Telemedicine [facility] Rheumatology & Immunology - [address] [address] Harsh Malloy NP 111 [facility], [address] [place] [phone] documented as of this encounter Visit Diagnoses Not on filedocumented in this encounter Discontinued Medications Medication Sig Discontinue Reason Start Date End Da te HUMIRA PEN 40 mg/0.8 mL pen kit INJECT ONE PEN (40 MG) SUBCUTANEOUSLY EVERY OTHER WEEK. REFRIGERATE. Reorder 06/29/2018 10/20/2018 adalimumab (HUMIRA PEN) 40 mg/0.8 mL pen kit Inject 1 Pen into the skin every 14 days. Error 10/22/2018 10/22/2018 documented as of this encounter Care Teams Button Attaching Machine Operator Relationship Specialty Start Date End Date Unknown, Provider, PCP - General 08/05/18 02/03/19 documented as of this encounter
--- OUTSIDE RECORDS SUMMARY | 2023-11-13 17:03 | XMS_ITS | Encounter Summary ---
Author Organization [facility] Address [address] [place] [address] Care Team Providers Care Cook Cold Meat Name Role Phone Unknown, Provider Primary Care Provider [phone] Reason for Referral * Medication Prior Authorization (Routine) - Closed Specialty Diagnoses / Procedures Referred By Twyla love Referred To Contact Pharmacy Diagnoses Psoriatic arthropathy ([facility]) Encounter for long-term (current) use of medications Hammer toes of both feet Harsh Malloy, ELBERT [address] [facility], [facility] 5 [place] [address] [facility] [address] [place] [address] Referral ID Status Reason Start Date Expiration Date Visits Requested Visits Authorized [id number] Closed Medication Prior Authorization 10/16/2018 1 1 Question Answer Medication to be Prior Authorized: Reauthorize humira 40 mg/0.8 pen kit subcutaneously every 14 days for psoriatic arthropathy Comments The purpose of this consult request is to inform the scheduling staff that a medication needs to be prior-authorized before it is prescribed and/or administered. Reason for Visit * Reason Onset Date Comments Prior Auth, Medication 10/16/2018 Humira Encounter Details Date Type Department Care Team ([facility] st Contact Info) Description 10/16/2018 Telephone [facility] Rheumatology & Immunology - [facility] [address] [place], [place] [address] Harsh Malloy, ELBERT [address] [facility], [address] 5 [place] [address] Prior Auth, Medication (Humira) Social [...] encounter Miscellaneous Notes * Telephone Encounter - Eric Redmond, [facility] - 11/03/2018 1000 EDT Routine Tuberculosis Risk Assessment for Use of Biologic Medications This patient is using a biologic medication, Humira (adalimumab). Following the [employer] guidance, a risk assessment of tuberculosis (TB) [...] clients are at an increased risk for active TB ??? 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 NO Have you traveled outside the [place] in the past 5 years, specifically to [place], [place], [place], or [place]*? NO Have you worked or lived in a correctional facility, long-term care facility, or homeless alf in the past 5 years? NO Are you a healthcare worker? NO A risk for tuberculosis was not identified and re-screening is not recommended at this time. Repeat TB risk assessment in 5 years (NOVEMBER/2023). *[place], [place], [place], [place], [place], [place], [place], [place], [place], [place], [place], [place], [place], [place], [place], [place], [place], [place], [place], [place], [place]. Erick JA, et al. Arthritis Care & Research. 2012. 64(5): 625-639. * Telephone Encounter - Jossy Fuchs - 10/20/2018 1551 EDT Prior Authorization Approval Medication: Humira 40mg/0.8mL pen Approval Dates: 09/21/2018 - 10/21/2019 Authorization Number: [id number] Pharmacy: [facility] or [facility] (plan restriction) Notes: 10/22- Left msg to inform pt of approval & pharmacy restrictions. Prior Authorization Submission Process Medication: Humira 40mg/0.8mL pen Insurance: [place] (L4FA) Date PA Request Received: 10/16/2018 PA Submission Date: 10/21/2018 * Telephone Encounter - Marleny Rodriguez - 10/16/2018 1503 EDT Reason for Call: Prior Auth, Medication (Humira) Summary/Symptoms: [facility] calling to state a pt needs a PA done for Humira. They arerequesting a call back with decision once received. Marleny Rodriguez 10/16/2018 15:04 documented in this encounter Plan of Treatment Upcoming Encounters Date Type Department Care Team (Late st Contact Info) Description 11/24/2023 10:00 EDT Telemedicine [facility] Rheumatology & Immunology - [address] [address] Harsh Malloy, SEEING EYE DOG TRAINER [address] [facility], [address] [place] [phone] Scheduled Referrals Name Type Priority Associated Diagnoses Order Schedule AMB MEDICATION PRIOR AUTHORIZATION Outpatient Referral Routine Psoriatic arthropathy ([facility]) Encounter for long-term (current) use of medications Hammer toes of both feet Ordered: 10/16/2018 documented as of this encounter Visit Diagnoses Diagnosis Psoriatic arthropathy ([facility])- Primary Psoriatic arthropathy Encounter for long-term (current) use of medications Encounter for long-term (current) use of other medications Hammer toes of both feet documented in this encounter Care Teams Cook Cold Meat Relationship Specialty Start Date End Date Unknown, Provider, PCP - General 08/05/18 02/03/19 documented as of this encounter
--- OUTSIDE RECORDS SUMMARY | 2023-11-13 17:03 | XMS_ITS | Encounter Summary ---
Author Organization [facility] Address [address] [place] [address] Care Team Providers Care Weatherization Field Technician Name Role Phone Unknown, Provider Primary Care Provider [phone] Encounter Details Date Type Department Care Team (Late st Contact Info) Description 10/22/2018 Specialty Pharmacy [facility] [address] [address] Eric Redmond [place] Social History Tobacco Use [...] [facility] Rheumatology & Immunology [address] [place] [address] Harsh Malloy, ELBERT 111 [facility], [address] [place] [address] documented as of this encounter Visit Diagnoses Not on filedocumented in this encounter Care Teams Weatherization Field Technician Relationship Specialty Start Date End Date Unknown, Provider, PCP - General 08/05/18 02/03/19 documented as of this encounter
--- OUTSIDE RECORDS SUMMARY | 2023-11-13 17:03 | XMS_ITS | Encounter Summary ---
Author Organization [facility] Address [address] [place] [address] Care Team Providers Care Control Panel Operator Name Role Phone Meredith Rapp MD Primary Care Provider [phone] Reason for Visit * Reason Comments Other Encounter Details Date Type Department Care Team (Late st Contact Info) Description 07/08/2016 [facility] Rheumatology & Immunology - [address] [address] Etelvina Hernandez MD [address] [place] [address], [address] [place] [address] Other Social History Tobacco Use [...] No 04/17/2016 documented as of this encounter Ordered Prescriptions Prescription Sig Dispensed Refills Start Date End Da te folic acid (FOLVITE) 1 mg tablet TAKE 1 TABLET DAILY 90 Tab 2 07/08/2016 04/04/2017 documented in this encounter Plan of Treatment Upcoming Encounters Date Type Department Care Team (Late st Contact Info) Description 11/24/2023 10:00 EDT Telemedicine [facility] Rheumatology & Immunology - [address] [address] Harsh Malloy NP 111 [facility], [address] [place] [phone] documented as of this encounter Visit Diagnoses Not on filedocumented in this encounter Discontinued Medications Medication Sig Discontinue Reason Start Date End Da te folic acid (FOLVITE) 1 mg tablet Take 1 Tab by mouth daily. Reorder 07/12/2015 07/08/2016 documented as of this encounter Care Teams Control Panel Operator Relationship Specialty Start Date End Date Meredith Rapp MD [address] [place] [address] PCP - General 08/09/10 08/04/18 documented as of this encounter
--- OUTSIDE RECORDS SUMMARY | 2023-11-13 17:03 | XMS_ITS | Encounter Summary ---
Author Organization [facility] Address [address] [place] [address] Care Team Providers Care Software Tools Engineer Name Role Phone Meredith Rapp MD Primary Care Provider [phone] Reason for Visit * Reason Onset Date Comments Medications Refill 09/06/2016 Encounter Details Date Type Department Care Team (Late st Contact Info) Description 09/06/2016 Refill [facility] Rheumatology & Immunology - [address] [phone] Etelvina Henrandez MD [address] [place] [address], [address] [place] [address] Medications Refill Social History Tobacco [...] the skin once a week. 12 Pen 1 09/09/2016 02/12/2017 documented in this encounter Miscellaneous Notes * Telephone Encounter - Talisha Loja RN - 09/09/2016 0818 EDTFrom: Nina Boothe To: Etelvina Hernandez MD Sent: 09/06/2016 16:26 EDT Subject: Medication Renewal Request Original authorizing provider: MD Nina Turner would like a refill of the following medications: Etanercept (ENBREL SURECLICK) 50 mg/mL (0.98 mL) pen injector [Etelvina Hernandez MD] Preferred pharmacy: [facility] - [address] Comment: [facility] let me know that they have been trying to contact the office with a question about my prescription but they have been unable to reach anyone. They are now requiring a brand new prescription and will not refill without one. At this time, I have used my last shot and am due again on Friday. documented in this encounter Plan of Treatment Upcoming Encounters Date Type Department Care Team (Late st Contact Info) Description 11/24/2023 10:00 EDT Telemedicine [facility] Rheumatology & Immunology - [facility] [address] [place], [place] [address] Harsh Malloy NP 111 [facility], [facility] 5 [place] [address] documented as of this encounter Visit Diagnoses Not on filedocumented in this encounter Discontinued Medications Medication Sig Discontinue Reason Start Date End Da te Etanercept (ENBREL SURECLICK) 50 mg/mL (0.98 mL) pen injector Inject 50 mg into the skin once a week. Reorder 08/08/2016 09/06/2016 documented as of this encounter Care Teams Software Tools Engineer Relationship Specialty Start Date End Date Meredith Rapp MD [address] [place] [address] PCP - General 08/09/10 08/04/18 documented as of this encounter
--- OUTSIDE RECORDS SUMMARY | 2023-11-13 17:03 | XMS_ITS | Encounter Summary ---
Author Organization [facility] Address [address] [place] [address] Care Team Providers Care Automobile Mechanic Supervisor Name Role Phone Meredith Rapp MD Primary Care Provider [phone] Reason for Visit * Reason Comments Other Encounter Details Date Type Department Care Team (Late st Contact Info) Description 02/23/2016 [facility] Rheumatology & Immunology - [address] [address] Tabatha Degroot PA-C [address] [facility] [facility] [address] [place] [address] Other Social History Tobacco Use [...] SKIN ONCE A WEEK 11.76 mL 1 02/23/2016 08/08/2016 documented in this encounter Miscellaneous Notes * Telephone Encounter - Maria Esther Aguilar, RN - 02/23/2016 1110 EDT Sent to [facility] in error. New rx sent to [facility]. documented in this encounter Plan of Treatment Upcoming Encounters Date Type Department Care Team (Late st Contact Info) Description 11/24/2023 10:00 EDT Telemedicine [facility] Rheumatology & Immunology - [address] [address] Harsh Malloy, SECOND STEWARD 111 [facility], [address] [place] [address] documented as of this encounter Visit Diagnoses Not on filedocumented in this encounter Discontinued Medications Medication Sig Discontinue Reason Start Date End Da te Etanercept (ENBREL SURECLICK) 50 mg/mL (0.98 mL) pen injector Inject 50 mg into the skin once a week. 02/19/2016 02/23/2016 documented as of this encounter Care Teams Automobile Mechanic Supervisor Relationship Specialty Start Date End Date Meredith Rapp MD [address] [place] [address] PCP - General 08/09/10 08/04/18 documented as of this encounter
--- OUTSIDE RECORDS SUMMARY | 2023-11-13 17:03 | XMS_ITS | Encounter Summary ---
Author Organization [facility] Address [address] [place] [address] Care Team Providers Care Rubber Flap Tuber Machine Operator Name Role Phone Meredith Rapp MD Primary Care Provider [phone] Reason for Visit * Reason Comments Other Encounter Details Date Type Department Care Team (Late st Contact Info) Description 04/04/2017 [facility] Rheumatology & Immunology - [address] [phone] Etelvina Hernandez MD [address] [place] [address], [address] [place] [address] Other Social History Tobacco Use [...] tablet TAKE 1 TABLET DAILY 90 Tab 3 04/05/2017 05/06/2017 documented in this encounter Plan of Treatment Upcoming Encounters Date Type Department Care Team (Late st Contact Info) Description 11/24/2023 10:00 EDT Telemedicine [facility] Rheumatology & Immunology - [address] [phone] Harsh Malloy NP 111 [facility], [address] [place] [phone] documented as of this encounter Visit Diagnoses Not on filedocumented in this encounter Discontinued Medications Medication Sig Discontinue Reason Start Date End Da te folic acid (FOLVITE) 1 mg tablet TAKE 1 TABLET DAILY Reorder 07/08/2016 04/04/2017 documented as of this encounter Care Teams Rubber Flap Tuber Machine Operator Relationship Specialty Start Date End Date Meredith Rapp MD [address] [place] [address] PCP - General 08/09/10 08/04/18 documented as of this encounter
--- OUTSIDE RECORDS SUMMARY | 2023-11-13 17:03 | XMS_ITS | Encounter Summary ---
Author Organization [facility] Address [address] [place] [address] Care Team Providers Care Consumer Relations Specialist Name Role Phone Unknown, Provider Primary Care Provider [phone] Reason for Visit * Reason Onset Date Comments Medications Refill 11/05/2018 Encounter Details Date Type Department Care Team (Late st Contact Info) Description 11/05/2018 Refill [facility] Rheumatology & Immunology - [address] [address] Harsh Malloy, DIRECTIONAL DRILL OPERATOR [address] [place] [address], [address] [place] [address] Medications Refill Social History Tobacco [...] by mouth once a week. 108 Tab 1 11/06/2018 04/24/2019 documented in this encounter Miscellaneous Notes * Telephone Encounter - Talisha Loja RN - 11/06/2018 0813 EDTFrom: Nina Boothe Sent: 11/05/2018 20:18 EDT Subject: Medication Renewal Request Nina Krissy Gasparsarah would like a refill of the following medications: methotrexate 2.5 mg tablet [Harsh Malloy, HIGHWAY ENGINEERING TEACHER] Preferred pharmacy: [facility] documented in this encounter Plan of Treatment Upcoming Encounters Date Type Department Care Team (Late st Contact Info) Description 11/24/2023 10:00 EDT Telemedicine [facility] Rheumatology & Immunology - [address] [phone] Harsh Malloy NP 111 [facility], [address] [place] [phone] documented as of this encounter Visit Diagnoses Not on filedocumented in this encounter Discontinued Medications Medication Sig Discontinue Reason Start Date End Da te methotrexate 2.5 mg tablet Take 9 tablets by mouth once a week. Reorder 07/22/2018 11/05/2018 documented as of this encounter Care Teams Consumer Relations Specialist Relationship Specialty Start Date End Date Unknown, Provider, PCP - General 08/05/18 02/03/19 documented as of this encounter
--- OUTSIDE RECORDS SUMMARY | 2023-11-13 17:03 | XMS_ITS | Encounter Summary ---
Author Organization [facility] Address [address] [place] [address] Care Team Providers Care Die Engraver Name Role Phone Meredith Rapp MD Primary Care Provider [phone] Reason for Visit * Reason Onset Date Comments Results 07/13/2018 Encounter Details Date Type Department Care Team (Late st Contact Info) Description 07/13/2018 Telephone [facility] Rheumatology & Immunology - [address] [phone] Etelvina Hernandez MD [address] [place] [address], [address] [place] [address] Results Social History Tobacco Use [...] Notes * Telephone Encounter - Etelvina Hernandez MD, MD [...] Contact Info) Description 11/24/2023 10:00 EDT Telemedicine [facility] Rheumatology & Immunology - [address] [address] Harsh Malloy, SWEET PICKLE MAKER 111 [facility], [address] [place] [address] documented as of this encounter Visit Diagnoses Not on filedocumented in this encounter Care Teams Die Engraver Relationship Specialty Start Date End Date Meredith Rapp MD [address] [place] [address] PCP - General 08/09/10 08/04/18 documented as of this encounter
--- OUTSIDE RECORDS SUMMARY | 2023-11-13 17:03 | XMS_ITS | Encounter Summary ---
Author Organization [facility] Address [address] [place] [address] Care Team Providers Care Housing Liaison Name Role Phone Meredith Rapp MD Primary Care Provider [phone] Reason for Visit * Reason Comments Other Encounter Details Date Type Department Care Team (Late st Contact Info) Description 06/17/2018 [facility] Rheumatology & Immunology - [address] [phone] Etelvina Hernandez MD [address] [place] [address], [address] [place] [address] Other Social History Tobacco Use [...] tablet TAKE 1 TABLET DAILY 90 Tab 1 06/19/2018 08/06/2018 documented in this encounter Plan of Treatment Upcoming Encounters Date Type Department Care Team (Late st Contact Info) Description 11/24/2023 10:00 EDT Telemedicine [facility] Rheumatology & Immunology - [address] [phone] Harsh Malloy NP 111 [facility], [address] [place] [phone] documented as of this encounter Visit Diagnoses Not on filedocumented in this encounter Care Teams Housing Liaison Relationship Specialty Start Date End Date Meredith Rapp MD [address] [place] [address] PCP - General 08/09/10 08/04/18 documented as of this encounter
--- OUTSIDE RECORDS SUMMARY | 2023-11-13 17:03 | XMS_ITS | Encounter Summary ---
Author Organization [facility] Address [address] [place] [address] Care Team Providers Care Subsurface Augmentee Elint Operator Name Role Phone Meredith Rapp MD Primary Care Provider [phone] Encounter Details Date Type Department Care Team (Late st Contact Info) Description 11/07/2017 Results Only [facility]- [facility] [[email or web address]] [phone] nA Crespo, [facility]- [address] [place] [id number] Social History Tobacco Use Types Packs/Day Years [...] [facility] Rheumatology & Immunology - [facility] [address] [place] [address] Harsh Malloy NP 111 [facility], [address] [place] [address] documented as of this encounter Procedures Procedure Name Priority Date/Time Associated Diagnosis Comments PAP TEST- RESULT ONLY Routine 11/07/2017 0:00 EDT documented in this encounter Results * PAP TEST- RESULT ONLY (11/07/2017 0:00 EDT) Pathology Report: CYTOPATHOLOGY REPORT Reports generated via electronic interface contain original data; however they are lacking the format of the original report. Caution should be taken when reading/interpreti ng unformatted reports. Name: ? REILLY HUI ? Accession #: ? [id number] ? : ? 1970 (Age: 47) ??F ?Collect Date: ? 11/07/2017 ? Location: ? [facility] ? Receive Date: ? 11/11/2017 ? Provider: AN [place] DESIGNER-BC Copy to: ? Final Report SPECIMEN ADEQUACY ? Satisfactory for Evaluation - transformation zone component present GENERAL CATEGORIZATION ? Other, see interpretation INTERPRETATION ? Reactive cellular changes associated with inflammation present (includes repair). Endometrial cells present in a woman equal to or greater than age 45. Negative for Intraepithelial Lesion. EDUCATIONAL NOTES/RECOMMENDATI ONS ? ASCCP management guidelines advises using histologic endometrial assessment only in postmenopausal women. Benign appearing endometrial cells on Pap tests are usually a normal finding in women with regular menstrual cycles, especially if the Pap test was collected during the first half of the menstrual cycle. There is data showing that endometrial cells on Pap tests may be associated with endometrial/uterin e abnormalities in post menopausal women or in perimenopausal women with abnormal bleeding. There is limited data on the significance of benign endometrial cells in post menopausal women on HRT. ??Clinical correlation is recommended. Note: ??The Pap test is not an accurate test for the screening of endometrial lesions and should not be used as a follow up in patients with clinical suspicion of endometrial pathology. Last Menstrual Period: 10/10/17 approx Specimen/Source: ??Pap Test, Cervix, ThinPrep Imaging System with manual evaluation Document reviewed and electronically signed by: ? RAIN STERLING MD ? Report ??Date: 11/21/2017 15:37 HPV with Pap Test ? Date Ordered: ? 11/21/2017 ? Status: ?? Signed Out ?Date Complete: ? 11/24/2017 ? By: ??System Interface ? Date Reported: ? 11/24/2017 ? Interpretation RESULT: Negative for HPV. No E6 or E7 mRNA is detected from HPV types 16,18,31,33,35, 39,45,51,52,56,58, 59,66, and 68 by environmental engineering manager mediated amplification. Comments Document reviewed and electronically signed by: ? System Interface ? Report date: 11/24/2017 By the signature above, the attending physician certifies that he/she has personally conducted a gross and/or microscopic examination of the described specimens and rendered or confirmed the above diagnosis. End of Report [facility] 11/07/2017 11/11/2017 An Crespo [facility]- PATHOLOGY ORDERA TRESA [facility] [address] [place] [address] documented in this encounter Visit Diagnoses Not on filedocumented in this encounter Care Teams Subsurface Augmentee Elint Operator Relationship Specialty Start Date End Date Meredith Rapp MD [address] [place] [address] PCP - General 08/09/10 08/04/18 documented as of this encounter
--- OUTSIDE RECORDS SUMMARY | 2023-11-13 17:03 | XMS_ITS | Encounter Summary ---
Author Organization [facility] Address [address] [place] [address] Care Team Providers Care Validation Technician Name Role Phone Meredith Rapp MD Primary Care Provider [phone] Reason for Visit * Reason Comments Other Encounter Details Date Type Department Care Team (Late st Contact Info) Description 10/18/2016 [facility] Rheumatology & Immunology - [address] [id number] Etelvina Hernandez MD [address] [place] [address], [address] [place] [address] Other Social History Tobacco Use [...] Da te methotrexate 2.5 mg tablet TAKE 7 TABLETS ONCE A WEEK 91 Tab 1 10/18/2016 11/12/2016 documented in this encounter Plan of Treatment Upcoming Encounters Date Type Department Care Team (Late st Contact Info) Description 11/24/2023 10:00 EDT Telemedicine [facility] Rheumatology & Immunology - [address] [phone] Harsh Malloy NP 111 [facility], [address] [place] [address] documented as of this encounter Visit Diagnoses Not on filedocumented in this encounter Discontinued Medications Medication Sig Discontinue Reason Start Date End Da te methotrexate 2.5 mg tablet Take 7 Tabs by mouth once a week. Reorder 04/17/2016 10/18/2016 documented as of this encounter Care Teams Validation Technician Relationship Specialty Start Date End Date Meredith Rapp MD [address] [place] [address] PCP - General 08/09/10 08/04/18 documented as of this encounter
--- OUTSIDE RECORDS SUMMARY | 2023-11-13 17:03 | XMS_ITS | Encounter Summary ---
Author Organization [facility] Address [address] [place] [address] Care Team Providers Care Escrow Agent Name Role Phone Meredith Rapp MD Primary Care Provider [phone] Unknown, Provider Primary Care Provider [phone] Kayleigh Mallory Primary Care Provider [phone] Encounter Details Date Type Department Care Team (Late st Contact Info) Description 05/15/2017 Telephone [facility] Rheumatology & Immunology - [facility] [address] [place], [place] [phone] Harsh Malloy, ELBERT 111 [facility], [address] [place] [address] Social History Tobacco Use Types [...] No 05/14/2017 documented as of this encounter Miscellaneous Notes * Telephone Encounter - Harsh Malloy NP - [...] [facility] Rheumatology & Immunology - [address] [address] Harsh Malloy MANAGER POWER [address] [place] [address], [address] [place] [address] documented as of this encounter Visit Diagnoses Not on filedocumented in this encounter Care Teams Escrow Agent Relationship Specialty Start Date End Date Meredith Rapp MD [address] [place] [address] PCP - General 08/09/10 08/04/18 Unknown, MD Geronimo [address] [place] [address] PCP - General 08/05/18 02/03/19 Kayleigh Mallory FNP [address] [place] [address] PCP - General 02/04/19 documented as of this encounter
--- OUTSIDE RECORDS SUMMARY | 2023-11-13 17:03 | XMS_ITS | Encounter Summary ---
Author Organization [facility] Address [address] [place] [address] Care Team Providers Care Choirmaster Name Role Phone Meredith Rapp MD Primary Care Provider [phone] Reason for Visit * Reason Comments Follow-up has been doing well on the Humira Encounter Details Date Type Department Care Team (Late st Contact Info) Description 08/06/2017 11:30 EDT Office Visit [facility] Rheumatology & Immunology - [address] [phone] Harsh Malloy, ELBERT 111 [facility], [address] [place] [address] Psoriasis with arthropathy (HCC-CMS) (Primary [...] No 08/06/2017 documented as of this encounter Patient Instructions * Patient Instructions* Harsh Malloy NP - 08/06/2017 11:30 EDT 1. Continue current meds. 2. Given new external lab orders 3. Can use ice or topical hydrocortisone or benadryl for injection site reactions. 4. F/u 6 months documented in this encounter Progress Notes * Marisol Tejeda RN - 08/06/2017 1130 EDT REVIEW OF [...] X Hand/Foot color change in cold X * Harsh Malloy NP - 08/06/2017 1130 EDT [...] Problem List Diagnosis ??? Psoriasis with arthropathy ([facility]) ??? Encounter for long-term (current) use of [...] is present. Appropriate range of motionpresent. Ankle/Foot: No significant tenderness, swelling, effusions, erythema [...] folic acid 1mg po daily. 2. Encounter intermediate teacher meds- up to date with labs. Up to date on pneumonia vaccines Encounter Diagnoses Name Primary? Psoriasis with arthropathy ([facility]) Yes ??? Encounter for long-term (current) use of medications PLAN: 1. Continue current meds. 2. Given new external lab orders 3. Can use ice or topical hydrocortisone or benadryl for injection site reactions. 4. F/u 6 months 1. Psoriasis with arthropathy ([facility]) COMPREHENSIVE METABOLIC PANEL (CMP) HEMAGRAM AND DIFFERENTIAL [...] in the clinic for consultation while the FUNERAL GREETER was seeing patients. Jl Gray MD. 08/06/2017 documented in this encounter Plan of Treatment Upcoming Encounters Date Type Department Care Team (Late st Contact Info) Description 11/24/2023 10:00 EDT Telemedicine [facility] Rheumatology & Immunology - [address] [phone] Harsh Malloy NP 111 [facility], [address] [place] [phone] documented as of this encounter Visit Diagnoses Diagnosis Psoriasis with arthropathy ([facility])- Primary Psoriatic arthropathy Encounter for long-term (current) use of medications Encounter for long-term (current) use of other medications documented in this encounter Discontinued Medications Medication Sig Discontinue Reason Start Date End Da te betamethasone dipropionate 0.05 % lotion Apply topically 2 times daily. Do not apply to face, armpit or groin. Patient Stopped Taking 10/12/2012 08/06/2017 calcipotriene (DOVONEX) 0.005 % cream Apply topically once to twice daily to affected areas. Patient Stopped Taking 10/12/2012 08/06/2017 clobetasol (TEMOVATE) 0.05 % external solution Apply topically twice a day to scalp. Do not apply to face, armpit or groin. Patient Stopped Taking 10/07/2011 08/06/2017 clobetasol (TEMOVATE) 0.05 % ointmentIndications:Og matitis Apply topically to affected area at bedtime Apply nightly to the rash on elbow. Do not apply to face, armpit or groin.. Patient Stopped Taking 10/12/2013 08/06/2017 triamcinolone (KENALOG) 0.1 % creamIndications:Psoria tic arthritis ([facility]),Encounter for long-term (current) use of other medications Apply topically 2 times daily as needed. Patient Stopped Taking 08/06/2017 Salicylic Acid 6-6 % KtSG Topically once daily to affected areas Patient Stopped Taking 10/07/2011 08/06/2017 documented as of this encounter Care Teams Choirmaster Relationship Specialty Start Date End Date Meredith Rapp MD [address] [place] [address] PCP - General 08/09/10 08/04/18 documented as of this encounter
--- OUTSIDE RECORDS SUMMARY | 2023-11-13 17:03 | XMS_ITS | Encounter Summary ---
Author Organization [facility] Address [address] [place] [address] Care Team Providers Care Optometrist Assistant Name Role Phone Meredith Rapp MD Primary Care Provider [phone] Reason for Visit * Reason Onset Date Comments Update 07/01/2016 Encounter Details Date Type Department Care Team (Late st Contact Info) Description 07/01/2016 Telephone [facility] Rheumatology & Immunology - [address] [phone] Etelvina Hernandez MD [address] [place] [address], [address] [place] [address] Update Social History Tobacco Use Types Packs/Day Years [...] No 04/17/2016 documented as of this encounter Miscellaneous Notes * Telephone Encounter - Etelvina Hernandez MD - 07/01/2016 1429 EST Spoke with PCP - they did labs and CXR last week that were normal, patient was afebrile. I left message for patient that if she was better ok to use Enbrel, if not feeling better she should hold Enbrel until infection resolved. * Telephone Encounter - Cheryl Escobedo - 07/01/2016 1052 EST PCP calling about patient. Patient was seen last week for cold sx. Had labs drawn. This is just an FYI, no call back necessary. documented in this encounter Plan of Treatment Upcoming Encounters Date Type Department Care Team (Late st Contact Info) Description 11/24/2023 10:00 EDT Telemedicine [facility] Rheumatology & Immunology - [address] [address] Harsh Malloy NP 111 [facility], [address] [place] [address] documented as of this encounter Visit Diagnoses Not on filedocumented in this encounter Care Teams Optometrist Assistant Relationship Specialty Start Date End Date Meredith Rapp MD [address] [place] [address] PCP - General 08/09/10 08/04/18 documented as of this encounter
--- OUTSIDE RECORDS SUMMARY | 2023-11-13 17:03 | XMS_ITS | Encounter Summary ---
Author Organization [facility] Address [address] [place] [address] Care Team Providers Care Transition Specialist Name Role Phone Meredith Rapp MD Primary Care Provider [phone] Reason for Visit * Reason Onset Date Comments Labs Only 11/25/2016 Encounter Details Date Type Department Care Team (Late st Contact Info) Description 11/25/2016 Orders Only [facility] Rheumatology & Immunology - [address] [phone] Etelvina Hernandez MD [address] [place] [address], [address] [place] [address] Juvenile psoriatic arthritis (CMS-HCC) (HCC-CMS) (Primary Dx); Encounter for long-term (current) [...] as of this encounter Progress Notes * Jacki Watt - 11/25/2016 0954 EDT Standing orders [facility] [phone] documented in this encounter Plan of Treatment Upcoming Encounters Date Type Department Care Team (Late st Contact Info) Description 11/24/2023 10:00 EDT Telemedicine [facility] Rheumatology & Immunology - [address] [phone] Harsh Malloy NP 111 [facility], [address] [place] [phone] documented as of this encounter Visit Diagnoses Diagnosis Juvenile psoriatic arthritis ([facility])- Primary Psoriatic arthropathy Encounter for long-term (current) use of medications Encounter for long-term (current) use of other medications documented in this encounter Care Teams Transition Specialist Relationship Specialty Start Date End Date Meredith Rapp MD [address] [place] [address] PCP - General 08/09/10 08/04/18 documented as of this encounter
--- OUTSIDE RECORDS SUMMARY | 2023-11-13 17:03 | XMS_ITS | Encounter Summary ---
Author Organization [facility] Address [address] [place] [address] Care Team Providers Care Leathersmith Name Role Phone Meredith Rapp MD Primary Care Provider [phone] Reason for Visit * Reason Onset Date Comments Medication Questions 05/20/2017 Humira Encounter Details Date Type Department Care Team (Late st Contact Info) Description 05/20/2017 Telephone [facility] Rheumatology & Immunology - [address] [phone] Harsh Malloy, PORCELAIN ENAMEL REPAIRER [address] [place] [address], [facility] [address] [place] [address] Medication Questions (Humira) Social History Tobacco Use Types Packs/Day [...] encounter Miscellaneous Notes * Telephone Encounter - Nasreen Rankin RN - 05/21/2017 0834 EST Clarified with Pharmacy, Humira 40 mg (1 Pen) every two weeks. * Telephone Encounter - Silke Toro V. - 05/20/2017 1559 EST Reason for Call: Medication Questions (Humira) Summary/Symptoms: RX is missing how many pens to inject for Humira. Please call to thelma Toro 05/20/2017 15:59 documented in this encounter Plan of Treatment Upcoming Encounters Date Type Department Care Team (Late st Contact Info) Description 11/24/2023 10:00 EDT Telemedicine [facility] Rheumatology & Immunology - [facility] [address] [place], [place] [address] Harsh Malloy, PORCELAIN ENAMEL REPAIRER 111 [facility], [address] [place] [address] documented as of this encounter Visit Diagnoses Not on filedocumented in this encounter Care Teams Leathersmith Relationship Specialty Start Date End Date Meredith Rapp MD [address] [place] [address] PCP - General 08/09/10 08/04/18 documented as of this encounter
--- OUTSIDE RECORDS SUMMARY | 2023-11-13 17:03 | XMS_ITS | Encounter Summary ---
Author Organization [facility] Address [address] [place] [address] Care Team Providers Care Drug Room Clerk Name Role Phone Meredith Rapp MD Primary Care Provider [phone] Reason for Visit * Reason Comments Other Encounter Details Date Type Department Care Team (Late st Contact Info) Description 12/25/2017 [facility] Rheumatology & Immunology - [facility] [address] [place], [place] [address] Harsh Malloy, ELBERT 111 [facility], [address] [place] [address] Other Social History Tobacco Use [...] skin every 14 days. 6 Pen 1 12/25/2017 06/25/2018 documented in this encounter Plan of Treatment Upcoming Encounters Date Type Department Care Team (Late st Contact Info) Description 11/24/2023 10:00 EDT Telemedicine [facility] Rheumatology & Immunology - [facility] [address] [place] [address] Harsh Malloy NP 111 [facility], [address] [place] [address] documented as of this encounter Visit Diagnoses Not on filedocumented in this encounter Discontinued Medications Medication Sig Discontinue Reason Start Date End Da te adalimumab (HUMIRA PEN) 40 mg/0.8 mL pen kit Every two weeks. Reorder 05/14/2017 12/25/2017 documented as of this encounter Care Teams Drug Room Clerk Relationship Specialty Start Date End Date Meredith Rapp MD [address] [place] [address] PCP - General 08/09/10 08/04/18 documented as of this encounter
--- OUTSIDE RECORDS SUMMARY | 2023-11-13 17:03 | XMS_ITS | Encounter Summary ---
Author Organization [facility] Address [address] [place] [address] Care Team Providers Care General Machinist Name Role Phone Kayleigh Mallory WILFREDO Primary Care Provider [phone] Reason for Visit * Reason Comments Medication Management doing well Encounter Details Date Type Department Care Team (Late st Contact Info) Description 02/05/2019 11:00 EDT Office Visit [facility] Rheumatology & Immunology - [address] [phone] Harsh Malloy, SLAB STRIPPER [address] [place] [address], [facility] [address] [place] [address] Psoriatic arthropathy ([facility]) (Primary Dx); Need for influenza vaccination; Encounter for long-term (current) use of [...] Sign Reading Time Taken Comments Blood Pressure 128/70 02/05/2019 1101 EDT Pulse 78 02/05/2019 1101 EDT Temperature - - Respiratory Rate - - Oxygen Saturation - - Inhaled Oxygen Concentration - - Weight 73.5 kg (162 lb) 02/05/2019 1101 EDT Height 164.5 cm (5' 4.76) 02/05/2019 1101 EDT Body Mass Index 27.16 02/05/2019 1101 EDT documented in this encounter Functional Status [...] Patient Instructions* Harsh Malloy Aprn, APRN - 02/05/2019 11:00 EDT 1. Continue current meds. 2. Labs every 3-4 months 3. Flu vaccine today 4. Recommend shingrix when available, sign up with pharmacist 5. F/u 6 months Vaccine Information Statement: Shingrix Recombinant Zoster (Shingles) Vaccine, RZV: What you need to know Many Vaccine Information Statements are available in Sammarinese and other languages. See www.immunize.org/vis Hojas de [...] it yourself through the VAERS website at www.vaers.[facility].gov, or by calling . [facility] does not give medical advice. 6. How can I learn more? Ask your health care provider. He or she can give you the vaccine package insert or suggest other sources of information. ??? Call your local or state health department. ??? Contact the Centers for Disease Control and Prevention ([facility]): - Call (9-979-VTN-INFO) or - Visit [facility]???s website at www.cdc.gov/vaccines Vaccine Information Statement Recombinant Zoster Vaccine 06/09/2017 Department of Health and Human Services Centers for Disease Control and Prevention Office Use Only documented in this encounter Progress Notes * Harsh Malloy Aprn, APRN - 02/05/2019 1100 EDT Images from the original note were not included. Patient ID: Nina Boothe is a 48 y.o. y.o. female Subjective: Chief Complaint: Medication Management (doing well ) HPI: Here for follow up of [...] dose of humira since start of URI Changes since last visit doing well Did a spartan race last week Denies??any other joint pains or swelling. ?? [...] PEN) 40 mg/0.4 mL pen injector kit cetirizine (ZYRTEC) 10 mg tablet DOCUSATE [...] is as documented in Prism. Objective: BP 128/70 Pulse 78 Ht 164.5 cm (64.76) Wt 73.5 kg (162 lb) BMI 27.16 kg/m?? PHYSICAL EXAM: ?? General: No acute [...] Status: 0 Pain Tolerance: 1 Global Estimate: 0 - Very Well Score: 1 Interpretation: NearRemission ASSESSMENT: 1. 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 Right hip clicking resolved 2. No psoriasis 3. Patient is currently on biologic therapy. Patient should receive either the PPSV23 or PCV13 vaccine, if indicated based on the CDC recommendations, either at the rheumatology office or PCP office. Up to date on pneumonia 4. Continue labs every 3-4 months 5. Recommend shingrix when available 6. Flu vaccine today Encounter Diagnoses Name Primary? Need for influenza vaccination Yes ??? Psoriatic arthropathy (HCC-CMS) ??? Encounter for long-term (current) use of medications PLAN: 1. Continue current meds. 2. Labs every 3-4 months 3. Flu vaccine today 4. Recommend shingrix when available, sign up with pharmacist 5. F/u 6 months 1. Need for influenza vaccination INFLUENZA VACCINE QUAD (FLULAVAL/FLUARIX/FLUZONE) PF 0.5 ML IM (6MOS+) 2. Psoriatic arthropathy (HCC-CMS) 3. Encounter for long-term (current) use of medications No orders of the defined types were placed in this encounter. Barriers to learning identified: No Patient verbalizes understanding and agrees with plan Yes I was directly supervised by: Dr. Gray . They were present in clinic and available for consult if needed. Harsh Malloy APRN 02/05/2019 11:06 * Estrellita China - 02/05/2019 1100 EDT REVIEW OF SYSTEMS: Yes No [...] no, note change(s) below and update record no documented in this encounter Plan of Treatment Upcoming Encounters Date Type Department Care Team (Late st Contact Info) Description 11/24/2023 10:00 EDT Telemedicine [facility] Rheumatology & Immunology - [facility] [address] [place], [place] [phone] Harsh Malloy NP 111 [facility], [address] [place] [address] documented as of this encounter Visit Diagnoses Diagnosis Psoriatic arthropathy ([facility])- Primary Psoriatic arthropathy Need for influenza vaccination Need for prophylactic vaccination and inoculation against influenza Encounter for long-term (current) use of medications Encounter for long-term (current) use of other medications documented in this encounter Orders Immunization/Injection Count Last Ordered Date First Ordered Date INFLUENZA VACCINE QUAD (FLULAVAL/FLUARIX/FLUZONE) PF 0.5 ML IM (6 MOS+) 1 02/05/2019 documented in this encounter Care Teams General Machinist Relationship Specialty Start Date End Date Kayleigh Mallory FNP [address] [facility] [address] [place] [address] PCP - General 02/04/19 documented as of this encounter
--- OUTSIDE RECORDS SUMMARY | 2023-11-13 17:03 | XMS_ITS | Encounter Summary ---
Author Organization [facility] Address [address] [place] [address] Care Team Providers Care Linux Administrator Name Role Phone Meredith Rapp MD Primary Care Provider [phone] Reason for Visit * Reason Onset Date Comments Medications Refill 04/02/2016 Encounter Details Date Type Department Care Team (Late st Contact Info) Description 04/02/2016 Refill [facility] Rheumatology & Immunology - [address] [phone] Etelvina Hernandez MD [address] [place] [address], [address] [place] [address] Medications Refill Social History Tobacco [...] with breakfast and dinner. 180 Tab 3 04/03/2016 05/14/2017 fluocinonide (LIDEX) 0.05 % ointment Apply daily to rash if needed 1 Tube 3 04/03/2016 05/06/2017 documented in this encounter Miscellaneous Notes * Telephone Encounter - Etelvina Hernandez MD - 04/03/2016 1429 EST Both Rx signed * Telephone Encounter - Maria Esther Aguilar RN - 04/02/2016 6890 ESTFrom: Nina Boothe To: Etelvina Hernandez MD Sent: 04/02/2016 4:57 EST Subject: Medication Renewal Request Original authorizing provider: MD Nina Turner would like a refill of the following medications: naproxen (NAPROSYN) 500 mg tablet [Etelvina Hernandez MD] Preferred pharmacy: [facility] - [address] Comment: The rash is back on [...] [facility] - [address] [address] Harsh Malloy NP [address] [facility], [address] [place] [phone] documented as of this encounter Visit Diagnoses Not on filedocumented in this encounter Discontinued Medications Medication Sig Discontinue Reason Start Date End Da te naproxen (NAPROSYN) 500 mg tablet Take 1 Tab by mouth 2 times daily with breakfast and dinner. Reorder 01/05/2016 04/03/2016 documented as of this encounter Care Teams Linux Administrator Relationship Specialty Start Date End Date Meredith Rapp MD [address] [place] [phone] PCP - General 08/09/10 08/04/18 documented as of this encounter
--- OUTSIDE RECORDS SUMMARY | 2023-11-13 17:03 | XMS_ITS | Encounter Summary ---
Author Organization [facility] Address [address] [place] [address] Care Team Providers Care Restoration Ecologist Name Role Phone Meredith Rapp MD Primary Care Provider [phone] Reason for Visit * Reason Comments Medication Management Encounter Details Date Type Department Care Team (Late st Contact Info) Description 11/12/2016 15:45 EDT Office Visit [facility] Rheumatology & Immunology - [address] [address] Etelvina Hernandez MD [address] [place] [address], [address] [place] [address] Psoriasis with arthropathy (CMS-HCC) (HCC-CMS) (Primary Dx); Pain in toes of both feet; Hammer toes of both feet; Encounter for long-term (current) use of medications [...] Sign Reading Time Taken Comments Blood Pressure 110/76 11/12/2016 1516 EDT Pulse 58 11/12/2016 1516 EDT Temperature - - Respiratory Rate - - Oxygen Saturation - - Inhaled Oxygen Concentration - - Weight 65.3 kg (144 lb) 11/12/2016 1516 EDT Height 164.5 cm (5' 4.75) 11/12/2016 1516 EDT Body Mass Index 24.15 11/12/2016 1516 EDT documented in this encounter Functional Status [...] No 11/12/2016 documented as of this encounter Patient Instructions * Patient Instructions* Etelvina Hernandez MD - 11/12/2016 15:45 EDT Continue Enbrel Increase methotrexate to 8 tabs a week Continue folic acid 1 a day Get labs every 3-4 months Make sure shoes have a deep enough toe box for toes Make sure you get both pneumonia shots (Prevnar 13 and pneumovax 23) every 5 years Get yearly flu vaccine Over age 50 consider shingles vaccine: would have to interrupt Enbrel therapy documented in this encounter Ordered Prescriptions Prescription Sig Dispensed Refills Start Date End Da te methotrexate 2.5 mg tablet Take 9 Tabs by mouth once a week. 108 Tab 3 11/12/2016 05/06/2017 documented in this encounter Progress Notes * Etelvina Hernandez MD - 11/12/2016 1545 EDT Division of Rheumatology and Clinical Immunology Chief Complaint Patient presents with ??? Medication Management HPI: Here for follow up of psoriatic arthritis. At last visit March 2016 was flaring and methotrexate increased to 17.5 mg weekly with contingency of switching Enbrel to Humira. The patient says that her hands are somewhat better but toes have worsened in the last few months with pain mostly at the IP's. They are sore and curl up. Occasionally they swell. Symptoms are not particularly worse in the morning. She denies infection. In August she had abnormal laboratory showing reduced kidney function. She had been sporadically usingnaproxen and I told her to stop the naproxen. She did so and on recheck the labs were normal. Current Outpatient Prescriptions Medication Sig Dispense Refill [...] Inject 50 mg into the skin once aweek. 12 Pen 1 ??? fluocinonide (LIDEX) 0.05 % ointment Apply daily to rash if needed 1 Tube 3 ??? FLUTICASONE PROPIONATE (FLUTICASONE INHL) Inhale as directed daily. ??? folic acid (FOLVITE) 1 mg tablet TAKE 1 TABLET DAILY 90 Tab 2 ??? lisinopril (PRINIVIL, ZESTRIL) 10 mg tablet Take 10 mg by mouth daily ??? loratadine-pseudoephedrine (CLARITIN-D 24 HOUR) 10-240 mg per tablet Take 1 Tab by mouth daily as needed. Reported on 04/17/2016 ??? methotrexate 2.5 mg tablet TAKE 7 TABLETS ONCE A WEEK 91 Tab 1 ??? montelukast (SINGULAIR) 10 mg tablet Take 10 mg by mouth daily ??? Multivitamins with Minerals Tab Take 1 Tab by mouth daily. ??? naproxen (NAPROSYN) 500 mg tablet Take 1 Tab by mouth 2 times daily with breakfast and dinner. (Patient not taking: Reported on 11/12/2016) 180 Tab 3 ??? oxybutynin (DITROPAN) 5 mg tablet Take 5 mg by mouth 2 times daily. ??? Salicylic Acid 6-6 % KtSG Topically once daily to affected areas 1 Bottle 11 ??? triamcinolone (KENALOG) 0.1 % cream Apply topically 2 times daily as needed. No current facility-administered medications for this visit. Allergies include: Asa [aspirin] Past Medical History: Diagnosis Date ??? Abnormal Pap smear in remote past ??? Allergy ??? Arthritis ??? Hypertension ??? Hyperthyroidism history of this, now resolved ??? Migraine ??? Psoriasis Past Surgical History: Procedure Laterality Date ??? KNEE ARTHROSCOPY bilateral knees ??? TUBAL LIGATION ??? TUBAL LIGATION Family History Problem Relation Age of Onset [...] and reviewed by me PHYSICAL EXAMINATION: BP 110/76 Pulse 58 Ht 164.5 cm (64.75) Wt 65.3 kg (144 lb) BMI 24.15 kg/m2 MSK: No synovitis noted in the hands or feet. Minimal hammertoes. Tenderness without swelling over the bilateral toe IP joints. LABS From outside hospital September 26, 2016: CMP normal, WBC 5.86, Hgb 12, HCT 35.7, platelets 278 Diagnosis / Assessment: 1. Psoriasis with arthropathy Most likely causing a flareup in the toes although the physical exam today looks benign. I think wecan try a higher dose of methotrexate but if she progressively worsens may need to consider switching Enbrel to Humira. - Comprehensive Metabolic Panel (CMP); Standing - Hemagram & Differential; Standing 2. Pain in toes of both feet Likely related to mild psoriatic arthritis 3. Hammer toes of both feet If her toes are rubbing on shoes this might also produce some pain. However the deformity is very minimal. 4. Encounter for long-term (current) use of medications - Comprehensive Metabolic Panel (CMP); Standing - Hemagram & Differential; Standing Recommendations/Evaluation: Patient Instructions Continue Enbrel Increase methotrexate to 8 tabs a week Continue folic acid 1 a day Get labs every 3-4 months Make sure shoes have a deep enough toe box for toes Make sure you get both pneumonia shots (Prevnar 13 and pneumovax 23) every 5 years Get yearly flu vaccine Over age 50 consider shingles vaccine: would have to interrupt Enbrel therapy Return in about 6 months (around 05/15/2017).with [facility] and 6 months after with Barriers to learning identified: No Patient verbalizes understanding and agrees with plan Yes Etelvina Hernandez MD 11/12/2016 15:21 * Jacki Watt - 11/12/2016 8435 EDT REVIEW OF SYSTEMS: Yes No Yes [...] Info) Description 11/24/2023 10:00 EDT Telemedicine [facility] Rheumatology & [place] [address] Harsh Malloy, CHEST PAIN COORDINATOR [address] [facility], [address] [place] [address] documented as of this encounter Visit Diagnoses Diagnosis Psoriasis with arthropathy ([facility]-CMS)- Primary Psoriatic arthropathy Pain in toes of both feet Hammer toes of both feet Encounter for long-term (current) use of medications Encounter for long-term (current) use of other medications documented in this encounter Discontinued Medications Medication Sig Discontinue Reason Start Date End Da te methotrexate 2.5 mg tablet TAKE 7 TABLETS ONCE A WEEK Reorder 10/18/2016 11/12/2016 documented as of this encounter Care Teams Restoration Ecologist Relationship Specialty Start Date End Date Meredith Rapp MD [address] [place] [address] PCP - General 08/09/10 08/04/18 documented as of this encounter
--- OUTSIDE RECORDS SUMMARY | 2023-11-13 17:04 | XMS_ITS | Encounter Summary ---
Author Organization [facility] Address [address] [place] [address] Care Team Providers Care Teacher Kindergarten Name Role Phone Meredith Rapp MD Primary Care Provider [phone] Reason for Visit * Reason Onset Date Comments Results 10/30/2010 Encounter Details Date Type Department Care Team (Late st Contact Info) Description 10/30/2010 Telephone [facility] Rheumatology & Immunology - [address] [phone] Etelvina Hernandez MD [address] [place] [address], [address] [place] [address] Results Social History Tobacco Use Types Packs/Day Years Used Date Smoking Tobacco: Never Alcohol Use Standard Drinks/Week Comments No 0 (1 standard drink = 0.6 oz pur e alcohol) Sex and Gender Information Value Date Recorded Sex Assigned at Female 06/29/2019 10:58 EST Gender Identity Female 06/29/2019 10:58 EST Sexual Orientation Straight 06/29/2019 10 :58 EST documented as of this encounter Miscellaneous Notes * Telephone Encounter - Etelvina Hernandez MD - 10/30/2010 1754 EDT Recent labs and CXR are normal. Message left on patient's home machine. documented in this encounter Plan of Treatment Upcoming Encounters Date Type Department Care Team (Late st Contact Info) Description 11/24/2023 10:00 EDT Telemedicine [facility] Rheumatology & Immunology - [facility] [address] [place], [place] [address] Harsh Malloy, PREPARATION ROOM WORKER 111 [facility], [address] [place] [phone] documented as of this encounter Visit Diagnoses Not on filedocumented in this encounter Care Teams Teacher Kindergarten Relationship Specialty Start Date End Date Meredith Rapp MD [address] [place] [address] PCP - General 08/09/10 08/04/18 documented as of this encounter
--- OUTSIDE RECORDS SUMMARY | 2023-11-13 17:04 | XMS_ITS | Encounter Summary ---
Author Organization [facility] Address [address] [place] [address] Care Team Providers Care Supervisor [employer] Name Role Phone Meredith Rapp MD Primary Care Provider [phone] Reason for Referral * Consult (Routine/Next Available) - Closed Specialty Diagnoses / Procedures Referred By Twyla love Referred To Contact Dermatology Diagnoses Psoriatic arthritis ([facility]) Rufina Mishra MD [address] [place] [address] [place] [address] [address] [place] [id number] Referral ID Status Reason Start Date Expiration Date V isits Requested Visits Authorized [id number] Closed Specialty Services Required 07/30/2011 1 1 Question Answer Reason for Request: 40 yo woman with psoriasis and psoriatic arthritis, rash not responding to treatment with MTX Reason for Visit * Reason Comments Joint Pain pain improving in bustos nds and feet, 4 month F/U, pt with psoriatic arthritis Rash psoriasis not improv ing per pt Joint Swelling right MCPs Encounter Details Date Type Department Care Team ([facility] st Contact Info) Description 07/30/2011 15:15 EDT Office Visit [facility] Rheumatology & Immunology - [address] [phone] Crispin Phillips MD [address] [facility], [address] [place] [phone] Psoriatic arthritis (CMS-HCC) (HCC-CMS) (Primary Dx); Other psoriasis Social History Tobacco Use Types Packs/Day Years [...] Reading Time Taken Comments Blood Pressure 122/78 07/30/2011 1455 EDT Pulse 70 07/30/2011 1455 EDT Temperature - - Respiratory Rate 16 07/30/2011 1455 EDT Oxygen Saturation - - Inhaled Oxygen Concentration - - Weight 78.9 kg (174 lb) 07/30/2011 1455 EDT Height 167.6 cm (5' 6) 07/30/2011 1455 EDT Body Mass Index 28.08 07/30/2011 1455 EDT documented in this encounter Patient Instructions * Patient Instructions* Rufina Mishra MD - 07/30/2011 15:16 EDT 1. Have your labs drawn now and every 2 months. 2. See dermatology about your rash. 3. Try Dovonex solution/cream for your rash. 4. Increase methotrexate to 9 tablets every week. documented in this encounter Ordered Prescriptions Prescription Sig Dispensed Refills Start Date End Da te methotrexate 2.5 mg tablet Take 9 Tabs by mouth once a week. 108 Tab 3 07/30/2011 10/07/2011 calcipotriene (DOVONOX) 0.005 % cream Apply to rash on elbows and abdomen daily 1 Tube 1 07/30/2011 10/07/2011 Calcipotriene 0.005 % Soln Apply to scalp daily. 1 Bottle 1 07/30/2011 10/07/2011 documented in this encounter Progress Notes * Rufina Mishra MD - 07/30/2011 1524 EDT Images from the original note were not included. Division of Rheumatology and Clinical Immunology Chief Complaint Patient presents with ??? Joint Pain pain improving in hands and feet, 4 month F/U, pt with psoriatic arthritis ??? Rash psoriasis not improving per pt ??? Joint Swelling right MCPs HPI: Nina Boothe is a 40 y.o. woman with psoriatic arthritis here for follow up. At her last visit inDec methotrexate dose was increased to 8 tabs (2.5 mg each) a week for persisting symptoms, especially pain in the hands and feet. With the increased dose these symptoms are much improved. She notes she recently took a long walk without significant foot pain, something she could not have done 6 months ago. She has no morning stiffness, which had also been a prominent symptom in the past. She feels that although arthritis control is better she is still, not quite there yet. Her most bothersomesymptom is persisting pain in the PIP joints of the right hand, worse with prolonged use such as using the computer at work. She is right hand dominant. PRN Tylenol and NSAIDs help minimally. Her psoriatic rash has also continued, unchanged by increased methotrexate dosing. Current Outpatient Prescriptions Medication Sig Dispense Refill ??? acetaminophen (TYLENOL) 500 mg tablet Take 1,000 mg by mouth every 6 hours as needed. ??? methotrexate 2.5 mg tablet Take 8 Tabs by mouth once a week. 96 Tab 3 ??? folic acid (FOLVITE) 1 [...] needed. Allergies Allergen Reactions ??? Asa (Aspirin) Social History: Nonsmoker. REVIEW OF SYSTEMS: Yes No Yes No [...] x Hair Loss x PHYSICAL EXAMINATION: Constitutional: healthy appearing woman in no acute distress BP 122/78 Pulse 70 Resp 16 Ht 167.6 cm (66) Wt 78.926 kg (174 lb) BMI 28.08 kg/m2 EYES: conjunctivae clear. PERRL, EOM's intact. RESPIRATORY: clear / equal BS; no adventitious sounds bilaterally CARDIOVASCULAR: RRR. Prominent P2. No murmurs, clicks or gallops. No peripheral edema. SKIN: Psoriatic plaques posterior scalp, abdomen surrounding umbilicus, and bilateral elbows. MUSCULOSKELETAL: Inflammation R 4th and 5th PIP joints, 2nd MCP. Tenderness on exam of right MTPs. LABS Last drawn 03/2011 OSH (scanned). Reviewed and unremarkable. Due for repeat. Diagnosis / Assessment: 40 y.o. woman with psoriatic arthritis, doing better on increased dose of methotrexate but still not ideally controlled. Will increase dose to 9 tabs (22.5 mg) methotrexate a week. She had tried splitting doses in the past but often forgot to take the second dose. Unfortunately her rash has not improved on this medication, and she may need the addition of a biologic agent. Will refer to dermatology for guidance. In the meantime will trial Vitamin D topical treatment, with the hope that this will provide some benefit. Recommendations/Evaluation: 1. Overdue for labs, she will have these drawn JOSIAH. 2. Continue methotrexate, with dose increased to 9 tabs weekly in a single dose. 3. Referral to dermatology for psoriatic rash. 4. Trial of Dovonex solution (to scalp) and cream (to elbows and abdomen), prescriptions provided. 5. Follow up with Cecilia Bustos in 2 months, and with Dr. Phillips in 4 months. Barriers to learning identified: No Patient verbalizes understanding and agrees with plan Yes This patient was seen and discussed with Dr. Phillips. RUFINA MISHRA MD 07/30/2011 15:24 Attestation statement: I saw and examined the patient with the resident/fellow. I agree with the findings and plan of care documented in the resident's/fellow's note. CRISPIN PHILLIPS MD documented in this encounter Plan of Treatment Upcoming Encounters Date Type Department Care Team (Late st Contact Info) Description 11/24/2023 10:00 EDT Telemedicine [facility] Rheumatology & Immunology - [facility] [address] [place], [place] [address] Harsh Malloy NP [address] [facility], [address] [place] [phone] Scheduled Referrals Name Type Priority Associated Diagnoses Order Schedule AMB CONSULT DERMATOLOGY Outpatient Referral Routine Psoriatic arthritis ([facility]) ([facility]) Ordered: 07/30/2011 documented as of this encounter Visit Diagnoses Diagnosis Psoriatic arthritis ([facility])- Primary Psoriatic arthropathy Other psoriasis documented in this encounter Discontinued Medications Medication Sig Discontinue Reason Start Date End Da te acetaminophen (TYLENOL) 500 mg tabletIndications:Psoriat ic arthritis ([facility]),Encounter for long-term (current) use of other medications Take 1,000 mg by mouth every 6 hours. Dose adjustment 07/30/2011 methotrexate 2.5 mg tablet Take 8 Tabs by mouth once a week. Reorder 03/29/2011 07/30/2011 documented as of this encounter Historical Medications * This list may reflect changes made after this encounter. Medication Sig Dispensed Refills Start Date End Date acetaminophen (TYLENOL) 500 mg tablet Take 2 Tablets by mouth every 6 hours as needed. added in this encounter Care Teams Supervisor Brew House Relationship Specialty Start Date End Date Meredith Rapp MD [address] [place] [address] PCP - General 08/09/10 08/04/18 documented as of this encounter
--- OUTSIDE RECORDS SUMMARY | 2023-11-13 17:04 | XMS_ITS | Encounter Summary ---
Author Organization [facility] Address [address] [place] [address] Care Team Providers Care Toe Former Name Role Phone Meredith Rapp MD Primary Care Provider [phone] Reason for Visit * Reason Comments Joint Pain Right hand is still giving her trouble on and off. Swelling, stiffness and soreness. Encounter Details Date Type Department Care Team (Late st Contact Info) Description 02/19/2012 15:30 EDT Office Visit [facility] Rheumatology & Immunology - [address] [phone] Crispin Phillips MD [address] [facility], [address] [place] [address] Psoriatic arthritis ([facility] ([facility]); Psoriasis; Encounter for long-term (current) use of other medications Social History Tobacco Use Types Packs/Day [...] Sign Reading Time Taken Comments Blood Pressure 134/76 02/19/2012 1520 EDT Pulse 76 02/19/2012 1520 EDT Temperature - - Respiratory Rate 16 02/19/2012 1520 EDT Oxygen Saturation - - Inhaled Oxygen Concentration - - Weight 77.6 kg (171 lb) 02/19/2012 1520 EDT Height 165.1 cm (5' 5) 02/19/2012 1520 EDT Body Mass Index 28.46 02/19/2012 1520 EDT documented in this encounter Patient Instructions * Patient Instructions* Crispin Phillips MD - 02/19/2012 16:09 EDT See if Dovonex (calcipotriene) is cheaper now Try naproxen at night (food first) Continue regular labs every 3 months at least documented in this encounter Ordered Prescriptions Prescription Sig Dispensed Refills Start Date End Da te methotrexate 2.5 mg tablet Take 9 Tabs by mouth once a week. 36 Tab 11 02/19/2012 10/12/2012 naproxen (NAPROSYN) 500 mg tabletIndications:Psoriati c arthritis ([facility]),Encounter for long-term (current) use of other medications Take 1 Tab by mouth 2 times daily as needed for Pain. Take with food first 60 Tab 11 02/19/2012 07/13/2013 documented in this encounter Progress Notes * Crispin Phillips MD - 02/19/2012 1523 EDT Images from the original note were not included. Division of Rheumatology and Clinical Immunology Chief Complaint Patient presents with ??? Joint Pain Right hand is still giving her trouble on and off. Swelling, stiffness and soreness. HPI: Patient here for followup of psoriatic arthritis. She is overall doing fairly well. She has arthritis in the right hand that comes and goes, is a little bit more than used to be; also a little discomfort in the left foot. The arthritis in the hand does bother her when she is combing her hair. She has only been using naproxen once a week. Her psoriasis is on her scalp and to some extent on her elbow. She has not used Dovonex because it was quite expensive. Current Outpatient Prescriptions Medication Sig Dispense Refill ??? loratadine-pseudoephedrine (CLARITIN-D 24 HOUR) 10-240 mg per tablet Take 1 Tab by mouth daily as needed. ??? Multivitamins with Minerals Tab Take 1 Tab by mouth daily. ??? naproxen (NAPROSYN) 500 mg tablet Take 1 Tab by mouth 2 times daily as needed for Pain. Take with food first 60 Tab 11 ??? methotrexate 2.5 mg tablet Take 9 Tabs by mouth once a week. 36 Tab 11 ??? folic acid (FOLVITE) [...] x Weight change x If yes, duration Brief Gain or loss? Numbness/tingling x Eye discomfort [...] x Hair Loss x PHYSICAL EXAMINATION: BP 134/76 Pulse 76 Resp 16 Ht 165.1 cm (65) Wt 77.565 kg (171 lb) BMI 28.46 kg/m2 Skin: psoriatic patch occiput LABS From outside hospital January 27 WBC 9.52, Hgb 14.1, HCT 40.4, platelets 2 80,000, creatinine 1.0, total protein 7.1, alkaline phosphatase 77, albumin 4, AST 27, ALT 36 No visits with results within 3 Month(s) from this visit. Latest known visit with results is: Phlebotomy Only on 07/30/2011 Component Date Value ??? Albumin 07/30/2011 4.3 ??? Total Alkaline Phosphata* 07/30/2011 78 ??? ALT 07/30/2011 28 ??? AST 07/30/2011 23 ??? Creatinine 07/30/2011 0.75 ? ? GFR, Calculated 07/30/2011 >60 ??? WBC 07/30/2011 6.70 ??? RBC 07/30/2011 4.57 ??? Hemoglobin 07/30/2011 13.5 ??? HCT 07/30/2011 39.8 ??? MCV 07/30/2011 87 ??? MCH 07/30/2011 29.6 ??? MCHC 07/30/2011 34.0 ??? PLT 07/30/2011 327* ??? RDW-CV 07/30/2011 16.1* ??? Neutrophils 07/30/2011 64.5 ??? Lymphocytes 07/30/2011 22.2 ??? Monocytes 07/30/2011 10.6 ??? Eosinophils 07/30/2011 2.2 ??? Basophils 07/30/2011 0.5 ??? ABS Neutrophils 07/30/2011 4.32 ??? ABS Lymphs 07/30/2011 1.49 ??? ABS Monocytes 07/30/2011 0.71 ??? ABS Eosinophils 07/30/2011 0.15 ??? ABS Basophils 07/30/2011 0.03 ??? Type of Diff: 07/30/2011 Automated Diagnosis / Assessment: Psoriatic arthritis, arthritis somewhat active in her right hand, and left foot. It is not severe however. Psoriasis rash, active on her scalp Recommendations/Evaluation: I believe Dovonex is now generic. The patient will look into whether she can afford to try Dovonex solution to her scalp She will try naproxen 500 mg at night on a scheduled basis to see if this improves her morning symptoms. Contingency would be to raise her methotrexate to 25 mg weekly if naproxen not helpful. In the meantime, she will remain on the same methotrexate, and folic acid and continue with regularlaboratories every 3 months, at least Followup in 6 months Barriers to learning identified: No Patient verbalizes understanding and agrees with plan Yes CRISPIN PHILLIPS MD 02/19/2012 17:48 documented in this encounter Plan of Treatment Upcoming Encounters Date Type Department Care Team (Late st Contact Info) Description 11/24/2023 10:00 EDT Telemedicine [facility] Rheumatology & Immunology - [address] [phone] Harsh Malloy NP [address] [place] [address], [address] [place] [phone] documented as of this encounter Visit Diagnoses Diagnosis Psoriatic arthritis ([facility]) Psoriatic arthropathy Psoriasis Other psoriasis Encounter for long-term (current) use of other medications documented in this encounter Discontinued Medications Medication Sig Discontinue Reason Start Date End Da te diphenhydrAMINE (BENADRYL) 25 mg capsuleIndications:Psor iatic arthritis ([facility]),Encounter for long-term (current) use of other medications Take 25 mg by mouth every 4 hours as needed. Patient Stopped Taking 10/24/2010 02/19/2012 naproxen (NAPROSYN) 500 mg tabletIndications:Psori atic arthritis ([facility]),Encounter for long-term (current) use of other medications Take 500 mg by mouth as needed. Reorder 12/28/2010 02/19/2012 methotrexate 2.5 mg tablet Take 9 Tabs by mouth once a week. Reorder 10/09/2011 02/19/2012 documented as of this encounter Historical Medications * This list may reflect changes made after this encounter. Medication Sig Dispensed Refills Start Date End Date Multivitamins with Minerals Tab Take 1 Tablet by mouth daily. loratadine-pseudoephedrin e (CLARITIN-D 24-HOUR) 10-240 mg per tablet Take 1 Tablet by mouth daily as needed. Reported on 04/17/2016 added in this encounter Care Teams Toe Former Relationship Specialty Start Date End Date Meredith Rapp MD [address] [place] [address] PCP - General 08/09/10 08/04/18 documented as of this encounter
--- OUTSIDE RECORDS SUMMARY | 2023-11-13 17:04 | XMS_ITS | Encounter Summary ---
Author Organization [facility] Address [address] [place] [address] Care Team Providers Care Apple Peeler Operator Name Role Phone Meredith Rapp MD Primary Care Provider [phone] Reason for Visit * Reason Onset Date Comments Medications Refill 10/09/2011 Encounter Details Date Type Department Care Team (Late st Contact Info) Description 10/09/2011 Refill [facility] Rheumatology & Immunology [address] [phone] Talisha Loja RN Medications Refill Social History Tobacco Use [...] :58 EST documented as of this encounter Ordered Prescriptions Prescription Sig Dispensed Refills Start Date End Da te methotrexate 2.5 mg tablet Take 9 Tabs by mouth once a week. 36 Tab 5 10/09/2011 02/19/2012 documented in this encounter Plan of Treatment Upcoming Encounters Date Type Department Care Team (Late st Contact Info) Description 11/24/2023 10:00 EDT Telemedicine [facility] Rheumatology Immunology [address] [phone] Harsh Malloy, ELBERT [address] [facility], [address] [place] [address] documented as of this encounter Visit Diagnoses Not on filedocumented in this encounter Discontinued Medications Medication Sig Discontinue Reason Start Date End Da te methotrexate 2.5 mg tablet Take 9 Tabs by mouth once a week. Reorder 10/07/2011 10/09/2011 documented as of this encounter Care Teams Apple Peeler Operator Relationship Specialty Start Date End Date Meredith Rapp MD [address] [place] [address] PCP - General 08/09/10 08/04/18 documented as of this encounter
--- OUTSIDE RECORDS SUMMARY | 2023-11-13 17:04 | XMS_ITS | Encounter Summary ---
Author Organization [facility] Address [address] [place] [address] Care Team Providers Care Jack Prizer Name Role Phone Meredith Rapp MD Primary Care Provider [phone] Reason for Visit * Reason Onset Date Comments Medication Management 10/07/2011 BEBETO PISANO [employer] CALLED AND HAD A QUESTION ABOUT A THE PRESCRIPTION SALICYLIC ACID PRESCRIBED. PLEASE CALL. Encounter Details Date Type Department Care Team ([facility] st Contact Info) Description 10/07/2011 Telephone [facility] Dermatology 3rd Floor [facility] [address], [place] [phone] Cat Dodson MD [address] [place] [address] Medication Management (BEBETO PISANO [employer] CALLED AND HAD A QUESTION ABOUT A THE PRESCRIPTION SALICYLIC ACID PRESCRIBED. PLEASE CALL.) Social History Tobacco Use [...] encounter Miscellaneous Notes * Telephone Encounter - Verónica Rincon - 10/08/2011 1047 EDT Salicylic Acid comes as 6% lotion or 6% cream. Please advise. documented in this encounter Plan of Treatment Upcoming Encounters Date Type Department Care Team (Late st Contact Info) Description 11/24/2023 10:00 EDT Telemedicine [facility] Rheumatology & Immunology - [address] [phone] Harsh Malloy, CRAYON SAWYER [address] [facility], [address] [place] [phone] documented as of this encounter Visit Diagnoses Not on filedocumented in this encounter Care Teams Jack Prizer Relationship Specialty Start Date End Date Meredith Rapp MD [address] [place] [address] PCP - General 08/09/10 08/04/18 documented as of this encounter
--- OUTSIDE RECORDS SUMMARY | 2023-11-13 17:04 | XMS_ITS | Encounter Summary ---
Author Organization [facility] Address [address] [place] [address] Care Team Providers Care Desk Sergeant Name Role Phone Meredith Rapp MD Primary Care Provider [phone] Encounter Details Date Type Department Care Team (Late st Contact Info) Description 12/04/2012 Results Only [facility] Laboratory Services - [facility] ([facility]) [address] [place] [address] Meredith Rapp MD [address] [place] [phone] Social History Tobacco Use Types Packs/Day Years Used Date Smoking Tobacco: Never Smokeless Tobacco: Never Alcohol Use Standard Drinks/Week Comments No 0 (1 standard drink = 0.6 oz pur e alcohol) Sex and Gender Information Value Date Recorded Sex Assigned at Female 06/29/2019 10:58 EST Gender Identity Female 06/29/2019 10:58 EST Sexual Orientation Straight 06/29/2019 10 :58 EST documented as of this encounter Plan of Treatment Upcoming Encounters Date Type Department Care Team (Late st Contact Info) Description 11/24/2023 10:00 EDT Telemedicine [facility] Rheumatology & Immunology - [facility] [address] [place], [place] [address] Harsh Malloy NP [address] [facility], [address] [place] [address] [phone] (work) documented as of this encounter Procedures Procedure Name Priority Date/Time Associated Diagnosis Comments PAP TEST- RESULT ONLY Routine 12/04/2012 0:00 EDT documented in this encounter Results * PAP TEST- RESULT ONLY (12/04/2012 0:00 EDT) Pathology Report: CYTOPATHOLOGY REPORT Reports generated via electronic interface contain original data; however they are lacking the format of the original report. Caution should be taken when reading/interpreti ng unformatted reports. Name: ? REILLY HUI ? Accession #: ? [id number] ? : ? 1970 (Age: 42) ??F ?Collect Date: ? 12/04/2012 ? Location: ? [facility] ? Receive Date: ? 12/07/2012 ? Provider: MEREDITH RAPP MD Copy to: ? Final Report SPECIMEN ADEQUACY ? Satisfactory for Evaluation - transformation zone component present GENERAL CATEGORIZATION ? Negative for Intraepithelial Lesion or Malignancy INTERPRETATION ? Reactive cellular changes associated with inflammation present (includes repair). Last Menstrual Period: 11/13/12 Specimen/Source: ??Pap Test, Endocervix, ThinPrep Imaging System with manual evaluation Document reviewed and electronically signed by: ? GRACIELA CARCAMO MD [facility] ? Report ??Date: 12/15/2012 17:48 HPV with Pap Test ? Date Ordered: ? 12/15/2012 ? Status: ?? Signed Out ?Date Complete: ? 12/17/2012 ? By: ??System Interface ? Date Reported: ? 12/17/2012 ? Interpretation RESULT: Negative for HPV. No E6 or E7 mRNA is detected from HPV types 16,18,31,33,35, 39,45,51,52,56,58, 59,66, and 68 by hand endband cutter mediated amplification. Comments Document reviewed and electronically signed by: ? System Interface ? Report date: 12/17/2012 By the signature above, the attending physician certifies that he/she has personally conducted a gross and/or microscopic examination of the described specimens and rendered or confirmed the above diagnosis. End of Report [facility] 12/04/2012 12/07/2012 Meredith Rapp MD PATHOLOGY ORDERABLES Performing Organization Address City/State/[facility] Co de Phone Number [facility] [address] [place] [address] documented in this encounter Visit Diagnoses Not on filedocumented in this encounter Care Teams Desk Sergeant Relationship Specialty Start Date End Date Meredith Rapp MD [address] [place] [address] PCP - General 08/09/10 08/04/18 documented as of this encounter
--- OUTSIDE RECORDS SUMMARY | 2023-11-13 17:04 | XMS_ITS | Encounter Summary ---
Author Organization [facility] Address [address] [place] [address] Care Team Providers Care Wood Heel Attacher Name Role Phone Meredith Rapp MD Primary Care Provider [phone] Reason for Visit * Reason Onset Date Comments Medications Refill 09/16/2013 Encounter Details Date Type Department Care Team (Late st Contact Info) Description 09/16/2013 Telephone [facility] Rheumatology & Immunology - [address] [phone] Tabatha Degroot PAAltafC [address] [place], [place] [phone] Medications Refill Social History Tobacco Use Types [...] End Da te methotrexate 2.5 mg tablet take 5 tablets by mouth every week. 20 Tab 3 09/17/2013 01/12/2014 documented in this encounter Miscellaneous Notes * Telephone Encounter - Tabatha Pinedo PA - 09/21/2013 0923 EDT I was asked to co-sign a Rx for Methotrexate refills but I don't see any recent labs on file (last done Mar 2013). She should have labs checked every 2-3 months. Please check on this. Needs to have updated labs on file before further refills. Thanks. * Telephone Encounter - Talisha Loja RN - 09/16/2013 7134 EDTFrom: Nina Boothe To: Tabatha Pinedo PA Sent: 09/16/2013 14:22 EDT Subject: Medication Renewal Request Original authorizing provider: MICHAEL Deras would like a refill of the following medications: methotrexate 2.5 mg tablet [MICHAEL Deras] Preferred pharmacy: [facility]-[address] [place] [address] Comment: Please call in to my pharmacy- [facility] in [place], [place] Thank you- Iris documented in this encounter Plan of Treatment Upcoming Encounters Date Type Department Care Team (Late st Contact Info) Description 11/24/2023 10:00 EDT Telemedicine [facility] Rheumatology & Immunology - [facility] [address] [place], [place] [address] Harsh Malloy NP [address] [facility], [address] [place] [phone] documented as of this encounter Visit Diagnoses Not on filedocumented in this encounter Discontinued Medications Medication Sig Discontinue Reason Start Date End Da te methotrexate 2.5 mg tablet take 5 tablets by mouth every week Reorder 07/13/2013 09/16/2013 documented as of this encounter Care Teams Wood Heel Attacher Relationship Specialty Start Date End Date Meredith Rapp MD [address] [place] [address] PCP - General 08/09/10 08/04/18 documented as of this encounter
--- OUTSIDE RECORDS SUMMARY | 2023-11-13 17:04 | XMS_ITS | Encounter Summary ---
Author Organization [facility] Address [address] [place] [address] Care Team Providers Care Cafeteria Food Server Name Role Phone Meredith Rapp MD Primary Care Provider [phone] Reason for Visit * Reason Onset Date Comments Medications Refill 07/14/2015 Encounter Details Date Type Department Care Team (Late st Contact Info) Description 07/14/2015 Refill [facility] Rheumatology & Immunology - [facility] [address] [place], [place] [phone] Marisol Tejeda RN Medications Refill Social History Tobacco Use [...] visiting a doctor's office or shopping? No 04/18/2015 Cognitive Status Response Date of Assessm ent Because of a physical, menta l, or emotional condition, does this person have serious difficulty concentrating, remembering, or making decisions? No 04/18/2015 documented as of this encounter Ordered Prescriptions Prescription Sig Dispensed Refills Start Date End Da te methotrexate 2.5 mg tablet Take 6 Tabs by mouth once a week. 78 Tab 1 07/24/2015 11/06/2015 documented in this encounter Plan of Treatment Upcoming Encounters Date Type Department Care Team (Late st Contact Info) Description 11/24/2023 10:00 EDT Telemedicine [facility] Rheumatology & Immunology - [facility] [address] [place], [place] [address] Harsh Malloy, CSW 111 [facility], [address] [place] [phone] documented as of this encounter Visit Diagnoses Not on filedocumented in this encounter Discontinued Medications Medication Sig Discontinue Reason Start Date End Da te methotrexate 2.5 mg tablet Take 6 Tabs by mouth once a week Reorder 04/18/2015 07/14/2015 documented as of this encounter Care Teams Cafeteria Food Server Relationship Specialty Start Date End Date Meredith Rapp MD [address] [place] [address] PCP - General 08/09/10 08/04/18 documented as of this encounter
--- OUTSIDE RECORDS SUMMARY | 2023-11-13 17:04 | XMS_ITS | Encounter Summary ---
Author Organization [facility] Address [address] [place] [address] Care Team Providers Care Electrophysiology Scientist Name Role Phone Meredith Rapp MD Primary Care Provider [phone] Reason for Visit * Reason Onset Date Comments Prior Auth, Medication 01/31/2015 Encounter Details Date Type Department Care Team (Late st Contact Info) Description 01/31/[address] [facility] Rheumatology & Immunology - [address] [phone] Etelvina Hernandez MD [address] [place] [address], [address] [place] [address] Prior Auth, Medication Social History Tobacco Use [...] visiting a doctor's office or shopping? No 10/21/2014 Cognitive Status Response Date of Assessm ent Because of a physical, menta l, or emotional condition, does this person have serious difficulty concentrating, remembering, or making decisions? No 10/21/2014 documented as of this encounter Miscellaneous Notes * Telephone Encounter - China Penn RN - 01/31/2015 1617 EDT Left message for pt R/T prior auth and need to contact [facility] and update them prior to their re-authorizing Enbrel. * Telephone Encounter - Juani Meek - 01/31/2015 1226 EDT Rep from [facility] called today: Enbrel 50 MG will not be re- authorized until patient contacts them to update her information. documented in this encounter Plan of Treatment Upcoming Encounters Date Type Department Care Team (Late st Contact Info) Description 11/24/2023 10:00 EDT Telemedicine [facility] Rheumatology & Immunology - [facility] [address] [place], [place] [address] Harsh Malloy, RESORT DESK CLERK 111 [facility], [address] [place] [phone] documented as of this encounter Visit Diagnoses Not on filedocumented in this encounter Care Teams Electrophysiology Scientist Relationship Specialty Start Date End Date Meredith Rapp MD [address] [place] [address] PCP - General 08/09/10 08/04/18 documented as of this encounter
--- OUTSIDE RECORDS SUMMARY | 2023-11-13 17:04 | XMS_ITS | Encounter Summary ---
Author Organization [facility] Address [address] [place] [address] Care Team Providers Care Operations Forester Name Role Phone Meredith Rapp MD Primary Care Provider [phone] Reason for Visit * Reason Comments Other Encounter Details Date Type Department Care Team (Late st Contact Info) Description 07/13/2013 Refill [facility] Rheumatology & Immunology - [address] [phone] Etelvina Hernandez MD [address] [place] [address], [address] [place] [address] Other Social History Tobacco Use [...] if needed for pain 180 Tab 1 07/13/2013 01/05/2016 documented in this encounter Plan of Treatment Upcoming Encounters Date Type Department Care Team (Late st Contact Info) Description 11/24/2023 10:00 EDT Telemedicine [facility] Rheumatology & Immunology - [facility] [address] [place], [place] [address] Harsh Malloy, IRON CUTTER 111 [facility], [address] [place] [address] documented as of this encounter Visit Diagnoses Not on filedocumented in this encounter Discontinued Medications Medication Sig Discontinue Reason Start Date End Da te naproxen (NAPROSYN) 500 mg tabletIndications:Psoriat ic arthritis ([facility]),Encounter for long-term (current) use of other medications Take 1 Tab by mouth 2 times daily as needed for Pain. Take with food first Reorder 02/19/2012 07/13/2013 documented as of this encounter Care Teams Operations Forester Relationship Specialty Start Date End Date Meredith Rapp MD [address] [place] [address] PCP - General 08/09/10 08/04/18 documented as of this encounter
--- OUTSIDE RECORDS SUMMARY | 2023-11-13 17:04 | XMS_ITS | Encounter Summary ---
Author Organization [facility] Address [address] [place] [address] Care Team Providers Care Dredging Inspector Name Role Phone Meredith Rapp MD Primary Care Provider [phone] Reason for Visit * Reason Comments Other Encounter Details Date Type Department Care Team (Late st Contact Info) Description 01/07/2014 Refill [facility] Rheumatology & Immunology - [address] [address] Tabatha Degroot PA-C [address] [place] [address] Other Social History Tobacco Use [...] encounter Miscellaneous Notes * Telephone Encounter - Sylvie Wynn RN - 01/10/2014 1252 EDT Pt called back to inform us she had labs completed this morning. Called [facility]; Galen will fax labs as soon as they result to [phone] * Telephone Encounter - Sylvie Wynn RN - 01/10/2014 0932 EDT Pt has labs done at [facility]; last labs 09/16/13. Standing external orders available until 01/12/14. documented in this encounter Plan of Treatment Upcoming Encounters Date Type Department Care Team (Late st Contact Info) Description 11/24/2023 10:00 EDT Telemedicine [facility] Rheumatology & Immunology - [facility] [address], [place] [address] Harsh Malloy, SNOWBOARDING INSTRUCTOR 111 [facility], [address] [place] [address] documented as of this encounter Visit Diagnoses Not on filedocumented in this encounter Care Teams Dredging Inspector Relationship Specialty Start Date End Date Meredith Rapp MD [address] [place] [address] PCP - General 08/09/10 08/04/18 documented as of this encounter
--- OUTSIDE RECORDS SUMMARY | 2023-11-13 17:04 | XMS_ITS | Encounter Summary ---
Author Organization [facility] Address [address] [place] [address] Care Team Providers Care Acid Retort Operator Name Role Phone Meredith Rapp MD Primary Care Provider [phone] Reason for Visit * Reason Onset Date Comments Medications Refill 03/22/2015 Encounter Details Date Type Department Care Team (Late st Contact Info) Description 03/22/[address] [facility] Rheumatology & Immunology - [facility] [address] [place], [place] [id number] China Penn RN Medications Refill Social History [...] No 10/21/2014 documented as of this encounter Ordered Prescriptions Prescription Sig Dispensed Refills Start Date End Da te Etanercept (ENBREL SURECLICK) 50 mg/mL (0.98 mL) pen injector Inject 50 mg into the skin once a week 12 Pen 3 03/22/2015 02/19/2016 documented in this encounter Plan of Treatment Upcoming Encounters Date Type Department Care Team (Late st Contact Info) Description 11/24/2023 10:00 EDT Telemedicine [facility] Rheumatology & Immunology - [address] [phone] Harsh Malloy, PSYCHIATRIC SECURITY NURSE 111 [facility], [address] [place] [phone] documented as of this encounter Visit Diagnoses Not on filedocumented in this encounter Discontinued Medications Medication Sig Discontinue Reason Start Date End Da te Etanercept (ENBREL SURECLICK) 50 mg/mL (0.98 mL) pen injector Inject 50 mg into the skin once a week. Reorder 04/18/2014 03/22/2015 documented as of this encounter Care Teams Acid Retort Operator Relationship Specialty Start Date End Date Meredith Rapp MD [address] [place] [address] PCP - General 08/09/10 08/04/18 documented as of this encounter
--- OUTSIDE RECORDS SUMMARY | 2023-11-13 17:04 | XMS_ITS | Encounter Summary ---
Author Organization [facility] Address [address] [place] [address] Care Team Providers Care Certified Hyperbaric Technician Name Role Phone Meredith Rapp MD Primary Care Provider [phone] Reason for Visit * Reason Onset Date Comments Medication Questions 04/07/2014 Enbrel Encounter Details Date Type Department Care Team (Late st Contact Info) Description 04/07/2014 Telephone [facility] Rheumatology & Immunology - [address] [phone] Etelvina Hernandez MD 111 [facility], [address] [place] [address] Medication Questions (Enbrel) Social History Tobacco Use Types Packs/Day Years [...] Telephone Encounter - China Penn RN - 04/07/2014 2267 EST Spoke with pt R/T MD response. Verbalized understanding. * Telephone Encounter - Etelvina Hernandez MD - 04/07/2014 1511 EST Agree with holding Enbrel, generally missing one dose does not cause a flare up. * Telephone Encounter - Marisol Tejeda RN - 04/07/2014 1454 EST Pt had to have chronically ingrown toenails removed with chemical agent. Had done last . This morning noticed some redness and swelling and wallpaperer put pt on abx. Has not picked up yet so unsure how long. Questions if she should hold Enbrel. Pt instructed to hold Enbrel until ABX completed and infection resolved. Concerned about increasing pain. Educated that missing one dose should not have an increase in pain but to call the office if questions. Verbalized understanding. * Telephone Encounter - Thalia Hassan - 04/07/2014 1359 EST Pt has toe infection and was given antibiotic. Takes Enbrel and would like to know if it's ok to inject Enbrel on Friday. Please advise. documented in this encounter Plan of Treatment Upcoming Encounters Date Type Department Care Team (Late st Contact Info) Description 11/24/2023 10:00 EDT Telemedicine [facility] Rheumatology & Immunology - [facility] [address] [place] [address] Harsh Malloy NP 111 [facility], [address] [place] [address] documented as of this encounter Visit Diagnoses Not on filedocumented in this encounter Care Teams Certified Hyperbaric Technician Relationship Specialty Start Date End Date Meredith Rapp MD [address] [place] [phone] PCP - General 08/09/10 08/04/18 documented as of this encounter
--- OUTSIDE RECORDS SUMMARY | 2023-11-13 17:04 | XMS_ITS | Encounter Summary ---
Author Organization [facility] Address [address] [place] [address] Care Team Providers Care Applications Engineering Manager Name Role Phone Meredith Rapp MD Primary Care Provider [phone] Reason for Visit * Reason Onset Date Comments Prior Auth, Medication 07/13/2012 Enbrel Prior Auth, Medication 07/13/2012 status Encounter Details Date Type Department Care Team (Late st Contact Info) Description 07/13/2012 Telephone [facility] Rheumatology & Immunology - [address] [address] China Penn RN Prior Auth, Medication (Enbrel); Prior Auth, Medication (status) Social History Tobacco Use Types Packs/Day Years [...] skin once a week. 12 Pen 1 07/16/2012 01/25/2013 documented in this encounter Miscellaneous Notes * Telephone Encounter - April Awan RN - 07/16/2012 1004 EDT Spoke with patient. Advised patient of Tabatha Pinedo's response. Patient verbalized understanding. Discussed insurance coverage and the patient is all set. She wants the script sent to [facility]. This has been done. She prefers to have the [employer] pen. She will call [facility] and be sure that she has an account set up. Also, once patient receives that med she will refrigerate it and call us to get set up for a teaching. Patient verbalized understanding of all the above. * Telephone Encounter - Leora Gibbons - 07/16/2012 0821 EDT Please call patient with the statu of her Enbrel. Thanks * Telephone Encounter - Tabatha Pinedo PA - 07/15/2012 1519 EDT Next time Iris calls, please let her know that all of her labs (including CBC, CMP, sed rate and hepatitis screening) were normal/negative. Her PPD was also negative. Once we figure out insurance coverage, ok to start Enbrel. * Telephone Encounter - April Awan RN - 07/15/2012 0839 EDT Spoke with patient. Patient states that a woman in her office has the same exact insurance and her Enbrel was covered in full. I advised patient that she should call her insurance and discuss this with them. Advised her to call back with an update. * Telephone Encounter - Deanna Ash RN - 07/14/2012 1414 EDT Left message for pt to return call. Enbrel has been approved from today until 01/13/15. Please inform pt she has 50% co-pay which is expensive (see encounter note below). Pt has commercial insurance filed with registration. Co-pay assistance through pharmaceutical company caps off at approx $4000, this may only help for about 3-4 months supply. Pt may apply for assistance through [employer] (a state program that covers Rx drugs for a low monthly premium, based on income eligibility). Pt may request assistance with application by calling [facility] Health Assistance Program [phone]. * Telephone Encounter - Ysabel Mario - 07/14/2012 1009 EDT Enbrel 50 mg PFS has been approved 07.14.12 through 01.13.2015. Auth # [id number]. However, patient has a 50% co-pay which is about $1175.00 for 30 day supply. * Telephone Encounter - China Penn RN - 07/13/2012 1639 EDT PPD was read as negative at PCP office. Await prior auth on Enbrel. documented in this encounter Plan of Treatment Upcoming Encounters Date Type Department Care Team (Late st Contact Info) Description 11/24/2023 10:00 EDT Telemedicine [facility] Rheumatology & Immunology - [facility] [address] [place], [place] [address] Harsh Malloy NP 111 [facility], [address] [place] [phone] documented as of this encounter Visit Diagnoses Not on filedocumented in this encounter Care Teams Applications Engineering Manager Relationship Specialty Start Date End Date Meredith Rapp MD [address] [place] [address] PCP - General 08/09/10 08/04/18 documented as of this encounter
--- OUTSIDE RECORDS SUMMARY | 2023-11-13 17:04 | XMS_ITS | Encounter Summary ---
Author Organization [facility] Address [address] [place] [address] Care Team Providers Care Snow Blower Name Role Phone Meredith Rapp MD Primary Care Provider Reason for Visit * Reason Comments Other Encounter Details Date Type Department Care Team (Late st Contact Info) Description 10/25/2013 Refill [facility] Rheumatology & Immunology [address] [phone] Tabatha Degroot PA-C [address] [place] [address] Other Social History Tobacco Use [...] te folic acid (FOLVITE) 1 mg tablet take 1 tablet by mouth once daily 90 Tab 3 10/25/2013 10/21/2014 documented in this encounter Plan of Treatment Upcoming Encounters Date Type Department Care Team (Late st Contact Info) Description 11/24/2023 10:00 EDT Telemedicine [facility] Rheumatology & Immunology [address] [address] Harsh Malloy, NUT SHELLER 111 [facility], [address] [place] [phone] documented as of this encounter Visit Diagnoses Not on filedocumented in this encounter Discontinued Medications Medication Sig Discontinue Reason Start Date End Da te folic acid (FOLVITE) 1 mg tablet take 1 tablet by mouth once daily Reorder 10/07/2012 10/25/2013 documented as of this encounter Care Teams Snow Blower Relationship Specialty Start Date End Date Meredith Rapp MD [address] [place] [address] PCP - General 08/09/10 08/04/18 documented as of this encounter
--- OUTSIDE RECORDS SUMMARY | 2023-11-13 17:04 | XMS_ITS | Encounter Summary ---
Author Organization [facility] Address [address] [place] [address] Care Team Providers Care Track Production Engineer Name Role Phone Meredith Rapp MD Primary Care Provider [phone] Reason for Visit * Reason Comments Follow-up Psoriatic Arthritis, Doing well, very minor hand pain Encounter Details Date Type Department Care Team (Late st Contact Info) Description 03/29/2011 10:00 EST Office Visit [facility] Rheumatology & Immunology - [address] [phone] Cecilia Bustos, MICHAEL [address] [facility] [address] [place] [address] Psoriatic arthritis ([facility]) ([facility]); Encounter for long-term (current) use of other [...] EST documented in this encounter Patient Instructions * Patient Instructions* Cecilia Bustos PA - 03/29/2011 10:21 EST 1. Increase [...] Da te methotrexate 2.5 mg tablet Take 8 Tabs by mouth once a week. 96 Tab 3 03/29/2011 07/30/2011 documented in this encounter Progress Notes * Cecilia Bustos PA - 03/29/2011 0944 EST Division of Rheumatology and Clinical Immunology Chief Complaint Patient presents with ??? Follow-up Psoriatic Arthritis, Doing well, very minor hand pain HPI: This is a pleasant 40 y.o. year old female with psoriatic arthritis who was last seen in December. Her recent increase to methotrexate 17.5 mg weekly has been helpful. She denies any mouth sores, cough, shortness of breath or chest pain. She and her whole family are getting over a upper respiratory infection. Her lingering symptom is a non-productive cough. She notes that her biggest improvement on methotrexate has been in morning stiffness and day-to-day hand/foot pain. She gauges this by her ability to shop longer without pain. Her right [...] acute distress. Alert and oriented to person, place and time. HEENT: NCAT, erythematous o/p erythematous dry [...] 4th PIP Complete fists with strong symmetric occupational work experience teacher strength. Knees: No effusion, no crepitus, no [...] a joint count of 4 today. Her right hand and foot seem to be her areas of breakthrough pain. Her day to day joint pain is much better with almost no morning stiffness. Will continue to monitor and re-evaluate in 4 months. Psoriasis-moderate control with methotrexate. Suspect she will benefit with increasing methotrexateto 20 mg weekly-higher if needed. Discussed the [...] Contact Info) Description 11/24/2023 10:00 EDT Telemedicine [facility] Rheumatology & Immunology - [facility] [address] [place], [place] [address] Harsh Malloy, TRAILER TANK TRUCK DRIVER 111 [facility], [address] [place] [phone] documented as of this encounter Visit Diagnoses Diagnosis Psoriatic arthritis ([facility]) Psoriatic arthropathy Encounter for long-term (current) use of other medications documented in this encounter Discontinued Medications Medication Sig Discontinue Reason Start Date End Da te methotrexate 2.5 mg tablet Take 7 Tabs by mouth once a week. Reorder 12/28/2010 03/29/2011 documented as of this encounter Care Teams Track Production Engineer Relationship Specialty Start Date End Date Meredith Rapp MD [address] [place] [address] PCP - General 08/09/10 08/04/18 documented as of this encounter
--- OUTSIDE RECORDS SUMMARY | 2023-11-13 17:04 | XMS_ITS | Encounter Summary ---
Author Organization [facility] Address [address] [place] [address] Care Team Providers Care Mottler Machine Feeder Name Role Phone Meredith Rapp MD Primary Care Provider [phone] Reason for Visit * Reason Comments New Patient Visit Psoriasis Encounter Details Date Type Department Care Team (Late st Contact Info) Description 10/07/2011 15:00 EDT Office Visit [facility] Dermatology 3rd Floor [address] [phone] Derek Fernando MD [address] [place] [address], [facility] [address] [place] [address] Psoriatic arthritis (CMS-HCC) ([facility]); Psoriasis Social History Tobacco Use Types Packs/Day Years [...] - documented in this encounter Patient Instructions * Patient Instructions* Clarissa Glass - 10/07/2011 15:38 EDT Use the shampoo daily to every few days. Use the clobetasol solution nightly. documented in this encounter Ordered Prescriptions Prescription Sig Dispensed Refills Start Date End Da te Salicylic Acid 6-6 % KtSG Topically once daily to affected areas 1 Bottle 11 10/07/2011 08/06/2017 clobetasol (TEMOVATE) 0.05 % external solution Apply topically twice a day to scalp. Do not apply to face, armpit or groin. 50 mL 1 10/07/2011 08/06/2017 documented in this encounter Progress Notes * Clarissa Glass - 10/07/2011 3155 EDT Dermatology Outpatient Visit Note Problem List: [...] several years now, along with psoriatic arthritis, andfor this she is on 9 tablets of Methotrexate weekly, along with folic acid. She notes that this hasworked considerably well for her joints, and has actually kept her skin in good control as well. She is followed by Rheumatology for this, and she does not drink alcohol. However, in the last year she has become increasingly troubled by a stubborn plaque on the posterior scalp. She has tried katwrlmhjo-oej-ydjpnkj medications for this which have not helped. She recalls having used the steroid shampoo in the past which she did not enjoy. She thinks that this degree of psoriasis is tolerable, but she wonders whether anything can be done to albert her symptoms of itch and scale. Her sister is onEnbrel and she has questions about that. For full Medical, Surgical, Family, and Social histories, please see the History section of this encounter in the electronic chart which I have personally reviewed. For Review of Systems, Medications and Allergies, please see those sections of this encounter in the electronic chart which I have also reviewed. OBJECTIVE [...] feet was performed.The examination was normal with theaddition of the following comments: On the occiput [...] (as she has been doing) and the useof calcipotriene, or we can pursue more aggressive [...] one bottle with 11 refills. She has tried topical salicylic acid products in the past. The patient is comfortable with this plan and will co ntinue Methotrexate at this point. However, to calm down the inflammation immediately and get the process started, will start with intralesional kenalog to plaque on scalp. 4. Return in about 1 year (around 10/06/2012) for psoriasis . Intralesional Kenalog After verbal consent, 0.5 cc 2.5 mg/ml of intralesional triamcinolone injection was injected into atotal of 1 lesion(s). Risks and benefits were [...] the entire procedure. DEREK FERNANDO MD Dermatology [facility] * Franci Hull - 10/07/2011 1457 EDT A complete 12 point review of systems was obtained and reviewed. All systems are negative except for: Rash, itching Franci Hull MA 14:57 10/07/2011 documented in this encounter Plan of Treatment Upcoming Encounters Date Type Department Care Team (Late st Contact Info) Description 11/24/2023 10:00 EDT Telemedicine [facility] Rheumatology & Immunology - [facility] [address] [place], [place] [address] aHrsh Malloy NP 111 [facility], [address] [place] [phone] documented as of this encounter Visit Diagnoses Diagnosis Psoriatic arthritis (HCC-CMS) Psoriatic arthropathy Psoriasis Other psoriasis documented in this encounter Care Teams Mottler Machine Feeder Relationship Specialty Start Date End Date Meredith Rapp MD [address] [place] [address] PCP - General 08/09/10 08/04/18 documented as of this encounter
--- OUTSIDE RECORDS SUMMARY | 2023-11-13 17:04 | XMS_ITS | Encounter Summary ---
Author Organization [facility] Address [address] [place] [address] Care Team Providers Care Pickler Helper Name Role Phone Meredith Rapp MD Primary Care Provider [phone] Reason for Visit * Reason Comments Follow-up has been doing well since last visit Encounter Details Date Type Department Care Team (Latest Contact Info) Description 01/12/2013 10:00 EDT Office Visit [facility] Rheumatology & Immunology - [facility] [address] [place], [place] [phone] Tabatha Degroot PAAltafC [address] [place], [place] [phone] Psoriasis with arthropathy (CMS-HCC) (HCC-CMS) (Primary Dx); Encounter for long-term (current) use of other [...] this encounter Patient Instructions * Patient Instructions* Tabatha Pinedo PA - 01/12/2013 10:05 EDT Decrease Methotrexate [...] Da te methotrexate 2.5 mg tablet Take 5 Tabs by mouth once a week. 20 Tab 5 01/12/2013 04/14/2013 documented in this encounter Progress Notes * Tabatha Pinedo PA - 01/12/2013 0942 EDT Images from the original note were not included. Division of Rheumatology and Clinical Immunology Chief Complaint Patient presents with ??? Follow-up has been doing well since last visit HPI: 42 year old female here for follow up of psoriatic arthritis. Generally followed by Dr. Gonzales myself. Last seen in clinic ~3 months [...] daily to affected areas. 60g 11 ??? folic acid (FOLVITE) 1 mg [...] improved on Enbrel. Continue same. Encounter for [facility] use of medication. Labs up to date. [...] entiretime the service was provided. MICHAEL Sahni 01/12/2013 10:25 Attestation statement: Supervising Physician AMBROCIO CHILD MD 01/13/2013 18:24 documented in this encounter Plan of Treatment Upcoming Encounters Date Type Department Care Team (Late st Contact Info) Description 11/24/2023 10:00 EDT Telemedicine [facility] Rheumatology & Immunology - [address] [phone] Harsh Malloy NP 111 [facility], [address] [place] [address] documented as of this encounter Visit Diagnoses Diagnosis Psoriasis with arthropathy ([facility] Primary Psoriatic arthropathy Encounter for long-term (current) use of other medications documented in this encounter Discontinued Medications Medication Sig Discontinue Reason Start Date End Da te methotrexate 2.5 mg tablet Take by mouth once a week. 6 Tabs once weekly Reorder 01/12/2013 documented as of this encounter Historical Medications * This list may reflect changes made after this encounter. Medication Sig Dispensed Refills Start Date End Date FLUTICASONE PROPIONATE (FLUTICASONE INHL) Inhale as directed daily. cetirizine (ZYRTEC) 10 mg tablet Take 1 Tablet by mouth daily. added in this encounter Care Teams Pickler Helper Relationship Specialty Start Date End Date Meredith Rapp MD [address] [place] [address] PCP - General 08/09/10 08/04/18 documented as of this encounter
--- OUTSIDE RECORDS SUMMARY | 2023-11-13 17:04 | XMS_ITS | Encounter Summary ---
Author Organization [facility] Address [address] [place] [address] Care Team Providers Care Assisted Living Nursing Director Name Role Phone Meredith Rapp MD Primary Care Provider [phone] Encounter Details Date Type Department Care Team (Late st Contact Info) Description 07/12/2015 Orders Only [facility] Rheumatology & Immunology - [facility] [address] [place] [address] Marisol Tejeda RN Social History Tobacco Use Types Packs/Day Years [...] Tab by mouth daily. 90 Tab 3 07/12/2015 07/08/2016 documented in this encounter Plan of Treatment Upcoming Encounters Date Type Department Care Team (Late st Contact Info) Description 11/24/2023 10:00 EDT Telemedicine [facility] Rheumatology & Immunology - [address] [address] Harsh Malloy, HEAVY TRUCK DRIVER [address] [facility], [address] [place] [address] documented as of this encounter Visit Diagnoses Not on filedocumented in this encounter Discontinued Medications Medication Sig Discontinue Reason Start Date End Da te folic acid (FOLVITE) 1 mg tablet Take 1 Tab by mouth daily Reorder 10/21/2014 07/12/2015 documented as of this encounter Care Teams Assisted Living Nursing Director Relationship Specialty Start Date End Date Meredith Rapp MD [address] [place] [address] PCP - General 08/09/10 08/04/18 documented as of this encounter
--- OUTSIDE RECORDS SUMMARY | 2023-11-13 17:04 | XMS_ITS | Encounter Summary ---
Author Organization [facility] Address [address] [place] [address] Care Team Providers Care Material Movers Name Role Phone Meredith Rapp MD Primary Care Provider [phone] Reason for Visit * Reason Comments Other Encounter Details Date Type Department Care Team (Late st Contact Info) Description 07/13/2013 Refill [facility] Rheumatology & Immunology [address] [id number] Tabatha Degroot PA-C [address] [place] [address] Other Social History Tobacco Use [...] take 5 tablets by mouth every week 20 Tab 1 07/13/2013 09/16/2013 documented in this encounter Plan of Treatment Upcoming Encounters Date Type Department Care Team (Late st Contact Info) Description 11/24/2023 10:00 EDT Telemedicine [facility] Immunology [address] [address] Harsh Malloy, COMMERCIAL BAKING TEACHER 111 [facility], [address] [place] [phone] documented as of this encounter Visit Diagnoses Not on filedocumented in this encounter Care Teams Material Movers Relationship Specialty Start Date End Date Meredith Rapp MD [address] [place] [phone] PCP - General 08/09/10 08/04/18 documented as of this encounter
--- OUTSIDE RECORDS SUMMARY | 2023-11-13 17:04 | XMS_ITS | Encounter Summary ---
Author Organization [facility] Address [address] [place] [address] Care Team Providers Care Flat Bed Operator Name Role Phone Meredith Rapp MD Primary Care Provider [phone] Reason for Visit * Reason Comments Other Encounter Details Date Type Department Care Team (Late st Contact Info) Description 09/14/2013 Refill [facility] Rheumatology & Immunology [address] [phone] Tabatha Degroot PA-C [address] [place] [address] Other Social History Tobacco Use [...] Contact Info) Description 11/24/2023 10:00 EDT Telemedicine [facility] Rheumatology Immunology [address] [phone] Harsh Malloy, BLOW MOLD TECHNICIAN 111 [facility], [address] [place] [address] documented as of this encounter Visit Diagnoses Not on filedocumented in this encounter Care Teams Flat Bed Operator Relationship Specialty Start Date End Date Meredith Rapp MD [address] [place] [address] PCP - General 08/09/10 08/04/18 documented as of this encounter
--- OUTSIDE RECORDS SUMMARY | 2023-11-13 17:04 | XMS_ITS | Encounter Summary ---
Author Organization [facility] Address [address] [place] [address] Care Team Providers Care Conductor Symphonic Orchestra Name Role Phone Meredith Rapp MD Primary Care Provider [phone] Reason for Visit * Reason Onset Date Comments Medications Refill 06/18/2013 Encounter Details Date Type Department Care Team (Late st Contact Info) Description 06/18/2013 Telephone [facility] Rheumatology & Immunology - [address] [phone] China Penn, IMAN Medications Refill Social History Tobacco Use Types [...] skin once a week. 12 Pen 3 06/18/2013 04/18/2014 documented in this encounter Miscellaneous Notes * Telephone Encounter - China Penn RN - 06/18/2013 1524 EST Faxed over prescription to [facility] for refill on Enbrel. FUR with PA in September. documented in this encounter Plan of Treatment Upcoming Encounters Date Type Department Care Team (Late st Contact Info) Description 11/24/2023 10:00 EDT Telemedicine [facility] Rheumatology & Immunology - [address] [phone] Harsh Malloy, MAGNETIC TESTING TECHNICIAN 111 [facility], [address] [place] [phone] documented as of this encounter Visit Diagnoses Not on filedocumented in this encounter Discontinued Medications Medication Sig Discontinue Reason Start Date End Da te Etanercept (ENBREL SURECLICK) 50 mg/mL (0.98 mL) Pen Injector Inject 50 mg into the skin once a week. Reorder 01/25/2013 06/18/2013 documented as of this encounter Care Teams Conductor Symphonic Orchestra Relationship Specialty Start Date End Date Meredith Rapp MD [address] [place] [address] PCP - General 08/09/10 08/04/18 documented as of this encounter
--- OUTSIDE RECORDS SUMMARY | 2023-11-13 17:04 | XMS_ITS | Encounter Summary ---
Author Organization Health system Address [address] [place] [address] Care Team Providers Care Epic Interface Analyst Name Role Phone Meredith Rapp MD Primary Care Provider [phone] Reason for Visit * Reason Comments Medication Management doing well Encounter Details Date Type Department Care Team (Latest Contact Info) Description 10/12/2013 11:00 EDT Office Visit [facility] Rheumatology & Immunology - [facility] [address] [place] [address] Tabatha Degroot, PAAltafC [address] [place], [place] [phone] Psoriasis with arthropathy (CMS-HCC) (HCC-CMS) (Primary Dx); Rash and other nonspecific skin eruption; Encounter for long-term (current) use of other [...] Diagnoses Diagnosis 696.0 PSORIATIC ARTHROPATHY[ICD-9-CM] V58.69 AFTERCARE CONNECTION WORKER USE MEDICATN[ICD-9-CM] documented in this encounter Patient Instructions * Patient Instructions* Tabatha Pinedo PA - 10/12/2013 11:07 EDT No changes today. Continue your current medications. Remember to have your labs checked every 2-3 months while on Methotrexate. Due again by the end of November. Follow up in 6 months, sooner as needed. documented in this encounter Progress Notes * Tabatha Pinedo PA - 10/12/2013 1054 EDT Division of Rheumatology and Clinical Immunology Chief Complaint Patient presents with ??? Medication Management doing well HPI: 43 year old female here for follow up of psoriatic arthritis. Generally followed by Dr. Gonzales myself. Last seen in clinic ~6 months ago. Continues to do well on Enbrel and Methotrexate. Tried tapering Methotrexate from 12.5 to 10 mg weekly after last visit but within a few weeks developed severe knee pain. Went back up to 12.5 mg weekly with resolution of symptoms. Joints have been ok [...] 50 mg into the skin once aweek. Tolerates ok without reported side effects. No [...] before strenuous activity (such as hiking). 180 Tab 1 ??? Salicylic Acid 6-6 [...] in nature. Dermatology is addressing. Encounter for residential use of medication. Labs up to date. [...] Contact Info) Description 11/24/2023 10:00 EDT Telemedicine [facility] Rheumatology & Immunology - [facility] [address] [place], [place] [address] Harsh Malloy NP 111 [facility], [address] [place] [address] documented as of this encounter Visit Diagnoses Diagnosis Psoriasis with arthropathy ([facility])- Primary Psoriatic arthropathy Rash and other nonspecific skin eruption Encounter for long-term (current) use of other medications documented in this encounter Care Teams Epic Interface Analyst Relationship Specialty Start Date End Date Meredith Rapp MD [address] [place] [address] PCP - General 08/09/10 08/04/18 documented as of this encounter
--- OUTSIDE RECORDS SUMMARY | 2023-11-13 17:04 | XMS_ITS | Encounter Summary ---
Author Organization [facility] Address [address] [place] [address] Care Team Providers Care Rewind Operator Name Role Phone Meredith Rapp MD Primary Care Provider [phone] Reason for Visit * Reason Onset Date Comments Results 06/22/2012 Encounter Details Date Type Department Care Team (Late st Contact Info) Description 06/22/2012 Telephone [facility] Rheumatology & Immunology - [address] [phone] Etelvina Hernandez MD 111 [facility], [address] [place] [address] Results Social History Tobacco Use [...] Encounter - Etelvina Hernandez MD - 06/22/2012 7053 EST Repeat LFTs now normal. Would restart methotrexate at 15 mg weekly, recheck labs as previous every 2 months. Message left on home machine. documented in this encounter Plan of Treatment Upcoming Encounters Date Type Department Care Team (Late st Contact Info) Description 11/24/2023 10:00 EDT Telemedicine [facility] Rheumatology & Immunology - [facility] [address] [place], [place] [phone] Harsh Malloy, HAIRSPRING I INSPECTOR 111 [facility], [address] [place] [phone] documented as of this encounter Visit Diagnoses Not on filedocumented in this encounter Care Teams Rewind Operator Relationship Specialty Start Date End Date Meredith Rapp MD [address] [place] [address] PCP - General 08/09/10 08/04/18 documented as of this encounter
--- OUTSIDE RECORDS SUMMARY | 2023-11-13 17:04 | XMS_ITS | Encounter Summary ---
Author Organization [facility] Address [address] [place] [address] Care Team Providers Care Beach Patrol Lieutenant Name Role Phone Meredith Rapp MD Primary Care Provider [phone] Reason for Visit * Reason Onset Date Comments Labs Only 01/20/2014 standing order [facility] [id number] Encounter Details Date Type Department Care Team (Late st Contact Info) Description 01/20/2014 Orders Only [facility] Rheumatology & Immunology [address] [address] Etelvina Hernandez MD [address] [place] [address], [address] [place] [address] Psoriasis with arthropathy (CMS-HCC) ([facility]) (Primary Dx) Social History Tobacco Use [...] [facility] Rheumatology & Immunology [address] [address] Harsh Malloy, CONSULTING SOFTWARE ENGINEER 111 [facility], [address] [place] [phone] documented as of this encounter Visit Diagnoses Diagnosis Psoriasis with arthropathy ([facility])- Primary Psoriatic arthropathy documented in this encounter Care Teams Beach Patrol Lieutenant Relationship Specialty Start Date End Date Meredith Rapp MD [address] [place] [address] PCP - General 08/09/10 08/04/18 documented as of this encounter
--- OUTSIDE RECORDS SUMMARY | 2023-11-13 17:04 | XMS_ITS | Encounter Summary ---
Author Organization [facility] Address [address] [place] [address] Care Team Providers Care Software Project Lead Name Role Phone Meredith Rapp MD Primary Care Provider [phone] Reason for Visit * Reason Comments Joint Pain elbow, fingers,feet Encounter Details Date Type Department Care Team (Late st Contact Info) Description 12/28/2010 10:45 EDT Office Visit [facility] Rheumatology & Immunology - [address] [address] Crispin Phillips MD [address] [place] [address], [address] [place] [address] Psoriatic arthritis ([facility] ([facility]); Encounter for long-term (current) use of [...] * Patient Instructions* Cecilia Bustos PA - 12/28/2010 11:29 EDT 1. [...] Tab by mouth daily. 90 Tab 3 12/28/2010 10/07/2011 methotrexate 2.5 mg tablet Take 7 Tabs by mouth once a week. 84 Tab 3 12/28/2010 03/29/2011 documented in this encounter Progress Notes * Cecilia Bustos PA - 12/28/2010 1119 EDT Division of Rheumatology and Clinical Immunology Chief Complaint Patient presents with ??? Joint Pain elbow, fingers,feet HPI: This is a pleasant 40 year old female with psoriatic arthritis. Since being started on the methotrexate 12.5 mg weekly in September, she is feeling better, but not great. Morning stiffness is down to1 hour in the morning. One flare since September occuring today in her right 2nd PIP. She's had no problems with methotrexate--no mouth sores, no rash, no fatigue [...] to person, place and time. HEENT: NCAT, PERRLA, NECK: Supple, no thyroid enlargement HEART: Regular rate and rhythm, no murmurs. LUNGS: Clear to auscultation ABDOMEN: Soft, non-tender, + bs x 4 MUSCULOSKELETAL: Bilateral elbow tenderness Swollen and tender R wrist, R MCPs #2-#4, PIPs #2-#5, R MTPs #2,#3 & L MTPs #2,#3, #4 Decreased dry end operator strength (R>L) with incomplete fist Right hand-R [...] methotrexate dosage. We expect to see increasing jointimprovement as well as psoriatic clearing over the [...] patient and 15 minutes of that time was spent in counseling and coordination of care as [...] [facility] Rheumatology & Immunology - [address] [place] [address] Harsh Malloy, BILLET CHECKER 111 [facility], [address] [place] [phone] documented as of this encounter Visit Diagnoses Diagnosis Psoriatic arthritis ([facility]) Psoriatic arthropathy Encounter for long-term (current) use of other medications documented in this encounter Discontinued Medications Medication Sig Discontinue Reason Start Date End Da te methotrexate 2.5 mg tablet Take 5 Tabs by mouth once a week. 10/24/2010 12/28/2010 folic acid (FOLVITE) 1 mg tablet Take 1 Tab by mouth daily. Reorder 10/24/2010 12/28/2010 documented as of this encounter Care Teams Software Project Lead Relationship Specialty Start Date End Date Meredith Rapp MD [address] [place] [address] PCP - General 08/09/10 08/04/18 documented as of this encounter
--- OUTSIDE RECORDS SUMMARY | 2023-11-13 17:04 | XMS_ITS | Encounter Summary ---
Author Organization [facility] Address [address] [place] [address] Care Team Providers Care Game Artist Name Role Phone Meredith Rapp MD Primary Care Provider [phone] Reason for Visit * Reason Onset Date Comments Medications Refill 01/07/2014 Encounter Details Date Type Department Care Team (Late st Contact Info) Description 01/07/2014 Refill [facility] Rheumatology & Immunology - [address] [phone] Etelvina Hernandez MD 111 [facility], [address] [place] [address] Medications Refill Social History Tobacco [...] mouth once a week. 60 Tab 1 01/10/2014 04/18/2014 documented in this encounter Miscellaneous Notes * Telephone Encounter - Talisha Loja RN - 01/10/2014 0810 EDTFrom: Nina Boothe To: Etelvina Hernandez MD Sent: 01/07/2014 18:20 EDT Subject: Medication Renewal Request Original authorizing provider: MD Nina Turner would like a refill of the following medications: methotrexate 2.5 mg tablet [Etelvina Hernandez MD] Preferred pharmacy: [address] Comment: documented in this encounter Plan of Treatment Upcoming Encounters Date Type Department Care Team (Late st Contact Info) Description 11/24/2023 10:00 EDT Telemedicine [facility] Rheumatology & Immunology - [address] [phone] Harsh Malloy NP 111 [facility], [address] [place] [phone] documented as of this encounter Visit Diagnoses Not on filedocumented in this encounter Discontinued Medications Medication Sig Discontinue Reason Start Date End Da te methotrexate 2.5 mg tablet Take 4 Tabs by mouth once a week. Reorder 04/14/2013 01/10/2014 methotrexate 2.5 mg tablet take 5 tablets by mouth every week. Dose adjustment 09/17/2013 01/12/2014 documented as of this encounter Care Teams Game Artist Relationship Specialty Start Date End Date Meredith Rapp MD [address] [place] [address] PCP - General 08/09/10 08/04/18 documented as of this encounter
--- OUTSIDE RECORDS SUMMARY | 2023-11-13 17:04 | XMS_ITS | Encounter Summary ---
Author Organization [facility] Address [address] [place] [address] Care Team Providers Care Bow Maker Production Name Role Phone Meredith Rapp MD Primary Care Provider [phone] Reason for Visit * Reason Comments Medication Management doing well Encounter Details Date Type Department Care Team (Late st Contact Info) Description 04/14/2013 10:30 EST Office Visit [facility] Rheumatology & Immunology - [address] [phone] Crispin Phillips MD [address] [place] [address], [address] [place] [address] Psoriasis with arthropathy (CMS-HCC) (HCC-CMS) [...] Sign Reading Time Taken Comments Blood Pressure 130/80 04/14/2013 1026 EST Pulse 76 04/14/2013 1026 EST Temperature - - Respiratory Rate 18 04/14/2013 1026 EST Oxygen Saturation - - Inhaled Oxygen Concentration - - Weight 63 kg (139 lb) 04/14/2013 1026 EST Height 165.1 cm (5' 5) 04/14/2013 1026 EST Body Mass Index 23.13 04/14/2013 1026 EST documented in this encounter Discharge Diagnoses Diagnosis 696.0 PSORIATIC ARTHROPATHY[ICD-9-CM] documented in this encounter Patient Instructions * Patient Instructions* Crispin Phillips MD - 04/14/2013 10:42 EST Get pneumovax - both 13 and 23 valent - check with Dr. Rapp Reduce methotrexate to 4 tabs a week - can go back to 5 tabs if any increased joint pain Continue regular labs every 3 months documented in this encounter Ordered Prescriptions Prescription Sig Dispensed Refills Start Date End Da te methotrexate 2.5 mg tablet Take 4 Tabs by mouth once a week. 20 Tab 5 04/14/2013 01/10/2014 documented in this encounter Progress Notes * Crispin Phillips MD - 04/14/2013 1030 EST Division of Rheumatology and Clinical Immunology Chief Complaint Patient presents with ??? Medication Management doing well HPI: Here for followup of psoriatic arthritis. The patient is feeling quite well. She reduce methotrexate to 1200 mg weekly at last visit, and has not had any flareup. She is status post flu vaccine.She denies infections. She does not recall receiving Pneumovax. Able to do spinning class this AM without any pain. Has new grandson (3 weeks old). Current Outpatient Prescriptions Medication Sig Dispense Refill [...] armpit or groin. 50 mL 1 ??? Etanercept (ENBREL SURECLICK) 50 mg/mL (0.98 mL) Pen Injector Inject 50 mg into the skin once aweek. 12 Pen 1 ??? FLUTICASONE PROPIONATE (FLUTICASONE INHL) Inhale as directed daily. ??? folic acid (FOLVITE) 1 mg tablet take 1 tablet by mouth once daily 90 Tab 3 ??? loratadine-pseudoephedrine (CLARITIN-D 24 HOUR) 10-240 mg per tablet Take 1 Tab by mouth daily as needed. NOT TAKING CURRENTLY ??? methotrexate 2.5 mg tablet Take 5 Tabs by mouth once a week. 20 Tab 5 ??? Multivitamins with Minerals Tab Take 1 Tab by mouth daily. ??? naproxen (NAPROSYN) 500 mg tablet Take 1 Tab by mouth 2 times daily as needed for Pain. Take with food first 60 Tab 11 ??? Salicylic Acid 6-6 % KtSG Topically [...] x Hair Loss x PHYSICAL EXAMINATION: BP 130/80 Pulse 76 Resp 18 Ht 165.1 cm (65) Wt 63.05 kg (139 lb) BMI 23.13 kg/m2 Head and neck: no cervical nodes Chest: clear MSK: FROM upper and lower extremities with no synovitis LABS from outside hospital on April 08, 2013 show CBC normal, creatinine 1.1, albumin 3.9, totalprotein 6.7, alkaline phosphatase 73, AST 17, ALT 23. Diagnosis / Assessment: Psoriatic arthritis doing well Recommendations/Evaluation: She can try reducing methotrexate to 10 mg weekly. We can slowly try to wean her but would stop if she has increased arthritis symptoms. She can go back to 12.5 mg if any increased symptoms. Talk to her about getting Pneumovax, there is a new polyvalent one (we do not have at the moment) and should get this and the old one in the proper order - she will discuss and get from her PCP. Continue labs every 3 months Followup in 6 months with MICHAEL Pinedo and 6 months after that with me. Barriers to learning identified: No Patient verbalizes understanding and agrees with plan Yes CRISPIN PHILLIPS MD 04/14/2013 10:36 documented in this encounter Plan of Treatment Upcoming Encounters Date Type Department Care Team (Late st Contact Info) Description 11/24/2023 10:00 EDT Telemedicine [facility] Rheumatology & Immunology - [address] [phone] Harsh Malloy, LIGHT OUT EXAMINER 111 [facility], [address] [place] [phone] documented as of this encounter Visit Diagnoses Diagnosis Psoriasis with arthropathy ([facility])- Primary Psoriatic arthropathy documented in this encounter Discontinued Medications Medication Sig Discontinue Reason Start Date End Da te methotrexate 2.5 mg tablet Take 5 Tabs by mouth once a week. Order modification 01/12/2013 04/14/2013 documented as of this encounter Care Teams Bow Maker Production Relationship Specialty Start Date End Date Meredith Rapp MD [address] [place] [phone] PCP - General 08/09/10 08/04/18 documented as of this encounter
--- OUTSIDE RECORDS SUMMARY | 2023-11-13 17:04 | XMS_ITS | Encounter Summary ---
Author Organization [facility] Address [address] [place] [address] Care Team Providers Care Grain Buyer Name Role Phone Meredith Rpap MD Primary Care Provider Reason for Referral * Other Type (Routine/Next Available) - Closed Specialty Diagnoses / Procedures Referred By Twyla love Referred To Contact Diagnoses Psoriatic arthritis ([facility]) Other psoriasis Tabatha Degroot PA-C [address] [place] [address] Referral ID Status Reason Start Date Expiration Date V isits Requested Visits Authorized [id number] Closed Other 07/08/2012 1 1 Question Answer Medication to be Prior Authorized: Enbrel 50 mg SC once weekly Comments The purpose of this consult request is to inform the scheduling staff that a medication needs to be prior-authorized before it is prescribed and/or administered. Reason for Visit * Reason Comments Joint Pain all over Encounter Details Date Type Department Care Team (Latest Contact Info) Description 07/08/2012 9:00 EDT Office Visit [facility] Rheumatology & Immunology - [facility] [address] [place], [place] [address] Tabatha Degroot PA-C [address] [place] [address] Psoriatic arthritis ([facility]) ([facility]) (Primary Dx); Other psoriasis; Encounter for long-term (current) use of other [...] * Patient Instructions* Tabatha Pinedo PA - 07/08/2012 9:59 EDT We have requested prior authorization for Enbrel. This is an injection you will give yourself once weekly. It may take up to 2 weeks to receive approval. In the meantime, please go to the lab to haveyour blood drawn. Also have a PPD (tuberculin [...] scheduled. documented in this encounter Progress Notes * DEPARTMENT OF SOCIOLOGY CHAIR, SCAN 2 - 07/14/2012 0843 EDT * Tabatha Pinedo, MICHAEL - 07/08/2012 0853 EDT Images from the [...] well but not recently. Has Clobetasol solution for scalp but doesn't use it much as she [...] reported side effects. Denies oral ulcers or GIupset. No recent infections. 36 Tab 11 ??? [...] Methotrexate. Unfortunately we don't have much room to adjust Methotrexate due to recent elevation in liver [...] weekly for now. May be able to titrateto a lower dose once on Enbrel. 3. Labs (CBC/CMP/ESR/hepatitis screening) today. Repeat CBC and CMP every 2 months to monitor for toxicity. 4. PPD ordered - at patient's preference, will be placed and read through primary care office. 5. As long as labs and PPD are negative, will have nursing contact Iris to set up an appointment for medication training once prior authorization for Enbrel approved. 6. Follow up with Dr. Hernandez as previously scheduled (next appointment in September), sooner as needed. Barriers to learning identified: No Patient verbalizes understanding and agrees with plan: Yes I was directly supervised by Dr. Rollins who was in the suite and immediately available for the entire time the service was provided. MICHAEL Sahni 07/08/2012 9:27 Electronically signed by Katelin Rollins MD documented in this encounter Plan of Treatment Upcoming Encounters Date Type Department Care Team (Late st Contact Info) Description 11/24/2023 10:00 EDT Telemedicine [facility] Rheumatology & Immunology - [address] [id number] Harsh Malloy, ELBERT [address] [place] [address], [address] [place] [phone] Scheduled Orders Name Type Priority Associated Diagnoses Orde r Schedule HEMAGRAM AND DIFFERENTIAL Lab Routine Psoriatic arthritis ([facility]) ([facility]) Other psoriasis Encounter for long-term (current) use of other medications Expected: 07/08/2012 (Approximate), Expires: 07/08/2013 COMPREHENSIVE METABOLIC PANEL (CMP) Lab Routine Psoriatic arthritis ([facility]) ([facility]) Other psoriasis Encounter for long-term (current) use of other medications Expected: 07/08/2012 (Approximate), Expires: 07/08/2013 Scheduled Referrals Name Type Priority Associated Diagnoses Order Schedule AMB MEDICATION PRIOR AUTHORIZATION Outpatient Referral Routine Psoriatic arthritis (CMS-HCC) ([facility]) Other psoriasis Ordered: 07/08/2012 documented as of this encounter Results * SED. RATE:WESTERGREN (07/08/2012 10:18 EDT) Sed. Rate Westergren 4 0 - 20 mm/hr [facility] Blood specimen (specimen) 07/08/2012 10:18 EDT 07/08/2012 10:36 EDT Tabatha Degroot PA-C HEMATOLOGY & PF4 O RDERABLES Performing Organization Address [facility] Co de Phone Number [facility] [address] [place] [address] * HEPATITIS C ANTIBODY (07/08/2012 10:18 EDT) Pathologist [facility] Hepatitis C Ab Negative [facility] Comment:Reference Range: Neg ative Blood specimen (specimen) 07/08/2012 10:18 EDT 07/08/2012 10:36 EDT Tabatha Degroot PA-C CHEMISTRY & BLOOD GAS ORDERABLES Performing Organization Address [facility] Phone Number [facility] [address] [place] [address] * HEPATITIS B SURFACE ANTIGEN (07/08/2012 10:18 EDT) Pathologist [facility] Hepatitis B Surface Ag Negative [facility] Comment:Reference Range: Neg ative Blood specimen (specimen) 07/08/2012 10:18 EDT 07/08/2012 10:36 EDT Tabatha Degroot PA-C CHEMISTRY & BLOOD GAS ORDERABLES Performing Organization Address [facility] Phone Number [facility] [address] [place] [address] * HEPATITIS B SURFACE ANTIBODY (07/08/2012 10:18 EDT) Hepatitis B Surface Ab Negative [facility] Comment: Reference Range: Unvaccinated: ??Negative Vaccinated: ??Positive HBs Antibody, Quant <5.0 mIU/mL [facility] Comment: Patient is presumed to not be immune to infection with HBV. Reference Range: Positive: >=12.0 mIU/mL Indeterminate: >=5.0 to <12.0 mIU/mL Negative: <5.0 mIU/mL Blood specimen (specimen) 07/08/2012 10:18 EDT 07/08/2012 10:36 EDT Tabatha Degroot PA-C CHEMISTRY & BLOOD GAS ORDERABLES Performing Organization Address [facility] Co de Phone Number [facility] [address] [place] [address] * HEPATITIS B CORE ANTIBODY (07/08/2012 10:18 EDT) Hep B Core Ab Negative [facility] Comment: Reference Range: ??Negative Interpretation depends on clinical setting. Blood specimen (specimen) 07/08/2012 10:18 EDT 07/08/2012 10:36 EDT Tabatha Degroot PA-C CHEMISTRY & BLOOD GAS ORDERABLES Performing Organization Address [facility] Co de Phone Number [facility] [address] [place] [address] documented in this encounter Visit Diagnoses Diagnosis Psoriatic arthritis ([facility])- Primary Psoriatic arthropathy Other psoriasis Encounter for long-term (current) use of other medications documented in this encounter Care Teams Grain Buyer Relationship Specialty Start Date End Date Meredith Rapp MD [address] [place] [address] PCP - General 08/09/10 08/04/18 documented as of this encounter
--- OUTSIDE RECORDS SUMMARY | 2023-11-13 17:04 | XMS_ITS | Encounter Summary ---
Author Organization [facility] Address [address] [place] [address] Care Team Providers Care Filling Hand Name Role Phone Meredith Rapp MD Primary Care Provider [phone] Reason for Visit * Reason Comments Other Encounter Details Date Type Department Care Team (Late st Contact Info) Description 10/07/[address] [facility] Rheumatology & Immunology [address] [address] Cecilia Bustos, MICHAEL [address] [phone] Other Social History Tobacco Use Types Packs/Day [...] by mouth once daily 90 Tab 3 10/07/2012 10/25/2013 documented in this encounter Plan of Treatment Upcoming Encounters Date Type Department Care Team (Late st Contact Info) Description 11/24/2023 10:00 EDT Telemedicine [facility] Rheumatology & Immunology [address] [phone] Harsh Malloy NP [address] [facility], [address] [place] [address] documented as of this encounter Visit Diagnoses Not on filedocumented in this encounter Discontinued Medications Medication Sig Discontinue Reason Start Date End Da te folic acid (FOLVITE) 1 mg tablet Take 1 Tab by mouth daily. Reorder 10/07/2011 10/07/2012 documented as of this encounter Care Teams Filling Hand Relationship Specialty Start Date End Date Meredith Rapp MD [address] [place] [phone] PCP - General 08/09/10 08/04/18 documented as of this encounter
--- OUTSIDE RECORDS SUMMARY | 2023-11-13 17:04 | XMS_ITS | Encounter Summary ---
Author Organization [facility] Address [address] [place] [address] Care Team Providers Care Developmental Mathematics Instructor Name Role Phone Meredith Rapp MD Primary Care Provider [phone] Reason for Visit * Reason Comments Medications Refill pending Labs Only standing orders pend ed Follow-up psoriatic arthritis/ Encounter Details Date Type Department Care Team (Late st Contact Info) Description 10/07/2011 14:15 EDT Office Visit [facility] Rheumatology & Immunology - [facility] [address] [place], [place] [phone] Cecilia Bustos, MICHAEL [address] [facility] [address] [place] [address] Psoriatic arthritis ([facility]) ([facility]) (Primary Dx); Encounter for long-term (current) use [...] Tab by mouth daily. 90 Tab 3 10/07/2011 10/07/2012 methotrexate 2.5 mg tablet Take 9 Tabs by mouth once a week. 108 Tab 3 10/07/2011 10/09/2011 documented in this encounter Progress Notes * Cecilia Bustos PA - 10/07/2011 1410 EDT [...] on the 22.5 mg weekly, however her psoriasisis not improving. She has tried many over the [...] be prior to methotrexate. She used to f eel stiff and sore for days after a day of hard exercise, now she feels pain in the evening but recovers in the morning. Outpatient Prescriptions Prior to Visit Medication [...] #2 synovitis. Complete fists with strong symmetric senior specialist strength Hips: Full ROM without pain or [...] mg split dosed weekly and naprosyn. Still mild activity in her right hand and right foot. Would expect continued improvement from methotrexate dose change less than 2 months ago, however, if no improvement at follow up she may need an additionalagent. Briefly discussed anti-tnf agents and their side effects which could include increased risk of severe or life threatening infection, demyelinating neurologic disease, cytopenia, elevated liverenzymes, increased risk of cancer especially skin cancer. [...] labs every 2-3 months for liver toxicity. July labs, as above, show no abnormalities. Recommendation: [...] was seeing patients. Jl Gray MD. 10/08/2011 * Jacki Watt - 10/07/2011 0487 EDT Subjective: Patient ID: Nina Boothe is [...] 10:00 EDT Telemedicine [facility] Rheumatology & Immunology - [facility] [address] [place] [address] Harsh Malloy NP [address] [facility], [address] [place] [phone] documented as of this encounter Visit Diagnoses Diagnosis Psoriatic arthritis ([facility])- Primary Psoriatic arthropathy Encounter for long-term (current) use of other medications documented in this encounter Discontinued Medications Medication Sig Discontinue Reason Start Date End Da te calcipotriene (DOVONOX) 0.005 % cream Apply to rash on elbows and abdomen daily Insurance does not cover 07/30/2011 10/07/2011 Calcipotriene 0.005 % Soln Apply to scalp daily. Insurance does not cover 07/30/2011 10/07/2011 methotrexate 2.5 mg tablet Take 9 Tabs by mouth once a week. Reorder 07/30/2011 10/07/2011 folic acid (FOLVITE) 1 mg tablet Take 1 Tab by mouth daily. Reorder 12/28/2010 10/07/2011 documented as of this encounter Care Teams Developmental Mathematics Instructor Relationship Specialty Start Date End Date Meredith Rapp MD [address] [place] [address] PCP - General 08/09/10 08/04/18 documented as of this encounter
--- OUTSIDE RECORDS SUMMARY | 2023-11-13 17:04 | XMS_ITS | Encounter Summary ---
Author Organization [facility] Address [address] [place] [address] Care Team Providers Care Thread Separator Name Role Phone Meredith Rapp MD Primary Care Provider [phone] Reason for Visit * Reason Comments Psoriasis doing very well Rash Left elbow Encounter Details Date Type Department Care Team (Late st Contact Info) Description 10/12/2013 10:00 EDT Office Visit [facility] Dermatology 3rd Floor [address] [phone] Leta Hugo MD [address] [facility], [address] [place] [address] Psoriasis (Primary Dx); Dermatitis Social History Tobacco Use Types Packs/Day Years Used Date Smoking Tobacco: Never Smokeless Tobacco: Never Alcohol Use Standard Drinks/Week Comments No 0 (1 standard drink = 0.6 oz pur e alcohol) Sex and Gender Information Value Date Recorded Sex Assigned at Female 06/29/2019 10:58 EST Gender Identity Female 06/29/2019 10:58 EST Sexual Orientation Straight 06/29/2019 10 :58 EST documented as of this encounter Discharge Diagnoses Diagnosis 692.9 DERMATITIS NOS[ICD-9-CM] 696.1 OTHER PSORIASIS[ICD-9-CM] documented in this encounter Patient Instructions * Patient Instructions* [place] - 10/12/2013 9:50 EDT SUN PROTECTION AND SUN SCREENS Most of a person's lifetime sun exposure occurs before the age of 18!! Skin cancer can be prevented! Protect yourself and your child from the sun! Avoiding the sun is the best protection! IF YOUR CHILD IS GETTING A SUNTAN DESPITE USING SUNSCREEN, THEY ARE STILL GETTING TOO MUCH SUN! YOUWILL NEED TO USE COVER-UP CLOTHING AND KEEP THEM OUT OF THE SUN! Repeated and prolonged exposure to sunlight greatly increases your risk of all types of skin cancer. In addition, chronic sun exposure is the major cause of wrinkles, spotty, and unhealthy appearing skin. It???s important to have a healthy and active lifestyle and we encourage you to continue this.However, some common sense guidelines will help to keep your skin and eyes safe. ?? Avoid the hot mid-day sun. Try to schedule your outdoor activities for early years teacher or early evening. ?? Make clothing a regular part of protection. Keep your shirt on - wear long sleeves and a wide brimmed hat. ?? Be especially careful when on the water, snow or sand as sunlight is reflected upwards from these surfaces. ?? Don???t forget your eyes and lips! Wear sunglasses- Sun exposure increases your risk for cataracts. Wear lip balm with an SPF. ?? Make sure your children practice good sun protection. Early sun damage increases their risk of developing skin cancer. ?? Wear a sunscreen. We recommend using a sunscreen with both UVA and UVB protection and a SPF of at least 30. If you sunburn more easily or are in more intense sun, you will need a higher SPF. A ???waterproof?? sunscreen is usually good for about 2 hours, even if you???re swimming. A sunscreen should be reapplied every 2 hours and after swimming. Remember to put sunscreen on your ears and lips.There are many lip balms available with sunscreen. [...] than UVA and most sunscreens are targeted towards this wavelength. Tanning while wearing sunscreen may mean that primarily UVA light is reaching the skin. This is the same UVA light that is used in tanning beds and is responsible for causing wrinkles, brown spots and possibly melanoma. For this reason, we recommend that you don???t use tanning b eds and that you use sunscreen with both UVA and UVB protection. Most sunscreen ingredients are good at blocking UVB light. The only ingredients that also do a goodjob blocking UVA light are listed below. Make sure your sunscreen contains one of these ingredients. CAUTION: in some people Parasol may cause staining of white clothing. ?? Parasol (avobenzone) ?? Zinc Oxide ?? Titanium Oxide Some recommended brands: ?? Blue Lizard ?? Coppertone ?? Neutrogena ?? Bull Frog Good ???everyday?? moisturizer for the face: ?? Tizo daily moisturizer with SPF ?? Samantha RODRIGUEZ daily moisturizer with SPF ?? Oil of Olay Complete Sun Protection ?? Cetaphil daily facial moisturizer ?? Neutrogena daily facial moisturizer Recommended resources for sun protective clothing and hats: ?? www.Ulmart ?? Www.Gist.EasilyDo ?? For sensitive skin, look for sunscreens that contain: Zinc Oxide & Titanium Oxide. These areoften labeled baby or sensitive. Use clobetasol ointment at night to the rash on the elbows and Lidex (fluocinonide) during the day. documented in this encounter Ordered Prescriptions Prescription Sig Dispensed Refills Start Date End Da te clobetasol (TEMOVATE) 0.05 % ointmentIndications:Derm atitis Apply topically to affected area at bedtime Apply nightly to the rash on elbow. Do not apply to face, armpit or groin.. 30 g 2 10/12/2013 08/06/2017 documented in this encounter Progress Notes * Franci Hull B - 10/12/2013 1004 EDT Review of Systems Constitutional: Negative for fever, fatigue and unexpected weight change. HENT: Negative for mouth sores. Eyes: Negative for pain. Respiratory: Negative for cough and shortness of breath. Cardiovascular: Negative for chest pain and palpitations. Gastrointestinal: Negative for nausea, vomiting, abdominal pain, diarrhea, constipation and blood in stool. Genitourinary: Negative for dysuria, frequency and hematuria. Musculoskeletal: Negative for myalgias, joint swelling, arthralgias and muscle stiffness in the morning. Skin: Positive for rash. Neurological: Negative for numbness and headaches. Endo/Heme/Allergies: Does not bruise/bleed easily. Psychiatric/Behavioral: Negative for sleep disturbance. The patient is not nervous/anxious. Franci Hull 10/12/2013 10:04 * [place] - 10/12/2013 0949 EDT Dermatology Outpatient Visit Note Chief Complaint Patient presents with ??? Psoriasis doing very well ??? Rash Left elbow Dermatologic History: 1. Psoriasis, plaque type with psoriatic arthritis - on Enbrel, methotrexate 12.5 mg per week Last Dermatology office visit: September 2012 SUBJECTIVE Ms. Boothe is a 43 y.o. female who presents for follow up for psoriasis treatment. She is currently on MTX 12.5 mg weekly and Enbrel weekly and at her last visit, for her scalp, betamethasone solution and Dovonex. Rheumatology is managing the systemic medications. She notes that she has no psoriasis including on her scalp. She does have [...] electronic chart which I have also reviewed. She [...] and nails. was performed.The examination was normal with the addition of the following comments: There were [...] ointment to use at night and instructed touse Lidex during the day, about twice daily total application of topical steroids. She will call ifit does not resolve for a possible biopsy. -She [...] or groin.. Dispense: 30 g Refill: 2 [place] MD 10/12/2013 12:50 Attestation Statement: I saw and examined the patient with the resident/fellow. I agree with the findings and plan of care documented in the resident's/fellow's note. Leta Hugo MD Dermatology [facility] documented in this encounter Plan of Treatment Upcoming Encounters Date Type Department Care Team (Late st Contact Info) Description 11/24/2023 10:00 EDT Telemedicine [facility] Rheumatology & Immunology - [address] [address] Harsh Malloy, ELBERT [address] [facility], [address] [place] [phone] documented as of this encounter Visit Diagnoses Diagnosis Psoriasis- Primary Other psoriasis Dermatitis Contact dermatitis and other eczema, due to unspecified cause documented in this encounter Care Teams Thread Separator Relationship Specialty Start Date End Date Meredith Rapp MD [address] [place] [phone] PCP - General 08/09/10 08/04/18 documented as of this encounter
--- OUTSIDE RECORDS SUMMARY | 2023-11-13 17:04 | XMS_ITS | Encounter Summary ---
Author Organization [facility] Address [address] [place] [address] Care Team Providers Care Sewer Bricklayer Name Role Phone Meredith Rapp MD Primary Care Provider [phone] Reason for Visit * Reason Onset Date Comments Medications Refill 01/25/2013 Encounter Details Date Type Department Care Team (Late st Contact Info) Description 01/25/[address] [facility] Rheumatology & Immunology - [address] [phone] Etelvina Hernandez MD [address] [place] [address], [address] [place] [address] Medications Refill Social History Tobacco [...] skin once a week. 12 Pen 1 01/25/2013 06/18/2013 documented in this encounter Miscellaneous Notes * Telephone Encounter - Katelin Loo - 01/25/2013 1427 EDT Medication(s) Requested: enbrel Pharmacy: [facility] Last Refill Date: 07.16.12 Last Visit Date: 01.12.13 Next Visit Date: 04/14/2013 Is patient out of medication?rosanna Loo 01/25/2013 14:28 documented in this encounter Plan of Treatment Upcoming Encounters Date Type Department Care Team (Late st Contact Info) Description 11/24/2023 10:00 EDT Telemedicine [facility] Rheumatology & Immunology - [address] [phone] Harsh Malloy NP [address] [facility], [address] [place] [address] documented as of this encounter Visit Diagnoses Not on filedocumented in this encounter Discontinued Medications Medication Sig Discontinue Reason Start Date End Da te Etanercept (ENBREL SURECLICK) 50 mg/mL (0.98 mL) PnIj Inject 50 mg into the skin once a week. Reorder 07/16/2012 01/25/2013 documented as of this encounter Care Teams Sewer Bricklayer Relationship Specialty Start Date End Date Meredith Rapp MD [address] [place] [address] PCP - General 08/09/10 08/04/18 documented as of this encounter
--- OUTSIDE RECORDS SUMMARY | 2023-11-13 17:04 | XMS_ITS | Encounter Summary ---
Author Organization [facility] Address [address] [place] [address] Care Team Providers Care Building Performance Consultant Name Role Phone Meredith Rapp MD Primary Care Provider [phone] Reason for Visit * Reason Comments Medication Management doing well Encounter Details Date Type Department Care Team (Latest Contact Info) Description 10/21/2014 13:45 EDT Office Visit [facility] Rheumatology & Immunology - [facility] [address] [place], [place] [address] Tabatha Degroot, PAAltafC [address] [place], [place] [phone] Psoriasis with arthropathy (CMS-HCC) (HCC-CMS) (Primary Dx); [...] No 10/21/2014 documented as of this encounter Discharge Diagnoses Diagnosis 696.0 PSORIATIC ARTHROPATHY[ICD-9-CM] V58.69 AFTERCARE CUSTODIAL USE MEDICATN[ICD-9-CM] documented in this encounter Patient Instructions * Patient Instructions* Tabatha Degroot PA - 10/21/2014 14:22 EDT No [...] Tab by mouth daily 90 Tab 3 10/21/2014 07/12/2015 documented in this encounter Progress Notes * Tabatha Degroot PA - 10/21/2014 1408 EDT Images from the original note were not included. Division of Rheumatology and Clinical Immunology Chief Complaint Patient presents with ??? Medication Management doing well HPI: Ms. Nina Boothe is a 44 y.o. female here for follow up of psoriatic arthritis. Changes since last visit: No medication changes. Remains on Enbrel and Methotrexate. Doing well. Nomajor flares. Affected joints: Denies current joint or [...] Good control on current regimen. Encounter for assisted use of medication. Labs up to date. [...] consultation if needed. Stuart Flores MD 10/21/2014 * China Haro - 10/21/2014 1352 EDT REVIEW OF SYSTEMS: [...] entire body? 0 f. Bend down to worm picker clothing from the floor? 0 g. [...] Contact Info) Description 11/24/2023 10:00 EDT Telemedicine [facility] Rheumatology & Immunology - [address] [phone] Harsh Malloy NP [address] [place] [address], [address] [place] [address] documented as of this encounter Visit Diagnoses Diagnosis Psoriasis with arthropathy ([facility])- Primary Psoriatic arthropathy Encounter for long-term (current) use of other medications documented in this encounter Discontinued Medications Medication Sig Discontinue Reason Start Date End Da te cephALEXin (KEFLEX) 500 mg capsule Take 500 mg by mouth 4 times daily. Therapy completed 10/21/2014 folic acid (FOLVITE) 1 mg tablet take 1 tablet by mouth once daily Reorder 10/25/2013 10/21/2014 documented as of this encounter Historical Medications * This list may reflect changes made after this encounter. Medication Sig Dispensed Refills Start Date End Date montelukast (SINGULAIR) 10 mg tablet Take 1 Tablet by mouth daily. added in this encounter Care Teams Building Performance Consultant Relationship Specialty Start Date End Date Meredith Rapp MD [address] [place] [address] PCP - General 08/09/10 08/04/18 documented as of this encounter
--- OUTSIDE RECORDS SUMMARY | 2023-11-13 17:04 | XMS_ITS | Encounter Summary ---
Author Organization [facility] Address [address] [place] [address] Care Team Providers Care Furniture Sprayer Name Role Phone Meredith Rapp MD Primary Care Provider [phone] Encounter Details Date Type Department Care Team (Late st Contact Info) Description 07/30/2011 Phlebotomy Only [address] [id number] Apprenticeship Representative, Outpatient Psoriatic arthritis ([facility] ([facility]); Encounter for long-term (current) use of [...] [facility] Rheumatology & Immunology [address] [address] Harsh Malloy NP [address] [facility], [address] [place] [phone] documented as of this encounter Procedures Procedure Name Priority Date/Time Associated Diagnosis Comments COMPLETE BLOOD COUNT AND DIFFERENTIAL Routine 07/30/2011 16:29 EDT Psoriatic arthritis ([facility]) ([facility]) Encounter for long-term (current) use of other medications ALT Routine 07/30/2011 16:29 EDT Psoriatic arthritis ([facility]) ([facility]) Encounter for long-term (current) use of other medications AST Routine 07/30/2011 16:29 EDT Psoriatic arthritis ([facility]) ([facility]) Encounter for long-term (current) use of other medications ALKALINE PHOSPHATASE Routine 07/30/2011 16:29 EDT Psoriatic arthritis ([facility] ([facility]) Encounter for long-term (current) use of other medications CREATININE Routine 07/30/2011 16:29 EDT Psoriatic arthritis ([facility] ([facility]) Encounter for long-term (current) use of other medications ALBUMIN Routine 07/30/2011 16:29 EDT Psoriatic arthritis ([facility]) ([facility]) Encounter for long-term (current) use of other medications documented in this encounter Results * (ABNORMAL) HEMAGRAM AND DIFFERENTIAL (07/30/2011 16:29 EDT) WBC 6.70 4.0 - 12.4 K/cmm [facility] [...] - 35.9 gm/dl [facility] PLT 327(H) 141 - 320 K/cmm [facility] RDW-CV 16.1(H) 11.7 - 14.6 % [facility] % Neutrophils 64.5 45.5 - 79.7 % [facility] % Lymphocytes 22.2 15.0 - 46.8 % [facility] % Monocytes 10.6 1.8 - 12.0 % [facility] % Eosinophils 2.2 0.6 - 6.9 % [facility] % Basophils 0.5 0.2 - 1.4 % [facility] ABS Neutrophils 4.32 2.20 - 8.85 K/cmm [facility] ABS Lymphs 1.49 1.09 - 3.30 K/cmm [facility] ABS Monocytes 0.71 0.1 - 0.8 K/cmm [facility] ABS Eosinophils 0.15 0.03 - 0.61 K/cmm [facility] ABS Basophils 0.03 0.01 - 0.11 K/cmm [facility] Type of Diff: Automated [facility] Blood specimen (specimen) 07/30/2011 16:29 EDT 07/30/2011 16:55 EDT Etelvina Hernandez MD PACKAGES & DNA PROBE ORDERABLES [facility] [address] [place] [address] * CREATININE (07/30/2011 16:29 EDT) Creatinine 0.75 0.52 - 1.04 mg/dl [facility] GFR, Calculated >60 >60 ml/min/1.7 3m2 [facility] Blood specimen (specimen) 07/30/2011 16:29 EDT 07/30/2011 16:55 EDT Etelvina Hernandez MD CHEMISTRY & BLOOD GA S ORDERABLES Performing Organization Address City/[facility]/ZIP Co de Phone Number [facility] [address] [place] [address] * AST (07/30/2011 16:29 EDT) AST 23 15 - 46 U/L [facility] Blood specimen (specimen) 07/30/2011 16:29 EDT 07/30/2011 16:55 EDT Etelvina Hernandez MD CHEMISTRY & BLOOD GA S ORDERABLES Performing Organization Address [facility] Co de Phone Number [facility] [address] [place] [address] * ALT (07/30/2011 16:29 EDT) ALT 28 9 - 52 U/L [facility] Blood specimen (specimen) 07/30/2011 16:29 EDT 07/30/2011 16:55 EDT Etelvina Hernandez MD CHEMISTRY & BLOOD GA S ORDERABLES Performing Organization Address [facility] Phone Number [facility] [address] [place] [address] * ALKALINE PHOSPHATASE (07/30/2011 16:29 EDT) Total Alkaline Phosphatase 78 38 - 126 U/L [facility] Blood specimen (specimen) 07/30/2011 16:29 EDT 07/30/2011 16:55 EDT Etelvina Hernandez MD CHEMISTRY & BLOOD GA S ORDERABLES Performing Organization Address [facility] de Phone Number [facility] [address] [place] [address] * ALBUMIN (07/30/2011 16:29 EDT) Albumin 4.3 3.4 - 4.9 g/dl [facility] Blood specimen (specimen) 07/30/2011 16:29 EDT 07/30/2011 16:55 EDT Etelvina Hernandez MD CHEMISTRY & BLOOD GA S ORDERABLES Performing Organization Address [facility] de Phone Number [facility] [address] [place] [address] documented in this encounter Visit Diagnoses Diagnosis Psoriatic arthritis ([facility]) Psoriatic arthropathy Encounter for long-term (current) use of other medications documented in this encounter Care Teams Furniture Sprayer Relationship Specialty Start Date End Date Meredith Rpap MD [address] [place] [phone] PCP - General 08/09/10 08/04/18 documented as of this encounter
--- OUTSIDE RECORDS SUMMARY | 2023-11-13 17:04 | XMS_ITS | Encounter Summary ---
Author Organization [facility] Address [address] [place] [address] Care Team Providers Care Hand Cloth Examiner Name Role Phone Meredith Rapp MD Primary Care Provider [phone] Encounter Details Date Type Department Care Team (Late st Contact Info) Description 07/08/2012 Phlebotomy Only [address] [address] Habitat Management Coordinator, Outpatient Psoriatic arthritis ([facility]) ([facility]); Psoriatic arthropathy ([facility]); Encounter for long-term (current) use of other medications; Elevated liver enzymes; Other psoriasis Social History Tobacco Use Types [...] Description 11/24/2023 10:00 EDT Telemedicine [facility] Rheumatology & Immunology [address] [phone] Harsh Malloy, GRINDER SET UP OPERATOR UNIV[employer]AL [address] [place] [address], [facility] [address] [place] [phone] documented as of this encounter Procedures Procedure Name Priority Date/Time Associated Diagnosis Comments HEPATITIS C AB W REFLEX TO HCV RNA BY PCR Routine 07/08/2012 10:18 EDT Encounter for long-term (current) use of other medications Psoriatic arthritis (CMS-HCC) ([facility]) Other psoriasis HEPATITIS B CORE ANTIBODY (TOTAL) Routine 07/08/2012 10:18 EDT Psoriatic arthritis (CMS-HCC) ([facility]) Other psoriasis Encounter for long-term (current) use of other medications DIFFERENTIAL Routine 07/08/2012 10:18 EDT HEPATITIS B SURFACE ANTIBODY Routine 07/08/2012 10:18 EDT Psoriatic arthritis (CMS-HCC) ([facility]) Other psoriasis Encounter for long-term (current) use of other medications HEPATITIS B SURFACE ANTIGEN Routine 07/08/2012 10:18 EDT Psoriatic arthritis (CMS-HCC) ([facility]) Other psoriasis Encounter for long-term (current) use of other medications SED RATE Routine 07/08/2012 10:18 EDT Psoriatic arthritis (CMS-HCC) ([facility]) Other psoriasis COMPLETE BLOOD COUNT Routine 07/08/2012 10:18 EDT COMPLETE BLOOD COUNT AND DIFFERENTIAL Routine 07/08/2012 10:18 EDT Psoriatic arthritis (CMS-HCC) ([facility]) COMPREHENSIVE METABOLIC PANEL (CMP) Routine 07/08/2012 10:18 EDT Psoriatic arthritis (CMS-HCC) ([facility]) documented in this encounter Results * DIFFERENTIAL (07/08/2012 10:18 EDT) % Neutrophils 66.9 45.5 - 79.7 % [facility] % Lymphocytes 21.7 15.0 - 46.8 % [facility] % Monocytes 8.8 1.8 - 12.0 % [facility] % Eosinophils 1.7 0.6 - 6.9 % [facility] % Basophils 0.9 0.2 - 1.4 % [facility] ABS Neutrophils 4.67 2.20 - 8.85 K/cmm [facility] ABS Lymphs 1.51 1.09 - 3.30 K/cmm [facility] ABS Monocytes 0.61 0.1 - 0.8 K/cmm [facility] ABS Eosinophils 0.12 0.03 - 0.61 K/cmm [facility] ABS Basophils 0.06 0.01 - 0.11 K/cmm [facility] Type of Diff: Automated [facility] 07/08/2012 10:1 8 EDT 07/08/2012 10:36 EDT Cecilia RODRIGUEZ HEMATOLOGY & PF4 OR DERABLES Performing Organization Address [facility] de Phone Number [facility] [address] [place] [address] * HEMAGRAM (07/08/2012 10:18 EDT) WBC 6.97 4.0 - 12.4 K/cmm [facility] RBC 4.57 3.86 - 5.04 M/cmm [facility] Hemoglobin 15.2 11.6 - 15.2 gm/dl [facility] HCT 43.9 34.9 - 44.4 % [facility] MCV 96 81 - 98 fl [facility] MCH 33.3 26.7 - 33.3 pg [facility] MCHC 34.7 32.1 - 35.9 gm/dl [facility] PLT 249 141 - 320 K/cmm [facility] RDW-CV 13.7 11.7 - 14.6 % [facility] 07/08/2012 10:1 8 EDT 07/08/2012 10:36 EDT Cecilia RODRIGUEZ HEMATOLOGY & PF4 OR DERABLES Performing Organization Address [facility] Co de Phone Number [facility] [address] [place] [address] * SED. RATE:WESTERGREN (07/08/2012 10:18 EDT) Sed. Rate Westergren 4 0 - 20 mm/hr [facility] Blood specimen (specimen) 07/08/2012 10:18 EDT 07/08/2012 10:36 EDT Tabatha RODRIGUEZ-C HEMATOLOGY & PF4 O RDERABLES Performing Organization Address [facility] de Phone Number [facility] [address] [place] [address] * HEPATITIS C ANTIBODY (07/08/2012 10:18 EDT) Pathologist [facility] Hepatitis C Ab Negative [facility] Comment:Reference Range: Neg ative Blood specimen (specimen) 07/08/2012 10:18 EDT 07/08/2012 10:36 EDT Tabatha RODRIGUEZ-C CHEMISTRY & BLOOD GAS ORDERABLES Performing Organization Address [facility] de Phone Number [facility] [address] [place] [address] * HEPATITIS B SURFACE ANTIGEN (07/08/2012 10:18 EDT) Pathologist [facility] Hepatitis B Surface Ag Negative [facility] Comment:Reference Range: Neg ative Blood specimen (specimen) 07/08/2012 10:18 EDT 07/08/2012 10:36 EDT Tabatha RODRIGUEZ-C CHEMISTRY & BLOOD GAS ORDERABLES Performing Organization Address [facility] de Phone Number [facility] [address] [place] [address] * HEPATITIS B SURFACE ANTIBODY (07/08/2012 10:18 EDT) Pathologist [facility] Hepatitis B Surface Ab Negative [facility] [...] & BLOOD GAS ORDERABLES Performing Organization Address [facility] de Phone Number [facility] [address] [place] [address] * HEPATITIS B CORE ANTIBODY (07/08/2012 10:18 EDT) Pathologist [facility] Hep B Core Ab Negative [facility] Comment: Reference Range: ??Negative Interpretation depends on clinical setting. Blood specimen (specimen) 07/08/2012 10:18 EDT 07/08/2012 10:36 EDT Tabatha Degroot PA-C CHEMISTRY & BLOOD GAS ORDERABLES Performing Organization Address [facility] de Phone Number [facility] [address] [place] [address] * COMPREHENSIVE METABOLIC PANEL (CMP) (07/08/2012 10:18 EDT) Pathologist [facility] Potassium 4.4 3.5 - 5.0 mEq/L [facility] Sodium 141 136 - 145 mEq/L [facility] Chloride 102 96 - 110 mEq/L [facility] CO2 26 24 - 32 mEq/L [facility] Total Alkaline Phosphatase 63 38 - 126 U/L [facility] Bilirubin, Total 0.9 0.2 - 1.3 mg/dl [facility] AST 35 15 - 46 U/L [facility] ALT 51 9 - 52 U/L [facility] Albumin 4.4 3.4 - 4.9 g/dl [facility] Total Protein 6.9 6.5 - 8.3 g/dl [facility] Creatinine 0.77 0.52 - 1.04 mg/dl [facility] GFR, Calculated >60 >60 ml/min/1.7 3m2 [facility] BUN 12 10 - 26 mg/dl [facility] Calcium 9.3 8.5 - 10.5 mg/dl [facility] Calculated Calcium 9.3 8.5 - 10.5 mg/dl [facility] Glucose, Serum 84 70 - 100 mg/dl [facility] Fasting? Unknown [facility] Blood specimen (specimen) 07/08/2012 10:18 EDT 07/08/2012 10:36 EDT Cecilia RODRIGUEZ CHEMISTRY & BLOOD G ORDERABLES Performing Organization Address City/State/[facility] Co de Phone Number [facility] [address] [place] [address] documented in this encounter Visit Diagnoses Diagnosis Psoriatic arthritis (HCC-CMS) Psoriatic arthropathy Psoriatic arthropathy (HCC-CMS) Psoriatic arthropathy Encounter for long-term (current) use of other medications Elevated liver enzymes Other nonspecific abnormal serum enzyme levels Other psoriasis documented in this encounter Orders Lab Orders Without Results Count Last Ordered D ate First Ordered Date COMPREHENSIVE METABOLIC PANEL (CMP) 1 07/08 HEMAGRAM AND DIFFERENTIAL 1 07/08/2012 documented in this encounter Care Teams Hand Cloth Examiner Relationship Specialty Start Date End Date Meredith Rapp MD [address] [place] [address] PCP - General 08/09/10 08/04/18 documented as of this encounter
--- OUTSIDE RECORDS SUMMARY | 2023-11-13 17:04 | XMS_ITS | Encounter Summary ---
Author Organization [facility] Address [address] [place] [address] Care Team Providers Care Snow Removing Supervisor Name Role Phone Meredith Rapp MD Primary Care Provider [phone] Reason for Visit * Reason Onset Date Comments Labs Only 06/17/2012 Encounter Details Date Type Department Care Team (Late st Contact Info) Description 06/17/2012 Telephone [facility] Rheumatology & Immunology - [address] [phone] Etelvina Hernandez MD [address] [facility], [address] [place] [address] Labs Only Social History Tobacco Use Types Packs/Day Years [...] 06/17/2012 1305 EST New orders faxed to [facility] at [phone]. Message left for pt. Instructed her to do labs one week after stopping her methotrexate as ordered by Dr. Hernandez. * Telephone Encounter - Jacki Watt - 06/17/2012 1303 EST Sent pt a copy of labs and faxed copy to [facility] * Telephone Encounter - Gabriela Tsai - 06/17/2012 1244 EST Pt calling in follow up to 06/10 call as her understanding was that dr. Hernandez was re-ordering theselabs for re-drawn in 1 wk, but hasn't received this, will be getting drawn @ [facility], pls contact pt on her cell# documented in this encounter Plan of Treatment Upcoming Encounters Date Type Department Care Team (Late st Contact Info) Description 11/24/2023 10:00 EDT Telemedicine [facility] Rheumatology & Immunology - [facility] [address] [place], [place] [phone] Harsh Malloy, ELBERT [address] [facility], [address] [place] [phone] documented as of this encounter Visit Diagnoses Not on filedocumented in this encounter Care Teams Snow Removing Supervisor Relationship Specialty Start Date End Date Meredith Rapp MD [address] [place] [address] PCP - General 08/09/10 08/04/18 documented as of this encounter
--- OUTSIDE RECORDS SUMMARY | 2023-11-13 17:04 | XMS_ITS | Encounter Summary ---
Author Organization [facility] Address [address] [place] [address] Care Team Providers Care Route Cdl Driver Name Role Phone Meredith Rapp MD Primary Care Provider [phone] Reason for Visit * Reason Comments Follow-up routine follow-up, tarah heard since last visit Encounter Details Date Type Department Care Team (Latest Contact Info) Description 11/06/2015 10:00 EDT Office Visit [facility] Rheumatology & Immunology - [facility] [address] [place], [place] [phone] Tabatha Degroot PA-C [address] [place], [place] [phone] Psoriasis with arthropathy (CMS-HCC) (HCC-CMS) (Primary Dx); [...] No 11/06/2015 documented as of this encounter Discharge Diagnoses Diagnosis L40.50 Arthropathic psoriasis, unspecified-L40.50[ICD-10-CM] Z79.899 Other salvage determiner (current) drug therapy-Z79.899[ICD-10-CM] documented in this encounter Patient Instructions * Patient Instructions* Tabatha Degroot PA - 11/06/2015 11:15 EDT No changes today.?? Continue your same medications including Enbrel and Methotrexate. Remember to have your labs checked every 3-4 months to monitor your medications.?? Due again by theend of this month. Follow up with Dr. Hernandez in 6 months, sooner if needed. documented in this encounter Ordered Prescriptions Prescription Sig Dispensed Refills Start Date End Da te methotrexate 2.5 mg tablet Take 6 Tabs by mouth once a week. 78 Tab 1 11/06/2015 03/26/2016 documented in this encounter Progress Notes * Tabatha Degroot PA - 11/06/2015 1106 EDT [...] to 6 tabs weekly. Helped. Remains on Enbrelonce weekly. Affected joints: Still has a little [...] Inject 50 mg into the skin once aweek Tolerates ok without reported side effects. No [...] to monitor your medications.?? Due again by theend of this month. Follow up with Dr. Hernandez in 6 months, sooner if needed. Barriers to learning identified: No Patient verbalizes understanding and agrees with plan: Yes I was supervised by Dr. Sutherland who was in the suite and immediately available for the entire time the service was provided. MICHAEL Riggs 11/06/2015 11:06 Attestation statement: Supervising Physician Nat Sutherland MD * Marisol Tejeda RN - 11/06/2015 1023 EDT REVIEW OF [...] Contact Info) Description 11/24/2023 10:00 EDT Telemedicine [facility] Rheumatology & Immunology - [address] [phone] Harsh Malloy NP [address] [facility], [address] [place] [address] documented as of this encounter Visit Diagnoses Diagnosis Psoriasis with arthropathy ([facility])- Primary Psoriatic arthropathy Encounter for long-term (current) use of medications Encounter for long-term (current) use of other medications documented in this encounter Discontinued Medications Medication Sig Discontinue Reason Start Date End Da te methotrexate 2.5 mg tablet Take 6 Tabs by mouth once a week. Reorder 07/24/2015 11/06/2015 documented as of this encounter Care Teams Route Cdl Driver Relationship Specialty Start Date End Date Meredith Rapp MD [address] [place] [address] PCP - General 08/09/10 08/04/18 documented as of this encounter
--- OUTSIDE RECORDS SUMMARY | 2023-11-13 17:04 | XMS_ITS | Encounter Summary ---
Author Organization [facility] Address [address] [place] [address] Care Team Providers Care Last Waxer Name Role Phone Meredith Rapp MD Primary Care Provider [phone] Reason for Visit * Reason Comments Joint Pain Off Enbrel x a weeks R/T foot surgery/infection. Hands are starting to hurt. Medication Management Wants to know if s he can start Enbrel. Has remained on methotrexate. Encounter Details Date Type Department Care Team (Late st Contact Info) Description 04/18/2014 11:00 EST Office Visit [facility] Rheumatology & Immunology - [address] [phone] Etelvina Hernandez MD 111 [facility], Level 5 [place] [address] Psoriasis with arthropathy (CMS-HCC) (HCC-CMS) (Primary Dx); Nail bed infection Social History Tobacco Use Types Packs/Day [...] NOS[ICD-9-CM] documented in this encounter Patient Instructions * Patient Instructions* Etelvina Hernandez MD - 04/18/2014 11:33 EST Hold [...] skin once a week. 12 Pen 3 04/18/2014 03/22/2015 methotrexate 2.5 mg tablet Take 5 Tabs by mouth once a week. 60 Tab 3 04/18/2014 04/18/2015 documented in this encounter Progress Notes * Etelvina Heranndez MD - 04/18/2014 1125 EST Division of [...] and had a procedure to burn the roots.Unfortunately she did develop a post procedure infection and was placed on Keflex last week. She says her toe in traction is resolving but she [...] daily to affected areas. 60g 11 ??? cephALEXin (KEFLEX) 500 mg capsule [...] into the skin once aweek. 12 Pen 3 ??? FLUTICASONE PROPIONATE (FLUTICASONE [...] 65.318 kg (144 lb) BMI 23.59 kg/m2 [facility] 04/11/2014 MSK: Very mild swelling and tenderness bilateral index and middle PIPs. No synovitis noted over theremainder of the upper or lower extremities. Ext: [...] she is off Keflex the infection will have resolved. Patient Instructions Hold Enbrel until next week [...] [facility] & Immunology - [address] [phone] Harsh Malloy NP [address] [place] [address], [address] 5 [place] [phone] documented as of this encounter Visit Diagnoses Diagnosis Psoriasis with arthropathy ([facility]-CMS)- Primary Psoriatic arthropathy Nail bed infection Cellulitis and abscess of unspecified digit documented in this encounter Discontinued Medications Medication Sig Discontinue Reason Start Date End Da te atenolol (TENORMIN) 50 mg tabletIndications:Psori atic arthritis (HCC-CMS),Encounter for long-term (current) use of other medications Take 50 mg by mouth daily. Discontinued by another clinician 04/18/2014 methotrexate 2.5 mg tablet Take 5 Tabs by mouth once a week. Reorder 01/10/2014 04/18/2014 Etanercept (ENBREL SURECLICK) 50 mg/mL (0.98 mL) Pen Injector Inject 50 mg into the skin once a week. Reorder 06/18/2013 04/18/2014 documented as of this encounter Historical Medications * This list may reflect changes made after this encounter. Medication Sig Dispensed Refills Start Date End Date cephALEXin (KEFLEX) 500 mg capsule Take 500 mg by mouth 4 times daily. 10/21/2014 added in this encounter Care Teams Last Waxer Relationship Specialty Start Date End Date Meredith Rapp MD [address] [place] [address] PCP - General 08/09/10 08/04/18 documented as of this encounter
--- OUTSIDE RECORDS SUMMARY | 2023-11-13 17:04 | XMS_ITS | Encounter Summary ---
Author Organization [facility] Address [address] [place] [address] Care Team Providers Care Program Aide Name Role Phone Meredith Rapp MD Primary Care Provider [phone] Reason for Visit * Reason Comments Hand Pain has been off Enbrel x two weeks due to cold virus Encounter Details Date Type Department Care Team (Late st Contact Info) Description 04/18/2015 10:15 EST Office Visit [facility] Rheumatology & Immunology - [address] [phone] Etelvina Hernandez MD [address] [place] [address], [address] 5 [place] [address] Rhinitis medicamentosa (Primary Dx); Psoriasis with arthropathy ([facility]-HCC) ([facility]) Social History Tobacco Use Types Packs/Day [...] No 04/18/2015 documented as of this encounter Discharge Diagnoses Diagnosis J31.0 Chronic rhinitis-J31.0[ICD-10-CM] T48.5X1A Poisoning by other rdcy-vibefh-njgo drugs, accidental (unintentional), initial encounter-T48.5X1A[ICD-10-CM] L40.50 Arthropathic psoriasis, unspecified-L40.50[ICD-10-CM] documented in this encounter Patient Instructions * Patient Instructions* Etelvina Hernandez MD - 04/18/2015 10:44 EST Stop [...] 6 Tabs by mouth once a week 72 Tab 3 04/18/2015 07/14/2015 documented in this encounter Progress Notes * Etelvina Hernandez MD - 04/18/2015 1013 EST [...] mouse. There may be slight swelling. The rest of her joints are okay. She has been off her Enbrel for the past 2 weeks because of an upper respiratory infection. She began with fever and sore throat which lasted 2 days, but is now gone. She does not feel any sinus pressure and says it does not feel like when she has had sinusitis in the past. She just has congestion in her nose with clear secretions. Some fatigue and aches and pains. Nonproductive cough. No ear pain. Coworkers have had a similar respiratory infection. She has been using A frin nasal spray fairly regularly for the past couple [...] topically once to twice daily to affected areas.NOTTAKING 60 g 11 ??? cetirizine (ZYRTEC) 10 [...] 50 mg into the skin once aweek NOT TAKING 12 Pen 3 ??? FLUTICASONE [...] sinus tenderness. No exudate in the throat. Nocervical nodes. Chest: Clear MSK: Tenderness over some [...] to chronic nasal congestion. I do not thinkshe has an active infection. Recommendations/Evaluation: Patient Instructions [...] plan Yes Etelvina Hernandez MD 04/18/2015 10:41 * Marisol Tejeda RN - 04/18/2015 1006 EST REVIEW OF [...] entire body? 0 f. Bend down to hand picker clothing from the floor? 0 g. [...] Info) Description 11/24/2023 10:00 EDT Telemedicine [facility] Rheumatology & Immunology - [address] [address] Harsh Malloy NP 111 [facility] 5 [place] [phone] documented as of this encounter Visit Diagnoses Diagnosis Rhinitis medicamentosa- Primary Chronic rhinitis Psoriasis with arthropathy (HCC-CMS) Psoriatic arthropathy documented in this encounter Discontinued Medications Medication Sig Discontinue Reason Start Date End Da te methotrexate 2.5 mg tablet Take 5 Tabs by mouth once a week. Reorder 04/18/2014 04/18/2015 documented as of this encounter Historical Medications * This list may reflect changes made after this encounter. Medication Sig Dispensed Refills Start Date End Date lisinopril (PRINIVIL, ZESTRIL) 10 mg tablet Take 1 Tablet by mouth daily. added in this encounter Care Teams Program Aide Relationship Specialty Start Date End Date Meredith Rapp MD [address] [place] [address] PCP - General 08/09/10 08/04/18 documented as of this encounter
--- OUTSIDE RECORDS SUMMARY | 2023-11-13 17:04 | XMS_ITS | Encounter Summary ---
Author Organization [facility] Address [address] [place] [address] Care Team Providers Care Bookkeeping Machine Operator Name Role Phone Meredith Rapp MD Primary Care Provider [phone] Reason for Visit * Reason Comments Joint Pain minimal; stiffness i n right hand Encounter Details Date Type Department Care Team (Late st Contact Info) Description 10/12/2012 10:45 EDT Office Visit [facility] Rheumatology & Immunology - [address] [address] Crispin Phillips MD 111 [facility], [address] 5 [place] [address] Psoriasis with arthropathy (CMS-HCC) (HCC-CMS) [...] * Patient Instructions* Crispin Phillips MD - 10/12/2012 10:59 EDT Continue same medications Get labs every 2-3 months documented in this encounter Progress Notes * Crispin Phillips MD - 10/12/2012 1049 EDT [...] on Enbrel at last visit. This helped quitea bit. She is feeling much better. With the exception of her scalp her psoriasis rash is also improved. She has only minimal right hand stiffness. She denies any injection site reactions or infections on the Enbrel. Current Outpatient Prescriptions Medication Sig Dispense Refill ??? methotrexate 2.5 mg tablet Take by mouth once a week. 6 Tabs once weekly ??? folic acid (FOLVITE) 1 mg tablet take 1 tablet by mouth once daily 90 Tab 3 ??? Etanercept (ENBREL SURECLICK) 50 mg/mL (0.98 mL) PnIj Inject 50 mg into the skin once a week. 12 Pen 1 ??? loratadine-pseudoephedrine (CLARITIN-D 24 [...] Contact Info) Description 11/24/2023 10:00 EDT Telemedicine [facility] Rheumatology & Immunology - [address] [phone] Harsh Malloy, ELBERT 111 [facility], [address] [place] [phone] documented as of this encounter Visit Diagnoses Diagnosis Psoriasis with arthropathy ([facility])- Primary Psoriatic arthropathy documented in this encounter Discontinued Medications Medication Sig Discontinue Reason Start Date End Da te methotrexate 2.5 mg tablet Take 9 Tabs by mouth once a week. Dose adjustment 02/19/2012 10/12/2012 documented as of this encounter Historical Medications * This list may reflect changes made after this encounter. Medication Sig Dispensed Refills Start Date End Date methotrexate 2.5 mg tablet Take by mouth once a week. 6 Tabs once weekly 01/12/2013 added in this encounter Care Teams Bookkeeping Machine Operator Relationship Specialty Start Date End Date Meredith Rapp MD [address] [place] [address] PCP - General 08/09/10 08/04/18 documented as of this encounter
--- OUTSIDE RECORDS SUMMARY | 2023-11-13 17:04 | XMS_ITS | Encounter Summary ---
Author Organization [facility] Address [address] [place] [address] Care Team Providers Care Redrawer Name Role Phone Meredith Rapp MD Primary Care Provider [phone] Encounter Details Date Type Department Care Team (Late st Contact Info) Description 02/09/2015 Documentation Visit [facility] Rheumatology & Immunology - [facility] [address] [place] [address] [address] Solis [address] [address] Social History Tobacco Use Types Packs/Day Years [...] No 10/21/2014 documented as of this encounter Progress Notes * Lilo Solis RPH - 02/09/2015 7466 EDT Prior Authorization Approval for Rheumatology Medication: Enbrel SureClick 50mg/0.98mL Approved through: 02/09/2016 Authorization Number: [id number] Insurance: [employer] ([place]) Pharmacy: [facility] Copay Assistance Program Information for Commercially Insured Patients only: Brand Generic Online (Encourage patients to enroll online) Phone Actemra Tocilizumab https://Battlefy/actemra_register 9-989-ARKWDUB ( ) Cimzia Certolizumab https://The Training Room (TTR)/signup 8-984-404-CARE ( ) Enbrel Etanercept https://www.Mobile Health Consumer/support/financial-assistance/ 0-771-8XJMPLJ ( ) Forteo Teriparatide http://www.NanoVasceoOlive Media/oopznk-ny-cvi-card.aspx Humira Adalimumab https://www.humira.Centro/my-humira/sign-up .4HUMIRA ( ) Kineret Anakinra http://www.kineretrx.Centro/ *Kineret is only available through [facility] [phone] Orencia Abatacept https://www.UnboundIDtheStyleCraze Beauty Care [employer]vt Ltd.Centro/orencia/# 1-823-SQUIJHI ( ) Otezla Apremilast http://www.otezla.com/pso/copay 8-548-4ZWJJLX ( ) Remicade Infliximab http://www.remistart.Centro/ 9-631-LKYNCF-1 ( ) Rituxan Rituximab https://Battlefy/rituxan_register 7-762-DS-COPAY ( ) Simponi Golimumab https://webrebate.trialNew Horizons Entertainmentd.com/Coupon/SimponiPortal/ 7-MY SIMPONI ( ) Stelara Ustekinumab https://Esphion/Coupon/StelaraPortal/ 4-934-TMNGMZB ( ) Xeljanz Tofacitinib http://www.Drewavan Coaching and Training/co-pay-card 4-756-6-XELJANZ ( ) documented in this encounter Plan of Treatment Upcoming Encounters Date Type Department Care Team (Late st Contact Info) Description 11/24/2023 10:00 EDT Telemedicine [facility] Rheumatology & Immunology - [address] [phone] Harsh Malloy, ELBERT 111 [facility], [address] [place] [phone] documented as of this encounter Visit Diagnoses Not on filedocumented in this encounter Care Teams Redrawer Relationship Specialty Start Date End Date Meredith Rapp MD [address] [place] [address] PCP - General 08/09/10 08/04/18 documented as of this encounter
--- OUTSIDE RECORDS SUMMARY | 2023-11-13 17:04 | XMS_ITS | Encounter Summary ---
Author Organization [facility] Address [address] [place] [address] Care Team Providers Care Manager Strategic Name Role Phone Meredith Rapp MD Primary Care Provider [phone] Reason for Referral * (Routine/Next Available) - Closed Specialty Diagnoses / Procedures Referred By Twyla love Referred To Contact Diagnoses Elevated liver enzymes Procedures AST Etelvina Hernandez MD [address] [address] Referral ID Status Reason Start Date Expiration Date Visits Re quested Visits Authorized [id number] Closed 06/10/2012 1 1 * (Routine/Next Available) - Closed Specialty Diagnoses / Procedures Referred By Twyla love Referred To Contact Diagnoses Elevated liver enzymes Procedures ALT Etelvina Hernandez MD [address] [address] Referral ID Status Reason Start Date Expiration Date Visits Re quested Visits Authorized [id number] Closed 06/10/2012 1 1 Reason for Visit * Reason Onset Date Comments Results 06/10/2012 Encounter Details Date Type Department Care Team ([facility] st Contact Info) Description 06/10/2012 Telephone [facility] Rheumatology & Immunology [address] [phone] Etelvina Hernandez MD [address] [place] [address] Results Social History Tobacco Use Types [...] Recommended holding methotrexate and rechecking labs in aweek. Then depending on result decide whether to restart methotrexate. Message left on phone machine. documented in this encounter Plan of Treatment Upcoming Encounters Date Type Department Care Team (Late st Contact Info) Description 11/24/2023 10:00 EDT Telemedicine [facility] Rheumatology & Immunology [address] [phone] Harsh Malloy, ELBERT [address] [place] [address] documented as of this encounter Visit Diagnoses Diagnosis Elevated liver enzymes- Primary Other nonspecific abnormal serum enzyme levels documented in this encounter Orders Lab Orders Without Results Count Last Ordered D ate First Ordered Date ALT 1 06/10/2012 AST 1 06/10/2012 documented in this encounter Care Teams Manager Strategic Relationship Specialty Start Date End Date Meredith Rapp MD [address] [place] [address] PCP - General 08/09/10 08/04/18 documented as of this encounter
--- OUTSIDE RECORDS SUMMARY | 2023-11-13 17:04 | XMS_ITS | Encounter Summary ---
Author Organization [facility] Address [address] [place] [address] Care Team Providers Care Team Truck Driver Name Role Phone Meredith Rapp MD Primary Care Provider [phone] Reason for Visit * Reason Comments Skin Exam Skin Check Encounter Details Date Type Department Care Team (Late st Contact Info) Description 10/12/2012 14:00 EDT Office Visit [facility] Dermatology 3rd Floor [address] [phone] Derek Fernando MD 111 [facility], [facility] 5 [place] [address] Psoriasis (Primary Dx) Social History Tobacco Use Types [...] :58 EST documented as of this encounter Patient Instructions * Patient Instructions* Keira Manuel MD - 10/12/2012 14:18 EDT For your scalp - Apply the betamethasone lotion daily during the weekdays - Apply the dovonex cream once to twice daily during the weekends (can switch this routine if the plaques improvement - steroid on the weekend, dovonex during the weekdays) documented in this encounter Ordered Prescriptions Prescription Sig Dispensed Refills Start Date End Da te calcipotriene (DOVONEX) 0.005 % cream Apply topically once to twice daily to affected areas. 60 g 11 10/12/2012 08/06/2017 betamethasone dipropionate 0.05 % lotion Apply topically 2 times daily. Do not apply to face, armpit or groin. 1 Bottle 3 10/12/2012 08/06/2017 documented in this encounter Progress Notes * Franci Hull - 10/12/2012 1355 EDT Review of Systems Constitutional: Negative for [...] Franci Hull 10/12/2012 13:55 Derek Fernando MD * Keira Manuel MD - 10/12/2012 1351 EDT Dermatology Outpatient Visit Note SUBJECTIVE Chief Complaint Patient presents with ??? Skin Exam Skin Check Problem List 1. Psoriasis, plaque type with psoriatic arthritis - on Enbrel, methotrexate 15 mg per week (6 tablets), clobetasol solution History of Present Illness: Nina Boothe is a 42 y.o. female with psoriasis and psoriatic arthritis who presents toclinic today for yearly exam. Last seen in clinic 09/2011, at which time the patient was recommendedto continue on methotrexate, as well as starting clobetasol solution for stubborn psoriatic plaquesover the scalp. Since then her methotrexate has been decreased to 6 tablets weekly (down from 9), and she has started on Enbrel in the last three months. On this combination she reports that the cutaneous component of her psoriasis has been mostly resolved, [...] pain is also well controlled on Enbrel. She has no other concerns today. Review of Systems: Pertinent positives as noted above in progress notes section and all others are negative. Pt's past medical, family, and social history have been reviewed as above. Meds: Pt has a current medication list which includes the following prescription(s): methotrexate, folic acid, etanercept, loratadine- pseudoephedrine, multivitamins with minerals, naproxen, clobetasol, salicylic acid, acetaminophen, atenolol, and triamcinolone. OBJECTIVE VS: [...] a few minimally scaly, well-demarcated pink plaques. Therewere no lesions worrisome for malignancy on this exam. The remainder of the exam of other sites examined is normal. Labs: CBC: Lab Results Component Value [...] on methotrexate and Enbrel, which are managed byher Curator [employer] Dr. Hernandez. 3. For scalp psoriasis, discussed [...] refills given). Can alternate this routine if plaquesimprove. 4. Return to clinic in 1 year, sooner as needed. Keira Manuel MD 10/12/2012 13:51 Attestation Statement: I saw and examined the patient with the resident/fellow. I agree with the findings and plan of care documented in the resident's/fellow's note. DEREK FERNANDO MD Dermatology [facility] documented in this encounter Miscellaneous Notes * Scanned Note-Null - VETERINARY LABORATORY DIAGNOSTICIAN, SCAN 2 - 10/16/2012 0845 EDT documented in this encounter Plan of Treatment Upcoming Encounters Date Type Department Care Team (Late st Contact Info) Description 11/24/2023 10:00 EDT Telemedicine [facility] Rheumatology & Immunology - [address] [phone] Harsh Malloy, DISTANCE EDUCATION COORDINATOR 111 [facility], [address] [place] [phone] documented as of this encounter Visit Diagnoses Diagnosis Psoriasis- Primary Other psoriasis documented in this encounter Care Teams Team Truck Driver Relationship Specialty Start Date End Date Meredith Rapp MD [address] [place] [phone] PCP - General 08/09/10 08/04/18 documented as of this encounter
--- OUTSIDE RECORDS SUMMARY | 2023-11-13 17:05 | XMS_ITS | Encounter Summary ---
Author Organization [facility] Address [address] [place] [address] Care Team Providers Care Silver Miner Blasting Name Role Phone Unknown, Provider Primary Care Provider [phone] Encounter Details Date Type Department Care Team (Late st Contact Info) Description 10/28/2006 Results Only [facility] Family Medicine [address] [address] Meredith Rapp MD [address] [place] [phone] Social History Tobacco Use Types Packs/Day Years Used Date Smoking Tobacco: Never Assessed Sex and Gender Information Value Date Recorded Sex Assigned at Female 06/29/2019 10:58 EST Gender Identity Female 06/29/2019 10:58 EST Sexual Orientation Straight 06/29/2019 10 :58 EST documented as of this encounter Plan of Treatment Upcoming Encounters Date Type Department Care Team (Late st Contact Info) Description 11/24/2023 10:00 EDT Telemedicine [facility] Rheumatology & Immunology - [facility] [address] [place], [place] [address] Harsh Malloy NP 111 [facility], [address] [place] [phone] documented as of this encounter Procedures Procedure Name Priority Date/Time Associated Diagnosis Comments CYTOPATHOLOGY Routine 10/28/2006 0:00 EDT documented in this encounter Results * CYTOPATHOLOGY (10/28/2006 0:00 EDT) Pathology Report: CYTOPATHOLOGY REPORT Reports generated via electronic interface contain original data; however they are lacking the format of the original report. Caution should be taken when reading/interpreti ng unformatted reports. Name: ? REILLY HUI ? Accession #: ? [id number] : ? 1970 (Age: 36) ??F ?Collect Date: ? 10/28/2006 Location: ? [facility] ? Receive Date: ? 10/31/2006 Provider: ?MEREDITH RAPP MD Copy to: ? Specimen/Source: ?ThinPrep Pap Test, Endocervix, processed on Celect ThinPrep Imaging System, with manual evaluation Last Menstrual Period: ? 10/11/06 Other: ? HPVA - HPV testing requested if ASC-US on the current ThinPrep Pap test. ? SPECIMEN ADEQUACY ? Satisfactory for Evaluation - transformation zone component present GENERAL CATEGORIZATION ? Negative for Intraepithelial Lesion or Malignancy ? Document reviewed and electronically signed by: ? SAMUEL Pepe(ASCP) ? Report Date: ??11/07/2006 09:13 End of Report [facility] 10/28/2006 10/31/2006 Meredith Rapp MD PATHOLOGY ORDERABLES [facility] [address] [place] [address] documented in this encounter Visit Diagnoses Not on filedocumented in this encounter Care Teams Silver Miner Blasting Relationship Specialty Start Date End Date Unknown, Provider, PCP - General 08/08/09 08/08/10 documented as of this encounter
--- OUTSIDE RECORDS SUMMARY | 2023-11-13 17:05 | XMS_ITS | Encounter Summary ---
Author Organization [facility] Address [address] [place] [address] Care Team Providers Care Him Specialists Name Role Phone Unknown, Provider Primary Care Provider [phone] Encounter Details Date Type Department Care Team (Late st Contact Info) Description 06/15/2004 Results Only [facility] - Maple conversion [address] [place] [address] Emily Curry NP [address] [place] [phone] Social History Tobacco Use Types Packs/Day Years [...] Contact Info) Description 11/24/2023 10:00 EDT Telemedicine [facility] Rheumatology & Immunology - [address] [address] Harsh Malloy NP 111 [facility], Level [address] [place] [phone] documented as of this encounter Procedures Procedure Name Priority Date/Time Associated Diagnosis Comments CYTOPATHOLOGY Routine 06/15/2004 0:00 EST documented in this encounter Results * CYTOPATHOLOGY (06/15/2004 0:00 EST) Pathology Report: CYTOPATHOLOGY REPORT Reports generated via electronic interface contain original data; however they are lacking the format of the original report. Caution should be taken when reading/interpreti ng unformatted reports. Name: ? REILLY HUI ? Accession #: ? [id number] : ? 1970 (Age: 33) ??F ?Collect Date: ? 06/15/2004 Location: ? [facility] ? Receive Date: ? 06/19/2004 Provider: ?EMILY CURRY NP Copy to: ? Specimen/Source: ?ThinPrep Pap Test, Cervix/Endocervix Last Menstrual Period: ? 05/30/04 Hormonal/Contracep tive Status: ? Tubal ligation Other: ? HPVA - HPV testing requested if ASC-US on the current ThinPrep Pap test. ? SPECIMEN ADEQUACY ? Satisfactory for Evaluation - transformation zone component present GENERAL CATEGORIZATION ? Negative for Intraepithelial Lesion or Malignancy ? Document reviewed and electronically signed by: ? HAYDEE Grande(ASCP) ? Report Date: ??06/21/2004 11:37 End of Report [facility] 06/15/2004 06/19/2004 Emily J [place] WAREHOUSE CONSULTANT PATHOLOGY ORDERABLES [facility] [address] [place] [address] documented in this encounter Visit Diagnoses Not on filedocumented in this encounter Care Teams Him Specialists Relationship Specialty Start Date End Date Unknown, Provider, PCP - General 08/08/09 08/08/10 documented as of this encounter
--- OUTSIDE RECORDS SUMMARY | 2023-11-13 17:05 | XMS_ITS | Encounter Summary ---
Author Organization [facility] Address [address] [place] [address] Care Team Providers Care First Grade Teacher Name Role Phone Unavailable Primary Care Provider Unavailabl e Encounter Details Date Type Department Care Team (Late st Contact Info) Description 08/01/2009 Results Only [facility] Family Medicine [address] [address] Meredith Rapp MD [address] [place] [address] Social History Tobacco Use Types Packs/Day Years [...] [facility] Rheumatology & Immunology - [facility] [address] [place], [place] [address] Harsh Malloy NP [address] [facility], Level [address] [place] [phone] documented as of this encounter Procedures Procedure Name Priority Date/Time Associated Diagnosis Comments CYTOPATHOLOGY Routine 08/01/2009 0:00 EDT documented in this encounter Results * CYTOPATHOLOGY (08/01/2009 0:00 EDT) Pathology Report: CYTOPATHOLOGY REPORT ? Reports generated via electronic interface contain original data; ? however they are lacking the format of the original report. ? Caution should be taken when reading/interpreti ng unformatted reports. ? Name: ? REILLY HUI ? Accession #: ? [id number] ? : ? 1970 (Age: 38) ??F ?Collect Date: ? 08/01/2009 ? Location: ? [facility] ? Receive Date: ? 08/02/2009 ? Provider: ?MEREDITH FINE MD ? Copy to: ? Specimen/Source: ?Pap Test, Endocervix, ThinPrep Imaging System with ? manual evaluation ? Last Menstrual Period: ? 03.15.10 ? Other: ? HPVA - HPV testing requested if ASC-US on the current ThinPrep Pap test. ? SPECIMEN ADEQUACY ? Satisfactory for Evaluation ? - transformation zone component present ? GENERAL CATEGORIZATION ? Negative for Intraepithelial Lesion or Malignancy ? Document reviewed and electronically signed by: ? Ngoc Colemanlogg, CT(ASCP) ? Report Date: ??08/08/2009 10:17 ? End of Report ? [facility] 08/01/2009 08/02/2009 Meredith Rapp MD PATHOLOGY ORDERABLES [facility] [address] [place] [address] documented in this encounter Visit Diagnoses Not on filedocumented in this encounter
--- OUTSIDE RECORDS SUMMARY | 2023-11-13 17:05 | XMS_ITS | Encounter Summary ---
Author Organization [facility] Address [address] [place] [address] Care Team Providers Care Tube Rebuilder Name Role Phone Unknown, Provider Primary Care Provider Encounter Details Date Type Department Care Team (Late st Contact Info) Description 05/24/1999 Results Only [facility] - Maple conversion [address] [place] [address] Kendal Wu MD [address] [place] [address] [address] Social History Tobacco Use Types Packs/Day Years [...] Telemedicine [facility] Rheumatology & Immunology - [address] [phone] Harsh Malloy NP 111 [facility], [facility] 5 [place] [phone] documented as of this encounter Procedures Procedure Name Priority Date/Time Associated Diagnosis Comments CYTOPATHOLOGY Routine 05/24/1999 7:29 EST documented in this encounter Results * CYTOPATHOLOGY (05/24/1999 7:29 EST) Pathology Report: CYTOPATHOLOGY REPORT Reports generated via electronic interface contain original data; however they are lacking the format of the original report. Caution should be taken when reading/interpreti ng unformatted reports. Name: ? REILLY HUI ? Accession #: ? [id number] : ? 1970 (Age: 28) ??F ?Collect Date: ? 05/24/1999 Location: ?Receive Date: ? 05/24/1999 Provider: ?KENDAL WU MD Copy to: ?KENDAL WU MD ? Specimen/Source: ?Pap Smear (One Slide) Last Menstrual Period: ? GYNECOLOGIC ??CYTOPATHOLOGY ??REPORT Name: REILLY HUI ? [facility] : 1970 ?? 28Y F ?Client ID: [id number] #: [id number] ? Clinician: KENDAL WU MD ?? Location: [facility] ??Copy to: ?? Specimen: ?Pap Smear (One [...] Signed By: ? HAYDEE Khanna(ASCP) ? Report Date: ?? 05/24/1999 [facility] Archived Tests - Final Diagnosis Text Field: Clinical History : ;Norplant. Spotting. ? Document reviewed and electronically signed by: ? Conversion ? Report Date: ??05/24/1999 00:00 End of Report [facility] 05/24/1999 7:29 EST 05/24/1999 7:30 EST Kendal Wu MD PATHOLOGY ORDERABLES [facility] [address] [place] [address] documented in this encounter Visit Diagnoses Not on filedocumented in this encounter Care Teams Tube Rebuilder Relationship Specialty Start Date End Date Unknown, Provider, PCP - General 08/08/09 08/08/10 documented as of this encounter
--- OUTSIDE RECORDS SUMMARY | 2023-11-13 17:05 | XMS_ITS | Encounter Summary ---
Author Organization [facility] Address [address] [place] [address] Care Team Providers Care Contact Center Professional Name Role Phone Meredith Rapp MD Primary Care Provider [phone] Reason for Visit * Reason Comments Joint Pain feet, elbows, hands, knees fills with fluid Encounter Details Date Type Department Care Team (Late st Contact Info) Description 10/24/2010 13:00 EDT Office Visit [facility] Rheumatology & Immunology - [address] [phone] Etelvina Hernandez MD 111 [facility], Level [address] [place] [address] Psoriatic arthritis ([facility]) ([facility]); Encounter for long-term (current) use of [...] * Patient Instructions* Etelvina Hernandez MD - 10/24/2010 13:52 EDT Start [...] Tab by mouth daily. 90 Tab 3 10/24/2010 12/28/2010 methotrexate 2.5 mg tablet Take 5 Tabs by mouth once a week. 60 Tab 3 10/24/2010 12/28/2010 documented in this encounter Progress Notes * Etelvina Hernandez MD - 10/24/2010 1433 EDT Images from the original note were not included. This office note has been dictated. documented in this encounter Consult Notes * Etelvina Hernandez MD - 10/26/2010 0757 EDT [...] have been swollen but not painful. She wasnot treated with any other special medications for arthritis at that time. In the last 2 years she has developed pain and swelling in her hands, predominantly the right more than left hand; bilateral toe and foot swelling with sausage toes; mild bilateral elbow swelling. Her whole feet hurt. She has no pain in her shoulders, hips or back. In the morning, pain is much worse and it is hard for her to walk. She has morning stiffness lasting 3 hours. The patient does have a history of psoriasis for many years since her early teens, treated only with topical medications. She has rash on her elbows, scalp, ears abdomen and inguinal area. She has been taking Tylenol as needed and Naprosyn as needed with some improvement, but it tends towear off quickly. MEDICATIONS: Tylenol as needed. Atenolol 50 mg daily. Benadryl 25 mg as needed. Naproxen 500 mg twice a day. Triamcinolone 0.1% cream twice a day as needed. ALLERGIES: ASPIRIN causes hives. 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 She lives with her and son, aged [...] is done and negative with the following exceptions:Hypertension, psoriasis, and the musculoskeletal symptoms as mentioned above. OBJECTIVE: No acute distress. Blood pressure 132/76, pulse 68, respiration 14. Weight 171 pounds, height 65-1/4 inches. Pain rating scale 3/10, no acute distress. Head and neck: Pupils equal and reactive, extraocular movements intact, sclerae clear, conjunctivae pink, mucous membranes moist, no oral ulcers, no cervical nodes. Lungs are clear. Heart [...] degree swelling with tenderness right fourth and fifthMCPs and right fifth PIP. Range of motion at the fingers of the right hand is reduced. Otherwise, the fingers and wrists were normal. The hips ranged well [...] I do not think she has juvenile idiopathic arthritis, but she may well have had juvenile [...] allergic rash, GI upset, stomatitis, bone marrow suppression, liver toxicity and pulmonary toxicity. The need to avoid excessive alcohol and to avoid sulfa antibiotics was reviewed. It is also teratogenic, but the patient has had a tubal ligation. The patient understands and is willing to try the medicine and knows it takes 8 weeks or more to take effect.A standing order for CBC, LFTs and creatinine to be done in 3 weeks, then on an [id number] basiswas given to the patient to do at home. I will let her know if there are any problems on her tests. Pamphlets on psoriatic arthritis, biological drugs, sulfasalazine and methotrexate were given to the patient to read. I went over the diagnosis of psoriatic arthritis and explained what it was to thepatient and answered her questions. In addition, I went over various options for therapy including s ulfasalazine, methotrexate, and biological drugs. She elected to try the methotrexate as it would help her rash as well as her joints. I also reviewed the possibility of surveillance liver biopsies with the patient. I told her it was somewhat controversial, and that after she has been on methotrexate for a time we can discuss it again, although we may ultimately choose not to order those. She will follow up with me in 2 months. Medication reconciliation performed. No barriers to learning. The patient verbalized understanding and agrees with the plan. Electronically Signed by Etelvina Hernandez MD 10/26/2010 07:57 Etelvina Hernandez MD - Etelvina Hernandez MD - [facility] Job ID: SM Doc ID: [id number] Ext Doc ID: [id number] cc: Meredith Rapp MD documented in this encounter Plan of Treatment Upcoming Encounters Date Type Department Care Team (Late st Contact Info) Description 11/24/2023 10:00 EDT Telemedicine [facility] Rheumatology & Immunology - [address] [address] Harsh Malloy NP 111 [facility], [address] [place] [address] documented as of this encounter Procedures Procedure Name Priority Date/Time Associated Diagnosis Comments CHEST PA AND LATERAL Routine 10/24/2010 14:10 EDT Encounter for long-term (current) use of other medications Psoriatic arthritis ([facility]) ([facility]) documented in this encounter Results * CCP ANTIBODIES (10/24/2010 14:20 EDT) [facility] CCP Antibodies 0.42 <5.01 U/ml LINDSAY MORGAN 10/24/2010 14:2 0 EDT 10/24/2010 14:41 EDT Etelvina Hernandez MD IMMUNOLOGY AND SEROL OGY ORDERABLES Performing Organization Address [facility] de Phone Number [facility] [address] [place] [address] * SED. RATE:WESTERGREN (10/24/2010 14:20 EDT) [facility] Sed. Rate Anibalergren 14 0 - 20 mm/hr [facility] Blood specimen (specimen) 10/24/2010 14:20 EDT 10/24/2010 14:41 EDT Etelvina Hernandez MD HEMATOLOGY & PF4 ORD ERABLES Performing Organization Address [facility] de Phone Number [facility] [address] [place] [address] * HEMAGRAM AND DIFFERENTIAL (10/24/2010 14:20 EDT) [facility] WBC 9.02 4.0 - 12.4 K/cmm [facility] RBC 4.87 3.86 - 5.04 M/cmm [facility] Hemoglobin 14.7 11.6 - 15.2 gm/dl [facility] HCT 43.2 34.9 - 44.4 % [facility] MCV 89 81 - 98 fl [facility] MCH 30.2 26.7 - 33.3 pg [facility] MCHC 34.1 32.1 - 35.9 gm/dl [facility] PLT 317 141 - 320 K/cmm [facility] RDW-CV 13.6 11.7 - 14.6 % [facility] % Neutrophils 69.1 45.5 - 79.7 % [facility] % Lymphocytes 19.9 15.0 - 46.8 % [facility] % Monocytes 8.0 1.8 - 12.0 % [facility] % Eosinophils 2.0 0.6 - 6.9 % [facility] % Basophils 1.0 0.2 - 1.4 % [facility] ABS Neutrophils 6.23 2.20 - 8.85 K/cmm [facility] ABS Lymphs 1.79 1.09 - 3.30 K/cmm [facility] ABS Monocytes 0.72 0.1 - 0.8 K/cmm [facility] ABS Eosinophils 0.18 0.03 - 0.61 K/cmm [facility] ABS Basophils 0.09 0.01 - 0.11 K/cmm [facility] Type of Diff: Automated [facility] Blood specimen (specimen) 10/24/2010 14:20 EDT 10/24/2010 14:41 EDT Etelvina Hernandez MD PACKAGES & DNA PROBE ORDERABLES Performing Organization Address City/State/[facility] [place] [facility] Co de Phone Number [facility] [address] [place] [address] * COMPREHENSIVE METABOLIC PANEL (CMP) (10/24/2010 14:20 EDT) Potassium 4.0 3.5 - 5.0 mEq/L [facility] Sodium 143 136 - 145 mEq/L [facility] Chloride 104 96 - 110 mEq/L [facility] CO2 28 24 - 32 mEq/L [facility] Total Alkaline Phosphatase 96 38 - 126 U/L [facility] Bilirubin, Total 0.7 0.2 - 1.3 mg/dl [facility] AST 18 15 - 46 U/L [facility] ALT 14 9 - 52 U/L [facility] Albumin 4.5 3.4 - 4.9 g/dl [facility] Total Protein 7.7 6.5 - 8.3 g/dl [facility] Creatinine 0.80 0.7 - 1.5 mg/dl [facility] GFR, Calculated >60 ml/min/1.7 3m2 [facility] BUN 16 10 - 26 mg/dl [facility] Calcium 9.2 8.5 - 10.5 mg/dl [facility] Calculated Calcium 9.1 8.5 - 10.5 mg/dl [facility] Glucose, Serum 99 70 - 100 mg/dl [facility] Fasting? No [facility] Blood specimen (specimen) 10/24/2010 14:20 EDT 10/24/2010 14:41 EDT Etelvina Hernandez MD CHEMISTRY & BLOOD GA S ORDERABLES [facility] [address] [place] [address] * CHEST PA AND LATERAL (10/24/2010 14:10 EDT) Anatomical Region Laterality Modality Other 10/24/2010 14:1 0 EDT 10/24/2010 16:50 EDT Narrative 10/24/2010 16:50 EDT CHEST PA AND LAT ?? Oct 24, 2010 02:10:00 PM History: ??V58.69-ENCOUNTER FOR LONG-TERM (CURRENT) USE OF OTHER MEDICATIONS-I9 696.0-PSORIATIC ARTHRITIS-I9 baseline starting methotrexate Comparisons: none Findings: Two views of the chest were performed. ??Dual-energy technique with reconstructions in normal, soft tissue and bone windows was used. The lungs are clear and there is no evidence of pleural disease. The cardiac silhouette and pulmonary vascularity are normal. The skeleton is unremarkable for age. Impression: Normal chest I have personally reviewed the images and the above interpretation and agree with the findings. Procedure Note Yair Fitch MD - 10/24/2010 CHEST PA AND LAT Oct 24, 2010 02:10:00 PM History: V58.69-ENCOUNTER FOR LONG-TERM (CURRENT) USE OF OTHER MEDICATIONS-I9 696.0-PSORIATIC ARTHRITIS-I9 baseline starting methotrexate Comparisons: none Findings: Two views of the chest were performed. Dual-energy technique with reconstructions in normal, soft tissue and bone windows was used. The lungs are clear and there is no evidence of pleural disease. The cardiac silhouette and pulmonary vascularity are normal. The skeleton is unremarkable for age. Impression: Normal chest I have personally reviewed the images and the above interpretation and agree with the findings. Etelvina Hernandez MD IMG DIAGNOSTIC IMAGI NG ORDERABLES documented in this encounter Visit Diagnoses Diagnosis Psoriatic arthritis ([facility]) Psoriatic arthropathy Encounter for long-term (current) use of other medications documented in this encounter Discontinued Medications Medication Sig Discontinue Reason Start Date End Da te Naproxen Sodium (NAPRELAN CR) 500 mg TM24 Take 500 mg by mouth 2 times daily. Error 10/24/2010 10/24/2010 documented as of this encounter Historical Medications * This list may reflect changes made after this encounter. Medication Sig Dispensed Refills Start Date End Date naproxen (NAPROSYN) 500 mg tabletIndications:Psoria tic arthritis ([facility]),Encounter for long-term (current) use of other medications Take 500 mg by mouth as needed. 12/28/2010 02/19/2012 triamcinolone (KENALOG) 0.1 % creamIndications:Psoriat ic arthritis ([facility]),Encounter for long-term (current) use of other medications Apply topically 2 times daily as needed. 08/06/2017 diphenhydrAMINE (BENADRYL) 25 mg capsuleIndications:Psori atic arthritis ([facility]),Encounter for long-term (current) use of other medications Take 25 mg by mouth every 4 hours as needed. 10/24/2010 02/19/2012 acetaminophen (TYLENOL) 500 mg tabletIndications:Psoria tic arthritis ([facility]),Encounter for long-term (current) use of other medications Take 1,000 mg by mouth every 6 hours. 07/30/2011 Naproxen Sodium (NAPRELAN CR) 500 mg TM24 Take 500 mg by mouth 2 times daily. 10/24/2010 10/24/2010 atenolol (TENORMIN) 50 mg tabletIndications:Psoria tic arthritis ([facility]),Encounter for long-term (current) use of other medications Take 50 mg by mouth daily. 04/18/2014 added in this encounter Care Teams Contact Center Professional Relationship Specialty Start Date End Date Meredith Rapp MD [address] [place] [address] PCP - General 08/09/10 08/04/18 documented as of this encounter
--- OUTSIDE RECORDS SUMMARY | 2023-11-13 17:05 | XMS_ITS ---
Author Organization [facility] Address [address] [place] [address] Care Team Providers Care Retirement Benefits Specialist Name Role Phone Kayleigh Mallory Primary Care Provider [phone] Rheumatology Status:Enrolled (Active) Start date:10/22/2018 Enrollment date:10/22/2018 Current support & services provided:Clinical Management, Refill Management Linked medications:adalimumab (Active) Linked problems:Psoriasis with arthropathy ([facility]) (Active) Continued Care and Services Coordination
--- OUTSIDE RECORDS SUMMARY | 2023-11-13 17:05 | XMS_ITS | Encounter Summary ---
Author Organization [facility] Address [address] [place] [address] Care Team Providers Care Supervisor Blueprinting And Photocopy Name Role Phone Meredith Rapp MD Primary Care Provider [phone] Encounter Details Date Type Department Care Team (Late st Contact Info) Description 10/24/2010 Phlebotomy Only [address] [phone] Cloth Laminating Supervisor, Outpatient Psoriatic arthritis ([facility] ([facility]); Encounter for long-term (current) use of other [...] Info) Description 11/24/2023 10:00 EDT Telemedicine [facility] Rheumatology & Immunology [address] [phone] Harsh Malloy NP 111 [facility], [facility] 5 [place] [phone] documented as of this encounter Procedures Procedure Name Priority Date/Time Associated Diagnosis Comments CCP ANTIBODIES Routine 10/24/2010 14:20 EDT Psoriatic arthritis ([facility]) ([facility]) Encounter for long-term (current) use of other medications SED RATE Routine 10/24/2010 14:20 EDT Psoriatic arthritis ([facility]) ([facility]) Encounter for long-term (current) use of other medications COMPLETE BLOOD COUNT AND DIFFERENTIAL Routine 10/24/2010 14:20 EDT Psoriatic arthritis ([facility]) ([facility]) Encounter for long-term (current) use of other medications COMPREHENSIVE METABOLIC PANEL (CMP) Routine 10/24/2010 14:20 EDT Psoriatic arthritis ([facility]) ([facility]) Encounter for long-term (current) use of other medications documented in this encounter Results * CCP ANTIBODIES (10/24/2010 14:20 EDT) Pathologist [facility] CCP Antibodies 0.42 <5.01 U/ml [facility] 10/24/2010 14:2 0 EDT 10/24/2010 14:41 EDT Etelvina Hernandez MD IMMUNOLOGY AND SEROL OGY ORDERABLES Performing Organization Address [facility] Co de Phone Number [facility] [address] [place] [address] * SED. RATE:KENAN (10/24/2010 14:20 EDT) [facility] Sed. Rate Westergren 14 0 - 20 mm/hr [facility] Blood specimen (specimen) 10/24/2010 14:20 EDT 10/24/2010 14:41 EDT Etelvina Hernandez MD HEMATOLOGY & PF4 ORD ERABLES Performing Organization Address [facility] Co de Phone Number [facility] [address] [place] [address] * HEMAGRAM AND DIFFERENTIAL (10/24/2010 14:20 EDT) Pathologist [facility] WBC 9.02 4.0 - 12.4 K/cmm [facility] [...] 14.6 % [facility] % Neutrophils 69.1 45.5 - 79.7 % [facility] % Lymphocytes 19.9 15.0 - 46.8 % [facility] % Monocytes 8.0 1.8 - [...] Hernandez MD PACKAGES & DNA PROBE ORDERABLES [facility] [address] [place] [address] * COMPREHENSIVE METABOLIC PANEL (CMP) (10/24/2010 14:20 EDT) Pathologist [facility] Potassium 4.0 3.5 - 5.0 mEq/L [facility] [...] BLOOD GA S ORDERABLES Performing Organization Address City/State/[facility] Co de Phone Number [facility] [address] [place] [address] documented in this encounter Visit Diagnoses Diagnosis Psoriatic arthritis ([facility]) Psoriatic arthropathy Encounter for long-term (current) use of other medications documented in this encounter Care Teams Supervisor Blueprinting And Photocopy Relationship Specialty Start Date End Date Meredith Rapp MD [address] [place] [address] PCP - General 08/09/10 08/04/18 documented as of this encounter
--- OUTSIDE RECORDS SUMMARY | 2023-11-13 17:05 | XMS_ITS | Encounter Summary ---
Author Organization [facility] Address [address] [place] [address] Care Team Providers Care Stenocaptioner Name Role Phone Unknown, Provider Primary Care Provider Encounter Details Date Type Department Care Team (Late st Contact Info) Description 03/17/2003 Results Only [facility] - Maple conversion [address] [place] [address] Emily Curry NP [address] [place] [phone] Social History Tobacco Use Types Packs/Day Years [...] [facility]ology & Immunology - [address] [address] Harsh Malloy NP 111 [facility], [address] 5 [place] [phone] documented as of this encounter Procedures Procedure Name Priority Date/Time Associated Diagnosis Comments CYTOPATHOLOGY Routine 03/17/2003 0:00 EST documented in this encounter Results * CYTOPATHOLOGY (03/17/2003 0:00 EST) Pathology Report: CYTOPATHOLOGY REPORT Reports generated via electronic interface contain original data; however they are lacking the format of the original report. Caution should be taken when reading/interpreti ng unformatted reports. Name: ? REILLY HUI ? Accession #: ? [id number] : ? 1970 (Age: 32) ??F ?Collect Date: ? 03/17/2003 Location: ? [facility] ? Receive Date: ? 03/21/2003 Provider: ?EMILY CURRY NP Copy to: ? Specimen/Source: ?ThinPrep Pap Test, Cervix/Endocervix Last Menstrual Period: ? 03/10/03 Other: ? [...] Report Date: ??03/25/2003 12:45 End of Report [facility] 03/17/2003 03/21/2003 Emily Curry NP PATHOLOGY ORDERABLES [facility] [address] [place] [address] documented in this encounter Visit Diagnoses Not on filedocumented in this encounter Care Teams Stenocaptioner Relationship Specialty Start Date End Date Unknown, Provider, PCP - General 08/08/09 08/08/10 documented as of this encounter
[2023-11-13 21:06] LABS: HCT 42.3 % (36.0-46.0); HGB 14.9 g/dL (11.2-15.7); MCH 32.7 pg (27.0-33.0); MCHC 35.2 % (32.0-36.0); MCV 93 fL (80-95); MPV 9.8 fL (8.0-11.0); Platelet Count 285 10^3/uL (130-400); RBC 4.55 10^6/uL (3.93-5.22); RDW 12.1 % (11.7-14.6); RDW-SD 41.6 fL; WBC 7.23 10^3/uL (4.4-10.8)
[2023-11-13 21:21] LABS: ALT 23 U/L (14-59); AST 18 U/L (15-37); Albumin 4.1 g/dL (3.4-5.0); Alkaline Phosphatase 92 U/L (46-116); Anion Gap 7.8 mmol/L (3-11); BUN 11 mg/dL (7-18); Bilirubin, Total 0.56 mg/dL (0.2-1.0); CO2 28.2 mmol/L (21.0-32.0); CREATININE 0.9 mg/dL (0.55-1.02); Calcium 8.7 mg/dL (8.5-10.1); Chloride 102 mmol/L (98-107); Glucose 96 mg/dL (74-106); Potassium 3.7 mmol/L (3.5-5.1); Sodium 138 mmol/L (136-145); Total Protein 7.2 g/dL (6.4-8.2)
== END 2023-11-13 16:58 | disposition home or self-care (01) ==
LOC: NCHCN 16:57
PROVIDERS: PCP Nurse Practitioner Family; Visit Provider Nurse Practitioner Family
DX: Z00.00 Encounter for general adult medical examination without abnormal findings (principal); I10 Essential (primary) hypertension
CPT/HCPCS: 80053; 85027

== ENCOUNTER 2024-03-22 16:09 | Outpatient (REF) | payer BC, SELFPAY ==
--- OUTSIDE RECORDS SUMMARY | 2024-03-22 16:12 | XMS_ITS | Encounter Summary ---
Author Organization [facility] Address [address] [place] [address] Care Team Providers Care Shift Stacker Name Role Phone Kayleigh Mallory WILFREDO Primary Care Provider [phone] Encounter Details Date Type Department Care Team (Latest Contact Info) Description 06/20/2023 Specialty Pharmacy [facility] [address] [place] [address] [phone] Matthew Kapadia [facility] Refill Coordination Outreach for Rheumatology [...] 11/28/2019 Verbally Threaten Not on file 11/28/2019 Comments No Sex and Gender Information Value Date Recorded Sex Assigned at Female 06/29/2019 10:58 EST Legal Sex Female 18:23 EST Gender Identity Female 06/29/2019 10:58 EST Sexual Orientation Straight 06/29/2019 10 :58 EST documented as of this encounter Functional Status * Because of a physical, mental, or emotional condition, does this person have difficulty doing errands alone such as visiting a doctor's office or shopping? Answer Date of Assessment Author No 02/02/2018 11:27 EDT documented as of this encounter Mental Status * Because of a physical, mental, or emotional condition, does this person have serious difficulty concentrating, remembering, or making decisions? Answer Entry Date Author No 02/02/2018 11:27 EDT documented in this encounter Plan of Treatment Not on file documented as of this encounter Visit Diagnoses Not on filedocumented in this encounter Care Teams Shift Stacker Relationship Specialty Start Date End Date Kayleigh Mallory FNP [address] [address] PCP - General 02/04/19 documented as of this encounter
--- OUTSIDE RECORDS SUMMARY | 2024-03-22 16:12 | XMS_ITS | Encounter Summary ---
Author Organization Health system Address [address] [place] [address] Care Team Providers Care Machine Cutter Name Role Phone Kayleigh Mallory WILFREDO Primary Care Provider [phone] Encounter Details Date Type Department Care Team (Latest Contact Info) Description 09/15/2023 Specialty Pharmacy [facility] [address] [place] [phone] Matthew Kapadia [facility] Refill Coordination Outreach for Rheumatology Social History [...] on filedocumented in this encounter Care Teams Machine Cutter Relationship Specialty Start Date End Date Kayleigh Mallory FNP [address] [address] PCP - General 02/04/19 documented as of this encounter
--- OUTSIDE RECORDS SUMMARY | 2024-03-22 16:12 | XMS_ITS | Encounter Summary ---
Author Organization [facility] Address [address] [place] [address] Care Team Providers Care Cupola Tapper Name Role Phone Kayleigh Mallory WILFREDO Primary Care Provider [phone] Encounter Details Date Type Department Care Team (Latest Contact Info) Description 04/29/2023 Specialty Pharmacy [facility] [address] [place], [place] [phone] Matthew Kapadia [facility] Refill Coordination Outreach for Rheumatology Social [...] on filedocumented in this encounter Care Teams Cupola Tapper Relationship Specialty Start Date End Date Kayleigh Mallory FNP 26 [facility] [address] [place] [address] PCP - General 02/04/19 documented as of this encounter
--- OUTSIDE RECORDS SUMMARY | 2024-03-22 16:12 | XMS_ITS | Encounter Summary ---
Author Organization [facility] Address [address] [place] [address] Care Team Providers Care Independent Agent Music Education Name Role Phone Kayleigh Mallory WILFREDO Primary Care Provider [phone] Reason for Visit * Reason Onset Date Comments Labs Only 11/24/2023 Encounter Details Date Type Department Care Team (Late st Contact Info) Description 11/24/2023 Telephone [facility] Rheumatology & Immunology - [address] [phone] Harsh Malloy, SHORT STORY WRITER 111 [facility], [facility] 5 [place] [address] Labs Only Social History Tobacco [...] 02/02/2018 11:27 EDT documented in this encounter Miscellaneous Notes * Telephone Encounter - Harsh Malloy NP - 11/24/[address] [facility] they will send labs- cbc and cmp documented in this encounter Plan of Treatment Not on file documented as of this encounter Visit Diagnoses Not on filedocumented in this encounter Care Teams Independent Agent Music Education Relationship Specialty Start Date End Date Kayleigh Mallory FNP [address] [phone] PCP - General 02/04/19 documented as of this encounter
--- OUTSIDE RECORDS SUMMARY | 2024-03-22 16:12 | XMS_ITS | Encounter Summary ---
Author Organization [facility] Address [address] [place] [address] Care Team Providers Care Mold Finisher Name Role Phone Kayleigh Mallory WILFREDO Primary Care Provider [phone] Encounter Details Date Type Department Care Team (Late st Contact Info) Description 10/14/2022 Specialty Pharmacy [facility] Ambulatory Pharmacy - [facility] [address] [place] [address] Yamile Plaza RPH Social History Tobacco Use [...] on filedocumented in this encounter Care Teams Mold Finisher Relationship Specialty Start Date End Date Kayleigh Mallory FNP 26 [facility] [address] [place] [address] PCP - General 02/04/19 documented as of this encounter
--- OUTSIDE RECORDS SUMMARY | 2024-03-22 16:12 | XMS_ITS | Encounter Summary ---
Author Organization [facility] Address [address] [place] [address] Care Team Providers Care Hammer Shop Supervisor Name Role Phone Kayleigh Mallory WILFREDO Primary Care Provider [phone] Reason for Visit * Reason Onset Date Comments Appointment Related 11/27/2023 Encounter Details Date Type Department Care Team (Late st Contact Info) Description 11/27/2023 Telephone [facility] Rheumatology & Immunology - [address] [address] Harsh Malloy, ANIMAL SITTER 111 [facility], [facility] 5 [place] [address] Appointment Related Social History Tobacco Use Types Packs/Day Years [...] encounter Miscellaneous Notes * Telephone Encounter - Megan Rios - 11/27/2023 1428 EDT Called patient and left voicemail for patient to call back to schedule 6-8 month follow up with Harsh for PsA around Apr 2024. Requested patient call back when convenient to schedule. ----- Message from Harsh Malloy NP sent at 11/26/2023 17:37 EDT ----- Regarding: RE: NO Disposition/Check out instructions [facility] 6-8 month f/u in person. Harsh ----- Message ----- From: Megan Rios Sent: 11/26/2023 17:25 EDT To: Harsh Malloy NP Subject: FW: NO Disposition/Check out instructions fr# Please clarify whether or not patient needs a follow up appointment. Thank you! Megan ----- Message ----- From: Marleny Rodriguez Sent: 11/25/2023 8:32 EDT To: Shaq Rios Subject: NO Disposition/Check out instructions from 7# Please verify follow up instructions. Thank you documented in this encounter Plan of Treatment Not on file documented as of this encounter Visit Diagnoses Not on filedocumented in this encounter Care Teams Hammer Shop Supervisor Relationship Specialty Start Date End Date Kayleigh Mallory FNP [address] [place] [address] PCP - General 02/04/19 documented as of this encounter
--- OUTSIDE RECORDS SUMMARY | 2024-03-22 16:12 | XMS_ITS | Encounter Summary ---
Author Organization [facility] Address [address] [place] [address] Care Team Providers Care Medical Assisting Instructor Name Role Phone Kayleigh Mallory WILFREDO Primary Care Provider [phone] Encounter Details Date Type Department Care Team (Latest Contact Info) Description 05/23/2023 Specialty Pharmacy [facility] Specialty Pharmacy [address] [place], [place] [phone] Matthew Kapadia [facility] Refill Coordination Outreach for Rheumatology, Clinical Follow-up [...] on filedocumented in this encounter Care Teams Medical Assisting Instructor Relationship Specialty Start Date End Date Kayleigh Mallory FNP [address] [phone] PCP - General 02/04/19 documented as of this encounter
--- OUTSIDE RECORDS SUMMARY | 2024-03-22 16:12 | XMS_ITS | Encounter Summary ---
Author Organization [facility] Address [address] [place] [address] Care Team Providers Care Compressor Mechanic Bus Name Role Phone Kayleigh Mallory WILFREDO Primary Care Provider [phone] Encounter Details Date Type Department Care Team (Latest Contact Info) Description 03/02/2024 Specialty Pharmacy [facility] Specialty Pharm[facility] [address] [place] [phone] Edna Hernandez RPH Refill Coordination Outreach for Rheumatology Social History [...] on filedocumented in this encounter Care Teams Compressor Mechanic Bus Relationship Specialty Start Date End Date Kayleigh Mallory FNP [address] [address] PCP - General 02/04/19 documented as of this encounter
--- OUTSIDE RECORDS SUMMARY | 2024-03-22 16:12 | XMS_ITS | Encounter Summary ---
Author Organization [facility] Address [address] [place] [address] Care Team Providers Care X Ray Physician Name Role Phone Kayleigh Mallory WILFREDO Primary Care Provider [phone] Encounter Details Date Type Department Care Team (Late st Contact Info) Description 11/27/2022 Orders Only [facility] [address] [place] [address] Augustina Rivera, RN [address] [place] [address] Social History Tobacco Use Types Packs/Day Years [...] on filedocumented in this encounter Care Teams X Ray Physician Relationship Specialty Start Date End Date Kayleigh Mallory FNP [address] [phone] PCP - General 02/04/19 documented as of this encounter
--- OUTSIDE RECORDS SUMMARY | 2024-03-22 16:12 | XMS_ITS | Encounter Summary ---
Author Organization [facility] Address [address] [place] [address] Care Team Providers Care Industrial Services Worker Name Role Phone Kayleigh Mallory WILFREDO Primary Care Provider [phone] Reason for Visit * Reason Onset Date Comments Prior Auth, Medication 02/02/2024 Encounter Details Date Type Department Care Team (Late st Contact Info) Description 02/02/2024 Telephone [facility] Rheumatology & Immunology - [facility] [address] [place], [place] [phone] Harsh Malloy, CHEESE MAKER 111 [facility], Level [address] [place] [address] Prior Auth, Medication Social History [...] encounter Miscellaneous Notes * Telephone Encounter - Alyse Hooper - 02/02/2024 1643 EDT Prior Authorization Approval Medication: Humira 40mg/0.4ml pen, Inject 0.4mL into the skin every 14 days Insurance Name:[employer] Insurance Type: Commercial Approval Dates: 02/05/24-05/07/23 Authorization Number: [id number] [facility] YES Route to [facility] (if applicable): No Additional Info/Other Notes: Approval letter in scans Prior Authorization Submission Process - Urgent Re-Auth Medication: Humira 40mg/0.4ml pen, Inject 0.4mL into the skin every 14 days Insurance: [employer] Insurance Type: Commercial Date PA Request Received: 02/02/24 PA Submission Date: 02/02/24 M: [id number] Notes: n/a Submitted by: Alyse Phone: [phone] * Telephone Encounter - Jeanne Franklin - 02/02/2024 1425 EDT [facility] Request for PA/Funding Drug Name: Humira Next Injection Date: 02/09 RX Insurance: BCBS Qty Remainin PA Required: Yes Funding Needed: No documented in this encounter Plan of Treatment Not on file documented as of this encounter Visit Diagnoses Not on filedocumented in this encounter Care Teams Industrial Services Worker Relationship Specialty Start Date End Date Kayleigh Mallory FNP [address] [place], [place] [phone] PCP - General 02/04/19 documented as of this encounter
--- OUTSIDE RECORDS SUMMARY | 2024-03-22 16:12 | XMS_ITS | Encounter Summary ---
Author Organization [facility] Address [address] [place] [address] Care Team Providers Care Funeral Home General Manager Name Role Phone Kayleigh Mallory WILFREDO Primary Care Provider [phone] Reason for Visit * Reason Comments Medications Refill Encounter Details Date Type Department Care Team (Late st Contact Info) Description 05/26/2023 Refill [facility] Rheumatology & Immunology - [facility] [address] [place], [place] [address] Harsh Malloy, COIN BOX INSPECTOR 111 [facility], [address] [place] [address] Medications Refill Social History Tobacco [...] 02/02/2018 11:27 EDT documented in this encounter Ordered Prescriptions Prescription Sig Dispense Quantity Refills Last Filled Start Date End Date methotrexate 2.5 mg tablet Take 10 Tablets by mouth once a week. Get labs every 3-4 months. 130 Tablet 1 05/27/2023 documented in this encounter Miscellaneous Notes * Telephone Encounter - Nicole Montero RN - 05/27/2023 1713 EST MTX refill was sent to [facility] 03/21/23 for 12 weeks and 1 [...] documented as of this encounter Care Teams Funeral Home General Manager Relationship Specialty Start Date End Date Kayleigh Mallory FNP [address] [place] [address] [address] [place] [phone] PCP - General 02/04/19 documented as of this encounter
--- OUTSIDE RECORDS SUMMARY | 2024-03-22 16:12 | XMS_ITS | Encounter Summary ---
Author Organization [facility] Address [address] [place] [address] Care Team Providers Care Manager Planning Name Role Phone Kayleigh Mallory WILFREDO Primary Care Provider [phone] Reason for Visit * Reason Comments Medications Refill Encounter Details Date Type Department Care Team (Late st Contact Info) Description 05/25/2023 Refill [facility] Rheumatology & Immunology - [address] [phone] Price Flores MD [address] [place] [address], [address] [place] [address] Medications Refill Social History Tobacco [...] Refills Last Filled Start Date End Date folic acid (FOLVITE) 1 mg tablet TAKE [...] as of this encounter Care Teams Manager Planning Relationship Specialty Start Date End Date Kayleigh Mallory FNP 26 [facility] [address] [place] [phone] PCP - General 02/04/19 documented as of this encounter
--- OUTSIDE RECORDS SUMMARY | 2024-03-22 16:12 | XMS_ITS | Encounter Summary ---
Author Organization [facility] Address [address] [place] [address] Care Team Providers Care Surg Rn Name Role Phone Kayleigh Mallory WILFREDO Primary Care Provider Reason for Visit * Reason Comments Medications Refill Encounter Details Date Type Department Care Team (Late st Contact Info) Description 11/03/2022 Refill [facility] Rheumatology & [facility]ology - [facility] [address] [place], [place] [address] Harsh Malloy, BARGE MASTER 111 [facility], [address] [place] [address] Medications Refill Social History Tobacco [...] Date End Date methotrexate 2.5 mg tablet TAKE 10 TABLETS BY MOUTH WEEKLY LABS ARE NEEDED EVERY 3 MONTHS 120 Tablet 1 11/04/2022 documented in this encounter Plan of Treatment Not on file documented as of this encounter Visit Diagnoses Not on filedocumented in this encounter Discontinued Medications Medication Sig Discontinue Reason Start Date End Da te methotrexate 2.5 mg tablet TAKE 10 TABLETS BY MOUTH WEEKLY LABS ARE NEEDED EVERY 3 MONTHS 08/22/2022 11/04/2022 documented as of this encounter Care Teams Surg Rn Relationship Specialty Start Date End Date Kayleigh Mallory FNP [address] [place] [address] [address] [place] [phone] PCP - General 02/04/19 documented as of this encounter
--- OUTSIDE RECORDS SUMMARY | 2024-03-22 16:12 | XMS_ITS | Encounter Summary ---
Author Organization [facility] Address [address] [place] [address] Care Team Providers Care Warm In Worker Name Role Phone Kayleigh Mallory WILFREDO Primary Care Provider [phone] Encounter Details Date Type Department Care Team (Late st Contact Info) Description 11/07/2022 Specialty Pharmacy [facility] Ambulatory Pharmacy - [facility] [address] [place], [place] [address] Damaris Simmons RPH Social History Tobacco Use Types Packs/Day [...] 02/02/2018 11:27 EDT documented in this encounter Progress Notes * Kim Huang - 11/07/2022 1155 EDT RTS until 11/09 documented in this encounter Plan of Treatment Not on file documented as of this encounter Visit Diagnoses Not on filedocumented in this encounter Care Teams Warm In Worker Relationship Specialty Start Date End Date Kayleigh Mallory FNP [address] [place] [phone] PCP - General 02/04/19 documented as of this encounter
--- OUTSIDE RECORDS SUMMARY | 2024-03-22 16:12 | XMS_ITS | Encounter Summary ---
Author Organization [facility] Address [address] [place] [address] Care Team Providers Care Pediatric Nurse Practitioner Name Role Phone Kayleigh Mallory WILFREDO Primary Care Provider [phone] Encounter Details Date Type Department Care Team (Latest Contact Info) Description 12/09/2023 Specialty Pharmacy [facility] Specialty Pharmacy [address] [place] [phone] Matthew Kapadia [facility] Refill Coordination Outreach for Rheumatology Social [...] on filedocumented in this encounter Care Teams Pediatric Nurse Practitioner Relationship Specialty Start Date End Date Kayleigh Mallory FNP [address] [address] PCP - General 02/04/19 documented as of this encounter
--- OUTSIDE RECORDS SUMMARY | 2024-03-22 16:12 | XMS_ITS | Encounter Summary ---
Author Organization [facility] Address [address] [place] [address] Care Team Providers Care Cambering Machine Operator Name Role Phone Kayleigh Mallory WILFREDO Primary Care Provider [phone] Encounter Details Date Type Department Care Team (Latest Contact Info) Description 10/14/2023 Specialty Pharmacy [facility] Specialty Pharmacy [address] [place] [phone] Matthew Kapadia [facility] Refill Coordination Outreach for Rheumatology [...] on filedocumented in this encounter Care Teams Cambering Machine Operator Relationship Specialty Start Date End Date Kayleigh Mallory FNP [address] [phone] PCP - General 02/04/19 documented as of this encounter
--- OUTSIDE RECORDS SUMMARY | 2024-03-22 16:12 | XMS_ITS | Encounter Summary ---
Author Organization [facility] Address [address] [place] [address] Care Team Providers Care Extracting Machine Operator Name Role Phone Kayleigh Mallory Primary Care Provider [phone] Encounter Details Date Type Department Care Team (Latest Contact Info) Description 11/14/2022 Lab Requisition [facility] Pathology & Laboratory Medicine - [facility] [address] [place] [address] Kayleigh Mallory FNP [address] [place] [address] [place] [address] Encounter for gynecological examination (general) [...] on file documented as of this encounter Procedures Procedure [...] types, PCR Negative Negative 11/22/2022 14:12 EDT [facility] Comment:No E6 or E7 mRNA is detected from HPV types 16,18,31,33,35,39,45,51,52,56,58,59,66, and 68 by molecular spectroscopist mediated amplification. Papanicolaou smear specimen (specimen) CERVIX UTERI STRUCTURE / Unknown 11/13/2022 9:15 EDT 11/21/2022 9:43 EDT us Kayleigh [facility] MICROBIOLOGY - GENERAL ORDERABLE S Final Result [facility] [address] [place] [address] * PAP TEST (11/13/2022 9:15 EDT) Specimens A. Cervix and/or Endocervix , ThinPrep Imaging System with Manual Evaluation 11/22/2022 14:12 EDT [facility] Specimen Adequacy Satisfactory for Evaluation - transformation zone component present 11/22/2022 14:12 EDT [facility] General Categorization Negative for intraepithelial lesion or malignancy 11/22/2022 14:12 EDT [facility] Attestation . 11/22/2022 14:12 EDT [facility] at 1412 Clinical History SEE BELOW 11/23/19 14:12 EDT [facility] HPV The result for the Human Papillomavirus (HPV) Detection-High Risk Types is Negative. No E6 or E7 mRNA is detected from HPV types 16,18,31,33,35,39 ,45,51,52,56,58,5 9,66, and 68 by molecular spectroscopist mediated amplification.Cinthya ting was performed on specimen [id number] and was resulted on 11/22/2022 1412 EDT by ALF, LAB INSTRUMENT RESULTS IN 11/22/2022 14:12 EDT [facility] Performing Lab [facility] 11/22/2022 14:12 EDT [facility] Scanned Images 11/22/2022 14:12 T [facility] Papanicolaou smear specimen (specimen) CERVIX UTERI STRUCTURE / Unknown 11/13/2022 9:15 EDT 11/14/2022 14:55 EDT Kayleigh [facility] PATHOLOGY ORDERABLES Final Resul t [facility] [address] [place] [address] documented in this encounter Visit Diagnoses Diagnosis Encounter for gynecological examination (general) (routine) without abnormal findings Encounter for screening for malignant neoplasm of cervix Screening for malignant neoplasm of the cervix Encounter for general adult medical examination without abnormal findings Unspecified general medical examination documented in this encounter Care Teams Extracting Machine Operator Relationship Specialty Start Date End Date Kayleigh Mallory FNP [address] [place] [address] [address] [place] [address] PCP - General 10/10/19 documented as of this encounter
--- OUTSIDE RECORDS SUMMARY | 2024-03-22 16:12 | XMS_ITS | Encounter Summary ---
Author Organization [facility] Address [address] [place] [address] Care Team Providers Care Baby Stroller Rental Clerk Name Role Phone Kayleigh Mallory WILFREDO Primary Care Provider [phone] Reason for Visit * Reason Onset Date Comments Medications Refill 02/02/2024 Encounter Details Date Type Department Care Team (Late st Contact Info) Description 02/02/2024 Telephone [facility] Rheumatology & Immunology - [facility] [address] [place], [place] [id number] Harsh Malloy, STAMP MAKER 111 [facility], [facility] [address] [place] [address] Medications Refill Social History Tobacco [...] Refills Last Filled Start Date End Date adalimumab (HUMIRA,CF, PEN) 40 mg/0.4 mL penIndications:Psor iatic arthropathy ([facility]) Inject 0.4 mL into the skin every 14 days. Specialty. 6 Kit 1 02/02/2024 documented in this encounter Progress Notes * Dexter Byers RPH - 02/02/2024 1333 EDT Specialty Medication Refill Request Requested Medication: Humira 40 mg/0.4 ml pen into the skin every 14 days Indication: PsA A chart review of last visit, labs, and medication list has been reviewed and it has been identified this therapy should be continued. New refills have been sent in to [facility] per protocol. Dexter Byers PharmD (he/him) Ambulatory Pharmacist Clinician Rheumatology 02/02/2024 documented in this encounter Miscellaneous Notes * Telephone Encounter - Jeanne Franklin - 02/02/2024 1331 EDT Medication Refill Request Medication: Humira Scheduled outreach date: 02/01 Pharmacy: [facility] ([facility]) [address] Next appt: Visit date not found documented in this encounter Plan of Treatment Not on file documented as of this encounter Visit Diagnoses Diagnosis Psoriatic arthropathy (HCC-CMS) Psoriatic arthropathy documented in this encounter Discontinued Medications Medication Sig Discontinue Reason Start Date End Da te adalimumab (HUMIRA,CF, PEN) 40 mg/0.4 mL penIndications:Psoriatic arthropathy (HCC-CMS) Inject 0.4 mL into the skin every 14 days. Specialty. Reorder 08/18/2023 02/02/2024 documented as of this encounter Care Teams Baby Stroller Rental Clerk Relationship Specialty Start Date End Date Kayleigh Mallory FNP [address] [phone] PCP - General 02/04/19 documented as of this encounter
--- OUTSIDE RECORDS SUMMARY | 2024-03-22 16:12 | XMS_ITS | Referral Summary ---
Author Organization [facility] Address [address] [place] [address] Care Team Providers Care Scuba Diving Teacher Name Role Phone Kayleigh Mallory WILFREDO Primary Care Provider [phone] Encounters Date Type Department Care Team Description 03/02/2024 Specialty Pharmacy [facility] [address] [place] [phone] Edna Hernandez, [facility] Refill Coordination Outreach for Rheumatology 02/02/2024 Telephone [facility] Rheumatology Immunology [address] [id number] Harsh Malloy NP Prior Auth, Medication 02/02/2024 Telephone [facility] [address] [place], [place] [phone] Harsh Malloy NP Medications Refill 02/02/2024 Specialty Pharmacy [facility] [address] [place] [phone] Edna Hernandez RPH Refill Coordination Outreach for Rheumatology 01/05/2024 Specialty Pharmacy [facility] [address] [place] [phone] Matthew Kapadia RP Refill Coordination Outreach for Rheumatology 12/29/2023 Refill [facility] Rheumatology Immunology [facility] [address] [place], [place] [phone] Merchand, Harsh R, DIESEL TRUCK TECHNICIAN Medications Refill from Last 3 Months Allergies Active Allergy Reactions Criticality Noted Date Comments Aspirin Hives 10/24/2010 Medications acetaminophen (TYLENOL) 500 mg tablet Take 2 Tablets by mouth every 6 hours as needed. Active loratadine-pseud oephedrine (CLARITIN-D 24-HOUR) 10-240 mg per tablet Take [...] to rash if needed 1 Tube 3 8 Active Additional Information Patient not taking.Reported on 03/11/2023 DOCUSATE SODIUM (COLACE ORAL)Indications :Need for pneumococcal vaccination,Psor iatic arthropathy (HCC-CMS),Encoun ter for long-term (current) use of medications,Valentino er toes of both feet,Psoriasis with arthropathy (HCC-CMS) Take by mouth. Activ e psyllium husk, with sugar, (METAMUCIL, WITH SUGAR,) 3.4 gram packetIndication s:constipation Take 2 Packets by mouth daily. Active estradioL (ESTRACE) 0.01 % (0.1 mg/gram) vaginal cream Place 1 g vaginally three times a week. Mon, Wed, Fri 3 Active halobetasol (ULTRAVATE) 0.05 % ointment Apply topically daily. As needed for vaginal skin irritation per OBGYN 2 Active folic acid (FOLVITE) 1 mg tablet TAKE 1 TABLET BY MOUTH DAILY 90 Tablet 3 4 Active mirabegron (MYRBETRIQ) 25 mg extended release tablet Take 1 Tablet by mouth daily. Active methotrexate 2.5 mg tablet Take 10 Tablets by mouth once a week. Get labs every 3-4 months. 130 Tablet 1 4 Active adalimumab (HUMIRA,CF, PEN) 40 mg/0.4 mL penIndications:P soriatic arthropathy ([facility]) Inject 0.4 mL into the skin every 14 days. Specialty. 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[facility]) 10/24/2010 Immunizations Name Administration Dates Next Due Covid-19 mRNA Vaccine (PFIZE R COVID-19) PF 0.3 ml IM (12 yrs+) 02/11/2022,08/25/2021,01/30/2021,03/0 06/2020,06/07/2020 07/27/2020 Covid-19 mRNA-LNP Bivalent V accine ([facility] BIVALENT VACCINE) PF 0.3 mL IM (12 [...] Passive Smoke Exposure: Never Smokeless Tobacco: Never Tobacco Cessation:Counseling Given: [...] Index 27.66 05/22/2023 1354 EST Functional Status * Because of a physical, mental, or emotional condition, does this person have difficulty doing errands alone such as visiting a doctor's office or shopping? Answer Date of Assessment Author No 02/02/2018 11:27 EDT Mental Status * Because of a physical, mental, or emotional condition, does this person have serious difficulty concentrating, remembering, or making decisions? Answer Entry Date Author No 02/02/2018 11:27 EDT Plan of Treatment Not on file Procedures Procedure Name Priority Date/Time Associated Diagnosis [...] C Antibody Negative Negative 02/28/2022 16:05 EDT [facility] Blood VENOUS BLOOD / Unknown Venipuncture / Unknown 02/28/2022 11:36 EDT 02/28/2022 12:17 EDT us Harsh Malloy NP CHEMISTRY & BLOOD GAS ORDER GABY Final Result [facility] [address] [place] [address] from Last 3 Months or Most Recently Relevant to Health Maintenance [place] [address] [place] [address] Care Teams Scuba Diving Teacher Relationship Specialty Start Date End Date Kayleigh Mallory FNP [address] [place] [address] [address] [place] [address] PCP - General 02/04/19
--- OUTSIDE RECORDS SUMMARY | 2024-03-22 16:12 | XMS_ITS | Encounter Summary ---
Author Organization [facility] Address [address] [place] [address] Care Team Providers Care Digital Press Operator Name Role Phone Kayleigh Mallory WILFREDO Primary Care Provider [phone] Encounter Details Date Type Department Care Team (Late st Contact Info) Description 09/16/2022 Specialty Pharmacy [facility] - [facility] [address] [place], [place] [address] Damaris Simmons RPH Social History Tobacco Use [...] filedocumented in this encounter Care Teams Digital Press Operator Relationship Specialty Start Date End Date Kayleigh Mallory FNP [address] [place] [address] [address] [place] [address] PCP - General 02/04/19 documented as of this encounter
--- OUTSIDE RECORDS SUMMARY | 2024-03-22 16:12 | XMS_ITS | Encounter Summary ---
Author Organization [facility] Address [address] [place] [address] Care Team Providers Care Engine Designer Name Role Phone Kayleigh Mallory WILFREDO Primary Care Provider [phone] Reason for Visit * Reason Onset Date Comments Prior Auth, Medication 02/03/2023 humira Encounter Details Date Type Department Care Team (Late st Contact Info) Description 02/03/2023 Telephone [facility] Rheumatology & Immunology - [facility] [address] [place], [place] [phone] Harsh Malloy, ELBERT 111 [facility], [address] [place] [address] Prior Auth, Medication (humira) Social [...] Approval Dates: 02/03/2023 - 02/04/2024 Authorization Number: [id number] Required Pharmacy: [facility] able to fill?: YES Additional Info/Other Notes: approval letter uploaded to scans Prior Authorization Submission Process - Routine Re-Auth Medication: Humira 40mg/0.4ml q14d Insurance: [employer] Insurance Type: Commercial Date [place] Request Received: 02/03/2023 [place] Submission Date: 02/03/2023 CMM: [id number] Notes: re-auth Submitted by: costa Phone: [phone] documented in this encounter Plan of Treatment Not on file documented as of this encounter Visit Diagnoses Not on filedocumented in this encounter Care Teams Engine Designer Relationship Specialty Start Date End Date Kayleigh Mallory FNP [address] [place] [address] [address] [place] [address] PCP - General 02/04/19 documented as of this encounter
--- OUTSIDE RECORDS SUMMARY | 2024-03-22 16:12 | XMS_ITS | Encounter Summary ---
Author Organization [facility] Address [address] [place] [address] Care Team Providers Care System Operator Name Role Phone Mohamud Kayleigh WILFREDO Primary Care Provider [phone] Reason for Referral * Laboratory Services (Routine/Next Available) - New Request Specialty Diagnoses / Procedures Referred By Twyla love Referred To Contact Diagnoses Psoriatic arthropathy ([facility]) Encounter for long-term (current) use of medications Procedures COMPREHENSIVE METABOLIC PANEL (CMP) Harsh Malloy NP Phone: tel: fax: Referral ID Status Reason Start Date Expiration Date V isits Requested Visits Authorized [id number] New Request 05/22/2023 1 1 * Laboratory Services (Routine/Next Available) - New Request Specialty Diagnoses / Procedures Referred By Twyla love Referred To Contact Diagnoses Psoriatic arthropathy ([facility]) Encounter for long-term (current) use of medications Procedures COMPLETE BLOOD COUNT AND DIFFERENTIAL Harsh Malloy NP Phone: tel: fax: Referral ID Status Reason Start Date Expiration Date V isits Requested Visits Authorized [id number] New Request 05/22/2023 1 1 Reason for Visit * Reason Comments Follow-up Encounter Details Date Type Department Care Team (Cirilo Contact Info) Description 05/22/2023 14:00 EST Office Visit [facility] Rheumatology & Immunology - [address] [address] Harsh Malloy NP 111 [facility], [address] [place] [address] Psoriatic arthropathy ([facility]) (Primary Dx); Encounter for long-term (current) use [...] EST documented in this encounter Functional Status * Because of [...] 02/02/2018 11:27 EDT documented in this encounter Patient Instructions [...] color change in cold X Cough since Thanksgiving - saw PCP who did not hear any issues with her lungs, said it is improvingand if not resolved in next 2 weeks. 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 Psoriatic arthropathy ([facility]) Yes Encounter for long-term (current) [...] documented in this encounter Plan of Treatment Scheduled Orders Name Type Priority Associated Diagnoses Orde r Schedule COMPLETE BLOOD COUNT AND DIFFERENTIAL Lab Routine Psoriatic arthropathy ([facility]) Encounter for long-term (current) use of medications Every 12-Weeks for 4 Occurrences starting 05/22/2023 until 05/21/2024 COMPREHENSIVE METABOLIC PANEL (CMP) Lab Routine Psoriatic arthropathy ([facility]) Encounter for long-term (current) use of medications Every 12-Weeks for 4 Occurrences starting 05/22/2023 until 05/21/2024 documented as of this encounter Visit Diagnoses Diagnosis Psoriatic arthropathy ([facility])- Primary Psoriatic arthropathy Encounter for long-term (current) use of medications Encounter for long-term (current) use of other medications documented in this encounter Care Teams System Operator Relationship Specialty Start Date End Date Kayleigh Mallory FNP [address] [address] PCP - General 02/04/19 documented as of this encounter
--- OUTSIDE RECORDS SUMMARY | 2024-03-22 16:12 | XMS_ITS | Encounter Summary ---
Author Organization [facility] Address [address] [place] [address] Care Team Providers Care Design Drafter Name Role Phone Kayleigh Mallory WILFREDO Primary Care Provider [phone] Encounter Details Date Type Department Care Team (Latest Contact Info) Description 07/17/2023 Specialty Pharmacy [facility] [address] [place] [id number] Dexter Byers [facility] Refill Coordination Outreach for Rheumatology [...] on filedocumented in this encounter Care Teams Design Drafter Relationship Specialty Start Date End Date Kayleigh Mallory FNP [address] [address] PCP - General 02/04/19 documented as of this encounter
--- OUTSIDE RECORDS SUMMARY | 2024-03-22 16:12 | XMS_ITS | Encounter Summary ---
Author Organization [facility] Address [address] [place] [address] Care Team Providers Care Food Inspector Name Role Phone Kayleigh Mallory WILFREDO Primary Care Provider Reason for Referral * Laboratory Services (Routine/Next Available) - New Request Specialty Diagnoses / Procedures Referred By Twyla love Referred To Contact Diagnoses Psoriatic arthropathy ([facility]) Encounter for long-term (current) use of medications Procedures COMPREHENSIVE METABOLIC PANEL (CMP) Harsh Malloy NP [address] [address] Phone: tel: fax: Referral ID Status Reason Start Date Expiration Date V isits Requested Visits Authorized [id number] New Request 11/24/2023 1 1 * Laboratory Services (Routine/Next Available) - New Request Specialty Diagnoses / Procedures Referred By Twyla love Referred To Contact Diagnoses Psoriatic arthropathy ([facility]) Encounter for long-term (current) use of medications Procedures COMPLETE BLOOD COUNT AND DIFFERENTIAL Harsh Malloy NP [address] [address] Phone: tel: fax: Referral ID Status Reason Start Date Expiration Date V isits Requested Visits Authorized [id number] New Request 11/24/2023 1 1 Reason for Visit * Reason Comments Follow-up Encounter Details Date Type Department Care Team (Late st Contact Info) Description 11/24/2023 10:00 EDT Telemedicine [facility] Rheumatology & Immunology - [address] [phone] Harsh Malloy NP [address] [place] [address], [address] [place] [address] Psoriatic arthropathy ([facility]) (Primary Dx); Encounter for long-term [...] * Patient Instructions* Harsh Malloy NP - 11/24/2023 10:00 EDT Continue current meds. Labs every 3-4 months Recommend fall covid and flu - hold methotrexate 1 week after RVS- likely age 60 For adults 60 years and older. The vaccine is not live and can be given with other vaccines. The most common side effects after RSV vaccination reported from clinical trials included pain, redness, and swelling where the shot is given, fatigue, fever, headache, nausea, diarrhea, and muscle or joint pain. These side effects were usually mild. Rare occurrence of Guillain-Crowder?? syndrome (GBS). They are around 80% effective. For hand pain- can treat with tylenol, NSAIDs, topical lidocaine or diclofenac gel- can use on soremuscles and joints up to 4x per day documented in this encounter Progress Notes * Kellie Quintanilla MA - 11/24/2023 1000 EDT The concept of ???Telemedicine?? has been described [...] in patient???s medical or mental health care. Patient understands that they maybe responsible for copays, deductible or coinsurance for this service. TELEMEDICINE VIDEO VISIT Today's visit was provided through telemedicine video conferencing: I have reviewed the appropriateness of using video technology with the patient with regards to today's visit. The location of the patient : Not at home (another medical/non-medical, personal spaces outside regional medical center) The location of the provider: Office The following people and their roles were present for today's visit: Appointment Provider: Harsh Malloy NP ABIGAIL DAVIS MA * Harsh Malloy NP - 11/24/2023 1000 EDT Images from the original note were not included. Patient ID: Nina Boothe is a 53 y.o. y.o. female Subjective: Chief Complaint: Follow-up HPI: Here for follow up of psoriatic arthritis on humira and methotrexate. 01/13/2018 Sphyncerotomy No specialty comments available. REVIEW OF SYSTEMS: Yes No Yes No Fever X Joint pain x X Weight gain or loss -3 pounds (lbs) Duration of AM joint stiffness hours / min Eye pain or dryness X Numbness/tingling X Mouth or nose sores X Heart burn / Nausea X Chest pain X Diarrhea X Shortness of Breath X Blood in stool X Cough X Burning on urination X Skin rash X Hand/Foot color change in cold X Increased hand pain over past month with gripping, denies swelling or numbness or tingling or morning stiffness. 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 Objective: There were no vitals taken for this visit. PHYSICAL EXAM: Axox3 Lungs not acute distress MSK - No joint swelling LABS: Lab Results Component Value Date WBC 7.00 08/28/2021 HGB 14.2 08/28/2021 HCT 41.4 08/28/2021 MCV 92 08/28/2021 PLT 265 08/28/2021 Lab Results Component Value Date BUN 18 08/28/2021 CREATININE 0.84 08/28/2021 AST 29 08/28/2021 ALT 14 08/28/2021 Lab Results Component Value Date SEDRATE 4 07/08/2012 No results found for: RF, PARKER, DSDNA, SM, C3, C4, LIME SLAKER No components found for: UPROT U/A: No results found for: CLARITYU, LABSPEC, PHUR, GLUCOSEU, BILIRUBINUR, KETONES, BLOODU, PROTEINUA Lipid Profile: No results found for: CHOL, TRIG, HDL, LDLBASE, CHOLHDL RAPID3 Summary Functional Status: 0 Pain Tolerance: 2 Global Estimate: 1 Score: 3 Interpretation: Near Remission ASSESSMENT/PLAN: Encounter Diagnoses Name Primary? Psoriatic arthropathy ([facility]) Yes Encounter for long-term (current) use of medications 1. 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 Doing well on MTX 25mg po weekly and humira, no joint activity . States home hand pain while driving ( [address]) - can treat with topicals or tylenol/NSAID. Denies numbness/tingling or symptoms of CTS. 2. No psoriasis 3. Up to date on pneumonia, shingrix 4. Labs every 3-4 months 5. Completed covid vaccine - pfizer 1-4 Pneumonia 13, pneumonia 23 and shingrix 6 pes planus - recommend arch supports Patient Instructions Continue current meds. Labs every 3-4 months Recommend fall covid and flu - hold methotrexate 1 week after RVS- likely age 60 For adults 60 years and older. The vaccine is not live and can be given with other vaccines. The most common side effects after RSV vaccination reported from clinical trials included pain, redness, and swelling where the shot is given, fatigue, fever, headache, nausea, diarrhea, and muscle or joint pain. These side effects were usually mild. Rare occurrence of Guillain-Crowder?? syndrome (GBS). They are around 80% effective. For hand pain- can treat with tylenol, NSAIDs, topical lidocaine or diclofenac gel- can use on soremuscles and joints up to 4x per day No follow-ups on file. Patient verbalizes understanding [...] COUNT AND DIFFERENTIAL Lab Routine Psoriatic arthropathy ([facility]) Encounter for long-term (current) use of medications Months - Every 4 for 3 Occurrences starting 11/24/2023 until 11/23/2024 COMPREHENSIVE METABOLIC PANEL (CMP) Lab Routine Psoriatic arthropathy ([facility]) Encounter for long-term (current) use of medications Months - Every 4 for 3 Occurrences starting 11/24/2023 until 11/23/2024 documented as of this encounter Visit Diagnoses Diagnosis Psoriatic arthropathy ([facility])- Primary Psoriatic arthropathy Encounter for long-term (current) use of medications Encounter for long-term (current) use of other medications documented in this encounter Historical Medications * This list may reflect changes made after this encounter. mirabegron (MYRBETRIQ) 25 mg extended release tablet Take 1 Tablet by mouth daily. added in this encounter Care Teams Food Inspector Relationship Specialty Start Date End Date Kayleigh Mallory FNP [address] [place] [phone] PCP - General 02/04/19 documented as of this encounter
--- OUTSIDE RECORDS SUMMARY | 2024-03-22 16:12 | XMS_ITS | Encounter Summary ---
Author Organization [facility] Address [address] [place] [address] Care Team Providers Care Videographer Name Role Phone Kayleigh Mallory WILFREDO Primary Care Provider [phone] Encounter Details Date Type Department Care Team (Latest Contact Info) Description 04/01/[address] [facility] [address] [place], [place] [address] Matthew Kapadia [facility] Refill Coordination Outreach for Rheumatology [...] documented in this encounter Progress Notes * Lois Li - 04/01/2023 1133 EST 04/01/2023 Medication Name:Moira RTS until: 04/02/23 Initials:BL documented in this encounter Plan of Treatment Not on file documented as of this encounter Visit Diagnoses Not on filedocumented in this encounter Care Teams Videographer Relationship Specialty Start Date End Date Kayleigh Mallory FNP [address] [facility] [address] [place] [phone] PCP - General 02/04/19 documented as of this encounter
--- OUTSIDE RECORDS SUMMARY | 2024-03-22 16:12 | XMS_ITS | Encounter Summary ---
Author Organization [facility] Address [address] [place] [address] Care Team Providers Care Stained Glass Glazier Helper Name Role Phone Kayleigh Mallory WILFREDO Primary Care Provider [phone] Encounter Details Date Type Department Care Team (Latest Contact Info) Description 11/11/2023 Specialty Pharmacy [facility] [address] [place], [place] [address] Matthew Kapadia [facility] Refill Coordination Outreach for Rheumatology, Clinical Follow-up [...] on filedocumented in this encounter Care Teams Stained Glass Glazier Helper Relationship Specialty Start Date End Date Kayleigh Mallory FNP [address] [phone] PCP - General 02/04/19 documented as of this encounter
--- OUTSIDE RECORDS SUMMARY | 2024-03-22 16:12 | XMS_ITS | Encounter Summary ---
Author Organization [facility] Address [address] [place] [address] Care Team Providers Care Manager Family Name Role Phone Kayleigh Mallory WILFREDO Primary Care Provider [phone] Encounter Details Date Type Department Care Team (Late st Contact Info) Description 12/09/2022 Specialty Pharmacy [facility] Ambulatory [facility] - [facility] [address] [place] [address] Yamile Plaza RPH Social History Tobacco Use [...] on filedocumented in this encounter Care Teams Manager Family Relationship Specialty Start Date End Date Kayleigh Mallory FNP 26 [facility] [address] [place] [address] PCP - General 02/04/19 documented as of this encounter
--- OUTSIDE RECORDS SUMMARY | 2024-03-22 16:12 | XMS_ITS | Encounter Summary ---
Author Organization [facility] Address [address] [place] [address] Care Team Providers Care Line Server Name Role Phone Kayleigh Mallory WILFREDO Primary Care Provider [phone] Reason for Visit * Reason Onset Date Comments Medications Refill 02/24/2023 Encounter Details Date Type Department Care Team (Late st Contact Info) Description 02/24/[address] [facility] Rheumatology & Immunology - [facility] [address] [place], [place] [id number] Harsh Malloy, ORNAMENTAL IRONWORKER 111 [facility] [address] [place] [address] Medications Refill Social History Tobacco [...] Date adalimumab (HUMIRA,CF, PEN) 40 mg/0.4 mL penIndications:Pso riatic arthropathy ([facility]) Inject 0.4 mL into the skin every 14 days. Specialty. 6 Kit 1 02/24/2023 08/18/2023 documented in this encounter Miscellaneous Notes * Telephone Encounter - Xander Betancur - 02/24/2023 1415 EDT Medication Refill Request Medication: Humira Patient needs medication by: 02/24/2023 Scheduled outreach date: 02/24/2023 Pharmacy: [facility] ([facility] 1 [facility] appt: 03/03/2023 documented in this encounter Plan of Treatment Not on file documented as of this encounter Visit Diagnoses Diagnosis Psoriatic arthropathy ([facility])- Primary Psoriatic arthropathy documented in this encounter Discontinued Medications Medication Sig Discontinue Reason Start Date End Da te adalimumab (HUMIRA,CF, PEN) 40 mg/0.4 mL pen Inject 0.4 mL into the skin every 14 days. Specialty. Reorder 09/13/2022 02/24/2023 documented as of this encounter Care Teams Line Server Relationship Specialty Start Date End Date Kayleigh Mallory FNP [address] [place] [address] [address] [place] [address] PCP - General 02/04/19 documented as of this encounter
--- OUTSIDE RECORDS SUMMARY | 2024-03-22 16:12 | XMS_ITS | Encounter Summary ---
Author Organization [facility] Address [address] [place] [address] Care Team Providers Care Application Performance Engineer Name Role Phone Kayleigh Mallory WILFREDO Primary Care Provider [phone] Encounter Details Date Type Department Care Team (Late st Contact Info) Description 01/31/2023 Specialty Pharmacy [facility] Ambulatory Pharmacy - [facility] [address] [place] [address] Yamile Plaza RPH Social History Tobacco Use [...] encounter Progress Notes * Kim Huang - 01/31/2023 1328 EDT Chris RTS until 02/01, pushing outreach documented in this encounter Plan of Treatment Not on file documented as of this encounter Visit Diagnoses Not on filedocumented in this encounter Care Teams Application Performance Engineer Relationship Specialty Start Date End Date Kayleigh Mallory FNP [address] [phone] PCP - General 02/04/19 documented as of this encounter
--- OUTSIDE RECORDS SUMMARY | 2024-03-22 16:12 | XMS_ITS | Encounter Summary ---
Author Organization [facility] Address [address] [place] [address] Care Team Providers Care Delivery Associate Name Role Phone Kayleigh Mallory WILFREDO Primary Care Provider [phone] Encounter Details Date Type Department Care Team (Latest Contact Info) Description 02/02/2024 Specialty Pharmacy [facility] Specialty Pharmacy [address] [place] [phone] Edna Hernandez RPH Refill Coordination Outreach for [...] documented in this encounter Progress Notes * Jeanne Franklin - 02/02/2024 1320 EDT Specialty Pharmacy Documentation Medication: Humira Clinic: Rheum Reason for Encounter: outreach Notes: new rx requested Follow up date: 02/01 Follow up reason: outreach Specialty Pharmacy Documentation Medication: Humira Clinic: Rheum Reason for Encounter: outreach Notes: current PA expires 02/03, should be due for inj on 02/09 Follow up date: 02/01 Follow up reason: outreach documented in this encounter Plan of Treatment Not on file documented as of this encounter Visit Diagnoses Not on filedocumented in this encounter Care Teams Delivery Associate Relationship Specialty Start Date End Date Kayleigh Mallory FNP [address] [phone] PCP - General 02/04/19 documented as of this encounter
--- OUTSIDE RECORDS SUMMARY | 2024-03-22 16:12 | XMS_ITS | Encounter Summary ---
Author Organization [facility] Address [address] [place] [address] Care Team Providers Care Cafe Team Member Name Role Phone Kayleigh Mallory WILFREDO Primary Care Provider [phone] Reason for Visit * Reason Comments Medications Refill Encounter Details Date Type Department Care Team (Late st Contact Info) Description 12/29/2023 Refill [facility] Rheumatology & Immunology - [facility] [address] [place], [place] [id number] Harsh Malloy, TOOL SHARPENER 111 [facility] [address] [place] [address] Medications Refill Social History Tobacco [...] labs every 3-4 months. 130 Tablet 1 12/30/2023 documented in this encounter Plan of Treatment Not on file documented as of this encounter Visit Diagnoses Not on filedocumented in this encounter Discontinued Medications Medication Sig Discontinue Reason Start Date End Da te methotrexate 2.5 mg tablet Take 10 Tablets by mouth once a week. Get labs every 3-4 months. 05/27/2023 12/30/2023 documented as of this encounter Care Teams Cafe Team Member Relationship Specialty Start Date End Date Kayleigh Mallory FNP [address] [place] [phone] PCP - General 02/04/19 documented as of this encounter
--- OUTSIDE RECORDS SUMMARY | 2024-03-22 16:12 | XMS_ITS | Encounter Summary ---
Author Organization [facility] Address [address] [place] [address] Care Team Providers Care Automated Teller Manager Name Role Phone Kayleigh Mallory WILFREDO Primary Care Provider Encounter Details Date Type Department Care Team (Latest Contact Info) Description 01/05/2024 Specialty Pharmacy [facility]ty Pharmacy [address] [place] [phone] Matthew Kapadia [facility] Refill Coordination Outreach for [...] on filedocumented in this encounter Care Teams Automated Teller Manager Relationship Specialty Start Date End Date Kayleigh Mallory FNP [address] [phone] PCP - General 02/04/19 documented as of this encounter
--- OUTSIDE RECORDS SUMMARY | 2024-03-22 16:12 | XMS_ITS | Encounter Summary ---
Author Organization [facility] Address [address] [place] [address] Care Team Providers Care Ergonomics Engineer Name Role Phone Kayleigh Mallory WILFREDO Primary Care Provider [phone] Encounter Details Date Type Department Care Team (Late st Contact Info) Description 01/06/2023 Specialty Pharmacy [facility] Ambulatory Pharmacy - [facility] [address] [place] [address] Yamile Plaza RPH Social History Tobacco Use [...] on filedocumented in this encounter Care Teams Ergonomics Engineer Relationship Specialty Start Date End Date Kayleigh Mallory FNP 26 [facility] [address] [place] [address] PCP - General 02/04/19 documented as of this encounter
--- OUTSIDE RECORDS SUMMARY | 2024-03-22 16:12 | XMS_ITS | Encounter Summary ---
Author Organization [facility] Address [address] [place] [address] Care Team Providers Care Coal Pipeline Operator Name Role Phone Kayleigh Mallory WILFREDO Primary Care Provider [phone] Reason for Visit * Reason Onset Date Comments Medications Refill 08/18/2023 Encounter Details Date Type Department Care Team (Late st Contact Info) Description 08/18/2023 Telephone [facility] Rheumatology & Immunology - [facility] [address] [place], [place] [phone] Harsh Malloy, FORKLIFT OPERATOR 111 [facility] [address] [place] [address] Medications Refill Social History Tobacco [...] PEN) 40 mg/0.4 mL penIndications:Pso riatic arthropathy ([facility]) Inject 0.4 mL into the skin every 14 days. Specialty. 6 Kit 1 08/18/2023 02/02/2024 documented in this encounter Progress Notes * Dexter Byers RPH - 08/18/2023 1327 EDT Specialty Medication Refill Request Requested Medication: Humira 40 mg/0.4 ml pen into the skin every 14 days Indication: PsA A chart review of last visit, labs, and medication list has been reviewed and it has been identified this therapy should be continued. New refills have been sent in to [facility] per protocol. Dexter Byers PharmD (he/him) Ambulatory Pharmacist Clinician Rheumatology 08/18/2023 documented in this encounter Miscellaneous Notes * Telephone Encounter - Lilly Rubio - 08/18/2023 1028 EDT Medication Refill Request Medication: Humira Patient needs medication by: 08/24 Scheduled outreach date: 08/14 Pharmacy: [facility] ([facility]) [address] Next appt: 11/24/2023 documented in this [...] documented as of this encounter Care Teams Coal Pipeline Operator Relationship Specialty Start Date End Date Kayleigh Mallory FNP [address] [place] [phone] PCP - General 02/04/19 documented as of this encounter
--- OUTSIDE RECORDS SUMMARY | 2024-03-22 16:12 | XMS_ITS | Encounter Summary ---
Author Organization [facility] Address [address] [place] [address] Care Team Providers Care Feed House Supervisor Name Role Phone Kayleigh Mallory WILFREDO Primary Care Provider [phone] Encounter Details Date Type Department Care Team (Latest Contact Info) Description 02/24/2023 Specialty Pharmacy [facility] - [facility] [address] [place], [place] [address] Yamile Plaza RPH Clinical Follow-up (2x annually) [...] documented in this encounter Progress Notes * Xander Betancur - 02/24/20231406 EDT Specialty Pharmacy Documentation Medication: Humira Clinic: [facility] Rheum Reason for Encounter: Outreach Notes: Refill requested. Follow up date: 02/24/2023 Follow up reason: Outreach * Galo Elias RPH - 02/24/20237 EDT Joint pain slightly worse in cold, [...] Note - Galo Elias RPH - 02/24/2023 1407 EDTAddended by: GALO ELIAS on: 03/11/2023 13:50 Modules accepted: Orders documented in this encounter Plan of Treatment Not on file documented as of this encounter Visit Diagnoses Not on filedocumented in this encounter Historical Medications * This list may reflect changes made after this encounter. halobetasol (ULTRAVATE) 0.05 % ointment Apply topically daily. As needed for vaginal skin irritation per OBGYN 04/23/2022 estradioL (ESTRACE) 0.01 % (0.1 mg/gram) vaginal cream Place 1 g vaginally three times a week. Mon, Wed, Fri 01/02/2023 psyllium husk, with sugar, (METAMUCIL, WITH SUGAR,) 3.4 gram packetIndication s:constipation Take 2 Packets by mouth daily. added in this encounter Care Teams Feed House Supervisor Relationship Specialty Start Date End Date Kayleigh Mallory FNP [address] [place] [phone] PCP - General 02/04/19 documented as of this encounter
--- OUTSIDE RECORDS SUMMARY | 2024-03-22 16:12 | XMS_ITS | Encounter Summary ---
Author Organization [facility] Address [address] [place] [address] Care Team Providers Care Loom Changeover Operator Name Role Phone Kayleigh Mallory WILFREDO Primary Care Provider [phone] Encounter Details Date Type Department Care Team (Latest Contact Info) Description 08/18/2023 Specialty Pharmacy [facility] [address] [place] [phone] Matthew Kapadia [facility] Refill Coordination Outreach for Rheumatology [...] documented in this encounter Progress Notes * iLlly Rubio - 08/18/2023 1028 EDT Specialty Pharmacy Documentation Medication: Humira Clinic: Rheum Reason for Encounter: outreach Notes: Refill requested Follow up date: 08/18 Follow up reason: outreach documented in this encounter Plan of Treatment Not on file documented as of this encounter Visit Diagnoses Not on filedocumented in this encounter Care Teams Loom Changeover Operator Relationship Specialty Start Date End Date Kayleigh Mallory FNP 26 [facility] [address] [place] [phone] PCP - General 02/04/19 documented as of this encounter
--- OUTSIDE RECORDS SUMMARY | 2024-03-22 16:12 | XMS_ITS | Continuity of Care Document ---
Author Organization [facility] Address [address] [place] [address] Care Team Providers Care Steel Erecting Pusher Name Role Phone MAYKEL RODRÍGUEZ Primary Care Physician [phone] Encounter [facility] NBR [id number] Date(s): 12/02/23 - 12/02/23 [facility] [address] [place] [address]- Discharge Disposition: Home Allergies, Adverse Reactions, Alerts [...] 1 g, VAG, Fri/Fri/Fri, # 42.5 g, 3 Refill(s), Pharmacy: [facility], 163.83, cm, 05/26/23 15:13:00 EST, Height, 74, kg, 05/26/23 15:21:00 EST, Weight Dosing Start Date: 12/03/23 Stop Date: 11/27/24 Status: Ordered fluticasone 50 mcg/inh nasal spray [...] chew, # 90 tab, 4 Refill(s), Pharmacy: [facility], 163.83, cm, 05/26/23 15:13:00 EST, [...] Member Role: Primary Care Physician Address: Address: [address] [place] [address]- Care Team Related Persons Name: RODY HUI JR Address: Home [address] Name: SYLVESTER GARG
--- OUTSIDE RECORDS SUMMARY | 2024-03-22 16:12 | XMS_ITS | Clinical Summary ---
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 Activ e psyllium husk, [...] PEN) 40 mg/0.4 mL penIndications:P soriatic arthropathy ([facility]) Inject 0.4 mL into the skin every 14 days. Specialty. 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[facility]) 10/24/2010 Encounters Date Type Department Care Team Description 03/02/2024 [facility]ty [facility] [address] [place], [place] [address] Edna Hernandez RPH Refill Coordination Outreach for Rheumatology 02/02/2024 Telephone [facility] Rheumatology & Immunology - [address] [phone] Harsh Malloy NP Prior Auth, Medication 02/02/2024 Telephone [facility] Rheumatology & Immunology [facility] [address] [place], [place] [phone] Harsh Malloy, FINISHING ROOM OPERATOR Medications Refill 02/02/2024 Specialty Pharmacy [facility] [address] [place], [place] [address] Edna Hernandez, [facility] Refill Coordination Outreach for Rheumatology 01/05/2024 Specialty Pharmacy [facility] [address] [place], [place] [phone] Matthew Kapadia, [facility] Refill Coordination Outreach for Rheumatology 12/29/2023 Refill [facility] Rheumatology & Immunology [facility] [address] [place], [place] [phone] Harsh Malloy, FINISHING ROOM OPERATOR Medications Refill from Last 3 Months Immunizations Name Administration Dates Next Due Covid-19 mRNA Vaccine (PFIZE R COVID-19) PF 0.3 ml IM (12 yrs+) 02/11/2022,08/25/2021,01/30/2021,03/0 06/2020,06/07/2020 07/27/2020 Covid-19 mRNA-LNP Bivalent V accine ([employer] BIVALENT VACCINE) PF 0.3 mL IM (12 [...] 27.66 05/22/2023 1354 EST Plan of Treatment Health Maintenance Due Date Last Done Comments Hepatitis B Vaccine (1 of 3 - 19+ 3-dose series) 08/04/1987 COVID-19 Vaccine (2023-2 5 season) 2023 10/11/2022, 02/11/2022, 08/25/2021, Additional history exists Hepatitis [...] C Antibody Negative Negative 02/28/2022 16:05 EDT [facility] Blood VENOUS BLOOD / Unknown Venipuncture / Unknown 02/28/2022 11:36 EDT 02/28/2022 12:17 EDT us Harsh Malloy NP CHEMISTRY & BLOOD GAS ORDER GABY Final Result [facility] [address] [place] [address] from Last 3 Months or Most Recently Relevant to Health Maintenance Insurance [facility] Care Teams Onboarding Specialist Relationship Specialty Start Date End Date Kayleigh Mallory FNP [address] [place] [address] [address] [place] [address] PCP - General 02/04/19
--- OUTSIDE RECORDS SUMMARY | 2024-03-22 16:12 | XMS_ITS | Encounter Summary ---
Author Organization [facility] Address [address] [place] [address] Care Team Providers Care Manager Express Name Role Phone Kayleigh Mallory WILFREDO Primary Care Provider [phone] Reason for Visit * Reason Comments Medications Refill Encounter Details Date Type Department Care Team (Late st Contact Info) Description 03/21/2023 Refill [facility] Rheumatology & Immunology - [facility] [address] [place], [place] [address] Harsh Malloy, MANAGER INVESTMENT BANKING 111 [facility], [address] [place] [address] Medications Refill Social History Tobacco [...] EVERY 3 MONTHS 120 Tablet 1 03/21/2023 documented in this encounter Plan of Treatment Not on file documented as of this encounter Visit Diagnoses Not on filedocumented in this encounter Discontinued Medications Medication Sig Discontinue Reason Start Date End Da te methotrexate 2.5 mg tablet TAKE 10 TABLETS BY MOUTH WEEKLY LABS ARE NEEDED EVERY 3 MONTHS 11/04/2022 03/21/2023 documented as of this encounter Care Teams Manager Express Relationship Specialty Start Date End Date Kayleigh Mallory FNP [address] [place] [address] [address] [place] [phone] PCP - General 02/04/19 documented as of this encounter
--- OUTSIDE RECORDS SUMMARY | 2024-03-22 16:13 | XMS_ITS | Encounter Summary ---
Author Organization [facility] Address [address] [place] [address] Care Team Providers Care Director Sports Name Role Phone Kayleigh Mallory WILFREDO Primary Care Provider [phone] Encounter Details Date Type Department Care Team (Late st Contact Info) Description 06/21/2021 Specialty Pharmacy [facility] Ambulatory Pharmacy - [facility] [address] [place] [address] Eric Redmond RPH Social History Tobacco Use [...] on filedocumented in this encounter Care Teams Director Sports Relationship Specialty Start Date End Date Kayleigh Mallory FNP [address] [place] [address] [address] [place] [phone] PCP - General 02/04/19 documented as of this encounter
--- OUTSIDE RECORDS SUMMARY | 2024-03-22 16:13 | XMS_ITS | Encounter Summary ---
Author Organization [facility] Address [address] [place] [address] Care Team Providers Care Gum Machine Filler Name Role Phone Kayleigh Mallory WILFREDO Primary Care Provider Encounter Details Date Type Department Care Team (Late st Contact Info) Description 05/21/2021 Specialty Pharmacy [facility] Ambulatory Pharmacy - [facility] [address] [place] [address] Eric Redmond RPH Social History Tobacco Use [...] on filedocumented in this encounter Care Teams Gum Machine Filler Relationship Specialty Start Date End Date Kayleigh Mallory FNP [address] [place] [address] [address] [place] [phone] PCP - General 02/04/19 documented as of this encounter
--- OUTSIDE RECORDS SUMMARY | 2024-03-22 16:13 | XMS_ITS | Encounter Summary ---
Author Organization [facility] Address [address] [place] [address] Care Team Providers Care Production Line Welder Name Role Phone Kayleigh Mallory WILFREDO Primary Care Provider [phone] Encounter Details Date Type Department Care Team (Late st Contact Info) Description 02/26/2021 Specialty Pharmacy [facility] - [facility] [address] [place] [address] Eric Redmond RPH Social History Tobacco Use [...] on filedocumented in this encounter Care Teams Production Line Welder Relationship Specialty Start Date End Date Kayleigh Mallory FNP [address] [place] [address] [address] [place] [phone] PCP - General 02/04/19 documented as of this encounter
--- OUTSIDE RECORDS SUMMARY | 2024-03-22 16:13 | XMS_ITS | Encounter Summary ---
Author Organization [facility] Address [address] [place] [address] Care Team Providers Care Parachute Crown Sewer Name Role Phone Kayleigh Mallory WILFREDO Primary Care Provider [phone] Encounter Details Date Type Department Care Team (Late st Contact Info) Description 11/15/2020 Specialty Pharmacy [facility] Ambulatory Pharmacy - [facility] [address] [place] [address] Eric Redmond RPH Social History Tobacco Use [...] on filedocumented in this encounter Care Teams Parachute Crown Sewer Relationship Specialty Start Date End Date Kayleigh Mallory FNP [address] [place] [address] [address] [place] [phone] PCP - General 02/04/19 documented as of this encounter
--- OUTSIDE RECORDS SUMMARY | 2024-03-22 16:13 | XMS_ITS | Encounter Summary ---
Author Organization [facility] Address [address] [place] [address] Care Team Providers Care Clinic Manager Name Role Phone Kayleigh Mallory WILFREDO Primary Care Provider [phone] Encounter Details Date Type Department Care Team (Late st Contact Info) Description 04/23/2021 Specialty Pharmacy [facility] Amb[facility] - [facility] [address] [place] [address] Eric Redmond RPH Social History Tobacco Use [...] on filedocumented in this encounter Care Teams Clinic Manager Relationship Specialty Start Date End Date Kayleigh Mallory FNP [address] [place] [address] [address] [place] [address] PCP - General 02/04/19 documented as of this encounter
--- OUTSIDE RECORDS SUMMARY | 2024-03-22 16:13 | XMS_ITS | Encounter Summary ---
Author Organization [facility] Address [address] [place] [address] Care Team Providers Care Fashion Photographer Name Role Phone Kayleigh Mallory WILFREDO Primary Care Provider [phone] Reason for Visit * Reason Comments Follow-up Encounter Details Date Type Department Care Team (Late st Contact Info) Description 08/28/2022 15:00 EDT Office Visit [facility] Rheumatology & Immunology - [address] [id number] Harsh Malloy, SLIDE MACHINE TENDER 111 [facility], [facility] [address] [place] [address] Psoriatic arthropathy ([facility]) (Primary Dx); Encounter for long-term (current) use [...] EDT documented in this encounter Functional Status * [...] this encounter Visit Diagnoses Diagnosis Psoriatic arthropathy ([facility])- Primary Psoriatic arthropathy Encounter for long-term (current) use of medications Encounter for long-term (current) use of other medications documented in this encounter Care Teams Fashion Photographer Relationship Specialty Start Date End Date Kayleigh Mallory FNP [address] [place] [phone] PCP - General 02/04/19 documented as of this encounter
--- OUTSIDE RECORDS SUMMARY | 2024-03-22 16:13 | XMS_ITS | Encounter Summary ---
Author Organization [facility] Address [address] [place] [address] Care Team Providers Care Cook Seafood Name Role Phone Kayleigh Mallory WILFREDO Primary Care Provider [phone] Reason for Visit * Reason Onset Date Comments Other Medications Refill 12/17/2020 Medications Refill 12/19/2020 Encounter Details Date Type Department Care Team (Late st Contact Info) Description 12/09/2020 Refill [facility] Rheumatology & Immunology - [facility] [address] [place], [place] [phone] Harsh Malloy NP 111 [facility], [address] [place] [address] Other; Medications Refill; Medications Refill [...] this encounter Visit Diagnoses Diagnosis Psoriatic arthritis ([facility])- Primary Psoriatic arthropathy Encounter for long-term (current) use of medications Encounter for long-term (current) use of other medications Long-term use of high-risk medication documented in this encounter Care Teams Cook Seafood Relationship Specialty Start Date End Date Kayleigh Mallory FNP [address] [place] [address] [address] [place] [address] PCP - General 02/04/19 documented as of this encounter
--- OUTSIDE RECORDS SUMMARY | 2024-03-22 16:13 | XMS_ITS | Encounter Summary ---
Author Organization [facility] Address [address] [place] [address] Care Team Providers Care Hospitalist Name Role Phone Kayleigh Mallory WILFREDO Primary Care Provider [phone] Encounter Details Date Type Department Care Team (Late st Contact Info) Description 11/02/2021 Specialty Pharmacy [facility] Ambulatory Pharmacy - [facility] [address] [place], [place] [address] Damaris Simmons RPH Social History Tobacco Use [...] on filedocumented in this encounter Care Teams Hospitalist Relationship Specialty Start Date End Date Kayleigh Mallory FNP [address] [place] [address] [address] [place] [address] PCP - General 02/04/19 documented as of this encounter
--- OUTSIDE RECORDS SUMMARY | 2024-03-22 16:13 | XMS_ITS | Encounter Summary ---
Author Organization [facility] Address [address] [place] [address] Care Team Providers Care Accounting Professional Name Role Phone Kayleigh Mallory WILFREDO Primary Care Provider [phone] Reason for Visit * Reason Comments Medications Refill Encounter Details Date Type Department Care Team (Late st Contact Info) Description 05/20/2022 Refill [facility] Rheumatology & Immunology - [facility] [address] [place], [place] [address] Harsh Malloy, MICROSOFT BI ARCHITECT 111 [facility], [address] [place] [address] Medications Refill Social History Tobacco [...] on filedocumented in this encounter Care Teams Accounting Professional Relationship Specialty Start Date End Date Kayleigh Mallory FNP [address] [place] [phone] PCP - General 02/04/19 documented as of this encounter
--- OUTSIDE RECORDS SUMMARY | 2024-03-22 16:13 | XMS_ITS | Encounter Summary ---
Author Organization [facility] Address [address] [place] [address] Care Team Providers Care Fraud Investigator Name Role Phone Kayleigh Mallory WILFREDO Primary Care Provider [phone] Encounter Details Date Type Department Care Team (Late st Contact Info) Description 03/17/2022 Lab Requisition [facility] Pathology & Laboratory Medicine - [address] [address] Outr Resulting Lab, Provider Social History Tobacco [...] Priority Date/Time Associated Diagnosis Comments ZZCOVID-19 TEST [facility] PCR Today 03/16/2022 12:15 EST COVID-19 TESTING Routine 03/16/2022 12:1 5 EST documented in this encounter Results * COVID-19 TEST [facility] PCR (03/16/2022 12:15 EST) Swab 03/16/2022 12:1 5 EST 03/17/2022 17:28 EST us Provider Outr Resulting Lab MICROBIOLOGY - GENER AL ORDERABLES Final Result [facility] [address] [place] [address] * COVID-19 TESTING (03/16/2022 12:15 EST) COVID-19 rt-PCR Result Negative Negative 03/18/2022 12:57 EST [facility] Comment: This test has [...] history, and epidemiological information. Performed on the MitoProd Fusion instrument Performing Lab [place] [facility] 03/18/2022 12:57 EST [facility] Swab 03/16/2022 12:1 5 EST 03/17/2022 17:28 EST us Provider Outr Resulting Lab MICROBIOLOGY - GENER AL ORDERABLES Final Result [facility] [address] [place] [address] documented in this encounter Visit Diagnoses Not on filedocumented in this encounter Care Teams Fraud Investigator Relationship Specialty Start Date End Date Kayleigh Mallory FNP [address] [place] [address] [place] [phone] PCP - General 02/04/19 documented as of this encounter
--- OUTSIDE RECORDS SUMMARY | 2024-03-22 16:13 | XMS_ITS | Encounter Summary ---
Author Organization [facility] Address [address] [place] [address] Care Team Providers Care Excellence Leader Name Role Phone Kayleigh Mallory WILFREDO Primary Care Provider [phone] Reason for Visit * Reason Onset Date Comments Medications Refill 09/13/2022 Humira needs refills Encounter Details Date Type Department Care Team (Late st Contact Info) Description 09/13/2022 Telephone [facility] Rheumatology & Immunology - [facility] [address] [place], [place] [phone] Harsh Malloy, ELBERT 111 [facility], [address] [place] [address] Medications Refill (Humira needs refills) [...] Date adalimumab (HUMIRA,CF, PEN) 40 mg/0.4 mL pen [...] now Date of last fill: 08/19 Pharmacy: [facility] Next appt: 03/03/2023 Renewal of Humira is required for continued use; order sent per refill protocol to [facility] for dispensing. Follow-up visit scheduled with Harsh Malloy on 03/03/23. Yamile Plaza, PharmD, BCPS Pharmacist Ambulatory Clinician - Rheumatology documented [...] documented as of this encounter Care Teams Excellence Leader Relationship Specialty Start Date End Date Kayleigh Mallory FNP [address] [place] [phone] PCP - General 02/04/19 documented as of this encounter
--- OUTSIDE RECORDS SUMMARY | 2024-03-22 16:13 | XMS_ITS | Encounter Summary ---
Author Organization [facility] Address [address] [place] [address] Care Team Providers Care Helicopter Engineer Name Role Phone Kayleigh Mallory WILFREDO Primary Care Provider [phone] Encounter Details Date Type Department Care Team (Late st Contact Info) Description 04/15/2022 Specialty Pharmacy [facility] - [facility] [address] [place] [address] Damaris Simmons RPH Social History Tobacco Use [...] documented in this encounter Progress Notes * Migdalia Mejia - 04/15/2022 0940 EST [facility] Specialty Pharmacy Delivery Information Hours: Friday-Friday 8:30am - 5:00pm *Pharmacist available non categorical preschool teacher 18/11 Delivery Service: FedEx Delivery Window: None Specified Date of Delivery: Fri (04/24) Tracking # : [id number] documented in this encounter Plan of Treatment Not on file documented as of this encounter Visit Diagnoses Not on filedocumented in this encounter Care Teams Helicopter Engineer Relationship Specialty Start Date End Date Kayleigh Mallory FNP [address] [place] [phone] PCP - General 02/04/19 documented as of this encounter
--- OUTSIDE RECORDS SUMMARY | 2024-03-22 16:13 | XMS_ITS | Encounter Summary ---
Author Organization [facility] Address [address] [place] [address] Care Team Providers Care Digital Marketing Executive Name Role Phone Kayleigh Mallory WILFREDO Primary Care Provider [phone] Encounter Details Date Type Department Care Team (Late st Contact Info) Description 10/05/2021 Specialty Pharmacy [facility] Ambulatory Pharmacy - [facility] [address] [place], [place] [address] Damaris Simmons RPH Social History Tobacco Use [...] filedocumented in this encounter Care Teams Digital Marketing Executive Relationship Specialty Start Date End Date Kayleigh Mallory FNP [address] [place] [address] [address] [place] [address] PCP - General 02/04/19 documented as of this encounter
--- OUTSIDE RECORDS SUMMARY | 2024-03-22 16:13 | XMS_ITS | Encounter Summary ---
Author Organization [facility] Address [address] [place] [address] Care Team Providers Care Utilities Operator Name Role Phone Kayleigh Mallory WILFREDO Primary Care Provider [phone] Encounter Details Date Type Department Care Team (Late st Contact Info) Description 12/20/2020 Specialty Pharmacy [facility] - [facility] [address] [place] [address] Eric Redmond RPH Social History Tobacco Use [...] on filedocumented in this encounter Care Teams Utilities Operator Relationship Specialty Start Date End Date Kayleigh Mallory FNP [address] [place] [address] [address] [place] [address] PCP - General 02/04/19 documented as of this encounter
--- OUTSIDE RECORDS SUMMARY | 2024-03-22 16:13 | XMS_ITS | Encounter Summary ---
Author Organization [facility] Address [address] [place] [address] Care Team Providers Care Skidder Name Role Phone Kayleigh Mallory WILFREDO Primary Care Provider [phone] Reason for Visit * Reason Onset Date Comments Medications Refill 12/20/2020 Encounter Details Date Type Department Care Team (Late st Contact Info) Description 12/20/2020 Telephone [facility] Rheumatology & Immunology - [facility] [address] [place], [place] [phone] Harsh Malloy, DRAW MACHINE OPERATOR 111 [facility], [facility] [address] [place] [address] Medications Refill Social [...] Telephone Encounter - Rodrigue Saez - 12/20/2020 1337 EDT Medication Request Medication: humira Medication refill: yes Medication dose change: no Refill due: 12/20/20 Pharmacy: [facility] Renewal of Humira is required for continued use; order sent per refill protocol to [facility] for dispensing. Follow-up visit scheduled with Harsh Malloy on 03/01/21. Eric Redmond, Pharm.D., [facility] Pharmacist Clinician - Rheumatology 12/20/2020 documented in [...] documented as of this encounter Care Teams Skidder Relationship Specialty Start Date End Date Kayleigh Mallory FNP 26 [facility] [address] [place] [address] PCP - General 02/04/19 documented as of this encounter
--- OUTSIDE RECORDS SUMMARY | 2024-03-22 16:13 | XMS_ITS | Encounter Summary ---
Author Organization [facility] Address [address] [place] [address] Care Team Providers Care Membership Solicitor Name Role Phone Kayleigh Mallory WILFREDO Primary Care Provider [phone] Reason for Visit * Reason Comments Medications Refill Encounter Details Date Type Department Care Team (Late st Contact Info) Description 05/20/2022 Refill [facility] Rheumatology & Immunology - [facility] [address] [place], [place] [address] Harsh Malloy, MUSHROOM SPAWN MAKER 111 [facility], [address] [place] [address] Medications Refill Social History Tobacco [...] Labs are needed lorena 40 Tablet 05/20/2022 documented in this encounter Plan of Treatment Not on file documented as of this encounter Visit Diagnoses Diagnosis Psoriatic arthropathy ([facility])- Primary Psoriatic arthropathy Encounter for long-term (current) use of medications Encounter for long-term (current) use of other medications documented in this encounter Discontinued Medications Medication Sig Discontinue Reason Start Date End Da te methotrexate 2.5 mg tablet Take 10 Tablets by mouth once a week. 02/18/2022 05/20/2022 documented as of this encounter Care Teams Membership Solicitor Relationship Specialty Start Date End Date Kayleigh Mallory FNP [address] [place] [address] [address] [place] [address] PCP - General 02/04/19 documented as of this encounter
--- OUTSIDE RECORDS SUMMARY | 2024-03-22 16:13 | XMS_ITS | Encounter Summary ---
Author Organization [facility] Address [address] [place] [address] Care Team Providers Care U.S. Commissioner Name Role Phone Kayleigh Mallory WILFREDO Primary Care Provider [phone] Reason for Visit * Reason Comments Medications Refill Encounter Details Date Type Department Care Team (Late st Contact Info) Description 02/19/2022 Refill [facility] Rheumatology & Immunology - [facility] [address] [place], [place] [address] Harsh Malloy, ROCKET SCIENTIST 111 [facility], [address] [place] [address] Medications Refill Social History Tobacco [...] on filedocumented in this encounter Care Teams U.S. Commissioner Relationship Specialty Start Date End Date Kayleigh Mallory FNP [address] [place] [phone] PCP - General 02/04/19 documented as of this encounter
--- OUTSIDE RECORDS SUMMARY | 2024-03-22 16:13 | XMS_ITS | Encounter Summary ---
Author Organization [facility] Address [address] [place] [address] Care Team Providers Care Tension Worker Name Role Phone Kayleigh Mallory WILFREDO Primary Care Provider [phone] Encounter Details Date Type Department Care Team (Latest Contact Info) Description 12/06/2021 7:11 EDT - 12/06/2021 23:59 EDT Hospital Encounter [facility] [address] [place] [address] Discharge Disposition: Home or Self Care Social [...] 02/02/2018 11:27 EDT documented in this encounter Discharge Instructions * Discharge Instructions* [...] this encounter Medications at Time of Discharge acetaminophen (TYLENOL) 500 mg tablet Take 2 Tablets by mouth every 6 hours as needed. cetirizine (ZYRTEC) 10 mg tablet Take 1 Tablet by mouth daily. DOCUSATE SODIUM (COLACE ORAL)Indications:N eed for pneumococcal vaccination,Psoria tic arthropathy (HCC-CMS),Encounte r for long-term (current) use of medications,Hammer toes of both feet,Psoriasis with arthropathy (HCC-CMS) Take by mouth. fluocinonide (LIDEX) 0.05 % ointment Apply daily to rash if needed 1 Tube 3 05/07/2017 FLUTICASONE PROPIONATE (FLUTICASONE INHL) Inhale as directed daily. lisinopril (PRINIVIL, ZESTRIL) 10 mg tablet Take 1 Tablet by mouth daily. loratadine-pseudoe phedrine (CLARITIN-D 24-HOUR) 10-240 mg per tablet Take [...] 14 days. Specialty. 6 Kit 1 08/28/2021 2 folic acid (FOLVITE) 1 mg tablet Take 1 Tablet by mouth daily. 90 Tablet 3 08/28/2021 3 methotrexate 2.5 mg tablet Take 10 Tablets by mouth once a week. 120 Tablet 08/28/2021 2 documented as of this encounter Discharge Disposition Disposition Code Departure Means Destination Home or Self Intermediate documented in this encounter Progress Notes * Zo Everett RN - 12/06/2021 1000 EDT Nina Boothe arrived to [facility] for and Evusheld injection [...] 12/06/2021 documented in this encounter Care Teams Tension Worker Relationship Specialty Start Date End Date Kayleigh Mallory FNP [address] [place] [address] [address] [place] [address] PCP - General 02/04/19 documented as of this encounter
--- OUTSIDE RECORDS SUMMARY | 2024-03-22 16:13 | XMS_ITS | Encounter Summary ---
Author Organization [facility] Address [address] [place] [address] Care Team Providers Care Booster Assembler Name Role Phone Kayleigh Mallory WILFREDO Primary Care Provider [phone] Reason for Visit * Reason Comments Follow-up 6 month Joint Pain Toes - Sore,Consiten tly bothersome. Right hand issues - increasing Encounter Details Date Type Department Care Team (Late st Contact Info) Description 03/01/2021 10:00 EDT Office Visit [facility] Rheumatology & Immunology - [address] [id number] Harsh Malloy, ELBERT 111 [facility], [address] [place] [address] Psoriatic arthritis (HCC-CMS) (HCC) (HCC-CMS) [...] ONCE A WEEK 120 Tablet 1 03/01/2021 2 adalimumab (HUMIRA,CF, PEN) 40 mg/0.4 mL pen Inject 0.4 mL into the skin every 14 days. Specialty. 6 Kit 1 03/01/2021 2 documented in this encounter Progress Notes * Harsh Malloy R, STATE FARM AGENT - 03/01/2021 1000 EDT Patient ID: Reilly [...] Problem List Diagnosis ??? Psoriasis with arthropathy ([facility]) ([facility]) ??? Encounter for long-term (current) use of medications ??? Hypertensive disorder ??? Environmental allergies ??? Psoriasis ??? Psoriasis with arthropathy (HCC-CMS) ([facility]) Past Medical History: Diagnosis Date ??? Abnormal [...] 3-4 months 5. Completed covid vaccine - Photowhoa 1-3 Pneumonia 13, pneumonia 23 and shingrix 6 pes planus - recommend arch supports Encounter Diagnoses Name Primary? Psoriatic arthritis ([facility]) ([facility]) Yes ??? Encounter for long-term (current) use of medications PLAN: 1. Continue current meds. 2. Labs every 3-4 months 3. Try padding out or stretching your shoes 4. F/u 6 months in person 1. Psoriatic arthritis ([facility]) ([facility]) 2. Encounter for long-term (current) use of medications No orders of the defined types were placed in this encounter. Barriers to learning identified: No Patient verbalizes understanding and agrees with plan Yes I was directly supervised by: Dr. Gray . They were present in clinic and available for consult if needed. Harsh Malloy APRN 03/01/2021 10:07 I spent a total of 30 minutes on the date of this encountermeeting with the patient and reviewing documentation/coordinating care as described in the above note. No procedures were performed at the time of the visit. documented in this encounter Plan of Treatment Not on file documented as of this encounter Visit Diagnoses Diagnosis Psoriatic arthritis ([facility])- Primary Psoriatic arthropathy Encounter for long-term (current) use of medications Encounter for long-term (current) use of other medications documented in this encounter Discontinued Medications Medication Sig Discontinue Reason Start Date End Da te methotrexate 2.5 mg tablet TAKE 10 TABLETS BY MOUTH ONCE A WEEK * please get labs JOISAH Reorder 12/14/2020 03/01/2021 adalimumab (HUMIRA,CF, PEN) 40 mg/0.4 mL pen Inject 0.4 mL into the skin every 14 days. Specialty. Reorder 12/20/2020 03/01/2021 documented as of this encounter Care Teams Booster Assembler Relationship Specialty Start Date End Date Kayleigh Mallory FNP [address] [place] [address] [place] [phone] PCP - General 02/04/19 documented as of this encounter
--- OUTSIDE RECORDS SUMMARY | 2024-03-22 16:13 | XMS_ITS | Encounter Summary ---
Author Organization [facility] Address [address] [place] [address] Care Team Providers Care Lard Mixer Name Role Phone Kayleigh Mallory WILFREDO Primary Care Provider [phone] Encounter Details Date Type Department Care Team (Late st Contact Info) Description 01/31/2022 Specialty Pharmacy [facility] Ambulatory Pharmacy - [facility] [address] [place], [place] [address] Damaris Simmons RPH Social History Tobacco Use [...] documented in this encounter Progress Notes * Mirtha Holbrook - 01/31/2022 1127 EDT Specialty Pharmacy Documentation Medication: Humira Clinic: [facility] Reason for Encounter: Outreach Notes: Refill Payable on or after 02/03/22 Follow up date: 02/03 Follow up reason: Outreach * Iram Gates - 01/31/2022 1127 EDT [facility] Specialty Pharmacy Delivery Information Hours: Friday-Friday 8:30am - 5:00pm *Pharmacist available talent acquisition operations manager 18/11 Delivery Service: FedEx Delivery Window: None Specified Date of Delivery: 02/13/22 Tracking # : [id number] documented in this encounter Plan of Treatment Not on file documented as of this encounter Visit Diagnoses Not on filedocumented in this encounter Care Teams Lard Mixer Relationship Specialty Start Date End Date Kayleigh Mallory FNP 26 [facility] [address] [place] [phone] PCP - General 02/04/19 documented as of this encounter
--- OUTSIDE RECORDS SUMMARY | 2024-03-22 16:13 | XMS_ITS | Encounter Summary ---
Author Organization [facility] Address [address] [place] [address] Care Team Providers Care Web Operations Lead Name Role Phone Kayleigh Mallory WILFREDO Primary Care Provider Encounter Details Date Type Department Care Team (Late st Contact Info) Description 05/08/2021 Abstract [facility] Rheumatology & Immunology - [facility] [address] [place], [place] [phone] Harsh Malloy, ELBERT 111 [facility], [address] [place] [address] Social History Tobacco Use Types [...] 05/08/2021 Harsh Malloy NP CHEMISTRY & BLOOD GAS ORDER GABY Final Result [facility] POINT [facility] C[facility] * COMPLETE BLOOD COUNT [...] VENOUS BLOOD / Unknown 05/08/2021 Harsh Malloy CUPOLA TENDER PACKAGES & DNA PROBE ORDERA BLES Final Result [facility] documented in this encounter Visit Diagnoses Not on filedocumented in this encounter Care Teams Web Operations Lead Relationship Specialty Start Date End Date Kayleigh Mallory FNP [address] [place] [address] [address] [place] [address] PCP - General 02/04/19 documented as of this encounter
--- OUTSIDE RECORDS SUMMARY | 2024-03-22 16:13 | XMS_ITS | Encounter Summary ---
Author Organization [facility] Address [address] [place] [address] Care Team Providers Care Firearms Inspector Name Role Phone Kayleigh Mallory WILFREDO Primary Care Provider [phone] Reason for Visit * Laboratory Services (Routine/Next Available) - Order Cancelled Specialty Diagnoses / Procedures Referred By Twyla love Referred To Contact Diagnoses Psoriatic arthritis ([facility]) Long-term use of high-risk medication Procedures COMPREHENSIVE METABOLIC PANEL (CMP) Harsh Malloy NP Phone: tel: fax: Referral ID Status Reason Start Date Expiration Date V isits Requested Visits Authorized [id number] Order Cancelled 05/08/2021 4 4 Encounter Details Date Type Department Care Team (Late st Contact Info) Description 08/28/2021 11:00 EDT Phlebotomy Only [facility] ED Center 2 Phlebotomy [address] [place], [place] [address] Dialysis Chief Equipment Technician, Acc Phlebotomy Psoriatic arthritis ([facility]) (HCC) ([facility]); Long-term use of high-risk medication Social History [...] DIFFERENTIAL Routine 08/28/2021 11:04 EDT Psoriatic arthritis ([facility]) ([facility]) ([facility]) Long-term use of high-risk medication COMPREHENSIVE METABOLIC PANEL (CMP) Routine 08/28/2021 11:04 EDT Psoriatic arthritis ([facility]) ([facility]) ([facility]) Long-term use of high-risk medication documented in this encounter Results * (ABNORMAL) COMPLETE BLOOD COUNT AND DIFFERENTIAL (08/28/2021 11:04 EDT) WBC 7.00 4.00 - 12.40 K/cmm 08/28/2021 11:19 [facility] RBC 4.48 3.86 - 5.04 M/cmm 08/28/2021 11:19 [facility] Hemoglobin 14.2 11.6 - 15.2 gm/dL 08/28/2021 11:19 [facility] HCT 41.4 34.9 - 44.4 % 08/28/2021 11:19 [facility] MCV 92 81 - 98 fl 08/28/2021 11:19 [facility] MCH 31.7 26.7 - 33.3 pg 08/28/2021 11:19 [facility] MCHC 34.3 32.1 - 35.9 gm/dL 08/28/2021 11:19 [facility] RDW-CV 13.9 <14.7 % 08/28/2021 11:19 [facility] RDW-SD 47.3 <50.4 fl 08/28/2021 11:19 [facility] PLT 265 141 - 377 K/cmm 08/28/2021 11:19 [facility] MPV 9.5 9.5 - 12.7 fl 08/28/2021 11:19 [facility] % Neutrophils 62.0 % 08/28/2021 11:19 [facility] % Lymphocytes 24.1 % 08/28/2021 11:19 [facility] % Monocytes 11.6 % 08/28/2021 11:19 [facility] % Eosinophils 1.3 % 08/28/2021 11:19 [facility] % Basophils 0.9 % 08/28/2021 11:19 [facility] % Immature Grans 0.1 % 08/29/19 11:19 [facility] Absolute Neutrophils 4.34 2.20 - 8.85 K/cmm 08/28/2021 11:19 [facility] Absolute Lymphocytes 1.69 1.09 - 3.30 K/cmm 08/28/2021 11:19 [facility] Absolute Monocytes 0.81(H) 0.10 - 0.80 K/cmm 08/28/2021 11:19 [facility] Absolute Eosinophils 0.09 0.03 - 0.61 K/cmm 08/28/2021 11:19 [facility] ABS Basophils 0.06 0.01 - 0.11 K/cmm 08/28/2021 11:19 [facility] Absolute Immature Grans 0.01 0.00 - 0.06 K/cmm 08/28/2021 11:19 [facility] Type of Differential: Auto 08/28/2021 11:19 [facility] Blood VENOUS BLOOD / Unknown Venipuncture / Unknown 08/28/2021 11:04 EDT 08/28/2021 11:08 EDT us Harsh Malloy PURCHASING ASSOCIATE PACKAGES & DNA PROBE ORDERA BLES Final Result [facility] [address] [place] [address] * COMPREHENSIVE METABOLIC PANEL (CMP) (08/28/2021 11:04 EDT) Sodium 136 136 - 145 mmol/L 08/28/2021 11:54 [facility] Potassium 4.1 3.5 - 5.0 mmol/L 08/28/2021 11:54 [facility] Chloride 100 96 - 110 mmol/L 08/28/2021 11:54 [facility] CO2 Total 28 22 - 32 mmol/L 08/28/2021 11:54 [facility] Glucose 89 70 - 100 mg/dL 08/28/2021 11:54 [facility] BUN 18 10 - 26 mg/dL 08/28/2021 11:54 [facility] Creatinine 0.84 0.52 - 1.04 mg/dL 08/28/2021 11:54 [facility] eGFR 83 >60 mL/min/1.7 3m2 08/28/2021 11:54 [facility] Total Protein 7.0 6.3 - 8.2 g/dL 08/28/2021 11:54 [facility] Albumin 4.2 3.4 - 4.9 g/dL 08/28/2021 11:54 [facility] Alkaline Phosphatase 65 38 - 126 U/L 08/28/2021 11:54 [facility] AST 29 15 - 46 U/L 08/28/2021 11:54 [facility] ALT 14 <35 U/L 08/28/2021 11:54 [facility] Bilirubin, Total <0.5 <1.4 mg/dL 08/29/19 11:54 EDT [facility] Calcium 8.9 8.5 - 10.5 mg/dL 08/28/2021 11:54 EDT [facility] Albumin/Globulin Ratio 1.5 1.0 - 2.5 08/28/2021 11:54 EDT [facility] Anion Gap 8 5 - 14 08/28/2021 11:54 EDT [facility] Blood VENOUS BLOOD / Unknown Venipuncture / Unknown 08/28/2021 11:04 EDT 08/28/2021 11:22 EDT us Harsh Malloy PURCHASING ASSOCIATE CHEMISTRY & BLOOD GAS ORDER GABY Final Result [facility] [address] [place] [address] documented in this encounter Visit Diagnoses Diagnosis Psoriatic arthritis ([facility]) Psoriatic arthropathy Long-term use of high-risk medication documented in this encounter Care Teams Firearms Inspector Relationship Specialty Start Date End Date Kayleigh Mallory FNP [address] [facility] [address] [place] [phone] PCP - General 02/04/19 documented as of this encounter
--- OUTSIDE RECORDS SUMMARY | 2024-03-22 16:13 | XMS_ITS | Encounter Summary ---
Author Organization [facility] Address [address] [place] [address] Care Team Providers Care Co Founder And Chairman Name Role Phone Kayleigh Mallory WILFREDO Primary Care Provider [phone] Encounter Details Date Type Department Care Team (Late st Contact Info) Description 05/20/2022 Specialty Pharmacy [facility] Ambulatory Pharmacy - [facility] [address] [place], [place] [address] Damaris Simmons RPH Social History Tobacco Use [...] on filedocumented in this encounter Care Teams Co Founder And Chairman Relationship Specialty Start Date End Date Kayleigh Mallory FNP [address] [place] [address] [address] [place] [address] PCP - General 02/04/19 documented as of this encounter
--- OUTSIDE RECORDS SUMMARY | 2024-03-22 16:13 | XMS_ITS | Encounter Summary ---
Author Organization [facility] Address [address] [place] [address] Care Team Providers Care Pad Machine Offbearer Name Role Phone Kayleigh Mallory WILFREDO Primary Care Provider [phone] Encounter Details Date Type Department Care Team (Late st Contact Info) Description 01/11/2022 Specialty Pharmacy [facility] Ambulatory Pharmacy - [facility] [address] [place] [address] Yamile Plaza RPH Social History Tobacco Use [...] * Migdalia Mejia - 01/11/2022 1526 EDT [facility] Specialty Pharmacy Delivery Information Hours: Friday-Friday 8:30am - 5:00pm *Pharmacist available recreational aide 18/11 Delivery Service: [employer] Delivery Window: None Specified Date of Delivery: Fri (01/18) Tracking # : [id number] documented in this encounter Plan of Treatment Not on file documented as of this encounter Visit Diagnoses Not on filedocumented in this encounter Care Teams Pad Machine Offbearer Relationship Specialty Start Date End Date Kayleigh Mallory FNP [address] [place] [phone] PCP - General 02/04/19 documented as of this encounter
--- OUTSIDE RECORDS SUMMARY | 2024-03-22 16:13 | XMS_ITS | Encounter Summary ---
Author Organization [facility] Address [address] [place] [address] Care Team Providers Care Criminal Justice Social Worker Name Role Phone Kayleigh Mallory WILFREDO Primary Care Provider [phone] Encounter Details Date Type Department Care Team (Late st Contact Info) Description 03/12/2022 Specialty Pharmacy [facility] Amb[facility] - [facility] [address] [place], [place] [address] Damaris Simmons RPH Social History Tobacco Use [...] on filedocumented in this encounter Care Teams Criminal Justice Social Worker Relationship Specialty Start Date End Date Kayleigh Mallory FNP [address] [place] [address] [address] [place] [address] PCP - General 02/04/19 documented as of this encounter
--- OUTSIDE RECORDS SUMMARY | 2024-03-22 16:13 | XMS_ITS | Encounter Summary ---
Author Organization [facility] Address [address] [place] [address] Care Team Providers Care Metal Furniture Assembly Supervisor Name Role Phone Kayleigh Mallory WILFREDO Primary Care Provider [phone] Reason for Visit * Reason Comments Follow-up 6 mo f/u, PSA Encounter Details Date Type Department Care Team (Late st Contact Info) Description 02/28/2022 10:30 EDT Office Visit [facility] Rheumatology & Immunology - [address] [id number] Harsh Malloy, ELBERT [address] [facility], [address] [place] [address] Psoriasis with arthropathy (HCC-CMS) (Primary [...] recommend arch supports Pfizer 1-4 evusheld 12/06/21 [id number] and therapy plan placed Encounter Diagnoses Name [...] C Antibody Negative Negative 02/28/2022 16:05 EDT [facility] Blood VENOUS BLOOD / Unknown Venipuncture / Unknown 02/28/2022 11:36 EDT 02/28/2022 12:17 EDT us Harsh Malloy SANDWICH MACHINE OPERATOR CHEMISTRY & BLOOD GAS ORDER GABY Final Result Performing Organization Address City/[facility]/ZIP Co de Phone Number [facility] [address] [place] [address] * HEPATITIS B SURFACE ANTIGEN (02/28/2022 11:36 EDT) Hep B Surface Ag Negative Negative 02/28/2022 15:38 EDT [facility] Blood VENOUS BLOOD / Unknown Venipuncture / Unknown 02/28/2022 11:36 EDT 02/28/2022 12:17 EDT us Harsh Malloy SANDWICH MACHINE OPERATOR CHEMISTRY & BLOOD GAS ORDER GABY Final Result Performing Organization Address [facility] de Phone Number [facility] [address] [place] [address] * HEPATITIS B SURFACE ANTIBODY (02/28/2022 11:36 EDT) Hep B Surface Ab, Quantitative <3.1 See Note mIU/mL 03/01/2022 8:42 EDT [facility] Comment: Reference Range for Hep B Surface Ab, Quant: Positive: >= 10.0 mIU/mL Negative: ??< 10.0 mIU/mL Patient is presumed to not be immune to infection with Hepatitis B Virus. Hep B Surface Ab, Qualitative Negative See Note 03/01/2022 8:42 EDT [facility] Comment: Reference Range for Hep B Surface Ab, Qual: Unvaccinated: ??Negative Vaccinated: ??Positive Blood VENOUS BLOOD / Unknown Venipuncture / Unknown 02/28/2022 11:36 EDT 02/28/2022 12:17 EDT us Harsh Malloy SANDWICH MACHINE OPERATOR CHEMISTRY & BLOOD GAS ORDER GABY Final Result Performing Organization Address City/[facility] Co de Phone Number [facility] [address] [place] [address] * HEPATITIS B CORE ANTIBODY (TOTAL) (02/28/2022 11:36 EDT) [facility] Hepatitis B Core Ab, Total Negative Negative 02/28/2022 16:08 EDT [facility] Blood VENOUS BLOOD / Unknown Venipuncture / Unknown 02/28/2022 11:36 EDT 02/28/2022 12:17 EDT Harsh Malloy NP CHEMISTRY & BLOOD GAS ORDER GABY Final Result Performing Organization Address City/[facility] Co de Phone Number [facility] [address] [place] [address] * QUANTIFERON INTERPRETATION (PERFORMABLE) (02/28/2022 11:35 EDT) [facility] Quantiferon Interpretation Negative Negative 03/01/2022 13:27 EDT [facility] Comment:No interferon-gamma response to M. tuberculosis antigens was detected. ??Infection with M. tuberculosis is unlikely. A single negative result does not exclude infection with M. tuberculosis. ??In patients at high risk for M. tuberculosis infection, a second test should be considered. TB1 Ag minus Nil 0.00 IU/ml 03/01/20 13:27 EDT [facility] TB2 Ag minus Nil 0.00 IU/mL 03/01/20 13:27 EDT [facility] Blood VENOUS BLOOD / Unknown Venipuncture / Unknown 02/28/2022 11:35 EDT 03/01/2022 13:16 EDT Narrative [facility] - 03/01/2022 13:27 EDT Results were obtained with the [employer] QuantiFERON-TB Gold Plus CLIA. New platform in use 01/03/2021 us Harsh Malloy NP IMMUNOLOGY AND SEROLOGY ORD ERABLES Final Result Performing Organization Address City/[facility]/ZIP Co de Phone Number [facility] [address] [place] [address] * QUANTIFERON MITOGEN (PERFORMABLE) (02/28/2022 11:35 EDT) Blood VENOUS BLOOD / Unknown Venipuncture / Unknown 02/28/2022 11:35 EDT 02/28/2022 11:51 EDT us Harsh Malloy NP IMMUNOLOGY AND SEROLOGY ORD ERABLES Final Result Performing Organization Address [facility] Co de Phone Number [facility] [address] [place] [address] * QUANTIFERON TB2 (PERFORMABLE) (02/28/2022 11:35 EDT) Blood VENOUS BLOOD / Unknown Venipuncture / Unknown 02/28/2022 11:35 EDT 02/28/2022 11:51 EDT us Harsh Malloy NP IMMUNOLOGY AND SEROLOGY ORD ERABLES Final Result Performing Organization Address [facility] Co de Phone Number [facility] [address] [place] [address] * QUANTIFERON TB1 (PERFORMABLE) (02/28/2022 11:35 EDT) Blood VENOUS BLOOD / Unknown Venipuncture / Unknown 02/28/2022 11:35 EDT 02/28/2022 11:51 EDT us Harsh Malloy NP IMMUNOLOGY AND SEROLOGY ORD ERABLES Final Result Performing Organization Address [facility] Co de Phone Number [facility] [address] [place] [address] * QUANTIFERON NIL (PERFORMABLE) (02/28/2022 11:35 EDT) Blood VENOUS BLOOD / Unknown Venipuncture / Unknown 02/28/2022 11:35 EDT 03/01/2022 11:35 EDT us Harsh Malloy NP IMMUNOLOGY AND SEROLOGY ORD ERABLES Final Result Performing Organization Address [facility] Co de Phone Number [facility] [address] [place] [address] documented in this encounter Visit Diagnoses Diagnosis [...] 02/28/2022 documented in this encounter Care Teams Metal Furniture Assembly Supervisor Relationship Specialty Start Date End Date Kayleigh Mallory FNP [address] [place] [address] [place] [phone] PCP - General 02/04/19 documented as of this encounter
--- OUTSIDE RECORDS SUMMARY | 2024-03-22 16:13 | XMS_ITS | Encounter Summary ---
Author Organization [facility] Address [address] [place] [address] Care Team Providers Care Compound Filler Name Role Phone Kayleigh Mallory WILFREDO Primary Care Provider [phone] Encounter Details Date Type Department Care Team (Late st Contact Info) Description 03/23/2021 Specialty Pharmacy [facility] Ambulatory Pharmacy - [facility] [address] [place] [address] Eric Redmond RPH Social History Tobacco Use [...] on filedocumented in this encounter Care Teams Compound Filler Relationship Specialty Start Date End Date Kayleigh Mallory FNP [address] [place] [address] [address] [place] [address] PCP - General 02/04/19 documented as of this encounter
--- OUTSIDE RECORDS SUMMARY | 2024-03-22 16:13 | XMS_ITS | Encounter Summary ---
Author Organization [facility] Address [address] [place] [address] Care Team Providers Care Home Appliance Installer Name Role Phone Kayleigh Mallory WILFREDO Primary Care Provider [phone] Encounter Details Date Type Department Care Team (Late st Contact Info) Description 01/24/2021 Specialty Pharmacy [facility] Ambulatory Pharmacy - [facility] [address] [place] [address] Eric Redmond RPH Social History Tobacco Use [...] on filedocumented in this encounter Care Teams Home Appliance Installer Relationship Specialty Start Date End Date Kayleigh Mallory FNP [address] [place] [address] [address] [place] [address] PCP - General 02/04/19 documented as of this encounter
--- OUTSIDE RECORDS SUMMARY | 2024-03-22 16:13 | XMS_ITS | Encounter Summary ---
Author Organization [facility] Address [address] [place] [address] Care Team Providers Care Historic Interpreter Name Role Phone Kayleigh Mallory WILFREDO Primary Care Provider [phone] Reason for Visit * Reason Onset Date Comments Prior Auth, Medication 11/15/2020 Humira Pe n 40mg/0.4mL (Q 14 days) Encounter Details Date Type Department Care Team (Late st Contact Info) Description 11/15/2020 Telephone [facility] Rheumatology & Immunology - [facility] [address] [place] [address] Harsh Malloy, FOOD STAND MANAGER [address] [facility], [address] [place] [address] Prior Auth, Medication (Humira Pen [...] 40mg/0.4mL Approved: 11/15/2020 to 11/15/2021 Authorization Number: [id number] Benefits Information: [employer] Required Pharmacy: [facility] Preferred Pharmacy: [facility] Prior Authorization Submission Process Medication: Humira 40mg/0.4mL Insurance: [employer] Date PA Request Received: 11/15/2020 PA Submission Date: 11/15/2020 CMM Trammell: [id number] Submitted by: Abigail Phone: [phone] * Telephone Encounter - Iram Gates - 11/15/2020 1536 EDT [facility] Request for PA/Funding Drug Name: Humira Next Injection Date: now Insurance Rejection Reason: PA Funding Needed: No documented in this encounter Plan of Treatment Not on file documented as of this encounter Visit Diagnoses Not on filedocumented in this encounter Care Teams Historic Interpreter Relationship Specialty Start Date End Date Kayleigh Mallory FNP [address] [place] [phone] PCP - General 02/04/19 documented as of this encounter
--- OUTSIDE RECORDS SUMMARY | 2024-03-22 16:13 | XMS_ITS | Encounter Summary ---
Author Organization [facility] Address [address] [place] [address] Care Team Providers Care Cylinder Die Machine Operator Name Role Phone Kayleigh Mallory WILFREDO Primary Care Provider [phone] Reason for Visit * Reason Comments Medications Refill Encounter Details Date Type Department Care Team (Late st Contact Info) Description 08/22/2022 Refill [facility] Rheumatology & Immunology - [facility] [address] [place], [place] [address] Harsh Malloy, CHIEF SUBSTATION OPERATOR [address] [facility], [address] [place] [address] Medications Refill Social History Tobacco [...] EVERY 3 MONTHS 120 Tablet 1 08/22/2022 3 documented in this encounter Plan of Treatment Not on file documented as of this encounter Visit Diagnoses Not on filedocumented in this encounter Discontinued Medications Medication Sig Discontinue Reason Start Date End Da te methotrexate 2.5 mg tablet Take 10 Tablets by mouth once a week. Labs are needed every 3 months 06/20/2022 08/22/2022 documented as of this encounter Care Teams Cylinder Die Machine Operator Relationship Specialty Start Date End Date Kayleigh Mallory FNP [address] [place] [address] [address] [place] [phone] PCP - General 02/04/19 documented as of this encounter
--- OUTSIDE RECORDS SUMMARY | 2024-03-22 16:13 | XMS_ITS | Encounter Summary ---
Author Organization [facility] Address [address] [place] [address] Care Team Providers Care Technical Coordinator Name Role Phone Kayleigh Mallory WILFREDO Primary Care Provider [phone] Reason for Visit * Reason Onset Date Comments Medications Refill 12/11/2020 Encounter Details Date Type Department Care Team (Late st Contact Info) Description 12/11/2020 Refill [facility] Rheumatology & Immunology - [facility] [address] [place] [address] Harsh Malloy, BASS VIOL REPAIRER [address] [facility], [address] [place] [address] Medications Refill Social History Tobacco [...] please get labs JOSIAH 120 Tablet 12/14/2020 documented in this encounter Miscellaneous Notes * Telephone Encounter - Talisha Loja RN - 12/14/2020 1031 EDTFrom: Nina Boothe To: Office of Harsh Malloy APRN Sent: 12/11/2020 16:46 EDT Subject: Medication Renewal Request Refills have been requested for the following medications: methotrexate 2.5 mg tablet [Harsh Malloy APRN] [id number] [address] [facility] documented in this encounter Plan of Treatment Not on file documented as of this encounter Visit Diagnoses Not on filedocumented in this encounter Discontinued Medications Medication Sig Discontinue Reason Start Date End Da te methotrexate 2.5 mg tablet TAKE 10 TABLETS BY MOUTH ONCE A WEEK Reorder 06/19/2020 12/11/2020 documented as of this encounter Care Teams Technical Coordinator Relationship Specialty Start Date End Date Kayleigh Mallory FNP [address] [place] [address] [address] [place] [address] PCP - General 02/04/19 documented as of this encounter
--- OUTSIDE RECORDS SUMMARY | 2024-03-22 16:13 | XMS_ITS | Encounter Summary ---
Author Organization [facility] Address [address] [place] [address] Care Team Providers Care Planning Specialist Name Role Phone Kayleigh Mallory WILFREDO Primary Care Provider [phone] Reason for Visit * Reason Comments Other Encounter Details Date Type Department Care Team (Late st Contact Info) Description 08/18/2021 [facility] Rheumatology & Immunology - [facility] [address] [place], [place] [id number] Harsh Malloy, ELBERT 111 [facility], [address] [place] [address] Other Social History Tobacco Use [...] MOUTH ONCE A WEEK 120 Tablet 08/20/2021 2 documented in this encounter Plan of Treatment Not on file documented as of this encounter Visit Diagnoses Not on filedocumented in this encounter Discontinued Medications Medication Sig Discontinue Reason Start Date End Da te methotrexate 2.5 mg tablet TAKE 10 TABLETS BY MOUTH ONCE A WEEK 03/01/2021 08/20/2021 documented as of this encounter Care Teams Planning Specialist Relationship Specialty Start Date End Date Kayleigh Mallory FNP 26 [facility] [address] [place] [phone] PCP - General 02/04/19 documented as of this encounter
--- OUTSIDE RECORDS SUMMARY | 2024-03-22 16:13 | XMS_ITS | Encounter Summary ---
Author Organization [facility] Address [address] [place] [address] Care Team Providers Care Superintendent Colliery Name Role Phone Kayleigh Mallory WILFREDO Primary Care Provider [phone] Encounter Details Date Type Department Care Team (Late st Contact Info) Description 05/08/2021 Orders Only [facility] Rheumatology & Immunology - [address] [address] China Penn RN Psoriatic arthritis (HCC-CMS) (HCC) [...] in this encounter Progress Notes * China Penn, RN - 05/08/2021 1140 EST Pt [facility] to do orders but they had . New orders faxed to [phone]. documented in this encounter Plan of Treatment Not on file documented as of this encounter Visit Diagnoses Diagnosis Psoriatic arthritis ([facility])- Primary Psoriatic arthropathy Long-term use of high-risk medication documented in this encounter Care Teams Superintendent Colliery Relationship Specialty Start Date End Date Kayleigh Mallory FNP [address] [place] [address] [address] [place] [phone] PCP - General 02/04/19 documented as of this encounter
--- OUTSIDE RECORDS SUMMARY | 2024-03-22 16:13 | XMS_ITS | Encounter Summary ---
Author Organization [facility] Address [address] [place] [address] Care Team Providers Care Medical Surgery Nurse Name Role Phone Kayleigh Mallory WILFREDO Primary Care Provider [phone] Encounter Details Date Type Department Care Team (Late st Contact Info) Description 12/19/2020 Orders Only [facility] Rheumatology & Immunology - [facility] [address] [place], [place] [id number] Harsh Malloy, ELBERT 111 [facility], [address] [place] [address] Social History Tobacco Use Types [...] DIFFERENTIAL (12/19/2020 7:09 EDT) WBC, External 5.38 [facility] RBC, External 4.13 [facility] Hemoglobin, External 12.0 [facility] HCT, External 37.7 [facility] MCV, External 91.3 [facility] MCH, External 29.1 [facility] MCHC, External 31.8(A) 32.0 - 36.0 % [facility] Comment:Low PLT, External 311 [facility] RDW-CV, External 14.0 [facility] Neutrophils, External 62.4 [facility] Lymphocytes, External 23.4 [facility] Monocytes, External 10.6 [facility] Eosinophils, External 2.8 [facility] Basophils, External 0.6 [facility] ABS Neutrophils, External 3.36 [facility] ABS Lymphs, External 1.36 [facility] ABS Monocytes, External 0.57 [facility] ABS Eosinophils, External 0.15 [facility] ABS Basophils, External 0.03 [facility] Blood VENOUS BLOOD / Unknown 12/19/2020 7:09 EDT us Harsh Malloy CRNP PACKAGES & DNA PROBE ORDERA BLES Final Result Performing Organization Address City/[facility]/ZIP Co de Phone Number [facility] * (ABNORMAL) COMPREHENSIVE METABOLIC PANEL (CMP) (12/19/2020 7:09 EDT) GFR, Calculated, External 52.16 [facility] Glucose, Serum, External 96 [facility] Albumin, External 3.9 [facility] Total Alkaline Phosphatase, External 65 [facility] ALT, External 18 [facility] AST, External 17 [facility] BUN, External 9 [facility] Calculated Calcium, External [facility] Calcium, External 8.9 [facility] Chloride, External 103 [facility] CO2, External 29.7 [facility] Creatinine, External 1.1(A) 0.55 - 1.02 mg/dL [facility] Comment:High Fasting?, External [facility] Potassium, External 4.8 [facility] Sodium, External 140 [facility] Total Protein, External 7.0 [facility] Bilirubin, Total, External 0.6 [facility] Blood VENOUS BLOOD / Unknown 12/19/2020 7:09 EDT us Harsh Malloy CRNP CHEMISTRY & BLOOD GAS ORDER GABY Final Result Performing Organization Address [facility]/ZIP Co de Phone Number [facility] documented in this encounter Visit Diagnoses Not on filedocumented in this encounter Care Teams Medical Surgery Nurse Relationship Specialty Start Date End Date Kayleigh Mallory FNP [address] [place] [address] [address] [place] [address] PCP - General 02/04/19 documented as of this encounter
--- OUTSIDE RECORDS SUMMARY | 2024-03-22 16:13 | XMS_ITS | Encounter Summary ---
Author Organization [facility] Address [address] [place] [address] Care Team Providers Care Customer Operations Associate Name Role Phone Kayleigh Mallory WILFREDO Primary Care Provider [phone] Reason for Visit * Reason Onset Date Comments COVID-19 05/21/2021 Encounter Details Date Type Department Care Team (Late st Contact Info) Description 05/21/2021 Telephone [facility] Rheumatology & Immunology - [facility] [address] [place], [place] [phone] Harsh Malloy, AVIATION MECHANIC 111 [facility], [facility] [address] [place] [address] COVID-19 Social History Tobacco Use [...] - 05/21/2021 1247 EST Patient reported to [facility], today 05/21/21, that she contracted Covid and held 1 dose of Humira. Left voicemail for Iris, requesting call back at specialty pharmacy line. Calling to obtain more information regarding Covid positivity. Damaris Torrez, PharmD Ambulatory Pharmacist - Specialty Pharmacy [phone] 05/21/2021 Adden//: 2nd phonecall attempt, had to leave voicemail. 05/21/21 documented in this encounter Plan of Treatment Not on file documented as of this encounter Visit Diagnoses Not on filedocumented in this encounter Care Teams Customer Operations Associate Relationship Specialty Start Date End Date Kayleigh Mallory FNP [address] [phone] PCP - General 02/04/19 documented as of this encounter
--- OUTSIDE RECORDS SUMMARY | 2024-03-22 16:13 | XMS_ITS | Encounter Summary ---
Author Organization [facility] Address [address] [place] [address] Care Team Providers Care Mounter Automatic Name Role Phone Kayleigh Mallory WILFREDO Primary Care Provider [phone] Encounter Details Date Type Department Care Team (Late st Contact Info) Description 07/02/2022 Specialty Pharmacy [facility] - [facility] [address] [place], [place] [phone] Damaris Simmons RPH Social History Tobacco Use [...] on filedocumented in this encounter Care Teams Mounter Automatic Relationship Specialty Start Date End Date Kayleigh Mallory FNP [address] [place] [address] [address] [place] [address] PCP - General 02/04/19 documented as of this encounter
--- OUTSIDE RECORDS SUMMARY | 2024-03-22 16:13 | XMS_ITS | Encounter Summary ---
Author Organization [facility] Address [address] [place] [address] Care Team Providers Care Graphic Design Assistant Name Role Phone Kayleigh Mallory WILFREDO Primary Care Provider [phone] Reason for Visit * Reason Onset Date Comments COVID-19 03/11/2022 Encounter Details Date Type Department Care Team (Late st Contact Info) Description 03/11/2022 Telephone [facility] Rheumatology & Immunology - [facility] [address] [place], [place] [phone] Harsh Malloy, DAY HAUL YOUTH SUPERVISOR 111 [facility], [facility] 5 [place] [address] COVID-19 Social History Tobacco Use [...] couple more days and then has a [facility] PCP who will retest her. She agreed [...] Paxlovid, she would like to get at [facility], I advised pt to hold her [...] on filedocumented in this encounter Care Teams Graphic Design Assistant Relationship Specialty Start Date End Date Kayleigh Mallory FNP [address] [place] [address] [address] [place] [phone] PCP - General 02/04/19 documented as of this encounter
--- OUTSIDE RECORDS SUMMARY | 2024-03-22 16:13 | XMS_ITS | Encounter Summary ---
Author Organization [facility] Address [address] [place] [address] Care Team Providers Care Child'S Nurse Name Role Phone Kayleigh Mallory WILFREDO Primary Care Provider Encounter Details Date Type Department Care Team (Late st Contact Info) Description 03/08/2022 Specialty Pharmacy [facility] Ambulatory Pharmacy - [facility] [address] [place], [place] [address] Damaris Simmons RPH Social History Tobacco Use [...] documented in this encounter Progress Notes * TawandataniaNicolasa - 03/08/[address] [facility] Specialty Pharm[facility] Delivery Information Hours: Friday-Friday 8:30am - 5:00pm *Pharmacist available electrician front 18/11 Delivery Service: FedEx Delivery Window: None Specified Date of Delivery: 03/19/22 Tracking # : [id number] documented in this encounter Plan of Treatment Not on file documented as of this encounter Visit Diagnoses Not on filedocumented in this encounter Care Teams Child'S Nurse Relationship Specialty Start Date End Date Kayleigh Mallory FNP [address] [place] [phone] PCP - General 02/04/19 documented as of this encounter
--- OUTSIDE RECORDS SUMMARY | 2024-03-22 16:13 | XMS_ITS | Encounter Summary ---
Author Organization [facility] Address [address] [place] [address] Care Team Providers Care Irrigation Flume Layer Name Role Phone Kayleigh Mallory WILFREDO Primary Care Provider [phone] Reason for Visit * Reason Onset Date Comments Prior Auth, Medication 03/01/2022 Humira CF 40mg/0.4ml, inject every 14 days Encounter Details Date Type Department Care Team (Late st Contact Info) Description 03/01/2022 Telephone [facility] Rheumatology & Immunology - [address] [address] Harsh Malloy, DESIGN PAINTER 111 [facility], [address] [place] [address] Prior Auth, Medication (Humira CF [...] Type: Commercial Approval Dates: 03/01/2022 Authorization Number: [id number] Benefits Information: [facility] able to fill? : Yes Required Pharmacy: [facility] Additional Info/Other Notes: Prior Authorization Submission Process - Routine Medication: Humira CF 40mg/0.4ml, inject every 14 days Insurance: [employer] Insurance Type: Commercial Date PA Request Received: 03/01/2022 PA Submission Date: 03/01/2022 CM Trammell: [id number] Notes none Submitted by: susan Phone: [phone] documented in this encounter Plan of Treatment Not on file documented as of this encounter Visit Diagnoses Not on filedocumented in this encounter Care Teams Irrigation Flume Layer Relationship Specialty Start Date End Date Kayleigh Mallory FNP 26 [facility] [address] [place] [address] PCP - General 02/04/19 documented as of this encounter
--- OUTSIDE RECORDS SUMMARY | 2024-03-22 16:13 | XMS_ITS | Encounter Summary ---
Author Organization [facility] Address [address] [place] [address] Care Team Providers Care Hydraulic Miner Blasting Name Role Phone Kayleigh Mallory WILFREDO Primary Care Provider [phone] Reason for Visit * Reason Onset Date Comments Prior Auth, Medication 12/06/2021 Humira (r e-auth) Encounter Details Date Type Department Care Team (Late st Contact Info) Description 12/06/2021 Telephone [facility] Rheumatology & Immunology - [facility] [address] [place] [address] Harsh Malloy, HOLLOW HANDLE BENCH WORKER 111 [facility], [address] [place] [address] Prior Auth, Medication (Humira (re-auth)) Social History [...] Approval Dates: 12/06/2021 to 12/06/2022 Authorization Number: [id number] Benefits Information: [facility] able to fill? : Yes Required Pharmacy: N/A Additional Info/Other Notes: Prior Authorization Submission Process - Routine Medication: Humira CF 40mg/0.4ml, inject every 14 days Insurance: [employer] Insurance Type: Commercial Date PA Request Received: 12/06/2021 PA Submission Date: 12/06/2021 CMM Trammell: [id number] Notes: Submitted by: Silke Phone: [phone] * Telephone Encounter - Kamala Hull - 12/06/2021 1359 EDT [facility] Request for PA/Funding Drug Name: Humira Next Injection Date: Unknown--call out to PT RX Insurance: [facility] Qty Remaining: Unknown PA Required: Yes Funding Needed: No documented in this encounter Plan of Treatment Not on file documented as of this encounter Visit Diagnoses Diagnosis Psoriasis with arthropathy ([facility])- Primary Psoriatic arthropathy documented in this encounter Care Teams Hydraulic Miner Blasting Relationship Specialty Start Date End Date Kayleigh Mallory FNP [address] [place] [address] [place] [phone] PCP - General 02/04/19 documented as of this encounter
--- OUTSIDE RECORDS SUMMARY | 2024-03-22 16:13 | XMS_ITS | Encounter Summary ---
Author Organization [facility] Address [address] [place] [address] Care Team Providers Care Exchange Clerk Name Role Phone Kayleigh Mallory WILFREDO Primary Care Provider [phone] Reason for Visit * Reason Onset Date Comments Medications Refill 06/12/2022 Encounter Details Date Type Department Care Team (Late st Contact Info) Description 06/12/2022 Refill [facility] Rheumatology & Immunology - [address] [id number] China Penn RN Medications Refill Social History [...] Date folic acid (FOLVITE) 1 mg tablet Take 1 Tablet by mouth daily. 90 Tablet 3 06/14/2022 09/09/2022 documented in this encounter Miscellaneous Notes * Telephone Encounter - China Penn RN - 06/12/2022 1012 EST Left message for pt to call back. Some confusion as to where she wants her methotrexate and folic acid refilled. Overdue for labs. Another nurse recently sent over a month's worth of MTX to [facility] in [place] where she has filled before. [facility] [...] documented as of this encounter Care Teams Exchange Clerk Relationship Specialty Start Date End Date Kayleigh Mallory FNP [address] [place] [address] [place] [phone] PCP - General 02/04/19 documented as of this encounter
--- OUTSIDE RECORDS SUMMARY | 2024-03-22 16:13 | XMS_ITS | Encounter Summary ---
Author Organization [facility] Address [address] [place] [address] Care Team Providers Care Account Receivable Clerk Name Role Phone Kayleigh Mallory WILFREDO Primary Care Provider [phone] Reason for Visit * Reason Comments Medications Refill Encounter Details Date Type Department Care Team (Late st Contact Info) Description 09/07/2022 Refill [facility] Rheumatology & Immunology - [facility] [address] [place], [place] [address] Harsh Malloy, FIRE EXTINGUISHER SPRINKLER INSPECTOR 111 [facility], [address] [place] [address] Medications Refill Social History Tobacco [...] documented as of this encounter Care Teams Account Receivable Clerk Relationship Specialty Start Date End Date Kayleigh Mallory FNP 26 [facility] [address] [place] [phone] PCP - General 02/04/19 documented as of this encounter
--- OUTSIDE RECORDS SUMMARY | 2024-03-22 16:13 | XMS_ITS | Encounter Summary ---
Author Organization [facility] Address [address] [place] [address] Care Team Providers Care Aluminum Siding Installer Name Role Phone Kayleigh Mallory WILFREDO Primary Care Provider [phone] Encounter Details Date Type Department Care Team (Late st Contact Info) Description 07/22/2022 Specialty Pharmacy [facility] Ambulatory Pharmacy - [facility] [address] [place], [place] [address] Damaris Simmons RPH Social History Tobacco Use [...] documented in this encounter Progress Notes * Gurpreet Espitia - 07/22/2022 1350 EDT Specialty Pharmacy Documentation Medication: Humira Clinic: [facility] Reason for Encounter: Refill Notes: RTS until 07/25 Follow up date: 07/25 Follow up reason: Refill documented in this encounter Plan of Treatment Not on file documented as of this encounter Visit Diagnoses Not on filedocumented in this encounter Care Teams Aluminum Siding Installer Relationship Specialty Start Date End Date Kayleigh Mallory FNP 26 [facility] [address] [place] [phone] PCP - General 02/04/19 documented as of this encounter
--- OUTSIDE RECORDS SUMMARY | 2024-03-22 16:13 | XMS_ITS | Encounter Summary ---
Author Organization [facility] Address [address] [place] [address] Care Team Providers Care Graining Press Operator Name Role Phone Kayleigh Mallory WILFREDO Primary Care Provider [phone] Encounter Details Date Type Department Care Team (Late st Contact Info) Description 08/15/2021 Specialty Pharmacy [facility] [address] [place] [address] Damaris Simmons RPH Social History Tobacco Use [...] on filedocumented in this encounter Care Teams Graining Press Operator Relationship Specialty Start Date End Date Kayleigh Mallory FNP [address] [place] [address] [address] [place] [address] PCP - General 02/04/19 documented as of this encounter
--- OUTSIDE RECORDS SUMMARY | 2024-03-22 16:13 | XMS_ITS | Encounter Summary ---
Author Organization [facility] Address [address] [place] [address] Care Team Providers Care Storage Administrator Name Role Phone Kayleigh Mallory WILFREDO Primary Care Provider [phone] Encounter Details Date Type Department Care Team (Late st Contact Info) Description 02/26/2022 Telephone [facility] Rheumatology & Immunology - [facility] [address] [place], [place] [phone] Harsh Malloy, ELBERT 111 [facility], [address] [place] [address] Social History Tobacco Use Types [...] on filedocumented in this encounter Care Teams Storage Administrator Relationship Specialty Start Date End Date Kayleigh Mallory FNP [address] [place] [phone] PCP - General 02/04/19 documented as of this encounter
--- OUTSIDE RECORDS SUMMARY | 2024-03-22 16:13 | XMS_ITS | Encounter Summary ---
Author Organization [facility] Address [address] [place] [address] Care Team Providers Care Bracelet Maker Novelty Name Role Phone Kayleigh Mallory WILFREDO Primary Care Provider [phone] Encounter Details Date Type Department Care Team (Late st Contact Info) Description 08/19/2022 Specialty Pharmacy [facility] Ambulatory Pharmacy - [facility] [address] [place], [place] [address] Damaris Simmons RPH Social History Tobacco Use [...] on filedocumented in this encounter Care Teams Bracelet Maker Novelty Relationship Specialty Start Date End Date Kayleigh Mallory FNP [address] [place] [address] [address] [place] [phone] PCP - General 02/04/19 documented as of this encounter
--- OUTSIDE RECORDS SUMMARY | 2024-03-22 16:13 | XMS_ITS | Encounter Summary ---
Author Organization [facility] Address [address] [place] [address] Care Team Providers Care Neck Cutter Name Role Phone Kayleigh Mallory WILFREDO Primary Care Provider Encounter Details Date Type Department Care Team (Late st Contact Info) Description 12/06/2021 Specialty Pharmacy [facility] Ambulatory Pharmacy - [facility] [address] [place] [address] Damaris Simmons RPH Social History Tobacco Use [...] documented in this encounter Progress Notes * Kamala Hull - 12/06/2021 1354 EDT Specialty Pharmacy Non-Outreach Documentation Medication: Humira Clinic: [facility] Reason for Encounter: Outreach Notes: PA required Follow up date: 12/07/21 or daily Follow up reason: Outreach * Lois Li - 12/06/2021 1354 EDT [facility] Specialty Pharmacy Delivery Information Hours: Friday-Friday 8:30am - 5:00pm *Pharmacist available oracle applications analyst 18/11 Delivery Service: FedEx Delivery Window: None Specified Date of Delivery: 12/12/21 Tracking # : [id number] documented in this encounter Plan of Treatment Not on file documented as of this encounter Visit Diagnoses Not on filedocumented in this encounter Care Teams Neck Cutter Relationship Specialty Start Date End Date Kayleigh Mallory FNP 26 [facility] [address] [place] [phone] PCP - General 02/04/19 documented as of this encounter
--- OUTSIDE RECORDS SUMMARY | 2024-03-22 16:13 | XMS_ITS | Encounter Summary ---
Author Organization [facility] Address [address] [place] [address] Care Team Providers Care Care Management Specialist Name Role Phone Kayleigh Mallory WILFREDO Primary Care Provider [phone] Reason for Visit * Reason Comments Joint Pain pt has nothing new t o report Follow-up 6 months Encounter Details Date Type Department Care Team (Late st Contact Info) Description 08/28/2021 10:00 EDT Office Visit [facility] Rheumatology & Immunology - [facility] [address] [place], [place] [id number] Harsh Malloy, FOOD SERVICE ASSISTANT 111 [facility], [address] 5 [place] [address] Psoriatic arthritis (HCC-CMS) (HCC) (HCC-CMS) [...] after #4 3. Will [facility], recommend this 3 months after your last covid vaccine 4. F/u 6 months in person documented in this encounter Ordered Prescriptions Prescription Sig Dispense Quantity Refills Last Filled Start Date End Date methotrexate 2.5 mg tablet Take 10 Tablets by mouth once a week. 120 Tablet 08/28/2021 2 folic acid (FOLVITE) 1 mg tablet Take 1 Tablet by mouth daily. 90 Tablet 3 08/28/2021 3 adalimumab (HUMIRA,CF, PEN) 40 mg/0.4 mL pen Inject 0.4 mL into the skin every 14 days. Specialty. 6 Kit 1 08/28/2021 2 documented in this encounter Progress Notes [...] X Hand/Foot color change in cold X BeVocal #1, -4 Holding MTX and humira post covid vaccine Had 2020 flu 01/18/21 Trying to loose wt eating better, working out at home and walking at lunch States toes have been swelling Patient Active Problem List Diagnosis ??? Psoriasis with arthropathy (HCC-CMS) ([facility]) ??? Encounter for long-term (current) use of medications ??? Hypertensive disorder ??? Environmental allergies ??? Psoriasis ??? Psoriasis with arthropathy (HCC-CMS) (HCC) ??? History of COVID-19 Past Medical [...] 4 months after #4 Pt placed in [employer] lottery, reviewed EAU, Recommend 3 months after her 4th covid dose if possible Reviewed possible SE, injection site reaction, pain at injection site, bruising, OSEGUERA,fatigue, cough Encounter Diagnoses Name Primary? Psoriatic arthritis ([facility]) (HCC) Yes ??? Long-term use of high-risk medication ??? Encounter for long-term (current) use of medications PLAN: 1. Continue current meds. 2. Labs every 3-4 months Per CDC guidelines recommend covid #4, 3 months after #3 Hold humira and methotrexate 1-2 weeks , after each vaccine, then restart. Optional 5th covid vaccine per CDC, 4 months after #4 3. Will submit you for [employer]tery, recommend this 3 months after your last covid vaccine 4. F/u 6 months in person 1. Psoriatic arthritis ([facility]) ([facility]) 2. Long-term use of [...] this encounter Visit Diagnoses Diagnosis Psoriatic arthritis ([facility])- Primary Psoriatic arthropathy Long-term use of [...] documented as of this encounter Care Teams Care Management Specialist Relationship Specialty Start Date End Date Kayleigh Mallory FNP [address] [phone] PCP - General 02/04/19 documented as of this encounter
--- OUTSIDE RECORDS SUMMARY | 2024-03-22 16:14 | XMS_ITS | Encounter Summary ---
Author Organization [facility] Address [address] [place] [address] Care Team Providers Care Employment Consultant Name Role Phone Kayleigh Mallory WILFREDO Primary Care Provider Encounter Details Date Type Department Care Team (Late st Contact Info) Description 04/05/[address] [facility] - [facility] [address] [place] [address] Eric Redmond RPH Social History Tobacco Use Types Packs/Day Years Used Date Smoking Tobacco: Never Smokeless Tobacco: Never Alcohol Use Standard Drinks/Week Comments Yes 0 (1 standard drink = 0.6 oz pur e alcohol) About 2 beers a month if that Comments No Sex and Gender Information Value [...] on filedocumented in this encounter Care Teams Employment Consultant Relationship Specialty Start Date End Date Kayleigh Mallory FNP 26 [facility] [address] [place] [phone] PCP - General 02/04/19 documented as of this encounter
--- OUTSIDE RECORDS SUMMARY | 2024-03-22 16:14 | XMS_ITS | Encounter Summary ---
Author Organization [facility] Address [address] [place] [address] Care Team Providers Care Salon Manager Name Role Phone Unknown, Provider Primary Care Provider Unava ilable Reason for Visit * Reason Onset Date Comments Medications Refill 11/12/2018 Encounter Details Date Type Department Care Team (Late st Contact Info) Description 11/12/[address] [facility] Rheumatology & Immunology - [address] [phone] Etelvina Hernandez MD [address] [place] [address], [address] [place] [address] Medications Refill Social History Tobacco [...] mg tablet [Etelvina Hernandez MD] Preferred pharmacy: [address] documented in this encounter Plan of Treatment Not on file documented as of this encounter Visit Diagnoses Not on filedocumented in this encounter Discontinued Medications Medication Sig Discontinue Reason Start Date End Da te folic acid (FOLVITE) 1 mg tablet Take 1 Tab by mouth daily. Reorder 02/02/2018 11/12/2018 documented as of this encounter Care Teams Salon Manager Relationship Specialty Start Date End Date Unknown, Provider, PCP - General 08/05/18 02/03/19 documented as of this encounter
--- OUTSIDE RECORDS SUMMARY | 2024-03-22 16:14 | XMS_ITS | Encounter Summary ---
Author Organization [facility] Address [address] [place] [address] Care Team Providers Care Body Joiner Name Role Phone Unknown, Provider Primary Care Provider Unava ilable Encounter Details Date Type Department Care Team (Late st Contact Info) Description 01/26/2019 Specialty Pharmacy [facility] Ambulatory Pharmacy - [facility] [address] [place], [place] [address] Eric Redmond [place] Social History Tobacco Use [...] on filedocumented in this encounter Care Teams Body Joiner Relationship Specialty Start Date End Date Unknown, Provider, PCP - General 08/05/18 02/03/19 documented as of this encounter
--- OUTSIDE RECORDS SUMMARY | 2024-03-22 16:14 | XMS_ITS | Encounter Summary ---
Author Organization [facility] Address [address] [place] [address] Care Team Providers Care Shuffle Board Operator Name Role Phone Kayleigh Mallory WILFREDO Primary Care Provider [phone] Reason for Visit * Reason Onset Date Comments Medications Refill 11/09/2019 Encounter Details Date Type Department Care Team (Late st Contact Info) Description 11/09/2019 Telephone [facility] Rheumatology & Immunology - [facility] [address] [place], [place] [phone] Harsh Malloy, ASPHALT MIXER 111 [facility] 5 [place] [address] Medications Refill Social History Tobacco [...] Medication: Humira Refill due: November outreach Pharmacy: [facility] Renewal of Humira (adalimumab) is required for continued use; order sent per refill protocol to [facility] for dispensing. Follow-up visit scheduled with Harsh Malloy NP on 02/08/2020. Eirc Redmond, Pharm.D., [facility] Pharmacist Clinician - Rheumatology 11/18/2019 documented in [...] documented as of this encounter Care Teams Shuffle Board Operator Relationship Specialty Start Date End Date Kayleigh Mallory FNP 26 [facility] [address] [place] [phone] PCP - General 02/04/19 documented as of this encounter
--- OUTSIDE RECORDS SUMMARY | 2024-03-22 16:14 | XMS_ITS | Encounter Summary ---
Author Organization [facility] Address [address] [place] [address] Care Team Providers Care Warehouse Delivery Manager Name Role Phone Kayleigh Mallory WILFREDO Primary Care Provider [phone] Encounter Details Date Type Department Care Team (Late st Contact Info) Description 10/26/2019 Orders Only [facility] Rheumatology & Immunology - [facility] [address] [place] [address] China Penn RN Psoriatic arthritis ([facility]) (Primary Dx); Long-term use of high-risk medication [...] Progress Notes * China Penn, IMAN - 10/26/2019 0574 EDT New standing lab orders faxed to [facility]. documented in this encounter Plan of Treatment Not on file documented as of this encounter Visit Diagnoses Diagnosis Psoriatic arthritis ([facility])- Primary Psoriatic arthropathy Long-term use of high-risk medication documented in this encounter Care Teams Warehouse Delivery Manager Relationship Specialty Start Date End Date Kayleigh Mallory FNP [address] [place] [address] [address] [place] [phone] PCP - General 02/04/19 documented as of this encounter
--- OUTSIDE RECORDS SUMMARY | 2024-03-22 16:14 | XMS_ITS | Encounter Summary ---
Author Organization [facility] Address [address] [place] [address] Care Team Providers Care Mems Process Engineer Name Role Phone Kayleigh Mallory WILFREDO Primary Care Provider [phone] Reason for Referral * Medication Prior Authorization (Routine) - Authorized Specialty Diagnoses / Procedures Referred By Twyla love Referred To Contact Pharmacy Diagnoses Psoriatic arthropathy ([facility]) Harsh Malloy, CAT HOOKER Phone: tel: fax: [facility] [address] [address] Phone: tel: fax: Referral ID Status Reason Start Date Expiration Date Visits Requested Visits Authorized [id number] Authorized Medication Prior Authorization 0 1 1 [...] Encounter Details Date Type Department Care Team ([facility] Contact Info) Description 11/08/2019 Telephone [facility] Rheumatology & Immunology - [address] [phone] Harsh Malloy NP 111 [facility], [address] [place] [address] Prior Auth, Medication (Humira reauth) Social [...] q14d renewal Approved: through 11/08/20 Authorization Number: [id number] Benefits Information or Other Notes: Pharmacy: [facility] Prior Authorization Submission Process Medication: Humira CF pen q14d renewal Insurance: JAMES Date PA Request Received: 11/08/19 PA Submission Date: 11/09/19 Submitted by: Ann Marie Phone: [phone] documented in this encounter Plan of Treatment Scheduled Referrals Name Type Priority Associated Diagnoses Order Schedule AMB MEDICATION PRIOR AUTHORIZATION Outpatient Referral Routine Psoriatic arthropathy ([facility]) Ordered: 11/08/2019 documented as of this encounter Visit Diagnoses Diagnosis Psoriatic arthropathy ([facility])- Primary Psoriatic arthropathy documented in this encounter Care Teams Mems Process Engineer Relationship Specialty Start Date End Date Kayleigh Mallory FNP 26 [facility] [address] [place] [phone] PCP - General 02/04/19 documented as of this encounter
--- OUTSIDE RECORDS SUMMARY | 2024-03-22 16:14 | XMS_ITS | Encounter Summary ---
Author Organization [facility] Address [address] [place] [address] Care Team Providers Care Travel Counselor Automobile Club Name Role Phone Kayleigh Mallory WILFREDO Primary Care Provider [phone] Reason for Visit * Reason Onset Date Comments Medications Refill 03/27/2020 Encounter Details Date Type Department Care Team (Late st Contact Info) Description 03/27/2020 Refill [facility] Rheumatology & Immunology - [address] [phone] Harsh Malloy, ANY COMMODITY SALES DELIVERER 111 [facility], [facility] 5 [place] [address] Medications Refill Social History Tobacco [...] mg tablet [Harsh Malloy APRN] Preferred pharmacy: [id number] AT [facility] documented in this encounter Plan of Treatment Not on file documented as of this encounter Visit Diagnoses Not on filedocumented in this encounter Discontinued Medications Medication Sig Discontinue Reason Start Date End Da te methotrexate 2.5 mg tablet TAKE 10 TABLETS BY MOUTH ONCE A WEEK WITH LABS EVERY 3 TO 4 MONTHS Reorder 03/22/2020 03/27/2020 documented as of this encounter Care Teams Travel Counselor Automobile Club Relationship Specialty Start Date End Date Kayleigh Mallory FNP [address] [place] [address] [address] [place] [phone] PCP - General 02/04/19 documented as of this encounter
--- OUTSIDE RECORDS SUMMARY | 2024-03-22 16:14 | XMS_ITS | Encounter Summary ---
Author Organization [facility] Address [address] [place] [address] Care Team Providers Care Theater Education Teacher Name Role Phone Kayleigh Mallory WILFREDO Primary Care Provider [phone] Reason for Visit * Reason Comments Medication Management doing well Encounter Details Date Type Department Care Team (Late st Contact Info) Description 02/05/2019 11:00 EDT Office Visit [facility] Rheumatology & Immunology - [address] [phone] Harsh Malloy, CHIEF PRIVACY OFFICER 111 [facility], [facility] 5 [place] [address] Psoriatic arthropathy ([facility]) (Primary Dx); Need for influenza vaccination; Encounter [...] Many Vaccine Information Statements are available in Sudanese and other languages. See www.immunize.org/vis Hojas de [...] it yourself through the VAERS website at www.vaers.[facility].gov, or by calling . [employer] does not give medical advice. 6. How can I learn more? Ask your health care provider. He or she can give you the vaccine package insert or suggest other sources of information. ??? Call your local or state health department. ??? Contact the Centers for Disease Control and Prevention ([facility]): - Call (3-720-MZA-INFO) or - Visit [facility]???s website at www.cdc.gov/vaccines Vaccine Information Statement Recombinant [...] needed. Harsh Malloy APRN 02/05/2019 11:06 * China Haro - 02/05/2019 1100 EDT REVIEW OF SYSTEMS: [...] this encounter Visit Diagnoses Diagnosis Psoriatic arthropathy ([facility])- Primary Psoriatic arthropathy Need for influenza vaccination Need for prophylactic vaccination and inoculation against influenza Encounter for long-term (current) use of medications Encounter for long-term (current) use of other medications documented in this encounter Orders Immunization/Injection Count Last Ordered Date First Ordered Date INFLUENZA VACCINE QUAD (FLULAVAL/FLUARIX/FLUZONE) PF 0.5 ML IM (6 MOS+) 1 02/05/2019 documented in this encounter Care Teams Theater Education Teacher Relationship Specialty Start Date End Date Kayleigh Mallory FNP [address] [place] [phone] PCP - General 02/04/19 documented as of this encounter
--- OUTSIDE RECORDS SUMMARY | 2024-03-22 16:14 | XMS_ITS | Encounter Summary ---
Author Organization [facility] Address [address] [place] [address] Care Team Providers Care Tobacco Sprayer Name Role Phone Kayleigh Mallory WILFREDO Primary Care Provider [phone] Encounter Details Date Type Department Care Team (Late st Contact Info) Description 10/18/2020 Specialty Pharmacy [facility] Amb[facility] - [facility] [address] [place] [address] Eric Redmond RPH Social History Tobacco Use [...] on filedocumented in this encounter Care Teams Tobacco Sprayer Relationship Specialty Start Date End Date Kayleigh Mallory FNP [address] [place] [address] [address] [place] [phone] PCP - General 02/04/19 documented as of this encounter
--- OUTSIDE RECORDS SUMMARY | 2024-03-22 16:14 | XMS_ITS | Encounter Summary ---
Author Organization [facility] Address [address] [place] [address] Care Team Providers Care Rail Signal Worker Name Role Phone Kayleigh Mallory WILFREDO Primary Care Provider [phone] Reason for Visit * Reason Comments Other Encounter Details Date Type Department Care Team (Late st Contact Info) Description 06/13/2020 [facility] Rheumatology & Immunology - [facility] [address] [place], [place] [phone] Harsh Malloy, ELBERT 111 [facility], Level [address] [place] [address] Other Social History Tobacco Use [...] ONCE A WEEK 120 Tab 1 06/19/2020 1 documented in this encounter Miscellaneous Notes * Telephone Encounter - China Penn RN - 06/19/2020 1010 EST Received lab results from 04/05/21 from [facility]. Pt isn't due again for another month [...] documented as of this encounter Care Teams Rail Signal Worker Relationship Specialty Start Date End Date Kayleigh Mallory FNP 26 [facility] [address] [place] [phone] PCP - General 02/04/19 documented as of this encounter
--- OUTSIDE RECORDS SUMMARY | 2024-03-22 16:14 | XMS_ITS | Encounter Summary ---
Author Organization [facility] Address [address] [place] [address] Care Team Providers Care Physician [facility] Name Role Phone Kayleigh Mallory WILFREDO Primary Care Provider [phone] Encounter Details Date Type Department Care Team (Late st Contact Info) Description 06/16/2019 Specialty Pharmacy [facility] Ambulatory Pharmacy - [facility] [address] [place] [address] Eric Redmond RPH Social History Tobacco Use [...] on filedocumented in this encounter Care Teams Physician [facility] Relationship Specialty Start Date End Date Kayleigh Mallory FNP 26 [facility] [address] [place] [phone] PCP - General 02/04/19 documented as of this encounter
--- OUTSIDE RECORDS SUMMARY | 2024-03-22 16:14 | XMS_ITS | Encounter Summary ---
Author Organization [facility] Address [address] [place] [address] Care Team Providers Care Blind Hooker Name Role Phone Meredith Rapp MD Primary Care Provider Unavailabl e Reason for Visit * Reason Comments Other Encounter Details Date Type Department Care Team (Late st Contact Info) Description 06/25/2018 [facility] Rheumatology & Immunology - [facility] [address] [place] [address] Harsh Malloy NP 111 [facility], [address] [place] [address] Other Social History Tobacco Use [...] Refills Last Filled Start Date End Date HUMIRA PEN 40 mg/0.8 mL pen kit INJECT ONE PEN (40 MG) SUBCUTANEOUSLY EVERY OTHER WEEK. REFRIGERATE. 6 kit 1 9 10/21/19 19 documented in this encounter Plan of Treatment Not on file documented as of this encounter Visit Diagnoses Not on filedocumented in this encounter Discontinued Medications Medication Sig Discontinue Reason Start Date End Da te adalimumab (HUMIRA PEN) 40 mg/0.8 mL pen kit Inject 1 Pen into the skin every 14 days. Reorder 12/25/2017 06/25/2018 documented as of this encounter Care Teams Blind Hooker Relationship Specialty Start Date End Date Meredith Rapp MD PCP - General 08/09/10 08/04/18 documented as of this encounter
--- OUTSIDE RECORDS SUMMARY | 2024-03-22 16:14 | XMS_ITS | Encounter Summary ---
Author Organization [facility] Address [address] [place] [address] Care Team Providers Care Institutional Research Coordinator Name Role Phone Kayleigh Mallory WILFREDO Primary Care Provider [phone] Encounter Details Date Type Department Care Team (Late st Contact Info) Description 04/14/2020 Specialty Pharmacy [facility] - [facility] [address] [place] [address] Eric Redmond RPH Social History Tobacco Use [...] on filedocumented in this encounter Care Teams Institutional Research Coordinator Relationship Specialty Start Date End Date Kayleigh Mallory FNP [address] [place] [phone] PCP - General 02/04/19 documented as of this encounter
--- OUTSIDE RECORDS SUMMARY | 2024-03-22 16:14 | XMS_ITS | Encounter Summary ---
Author Organization [facility] Address [address] [place] [address] Care Team Providers Care Tester Armature Or Fields Name Role Phone Kayleigh Mallory WILFREDO Primary Care Provider [phone] Reason for Visit * Reason Comments Other Encounter Details Date Type Department Care Team (Late st Contact Info) Description 04/24/2019 [facility] Rheumatology & Immunology - [facility] [address] [place], [place] [phone] Harsh Malloy, ELBERT [address] [facility], [address] [place] [address] Other Social [...] documented as of this encounter Care Teams Tester Armature Or Fields Relationship Specialty Start Date End Date Kayleigh Mallory FNP [address] [place] [phone] PCP - General 02/04/19 documented as of this encounter
--- OUTSIDE RECORDS SUMMARY | 2024-03-22 16:14 | XMS_ITS | Encounter Summary ---
Author Organization [facility] Address [address] [place] [address] Care Team Providers Care System Engineer Name Role Phone Kayleigh Mallory WILFREDO Primary Care Provider [phone] Encounter Details Date Type Department Care Team (Late st Contact Info) Description 02/14/2020 Specialty Pharmacy [facility] Ambulatory Pharmacy - [facility] [address] [place] [address] Eric Redmond RPH Social History Tobacco Use [...] on filedocumented in this encounter Care Teams System Engineer Relationship Specialty Start Date End Date Kayleigh Mallory FNP [address] [place] [phone] PCP - General 02/04/19 documented as of this encounter
--- OUTSIDE RECORDS SUMMARY | 2024-03-22 16:14 | XMS_ITS | Encounter Summary ---
Author Organization [facility] Address [address] [place] [address] Care Team Providers Care Field Sales Representative Name Role Phone Meredith Rapp MD Primary Care Provider Unavailabl e Reason for Visit * Reason Onset Date Comments Results 07/13/2018 Encounter Details Date Type Department Care Team (Late st Contact Info) Description 07/13/[address] [facility] Rheumatology & Immunology - [address] [phone] Etelvina Hernandez MD [address] [place] [address], [address] [place] [address] Results Social History Tobacco Use [...] on filedocumented in this encounter Care Teams Field Sales Representative Relationship Specialty Start Date End Date Meredith Rapp MD PCP - General 08/09/10 08/04/18 documented as of this encounter
--- OUTSIDE RECORDS SUMMARY | 2024-03-22 16:14 | XMS_ITS | Encounter Summary ---
Author Organization [facility] Address [address] [place] [address] Care Team Providers Care Technical Proposal Writer Name Role Phone Kayleigh Mallory WILFREDO Primary Care Provider [phone] Encounter Details Date Type Department Care Team (Late st Contact Info) Description 07/19/2020 Specialty Pharmacy [facility] - [facility] [address] [place] [address] Eric Redmond RPH Social History Tobacco Use [...] on filedocumented in this encounter Care Teams Technical Proposal Writer Relationship Specialty Start Date End Date Kayleigh Mallory FNP [address] [place] [address] [address] [place] [phone] PCP - General 02/04/19 documented as of this encounter
--- OUTSIDE RECORDS SUMMARY | 2024-03-22 16:14 | XMS_ITS | Encounter Summary ---
Author Organization [facility] Address [address] [place] [address] Care Team Providers Care Pellet Preparation Operator Name Role Phone Kayleigh Mallory WILFREDO Primary Care Provider [phone] Encounter Details Date Type Department Care Team (Late st Contact Info) Description 01/17/2020 Specialty Pharmacy [facility] - [facility] [address] [place] [address] Eric Redmond RPH Social History Tobacco Use [...] on filedocumented in this encounter Care Teams Pellet Preparation Operator Relationship Specialty Start Date End Date Kayleigh Mallory FNP [address] [place] [phone] PCP - General 02/04/19 documented as of this encounter
--- OUTSIDE RECORDS SUMMARY | 2024-03-22 16:14 | XMS_ITS | Encounter Summary ---
Author Organization [facility] Address [address] [place] [address] Care Team Providers Care Warehouse Specialist Name Role Phone Meredith Rapp MD Primary Care Provider Unavailabl e Reason for Visit * Reason Onset Date Comments Medications Refill 07/21/2018 Encounter Details Date Type Department Care Team (Late st Contact Info) Description 07/21/2018 Refill [facility] Rheumatology & Immunology - [facility] [address] [place], [place] [address] Harsh Malloy, ELBERT 111 [facility], [address] [place] [address] Medications Refill Social History Tobacco [...] Date methotrexate 2.5 mg tablet Take 9 tablets by mouth once a week. 108 tablet 1 07/22/2018 9 documented in this encounter Miscellaneous Notes * Telephone Encounter - Marisol Tejeda RN - 07/22/2018 1341 EDTFrom: Nina Boothe Sent: 07/21/2018 6:03 EDT Subject: Medication Renewal Request Nina Boothe would like a refill of the following medications: methotrexate 2.5 mg tablet [Harsh Malloy APRN] Preferred pharmacy: [facility] - [place], [place] - [address] [facility] documented in this encounter Plan of Treatment Not on file documented as of this encounter Visit Diagnoses Not on filedocumented in this encounter Discontinued Medications Medication Sig Discontinue Reason Start Date End Da te methotrexate 2.5 mg tablet Take 9 Tabs by mouth once a week. Reorder 02/02/2018 07/21/2018 documented as of this encounter Care Teams Warehouse Specialist Relationship Specialty Start Date End Date Meredith Rapp MD PCP - General 08/09/10 08/04/18 documented as of this encounter
--- OUTSIDE RECORDS SUMMARY | 2024-03-22 16:14 | XMS_ITS | Encounter Summary ---
Author Organization [facility] Address [address] [place] [address] Care Team Providers Care Stone Cleaner Name Role Phone Unknown, Provider Primary Care Provider Unava ilable Reason for Visit * Reason Comments Joint Pain right knee has not t aking med due to a cold for 2 weeks Encounter Details Date Type Department Care Team (Late st Contact Info) Description 08/06/2018 11:00 EDT Office Visit [facility] Rheumatology & Immunology - [address] [address] Harsh Malloy, ELBERT 111 [facility], [address] [place] [address] Psoriasis with arthropathy (HCC-CMS) (Primary [...] Many Vaccine Information Statements are available in Korean and other languages. See www.immunize.org/vis [place]jas de [...] it yourself through the VAERS website at www.vaers.[facility].gov, or by calling . VAERS does not give medical advice. 6. How can I learn more? Ask your health care provider. He or she can give you the vaccine package insert or suggest other sources of information. ??? Call your local or state health department. ??? Contact the Centers for Disease Control and Prevention (CDC): - Call (5-384-YHL-INFO) or - Visit CDC???s website at www.cdc.gov/vaccines [...] Encounter Diagnoses Name Primary? 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 Encounter for long-term (current) use [...] F/u 6 months 1. Psoriasis with arthropathy ([facility]) 2. Encounter for long-term (current) use of [...] encounter Visit Diagnoses Diagnosis Psoriasis with arthropathy ([facility])- Primary Psoriatic arthropathy Encounter for long-term (current) [...] documented as of this encounter Care Teams Stone Cleaner Relationship Specialty Start Date End Date Unknown, Provider, PCP - General 08/05/18 02/03/19 documented as of this encounter
--- OUTSIDE RECORDS SUMMARY | 2024-03-22 16:14 | XMS_ITS | Encounter Summary ---
Author Organization [facility] Address [address] [place] [address] Care Team Providers Care Janitor Cleaner Name Role Phone Kayleigh Mallory WILFREDO Primary Care Provider [phone] Encounter Details Date Type Department Care Team (Late st Contact Info) Description 09/13/2019 Specialty Pharmacy [facility] Ambulatory Pharmacy - [facility] [address] [place], [place] [address] Eric Redmond RPH Social History Tobacco Use [...] on filedocumented in this encounter Care Teams Janitor Cleaner Relationship Specialty Start Date End Date Kayleigh Mallory FNP 26 [facility] [address] [place] [phone] PCP - General 02/04/19 documented as of this encounter
--- OUTSIDE RECORDS SUMMARY | 2024-03-22 16:14 | XMS_ITS | Encounter Summary ---
Author Organization [facility] Address [address] [place] [address] Care Team Providers Care Racquet Maker Name Role Phone Kayeligh Mallory WILFREDO Primary Care Provider [phone] Reason for Visit * Reason Onset Date Comments Medications Refill 05/17/2020 Encounter Details Date Type Department Care Team (Late st Contact Info) Description 05/17/2020 Refill [facility] Rheumatology & Immunology - [facility] [address] [place] [address] Harsh Malloy, SHELLFISH GROWER 111 [facility], [address] [place] [address] Medications Refill Social History Tobacco [...] change: no Refill due: May outreach Pharmacy: [facility] Renewal of Humira (adalimumab) is required for continued use; order sent per refill protocol to [facility] for dispensing. Follow-up visit scheduled with Harsh Malloy NP on 08/10/20. Eric Redmond, Pharm.D., [facility] Pharmacist Clinician - Rheumatology 05/18/2020 documented in [...] documented as of this encounter Care Teams Racquet Maker Relationship Specialty Start Date End Date Kayleigh Mallory FNP [address] [facility] [address] [place] [phone] PCP - General 02/04/19 documented as of this encounter
--- OUTSIDE RECORDS SUMMARY | 2024-03-22 16:14 | XMS_ITS | Encounter Summary ---
Author Organization [facility] Address [address] [place] [address] Care Team Providers Care Fleet Director Name Role Phone Kayleigh Mallory WILFREDO Primary Care Provider [phone] Reason for Visit * Reason Onset Date Comments Medications Refill 10/23/2020 Encounter Details Date Type Department Care Team (Late st Contact Info) Description 10/23/2020 Refill [facility] Rheumatology & Immunology - [facility] [address] [place] [address] Harsh Malloy, BUFFER OPERATOR 111 [facility], [address] [place] [address] Medications Refill Social History Tobacco [...] Take 1 Tablet by mouth daily. Pharmacy: [facility] Last Refill Date: 08/24/20 Last Visit Date: [...] documented as of this encounter Care Teams Fleet Director Relationship Specialty Start Date End Date Kayleigh Mallory FNP 26 [facility] [address] [place] [phone] PCP - General 02/04/19 documented as of this encounter
--- OUTSIDE RECORDS SUMMARY | 2024-03-22 16:14 | XMS_ITS | Encounter Summary ---
Author Organization [facility] Address [address] [place] [address] Care Team Providers Care Instructor Hairspring Name Role Phone Kayleigh Mallory WILFREDO Primary Care Provider [phone] Reason for Referral * Medication Prior Authorization (Routine) - Closed Specialty Diagnoses / Procedures Referred By Twyla love Referred To Contact Pharmacy Diagnoses Psoriatic arthritis ([facility] Harsh Malloy, ELBERT Phone: tel: fax: [facility] [address] [address] Phone: tel: fax: Referral ID Status Reason Start Date Expiration Date Visits Requested Visits Authorized [id number] Closed Medication Prior Authorization 10/26/2020 1 1 [...] Care Team (Late st Contact Info) Description 10/26/2020 Orders Only [facility] Rheumatology & Immunology [address] [address] [place], IMAN Psoriatic arthritis ([facility]) (Primary Dx) Social History Tobacco Use [...] PRIOR AUTHORIZATION Outpatient Referral Routine Psoriatic arthritis ([facility]) Ordered: 10/26/2020 documented as of this encounter Visit Diagnoses Diagnosis Psoriatic arthritis ([facility])- Primary Psoriatic arthropathy documented in this encounter Care Teams Instructor Hairspring Relationship Specialty Start Date End Date Kayleigh Mallory FNP [address] [place] [address] [address] [place] [phone] PCP - General 02/04/19 documented as of this encounter
--- OUTSIDE RECORDS SUMMARY | 2024-03-22 16:14 | XMS_ITS | Encounter Summary ---
Author Organization [facility] Address [address] [place] [address] Care Team Providers Care Interventional Physician Name Role Phone Kayleigh Mallory WILFREDO Primary Care Provider [phone] Encounter Details Date Type Department Care Team (Late st Contact Info) Description 12/20/2019 Specialty Pharmacy [facility] - [facility] [address] [place] [address] Eric Redmond RPH Social History Tobacco Use [...] on filedocumented in this encounter Care Teams Interventional Physician Relationship Specialty Start Date End Date Kayleigh Mallory FNP [address] [place] [phone] PCP - General 02/04/19 documented as of this encounter
--- OUTSIDE RECORDS SUMMARY | 2024-03-22 16:14 | XMS_ITS | Encounter Summary ---
Author Organization [facility] Address [address] [place] [address] Care Team Providers Care Kiln Placer Name Role Phone Kayleigh Mallory WILFREDO Primary Care Provider [phone] Reason for Visit * Reason Onset Date Comments Medications Refill 05/10/2019 Encounter Details Date Type Department Care Team (Late st Contact Info) Description 05/10/2019 Telephone [facility] Ambulatory Pharmacy - [facility] [address] [place], [place] [id number] Harsh Malloy, ENVIRONMENTAL SERVICES ASSOCIATE 111 [facility], [address] [place] [address] Medications Refill Social History Tobacco [...] due: Now Date of last fill: Pharmacy: [facility] Renewal of Humira (adalimumab) is required for continued use; order sent per refill protocol to [facility] for dispensing. Follow-up visit scheduled with Harsh Malloy NP on 08/13/19. Eric Redmond, Pharm.D., [facility] Pharmacist Clinician - Rheumatology 05/10/2019 documented [...] documented as of this encounter Care Teams Kiln Placer Relationship Specialty Start Date End Date Kayleigh Mallory FNP 26 [facility] [address] [place] [phone] PCP - General 02/04/19 documented as of this encounter
--- OUTSIDE RECORDS SUMMARY | 2024-03-22 16:14 | XMS_ITS | Encounter Summary ---
Author Organization [facility] Address [address] [place] [address] Care Team Providers Care Dry End Operator Name Role Phone Kayleigh Mallory WILFREDO Primary Care Provider [phone] Reason for Visit * Reason Comments Other Encounter Details Date Type Department Care Team (Late st Contact Info) Description 10/09/2019 [facility] Rheumatology & Immunology - [facility] [address] [place], [place] [id number] Harsh Malloy, ELBERT 111 [facility], [address] [place] [address] Other Social History Tobacco Use [...] on filedocumented in this encounter Care Teams Dry End Operator Relationship Specialty Start Date End Date Kayleigh Mallory FNP [address] [phone] PCP - General 02/04/19 documented as of this encounter
--- OUTSIDE RECORDS SUMMARY | 2024-03-22 16:14 | XMS_ITS | Encounter Summary ---
Author Organization [facility] Address [address] [place] [address] Care Team Providers Care Ceramic Design Engineer Name Role Phone Kayleigh Mallory WILFREDO Primary Care Provider [phone] Reason for Visit * Reason Comments Other Encounter Details Date Type Department Care Team (Late st Contact Info) Description 03/20/2020 [facility] Rheumatology & Immunology - [facility] [address] [place], [place] [id number] Harsh Malloy, ELBERT 111 [facility], [address] [place] [address] Other Social History Tobacco Use [...] 3 TO 4 MONTHS 40 Tab 03/22/2020 0 documented in this encounter Plan of Treatment Not on file documented as of this encounter Visit Diagnoses Not on filedocumented in this encounter Discontinued Medications Medication Sig Discontinue Reason Start Date End Da te methotrexate 2.5 mg tablet Take 10 Tabs by mouth once a week. Labs every 3-4 months (last drawn 04/03/19) 08/12/2019 03/22/2020 documented as of this encounter Care Teams Ceramic Design Engineer Relationship Specialty Start Date End Date Kayleigh Mallory FNP [address] [place] [address] [place] [phone] PCP - General 02/04/19 documented as of this encounter
--- OUTSIDE RECORDS SUMMARY | 2024-03-22 16:14 | XMS_ITS | Encounter Summary ---
Author Organization [facility] Address [address] [place] [address] Care Team Providers Care Tong Carrier Name Role Phone Unknown, Provider Primary Care Provider Unava ilable Reason for Visit * Reason Onset Date Comments Medications Refill 11/05/2018 Encounter Details Date Type Department Care Team (Late st Contact Info) Description 11/05/2018 Refill [facility] Rheumatology & Immunology - [facility] [address] [place], [place] [address] Harsh Malloy, ELBERT 111 [facility], [address] [place] [address] Medications Refill Social History Tobacco [...] 20:18 EDT Subject: Medication Renewal Request Nina Boothe would like a refill of the following medications: methotrexate 2.5 mg tablet [Harsh Malloy APRN] Preferred pharmacy: [facility] documented in this encounter Plan of Treatment Not on file documented as of this encounter Visit Diagnoses Not on filedocumented in this encounter Discontinued Medications Medication Sig Discontinue Reason Start Date End Da te methotrexate 2.5 mg tablet Take 9 tablets by mouth once a week. Reorder 07/22/2018 11/05/2018 documented as of this encounter Care Teams Tong Carrier Relationship Specialty Start Date End Date Unknown, Provider, PCP - General 08/05/18 02/03/19 documented as of this encounter
--- OUTSIDE RECORDS SUMMARY | 2024-03-22 16:14 | XMS_ITS | Encounter Summary ---
Author Organization [facility] Address [address] [place] [address] Care Team Providers Care Media Clerk Name Role Phone Kayleigh Mallory WILFREDO Primary Care Provider [phone] Reason for Visit * Reason Comments Follow-up Encounter Details Date Type Department Care Team (Late st Contact Info) Description 08/24/2020 10:00 EDT Office Visit [facility] Rheumatology & Immunology - [address] [id number] Harsh Malloy, ELBERT [address] [place] [address], [facility] [address] [place] [address] Psoriatic arthropathy ([facility]) (Primary Dx); Encounter for long-term (current) use [...] to avoid sx and needs to see IMAGING ENGINEER to check anterior pelvic tissue Patient Active [...] supports Encounter Diagnoses Name Primary? Psoriatic arthropathy ([facility]) Yes ??? Encounter for long-term (current) use of medications PLAN: 1. Continue current meds. 2. Labs every 3-4 months 3. F.u 6 months 1. Psoriatic arthropathy ([facility]) 2. Encounter for long-term (current) use of medications No orders of the defined types were placed in this encounter. Barriers to learning identified: No Patient verbalizes understanding and agrees with plan Yes I was directly supervised by: Dr. Gray . They were present in clinic and available for consult if needed. Harsh Malloy, ILEANA 08/24/2020 10:08 I spent a total of 30 minutes on the date of this encountermeeting with the patient and reviewing documentation/coordinating care as described in the above note. No procedures were performed at the time of the visit. documented in this encounter Plan of Treatment Not on file documented as of this encounter Visit Diagnoses Diagnosis Psoriatic arthropathy ([facility])- Primary Psoriatic arthropathy Encounter for long-term (current) use of medications Encounter for long-term (current) use of other medications documented in this encounter Discontinued Medications Medication Sig Discontinue Reason Start Date End Da te folic acid (FOLVITE) 1 mg tablet TAKE 1 TABLET BY MOUTH EVERY DAY Reorder 10/23/2019 08/24/2020 documented as of this encounter Care Teams Media Clerk Relationship Specialty Start Date End Date Kayleigh Mallory FNP [address] [place] [address] [place] [phone] PCP - General 02/04/19 documented as of this encounter
--- OUTSIDE RECORDS SUMMARY | 2024-03-22 16:14 | XMS_ITS | Encounter Summary ---
Author Organization [facility] Address [address] [place] [address] Care Team Providers Care Fitting Supervisor Name Role Phone Kayleigh Mallory WILFREDO Primary Care Provider [phone] Encounter Details Date Type Department Care Team (Late st Contact Info) Description 06/19/2020 Specialty Pharmacy [facility] Ambulatory Pharmacy - [facility] [address] [place] [address] Eric Redmond RPH Social History Tobacco Use [...] on filedocumented in this encounter Care Teams Fitting Supervisor Relationship Specialty Start Date End Date Kayleigh Mallory FNP [address] [place] [address] [address] [place] [phone] PCP - General 02/04/19 documented as of this encounter
--- OUTSIDE RECORDS SUMMARY | 2024-03-22 16:14 | XMS_ITS | Encounter Summary ---
Author Organization [facility] Address [address] [place] [address] Care Team Providers Care Autobody Technician Name Role Phone Kayleigh Mallory WILFREDO Primary Care Provider [phone] Encounter Details Date Type Department Care Team (Late st Contact Info) Description 11/08/2019 Specialty Pharmacy [facility] Ambulatory Pharmacy - [facility] [address] [place] [address] Eric Redmond RPH Social History Tobacco Use [...] on filedocumented in this encounter Care Teams Autobody Technician Relationship Specialty Start Date End Date Kayleigh Mallory FNP 26 [facility] [address] [place] [phone] PCP - General 02/04/19 documented as of this encounter
--- OUTSIDE RECORDS SUMMARY | 2024-03-22 16:14 | XMS_ITS | Encounter Summary ---
Author Organization [facility] Address [address] [place] [address] Care Team Providers Care Restaurant Kitchen Manager Name Role Phone Unknown, Provider Primary Care Provider Unava ilable Encounter Details Date Type Department Care Team (Late st Contact Info) Description 10/22/2018 Specialty Pharmacy [facility] Ambulatory Pharmacy - [facility] [address] [place], [place] [address] Eric Redmond [place] Social History Tobacco Use [...] on filedocumented in this encounter Care Teams Restaurant Kitchen Manager Relationship Specialty Start Date End Date Unknown, Provider, PCP - General 08/05/18 02/03/19 documented as of this encounter
--- OUTSIDE RECORDS SUMMARY | 2024-03-22 16:14 | XMS_ITS | Encounter Summary ---
Author Organization [facility] Address [address] [place] [address] Care Team Providers Care Integrated Pest Management Technician Name Role Phone Kayleigh Mallory WILFREDO Primary Care Provider [phone] Encounter Details Date Type Department Care Team (Late st Contact Info) Description 03/29/2020 Specialty Pharmacy [facility] Ambulatory Pharmacy - [facility] [address] [place] [address] Leta Medina, [facility] Social History Tobacco Use Types Packs/Day Years [...] on filedocumented in this encounter Care Teams Integrated Pest Management Technician Relationship Specialty Start Date End Date Kayleigh Mallory FNP [address] [place] [address] [address] [place] [phone] PCP - General 02/04/19 documented as of this encounter
--- OUTSIDE RECORDS SUMMARY | 2024-03-22 16:14 | XMS_ITS | Encounter Summary ---
Author Organization [facility] Address [address] [place] [address] Care Team Providers Care Care Transition Mgr Name Role Phone Unknown, Provider Primary Care Provider Unava ilable Encounter Details Date Type Department Care Team (Late st Contact Info) Description 11/25/2018 Specialty Pharmacy [facility] Ambulatory Pharmacy - [facility] [address] [place], [place] [address] Eric Redmond [place] Social History Tobacco Use [...] on filedocumented in this encounter Care Teams Care Transition Mgr Relationship Specialty Start Date End Date Unknown, Provider, PCP - General 08/05/18 02/03/19 documented as of this encounter
--- OUTSIDE RECORDS SUMMARY | 2024-03-22 16:14 | XMS_ITS | Encounter Summary ---
Author Organization [facility] Address [address] [place] [address] Care Team Providers Care Registration Specialist Name Role Phone Kayleigh Mallory WILFREDO Primary Care Provider [phone] Reason for Visit * Reason Comments Other Encounter Details Date Type Department Care Team (Late st Contact Info) Description 04/30/2019 [facility] Rheumatology & Immunology - [facility] [address] [place], [place] [id number] Harsh Malloy, ELBERT 111 [facility], [address] [place] [address] Other Social History Tobacco Use [...] Encounter - Marisol Tejeda RN - 04/30/2019 1277 EST Medication: folic acid 1 mg Last follow up:02/05/19 Next follow up:08/13/19 Last labs:04/03/19 [facility] documented in this encounter Plan of Treatment Not on file documented as of this encounter Visit Diagnoses Not on filedocumented in this encounter Discontinued Medications Medication Sig Discontinue Reason Start Date End Da te folic acid (FOLVITE) 1 mg tablet Take 1 Tab by mouth daily. 11/12/2018 04/30/2019 documented as of this encounter Care Teams Registration Specialist Relationship Specialty Start Date End Date Kayleigh Mallory FNP 26 [facility] [address] [place] [phone] PCP - General 02/04/19 documented as of this encounter
--- OUTSIDE RECORDS SUMMARY | 2024-03-22 16:14 | XMS_ITS | Encounter Summary ---
Author Organization [facility] Address [address] [place] [address] Care Team Providers Care Dining Room Attendant Cafeteria Name Role Phone Kayleigh Mallory WILFREDO Primary Care Provider [phone] Reason for Visit * Reason Comments Other Encounter Details Date Type Department Care Team (Late st Contact Info) Description 10/23/2019 [facility] Rheumatology & Immunology - [facility] [address] [place], [place] [phone] Harsh Malloy, ELBERT 111 [facility], [address] [place] [address] Other Social History Tobacco Use [...] documented as of this encounter Care Teams Dining Room Attendant Cafeteria Relationship Specialty Start Date End Date Kayleigh Mallory FNP [address] [place] [address] [address] [place] [address] PCP - General 02/04/19 documented as of this encounter
--- OUTSIDE RECORDS SUMMARY | 2024-03-22 16:14 | XMS_ITS | Encounter Summary ---
Author Organization [facility] Address [address] [place] [address] Care Team Providers Care Chief Technician X Ray Name Role Phone Kayleigh Mallory WILFREDO Primary Care Provider [phone] Reason for Visit * Reason Comments Follow-up 6 months Joint Pain knees and hands Flu Vaccine Encounter Details Date Type Department Care Team (Late st Contact Info) Description 02/08/2020 9:30 EDT Office Visit [facility] - [address] [id number] Harsh Malloy, ELBERT 111 [facility], [address] [place] [address] Psoriatic arthropathy (HCC-CMS) (Primary Dx); [...] Progress Notes * Harsh Malloy APRN - 02/08/2020 09 EDT Images from the original note were [...] participate in today's encounter visit: Harsh Malloy, FEED MILL MANAGER No psoriasis Intermittent joint flares - dependent [...] encounter Visit Diagnoses Diagnosis Psoriatic arthropathy ([facility])- Primary Psoriatic arthropathy Encounter for long-term (current) use of medications Encounter for long-term (current) use of other medications Need for influenza vaccination Need for prophylactic vaccination and inoculation against influenza documented in this encounter Orders Immunization/Injection Count Last Ordered Date First Ordered Date INFLUENZA VACCINE QUAD PF 0. 5 ML IM (6 MOS+) 1 02/08/2020 documented in this encounter Care Teams Chief Technician X Ray Relationship Specialty Start Date End Date Kayleigh Mallory FNP [address] [phone] PCP - General 02/04/19 documented as of this encounter
--- OUTSIDE RECORDS SUMMARY | 2024-03-22 16:14 | XMS_ITS | Encounter Summary ---
Author Organization [facility] Address [address] [place] [address] Care Team Providers Care Residential Installer Name Role Phone Kayleigh Mallory WILFREDO Primary Care Provider [phone] Encounter Details Date Type Department Care Team (Late st Contact Info) Description 08/12/2019 Telephone [facility] Rheumatology & Immunology - [facility] [address] [place], [place] [id number] Harsh Malloy NP 111 [facility], [address] [place] [address] Social History Tobacco Use Types [...] Encounter - Harsh Malloy APRN - 08/12/2019 1585 EDT Left msg- her informed consent form is an imbeded hyperlink in her zoom invitation, it is not an attachment. documented in this encounter Plan of Treatment Not on file documented as of this encounter Visit Diagnoses Not on filedocumented in this encounter Care Teams Residential Installer Relationship Specialty Start Date End Date Kayleigh Mallory FNP [address] [place] [phone] PCP - General 02/04/19 documented as of this encounter
--- OUTSIDE RECORDS SUMMARY | 2024-03-22 16:14 | XMS_ITS | Encounter Summary ---
Author Organization [facility] Address [address] [place] [address] Care Team Providers Care Parts Finisher Name Role Phone Kayleigh Mallory WILFREDO Primary Care Provider [phone] Encounter Details Date Type Department Care Team (Late st Contact Info) Description 07/26/2019 Specialty Pharmacy [facility] - [facility] [address] [place] [address] Eric Redmond RPH Social History Tobacco Use [...] on filedocumented in this encounter Care Teams Parts Finisher Relationship Specialty Start Date End Date Kayleigh Mallory FNP 26 [facility] [address] [place] [phone] PCP - General 02/04/19 documented as of this encounter
--- OUTSIDE RECORDS SUMMARY | 2024-03-22 16:14 | XMS_ITS | Encounter Summary ---
Author Organization [facility] Address [address] [place] [address] Care Team Providers Care Substance Abuse Technician Name Role Phone Unknown, Provider Primary Care Provider Unava ilable Reason for Visit * Reason Onset Date Comments Medications Refill 10/20/2018 Encounter Details Date Type Department Care Team (Late st Contact Info) Description 10/20/2018 Telephone [facility] Rheumatology & Immunology - [facility] [address] [place], [place] [phone] Harsh Malloy, ELBERT 111 [facility], [address] [place] [address] Medications Refill Social History Tobacco [...] - Talisha Loja RN - 10/22/2018 0927 EDTFrom: Nina Boothe Sent: 10/20/2018 15:25 EDT Subject: Medication Renewal Request Nina Boothe would like a refill of the following medications: HUMIRA PEN 40 mg/0.8 mL pen kit [Harsh Malloy APRN] Patient Comment: [facility] says that they are waiting for a refill authorization from my provider. I am not sure why as they were supposed to be processing an insurance coverage change....but they asked that I reach out to you. Preferred pharmacy: [facility] - [address] documented in this encounter Plan of [...] documented as of this encounter Care Teams Substance Abuse Technician Relationship Specialty Start Date End Date Unknown, Provider, PCP - General 08/05/18 02/03/19 documented as of this encounter
--- OUTSIDE RECORDS SUMMARY | 2024-03-22 16:14 | XMS_ITS | Encounter Summary ---
Author Organization [facility] Address [address] [place] [address] Care Team Providers Care Bindery Assistant Name Role Phone Kayleigh Mallory WILFREDO Primary Care Provider [phone] Reason for Visit * Reason Comments Follow-up Encounter Details Date Type Department Care Team (Late st Contact Info) Description 08/12/2019 13:00 EDT Telemedicine [facility] Rheumatology & Immunology - [address] [phone] Harsh Malloy, PILOT BOAT OPERATOR [address] [place] [address], [address] [place] [address] Psoriatic arthropathy (HCC-CMS) (Primary Dx); [...] allergies ??? Psoriasis ??? 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 Psoriatic arthropathy ([facility]) Yes ??? Encounter for long-term [...] office. F/u 6 months 1. Psoriatic arthropathy ([facility]) 2. Encounter for long-term (current) use of medications No orders of the defined types were placed in this encounter. Barriers to learning identified: No Patient verbalizes understanding and agrees with plan Yes I was directly supervised by: Dr. Gray . They were present in clinic and available for consult if needed. Harsh Malloy APRN 08/12/2019 8:27 I spent 30 minutes in [id number] via zoom with pt. documented in this encounter Plan of Treatment Not on file documented as of this encounter Visit Diagnoses Diagnosis Psoriatic arthropathy ([facility])- Primary Psoriatic arthropathy Encounter for [...] documented as of this encounter Care Teams Bindery Assistant Relationship Specialty Start Date End Date Kayleigh Mallory FNP [address] [place] [address] [address] [place] [phone] PCP - General 02/04/19 documented as of this encounter
--- OUTSIDE RECORDS SUMMARY | 2024-03-22 16:14 | XMS_ITS | Encounter Summary ---
Author Organization [facility] Address [address] [place] [address] Care Team Providers Care Clinical Studies Specialist Name Role Phone Kayleigh Mallory WILFREDO Primary Care Provider [phone] Encounter Details Date Type Department Care Team (Late st Contact Info) Description 10/11/2019 Specialty Pharmacy [facility] Ambulatory Pharmacy - [facility] [address] [place] [address] Eric Redmond RPH Social History Tobacco Use [...] on filedocumented in this encounter Care Teams Clinical Studies Specialist Relationship Specialty Start Date End Date Kayleigh Mallory FNP 26 [facility] [address] [place] [phone] PCP - General 02/04/19 documented as of this encounter
--- OUTSIDE RECORDS SUMMARY | 2024-03-22 16:14 | XMS_ITS | Encounter Summary ---
Author Organization [facility] Address [address] [place] [address] Care Team Providers Care Precision Lens Generator Name Role Phone Kayleigh Mallory WILFREDO Primary Care Provider [phone] Encounter Details Date Type Department Care Team (Late st Contact Info) Description 08/21/2020 Specialty Pharmacy [facility] Ambulatory Pharmacy - [facility] [address] [place] [address] Eric Redmond RPH Social History Tobacco Use [...] on filedocumented in this encounter Care Teams Precision Lens Generator Relationship Specialty Start Date End Date Kayleigh Mallory FNP [address] [place] [address] [address] [place] [phone] PCP - General 02/04/19 documented as of this encounter
--- OUTSIDE RECORDS SUMMARY | 2024-03-22 16:14 | XMS_ITS | Encounter Summary ---
Author Organization [facility] Address [address] [place] [address] Care Team Providers Care Folder Seamer Name Role Phone Kayleigh Mallory WILFREDO Primary Care Provider [phone] Encounter Details Date Type Department Care Team (Late st Contact Info) Description 09/26/2020 Specialty Pharmacy [facility] Ambulatory Pharmacy - [facility] [address] [place] [address] Eric Redmond RPH Social History Tobacco Use [...] on filedocumented in this encounter Care Teams Folder Seamer Relationship Specialty Start Date End Date Kayleigh Mallory FNP [address] [place] [address] [address] [place] [address] PCP - General 02/04/19 documented as of this encounter
--- OUTSIDE RECORDS SUMMARY | 2024-03-22 16:14 | XMS_ITS | Encounter Summary ---
Author Organization [facility] Address [address] [place] [address] Care Team Providers Care Squilgeer Name Role Phone Kayleigh Mallory WILFREDO Primary Care Provider [phone] Encounter Details Date Type Department Care Team (Late st Contact Info) Description 05/15/2020 Specialty Pharmacy [facility] Ambulatory Pharmacy - [facility] [address] [place] [address] Eric Redmond RPH Social History Tobacco Use [...] on filedocumented in this encounter Care Teams Squilgeer Relationship Specialty Start Date End Date Kayleigh Mallory FNP [address] [place] [address] [address] [place] [phone] PCP - General 02/04/19 documented as of this encounter
--- OUTSIDE RECORDS SUMMARY | 2024-03-22 16:14 | XMS_ITS | Encounter Summary ---
Author Organization [facility] Address [address] [place] [address] Care Team Providers Care Channel Supervisor Name Role Phone Kayleigh Mallory WILFREDO Primary Care Provider [phone] Encounter Details Date Type Department Care Team (Late st Contact Info) Description 05/10/2019 Specialty Pharmacy [facility] Ambulatory Pharmacy - [facility] [address] [place] [address] Eric Redmond RPH Social History Tobacco Use [...] on filedocumented in this encounter Care Teams Channel Supervisor Relationship Specialty Start Date End Date Kayleigh Mallory FNP 26 [facility] [address] [place] [phone] PCP - General 02/04/19 documented as of this encounter
--- OUTSIDE RECORDS SUMMARY | 2024-03-22 16:14 | XMS_ITS | Encounter Summary ---
Author Organization [facility] Address [address] [place] [address] Care Team Providers Care Health And Fitness Professor Name Role Phone Unknown, Provider Primary Care Provider Unava ilable Reason for Referral * Medication Prior Authorization (Routine) - Closed Specialty Diagnoses / Procedures Referred By Twyla love Referred To Contact Pharmacy Diagnoses Psoriatic arthropathy ([facility]) Encounter for long-term (current) use of medications Hammer toes of both feet Harsh Malloy, ELBERT Phone: tel: fax: [facility] [address] [address] Phone: tel: fax: Referral ID Status Reason Start Date Expiration Date Visits Requested Visits Authorized [id number] Closed Medication Prior Authorization 10/16/2018 1 1 [...] Care Team (Late st Contact Info) Description 10/16/2018 Telephone [facility] Rheumatology & Immunology - [address] [address] Harsh Malloy NP 111 [facility], [address] [place] [address] Prior Auth, Medication (Humira) Social [...] Notes * Telephone Encounter - Eric Redmond, [facility] - 11/03/2018 1000 EDT Routine Tuberculosis Risk Assessment for Use of Biologic Medications This patient is using a biologic medication, Humira (adalimumab). Following the [place] [employer] of[employer]he[employer]ology guidance, a risk assessment of [...] (tuberculosis)? NO Have you traveled outside the [place] in the past 5 years, specifically to [place], [place], [place], or Eastern [place]*? NO Have you worked or lived in a correctional facility, long-term care facility, or homeless group home in the past 5 years? NO Are you a healthcare worker? NO A risk for tuberculosis was not identified and re-screening is not recommended at this time. Repeat TB risk assessment in 5 years (NOVEMBER/2023). *[place], [place], [place], [place], [place], [place], [place], [place], [place], [place], [place], [place], [place], [place], [place], [place], [place], [place], [place], [place], [place]. Erick PFEIFFER, et al. Arthritis Care & Research. 2012. 64(5): 553-167. * Telephone Encounter - Jossy Fuchs - 10/20/2018 3152 EDT Prior Authorization Approval Medication: Humira 40mg/0.8mL pen Approval Dates: 09/21/2018 - 10/21/2019 Authorization Number: [id number] Pharmacy: [facility] or [facility] (plan restriction) Notes: 10/22- Left msg to inform pt of approval & pharmacy restrictions. Prior Authorization Submission Process Medication: Humira 40mg/0.8mL pen Insurance: [place] ([id number]) Date PA Request Received: 10/16/2018 PA Submission Date: 10/21/2018 * Telephone Encounter - Marleny Rodriguez - 10/16/2018 1419 EDT Reason for Call: Prior Auth, Medication (Humira) Summary/Symptoms: [facility] Specialty Pharmacy calling to state a pt needs a PA done for Humira. They arerequesting a call back with decision once received. Marleny Rodriguez 10/16/2018 15:04 documented in this encounter Plan of Treatment Scheduled Referrals Name Type Priority Associated Diagnoses Order Schedule AMB MEDICATION PRIOR AUTHORIZATION Outpatient Referral Routine Psoriatic arthropathy ([facility]) Encounter for long-term (current) use of medications Hammer toes of both feet Ordered: 10/16/2018 documented as of this encounter Visit Diagnoses Diagnosis Psoriatic arthropathy ([facility])- Primary Psoriatic arthropathy Encounter for long-term (current) use of medications Encounter for long-term (current) use of other medications Hammer toes of both feet documented in this encounter Care Teams Health And Fitness Professor Relationship Specialty Start Date End Date Unknown, Provider, PCP - General 08/05/18 02/03/19 documented as of this encounter
--- OUTSIDE RECORDS SUMMARY | 2024-03-22 16:14 | XMS_ITS | Encounter Summary ---
Author Organization [facility] Address [address] [place] [address] Care Team Providers Care Petroleum Engineering Professor Name Role Phone Unknown, Provider Primary Care Provider Unava ilable Encounter Details Date Type Department Care Team (Late st Contact Info) Description 12/22/2018 Specialty Pharmacy [facility] - [facility] [address] [place], [place] [phone] Eric Redmond [place] Social History Tobacco Use [...] on filedocumented in this encounter Care Teams Petroleum Engineering Professor Relationship Specialty Start Date End Date Unknown, Provider, PCP - General 08/05/18 02/03/19 documented as of this encounter
--- OUTSIDE RECORDS SUMMARY | 2024-03-22 16:14 | XMS_ITS | Encounter Summary ---
Author Organization [facility] Address [address] [place] [address] Care Team Providers Care Beveling And Edging Machine Operator Name Role Phone Kayleigh Mallory WILFREDO Primary Care Provider [phone] Encounter Details Date Type Department Care Team (Late st Contact Info) Description 08/10/2020 Abstract [facility] Rheumatology & Immunology - [facility] [address] [place], [place] [phone] Harsh Malloy, ELBERT [address] [facility], [address] [place] [address] Social History Tobacco Use Types [...] DIFFERENTIAL (08/10/2020 7:32 EDT) WBC, External 6.48 [facility] RBC, External 4.67 [facility] Hemoglobin, External 14.4 [facility] HCT, External 43.4 [facility] MCV, External 92.9 [facility] MCH, External 30.8 [facility] MCHC, External 33.2 [facility] PLT, External 337 [facility] RDW-CV, External 13.0 [facility] Neutrophils, External 60 [facility] Lymphocytes, External 27.6 [facility] Monocytes, External 8.2 [facility] Eosinophils, External 3.1 [facility] Basophils, External 0.8 [facility] ABS Neutrophils, External 3.89 [facility] ABS Lymphs, External 1.79 [facility] ABS Monocytes, External 0.53 [facility] ABS Eosinophils, External 0.20 [facility] ABS Basophils, External 0.05 [facility] Blood VENOUS BLOOD / Unknown 08/10/2020 7:32 EDT us Harsh Malloy HEALTH PSYCHOLOGIST PACKAGES & DNA PROBE ORDERA BLES Final Result [facility] * COMPREHENSIVE METABOLIC PANEL (CMP) (08/10/2020 7:32 EDT) GFR, Calculated, External 52.16 [facility] Glucose, Serum, External 119 [facility] Comment:high Albumin, External 4.1 [facility] Total Alkaline Phosphatase, External 79 [facility] ALT, External 36 [facility] AST, External 27 [facility] BUN, External 13 [facility] Calculated Calcium, External [facility] Calcium, External 8.8 [facility] Chloride, External 103 [facility] CO2, External 27.3 [facility] Creatinine, External 1.1 [facility] Comment:high Fasting?, External [facility] Potassium, External 4.0 [facility] Sodium, External 141 [facility] Total Protein, External 7.6 [facility] Bilirubin, Total, External 0.7 [facility] Blood VENOUS BLOOD / Unknown 08/10/2020 7:32 EDT us Harsh Malloy HEALTH PSYCHOLOGIST CHEMISTRY & BLOOD GAS ORDER GABY Final Result [facility] documented in this encounter Visit Diagnoses Not on filedocumented in this encounter Care Teams Beveling And Edging Machine Operator Relationship Specialty Start Date End Date Kayleigh Mallory FNP [address] [place] [address] [address] [place] [address] PCP - General 02/04/19 documented as of this encounter
--- OUTSIDE RECORDS SUMMARY | 2024-03-22 16:14 | XMS_ITS | Encounter Summary ---
Author Organization [facility] Address [address] [place] [address] Care Team Providers Care Crisis Nurse Name Role Phone Meredith Rapp MD Primary Care Provider Unavailabl e Reason for Visit * Reason Comments Other Encounter Details Date Type Department Care Team (Late st Contact Info) Description 06/17/2018 [facility] Rheumatology & Immunology - [facility] [address] [place] [address] Etelvina Hernandez MD [address] [place] [address], [address] [place] [address] Other Social History Tobacco Use [...] on filedocumented in this encounter Care Teams Crisis Nurse Relationship Specialty Start Date End Date Meredith Rapp MD PCP - General 08/09/10 08/04/18 documented as of this encounter
--- OUTSIDE RECORDS SUMMARY | 2024-03-22 16:14 | XMS_ITS | Encounter Summary ---
Author Organization [facility] Address [address] [place] [address] Care Team Providers Care Olive Pitter Name Role Phone Kayleigh Mallory WILFREDO Primary Care Provider [phone] Encounter Details Date Type Department Care Team (Late st Contact Info) Description 02/22/2019 Specialty Pharmacy [facility] Ambulatory Pharmacy - [facility] [address] [place] [address] Eric Redmond RPH Social History Tobacco Use [...] on filedocumented in this encounter Care Teams Olive Pitter Relationship Specialty Start Date End Date Kayleigh Mallory FNP 26 [facility] [address] [place] [phone] PCP - General 02/04/19 documented as of this encounter
--- OUTSIDE RECORDS SUMMARY | 2024-03-22 16:15 | XMS_ITS | Encounter Summary ---
Author Organization [facility] Address [address] [place] [address] Care Team Providers Care Steam Boiler Fireman Name Role Phone Meredith Rapp MD Primary Care Provider Unavailabl e Reason for Visit * Reason Comments Other Encounter Details Date Type Department Care Team (Late st Contact Info) Description 02/01/2018 [facility] Rheumatology & Immunology - [address] [address] Etelvina Hernandez MD [address] [place] [address], [address] [place] [address] Other Social History Tobacco Use [...] shopping? Answer Date of Assessment Author No 08/06/2017 11:35 EDT documented as of this encounter Mental Status * Because of a physical, mental, or emotional condition, does this person have serious difficulty concentrating, remembering, or making decisions? Answer Entry Date Author No 08/06/2017 11:35 EDT documented in this encounter Ordered Prescriptions [...] documented as of this encounter Care Teams Steam Boiler Fireman Relationship Specialty Start Date End Date Meredith Rapp MD PCP - General 08/09/10 08/04/18 documented as of this encounter
--- OUTSIDE RECORDS SUMMARY | 2024-03-22 16:15 | XMS_ITS | Encounter Summary ---
Author Organization [facility] Address [address] [place] [address] Care Team Providers Care Pricing Analyst Name Role Phone Meredith Rapp MD Primary Care Provider Unavailabl e Encounter Details Date Type Department Care Team (Latest Contact Info) Description 12/02/2017 14:45 EDT - 12/02/2017 23:59 EDT Hospital Encounter [address] [address] Unknown, Provider, Discharge Disposition: Home or Self [...] 08/06/2017 11:35 EDT documented in this encounter Medications at Time of Discharge acetaminophen (TYLENOL) 500 mg tablet Take 2 Tablets by mouth every 6 hours as needed. cetirizine (ZYRTEC) 10 mg tablet Take 1 Tablet by mouth daily. DOCUSATE SODIUM (COLACE ORAL)Indications:N eed for pneumococcal vaccination,Psoria tic arthropathy ([facility]),Encounte r for long-term (current) use of medications,Hammer toes of both feet,Psoriasis with arthropathy ([facility]) Take by mouth. fluocinonide (LIDEX) 0.05 % [...] Every two weeks. 6 Pen 2 05/14/2017 8 folic acid (FOLVITE) 1 mg tablet Take 1 Tab by mouth daily. 90 Tab 1 05/07/2017 8 methotrexate 2.5 mg tablet Take 9 Tabs by mouth once a week. 108 Tab 3 05/07/2017 8 documented as of this encounter Discharge Disposition Disposition Code Departure Means Destination Home or Self Long Term documented in this encounter Plan of Treatment Not on file documented as of this encounter Visit Diagnoses Not on filedocumented in this encounter Care Teams Pricing Analyst Relationship Specialty Start Date End Date Meredith Rapp MD PCP - General 08/09/10 08/04/18 documented as of this encounter
--- OUTSIDE RECORDS SUMMARY | 2024-03-22 16:15 | XMS_ITS | Encounter Summary ---
Author Organization [facility] Address [address] [place] [address] Care Team Providers Care Truck Car And Bus Cleaner Name Role Phone Meredith Rapp MD Primary Care Provider Unavailabl e Reason for Referral * Medication Prior Authorization (Routine) - Closed Specialty Diagnoses / Procedures [facility] Referred To Contact Diagnoses Psoriasis with arthropathy ([facility]) Nat Sutherland MD Phone: tel: fax: Referral ID Status Reason Start Date Expiration Date Visits Requested Visits Authorized Closed Medication Prior Authorization 6 1 1 [...] st Contact Info) Description 02/19/2016 Orders Only [facility] Rheumatology & Immunology - [facility] [address] [place], [place] [id number] Libertad Shelley, IMAN Psoriasis with arthropathy ([facility]) ([facility]) (Primary Dx) Social History Tobacco Use [...] shopping? Answer Date of Assessment Author No 11/06/2015 10:23 EDT documented as of this encounter Mental Status * Because of a physical, mental, or emotional condition, does this person have serious difficulty concentrating, remembering, or making decisions? Answer Entry Date Author No 11/06/2015 10:23 EDT documented in this encounter Plan of Treatment Scheduled Referrals Name Type Priority Associated Diagnoses Order Schedule AMB MEDICATION PRIOR AUTHORIZATION Outpatient Referral Routine Psoriasis with arthropathy ([facility]) ([facility]) Ordered: 02/19/2016 documented as of this encounter Visit Diagnoses Diagnosis Psoriasis with arthropathy ([facility])- Primary Psoriatic arthropathy documented in this encounter Care Teams Truck Car And Bus Cleaner Relationship Specialty Start Date End Date Meredith Rapp MD PCP - General 08/09/10 08/04/18 documented as of this encounter
--- OUTSIDE RECORDS SUMMARY | 2024-03-22 16:15 | XMS_ITS | Encounter Summary ---
Author Organization [facility] Address [address] [place] [address] Care Team Providers Care Teleprinter Name Role Phone Meredith Rapp MD Primary Care Provider Unavailabl e Encounter Details Date Type Department Care Team ([facility] st Contact Info) Description 12/02/2017 Results Only [facility] [phone] Jv Stein, DO [address] [place] [address] Social History Tobacco Use Types [...] 08/06/2017 11:35 EDT documented in this encounter Plan of [...] ? REILLY HUI ? Accession #: ? [id number] ? : ? 1970 (Age: 47) ??F ? Collect Date: ? 12/02/2017 ? Location: ? [facility] ? Receive Date: ? 12/02/2017 ? Provider: JV STEIN DO Copy to: MEREDITH RAPP MD ? [...] (ASCP) 12/03/2017 7:32 AM End of Report [facility] 12/02/2017 16:5 1 EDT 12/02/2017 16:51 EDT us Jv Stein DO PATHOLOGY ORDERABLES Final Res ult [facility] [address] [place] [address] documented in this encounter Visit Diagnoses Not on filedocumented in this encounter Care Teams Teleprinter Relationship Specialty Start Date End Date Meredith Rapp MD PCP - General 08/09/10 08/04/18 documented as of this encounter
--- OUTSIDE RECORDS SUMMARY | 2024-03-22 16:15 | XMS_ITS | Encounter Summary ---
Author Organization [facility] Address [address] [place] [address] Care Team Providers Care Performance Improvement Specialist Name Role Phone Meerdith Rapp MD Primary Care Provider Unavailabl e Reason for Visit * Reason Comments Other Encounter Details Date Type Department Care Team (Late st Contact Info) Description 01/07/2014 [facility] Rheumatology & Immunology - [facility] [address] [place] [address] Tabatha Degroot PAAltafC [address] [place] [address] Other Social History Tobacco Use Types Packs/Day Years Used Date Smoking Tobacco: Never Smokeless Tobacco: Never Alcohol Use Standard Drinks/Week Comments No 0 (1 standard drink = 0.6 oz pur e alcohol) Comments No Sex and Gender Information Value Date Recorded Sex Assigned at Female 06/29/2019 10:58 EST Legal Sex Female 18:23 EST Gender Identity Female 06/29/2019 10:58 EST Sexual Orientation Straight 06/29/2019 10 :58 EST documented as of this encounter Miscellaneous Notes * Telephone Encounter - Sylvie Wynn RN - 01/10/2014 1254 EDT Pt called back to inform us she had labs completed this morning. [facility]; Galen will fax labs as soon as they result to [phone] * Telephone Encounter - Sylvie Wynn RN - 01/10/2014 0932 EDT Pt has labs done at [facility]; last labs 09/16/13. Standing external orders available until 01/12/14. documented in this encounter Plan of Treatment Not on file documented as of this encounter Visit Diagnoses Not on filedocumented in this encounter Care Teams Performance Improvement Specialist Relationship Specialty Start Date End Date Meredith Rapp MD PCP - General 08/09/10 08/04/18 documented as of this encounter
--- OUTSIDE RECORDS SUMMARY | 2024-03-22 16:15 | XMS_ITS | Encounter Summary ---
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 Answer Date of Assessment Author No 05/14/2017 10:58 EST documented as of this encounter Mental Status * Because of a physical, mental, or emotional condition, does this person have serious difficulty concentrating, remembering, or making decisions? Answer Entry Date Author No 05/14/2017 10:58 EST documented in this encounter Discharge Diagnoses Diagnosis L40.50 Arthropathic [...] Last Filled Start Date End Date adalimumab (HUMIRA PEN) 40 mg/0.8 mL pen [...] Problem List Diagnosis ??? Psoriasis with arthropathy ([facility]) ??? Encounter for long-term (current) use of [...] she will have any trouble with it. Iain call if necessary. Plan: continue Enbrel until [...] rheumatology office or PCP office. 5. 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[facility]) ([facility]) Ordered: 05/14/2017 documented as of this encounter Results * COMPREHENSIVE METABOLIC PANEL (CMP) (05/14/2017 11:56 EST) Potassium 4.2 3.5 - 5.0 mEq/L 05/14/2017 13:06 [facility] Sodium 141 136 - 145 mEq/L 05/14/2017 13:06 [facility] Chloride 103 96 - 110 mEq/L 05/14/2017 13:06 [facility] CO2 26 22 - 32 mEq/L 05/14/2017 13:06 [facility] Total Alkaline Phosphatase 61 38 - 126 U/L 05/14/2017 13:06 [facility] Bilirubin, Total 0.6 <1.4 mg/dl 05/14/19 18 13:06 [facility] AST 26 15 - 46 U/L 05/14/2017 13:06 [facility] ALT 36 <53 U/L 05/14/2017 13:06 [facility] Albumin 4.5 3.4 - 4.9 g/dl 05/14/2017 13:06 [facility] Total Protein 7.6 6.3 - 8.2 g/dl 05/14/2017 13:06 [facility] Creatinine 0.89 0.52 - 1.04 mg/dl 05/14/2017 13:06 [facility] GFR, Calculated 77 >60 ml/min/1.7 3m2 05/14/2017 13:06 [facility] Comment: eGFR calculated using CKD-EPI equation for non Americans. Multiply eGFR by 1.16 for Americans. BUN 18 10 - 26 mg/dl 05/14/2017 13:06 [facility] Calcium 9.5 8.5 - 10.5 mg/dl 05/14/2017 13:06 [facility] Calculated Calcium 9.1 8.5 - 10.5 mg/dl 05/14/2017 13:06 [facility] Glucose, Serum 86 70 - 100 mg/dl 05/14/2017 13:06 [facility] Fasting? No 05/14/2017 11:56 [facility] Blood specimen (specimen) BLOOD SPECIMEN / Unknown 05/14/2017 11:56 EST 05/14/2017 12:18 EST us Harsh Malloy NP CHEMISTRY & BLOOD GAS ORDER GABY Final Result [facility] [address] [place] [address] * HEMAGRAM AND DIFFERENTIAL (05/14/2017 11:56 EST) WBC 7.79 4.0 - 12.4 K/cmm 05/14/2017 12:28 [facility] RBC 4.67 3.86 - 5.04 M/cmm 05/14/2017 12:28 [facility] Hemoglobin 14.5 11.6 - 15.2 gm/dl 05/14/2017 12:28 [facility] HCT 41.7 34.9 - 44.4 % 05/14/2017 12:28 [facility] MCV 89 81 - 98 fl 05/14/2017 12:28 [facility] MCH 31.0 26.7 - 33.3 pg 05/14/2017 12:28 [facility] MCHC 34.8 32.1 - 35.9 gm/dl 05/14/2017 12:28 [facility] RDW-CV 14.5 <14.7 % 05/14/2017 12:28 [facility] RDW-SD 46.6 <50.4 fl 05/14/2017 12:28 [facility] PLT 302 141 - 377 K/cmm 05/14/2017 12:28 [facility] MPV 9.7 9.5 - 12.7 fl 05/14/2017 12:28 [facility] % Neutrophils 60.5 % 05/14/2017 12:28 [facility] % Lymphocytes 28.4 % 05/14/2017 12:28 [facility] % Monocytes 8.6 % 05/14/2017 12:28 [facility] % Eosinophils 1.4 % 05/14/2017 12:28 [facility] % Basophils 0.6 % 05/14/2017 12:28 [facility] % Immature Grans 0.5 % 05/14/2017 12:28 [facility] ABS Neutrophils 4.71 2.20 - 8.85 K/cmm 05/14/2017 12:28 [facility] ABS Lymphs 2.21 1.09 - 3.30 K/cmm 05/14/2017 12:28 [facility] ABS Monocytes 0.67 0.1 - 0.8 K/cmm 05/14/2017 12:28 [facility] ABS Eosinophils 0.11 0.03 - 0.61 K/cmm 05/14/2017 12:28 [facility] ABS Basophils 0.05 0.01 - 0.11 K/cmm 05/14/2017 12:28 [facility] ABS Immature Grans 0.04 0 - 0.06 K/cmm 05/14/2017 12:28 [facility] Type of Diff: Automated 05/14/2017 12:28 [facility] Blood specimen (specimen) BLOOD SPECIMEN / Unknown 05/14/2017 11:56 EST 05/14/2017 12:18 EST us Harsh Malloy FUNCTIONAL SUPPORT ANALYST PACKAGES & DNA PROBE ORDERA BLES Final Result [facility] [address] [place] [address] documented in this encounter Visit Diagnoses Diagnosis Psoriatic arthropathy ([facility])- Primary Psoriatic arthropathy Need for pneumococcal vaccination [...] may reflect changes made after this encounter. DOCUSATE SODIUM (COLACE ORAL)Indications:Ne ed for pneumococcal vaccination,Psoriat ic arthropathy ([facility]-CMS),Encounter for long-term (current) use of medications,Hammer toes of both feet,Psoriasis with arthropathy ([facility]) Take by mouth. added in this encounter Orders Immunization/Injection Count Last Ordered Date First Ordered Date PNEUMOCOCCAL CONJ VACC PCV13 IM 1 8 documented in this encounter Care Teams Experience Designer Relationship Specialty Start Date End Date Meredith Rapp MD PCP - General 08/09/10 08/04/18 documented as of this encounter
--- OUTSIDE RECORDS SUMMARY | 2024-03-22 16:15 | XMS_ITS | Encounter Summary ---
Author Organization [facility] Address [address] [place] [address] Care Team Providers Care Certified Rehabilitation Counselor Name Role Phone Meredith Rapp MD Primary Care Provider Unavailabl e Reason for Referral * PT/OT/ST (Routine) - New Request Specialty Diagnoses / Procedures Referred By Twyla love Referred To Contact Diagnoses Right hip pain Harsh Malloy NP Phone: tel: fax: Referral ID Status Reason Start Date Expiration Date Visits Requested Visits Authorized [id number] New Request Specialty Services Required 02/02/2018 1 1 Question Answer Reason for Request: right hip catching on flexion and abduction, aduction Reason for Visit * Reason Comments Joint Pain right hand right hip is a clipping sound Encounter Details Date Type Department Care Team (Late st Contact Info) Description 02/02/2018 11:30 EDT Office Visit [facility] Rheumatology & Immunology - [address] [address] Harsh Malloy NP [address] [place] [address], [address] [place] [address] Psoriasis with arthropathy ([facility]CC-CMS) (Primary [...] Many Vaccine Information Statements are available in [place] and other languages. See www.immunize.org/vis [place] [...] it yourself through the VAERS website at www.[facility].gov, or by calling . [employer] does not give medical advice. 6. How can I learn more? Ask your health care provider. He or she can give you the vaccine package insert or suggest other sources of information. ??? Call your local or state health department. ??? Contact the Centers for Disease Control and Prevention (CDC): - Call (1-505-HFW-INFO) or - Visit CDC???s website at www.cdc.gov/vaccines [...] and update record yes * Harsh Malloy, ILEANA - 02/02/2018 1130 EDT Patient ID: Nina [...] 02/02/2018 documented in this encounter Care Teams Certified Rehabilitation Counselor Relationship Specialty Start Date End Date Meredith Rapp MD PCP - General 08/09/10 08/04/18 documented as of this encounter
--- OUTSIDE RECORDS SUMMARY | 2024-03-22 16:15 | XMS_ITS | Encounter Summary ---
Author Organization [facility] Address [address] [place] [address] Care Team Providers Care Crate Liner Name Role Phone Meredith Rapp MD Primary Care Provider Unavailabl e Reason for Visit * Reason Onset Date Comments Medications Refill 02/19/2016 Encounter Details Date Type Department Care Team (Late st Contact Info) Description 02/19/2016 Refill [facility] Rheumatology & Immunology - [facility] [address] [place] [address] Libertad Shelley RN Medications Refill Social History [...] 11/06/2015 10:23 EDT documented in this encounter Ordered Prescriptions Prescription Sig Dispense Quantity Refills Last Filled Start Date End Date Etanercept (ENBREL SURECLICK) 50 mg/mL (0.98 mL) [...] documented as of this encounter Care Teams Crate Liner Relationship Specialty Start Date End Date Meredith Rapp MD PCP - General 08/09/10 08/04/18 documented as of this encounter
--- OUTSIDE RECORDS SUMMARY | 2024-03-22 16:15 | XMS_ITS | Encounter Summary ---
Author Organization [facility] Address [address] [place] [address] Care Team Providers Care Concrete Pouring Supervisor Name Role Phone Meredith Rapp MD Primary Care Provider Unavailabl e Reason for Referral * Medication Prior Authorization (Routine) - Closed Specialty Diagnoses / Procedures Referred By Twyla love Referred To Contact Diagnoses Psoriatic arthropathy ([facility]) Etelvina Hernandez MD Phone: tel: fax: Referral ID Status Reason Start Date Expiration Date Visits Requested Visits Authorized [id number] Closed Medication Prior Authorization 05/13/2017 1 1 Question Answer Medication to be Prior Authorized: Enbrel 50 mg pen once weekly Comments The purpose of this consult request is to inform the scheduling staff that a medication needs to be prior-authorized before it is prescribed and/or administered. Encounter Details Date Type Department Care Team (Late st Contact Info) Description 05/13/2017 Orders Only [facility] Rheumatology & Immunology - [facility] [address] [place], [place] [id number] Nasreen Rankin RN Psoriatic arthropathy ([facility]) (Primary Dx) Social History Tobacco Use [...] shopping? Answer Date of Assessment Author No 11/12/2016 15:16 EDT documented as of this encounter Mental Status * Because of a physical, mental, or emotional condition, does this person have serious difficulty concentrating, remembering, or making decisions? Answer Entry Date Author No 11/12/2016 15:16 EDT documented in this encounter Plan of Treatment Scheduled Referrals Name Type Priority Associated Diagnoses Order Schedule AMB MEDICATION PRIOR AUTHORIZATION Outpatient Referral Routine Psoriatic arthropathy ([facility]) Ordered: 05/13/2017 documented as of this encounter Visit Diagnoses Diagnosis Psoriatic arthropathy ([facility])- Primary Psoriatic arthropathy documented in this encounter Care Teams Concrete Pouring Supervisor Relationship Specialty Start Date End Date Meredith Rapp MD PCP - General 08/09/10 08/04/18 documented as of this encounter
--- OUTSIDE RECORDS SUMMARY | 2024-03-22 16:15 | XMS_ITS | Encounter Summary ---
Author Organization [facility] Address [address] [place] [address] Care Team Providers Care Gas Analyst Name Role Phone Meredith Rapp MD Primary Care Provider Unavailabl e Reason for Visit * Reason Onset Date Comments Prior Auth, Medication 02/20/2016 Encounter Details Date Type Department Care Team (Late st Contact Info) Description 02/20/2016 Telephone [facility] Rheumatology & Immunology - [facility] [address] [place], [place] [id number] Tabatha Degroot PA-C [address] [place] [address] Prior Auth, Medication Social History Tobacco Use [...] 11/06/2015 10:23 EDT documented in this encounter Miscellaneous Notes * Telephone Encounter - Jossy Fuchs - 02/20/2016 1510 EDT Prior Authorization Approval Medication: Enbrel 50mg/mL (0.98mL) SureClick pen Approved: 02/21/2016 - 02/20/2017 Authorization Number: [id number] Pharmacy: [facility] Prior Authorization Submission Process Medication: Enbrel 50mg/mL (0.98mL) SureClick pen Insurance: [facility] of [place] Date PA Request Received: 02/19/2016 PA Submission Date: 02/21/2016 Submitted by: Jossy Álvarez documented in this encounter Plan of Treatment Not on file documented as of this encounter Visit Diagnoses Not on filedocumented in this encounter Care Teams Gas Analyst Relationship Specialty Start Date End Date Meredith Rapp MD PCP - General 08/09/10 08/04/18 documented as of this encounter
--- OUTSIDE RECORDS SUMMARY | 2024-03-22 16:15 | XMS_ITS | Encounter Summary ---
Author Organization [facility] Address [address] [place] [address] Care Team Providers Care Deicer Repairer Name Role Phone Meredith Rapp MD Primary Care Provider Unavailabl e Reason for Visit * Reason Comments Joint Pain hands, more so right hand and right knee Encounter Details Date Type Department Care Team (Late st Contact Info) Description 04/17/2016 11:00 EST Office Visit [facility] Rheumatology & Immunology - [address] [phone] Etelvina Hernandez MD [address] [place] [address], [address] [place] [address] Psoriasis with arthropathy (CMS-HCC) (HCC-CMS) [...] shopping? Answer Date of Assessment Author No 04/17/2016 10:47 EST documented as of this encounter Mental Status * Because of a physical, mental, or emotional condition, does this person have serious difficulty concentrating, remembering, or making decisions? Answer Entry Date Author No 04/17/2016 10:47 EST documented in this encounter Discharge Diagnoses [...] encounter Visit Diagnoses Diagnosis Psoriasis with arthropathy ([facility])- Primary Psoriatic arthropathy documented in this encounter Discontinued Medications Medication Sig Discontinue Reason Start Date End Da te methotrexate 2.5 mg tablet Take 6 Tabs by mouth once a week. Reorder 03/26/2016 04/17/2016 documented as of this encounter Historical Medications * This list may reflect changes made after this encounter. oxybutynin (DITROPAN) 5 mg tablet Take 1 Tablet by mouth daily. added in this encounter Care Teams Deicer Repairer Relationship Specialty Start Date End Date Meredith Rapp MD PCP - General 08/09/10 08/04/18 documented as of this encounter
--- OUTSIDE RECORDS SUMMARY | 2024-03-22 16:15 | XMS_ITS | Encounter Summary ---
Author Organization [facility] Address [address] [place] [address] Care Team Providers Care Battery Builder Name Role Phone Meredith Rapp MD Primary Care Provider Unavailabl e Reason for Visit * Reason Comments Other Encounter Details Date Type Department Care Team (Late st Contact Info) Description 02/23/2016 [facility] Rheumatology & Immunology - [facility] [address] [place] [address] Tabatha Degroot PAAltafC [address] [place], [place] [phone] Other Social History Tobacco Use Types Packs/Day [...] Refills Last Filled Start Date End Date ENBREL SURECLICK 50 mg/mL (0.98 mL) pen injector INJECT 50 MG UNDER THE SKIN ONCE A WEEK 11.76 mL 1 02/23/2016 08/08/2016 documented in this encounter Miscellaneous Notes * Telephone Encounter - Maria Esther Aguilar RN - 02/23/2016 1110 EDT Sent to [facility] in error. New rx sent to [...] documented as of this encounter Care Teams Battery Builder Relationship Specialty Start Date End Date Meredith Rapp MD PCP - General 08/09/10 08/04/18 documented as of this encounter
--- OUTSIDE RECORDS SUMMARY | 2024-03-22 16:15 | XMS_ITS | Encounter Summary ---
Author Organization [facility] Address [address] [place] [address] Care Team Providers Care Pizza Hut Team Member Name Role Phone Meredith Rapp MD Primary Care Provider Unavailabl e Reason for Visit * Reason Comments Other Encounter Details Date Type Department Care Team (Late st Contact Info) Description 10/18/2016 [facility] Rheumatology & Immunology - [facility] [address] [place] [address] Etelvina Hernandez MD [address] [place] [address], [address] [place] [address] Other Social History Tobacco Use [...] 04/17/2016 10:47 EST documented in this encounter Ordered Prescriptions Prescription Sig Dispense Quantity Refills Last Filled Start Date End Date methotrexate 2.5 mg tablet TAKE 7 TABLETS ONCE A WEEK 91 Tab 1 10/18/2016 7 documented in this encounter Plan of Treatment Not on file documented as of this encounter Visit Diagnoses Not on filedocumented in this encounter Discontinued Medications Medication Sig Discontinue Reason Start Date End Da te methotrexate 2.5 mg tablet Take 7 Tabs by mouth once a week. Reorder 04/17/2016 10/18/2016 documented as of this encounter Care Teams [employer] Team Member Relationship Specialty Start Date End Date Meredith Rapp MD PCP - General 08/09/10 08/04/18 documented as of this encounter
--- OUTSIDE RECORDS SUMMARY | 2024-03-22 16:15 | XMS_ITS | Encounter Summary ---
Author Organization [facility] Address [address] [place] [address] Care Team Providers Care Weather Strip Mechanic Name Role Phone Meredith Rapp MD Primary Care Provider Unavailabl e Reason for Visit * Reason Onset Date Comments Medications Refill 04/01/2016 Encounter Details Date Type Department Care Team (Late st Contact Info) Description 04/01/2016 Refill [facility] Dermatology 5th [address] [address] Rancho Mayberry MD [address] [place] [address] Medications Refill Social History Tobacco [...] cause documented in this encounter Care Teams Weather Strip Mechanic Relationship Specialty Start Date End Date Meredith Rapp MD PCP - General 08/09/10 08/04/18 documented as of this encounter
--- OUTSIDE RECORDS SUMMARY | 2024-03-22 16:15 | XMS_ITS | Encounter Summary ---
Author Organization [facility] Address [address] [place] [address] Care Team Providers Care Emergency Detail Driver Name Role Phone Meredith Rapp MD Primary Care Provider Unavailabl e Reason for Visit * Reason Comments Follow-up routine follow-up, d oing well since last visit Encounter Details Date Type Department Care Team (Latest Contact Info) Description 11/06/2015 10:00 EDT Office Visit [facility] Rheumatology & Immunology - [facility] [address] [place], [place] [address] Tabatha Degroot, PA-C [address] [place], [place] [phone] Psoriasis with arthropathy (CMS-HCC) (HCC-CMS) (Primary Dx); [...] 11/06/2015 10:23 EDT documented in this encounter Discharge Diagnoses Diagnosis L40.50 Arthropathic psoriasis, unspecified-L40.50[ICD-10-CM] Z79.899 Other vacuum forming machine operator (current) drug therapy-Z79.899[ICD-10-CM] documented in this encounter [...] encounter Visit Diagnoses Diagnosis Psoriasis with arthropathy ([facility])- Primary Psoriatic arthropathy Encounter for long-term (current) use of medications Encounter for long-term (current) use of other medications documented in this encounter Discontinued Medications Medication Sig Discontinue Reason Start Date End Da te methotrexate 2.5 mg tablet Take 6 Tabs by mouth once a week. Reorder 07/24/2015 11/06/2015 documented as of this encounter Care Teams Emergency Detail Driver Relationship Specialty Start Date End Date Meredith Rapp MD PCP - General 08/09/10 08/04/18 documented as of this encounter
--- OUTSIDE RECORDS SUMMARY | 2024-03-22 16:15 | XMS_ITS | Encounter Summary ---
Author Organization [facility] Address [address] [place] [address] Care Team Providers Care Auctioneer Tobacco Name Role Phone Meredith Rapp MD Primary Care Provider Unavailabl e Reason for Visit * Reason Onset Date Comments Results 05/06/2017 Encounter Details Date Type Department Care Team (Late st Contact Info) Description 05/06/2017 Telephone [facility] Rheumatology & Immunology - [address] [phone] Etelvina Hernandez MD [address] [place] [address], [address] [place] [address] Results Social History Tobacco Use [...] 11/12/2016 15:16 EDT documented in this encounter Miscellaneous Notes [...] on filedocumented in this encounter Care Teams Auctioneer Tobacco Relationship Specialty Start Date End Date Meredith Rapp MD PCP - General 08/09/10 08/04/18 documented as of this encounter
--- OUTSIDE RECORDS SUMMARY | 2024-03-22 16:15 | XMS_ITS | Encounter Summary ---
Author Organization [facility] Address [address] [place] [address] Care Team Providers Care Facility Designer Name Role Phone Meredith Rapp MD Primary Care Provider Unavailabl e Encounter Details Date Type Department Care Team (Late st Contact Info) Description 11/07/2017 Results Only [facility] [phone] An Crespo, [address] [address] Social History Tobacco Use Types Packs/Day Years [...] when reading/interpreti ng unformatted reports. Name: ? KORINA REILLY Rey ? Accession #: ? [id number] ? : ? 1970 (Age: 47) ??F ?Collect Date: ? 11/07/2017 ? Location: ? [facility] ? Receive Date: ? 11/11/2017 ? Provider: [facility] Copy to: ? Final Report SPECIMEN ADEQUACY [...] types 16,18,31,33,35, 39,45,51,52,56,58, 59,66, and 68 by research support specialist mediated amplification. Comments Document reviewed and electronically signed by: ? System Interface ? Report date: 11/24/2017 By the signature above, the attending physician certifies that he/she has personally conducted a gross and/or microscopic examination of the described specimens and rendered or confirmed the above diagnosis. End of Report [facility] 11/07/2017 11/11/2017 us An Crespo [facility]- PATHOLOGY ORDERABLES Fin al Result [facility] [address] [place] [address] documented in this encounter Visit Diagnoses Not on filedocumented in this encounter Care Teams Facility Designer Relationship Specialty Start Date End Date Meredith Rapp MD PCP - General 08/09/10 08/04/18 documented as of this encounter
--- OUTSIDE RECORDS SUMMARY | 2024-03-22 16:15 | XMS_ITS | Encounter Summary ---
Author Organization [facility] Address [address] [place] [address] Care Team Providers Care Search Manager Name Role Phone Meredith Rapp MD Primary Care Provider Unavailabl e Reason for Visit * Reason Onset Date Comments Medication Questions 05/20/2017 Humira Encounter Details Date Type Department Care Team ([facility] Contact Info) Description 05/20/2017 Telephone [facility] Rheumatology & Immunology - [facility] [address] [place], [place] [phone] Harsh Malloy, ELBERT [address] [facility] [address] [place] [address] Medication Questions (Humira) Social History [...] 05/14/2017 10:58 EST documented in this encounter Miscellaneous Notes * Telephone Encounter - Nasreen Rankin, RN - 05/21/2017 0834 EST Clarified with [...] on filedocumented in this encounter Care Teams Search Manager Relationship Specialty Start Date End Date Meredith Rapp MD PCP - General 08/09/10 08/04/18 documented as of this encounter
--- OUTSIDE RECORDS SUMMARY | 2024-03-22 16:15 | XMS_ITS | Encounter Summary ---
Author Organization [facility] Address [address] [place] [address] Care Team Providers Care Automotive Sales Specialist Name Role Phone Meredith Rapp MD Primary Care Provider Unavailabl e Reason for Visit * Reason Onset Date Comments Medications Refill 04/02/2016 Encounter Details Date Type Department Care Team (Late st Contact Info) Description 04/02/2016 Refill [facility] Rheumatology & Immunology - [address] [address] Etelvina Hernandez MD [address] [place] [address], [address] [place] [address] Medications Refill Social History Tobacco [...] Refills Last Filled Start Date End Date naproxen (NAPROSYN) 500 mg tablet Take 1 Tab by mouth 2 times daily with breakfast and dinner. 180 Tab 3 04/03/2016 8 fluocinonide (LIDEX) 0.05 % ointment Apply daily to rash if needed 1 Tube 3 04/03/2016 8 documented in this encounter Miscellaneous Notes * Telephone Encounter - Etelvina Hernandez MD - 04/03/2016 1429 EST Both Rx signed * Telephone Encounter - Maria Esther Aguilar RN - 04/02/2016 0882 ESTFrom: Nina Boothe To: Etelvina Hernandez MD Sent: 04/02/2016 4:57 EST Subject: Medication Renewal Request Original authorizing provider: MD Nina Turner would like a refill of the following medications: naproxen (NAPROSYN) 500 mg tablet [Etelvina Hernandez MD] Preferred pharmacy: [facility] - [address] Comment: The rash is back on [...] documented as of this encounter Care Teams Automotive Sales Specialist Relationship Specialty Start Date End Date Meredith Rapp MD PCP - General 08/09/10 08/04/18 documented as of this encounter
--- OUTSIDE RECORDS SUMMARY | 2024-03-22 16:15 | XMS_ITS | Encounter Summary ---
Author Organization [facility] Address [address] [place] [address] Care Team Providers Care Cable Engineer Name Role Phone Meredith Rapp MD Primary Care Provider Unavailabl e Reason for Visit * Reason Comments Hand Pain has been off Enbrel x two weeks due to cold virus Encounter Details Date Type Department Care Team (Late st Contact Info) Description 04/18/2015 10:[address] 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 Answer Date of Assessment Author No 04/18/2015 10:05 EST documented as of this encounter Mental Status * Because of a physical, mental, or emotional condition, does this person have serious difficulty concentrating, remembering, or making decisions? Answer Entry Date Author No 04/18/2015 10:05 EST documented in this encounter Discharge Diagnoses Diagnosis J31.0 Chronic rhinitis-J31.0[ICD-10-CM] T48.5X1A Poisoning by other wqdf-[id number]-smrj drugs, accidental (unintentional), initial encounter-T48.5X1A[ICD-10-CM] L40.50 Arthropathic [...] entire body? 0 f. Bend down to berry picker clothing from the floor? 0 g. 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 Reorder 04/18/2014 04/18/2015 documented as of this encounter Historical Medications * This list may reflect changes made after this encounter. lisinopril (PRINIVIL, ZESTRIL) 10 mg tablet Take 1 Tablet by mouth daily. added in this encounter Care Teams Cable Engineer Relationship Specialty Start Date End Date Meredith Rapp MD PCP - General 08/09/10 08/04/18 documented as of this encounter
--- OUTSIDE RECORDS SUMMARY | 2024-03-22 16:15 | XMS_ITS | Encounter Summary ---
Author Organization [facility] Address [address] [place] [address] Care Team Providers Care Elementary Assistant Principal Name Role Phone Meredith Rapp MD Primary Care Provider Unavailabl e Reason for Visit * Reason Onset Date Comments Medications Refill 09/06/2016 Encounter Details Date Type Department Care Team (Late st Contact Info) Description 09/06/2016 Refill [facility] Rheumatology & Immunology - [address] [phone] Etelvina Hernandez MD [address] [place] [address], [address] [place] [address] Medications Refill Social History Tobacco [...] pen injector [Etelvina Hernandez MD] Preferred pharmacy: [facility] [address] Comment: [employer] let me know that [...] documented as of this encounter Care Teams Elementary Assistant Principal Relationship Specialty Start Date End Date Meredith Rapp MD PCP - General 08/09/10 08/04/18 documented as of this encounter
--- OUTSIDE RECORDS SUMMARY | 2024-03-22 16:15 | XMS_ITS | Encounter Summary ---
Author Organization [facility] Address [address] [place] [address] Care Team Providers Care Container Finishing Inspector Name Role Phone Meredith Rapp MD Primary Care Provider Unavailabl e Reason for Visit * Reason Onset Date Comments Medications Refill 05/06/2017 Encounter Details Date Type Department Care Team (Late st Contact Info) Description 05/06/2017 Refill [facility] Rheumatology & Immunology - [address] [phone] Etelvina Hernandez MD [address] [place] [address], [address] [place] [address] Medications Refill Social History Tobacco [...] 11/12/2016 15:16 EDT documented in this encounter Ordered Prescriptions Prescription Sig Dispense Quantity Refills Last Filled Start Date End Date fluocinonide (LIDEX) 0.05 % ointment Apply daily [...] [Etelvina Hernandez MD] Preferred pharmacy: Other - [facility] Comment: Due to my recent insurance change, I am now required to use [facility] online. Medication renewals requested in this [...] documented as of this encounter Care Teams Container Finishing Inspector Relationship Specialty Start Date End Date Meredith Rapp MD PCP - General 08/09/10 08/04/18 documented as of this encounter
--- OUTSIDE RECORDS SUMMARY | 2024-03-22 16:15 | XMS_ITS | Encounter Summary ---
Author Organization [facility] Address [address] [place] [address] Care Team Providers Care Automotive Professional Name Role Phone Meredith Rapp MD Primary Care Provider Unavailabl e Reason for Visit * Reason Comments Other Encounter Details Date Type Department Care Team (Late st Contact Info) Description 03/26/2016 [facility] Rheumatology & Immunology - [facility] [address] [place] [address] Tabatha Degroot PAAltafC [address] [place], [place] [phone] Other Social History Tobacco Use Types Packs/Day [...] as of this encounter Care Teams Automotive Professional Relationship Specialty Start Date End Date Meredith Rapp MD PCP - General 08/09/10 08/04/18 documented as of this encounter
--- OUTSIDE RECORDS SUMMARY | 2024-03-22 16:15 | XMS_ITS | Encounter Summary ---
Author Organization [facility] Address [address] [place] [address] Care Team Providers Care Branch Operations Coordinator Name Role Phone Meredith Rapp MD Primary Care Provider Unavailabl e Reason for Visit * Reason Comments Follow-up has been doing well on the Humira Encounter Details Date Type Department Care Team (Late st Contact Info) Description 08/06/2017 11:30 EDT Office Visit [facility] Rheumatology & Immunology - [address] [address] Harsh Malloy, AUTO SERVICE DISPATCHER [address] [place] [address], [address] [place] [address] Psoriasis with arthropathy (HCC-CMS) (Primary [...] - documented in this encounter Functional Status * [...] 08/06/2017 11:35 EDT documented in this encounter Patient Instructions [...] in clinic on 05/14/2017 and was MICHAEL ul for humira from enbrel. Changes since last [...] Problem List Diagnosis ??? 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 Encounter for long-term (current) use of [...] folic acid 1mg po daily. 2. Encounter watermaster meds- up to date with labs. Up to date on pneumonia vaccines Encounter Diagnoses Name Primary? 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 Encounter for long-term (current) use of medications PLAN: 1. Continue current meds. 2. Given new external lab orders 3. Can use ice or topical hydrocortisone or benadryl for injection site reactions. 4. F/u 6 months 1. 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 Jl Gray MD. 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 Patient Stopped Taking 08/06/2017 Salicylic Acid 6-6 % KtSG Topically once daily to affected areas Patient Stopped Taking 10/07/2011 08/06/2017 documented as of this encounter Care Teams Branch Operations Coordinator Relationship Specialty Start Date End Date Meredith Rapp MD PCP - General 08/09/10 08/04/18 documented as of this encounter
--- OUTSIDE RECORDS SUMMARY | 2024-03-22 16:15 | XMS_ITS | Encounter Summary ---
Author Organization [facility] Address [address] [place] [address] Care Team Providers Care Machine Sorter Name Role Phone Meredith Rapp MD Primary Care Provider Unavailabl e Reason for Visit * Reason Comments Medication Management doing well Encounter Details Date Type Department Care Team (Latest Contact Info) Description 10/21/2014 13:45 EDT Office Visit [facility] Rheumatology & Immunology - [facility] [address] [place] [address] Tabatha Degroot PA-C [address] [place], [place] [phone] Psoriasis with arthropathy (CMS-HCC) (HCC-CMS) (Primary Dx); [...] shopping? Answer Date of Assessment Author No 10/21/2014 13:50 EDT documented as of this encounter Mental Status * Because of a physical, mental, or emotional condition, does this person have serious difficulty concentrating, remembering, or making decisions? Answer Entry Date Author No 10/21/2014 13:50 EDT documented in this encounter Discharge Diagnoses Diagnosis 696.0 PSORIATIC ARTHROPATHY[ICD-9-CM] V58.69 AFTERCARE INTENSIVE CARE MEDICINE SPECIALIST USE MEDICATN[ICD-9-CM] documented in this encounter Patient [...] Good control on current regimen. Encounter for behavioral scientist use of medication. Labs up to date. [...] entire body? 0 f. Bend down to picker operator clothing from the floor? 0 g. 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 montelukast (SINGULAIR) 10 mg tablet Take 1 Tablet by mouth daily. added in this encounter Care Teams Machine Sorter Relationship Specialty Start Date End Date Meredith Rapp MD PCP - General 08/09/10 08/04/18 documented as of this encounter
--- OUTSIDE RECORDS SUMMARY | 2024-03-22 16:15 | XMS_ITS | Encounter Summary ---
Author Organization [facility] Address [address] [place] [address] Care Team Providers Care Instrument Calibrator Name Role Phone Meredith Rapp MD Primary Care Provider Unavailabl e Reason for Visit * Reason Onset Date Comments Medications Refill 03/22/2015 Encounter Details Date Type Department Care Team (Late st Contact Info) Description 03/22/2015 Refill [facility] Rheumatology & Immunology - [facility] [address] [place] [address] China Penn RN Medications Refill Social History [...] 10/21/2014 13:50 EDT documented in this encounter Ordered Prescriptions [...] documented as of this encounter Care Teams Instrument Calibrator Relationship Specialty Start Date End Date Meredith Rapp MD PCP - General 08/09/10 08/04/18 documented as of this encounter
--- OUTSIDE RECORDS SUMMARY | 2024-03-22 16:15 | XMS_ITS | Encounter Summary ---
Author Organization [facility] Address [address] [place] [address] Care Team Providers Care Batch Blender Name Role Phone Meredith Rapp MD Primary Care Provider Unavailabl e Encounter Details Date Type Department Care Team (Late st Contact Info) Description 02/09/2015 Documentation Visit [facility] Rheumatology & Immunology - [facility] [address] [place] [address] Lilo Solis [address] [address] Social History Tobacco Use Types Packs/Day Years [...] 10/21/2014 13:50 EDT documented in this encounter Progress Notes * Lilo Solis, [facility] 02/09/2015 1601 EDT Prior Authorization Approval for Rheumatology Medication: Enbrel SureClick 50mg/0.98mL Approved through: 02/09/2016 Authorization Number: [id number] Insurance: [employer] (BS [facility]) Pharmacy: [facility] ([facility] Copay Assistance Program Information for Commercially Insured Patients only: Brand Generic Online (Encourage patients to enroll online) Phone Actemra Tocilizumab https://Deckerton/actemra_register 8-499-XILQDLB ( ) Cimzia Certolizumab https://WeGather.plista/signup 0-407-207-CARE ( ) Enbrel Etanercept https://www.Deolan/support/financial-assistance/ 6-853-4LZDKTB ( ) Forteo Teriparatide http://www.ATRP SolutionseoAvokia/tthdeb-yd-pwo-card.aspx Humira Adalimumab https://www.humira.plista/my-humira/sign-up .4HUMIRA ( ) Kineret Anakinra http://www.kineretrx.com/ *Kineret is only available through [facility] [phone] Orencia Abatacept https://www.activatethecard.com/orencia/# 4-425-INUKIIM ( ) Otezla Apremilast http://www.otezla.com/pso/copay 5-501-4ZYNAMP ( ) Remicade Infliximab http://www.remistart.plista/ 0-987-TZONIW-1 ( ) Rituxan Rituximab https://Deckerton/rituxan_register 2-300-DM-COPAY ( ) Simponi Golimumab https://Energiachiara.it.LifeGuard Games/Coupon/SimponiPortal/ 7-MY SIMPONI ( ) Stelara Ustekinumab https://Food Runner/Coupon/StelaraPortal/ 3-227-HRPKDGI ( ) Xeljanz Tofacitinib http://www.EqualEyes.plista/co-pay-card 1-789-4-XELJANZ ( ) documented in this encounter Plan of Treatment Not on file documented as of this encounter Visit Diagnoses Not on filedocumented in this encounter Care Teams Batch Blender Relationship Specialty Start Date End Date Meredith Rapp MD PCP - General 08/09/10 08/04/18 documented as of this encounter
--- OUTSIDE RECORDS SUMMARY | 2024-03-22 16:15 | XMS_ITS | Encounter Summary ---
Author Organization [facility] Address [address] [place] [address] Care Team Providers Care Carbon Capture Power Plant Engineer Name Role Phone Meredith Rapp MD Primary Care Provider Unavailabl e Encounter Details Date Type Department Care Team (Late st Contact Info) Description 11/22/2015 Orders Only [facility] Rheumatology & Immunology - [facility] [address] [place] [address] Maria Esther Aguilar, IMAN [address] [place] [address] Encounter for long-term (current) use of medications [...] 11/06/2015 10:23 EDT documented in this encounter Progress Notes * Maria Esther Aguilar RN - 11/22/2015 1706 EDT Labs faxed. * Maria Esther Aguilar RN - 11/22/2015 1659 EDT Please fax orders to [phone]. documented in this encounter Plan of Treatment Not on file documented as of this encounter Visit Diagnoses Diagnosis Encounter for long-term (current) use of medications- Primary Encounter for long-term (current) use of other medications documented in this encounter Care Teams Carbon Capture Power Plant Engineer Relationship Specialty Start Date End Date Meredith Rapp MD PCP - General 08/09/10 08/04/18 documented as of this encounter
--- OUTSIDE RECORDS SUMMARY | 2024-03-22 16:15 | XMS_ITS | Encounter Summary ---
Author Organization [facility] Address [address] [place] [address] Care Team Providers Care Gate Guard Name Role Phone Meredith Rapp MD Primary Care Provider Unavailabl e Reason for Visit * Reason Onset Date Comments Medications Refill 05/06/2017 Encounter Details Date Type Department Care Team (Late st Contact Info) Description 05/06/2017 Refill [facility] Dermatology 5th Floor [address] [address] Cat Dodson MD [address] [place] [address] [phone] Medications Refill Social History Tobacco Use Types [...] [Cat Dodson MD] Preferred pharmacy: Other - [facility] Comment: Due to my recent insurance change, I am now required to use [facility] online. Medication renewals requested in this message routed to other providers: fluocinonide (LIDEX) 0.05 % ointment [Etelvina Hernandez MD] methotrexate 2.5 mg tablet [Etelvina Hernandez MD] folic acid (FOLVITE) 1 mg tablet [Etelvina Hernandez MD] documented in this encounter Plan of Treatment Not on file documented as of this encounter Visit Diagnoses Not on filedocumented in this encounter Care Teams Gate Guard Relationship Specialty Start Date End Date Meredith Rapp MD PCP - General 08/09/10 08/04/18 documented as of this encounter
--- OUTSIDE RECORDS SUMMARY | 2024-03-22 16:15 | XMS_ITS | Encounter Summary ---
Author Organization [facility] Address [address] [place] [address] Care Team Providers Care Weight Reduction Specialist Name Role Phone Meredith Rapp MD Primary Care Provider Unavailabl e Reason for Visit * Reason Comments Other Encounter Details Date Type Department Care Team (Late st Contact Info) Description 07/08/2016 [facility] Rheumatology & Immunology - [facility] [address] [place] [address] Etelvina Hernandez MD [address] [place] [address], [address] [place] [address] Other Social History Tobacco Use [...] documented as of this encounter Care Teams Weight Reduction Specialist Relationship Specialty Start Date End Date Meredith Rapp MD PCP - General 08/09/10 08/04/18 documented as of this encounter
--- OUTSIDE RECORDS SUMMARY | 2024-03-22 16:15 | XMS_ITS | Encounter Summary ---
Author Organization [facility] Address [address] [place] [address] Care Team Providers Care Orthopedic Cast Specialist Name Role Phone Meredith Rapp MD Primary Care Provider Unavailabl e Reason for Visit * Reason Onset Date Comments Medications Refill 01/07/2014 Encounter Details Date Type Department Care Team (Late st Contact Info) Description 01/07/2014 Refill [facility] Rheumatology & Immunology - [address] [address] Etelvina Hernandez MD [address] [facility], [address] [place] [address] Medications Refill Social History Tobacco [...] of this encounter Ordered Prescriptions Prescription Sig Dispense Quantity Refills Last Filled Start Date End Date methotrexate 2.5 mg tablet Take 5 Tabs by mouth once a week. 60 Tab 1 01/10/2014 04/18/2014 documented in this encounter Miscellaneous Notes * Telephone Encounter - Talisha Loja RN - 01/10/2014 0847 EDTFrom: Nina Boothe To: Etelvina Hernandez MD Sent: 01/07/2014 18:20 EDT Subject: Medication Renewal Request Original authorizing provider: MD Nnia Turner would like a refill of the following medications: methotrexate 2.5 mg tablet [Etelvina Hernandez MD] Preferred pharmacy: [address] Comment: documented in this encounter Plan [...] documented as of this encounter Care Teams Orthopedic Cast Specialist Relationship Specialty Start Date End Date Meredith Rapp MD PCP - General 08/09/10 08/04/18 documented as of this encounter
--- OUTSIDE RECORDS SUMMARY | 2024-03-22 16:15 | XMS_ITS | Encounter Summary ---
Author Organization [facility] Address [address] [place] [address] Care Team Providers Care Artist Suspect Name Role Phone Meredith Rapp MD Primary Care Provider Unavailabl e Reason for Visit * Reason Onset Date Comments Prior Auth, Medication 05/13/2017 Humira Encounter Details Date Type Department Care Team (Late st Contact Info) Description 05/13/2017 Telephone [facility] Rheumatology & Immunology - [facility] [address] [place], [place] [id number] Harsh Malloy, FIREARMS SPECIALIST [address] [facility], [address] [place] [address] Prior Auth, Medication (Humira) Social [...] 11/12/2016 15:16 EDT documented in this encounter Progress Notes * Eric Meza RPH - 05/29/2017 1048 EST Left message to inform patient of Humira (adalimumab) approval. Prescription for Humira was previously sent to [facility], although she was receiving her Enbrel (etanercept) from [facility]. I requested that she call me back to discuss medication specifics along with clarificationon pharmacy preference, also instructed her to start Humira 7 days following last Enbrel injection- direct line left. Eric Meza, Pharm.D., [facility] Pharmacist Clinician - Rheumatology 05/29/2017 documented in this encounter Miscellaneous Notes * Addendum Note - Eric Meza RPH - 05/29/2017 1051 ESTAddended by: REIC MEZA on: 05/29/2017 10:51 Modules accepted: Orders * Telephone Encounter - Jossy Fuchs - 05/16/2017 1447 EST Prior Authorization Approval Medication: Humira 40mg/0.8mL pen Approved: 05/19/2017 - 05/19/2018 Authorization Number: [id number] Pharmacy: [facility] Prior Authorization Submission Process Medication: Humira 40mg/0.8mL pen Insurance: [facility] Date PA Request Received: 05/13/2017 PA Submission [...] documented as of this encounter Care Teams Artist Suspect Relationship Specialty Start Date End Date Meredith Rapp MD PCP - General 08/09/10 08/04/18 documented as of this encounter
--- OUTSIDE RECORDS SUMMARY | 2024-03-22 16:15 | XMS_ITS | Encounter Summary ---
Author Organization [facility] Address [address] [place] [address] Care Team Providers Care Mass Spec Name Role Phone Meredith Rapp MD Primary Care Provider Unavailabl e Reason for Visit * Reason Comments Other Encounter Details Date Type Department Care Team (Late st Contact Info) Description 12/25/2017 [facility] Rheumatology & Immunology - [facility] [address] [place] [address] Harsh Malloy NP [address] [facility], [address] [place] [address] Other Social History Tobacco Use [...] documented as of this encounter Care Teams Mass Spec Relationship Specialty Start Date End Date Meredith Rapp MD PCP - General 08/09/10 08/04/18 documented as of this encounter
--- OUTSIDE RECORDS SUMMARY | 2024-03-22 16:15 | XMS_ITS | Encounter Summary ---
Author Organization [facility] Address [address] [place] [address] Care Team Providers Care Radio Interference Trouble Shooter Name Role Phone Meredith Rapp MD Primary Care Provider Unavailabl e Unknown, Provider Primary Care Provider Kayleigh Ca Primary Care Provider [phone] Encounter Details Date Type Department Care Team (Late st Contact Info) Description 05/15/2017 Telephone [facility] Rheumatology & Immunology - [facility] [address] [place], [place] [phone] Harsh Malloy, ELBERT [address] [facility], [address] [place] [address] Social History Tobacco Use Types [...] on filedocumented in this encounter Care Teams Radio Interference Trouble Shooter Relationship Specialty Start Date End Date Meredith Rapp MD PCP - General 08/09/10 08/04/18 Unknown, MD Geronimo PCP - General 08/05/18 02/03/19 Kayleigh Mallory FNP [address] [place] [phone] PCP - General 02/04/19 documented as of this encounter
--- OUTSIDE RECORDS SUMMARY | 2024-03-22 16:15 | XMS_ITS | Encounter Summary ---
Author Organization [facility] Address [address] [place] [address] Care Team Providers Care End Matcher Name Role Phone Meredith Rapp MD Primary Care Provider Unavailabl e Encounter Details Date Type Department Care Team (Late st Contact Info) Description 05/14/2017 Phlebotomy Only [facility] [address] [place] [address] Parts Identifier, Outpatient Need for pneumococcal vaccination; Psoriatic arthropathy ([facility]); Encounter for long-term (current) use of medications; Hammer toes of both feet; Psoriasis with arthropathy ([facility]) ([facility]) Social History Tobacco Use Types Packs/Day Years [...] 05/14/2017 10:58 EST documented in this encounter Progress Notes * Harsh Malloy NP - 05/15/2017 0808 EST Cr. Back to normal CMP normal CBC normal documented in this encounter Plan of Treatment Not on file documented as of this encounter Procedures Procedure Name Priority Date/Time Associated Diagnosis Comments COMPLETE BLOOD COUNT AND DIFFERENTIAL Routine 05/14/2017 11:56 EST Need for pneumococcal vaccination Psoriatic arthropathy ([facility]) Encounter for long-term (current) use of medications Hammer toes of both feet Psoriasis with arthropathy ([facility]) ([facility]) COMPREHENSIVE METABOLIC PANEL (CMP) Routine 05/14/2017 11:56 EST Need for pneumococcal vaccination Psoriatic arthropathy ([facility]) Encounter for long-term (current) use of medications Hammer toes of both feet Psoriasis with arthropathy ([facility]) ([facility]) documented in this encounter Results * COMPREHENSIVE METABOLIC PANEL (CMP) (05/14/2017 11:56 EST) Potassium 4.2 3.5 - 5.0 mEq/L 05/14/2017 13:06 [facility] Sodium 141 136 - 145 mEq/L 05/14/2017 13:06 [facility] Chloride 103 96 - 110 mEq/L 05/14/2017 13:06 [facility] CO2 26 22 - 32 mEq/L 05/14/2017 13:06 [facility] Total Alkaline Phosphatase 61 38 - 126 U/L 05/14/2017 13:06 [facility] Bilirubin, Total 0.6 <1.4 mg/dl 05/14/19 18 13:06 [facility] AST 26 15 - 46 U/L 05/14/2017 13:06 [facility] ALT 36 <53 U/L 05/14/2017 13:06 [facility] Albumin 4.5 3.4 - 4.9 g/dl 05/14/2017 13:06 [facility] Total Protein 7.6 6.3 - 8.2 g/dl 05/14/2017 13:06 [facility] Creatinine 0.89 0.52 - 1.04 mg/dl 05/14/2017 13:06 [facility] GFR, Calculated 77 >60 ml/min/1.7 3m2 05/14/2017 13:06 [facility] Comment: eGFR calculated using CKD-EPI equation for non Americans. Multiply eGFR by 1.16 for Americans. BUN 18 10 - 26 mg/dl 05/14/2017 13:06 [facility] Calcium 9.5 8.5 - 10.5 mg/dl 05/14/2017 13:06 [facility] Calculated Calcium 9.1 8.5 - 10.5 mg/dl 05/14/2017 13:06 [facility] Glucose, Serum 86 70 - 100 mg/dl 05/14/2017 13:06 [facility] Fasting? No 05/14/2017 11:56 [facility] Blood specimen (specimen) BLOOD SPECIMEN / Unknown 05/14/2017 11:56 EST 05/14/2017 12:18 EST us Harsh Malloy NP CHEMISTRY & BLOOD GAS ORDER GABY Final Result [facility] [address] [place] [address] * HEMAGRAM AND DIFFERENTIAL (05/14/2017 11:56 EST) WBC 7.79 4.0 - 12.4 K/cmm 05/14/2017 12:28 [facility] RBC 4.67 3.86 - 5.04 M/cmm 05/14/2017 12:28 [facility] Hemoglobin 14.5 11.6 - 15.2 gm/dl 05/14/2017 12:28 [facility] HCT 41.7 34.9 - 44.4 % 05/14/2017 12:28 [facility] MCV 89 81 - 98 fl 05/14/2017 12:28 [facility] MCH 31.0 26.7 - 33.3 pg 05/14/2017 12:28 [facility] MCHC 34.8 32.1 - 35.9 gm/dl 05/14/2017 12:28 [facility] RDW-CV 14.5 <14.7 % 05/14/2017 12:28 [facility] RDW-SD 46.6 <50.4 fl 05/14/2017 12:28 [facility] PLT 302 141 - 377 K/cm 05/14/2017 12:28 [facility] MPV 9.7 9.5 - 12.7 fl 05/14/2017 12:28 [facility] % Neutrophils 60.5 % 05/14/2017 12:28 [facility] % Lymphocytes 28.4 % 05/14/2017 12:28 [facility] % Monocytes 8.6 % 05/14/2017 12:28 [facility] % Eosinophils 1.4 % 05/14/2017 12:28 [facility] % Basophils 0.6 % 05/14/2017 12:28 [facility] % Immature Grans 0.5 % 05/14/2017 12:28 [facility] ABS Neutrophils 4.71 2.20 - 8.85 K/cmm 05/14/2017 12:28 [facility] ABS Lymphs 2.21 1.09 - 3.30 K/cmm 05/14/2017 12:28 [facility] ABS Monocytes 0.67 0.1 - 0.8 K/cmm 05/14/2017 12:28 [facility] ABS Eosinophils 0.11 0.03 - 0.61 K/cmm 05/14/2017 12:28 [facility] ABS Basophils 0.05 0.01 - 0.11 K/cmm 05/14/2017 12:28 [facility] ABS Immature Grans 0.04 0 - 0.06 K/cmm 05/14/2017 12:28 [facility] Type of Diff: Automated 05/14/2017 12:28 [facility] Blood specimen (specimen) BLOOD SPECIMEN / Unknown 05/14/2017 11:56 EST 05/14/2017 12:18 EST us Harsh Malloy ADVOCACY DIRECTOR PACKAGES & DNA PROBE ORDERA BLES Final Result [facility] [address] [place] [address] documented in this encounter Visit Diagnoses Diagnosis Need for pneumococcal vaccination Need for prophylactic vaccination against streptococcus pneumoniae (pneumococcus) Psoriatic arthropathy (HCC-CMS) Psoriatic arthropathy Encounter for long-term (current) use of medications Encounter for long-term (current) use of other medications Hammer toes of both feet Psoriasis with arthropathy (HCC-CMS) Psoriatic arthropathy documented in this encounter Care Teams End Matcher Relationship Specialty Start Date End Date Meredith Rapp MD PCP - General 08/09/10 08/04/18 documented as of this encounter
--- OUTSIDE RECORDS SUMMARY | 2024-03-22 16:15 | XMS_ITS | Encounter Summary ---
Author Organization [facility] Address [address] [place] [address] Care Team Providers Care Statistical Methods Professor Name Role Phone Meredith Rapp MD Primary Care Provider Unavailabl e Reason for Visit * Reason Onset Date Comments Update 07/01/2016 Encounter Details Date Type Department Care Team (Late st Contact Info) Description 07/01/2016 Telephone [facility] Rheumatology & Immunology - [address] [phone] Etelvina Hernandez MD [address] [place] [address], [address] [place] [address] Update Social History Tobacco Use [...] 04/17/2016 10:47 EST documented in this encounter Miscellaneous Notes [...] on filedocumented in this encounter Care Teams Statistical Methods Professor Relationship Specialty Start Date End Date Meredith Rapp MD PCP - General 08/09/10 08/04/18 documented as of this encounter
--- OUTSIDE RECORDS SUMMARY | 2024-03-22 16:15 | XMS_ITS | Encounter Summary ---
Author Organization [facility] Address [address] [place] [address] Care Team Providers Care Sports Medicine Trainer Name Role Phone Meredith Rapp MD Primary Care Provider Unavailabl e Reason for Visit * Reason Comments Medication Management Encounter Details Date Type Department Care Team (Late st Contact Info) Description 11/12/2016 15:45 EDT Office Visit [facility] Rheumatology & Immunology - [address] [address] Etelvina Hernandez MD 111 [facility], [address] [place] [address] Psoriasis with arthropathy (CMS-HCC) (HCC-CMS) [...] 11/12/2016 15:16 EDT documented in this encounter Patient Instructions [...] Notes * Etelvina Hernandez MD - 11/12/2016 2485 EDT Division of Rheumatology and Clinical Immunology [...] ELBERT House and 6 months after with me Barriers to learning identified: No Patient verbalizes understanding and agrees with plan Yes Etelvina Hernandez MD 11/12/2016 15:21 * Jacki Watt - 11/12/2016 9564 EDT REVIEW OF SYSTEMS: Yes No Yes [...] Psoriasis with arthropathy (HCC-CMS)- Primary Psoriatic arthropathy Pain in toes of [...] as of this encounter Care Teams Sports Medicine Trainer Relationship Specialty Start Date End Date Meredith Rapp MD PCP - General 08/09/10 08/04/18 documented as of this encounter
--- OUTSIDE RECORDS SUMMARY | 2024-03-22 16:15 | XMS_ITS | Encounter Summary ---
Author Organization [facility] Address [address] [place] [address] Care Team Providers Care Broadcaster Name Role Phone Meredith Rapp MD Primary Care Provider Unavailabl e Reason for Visit * Reason Onset Date Comments Medication Questions 04/07/2014 Enbrel Encounter Details Date Type Department Care Team (Late st Contact Info) Description 04/07/2014 Telephone [facility] Rheumatology & Immunology - [address] [phone] Etelvina Hernandez MD 111 [facility], [address] [place] [address] Medication Questions (Enbrel) Social History [...] Encounter - China Penn RN - 04/07/2014 1517 EST Spoke with pt R/T response. Verbalized understanding. * Telephone Encounter - Etelvina Hernandez MD - 04/07/2014 1511 EST Agree with holding Enbrel, generally missing one dose does not cause a flare up. * Telephone Encounter - Marisol Tejeda RN - 04/07/2014 1454 EST Pt had to have chronically ingrown toenails removed with chemical agent. Had done last . This morning noticed some redness and swelling and manager functional put pt on abx. Has not picked [...] on filedocumented in this encounter Care Teams Broadcaster Relationship Specialty Start Date End Date Meredith Rapp MD PCP - General 08/09/10 08/04/18 documented as of this encounter
--- OUTSIDE RECORDS SUMMARY | 2024-03-22 16:15 | XMS_ITS | Encounter Summary ---
Author Organization [facility] Address [address] [place] [address] Care Team Providers Care Probation Counselor Name Role Phone Meredith Rapp MD Primary Care Provider Unavailabl e Reason for Visit * Reason Comments Other Encounter Details Date Type Department Care Team (Late st Contact Info) Description 04/04/2017 [facility] Rheumatology & Immunology - [facility] [address] [place] [address] Etelvina Hernandez MD [address] [place] [address], [address] [place] [address] Other Social History Tobacco Use [...] documented as of this encounter Care Teams Probation Counselor Relationship Specialty Start Date End Date Meredith Rapp MD PCP - General 08/09/10 08/04/18 documented as of this encounter
--- OUTSIDE RECORDS SUMMARY | 2024-03-22 16:15 | XMS_ITS | Encounter Summary ---
Author Organization [facility] Address [address] [place] [address] Care Team Providers Care Sql Database Administrator Name Role Phone Meredith Rapp MD Primary Care Provider Unavailabl e Encounter Details Date Type Department Care Team (Late st Contact Info) Description 07/12/2015 Orders Only [facility] Rheumatology & Immunology - [facility] [address] [place], [place] [phone] Marisol Tejeda RN Social History Tobacco Use [...] 04/18/2015 10:05 EST documented in this encounter Ordered Prescriptions [...] documented as of this encounter Care Teams Sql Database Administrator Relationship Specialty Start Date End Date Meredith Rapp MD PCP - General 08/09/10 08/04/18 documented as of this encounter
--- OUTSIDE RECORDS SUMMARY | 2024-03-22 16:15 | XMS_ITS | Encounter Summary ---
Author Organization [facility] Address [address] [place] [address] Care Team Providers Care Quilt Sewer Name Role Phone Meredith Rapp MD Primary Care Provider Unavailabl e Reason for Visit * Reason Onset Date Comments Medications Refill 07/14/2015 Encounter Details Date Type Department Care Team (Late st Contact Info) Description 07/14/2015 Refill [facility] Rheumatology & Immunology - [facility] [address] [place] [address] Marisol Tejeda RN Medications Refill Social History [...] documented as of this encounter Care Teams Quilt Sewer Relationship Specialty Start Date End Date Meredith Rapp MD PCP - General 08/09/10 08/04/18 documented as of this encounter
--- OUTSIDE RECORDS SUMMARY | 2024-03-22 16:15 | XMS_ITS | Encounter Summary ---
Author Organization [facility] Address [address] [place] [address] Care Team Providers Care Operations Recruiter Name Role Phone Meredith Rapp MD Primary [...] Info) Description 04/18/2014 11:00 EST Office Visit [facility] Rheumatology & Immunology - [address] [phone] Etelvina Hernandez MD [address] [facility], [address] 5 [place] [address] Psoriasis with arthropathy (CMS-HCC) (HCC-CMS) [...] Progress Notes * Etelvina Hernandez MD - 04/18/2014 1125 EST [...] 65.318 kg (144 lb) BMI 23.59 kg/m2 LMP 04/11/2014 MSK: Very mild swelling and tenderness [...] encounter Visit Diagnoses Diagnosis Psoriasis with arthropathy ([facility])- Primary Psoriatic arthropathy Nail bed infection Cellulitis and abscess of unspecified digit documented in this encounter Discontinued Medications Medication Sig Discontinue Reason Start Date End Da te atenolol (TENORMIN) 50 mg tabletIndications:Psori atic arthritis ([facility]),Encounter for long-term (current) use of [...] may reflect changes made after this encounter. cephALEXin (KEFLEX) 500 mg capsule Take 500 mg by mouth 4 times daily. 10/21/2014 added in this encounter Care Teams Operations Recruiter Relationship Specialty Start Date End Date Meredith Rapp MD PCP - General 08/09/10 08/04/18 documented as of this encounter
--- OUTSIDE RECORDS SUMMARY | 2024-03-22 16:15 | XMS_ITS | Encounter Summary ---
Author Organization [facility] Address [address] [place] [address] Care Team Providers Care Computer Information Systems Professor Name Role Phone Meredith Rapp MD Primary Care Provider Unavailabl e Reason for Visit * Reason Comments Other Encounter Details Date Type Department Care Team (Late st Contact Info) Description 02/12/2017 [facility] Rheumatology & Immunology - [facility] [address] [place] [address] Etelvina Hernandez MD [address] [place] [address], [address] [place] [address] Other Social History Tobacco Use [...] documented as of this encounter Care Teams Computer Information Systems Professor Relationship Specialty Start Date End Date Meredith Rapp MD PCP - General 08/09/10 08/04/18 documented as of this encounter
--- OUTSIDE RECORDS SUMMARY | 2024-03-22 16:15 | XMS_ITS | Encounter Summary ---
Author Organization [facility] Address [address] [place] [address] Care Team Providers Care Production Sound Mixer Name Role Phone Meredith Rapp MD Primary Care Provider Unavailabl e Reason for Visit * Reason Onset Date Comments Labs Only 11/25/2016 Encounter Details Date Type Department Care Team (Late st Contact Info) Description 11/25/2016 Orders Only [facility] Rheumatology & Immunology - [address] [phone] Etelvina Hernandez MD [address] [place] [address], [address] [place] [address] Juvenile psoriatic arthritis (CMS-HCC) (HCC-CMS) [...] documented in this encounter Progress Notes * Jacki Watt - 11/25/2016 0954 EDT Standing orders [facility] [id number] documented in this encounter Plan of Treatment Not on file documented as of this encounter Visit Diagnoses Diagnosis 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
--- OUTSIDE RECORDS SUMMARY | 2024-03-22 16:15 | XMS_ITS | Encounter Summary ---
Author Organization [facility] Address [address] [place] [address] Care Team Providers Care Outside Sales Inspector Name Role Phone Meredith Rapp MD Primary Care Provider Unavailabl e Reason for Visit * Reason Onset Date Comments Medications Refill 01/05/2016 Encounter Details Date Type Department Care Team (Late st Contact Info) Description 01/05/2016 Refill [facility] Rheumatology & Immunology - [address] [phone] Etelvina Hernandez MD [address] [place] [address], [address] [place] [address] Medications Refill Social History Tobacco [...] breakfast and dinner. 180 Tab 1 01/05/2016 6 documented in this encounter Miscellaneous Notes * Telephone Encounter - Talisha Loja RN - 01/05/2016 0753 EDTFrom: Nina Boothe To: Etelvina Hernandez MD Sent: 01/05/2016 5:18 EDT Subject: Medication Renewal Request Original authorizing provider: MD Nina Turner would like a refill of the following medications: naproxen (NAPROSYN) 500 mg tablet [Etelvina Hernandez MD] Preferred pharmacy: [facility] - [address] Comment: [facility]. Thank you! documented in this [...] documented as of this encounter Care Teams Outside Sales Inspector Relationship Specialty Start Date End Date Meredith Rapp MD PCP - General 08/09/10 08/04/18 documented as of this encounter
--- OUTSIDE RECORDS SUMMARY | 2024-03-22 16:15 | XMS_ITS | Encounter Summary ---
Author Organization [facility] Address [address] [place] [address] Care Team Providers Care Matcher Name Role Phone Meredith Rapp MD Primary Care Provider Unavailabl e Reason for Visit * Reason Onset Date Comments Prior Auth, Medication 01/31/2015 Encounter Details Date Type Department Care Team (Late st Contact Info) Description 01/31/2015 Telephone [facility] Rheumatology & Immunology - [facility] [address] [place], [place] [phone] Etelvina Hernandez MD [address] [place] [address], [address] [place] [address] Prior Auth, Medication Social History [...] 10/21/2014 13:50 EDT documented in this encounter Miscellaneous Notes * Telephone Encounter - China Penn, IMAN - 01/31/2015 1617 EDT Left message for pt R/T prior auth and need to contact [facility] and update them prior to their re-authorizing Enbrel. * Telephone Encounter - Juani Meek - 01/31/[address] [facility] called today: Enbrel 50 MG will not be re- authorized until patient contacts them to update her information. documented in this encounter Plan of Treatment Not on file documented as of this encounter Visit Diagnoses Not on filedocumented in this encounter Care Teams Matcher Relationship Specialty Start Date End Date Meredith Rapp MD PCP - General 08/09/10 08/04/18 documented as of this encounter
--- OUTSIDE RECORDS SUMMARY | 2024-03-22 16:15 | XMS_ITS | Encounter Summary ---
Author Organization [facility] Address [address] [place] [address] Care Team Providers Care Publications Production Supervisor Name Role Phone Meredith Rapp MD Primary Care Provider Unavailabl e Reason for Visit * Reason Onset Date Comments Labs Only 01/20/2014 standing [facility] [phone] Encounter Details Date Type Department Care Team (Late st Contact Info) Description 01/20/2014 Orders Only [facility] Rheumatology & Immunology - [address] [phone] Etelvina Hernandez MD [address] [place] [address], [address] [place] [address] Psoriasis with arthropathy ([facility]) ([facility]) (Primary Dx) Social History Tobacco Use Types [...] as of this encounter Plan of Treatment Not on file documented as of this encounter Visit Diagnoses Diagnosis Psoriasis with arthropathy ([facility])- Primary Psoriatic arthropathy documented in this encounter Care Teams Publications Production Supervisor Relationship Specialty Start Date End Date Meredith Rapp MD PCP - General 08/09/10 08/04/18 documented as of this encounter
--- OUTSIDE RECORDS SUMMARY | 2024-03-22 16:16 | XMS_ITS | Encounter Summary ---
Author Organization [facility] Address [address] [place] [address] Care Team Providers Care Cement Railroad Car Loader Name Role Phone Meredith Rapp MD Primary Care Provider Unavailabl e Reason for Visit * Reason Comments Follow-up Psoriatic Arthritis, Doing well, very minor hand pain Encounter Details Date Type Department Care Team (Late st Contact Info) Description 03/29/2011 10:00 EST Office Visit [facility] Rheumatology & Immunology - [address] [address] Cecilia Bustos, MICHAEL [address] [facility] [address] [place] [address] Psoriatic arthritis ([facility]) ([facility]); Encounter for long-term (current) use of other [...] 4th PIP Complete fists with strong symmetric data software engineer strength. Knees: No effusion, no crepitus, no [...] Visit Diagnoses Diagnosis Psoriatic arthritis ([facility]) Psoriatic arthropathy Encounter for long-term (current) use of other medications documented in this encounter Discontinued Medications Medication Sig Discontinue Reason Start Date End Da te methotrexate 2.5 mg tablet Take 7 Tabs by mouth once a week. Reorder 12/28/2010 03/29/2011 documented as of this encounter Care Teams Cement Railroad Car Loader Relationship Specialty Start Date End Date Meredith Rapp MD PCP - General 08/09/10 08/04/18 documented as of this encounter
--- OUTSIDE RECORDS SUMMARY | 2024-03-22 16:16 | XMS_ITS | Encounter Summary ---
Author Organization [facility] Address [address] [place] [address] Care Team Providers Care Property Site Manager Name Role Phone Meredith Rapp MD Primary Care Provider Unavailabl e Reason for Visit * Reason Comments Joint Pain elbow, fingers,feet Encounter Details Date Type Department Care Team (Late st Contact Info) Description 12/28/2010 10:45 EDT Office Visit [place] Rheumatology & Immunology - [address] [phone] Crispin Phillips MD [address] [place] [address], [address] [place] [address] Psoriatic arthritis ([facility] ([facility]); Encounter for long-term (current) use of other medications Social History Tobacco Use Types Packs/Day Years Used Date Smoking Tobacco: Never Alcohol Use Standard Drinks/Week Comments No 0 (1 standard drink = 0.6 oz pur e alcohol) Comments Unknown Sex and Gender Information Value Date Recorded [...] #2,#3 & L MTPs #2,#3, #4 Decreased donor center technician strength (R>L) with incomplete fist Right hand-R [...] by the PA her supervising physician, Dr. Phlilips. Attestation statement: I saw and examined the patient with the PA. I agree with the findings and plan of care documented in the PA's note. CRISPIN PHILLIPS MD documented in this encounter Plan of Treatment Not on file documented as of this encounter Visit Diagnoses Diagnosis Psoriatic arthritis ([facility]) Psoriatic arthropathy Encounter for long-term (current) use of other medications documented in this encounter Discontinued Medications Medication Sig Discontinue Reason Start Date End Da te methotrexate 2.5 mg tablet Take 5 Tabs by mouth once a week. 10/24/2010 12/28/2010 folic acid (FOLVITE) 1 mg tablet Take 1 Tab by mouth daily. Reorder 10/24/2010 12/28/2010 documented as of this encounter Care Teams Property Site Manager Relationship Specialty Start Date End Date Meredith Rapp MD PCP - General 08/09/10 08/04/18 documented as of this encounter
--- OUTSIDE RECORDS SUMMARY | 2024-03-22 16:16 | XMS_ITS | Encounter Summary ---
Author Organization [facility] Address [address] [place] [address] Care Team Providers Care Bill Cutter Name Role Phone Meredith Rapp MD Primary Care Provider Unavailabl e Reason for Visit * Reason Onset Date Comments Medications Refill 06/18/2013 Encounter Details Date Type Department Care Team (Late st Contact Info) Description 06/18/2013 Telephone [facility] Rheumatology & Immunology - [address] [address] China Penn, IMAN Medications Refill Social History [...] 06/18/2013 1524 EST Faxed over prescription to [facility] for refill on Enbrel. FUR [...] documented as of this encounter Care Teams Bill Cutter Relationship Specialty Start Date End Date Meredith Rapp MD PCP - General 08/09/10 08/04/18 documented as of this encounter
--- OUTSIDE RECORDS SUMMARY | 2024-03-22 16:16 | XMS_ITS | Encounter Summary ---
Author Organization [facility] Address [address] [place] [address] Care Team Providers Care Rail Engineer Name Role Phone Meredith Rapp MD Primary Care Provider Unavailabl e Reason for Visit * Reason Comments Other Encounter Details Date Type Department Care Team (Late st Contact Info) Description [facility] [address] [place] [address] Tabatha Degroot PAAltafC [address] [place], [place] [phone] Other Social History Tobacco Use Types Packs/Day [...] on filedocumented in this encounter Care Teams Rail Engineer Relationship Specialty Start Date End Date Meredith Rapp MD PCP - General 08/09/10 08/04/18 documented as of this encounter
--- OUTSIDE RECORDS SUMMARY | 2024-03-22 16:16 | XMS_ITS | Encounter Summary ---
Author Organization [facility] Address [address] [place] [address] Care Team Providers Care Field Care Advocate Name Role Phone Meredith Rapp MD Primary Care Provider Unavailabl e Reason for Visit * Reason Onset Date Comments Medications Refill 01/25/2013 Encounter Details Date Type Department Care Team (Late st Contact Info) Description 01/25/2013 Refill [facility] Rheumatology & Immunology - [address] [phone] Etelvina Hernandez MD [address] [place] [address], [address] [place] [address] Medications Refill Social History Tobacco [...] 1427 EDT Medication(s) Requested: enbrel Pharmacy: [facility] Last Refill Date: 07.16.12 Last Visit Date: [...] as of this encounter Care Teams Field Care Advocate Relationship Specialty Start Date End Date Meredith Rapp MD PCP - General 08/09/10 08/04/18 documented as of this encounter
--- OUTSIDE RECORDS SUMMARY | 2024-03-22 16:16 | XMS_ITS | Encounter Summary ---
Author Organization [facility] Address [address] [place] [address] Care Team Providers Care Build Engineer Name Role Phone Meredith Rapp MD Primary Care Provider Unavailabl e Reason for Visit * Reason Comments Medication Management doing well Encounter Details Date Type Department Care Team (Latest Contact Info) Description 10/12/2013 11:00 EDT Office Visit [facility] Rheumatology & Immunology - [facility] [address] [place] [address] Tabatha Degroot PA-C [address] [place], [place] [phone] Psoriasis with arthropathy (CMS-HCC) (HCC-CMS) (Primary Dx); [...] Diagnoses Diagnosis 696.0 PSORIATIC ARTHROPATHY[ICD-9-CM] V58.69 AFTERCARE EMISSIONS TESTING TECHNICIAN USE MEDICATN[ICD-9-CM] documented in this encounter Patient [...] in nature. Dermatology is addressing. 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 Labs up to date. [...] encounter Visit Diagnoses Diagnosis Psoriasis with arthropathy ([facility])- Primary Psoriatic arthropathy Rash and other nonspecific skin eruption Encounter for long-term (current) use of other medications documented in this encounter Care Teams Build Engineer Relationship Specialty Start Date End Date Meredith Rapp MD PCP - General 08/09/10 08/04/18 documented as of this encounter
--- OUTSIDE RECORDS SUMMARY | 2024-03-22 16:16 | XMS_ITS ---
Author Organization [facility] Address [address] [place] [address] Care Team Providers Care Medication Technician Name Role Phone Kayleigh Mallory Primary Care Provider [phone] Rheumatology Status:Enrolled (Active) Start date:10/22/2018 Enrollment date:10/22/2018 Current support & services provided:Clinical Management, Refill Management Linked medications:adalimumab (Active) Linked problems:Psoriasis with arthropathy ([facility]) (Active) Continued Care and Services Coordination
--- OUTSIDE RECORDS SUMMARY | 2024-03-22 16:16 | XMS_ITS | Encounter Summary ---
Author Organization [facility] Address [address] [place] [address] Care Team Providers Care Consumer Electronic Retail Specialist Name Role Phone Meredith Rapp MD Primary Care Provider Unavailabl e Reason for Visit * Reason Onset Date Comments Medication Management 10/07/2011 BEBETO FROM [employer] CALLED AND HAD A QUESTION ABOUT A THE PRESCRIPTION SALICYLIC ACID PRESCRIBED. PLEASE CALL. Encounter Details Date Type Department Care Team ([facility] Contact Info) Description 10/07/2011 Telephone [facility] Dermatology 3rd Floor [facility] [address] [place], [place] [phone] Cat Dodson MD [address] [place] [phone] Medication Management (BEBETO PISANO [employer] CALLED AND HAD A QUESTION ABOUT A [...] on filedocumented in this encounter Care Teams Consumer Electronic Retail Specialist Relationship Specialty Start Date End Date Meredith Rapp MD PCP - General 08/09/10 08/04/18 documented as of this encounter
--- OUTSIDE RECORDS SUMMARY | 2024-03-22 16:16 | XMS_ITS | Encounter Summary ---
Author Organization [facility] Address [address] [place] [address] Care Team Providers Care Locker Attendant Name Role Phone Meredith Rapp MD Primary Care Provider Unavailabl e Reason for Visit * Reason Comments Other Encounter Details Date Type Department Care Team (Late st Contact Info) Description 10/07/2012 Refill [facility] Rheumatology & Immunology - [facility] [address] [place], [place] [phone] Cecilia Bustos, PA [address] [facility] [address] [place] [address] Other Social History Tobacco Use Types Packs/Day [...] Date folic acid (FOLVITE) 1 mg tablet take [...] documented as of this encounter Care Teams Locker Attendant Relationship Specialty Start Date End Date Meredith Rapp MD PCP - General 08/09/10 08/04/18 documented as of this encounter
--- OUTSIDE RECORDS SUMMARY | 2024-03-22 16:16 | XMS_ITS | Encounter Summary ---
Author Organization [facility] Address [address] [place] [address] Care Team Providers Care Phone Representative Name Role Phone Meredith Rapp MD Primary Care Provider Unavailabl e Reason for Visit * Reason Onset Date Comments Medications Refill 10/09/2011 Encounter Details Date Type Department Care Team (Late st Contact Info) Description 10/09/2011 Refill [facility] Rheumatology & Immunology - [facility] [address] [place] [address] Talisha Loja RN Medications Refill Social History [...] documented as of this encounter Care Teams Phone Representative Relationship Specialty Start Date End Date Meredith Rapp MD PCP - General 08/09/10 08/04/18 documented as of this encounter
--- OUTSIDE RECORDS SUMMARY | 2024-03-22 16:16 | XMS_ITS | Encounter Summary ---
Author Organization [facility] Address [address] [place] [address] Care Team Providers Care 3D Animator Name Role Phone Meredith Rapp MD Primary Care Provider Unavailabl e Reason for Visit * Reason Comments Skin Exam Skin Check Encounter Details Date Type Department Care Team (Late st Contact Info) Description 10/12/2012 14:00 EDT Office Visit [facility] Dermatology 3rd Floor [address] [phone] Derek Fernando MD [address] [facility], [address] [place] [address] Psoriasis (Primary Dx) Social History [...] Refills Last Filled Start Date End Date calcipotriene (DOVONEX) 0.005 % cream Apply topically once to twice daily to affected areas. 60 g 11 10/12/2012 8 betamethasone dipropionate 0.05 % lotion Apply topically 2 times daily. Do not apply to face, armpit or groin. 1 Bottle 3 10/12/2012 8 documented in this encounter Progress Notes * Franci Hull - 10/12/2012 1354 EDT Review [...] methotrexate and Enbrel, which are managed byher Dynamometer Mechanic Dr. Hernandez. 3. For scalp psoriasis, discussed [...] the resident's/fellow's note. DEREK FERNANDO MD Dermatology [facility] documented in this encounter Miscellaneous Notes * Scanned Note-Null - MICROCHIP SPECIALIST, SCAN 2 - 10/16/2012 1445 EDT documented in this encounter Plan of Treatment Not on file documented as of this encounter Visit Diagnoses Diagnosis Psoriasis- Primary Other psoriasis documented in this encounter Care Teams 3D Animator Relationship Specialty Start Date End Date Meredith Rapp MD PCP - General 08/09/10 08/04/18 documented as of this encounter
--- OUTSIDE RECORDS SUMMARY | 2024-03-22 16:16 | XMS_ITS | Encounter Summary ---
Author Organization [facility] Address [address] [place] [address] Care Team Providers Care Train Planner Name Role Phone Meredith Rapp MD Primary Care Provider Unavailabl e Reason for Visit * Reason Comments Other Encounter Details Date Type Department Care Team (Late st Contact Info) Description 10/25/2013 Refill [facility] Rheumatology & Immunology [facility] [address] [place] [address] Tabatha Degroot PAAltafC [address] [place], [place] [phone] Other Social History Tobacco Use Types Packs/Day [...] documented as of this encounter Care Teams Train Planner Relationship Specialty Start Date End Date Meredith Rapp MD PCP - General 08/09/10 08/04/18 documented as of this encounter
--- OUTSIDE RECORDS SUMMARY | 2024-03-22 16:16 | XMS_ITS | Encounter Summary ---
Author Organization [facility] Address [address] [place] [address] Care Team Providers Care Concaving Machine Operator Name Role Phone Unknown, Provider Primary Care Provider Unava ilable Encounter Details Date Type Department Care Team ([facility] st Contact Info) Description 03/17/2003 Results Only [facility] conversion [address] [place] [address] Emily Curry, SMALL CRAFT OPERATOR [address] [place], [place] [address] Social History Tobacco Use Types Packs/Day Years Used Date Smoking Tobacco: Never Assessed Comments Unknown Sex and Gender Information Value [...] ? REILLY HUI ? Accession #: ? [id number] : ? 1970 (Age: 32) ??F ?Collect Date: ? 03/17/2003 Location: ? [facility] ? Receive Date: ? 03/21/2003 Provider: ?EMILY CURRY SMALL CRAFT OPERATOR Copy to: ? Specimen/Source: ?ThinPrep Pap Test, [...] Date: ??03/25/2003 12:45 End of Report [facility] MORGAN 03/17/2003 03/21/2003 us Emily Curry NP PATHOLOGY ORDERABLES Final Resu lt UMBERTO MORGAN [address] [place] [address] documented in this encounter Visit Diagnoses Not on filedocumented in this encounter Care Teams Concaving Machine Operator Relationship Specialty Start Date End Date Unknown, Provider, PCP - General 08/08/09 08/08/10 documented as of this encounter
--- OUTSIDE RECORDS SUMMARY | 2024-03-22 16:16 | XMS_ITS | Encounter Summary ---
Author Organization [facility] Address [address] [place] [address] Care Team Providers Care Mixed Signal Design Engineer Name Role Phone Meredith Rapp MD Primary Care Provider Unavailabl e Reason for Visit * Reason Comments Follow-up has been doing well since last visit Encounter Details Date Type Department Care Team (Latest Contact Info) Description 01/12/2013 10:00 EDT Office Visit [facility] Rheumatology & Immunology - [facility] [place] [address] [place] [address] Tabatha Degroot PAAltafC [address] [place], [place] [phone] Psoriasis with arthropathy (CMS-HCC) (HCC-CMS) (Primary Dx); [...] Notes * Tabatha Pinedo PA - 01/12/2013 0945 EDT Images from the original note were [...] improved on Enbrel. Continue same. 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 Labs up to date. [...] Diagnoses Diagnosis Psoriasis with arthropathy ([facility])- Primary Psoriatic arthropathy Encounter for long-term (current) use of other medications documented in this encounter Discontinued Medications Medication Sig Discontinue Reason Start Date End Da te methotrexate 2.5 mg tablet Take by mouth once a week. 6 Tabs once weekly Reorder 01/12/2013 documented as of this encounter Historical Medications * This list may reflect changes made after this encounter. FLUTICASONE PROPIONATE (FLUTICASONE INHL) Inhale as directed daily. cetirizine (ZYRTEC) 10 mg tablet Take 1 Tablet by mouth daily. added in this encounter Care Teams Mixed Signal Design Engineer Relationship Specialty Start Date End Date Meredith Rapp MD PCP - General 08/09/10 08/04/18 documented as of this encounter
--- OUTSIDE RECORDS SUMMARY | 2024-03-22 16:16 | XMS_ITS | Encounter Summary ---
Author Organization [facility] Address [address] [place] [address] Care Team Providers Care Board Certified Arts Therapist Name Role Phone Meredith Rapp MD Primary Care Provider Unavailabl e Reason for Visit * Reason Comments Other Encounter Details Date Type Department Care Team (Late st Contact Info) Description 07/13/2013 Refill [facility] Rheumatology & Immunology - [address] [address] Etelvina Hernandez MD [address] [place] [address], [address] [place] [address] Other Social History Tobacco Use [...] End Date naproxen (NAPROSYN) 500 mg tablet take 1 [...] naproxen (NAPROSYN) 500 mg tabletIndications:Psoriat ic arthritis ([facility]),Encounter for long-term (current) use of other medications Take 1 Tab by mouth 2 times daily as needed for Pain. Take with food first Reorder 02/19/2012 07/13/2013 documented as of this encounter Care Teams Board Certified Arts Therapist Relationship Specialty Start Date End Date Meredith Rapp MD PCP - General 08/09/10 08/04/18 documented as of this encounter
--- OUTSIDE RECORDS SUMMARY | 2024-03-22 16:16 | XMS_ITS | Encounter Summary ---
Author Organization [facility] Address [address] [place] [address] Care Team Providers Care Plodding Machine Operator Name Role Phone Meredith Rapp MD Primary Care Provider Unavailabl e Reason for Visit * Reason Comments Joint Pain Right hand is still giving her trouble on and off. Swelling, stiffness and soreness. Encounter Details Date Type Department Care Team (Late st Contact Info) Description 02/19/2012 15:30 EDT Office Visit [facility] Rheumatology & Immunology - [address] [phone] Crispin Phillips MD [address] [facility], [address] [place] [address] Psoriatic arthritis ([facility] ([facility]); Psoriasis; Encounter for long-term (current) use of [...] 11 02/19/2012 10/12/2012 naproxen (NAPROSYN) 500 mg tabletIndications: Psoriatic arthritis ([facility]),Encounte r for long-term (current) use of other medications [...] Visit Diagnoses Diagnosis Psoriatic arthritis ([facility]) Psoriatic arthropathy Psoriasis Other psoriasis Encounter for long-term (current) use of other medications documented in this encounter Discontinued Medications Medication Sig Discontinue Reason Start Date End Da te diphenhydrAMINE (BENADRYL) 25 mg capsuleIndications:Psor iatic arthritis ([facility]),Encounter for long-term (current) use of other medications Take 25 mg by mouth every 4 hours as needed. Patient Stopped Taking 10/24/2010 02/19/2012 naproxen (NAPROSYN) 500 mg tabletIndications:Psori atic arthritis ([facility]),Encounter for long-term (current) use of other medications Take 500 mg by mouth as needed. Reorder 12/28/2010 02/19/2012 methotrexate 2.5 mg tablet Take 9 Tabs by mouth once a week. Reorder 10/09/2011 02/19/2012 documented as of this encounter Historical Medications * This list may reflect changes made after this encounter. Multivitamins with Minerals Tab Take 1 Tablet by mouth daily. loratadine-pseudo ephedrine (CLARITIN-D 24-HOUR) 10-240 mg per tablet Take 1 Tablet by mouth daily as needed. Reported on 04/17/2016 added in this encounter Care Teams Plodding Machine Operator Relationship Specialty Start Date End Date Meredith Rapp MD PCP - General 08/09/10 08/04/18 documented as of this encounter
--- OUTSIDE RECORDS SUMMARY | 2024-03-22 16:16 | XMS_ITS | Encounter Summary ---
Author Organization [facility] Address [address] [place] [address] Care Team Providers Care Syrup Maker Name Role Phone Unknown, Provider Primary Care Provider Unava ilable Encounter Details Date Type Department Care Team (Late st Contact Info) Description 10/28/2006 Results Only [facility] Medicine [address] [address] Meredith Rapp MD Social History Tobacco Use Types Packs/Day Years [...] ? REILLY HUI ? Accession #: ? [id number] : ? 1970 (Age: 36) ??F ?Collect Date: ? 10/28/2006 Location: ? [facility] ? Receive Date: ? 10/31/2006 Provider: ?MEREDITH RAPP MD Copy to: ? Specimen/Source: ?ThinPrep Pap Test, Endocervix, processed on [facility] ThinPrep Imaging System, with manual evaluation Last [...] of Report [facility] 10/28/2006 10/31/2006 us Meredith Rapp MD PATHOLOGY ORDERABLES Final Resul t [facility] [address] [place] [address] documented in this encounter Visit Diagnoses Not on filedocumented in this encounter Care Teams Syrup Maker Relationship Specialty Start Date End Date Unknown, Provider, PCP - General 08/08/09 08/08/10 documented as of this encounter
--- OUTSIDE RECORDS SUMMARY | 2024-03-22 16:16 | XMS_ITS | Encounter Summary ---
Author Organization [facility] Address [address] [place] [address] Care Team Providers Care Development And Housing Director Name Role Phone Meredith Rapp MD Primary Care Provider Unavailabl e Reason for Visit * Reason Comments Psoriasis doing very well Rash Left elbow Encounter Details Date Type Department Care Team (Late st Contact Info) Description 10/12/2013 10:00 EDT Office Visit [facility] Dermatology 3rd Floor [address] [address] Leta Hugo MD [address] [place] [address], [facility] [place] [address] [place] [address] Psoriasis (Primary Dx); Dermatitis Social [...] Try to schedule your outdoor activities for hogshead wrecker or early evening. ?? Make clothing a [...] Tizo daily moisturizer with SPF ?? Elta MD daily moisturizer with SPF ?? Oil of Olay Complete Sun Protection ?? Cetaphil daily facial moisturizer ?? Neutrogena daily facial moisturizer Recommended resources for sun protective clothing and hats: ?? www.Cleverlize.Vettery ?? Www.daysoft.Vettery ?? For sensitive skin, look for sunscreens that contain: Zinc Oxide & Titanium Oxide. These areoften labeled baby or sensitive. Use clobetasol ointment at night to the rash on the elbows and Lidex (fluocinonide) during the day. documented in this encounter Ordered Prescriptions Prescription Sig Dispense Quantity Refills Last Filled Start Date End Date clobetasol (TEMOVATE) 0.05 % ointmentIndication s:Dermatitis Apply topically to affected area at bedtime Apply nightly to the rash on elbow. Do not apply to face, armpit or groin.. 30 g 2 10/12/2013 8 documented in this encounter Progress Notes * Franci Hull - 10/12/2013 1004 EDT Review [...] to person, place and time. She has Henyr type III skin. Cutaneous head, neck and [...] the resident's/fellow's note. Leta Hugo MD Dermatology [facility] documented in this encounter Plan of Treatment Not on file documented as of this encounter Visit Diagnoses Diagnosis Psoriasis- Primary Other psoriasis Dermatitis Contact dermatitis and other eczema, due to unspecified cause documented in this encounter Care Teams Development And Housing Director Relationship Specialty Start Date End Date Meredith Rapp MD PCP - General 08/09/10 08/04/18 documented as of this encounter
--- OUTSIDE RECORDS SUMMARY | 2024-03-22 16:16 | XMS_ITS | Encounter Summary ---
Author Organization [facility] Address [address] [place] [address] Care Team Providers Care Computer Instructor Name Role Phone Meredith Rapp MD Primary Care Provider Unavailabl e Reason for Visit * Reason Comments New Patient Visit Psoriasis Encounter Details Date Type Department Care Team (Late st Contact Info) Description 10/07/2011 15:00 EDT Office Visit [facility] Dermatology 3rd Floor [address] [phone] Derek Fernando MD [address] [place] [address], [address] [place] [address] Psoriatic arthritis (CMS-HCC) ([facility]); Psoriasis Social History Tobacco Use Types Packs/Day [...] Refills Last Filled Start Date End Date Salicylic Acid 6-6 % KtSG Topically once daily to affected areas 1 Bottle 11 10/07/2011 8 clobetasol (TEMOVATE) 0.05 % external solution Apply topically twice a day to scalp. Do not apply to face, armpit or groin. 50 mL 1 10/07/2011 8 documented in this encounter Progress Notes * Clarissa Glass - 10/07/2011 9135 EDT Dermatology Outpatient Visit Note Problem List: 1. Psoriasis and psoriatic arthritis SUBJECTIVE Chief Complaint Patient presents with ??? New Patient Visit Psoriasis Ms. Boothe is a 41 y.o. female who presents for new evaluation and treatment for the above stated complaint. Last Dermatology office visit: n/a History of Present Illness: This is a 41 yo woman who comes in to [facility]. She comes in with concerns about [...] on the posterior scalp. She has tried kfeivfwqfg-qax-pazyqmu medications for this which have not helped. [...] the entire procedure. DEREK FERNANDO MD Dermatology [facility] * Franci Hull - 10/07/2011 1457 EDT A complete 12 point review of systems was obtained and reviewed. All systems are negative except for: Rash, itching Franci Hull MA 14:57 10/07/2011 documented in this encounter Plan of Treatment Not on file documented as of this encounter Visit Diagnoses Diagnosis Psoriatic arthritis ([facility]) Psoriatic arthropathy Psoriasis Other psoriasis documented in this encounter Care Teams Computer Instructor Relationship Specialty Start Date End Date Meredith Rapp MD PCP - General 08/09/10 08/04/18 documented as of this encounter
--- OUTSIDE RECORDS SUMMARY | 2024-03-22 16:16 | XMS_ITS | Encounter Summary ---
Author Organization [facility] Address [address] [place] [address] Care Team Providers Care Spooler Rubber Strand Name Role Phone Meredith Rapp MD Primary Care Provider Unavailabl e Reason for Referral * Other Type (Routine/Next Available) - Closed Specialty Diagnoses / Procedures Referred By Twyla love Referred To Contact Diagnoses Psoriatic arthritis ([facility]) Other psoriasis Tabatha Degroot PA-C Phone: tel: fax: Referral ID Status Reason Start Date Expiration Date V isits Requested Visits Authorized [id number] Closed Other 07/08/2012 1 1 Question Answer [...] Info) Description 07/08/2012 9:00 EDT Office Visit [facility] Rheumatology & Immunology - [facility] [address] [place], [place] [phone] Tabatha Degroot PA-C [address] [place], [place] [phone] Psoriatic arthritis ([facility]) ([facility]) (Primary Dx); Other psoriasis; Encounter for long-term [...] documented in this encounter Progress Notes * REGRIND MILL OPERATOR, MERISSA 2 - 07/14/2012 0843 EDT * Tabatha [...] HEMAGRAM AND DIFFERENTIAL Lab Routine Psoriatic arthritis ([facility] ([facility]) Other psoriasis Encounter for long-term (current) use of other medications Expected: 07/08/2012 (Approximate), Expires: 07/08/2013 COMPREHENSIVE METABOLIC PANEL (CMP) Lab Routine Psoriatic arthritis ([facility] ([facility]) Other psoriasis Encounter for long-term (current) use of other medications Expected: 07/08/2012 (Approximate), Expires: 07/08/2013 Scheduled Referrals Name Type Priority Associated Diagnoses Order Schedule AMB MEDICATION PRIOR AUTHORIZATION Outpatient Referral Routine Psoriatic arthritis ([facility] ([facility]) Other psoriasis Ordered: 07/08/2012 documented as of this encounter Results * SED. RATE:KENAN (07/08/2012 10:18 EDT) Pathologist [facility] Sed. Rate Westergren 4 0 - 20 mm/hr [facility] Blood specimen (specimen) 07/08/2012 10:18 EDT 07/08/2012 10:36 EDT Tabatha RODRIGUEZ-C HEMATOLOGY & PF4 ORDERABLE S Final Result Performing Organization Address [facility] de Phone Number [facility] [address] [place] [address] * HEPATITIS C ANTIBODY (07/08/2012 10:18 EDT) Pathologist [facility] Hepatitis C Ab Negative [facility] Comment:Reference Range: Neg ative Blood specimen (specimen) 07/08/2012 10:18 EDT 07/08/2012 10:36 EDT Tabatha RODRIGUEZ-C CHEMISTRY & BLOOD GAS ORDE RABLES Final Result Performing Organization Address [facility] de Phone Number [facility] [address] [place] [address] * HEPATITIS B SURFACE ANTIGEN (07/08/2012 10:18 EDT) [facility] Hepatitis B Surface Ag Negative [facility] Comment:Reference Range: Neg ative Blood specimen (specimen) 07/08/2012 10:18 EDT 07/08/2012 10:36 EDT Tabatha RODRIGUEZ-C CHEMISTRY & BLOOD GAS ORDE RABLES Final Result Performing Organization Address [facility] de Phone Number [facility] [address] [place] [address] * HEPATITIS B SURFACE ANTIBODY (07/08/2012 10:18 EDT) [facility] Hepatitis B Surface Ab Negative [facility] [...] EDT Tabatha RODRIGUEZ-C CHEMISTRY & BLOOD GAS ORDE RABLES Final Result Performing Organization Address [facility] de Phone Number [facility] [address] [place] [address] * HEPATITIS B CORE ANTIBODY (07/08/2012 10:18 EDT) Hep B Core Ab Negative [employer] [facility] Comment: Reference Range: ??Negative Interpretation depends on clinical setting. Blood specimen (specimen) 07/08/2012 10:18 EDT 07/08/2012 10:36 EDT Tabatha RODRIGUEZ-C CHEMISTRY & BLOOD GAS ORDE RABLES Final Result Performing Organization Address [facility] de Phone Number [facility] [address] [place] [address] documented in this encounter Visit Diagnoses Diagnosis Psoriatic arthritis ([facility])- Primary Psoriatic arthropathy Other psoriasis Encounter for long-term (current) use of other medications documented in this encounter Care Teams Spooler Rubber Strand Relationship Specialty Start Date End Date Meredith Rapp MD PCP - General 08/09/10 08/04/18 documented as of this encounter
--- OUTSIDE RECORDS SUMMARY | 2024-03-22 16:16 | XMS_ITS | Encounter Summary ---
Author Organization [facility] Address [address] [place] [address] Care Team Providers Care Parts Clerk Plant Maintenance Name Role Phone Meredith Rapp MD Primary Care Provider Unavailabl e Reason for Visit * Reason Onset Date Comments Results 10/30/2010 Encounter Details Date Type Department Care Team (Late st Contact Info) Description 10/30/2010 Telephone [facility] Rheumatology & Immunology - [address] [phone] Etelvina Hernandez MD [address] [facility], [address] [place] [address] Results Social History Tobacco Use [...] Encounter - Etelvina Hernandez MD - 10/30/2010 9168 EDT Recent labs and CXR are normal. Message left on patient's home machine. documented in this encounter Plan of Treatment Not on file documented as of this encounter Visit Diagnoses Not on filedocumented in this encounter Care Teams Parts Clerk Plant Maintenance Relationship Specialty Start Date End Date Meredith Rapp MD PCP - General 08/09/10 08/04/18 documented as of this encounter
--- OUTSIDE RECORDS SUMMARY | 2024-03-22 16:16 | XMS_ITS | Encounter Summary ---
Author Organization [facility] Address [address] [place] [address] Care Team Providers Care Shoe Cementer Name Role Phone Meredith Rapp MD Primary Care Provider Unavailchelsie e Reason for Referral * Consult (Routine/Next Available) - Closed Specialty Diagnoses / Procedures Referred By Twyla love Referred To Contact Dermatology Diagnoses Psoriatic arthritis ([facility]) Rufina Mishra MD Phone: tel: fax: [facility] Dermatology 5th [address] [address] Phone: tel: fax: Referral ID Status Reason Start Date Expiration Date V isits Requested Visits Authorized [id number] Closed Specialty Services Required 07/30/2011 1 1 [...] Team (Late st Contact Info) Description 07/30/2011 15:15 EDT Office Visit [facility] Rheumatology & Immunology [address] [address] Crispin Phillips MD [address] [facility], [address] [place] [address] Psoriatic arthritis (CMS-HCC) (HCC-CMS) (Primary Dx); Other [...] once a week. 108 Tab 3 07/30/2011 2 calcipotriene (DOVONOX) 0.005 % cream Apply to rash on elbows and abdomen daily 1 Tube 1 07/30/2011 2 Calcipotriene 0.005 % Soln Apply to scalp daily. 1 Bottle 1 07/30/2011 2 documented in this encounter Progress Notes [...] CONSULT DERMATOLOGY Outpatient Referral Routine Psoriatic arthritis ([facility]) ([facility]) Ordered: 07/30/2011 documented as of this encounter Visit Diagnoses Diagnosis Psoriatic arthritis ([facility])- Primary Psoriatic arthropathy Other psoriasis documented in this encounter Discontinued Medications Medication Sig Discontinue Reason Start Date End Da te acetaminophen (TYLENOL) 500 mg tabletIndications:Psoriat ic arthritis ([facility]),Encounter for long-term (current) use of other medications Take 1,000 mg by mouth every 6 hours. Dose adjustment 07/30/2011 methotrexate 2.5 mg tablet Take 8 Tabs by mouth once a week. Reorder 03/29/2011 07/30/2011 documented as of this encounter Historical Medications * This list may reflect changes made after this encounter. acetaminophen (TYLENOL) 500 mg tablet Take 2 Tablets by mouth every 6 hours as needed. added in this encounter Care Teams Shoe Cementer Relationship Specialty Start Date End Date Meredith Rapp MD PCP - General 08/09/10 08/04/18 documented as of this encounter
--- OUTSIDE RECORDS SUMMARY | 2024-03-22 16:16 | XMS_ITS | Encounter Summary ---
Author Organization [facility] Address [address] [place] [address] Care Team Providers Care Flight Crew Scheduler Name Role Phone Unavailable Primary Care Provider Unavailabl e Encounter Details Date Type Department Care Team (Late st Contact Info) Description 08/01/2009 Results Only [facility] Medicine [address] [phone] Meredith Rapp MD Social History Tobacco Use [...] ? REILLY HUI ? Accession #: ? [id number] ? : ? 1970 (Age: 38) ??F [...] reviewed and electronically signed by: ? Ngoc Bui, CT(ASCP) ? Report Date: ??08/08/2009 10:17 ? End of Report ? [facility] 08/01/2009 08/02/2009 us Meredith Rapp MD PATHOLOGY ORDERABLES Final Resul t [facility] [address] [place] [address] documented in this encounter Visit Diagnoses Not on filedocumented in this encounter
--- OUTSIDE RECORDS SUMMARY | 2024-03-22 16:16 | XMS_ITS | Encounter Summary ---
Author Organization [facility] Address [address] [place] [address] Care Team Providers Care Transonic Engineer Name Role Phone Meredith Rapp MD Primary Care Provider Unavailabl e Reason for Visit * Reason Onset Date Comments Medications Refill 09/16/2013 Encounter Details Date Type Department Care Team (Late st Contact Info) Description 09/16/2013 Telephone [facility] Rheumatology & Immunology - [address] [phone] Tabatha Degroot PA-C [address] [place] [address] Medications Refill Social History Tobacco Use Types [...] Date End Date methotrexate 2.5 mg tablet take 5 tablets by mouth every week. 20 Tab 3 09/17/2013 4 documented in this encounter Miscellaneous Notes * [...] Encounter - Talisha Loja RN - 09/16/2013 3407 EDTFrom: Nina Boothe To: Tabatha Pinedo PA Sent: 09/16/2013 14:22 EDT Subject: Medication Renewal Request Original authorizing provider: MICHAEL Deras would like a refill of the following medications: methotrexate 2.5 mg tablet [MICHALE Deras] Preferred pharmacy: [email or web address] Comment: Please call in to my pharmacy- [facility] in [place], [place] Thank you- Iris documented in this encounter Plan of Treatment Not on file documented as of this encounter Visit Diagnoses Not on filedocumented in this encounter Discontinued Medications Medication Sig Discontinue Reason Start Date End Da te methotrexate 2.5 mg tablet take 5 tablets by mouth every week Reorder 07/13/2013 09/16/2013 documented as of this encounter Care Teams Transonic Engineer Relationship Specialty Start Date End Date Meredith Rapp MD PCP - General 08/09/10 08/04/18 documented as of this encounter
--- OUTSIDE RECORDS SUMMARY | 2024-03-22 16:16 | XMS_ITS | Encounter Summary ---
Author Organization [facility] Address [address] [place] [address] Care Team Providers Care Milking System Installer Name Role Phone Meredith Rapp MD Primary Care Provider Unavailabl e Reason for Visit * Reason Comments Joint Pain minimal; stiffness i n right hand Encounter Details Date Type Department Care Team (Late st Contact Info) Description 10/12/2012 10:[address] [facility] Rheumatology & Immunology - [address] [phone] Crispin Phillips MD [address] [place] [address], [address] [place] [address] Psoriasis with arthropathy (CMS-HCC) (HCC-CMS) [...] Visit Diagnoses Diagnosis Psoriasis with arthropathy ([facility] Primary Psoriatic arthropathy documented in this encounter Discontinued Medications Medication Sig Discontinue Reason Start Date End Da te methotrexate 2.5 mg tablet Take 9 Tabs by mouth once a week. Dose adjustment 02/19/2012 10/12/2012 documented as of this encounter Historical Medications * This list may reflect changes made after this encounter. methotrexate 2.5 mg tablet Take by mouth once a week. 6 Tabs once weekly 01/12/2013 added in this encounter Care Teams Milking System Installer Relationship Specialty Start Date End Date Meredith Rapp MD PCP - General 08/09/10 08/04/18 documented as of this encounter
--- OUTSIDE RECORDS SUMMARY | 2024-03-22 16:16 | XMS_ITS | Encounter Summary ---
Author Organization [facility] Address [address] [place] [address] Care Team Providers Care Physical Aerodynamicist Name Role Phone Meredith Rapp MD Primary Care Provider Unavailabl e Reason for Referral * (Routine/Next Available) - Closed Specialty Diagnoses / Procedures Referred By Twyla love Referred To Contact Diagnoses Elevated liver enzymes Procedures AST Etelvina Hernandez MD Phone: tel: fax: Referral ID Status Reason Start Date Expiration Date Visits Re quested Visits Authorized [id number] Closed 06/10/2012 1 1 * (Routine/Next Available) - Closed Specialty Diagnoses / Procedures Referred By Twyla love Referred To Contact Diagnoses Elevated liver enzymes Procedures ALT Etelvina Hernandez MD Phone: tel: fax: Referral ID Status Reason Start Date Expiration Date Visits Re quested Visits Authorized [id number] Closed 06/10/2012 1 1 Reason for Visit * Reason Onset Date Comments Results 06/10/2012 Encounter Details Date Type Department Care Team (Late st Contact Info) Description 06/10/2012 Telephone [facility] Rheumatology & Immunology - [address] [phone] Etelvina Hernandez MD [address] [facility], [address] [place] [address] Results Social History Tobacco Use Types Packs/Day [...] 06/10/2012 documented in this encounter Care Teams Physical Aerodynamicist Relationship Specialty Start Date End Date Meredith Rapp MD PCP - General 08/09/10 08/04/18 documented as of this encounter
--- OUTSIDE RECORDS SUMMARY | 2024-03-22 16:16 | XMS_ITS | Encounter Summary ---
Author Organization [facility] Address [address] [place] [address] Care Team Providers Care Interior Design Project Manager Name Role Phone Meredith Rapp MD Primary Care Provider Unavailabl e Reason for Visit * Reason Comments Medication Management doing well Encounter Details Date Type Department Care Team (Late st Contact Info) Description 04/14/2013 10:30 EST Office Visit [facility] Rheumatology & Immunology - [address] [address] Crispin Phillips MD [address] [place] [address], [address] [place] [address] Psoriasis with arthropathy (CMS-HCC) (HCC-CMS) [...] End Date methotrexate 2.5 mg tablet Take 4 Tabs [...] encounter Visit Diagnoses Diagnosis Psoriasis with arthropathy ([facility] Primary Psoriatic arthropathy documented in this encounter Discontinued Medications Medication Sig Discontinue Reason Start Date End Da te methotrexate 2.5 mg tablet Take 5 Tabs by mouth once a week. Order modification 01/12/2013 04/14/2013 documented as of this encounter Care Teams Interior Design Project Manager Relationship Specialty Start Date End Date Meredith Rapp MD PCP - General 08/09/10 08/04/18 documented as of this encounter
--- OUTSIDE RECORDS SUMMARY | 2024-03-22 16:16 | XMS_ITS | Encounter Summary ---
Author Organization [facility] Address [address] [place] [address] Care Team Providers Care Needle Punch Machine Operator Helper Name Role Phone Meredith Rapp MD Primary Care Provider Unavailabl e Reason for Visit * Reason Comments Joint Pain feet, elbows, hands, knees fills with fluid Encounter Details Date Type Department Care Team (Late st Contact Info) Description 10/24/2010 13:00 EDT Office Visit [facility] Rheumatology & Immunology - [address] [address] Etelvina Hernandez MD [address] [place] [address], [address] [place] [address] Psoriatic arthritis ([facility]) ([facility]); Encounter for long-term (current) use of other [...] HISTORY: 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 She lives with her and son, aged [...] done in 3 weeks, then on an [id number] basiswas given to the patient to do [...] Hernandez MD - Etelvina Hernandez MD - [facility] Job ID: SM Doc ID: [id number] Ext Doc ID: [id number] cc: Meredith Rapp MD documented in this encounter Plan of Treatment Not on file documented as of this encounter Procedures Procedure Name Priority Date/Time Associated Diagnosis Comments CHEST PA AND LATERAL Routine 10/24/2010 14:10 EDT Encounter for long-term (current) use of other medications Psoriatic arthritis ([facility]) ([facility]) documented in this encounter Results * CCP ANTIBODIES (10/24/2010 14:20 EDT) CCP Antibodies 0.42 <5.01 U/ml [facility] 10/24/2010 14:2 0 EDT 10/24/2010 14:41 EDT us Etelvina Hernandez MD IMMUNOLOGY AND SEROLOGY ORDER GABY Final Result [facility] [address] [place] [address] * SED. RATE:KENAN (10/24/2010 14:20 EDT) Pathologist [facility] Sed. Rate Anibalbasilioren 14 0 - 20 mm/hr [facility] Blood specimen (specimen) 10/24/2010 14:20 EDT 10/24/2010 14:41 EDT Etelvina Hernandez MD HEMATOLOGY & PF4 ORDERABLES F inal Result Performing Organization Address [facility] Co de Phone Number [facility] [address] [place] [address] * HEMAGRAM AND DIFFERENTIAL (10/24/2010 14:20 EDT) [facility] WBC 9.02 4.0 - 12.4 K/cmm [facility] [...] ABS Basophils 0.09 0.01 - 0.11 K/cmm [facility] Type of Diff: Automated [facility] Blood specimen (specimen) 10/24/2010 14:20 EDT 10/24/2010 14:41 EDT Etelvina Hernandez MD PACKAGES & DNA PROBE ORDERABL ES Final Result [facility] [address] [place] [address] * COMPREHENSIVE METABOLIC PANEL (CMP) (10/24/2010 14:20 [...] LAB Creatinine 0.80 0.7 - 1.5 mg/dl [facility] GFR, Calculated >60 ml/min/1.7 3m2 [facility] BUN 16 10 - 26 mg/dl [facility] Calcium 9.2 8.5 - 10.5 mg/dl [facility] Calculated Calcium 9.1 8.5 - 10.5 mg/dl [facility] Glucose, Serum 99 70 - 100 mg/dl [facility] Fasting? No [facility] Blood specimen (specimen) 10/24/2010 14:20 EDT 10/24/2010 14:41 EDT us Etelvina Hernandez MD CHEMISTRY & BLOOD GAS ORDERAB LES Final Result [facility] [address] [place] [address] * CHEST PA AND LATERAL (10/24/2010 14:10 [...] the findings. Etelvina Hernandez MD IMG DIAGNOSTIC IMAGING ORDERA BLES Final Result documented in this encounter Visit Diagnoses Diagnosis Psoriatic arthritis ([facility]) Psoriatic arthropathy Encounter for long-term (current) use of other medications documented in this encounter Discontinued Medications Medication Sig Discontinue Reason Start Date End Da te Naproxen Sodium (NAPRELAN CR) 500 mg TM24 Take 500 mg by mouth 2 times daily. Error 10/24/2010 10/24/2010 documented as of this encounter Historical Medications * This list may reflect changes made after this encounter. naproxen (NAPROSYN) 500 mg tabletIndications :Psoriatic arthritis (HCC-CMS),Encount er for long-term (current) use of other medications Take 500 mg by mouth as needed. 12/28/2010 2 triamcinolone (KENALOG) 0.1 % creamIndications: Psoriatic arthritis ([facility]-CMS),Encount er for long-term (current) use of other medications Apply topically 2 times daily as needed. 8 diphenhydrAMINE (BENADRYL) 25 mg capsuleIndication s:Psoriatic arthritis ([facility]-CMS),Encount er for long-term (current) use of other medications Take 25 mg by mouth every 4 hours as needed. 10/24/2010 2 acetaminophen (TYLENOL) 500 mg tabletIndications :Psoriatic arthritis ([facility]-CMS),Encount er for long-term (current) use of other medications Take 1,000 mg by mouth every 6 hours. 2 Naproxen Sodium (NAPRELAN CR) 500 mg TM24 Take 500 mg by mouth 2 times daily. 10/24/2010 1 atenolol (TENORMIN) 50 mg tabletIndications :Psoriatic arthritis ([facility]-CMS),Encount er for long-term (current) use of other medications Take 50 mg by mouth daily. 4 added in this encounter Care Teams Needle Punch Machine Operator Helper Relationship Specialty Start Date End Date Meredith Rapp MD PCP - General 08/09/10 08/04/18 documented as of this encounter
--- OUTSIDE RECORDS SUMMARY | 2024-03-22 16:16 | XMS_ITS | Encounter Summary ---
Author Organization [facility] Address [address] [place] [address] Care Team Providers Care Supervisor Meter Shop Name Role Phone Meredith Rapp MD Primary Care Provider Unavailabl e Encounter Details Date Type Department Care Team (Late st Contact Info) Description 07/08/2012 Phlebotomy Only [facility] [address] [place] [address] Gas Engine Operator, Outpatient Psoriatic arthritis ([facility]) ([facility]); Psoriatic arthropathy ([facility]); Encounter for long-term (current) use of [...] use of other medications Psoriatic arthritis (CMS-HCC) ([facility]) Other psoriasis HEPATITIS B CORE ANTIBODY (TOTAL) Routine 07/08/2012 10:18 EDT Psoriatic arthritis ([facility]) ([facility]) Other psoriasis Encounter for long-term (current) use of other medications DIFFERENTIAL Routine 07/08/2012 10:18 EDT HEPATITIS B SURFACE ANTIBODY Routine 07/08/2012 10:18 EDT Psoriatic arthritis ([facility]) ([facility]) Other psoriasis Encounter for long-term (current) use of other medications HEPATITIS B SURFACE ANTIGEN Routine 07/08/2012 10:18 EDT Psoriatic arthritis ([facility]) ([facility]) Other psoriasis Encounter for long-term (current) use of other medications SED RATE Routine 07/08/2012 10:18 EDT Psoriatic arthritis ([facility]) ([facility]) Other psoriasis COMPLETE BLOOD COUNT Routine 07/08/2012 10:18 EDT COMPLETE BLOOD COUNT AND DIFFERENTIAL Routine 07/08/2012 10:18 EDT Psoriatic arthritis ([facility]) ([facility]) COMPREHENSIVE METABOLIC PANEL (CMP) Routine 07/08/2012 10:18 EDT Psoriatic arthritis ([facility]) ([facility]) documented in this encounter Results * DIFFERENTIAL [...] Basophils 0.06 0.01 - 0.11 K/cmm [facility] Type of Diff: Automated [facility] 07/08/2012 10:1 8 EDT 07/08/2012 10:36 EDT Cecilia RODRIGUEZ HEMATOLOGY & PF4 ORDERABLES Final Result Performing Organization Address [facility] de Phone Number [facility] [address] [place] [address] * HEMAGRAM (07/08/2012 10:18 EDT) WBC 6.97 4.0 - 12.4 K/cmm [facility] RBC 4.57 3.86 - 5.04 M/cmm [facility] Hemoglobin 15.2 11.6 - 15.2 gm/dl [facility] HCT 43.9 34.9 - 44.4 % [facility] MCV 96 81 - 98 fl [facility] MCH 33.3 26.7 - 33.3 pg [facility] MCHC 34.7 32.1 - 35.9 gm/dl [facility] PLT 249 141 - 320 K/cmm [facility] RDW-CV 13.7 11.7 - 14.6 % [facility] 07/08/2012 10:1 8 EDT 07/08/2012 10:36 EDT Cecilia RODRIGUEZ HEMATOLOGY & PF4 ORDERABLES Final Result Performing Organization Address [facility] de Phone Number [facility] [address] [place] [address] * SED. RATE:WESTERGREN (07/08/2012 10:18 EDT) Sed. Rate Westergren 4 0 - 20 mm/hr [facility] Blood specimen (specimen) 07/08/2012 10:18 EDT 07/08/2012 10:36 EDT Tabatha COBIANC HEMATOLOGY & PF4 ORDERABLE S Final Result [facility] [address] [place] [address] * HEPATITIS C ANTIBODY (07/08/2012 10:18 EDT) Hepatitis C Ab Negative [facility] Comment:Reference Range: Neg ative Blood specimen (specimen) 07/08/2012 10:18 EDT 07/08/2012 10:36 EDT Tabatha COBIANC CHEMISTRY & BLOOD GAS ORDE RABLES Final Result Performing Organization Address [facility] Co de Phone Number [facility] [address] [place] [address] * HEPATITIS B SURFACE ANTIGEN (07/08/2012 10:18 EDT) Hepatitis B Surface Ag Negative [facility] Comment:Reference Range: Neg ative Blood specimen (specimen) 07/08/2012 10:18 EDT 07/08/2012 10:36 EDT Tabatha Samuel Zane COBIANC CHEMISTRY & BLOOD GAS ORDE RABLES Final Result Performing Organization Address [facility] Co de Phone Number [facility] [address] [place] [address] * HEPATITIS B SURFACE ANTIBODY (07/08/2012 10:18 [...] Tabatha Degroot PA-C CHEMISTRY & BLOOD GAS ORDE RABLES Final Result Performing Organization Address [facility]/ZIP Co de Phone Number [facility] [address] [place] [address] * HEPATITIS B CORE ANTIBODY (07/08/2012 10:18 EDT) Pathologist [facility] Hep B Core Ab Negative [facility] Comment: Reference Range: ??Negative Interpretation depends on clinical setting. Blood specimen (specimen) 07/08/2012 10:18 EDT 07/08/2012 10:36 EDT Tabatha Degroot PA-C CHEMISTRY & BLOOD GAS OR[facility] Final Result Performing Organization Address [facility] de Phone Number [facility] [address] [place] [address] * COMPREHENSIVE METABOLIC PANEL (CMP) (07/08/2012 10:18 EDT) Pathologist [facility] Potassium 4.4 3.5 - 5.0 mEq/L [facility] Sodium 141 136 - 145 mEq/L [facility] Chloride 102 96 - 110 mEq/L [facility] CO2 26 24 - 32 mEq/L [facility] Total Alkaline Phosphatase 63 38 - 126 U/L [facility] Bilirubin, Total 0.9 0.2 - 1.3 mg/dl [facility] AST 35 15 - 46 U/L [facility] ALT 51 9 - 52 U/L [facility] Albumin 4.4 3.4 - 4.9 g/dl [facility] Total Protein 6.9 6.5 - 8.3 g/dl [facility] Creatinine 0.77 0.52 - 1.04 mg/dl [facility] GFR, Calculated >60 >60 ml/min/1.7 3m2 [facility] BUN 12 10 - 26 mg/dl [facility] Calcium 9.3 8.5 - 10.5 mg/dl [facility] Calculated Calcium 9.3 8.5 - 10.5 mg/dl [facility] Glucose, Serum 84 70 - 100 mg/dl [facility] Fasting? Unknown [facility] Blood specimen (specimen) 07/08/2012 10:18 EDT 07/08/2012 10:36 EDT us Cecilia RODRIGUEZ CHEMISTRY & BLOOD GAS ORDER GABY Final Result [facility] [address] [place] [address] documented in this encounter Visit Diagnoses Diagnosis [...] 07/08/2012 documented in this encounter Care Teams Supervisor Meter Shop Relationship Specialty Start Date End Date Meredith Rapp MD PCP - General 08/09/10 08/04/18 documented as of this encounter
--- OUTSIDE RECORDS SUMMARY | 2024-03-22 16:16 | XMS_ITS | Encounter Summary ---
Author Organization [facility] Address [address] [place] [address] Care Team Providers Care Compliance Specialist Name Role Phone Meredith Rapp MD Primary Care Provider Unavailabl e Reason for Visit * Reason Onset Date Comments Labs Only 06/17/2012 Encounter Details Date Type Department Care Team (Late st Contact Info) Description 06/17/2012 Telephone [facility] Rheumatology & Immunology - [address] [phone] Etelvina Hernandez MD [address] [facility], [address] [place] [address] Labs Only Social History Tobacco [...] 06/17/2012 1305 EST New orders faxed to [facility] at [phone]. Message left for pt. Instructed her to do labs one week after stopping her methotrexate as ordered by Dr. Hernandez. * Telephone Encounter - Jacki Watt - 06/17/2012 1303 EST Sent pt a copy of labs and faxed copy to [facility] * Telephone Encounter - Gabriela Tsai - 06/17/2012 1244 EST Pt calling in follow up to 06/10 call as her understanding was that dr. Hernandez was re-ordering theselabs for re-drawn in 1 wk, but hasn't received this, will be getting drawn @ [facility], pls contact pt on her cell# documented in this encounter Plan of Treatment Not on file documented as of this encounter Visit Diagnoses Not on filedocumented in this encounter Care Teams Compliance Specialist Relationship Specialty Start Date End Date Meredith Rapp MD PCP - General 08/09/10 08/04/18 documented as of this encounter
--- OUTSIDE RECORDS SUMMARY | 2024-03-22 16:16 | XMS_ITS | Encounter Summary ---
Author Organization [facility] Address [address] [place] [address] Care Team Providers Care Whirley Operator Name Role Phone Meredith Rapp MD Primary Care Provider Unavailabl e Encounter Details Date Type Department Care Team (Late st Contact Info) Description 12/04/2012 Results Only [facility] Laboratory Services - [facility] ([address] [phone] Meredith Rapp MD Social History Tobacco Use [...] ? REILLY HUI ? Accession #: ? [id number] ? : ? 1970 (Age: 42) ??F [...] electronically signed by: ? GRACIELA CARCAMO MD [facility] ? Report ??Date: 12/15/2012 17:48 HPV with Pap Test ? Date Ordered: ? 12/15/2012 ? Status: ?? Signed Out ?Date Complete: ? 12/17/2012 ? By: ??System Interface ? Date Reported: ? 12/17/2012 ? Interpretation RESULT: Negative for HPV. No E6 or E7 mRNA is detected from HPV types 16,18,31,33,35, 39,45,51,52,56,58, 59,66, and 68 by golf caddy mediated amplification. Comments Document reviewed and electronically signed by: ? System Interface ? Report date: 12/17/2012 By the signature above, the attending physician certifies that he/she has personally conducted a gross and/or microscopic examination of the described specimens and rendered or confirmed the above diagnosis. End of Report [facility] 12/04/2012 12/07/2012 us Meredith Rapp MD PATHOLOGY ORDERABLES Final Resul t Performing Organization Address City/State/[facility] Co de Phone Number [facility] [address] [place] [address] documented in this encounter Visit Diagnoses Not on filedocumented in this encounter Care Teams Whirley Operator Relationship Specialty Start Date End Date Meredith Rapp MD PCP - General 08/09/10 08/04/18 documented as of this encounter
--- OUTSIDE RECORDS SUMMARY | 2024-03-22 16:16 | XMS_ITS | Encounter Summary ---
Author Organization [facility] Address [address] [place] [address] Care Team Providers Care Sales Training Representative Name Role Phone Meredith Rapp MD Primary Care Provider Unavailabl e Encounter Details Date Type Department Care Team (Late st Contact Info) Description 07/30/2011 Phlebotomy Only [facility] [address] [place] [address] Mold Stripper, Outpatient Psoriatic arthritis ([facility]) ([facility]); Encounter for long-term (current) use of other [...] DIFFERENTIAL Routine 07/30/2011 16:29 EDT Psoriatic arthritis ([facility]) ([facility]) Encounter for long-term (current) use of other medications ALT Routine 07/30/2011 16:29 EDT Psoriatic arthritis ([facility]) ([facility]) Encounter for long-term (current) use of other medications AST Routine 07/30/2011 16:29 EDT Psoriatic arthritis ([facility]) ([facility]) Encounter for long-term (current) use of other medications ALKALINE PHOSPHATASE Routine 07/30/2011 16:29 EDT Psoriatic arthritis ([facility]) ([facility]) Encounter for long-term (current) use of other medications CREATININE Routine 07/30/2011 16:29 EDT Psoriatic arthritis ([facility]) ([facility]) Encounter for long-term (current) use of other medications ALBUMIN Routine 07/30/2011 16:29 EDT Psoriatic arthritis ([facility]) ([facility]) Encounter for long-term (current) use of other [...] [facility] Type of Diff: Automated [facility] Blood specimen (specimen) 07/30/2011 16:29 EDT 07/30/2011 16:55 EDT Etelvina Hernandez MD PACKAGES & DNA PROBE ORDERABL ES Final Result Performing Organization Address [facility] Co de Phone Number [facility] [address] [place] [address] * CREATININE (07/30/2011 16:29 EDT) Creatinine 0.75 0.52 - 1.04 mg/dl [facility] GFR, Calculated >60 >60 ml/min/1.7 3m2 [facility] Blood specimen (specimen) 07/30/2011 16:29 EDT 07/30/2011 16:55 EDT us Etelvina Hernandez MD CHEMISTRY & BLOOD GAS ORDERAB LES Final Result Performing Organization Address [facility] Co de Phone Number [facility] [address] [place] [address] * AST (07/30/2011 16:29 EDT) AST 23 15 - 46 U/L [facility] Blood specimen (specimen) 07/30/2011 16:29 EDT 07/30/2011 16:55 EDT us Etelvina Hernandez MD CHEMISTRY & BLOOD GAS ORDERAB LES Final Result Performing Organization Address [facility] Co de Phone Number [facility] [address] [place] [address] * ALT (07/30/2011 16:29 EDT) ALT 28 9 - 52 U/L [facility] Blood specimen (specimen) 07/30/2011 16:29 EDT 07/30/2011 16:55 EDT Etelvina Hernandez MD CHEMISTRY & BLOOD GAS ORDERAB LES Final Result Performing Organization Address [facility] de Phone Number [facility] [address] [place] [address] * ALKALINE PHOSPHATASE (07/30/2011 16:29 EDT) Total Alkaline Phosphatase 78 38 - 126 U/L [facility] Blood specimen (specimen) 07/30/2011 16:29 EDT 07/30/2011 16:55 EDT us Etelvina Hernandez MD CHEMISTRY & BLOOD GAS ORDERAB LES Final Result Performing Organization Address [facility] Phone Number [facility] [address] [place] [address] * ALBUMIN (07/30/2011 16:29 EDT) Albumin 4.3 3.4 - 4.9 g/dl [facility] Blood specimen (specimen) 07/30/2011 16:29 EDT 07/30/2011 16:55 EDT Etelvina Hernandez MD CHEMISTRY & BLOOD GAS ORDERAB LES Final Result Performing Organization Address [facility] de Phone Number [facility] [address] [place] [phone] documented in this encounter Visit Diagnoses Diagnosis Psoriatic arthritis ([facility]) Psoriatic arthropathy Encounter for long-term (current) use of other medications documented in this encounter Care Teams Sales Training Representative Relationship Specialty Start Date End Date Meredith Rapp MD PCP - General 08/09/10 08/04/18 documented as of this encounter
--- OUTSIDE RECORDS SUMMARY | 2024-03-22 16:16 | XMS_ITS | Encounter Summary ---
Author Organization [facility] Address [address] [place] [address] Care Team Providers Care Line Haul Truck Driver Name Role Phone Meredith Rapp MD Primary Care Provider Unavailabl e Reason for Visit * Reason Onset Date Comments Prior Auth, Medication 07/13/2012 Enbrel Prior Auth, Medication 07/13/2012 status Encounter Details Date Type Department Care Team (Late st Contact Info) Description 07/13/2012 Telephone [facility] Rheumatology & Immunology - [address] [address] China Penn RN Prior Auth, Medication (Enbrel); [...] set. She wants the script sent to [facility]. This has been done. She prefers to have the [employer] pen. She will call [facility] and be sure that she has an [...] may request assistance with application by calling [facility] Health Assistance Program [phone]. * Telephone Encounter - Ysabel Mario - 07/14/2012 1009 EDT Enbrel 50 mg PFS has been approved 07.14.12 through 01.13.2015. Auth # [id number]. However, patient has a 50% co-pay which is about $1175.00 for 30 day supply. * Telephone Encounter - China Penn RN - 07/13/2012 1639 EDT PPD was read as negative at PCP office. Await prior auth on Enbrel. documented in this encounter Plan of Treatment Not on file documented as of this encounter Visit Diagnoses Not on filedocumented in this encounter Care Teams Line Haul Truck Driver Relationship Specialty Start Date End Date Meredith Rapp MD PCP - General 08/09/10 08/04/18 documented as of this encounter
--- OUTSIDE RECORDS SUMMARY | 2024-03-22 16:16 | XMS_ITS | Encounter Summary ---
Author Organization [facility] Address [address] [place] [address] Care Team Providers Care Business Analytics Intern Name Role Phone Meredith Rapp MD Primary Care Provider Unavailabl e Reason for Visit * Reason Comments Other Encounter Details Date Type Department Care Team (Late st Contact Info) Description 07/13/2013 Refill [facility] Rheumatology & [facility]ology [facility] [address] [place] [address] Tabatha Degroot PAAltafC [address] [place] [address] Other Social History Tobacco Use [...] mouth every week 20 Tab 1 07/13/2013 05 4 documented in this encounter Plan of Treatment Not on file documented as of this encounter Visit Diagnoses Not on filedocumented in this encounter Care Teams Business Analytics Intern Relationship Specialty Start Date End Date Meredith Rapp MD PCP - General 08/09/10 08/04/18 documented as of this encounter
--- OUTSIDE RECORDS SUMMARY | 2024-03-22 16:16 | XMS_ITS | Encounter Summary ---
Author Organization [facility] Address [address] [place] [address] Care Team Providers Care Seat Joiner Chainstitch Name Role Phone Unknown, Provider Primary Care Provider Unava ilable Encounter Details Date Type Department Care Team (Late st Contact Info) Description 05/24/1999 Results Only [facility] conversion [address] [place] [address] Kendal Wu MD [address] [facility] [address] [place] [id number] Social History Tobacco Use Types Packs/Day [...] ? REILLY HUI ? Accession #: ? [id number] : ? 1970 (Age: 28) ??F ?Collect Date: ? 05/24/1999 Location: ?Receive Date: ? 05/24/1999 Provider: ?KENDAL WU MD Copy to: ?KENDAL WU MD ? Specimen/Source: ?Pap Smear (One Slide) Last Menstrual Period: ? GYNECOLOGIC ??CYTOPATHOLOGY ??REPORT Name: REILLY HUI ? FA : 1970 ?? 28Y F ?Client ID: [id number] SS#: [id number] ? Clinician: KENDAL WU MD ?? Location: [facility] ??Copy to: ?? Specimen: ?Pap Smear (One [...] ? Reviewed And Electronically Signed By: ? Declan Singh, CT(ASCP) ? Report Date: ?? 05/24/1999 [facility] Archived Tests - Final Diagnosis Text Field: Clinical History : ;Norplant. Spotting. ? Document reviewed and electronically signed by: ? Conversion ? Report Date: ??05/24/1999 00:00 End of Report [facility] 05/24/1999 7:29 EST 05/24/1999 7:30 EST us Kendal Wu MD PATHOLOGY ORDERABLES Final Resu lt Performing Organization Address City/State/[facility] Co de Phone Number [facility] [address] [place] [phone] documented in this encounter Visit Diagnoses Not on filedocumented in this encounter Care Teams Seat Joiner Chainstitch Relationship Specialty Start Date End Date Unknown, Provider, PCP - General 08/08/09 08/08/10 documented as of this encounter
--- OUTSIDE RECORDS SUMMARY | 2024-03-22 16:16 | XMS_ITS | Encounter Summary ---
Author Organization [facility] Address [address] [place] [address] Care Team Providers Care Coremaker Experimental Name Role Phone Unknown, Provider Primary Care Provider Unava ilable Encounter Details Date Type Department Care Team ([facility] st Contact Info) Description 06/15/2004 Results Only [facility] conversion [address] [place] [address] Emily Curry, YARN CARRIER [address] [place], [place] [phone] Social History Tobacco Use Types Packs/Day Years [...] ? REILLY HUI ? Accession #: ? [id number] : ? 1970 (Age: 33) ??F ?Collect [...] Date: ??06/21/2004 11:37 End of Report [facility] 06/15/2004 06/19/2004 us Emily Curry NP PATHOLOGY ORDERABLES Final Resu lt [facility] [address] [place] [address] documented in this encounter Visit Diagnoses Not on filedocumented in this encounter Care Teams Coremaker Experimental Relationship Specialty Start Date End Date Unknown, Provider, PCP - General 08/08/09 08/08/10 documented as of this encounter
--- OUTSIDE RECORDS SUMMARY | 2024-03-22 16:16 | XMS_ITS | Encounter Summary ---
Author Organization [facility] Address [address] [place] [address] Care Team Providers Care Field Operations Farm Manager Name Role Phone Meredith Rapp MD Primary Care Provider Unavailabl e Reason for Visit * Reason Onset Date Comments Results 06/22/2012 Encounter Details Date Type Department Care Team (Late st Contact Info) Description 06/22/2012 Telephone [facility] Rheumatology & Immunology - [address] [phone] Etelvina Hernandez MD [address] [facility] [address] [place] [address] Results Social History Tobacco Use [...] Encounter - Etelvina Hernandez MD - 06/22/2012 1931 EST Repeat LFTs now normal. Would restart methotrexate at 15 mg weekly, recheck labs as previous every 2 months. Message left on home machine. documented in this encounter Plan of Treatment Not on file documented as of this encounter Visit Diagnoses Not on filedocumented in this encounter Care Teams Field Operations Farm Manager Relationship Specialty Start Date End Date Meredith Rapp MD PCP - General 08/09/10 08/04/18 documented as of this encounter
--- OUTSIDE RECORDS SUMMARY | 2024-03-22 16:16 | XMS_ITS | Encounter Summary ---
Author Organization [facility] Address [address] [place] [address] Care Team Providers Care Manager Embalmer Funeral Director Name Role Phone Meredith Rapp MD Primary Care Provider Unavailabl e Encounter Details Date Type Department Care Team (Late st Contact Info) Description 10/24/2010 Phlebotomy Only [facility] [address] [place] [address] Supervisor Shuttle Veneering, Outpatient Psoriatic arthritis ([facility]) ([facility]); Encounter for long-term (current) use [...] ANTIBODIES Routine 10/24/2010 14:20 EDT Psoriatic arthritis ([facility]) ([facility]) Encounter for long-term (current) use of other medications SED RATE Routine 10/24/2010 14:20 EDT Psoriatic arthritis ([facility]) ([facility]) Encounter for long-term (current) use of other medications COMPLETE BLOOD COUNT AND DIFFERENTIAL Routine 10/24/2010 14:20 EDT Psoriatic arthritis ([facility]) ([facility]) Encounter for long-term (current) use of other medications COMPREHENSIVE METABOLIC PANEL (CMP) Routine 10/24/2010 14:20 EDT Psoriatic arthritis ([facility]) ([facility]) Encounter for long-term (current) use of other medications documented in this encounter Results * CCP ANTIBODIES (10/24/2010 14:20 EDT) Pathologist [facility] CCP Antibodies 0.42 <5.01 U/ml LINDSAY MORGAN 10/24/2010 14:2 0 EDT 10/24/2010 14:41 EDT Etelvina Hernandez MD IMMUNOLOGY AND SEROLOGY ORDER GABY Final Result Performing Organization Address [facility] de Phone Number [facility] [address] [place] [address] * SED. RATE:WESTERGREN (10/24/2010 14:20 EDT) Pathologist [facility] Sed. Rate Westbasilioren 14 0 - 20 mm/hr [facility] Blood specimen (specimen) 10/24/2010 14:20 EDT 10/24/2010 14:41 EDT Etelvina Hernandez MD HEMATOLOGY & PF4 ORDERABLES F inal Result Performing Organization Address [facility] de Phone Number [facility] [address] [place] [address] * HEMAGRAM AND DIFFERENTIAL (10/24/2010 14:20 EDT) Pathologist [facility] WBC 9.02 4.0 - 12.4 K/cmm [facility] RBC 4.87 3.86 - 5.04 M/cmm [facility] Hemoglobin 14.7 11.6 - 15.2 gm/dl [facility] HCT 43.2 34.9 - 44.4 % [facility] [...] [facility] Type of Diff: Automated [facility] Blood specimen (specimen) 10/24/2010 14:20 EDT 10/24/2010 14:41 EDT us Etelvina Hernandez MD PACKAGES & DNA PROBE ORDERABL ES Final Result [facility] [address] [place] [address] * COMPREHENSIVE METABOLIC PANEL (CMP) (10/24/2010 14:20 EDT) Potassium 4.0 3.5 - 5.0 mEq/L [facility] Sodium 143 136 - 145 mEq/L [facility] Chloride 104 96 - 110 mEq/L [facility] CO2 28 24 - 32 mEq/L [facility] Total Alkaline Phosphatase 96 38 - 126 U/L [facility] Bilirubin, Total 0.7 0.2 - 1.3 mg/dl [facility] AST 18 15 - 46 U/L [facility] ALT 14 9 - 52 U/L [facility] Albumin 4.5 3.4 - 4.9 g/dl [facility] Total Protein 7.7 6.5 - 8.3 g/dl [facility] Creatinine 0.80 0.7 - 1.5 mg/dl [facility] GFR, Calculated >60 ml/min/1.7 3m2 [facility] BUN 16 10 - 26 mg/dl [facility] Calcium 9.2 8.5 - 10.5 mg/dl [facility] Calculated Calcium 9.1 8.5 - 10.5 mg/dl [facility] Glucose, Serum 99 70 - 100 mg/dl [facility] Fasting? No [facility] Blood specimen (specimen) 10/24/2010 14:20 EDT 10/24/2010 14:41 EDT us Etelvina Hernandez MD CHEMISTRY & BLOOD GAS ORDERAB LES Final Result [facility] [address] [place] [address] documented in this encounter Visit Diagnoses Diagnosis Psoriatic arthritis ([facility]) Psoriatic arthropathy Encounter for long-term (current) use of other medications documented in this encounter Care Teams Manager Embalmer Funeral Director Relationship Specialty Start Date End Date Meredith Rapp MD PCP - General 08/09/10 08/04/18 documented as of this encounter
--- OUTSIDE RECORDS SUMMARY | 2024-03-22 16:16 | XMS_ITS | Encounter Summary ---
Author Organization [facility] Address [address] [place] [address] Care Team Providers Care Spanish Instructor Name Role Phone Meredith Rapp MD Primary Care Provider Unavailabl e Reason for Visit * Reason Comments Medications Refill pending Labs Only standing orders pend ed Follow-up psoriatic arthritis/ Encounter Details Date Type Department Care Team (Late st Contact Info) Description 10/07/2011 14:15 EDT Office Visit [facility] Rheumatology & Immunology - [address] [address] Cecilia Bustos, MICHAEL [address] [facility] [address] [place] [address] Psoriatic arthritis (CMS-HCC) (HCC-CMS) (Primary Dx); Encounter for [...] #2 synovitis. Complete fists with strong symmetric clinical medical transcriptionist strength Hips: Full ROM without pain or [...] MD. 10/08/2011 * Jacki Watt - 10/07/2011 6535 EDT Subjective: Patient ID: Nina Boothe is [...] encounter Visit Diagnoses Diagnosis Psoriatic arthritis ([facility] Primary Psoriatic arthropathy Encounter for long-term (current) [...] documented as of this encounter Care Teams Spanish Instructor Relationship Specialty Start Date End Date Meredith Rapp MD PCP - General 08/09/10 08/04/18 documented as of this encounter
[2024-03-22 21:09] LABS: Abs Immature Grans 0.02 10^3/uL (0.0-0.06); Absolute Basophil Count 0.05 10^3/uL (0.0-0.2); Absolute Eosinophil Count 0.13 10^3/uL (0.0-0.7); Absolute Lymphocyte Count 2.18 10^3/uL (1.2-3.4); Absolute Monocyte Count 0.66 10^3/uL (0.1-0.8); Absolute Neutrophil Count 5.01 10^3/uL (1.2-6.7); Basophils % 0.6 %; Eosinophils % 1.6 %; HCT 42.6 % (36.0-46.0); Immature Grans % 0.2 %; Lymphocytes % 27.1 %; MCH 33.1 pg (27.0-33.0); MCHC 35.2 % (32.0-36.0); MCV 94 fL (80-95); Monocytes % 8.2 %; Neutrophils % 62.3 %; Platelet Count 283 10^3/uL (130-400); RBC 4.53 10^6/uL (3.93-5.22); RDW 12.2 % (11.7-14.6); RDW-SD 42.7 fL; WBC 8.05 10^3/uL (4.4-10.8)
[2024-03-22 21:25] LABS: ALT 21 U/L (14-59); AST 16 U/L (15-37); Albumin 4.3 g/dL (3.4-5.0); Alkaline Phosphatase 82 U/L (46-116); Anion Gap 6.4 mmol/L (3-11); BUN 23 mg/dL (7-18); Bilirubin, Total 0.45 mg/dL (0.2-1.0); CO2 30.6 mmol/L (21.0-32.0); CREATININE 1.1 mg/dL (0.55-1.02); Calcium 9.3 mg/dL (8.5-10.1); Chloride 100 mmol/L (98-107); Estimated GFR 59.34 (mL/min/1.73m2); Glucose 90 mg/dL (74-106); Sodium 137 mmol/L (136-145); Total Protein 7.7 g/dL (6.4-8.2)
== END 2024-03-22 16:10 | disposition home or self-care (01) ==
LOC: NCHCN 16:09
PROVIDERS: PCP Nurse Practitioner Family; Visit Provider Nurse Practitioner Family
DX: L40.50 Arthropathic psoriasis, unspecified (principal)
CPT/HCPCS: 80053; 85025

== ENCOUNTER 2024-05-19 11:13 | Outpatient (REF) | payer BC, SELFPAY ==
[2024-05-19 16:42] LABS: COMMENT (LAB VIEW ONLY) 123.05 mg/dL; Microalb ug/mg Crea 3.3 ug/mg Cr
== END 2024-05-19 11:14 | disposition home or self-care (01) ==
LOC: NCHCN 11:13
PROVIDERS: PCP Nurse Practitioner Family; Visit Provider Nurse Practitioner Family
DX: I10 Essential (primary) hypertension (principal)
CPT/HCPCS: 82043; 82570

== ENCOUNTER 2024-06-15 04:43 | Outpatient (CLI) | payer BC, SELFPAY ==
[2024-06-15 10:18] LABS: Abs Immature Grans 0.02 10^3/uL (0.0-0.06); Absolute Basophil Count 0.01 10^3/uL (0.0-0.2); Absolute Eosinophil Count 0.05 10^3/uL (0.0-0.7); Absolute Lymphocyte Count 1.79 10^3/uL (1.2-3.4); Absolute Monocyte Count 0.44 10^3/uL (0.1-0.8); Absolute Neutrophil Count 2.45 10^3/uL (1.2-6.7); Basophils % 0.2 %; Eosinophils % 1.1 %; HCT 43.6 % (36.0-46.0); Immature Grans % 0.4 %; Lymphocytes % 37.6 %; MCH 32.1 pg (27.0-33.0); MCHC 34.4 % (32.0-36.0); MCV 93 fL (80-95); MPV 9.2 fL (8.0-11.0); Monocytes % 9.2 %; Neutrophils % 51.5 %; Platelet Count 212 10^3/uL (130-400); RBC 4.68 10^6/uL (3.93-5.22); RDW 12.5 % (11.7-14.6); WBC 4.76 10^3/uL (4.4-10.8)
[2024-06-15 10:40] LABS: ALT 28 U/L (14-59); AST 24 U/L (15-37); Albumin 3.8 g/dL (3.4-5.0); Alkaline Phosphatase 64 U/L (46-116); Anion Gap 4.3 mmol/L (3-11); BUN 17 mg/dL (7-18); Bilirubin, Total 0.59 mg/dL (0.2-1.0); CO2 30.7 mmol/L (21.0-32.0); Calcium 9.1 mg/dL (8.5-10.1); Chloride 105 mmol/L (98-107); Estimated GFR 66.53 (mL/min/1.73m2); Glucose 90 mg/dL (74-106); Potassium 3.8 mmol/L (3.5-5.1); Sodium 140 mmol/L (136-145); Total Protein 7.4 g/dL (6.4-8.2)
== END 2024-06-15 04:44 | disposition home or self-care (01) ==
PROVIDERS: PCP Nurse Practitioner Family; Visit Provider Nurse Practitioner Family
DX: L40.50 Arthropathic psoriasis, unspecified (principal); Z79.899 Other long term (current) drug therapy
CPT/HCPCS: 36415; 80053; 85025

== ENCOUNTER 2024-09-27 04:23 | Outpatient (CLI) | payer BC, SELFPAY ==
[2024-09-27 07:44] LABS: Abs Immature Grans 0.03 10^3/uL (0.0-0.06); Absolute Basophil Count 0.05 10^3/uL (0.0-0.2); Absolute Eosinophil Count 0.26 10^3/uL (0.0-0.7); Absolute Lymphocyte Count 1.91 10^3/uL (1.2-3.4); Absolute Monocyte Count 0.57 10^3/uL (0.1-0.8); Absolute Neutrophil Count 4.13 10^3/uL (1.2-6.7); Basophils % 0.7 %; Eosinophils % 3.7 %; HCT 45.4 % (36.0-46.0); HGB 15.3 g/dL (11.2-15.7); Immature Grans % 0.4 %; Lymphocytes % 27.5 %; MCH 31.9 pg (27.0-33.0); MCHC 33.7 % (32.0-36.0); MCV 95 fL (80-95); MPV 9.4 fL (8.0-11.0); Monocytes % 8.2 %; Neutrophils % 59.5 %; Platelet Count 267 10^3/uL (130-400); RBC 4.79 10^6/uL (3.93-5.22); RDW-SD 44.9 fL; WBC 6.95 10^3/uL (4.4-10.8)
[2024-09-27 08:18] LABS: ALT 93 U/L (14-59); AST 50 U/L (15-37); Albumin 4.1 g/dL (3.4-5.0); Alkaline Phosphatase 96 U/L (46-116); Anion Gap 8.3 mmol/L (3-11); BUN 36 mg/dL (7-18); Bilirubin, Total 0.4 mg/dL (0.2-1.0); CO2 28.7 mmol/L (21.0-32.0); CREATININE 0.8 mg/dL (0.55-1.02); Calcium 9.2 mg/dL (8.5-10.1); Chloride 102 mmol/L (98-107); Estimated GFR 86.42 (mL/min/1.73m2); Glucose 84 mg/dL (74-106); Potassium 4.9 mmol/L (3.5-5.1); Sodium 139 mmol/L (136-145); Total Protein 7.8 g/dL (6.4-8.2)
== END 2024-09-27 04:24 | disposition home or self-care (01) ==
PROVIDERS: PCP Nurse Practitioner Family; Visit Provider Nurse Practitioner Family
DX: L40.50 Arthropathic psoriasis, unspecified (principal); Z79.899 Other long term (current) drug therapy
CPT/HCPCS: 36415; 80053; 85025

== ENCOUNTER 2024-12-14 01:07 | Outpatient (CLI) | payer BC, SELFPAY ==
--- NOTE | 2024-12-14 08:36 | DI.MAMMO_ITS ---
Exam(s) MAMMO SCREENING EXAM: MAMMO SCREENING CLINICAL HISTORY: SCREENING, Z12.31. TECHNIQUE: Bilateral full field digital CC and MLO mammographic images were obtained with 3D tomosynthesis and utilizing computer aided detection (CAD). COMPARISON: Prior mammograms were reviewed. Prior ultrasound 11 26 22 was reviewed FINDINGS: There are no new right breast findings. In the left breast on the CC view there is an asymmetric density-possible nodule located 8 cm in from the nipple, slightly medial of center and measuring approximately 6 x 6 mm. Spot compression CC view recommended. On the left MLO view there is a similar appearing density located 7 cm in from the nipple which also require additional spot compression MLO view. There is scattered benign-appearing microcalcifications in both breasts. There are no new malignant-appearing microcalcification groups. There is no significant architectural distortion nor skin thickening-retraction. IMPRESSION: 1. No radiographic evidence of malignancy in right breast. 2. Left breast findings as above. Spot compression CC and MLO views as well as complete left breast ultrasound recommended. BI-RADS Category 0 - Incomplete: Need additional imaging evaluation Breast Density - Category C - The breast are heterogeneously dense, which may obscure small masses. Breast density Category C or D implies that the patient has dense breast tissue. Dense breast tissue can make it harder to find cancer on a mammogram. Dense breast tissue is also associated with an increased risk of breast cancer. This information about the result of the mammogram report was provided to the patient to raise their awareness. Use this report when you speak with the patient about their risks for breast cancer, which includes their family history. At that time, you may recommend additional screening tests (Ultrasound or MRI) as these tests may add significant information. A negative radiographic report should not delay biopsy if a dominant or clinically suspicious mass is present. Up to ten percent of cancers are not identified on mammography. A negative report may reinforce clinical impression. Adenosis and dense breasts may obscure an underlying neoplasm. False positive reports average 6 to 10%. Patient will receive a letter notifying them of these results.
== END 2024-12-14 01:27 ==
LOC: DI 01:07
PROVIDERS: PCP Nurse Practitioner Family; Visit Provider Nurse Practitioner Family
DX: Z12.31 Encounter for screening mammogram for malignant neoplasm of breast (principal); R92.333 Mammographic heterogeneous density, bilateral breasts
CPT/HCPCS: 77063; 77067

== ENCOUNTER 2024-12-16 08:01 | Outpatient (CLI) | payer BC, SELFPAY ==
--- NOTE | 2024-12-16 | DI.MAMMO_ITS ---
Exam(s) MG MAMMO SCREEN CALL BACK UNI US BREAST LT COMPLETE EXAM: MG MAMMO SCREEN CALL BACK UNI LEFT AND COMPLETE LEFT BREAST ULTRASOUND CLINICAL HISTORY: F/U ABNL MAMMO, ASYMMETRIC DENSITY POSSIBLE NODULE LT BREAST. TECHNIQUE: Unilateral LEFT BREAST spot mammographic images obtained with 3D tomosynthesisand utilizing computer aided detection (CAD). . Complete LEFT breast Ultrasound was also performed, including all 4 quadrants, the retroareolar region, and the ipsilateral axilla. COMPARISON: Prior mammograms were reviewed. This additional imaging was performed due to findings described on the recent screening mammogram of 12/14/2024. FINDINGS: DIAGNOSTIC MAMMOGRAM: Additional CC AND MLO mammographic views performed todayrender the previously described mammographic findings less concerning and more similar in appearance to prior mammograms. COMPLETE LEFT BREAST ULTRASOUND: Ultrasound performed today reveals no evidence of solid or significant cystic lesions in all 4 quadrants of the left breast.. Scanning of the ipsilateral axilla reveals no significant adenopathy. IMPRESSION: 1. No radiographic evidence of malignancy. 2. No ultrasound evidence of malignancy. Negative complete left breast ultrasound Appropriate follow-up as discussed by myself with the patient today is repeat left breast MAMMOGRAM in 6 months, with earlier imaging if a self detected breast change is noted. The patient was informed of these findings and recommendations by myself prior to leaving the department today. BI-RADS Category 3 - 6 month - Probably Benign Finding: Recommend follow-up mammography in 6 months Breast Density - Category C - The breast are heterogeneously dense, which may obscure small masses. Breast density Category C or D implies that the patient has dense breast tissue. Dense breast tissue can make it harder to find cancer on a mammogram. Dense breast tissue is also associated with an increased risk of breast cancer. This information about the result of the mammogram report was provided to the patient to raise their awareness. Use this report when you speak with the patient about their risks for breast cancer, which includes their family history. At that time, you may recommend additional screening tests (Ultrasound or MRI) as these tests may add significant information. A negative radiographic report should not delay biopsy if a dominant or clinically suspicious mass is present. Up to ten percent of cancers are not identified on mammography. A negative report may reinforce clinical impression. Adenosis and dense breasts may obscure an underlying neoplasm. False positive reports average 6 to 10%. Patient will receive a letter notifying them of these results.
== END 2024-12-16 08:21 ==
LOC: DI 08:02
PROVIDERS: PCP Nurse Practitioner Family; Visit Provider Nurse Practitioner Family
DX: Z12.31 Encounter for screening mammogram for malignant neoplasm of breast (principal); R92.333 Mammographic heterogeneous density, bilateral breasts
CPT/HCPCS: 76642; 77063; 77067

== ENCOUNTER 2025-01-18 00:40 | Outpatient (CLI) | payer BC, SELFPAY ==
[2025-01-18 10:49] LABS: Abs Immature Grans 0.02 10^3/uL (0.0-0.06); HCT 43.9 % (36.0-46.0); HGB 15.1 g/dL (11.2-15.7); Immature Grans % 0.3 %; MCH 32.4 pg (27.0-33.0); MCHC 34.4 % (32.0-36.0); MCV 94 fL (80-95); MPV 10.0 fL (8.0-11.0); Platelet Count 299 10^3/uL (130-400); RBC 4.66 10^6/uL (3.93-5.22); RDW 12.6 % (11.7-14.6); RDW-SD 43.2 fL; WBC 6.36 10^3/uL (4.4-10.8)
[2025-01-18 11:50] LABS: ALT 20 U/L (14-59); AST 19 U/L (15-37); Albumin 4.2 g/dL (3.4-5.0); Alkaline Phosphatase 65 U/L (46-116); Anion Gap 7.0 mmol/L (3-11); BUN 19 mg/dL (7-18); Bilirubin, Total 0.5 mg/dL (0.2-1.0); CO2 32.0 mmol/L (21.0-32.0); Calcium 9.4 mg/dL (8.5-10.1); Chloride 102 mmol/L (98-107); Estimated GFR 66.12 (mL/min/1.73m2); Glucose 87 mg/dL (74-106); Potassium 4.3 mmol/L (3.5-5.1); Sodium 141 mmol/L (136-145); Total Protein 7.6 g/dL (6.4-8.2)
== END 2025-01-18 00:41 | disposition home or self-care (01) ==
PROVIDERS: PCP Nurse Practitioner Family; Visit Provider Nurse Practitioner Family
DX: L40.50 Arthropathic psoriasis, unspecified (principal); Z79.899 Other long term (current) drug therapy
CPT/HCPCS: 36415; 80053; 85025

== ENCOUNTER 2025-04-26 00:18 | Outpatient (CLI) | payer BC, SELFPAY ==
[2025-04-26 07:32] LABS: Abs Immature Grans 0.03 10^3/uL (0.0-0.06); HCT 40.6 % (36.0-46.0); HGB 13.5 g/dL (11.2-15.7); Immature Grans % 0.4 %; MCH 31.0 pg (27.0-33.0); MCHC 33.3 % (32.0-36.0); MCV 93 fL (80-95); MPV 9.2 fL (8.0-11.0); Platelet Count 205 10^3/uL (130-400); RBC 4.35 10^6/uL (3.93-5.22); RDW 13.1 % (11.7-14.6); RDW-SD 45.0 fL; WBC 7.43 10^3/uL (4.4-10.8)
[2025-04-26 11:48] LABS: ALT 31 U/L (10-49); AST 35 U/L (<34); Albumin 3.9 g/dL (3.2-5.0); Alkaline Phosphatase 79 U/L (46-116); Anion Gap 8.1 mmol/L (3-11); BUN 14 mg/dL (9-23); Bilirubin, Total 0.5 mg/dL (0.2-1.2); CO2 28.9 mmol/L (20.0-31.0); Calcium 8.8 mg/dL (8.3-10.6); Chloride 105 mmol/L (98-107); Glucose 99 mg/dL (74-106); Potassium 4.4 mmol/L (3.5-5.1); Sodium 142 mmol/L (136-145); Total Protein 6.5 g/dL (5.7-8.2)
== END 2025-04-26 00:19 | disposition home or self-care (01) ==
PROVIDERS: PCP Nurse Practitioner Family; Visit Provider Nurse Practitioner Family
DX: L40.50 Arthropathic psoriasis, unspecified (principal); Z79.899 Other long term (current) drug therapy
CPT/HCPCS: 36415; 80053; 85025